=== PATIENT | female | born 2005 | race Caucasian/White ===

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

== ENCOUNTER 2024-08-19 14:02 | Emergency (ER) | payer OTHER, SELFPAY ==
--- OUTSIDE RECORDS SUMMARY | 2024-08-19 14:13 | XMS REPORT | Continuity of Care Document ---
Author Name Unknown Address [address] [facility] [address]. [address] [id number] [facility] Address [address] [facility]. [address] [place] [address] Care Team Providers Care Propulsion Engineer Name Role Phone IVONNE NAYAK Primary Care Physician Sushma Zuluaga Attending Clinician [phone] SUSHMA SESAY Attending Clinician UnavailIVONNE Mondragon Attending Clinician UnavailASHLEY Polk Attending Clinician Unavailable GREG PATEL Attending Clinician Unavailable GREG PATEL Attending Clinician Unavailable Ivonne Nayak PA-C Attending Clinician [phone] IVY TAVARES Attending Clinician CASIE Schuster Attending Clinician Unavailable CASIE ONEIL Attending Clinician Unavailable Simona Paz Attending Clinician Ivonne Escobar PA-C Attending Clinician [phone] Doctor Unassigned, [place] Attending Clinician U Ivy Oglesby MD Attending Clinician + [phone] Kadi Romero MD Attending Clinician [phone] KADI ROMERO Attending Clinician UnavailJanny Lincoln LMSW Attending Clinician [phone] Sushma Thornton Attending Clinician +[phone] ALEJO LLOYD Attending Clinici an Unavailable Alejo Lloyd MD Attending Clin ician RICARDO SEVERINO Attending Clinician Unavailable Mere PACRicardo Attending Clinician [phone] Asael Lugo MD, Hanna Attending Clinician + [phone] Christiano Hartman MD Attending Clinician [phone] CHRISTIANO HARTMAN Attending Clinician Unavailable YENI REINA Attending Clinician Unavail able Yeni Reina MD Attending Clinician [phone] Zain Rosas MD Attending Clinician [phone] ZAIN ROSAS Attending Clinician Unavailable JENNIFER ROCHE Attending Clinician Unavailab Jennifer Persaud DO Attending Clinician [phone] Jessica ORTEGA Attending Clinician Unavailable Jessica Jarvis Attending Clinician [phone] Therapy, [facility] Attending Clinician Unavailable Harman Escalona DO Attending Clinician [phone] HARMAN ESCALONA Attending Clinician Unavailable YORDAN SELF Attending Clinician Lesvia altman [facility] Attending Clinician U Yordan Crandall MD Attending Clinician + SEBASTIEN SOLANO Attending Clinician Unavailable Elizabeth MANUEL, Claudia [place] Attending Clinician Nurse, Jazz Bucio Attending Clinician Unavailable CHEN SHIELDS Attending Clinician Unavailable Chen Shields MD Attending Clinician [phone] Jeison Farrell Attending Clinician [phone] CHRISTIANO DISLA Attending Clinician Unavailable Christiano Franklni Attending Clinician [phone] KADI ROMERO Admitting Clinician UnavailCHEN Mclaughlin Admitting Clinician Unavailable CHRISTIANO DISLA Admitting Clinician Unavailable Payers Payer Name Policy Type Policy Number Effective Date Expirati on Date Source [employer] MEDICAID [id number] 2015 00:00:00 Problems Condition Name Condition Details Condition Category Status Onset Date Resolution Date Last Treatment Date Treating Clinician Comments Source Dysmenorrh ea Dysmenorrh ea Disease Active 3-12 00:00: 00 [facility] Counseling for initiation of control method Counseling for initiation of control method Disease Active 3-12 00:00: 00 [facility] Weight loss Weight loss Disease Active 1-11 00:00: 00 [facility] Recurrent infections Recurrent infections Disease Active 1-11 00:00: 00 [facility] Recurrent infections Recurrent infections Disease Active 1-11 00:00: 00 [facility] 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 02-14 00:00: 00 [facility] 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 02-14 00:00: 00 [facility] Allergies, Adverse Reactions, Alerts Allergy Name Allergy Type Status Severity Reaction(s) Onset Date Inactive Date Treating Clinician Comments Source NO KNOWN ALLERGIE S Drug Class Active [facility] Social History Social Habit Start Date Stop Date Quantity Comments Source Gender identity [facility] Sexual orientation U [facility] Alcoholic beverage intake 2024-05-10 00:00:00 2024-05-10 00:00:00 Lifetime non-drinker (finding) [facility] History of Social function 2024-02-15 00:00:00 2024-02-15 00:00:00 [facility] Alcohol intake 2023-10-21 00:00:00 2023-10-21 00:00:00 Lifetime non-drinker (finding) [facility] Tobacco use and exposure 2023-06-08 00:00:00 2023-06-08 00:00:00 User of smokeless tobacco [facility] Tobacco Comment 2023-06-08 00:00:00 2023-06-08 00:00:00 Vapes [facility] Exposure to SARS-CoV-2 (event) 2023-01-18 00:00:00 2023-01-28 14:47:00 Not sure [facility] Sex assigned at 2004 00:00:00 2005 00:00:00 [facility] Smoking Status Start Date Stop Date Source Never smoked tobacco [facility] Medications Ordered Medication Name Filled Medication Name Start Date Stop Date Current Medication? Ordering Clinician Indication Dosage Frequency Signature (SIG) Comments Components Source cetirizine (ZYRTEC) 10 mg tablet 2023-08 00:00: 00 09-11 05:59 :00 Yes [id number] 10mg Take 1 tablet by mouth in the morning for 30 days. [facility] fluticasone propionate 50 mcg/actuati on nasal spray 2023-08 00:00: 00 09-11 05:59 :00 Yes [id number] 1{spray } Use 1 [place] in each nostril in the morning for 30 days. [facility] FLUoxetine 10 mg capsule 05-10 00:00: 00 Yes [id number] Take one capsule once at day for two weeks then increase to two tabs po once a day [facility] norgestimat e-ethinyl estradioL 0.25-35 mg-mcg per tablet 02-25 00:00: 00 Yes [id number] 1{tbl} Take 1 tablet by mouth in the morning. [facility] traZODone 50 mg tablet 02-14 00:00: 00 Yes [id number] 50mg Take 1 tablet by mouth at bedtime. [facility] amoxicillin -pot clavulanate 600-42.9 mg/5 mL suspension 10-21 00:00: 00 02-14 00:00 :00 No [id number] Give 7.5 ml po bid for 10 days [facility] famotidine 20 mg tablet 2022-08 00:00: 00 Yes 20mg Take 1 tablet by mouth in the morning and 1 tablet in the evening. [facility] ondansetron 8 mg disintegrat ing tablet 2022-08 00:00: 00 Yes [id number] 8mg Take 1 tablet by mouth every 8 (eight) hours as needed for Nausea and Vomiting (N/V). [facility] traZODone 50 mg tablet 2022-08- 00:00: 00 02-14 00:00 :00 No [id number] 50mg Take 1 tablet by mouth at bedtime. [facility] azithromyci n (ZITHROMAX) 200 mg/5 mL suspension 2022-08 0-09 00:00: 00 07-22 00:00 :00 No [id number] 12.5 ml po day 1 then 6.25 ml po days 2-5 [facility] hydrOXYzine 10 mg tablet 03-30 00:00: 00 06-08 00:00 :00 No [id number] Take 1 to 2 po qhs for sleep and anxiety [facility] amoxicillin -pot clavulanate 600-42.9 mg/5 mL suspension - 00:00: 00 06-08 00:00 :00 No [id number] Take 10 ml po bid for 10 days [facility] FLUOXETINE 20 mg capsule - 00:00: 00 03-30 00:00 :00 No [id number] TAKE ONE (1) CAPSULE(S) BY MOUTH EVERY MORNING. [facility] pedi multivit no.140-iron fum (KIDS MULTIVITAMI N COMPLETE) 18 mg iron Chew -20 00:00: 00 Yes [id number] 1{tbl} Take 1 tablet by mouth in the morning. [facility] fluticasone propionate 50 mcg/actuati on nasal spray -20 00:00: 00 Yes [id number] 1{spray } Use 1 [place] in each nostril in the morning. [facility] pedi multivit no.140-iron fum (KIDS MULTIVITAMI N COMPLETE) 18 mg iron Chew -20 00:00: 00 Yes [id number] 1{tbl} Take 1 tablet by mouth in the morning. [facility] cetirizine 10 mg tablet -20 00:00: 03-30 00:00 :00 No [id number] 10mg Take 1 tablet by mouth in the morning. [facility] azithromyci n 250 mg tablet 12-18 00:00: 00 03-30 00:00 :00 No [id number] 250mg Take 1 tablet by mouth in the morning. [facility] FLUoxetine 20 mg capsule 12-18 00:00: 00 01-16 00:00 :00 No 20mg Take 1 capsule by mouth in the morning. [facility] ibuprofen (IBU) tablet 400 mg 12-02 20:00: 00 12-02 19:16 :00 No [id number] 400mg [facility] dextrometho rphan-guaif enesin 10-100 mg/5 mL solution 2021-08 0 00:00: 00 Yes [id number] 10mL Take 10 mL by mouth every 6 (six) hours as needed for Cough. [facility] cetirizine 10 mg tablet 2021-08 0 00:00: 00 12-18 00:00 :00 No [id number] 10mg Take 1 tablet by mouth in the morning. [facility] fluticasone propionate 50 mcg/actuati on nasal spray 2021-08 0 00:00: 00 12-18 00:00 :00 No [id number] 1{spray } Use 1 [place] in each nostril in the morning. [facility] azithromyci n (ZITHROMAX Z-MILENA) 250 mg tablet 2021-08 0 00:00: 00 12-18 00:00 :00 No [id number] 250mg Z-Milena = 500 mg day 1, then 250 mg days 2 to 5. [facility] Immune Globulin, Human,, IGG, (HIZENTRA) 4 gram/20 mL (20 %) subcutaneou s infusion RTU 9- 00:00: 00 Yes [id number] 8g inject 40 mL under the skin every 2 (two) weeks. [facility] pedi multivit no.140-iron fum (KIDS MULTIVITAMI N COMPLETE) 18 mg iron Chew 05-23 00:00: 00 12-18 00:00 :00 No [id number] 1{tbl} Take 1 tablet by mouth daily. [facility] cefdinir 125 mg/5 mL suspension 05-23 00:00: 00 06-07 04:59 :00 No [id number] 250mg Take 10 mL by mouth in the morning and 10 mL in the evening. Do all this for 14 days. [facility] ibuprofen (IBU) tablet 600 mg 03-21 05:30: 00 03-21 05:18 :00 No 600mg 600 mg, Oral, ONCE, 1 dose, On Thu03/21/22 at 0030, AAKASH [facility] Immune Globulin, Human,, IGG, (HIZENTRA) 4 gram/20 mL (20 %) subcutaneou s infusion RTU 02-24 00:00: 00 05-29 00:00 :00 No [id number] 8g inject 40 mL under the skin every 2 (two) weeks. [facility] amoxicillin 400 mg/5 mL oral suspension 01-01 00:00: 00 02-24 00:00 :00 No [id number] Give 12.5 ml PO BID for 10 days [facility] benzonatate (TESSALON PERLES) 100 mg capsule 01-01 00:00: 02-24 00:00 :00 No [id number] 100mg Take 1 capsule by mouth every 8 (eight) hours as needed for Cough. [facility] albuterol (PROAIR HFA) 90 mcg/actuati on inhaler 11-29 00:00: 00 Yes [id number] 2{puff} Inhale 2 Puffs every 6 (six) hours as needed for Wheezing or Shortness of Breath. [facility] fluticasone propionate 44 mcg/actuati on inhaler 11-29 00:00: 00 Yes [id number] 2{puff} Inhale 2 Puffs 2 (two) times daily. [facility] cetirizine 10 mg tablet 11-29 00:00: 00 06-16 00:00 :00 No [id number] 10mg Take 1 tablet by mouth daily. [facility] Immunizations Ordered Immunization Name Filled Immunization Name Date Status Comments Source Influenza Virus Vaccine Quad .5 mL IM 6+ MO (FLUZONE/FLULAVAL/FL UARIX) 2021-07-01 00:00:00 Completed Influenza Virus Vaccine Quad .5 mL IM 6+ MO 2021-07-01 00:00:00 Completed [facility] Influenza Virus Vaccine Quad .5 mL IM 6+ MO 2021-07-01 00:00:00 Completed [facility] Influenza Virus Vaccine Quad .5 mL IM 6+ MO 2021-07-01 00:00:00 Completed [facility] Influenza Virus Vaccine Quad .5 mL IM 6+ MO 2021-07-01 00:00:00 Completed [facility] Influenza Virus Vaccine Quad .5 mL IM 6+ MO 2021-07-01 00:00:00 Completed [facility] Influenza Virus Vaccine Quad .5 mL IM 6+ MO 2021-07-01 00:00:00 Completed [facility] Influenza Virus Vaccine Quad .5 mL IM 6+ MO 2021-07-01 00:00:00 Completed [facility] Influenza Virus Vaccine Quad .5 mL IM 6+ MO 2021-07-01 00:00:00 Completed [facility] Influenza Virus Vaccine Quad .5 mL IM 6+ MO 2021-07-01 00:00:00 Completed [facility] Influenza Virus Vaccine Quad .5 mL IM 6+ MO 2021-07-01 00:00:00 Completed [facility] Influenza Virus Vaccine Quad .5 mL IM 6+ MO 2021-07-01 00:00:00 Completed [facility] Influenza Virus Vaccine Quad .5 mL IM 6+ MO 2021-07-01 00:00:00 Completed [facility] Influenza Virus Vaccine Quad .5 mL IM 6+ MO 2021-07-01 00:00:00 Completed [facility] Influenza Virus Vaccine Quad .5 mL IM 6+ MO 2021-07-01 00:00:00 Completed [facility] Influenza Virus Vaccine Quad .5 mL IM 6+ MO 2021-07-01 00:00:00 Completed [facility] Influenza Virus Vaccine Quad .5 mL IM 6+ MO 2021-07-01 00:00:00 Completed [facility] Influenza Virus Vaccine Quad .5 mL IM 6+ MO 2021-07-01 00:00:00 Completed [facility] Influenza Virus Vaccine Quad .5 mL IM 6+ MO 2021-07-01 00:00:00 Completed [facility] Influenza Virus Vaccine Quad .5 mL IM 6+ MO 2021-07-01 00:00:00 Completed [facility] Influenza Virus Vaccine Quad .5 mL IM 6+ MO 2021-07-01 00:00:00 Completed [facility] Influenza Virus Vaccine Quad .5 mL IM 6+ MO 2021-07-01 00:00:00 Completed [facility] Influenza Virus Vaccine Quad .5 mL IM 6+ MO 2021-07-01 00:00:00 Completed [facility] Influenza Virus Vaccine Quad .5 mL IM 6+ MO 2021-07-01 00:00:00 Completed [facility] Influenza Virus Vaccine Quad .5 mL IM 6+ MO 2021-07-01 00:00:00 Completed [facility] Influenza Virus Vaccine Quad .5 mL IM 6+ MO 2021-07-01 00:00:00 Completed [facility] Influenza Virus Vaccine Quad .5 mL IM 6+ MO 2021-07-01 00:00:00 Completed [facility] Influenza Virus Vaccine Quad .5 mL IM 6+ MO 2021-07-01 00:00:00 Completed [facility] Influenza Virus Vaccine Quad .5 mL IM 6+ MO 2021-07-01 00:00:00 Completed [facility] Influenza Virus Vaccine Quad .5 mL IM 6+ MO 2021-07-01 00:00:00 Completed [facility] Influenza Virus Vaccine Quad .5 mL IM 6+ MO 2021-07-01 00:00:00 Completed [facility] Influenza Virus Vaccine Quad .5 mL IM 6+ MO 2021-07-01 00:00:00 Completed [facility] Influenza Virus Vaccine Quad .5 mL IM 6+ MO 2021-07-01 00:00:00 Completed [facility] Influenza Virus Vaccine Quad .5 mL IM 6+ MO (FLUZONE/FLULAVAL/FL UARIX) 2021-07-01 00:00:00 Completed [facility] Influenza Virus Vaccine Quad .5 mL IM 6+ MO (FLUZONE/FLULAVAL/FL UARIX) 2020-11-08 00:00:00 Completed [facility] Influenza Virus Vaccine Quad .5 mL IM 6+ MO 2020-11-08 00:00:00 Completed [facility] Influenza Virus Vaccine Quad .5 mL IM 6+ MO 2020-11-08 00:00:00 Completed [facility] Influenza Virus Vaccine Quad .5 mL IM 6+ MO 2020-11-08 00:00:00 Completed [facility] Influenza Virus Vaccine Quad .5 mL IM 6+ MO 2020-11-08 00:00:00 Completed [facility] Influenza Virus Vaccine Quad .5 mL IM 6+ MO 2020-11-08 00:00:00 Completed [facility] Influenza Virus Vaccine Quad .5 mL IM 6+ MO 2020-11-08 00:00:00 Completed [facility] Influenza Virus Vaccine Quad .5 mL IM 6+ MO 2020-11-08 00:00:00 Completed [facility] Influenza Virus Vaccine Quad .5 mL IM 6+ MO 2020-11-08 00:00:00 Completed [facility] Influenza Virus Vaccine Quad .5 mL IM 6+ MO 2020-11-08 00:00:00 Completed [facility] Influenza Virus Vaccine Quad .5 mL IM 6+ MO 2020-11-08 00:00:00 Completed [facility] Influenza Virus Vaccine Quad .5 mL IM 6+ MO 2020-11-08 00:00:00 Completed [facility] Influenza Virus Vaccine Quad .5 mL IM 6+ MO 2020-11-08 00:00:00 Completed [facility] Influenza Virus Vaccine Quad .5 mL IM 6+ MO 2020-11-08 00:00:00 Completed [facility] Influenza Virus Vaccine Quad .5 mL IM 6+ MO 2020-11-08 00:00:00 Completed [facility] Influenza Virus Vaccine Quad .5 mL IM 6+ MO 2020-11-08 00:00:00 Completed [facility] Influenza Virus Vaccine Quad .5 mL IM 6+ MO 2020-11-08 00:00:00 Completed [facility] Influenza Virus Vaccine Quad .5 mL IM 6+ MO 2020-11-08 00:00:00 Completed [facility] Influenza Virus Vaccine Quad .5 mL IM 6+ MO 2020-11-08 00:00:00 Completed [facility] Influenza Virus Vaccine Quad .5 mL IM 6+ MO 2020-11-08 00:00:00 Completed [facility] Influenza Virus Vaccine Quad .5 mL IM 6+ MO 2020-11-08 00:00:00 Completed [facility] Influenza Virus Vaccine Quad .5 mL IM 6+ MO 2020-11-08 00:00:00 Completed [facility] Influenza Virus Vaccine Quad .5 mL IM 6+ MO 2020-11-08 00:00:00 Completed [facility] Influenza Virus Vaccine Quad .5 mL IM 6+ MO 2020-11-08 00:00:00 Completed [facility] Influenza Virus Vaccine Quad .5 mL IM 6+ MO 2020-11-08 00:00:00 Completed [facility] Influenza Virus Vaccine Quad .5 mL IM 6+ MO 2020-11-08 00:00:00 Completed [facility] Influenza Virus Vaccine Quad .5 mL IM 6+ MO 2020-11-08 00:00:00 Completed [facility] Influenza Virus Vaccine Quad .5 mL IM 6+ MO 2020-11-08 00:00:00 Completed [facility] Influenza Virus Vaccine Quad .5 mL IM 6+ MO 2020-11-08 00:00:00 Completed [facility] Influenza Virus Vaccine Quad .5 mL IM 6+ MO 2020-11-08 00:00:00 Completed [facility] Influenza Virus Vaccine Quad .5 mL IM 6+ MO 2020-11-08 00:00:00 Completed [facility] Influenza Virus Vaccine Quad .5 mL IM 6+ MO 2020-11-08 00:00:00 Completed [facility] Influenza Virus Vaccine Quad .5 mL IM 6+ MO 2020-11-08 00:00:00 Completed [facility] Influenza Virus Vaccine Quad .5 mL IM 6+ MO (FLUZONE/FLULAVAL/FL UARIX) 2020-11-08 00:00:00 Completed [facility] Pneumococcal Polysaccharide, PPSV23 (PNEUMOVAX) 2020-09-24 00:00:00 Completed [facility] TDAP 2020-09-24 00:00:00 Completed [facility] Pneumococcal Polysaccharide, PPSV23 (PNEUMOVAX) 2020-09-24 00:00:00 Completed [facility] TDAP 2020-09-24 00:00:00 Completed [facility] Pneumococcal Polysaccharide, PPSV23 (PNEUMOVAX) 2020-09-24 00:00:00 Completed [facility] TDAP 2020-09-24 00:00:00 Completed [facility] Pneumococcal Polysaccharide, PPSV23 (PNEUMOVAX) 2020-09-24 00:00:00 Completed [facility] TDAP 2020-09-24 00:00:00 Completed [facility] Pneumococcal Polysaccharide, PPSV23 (PNEUMOVAX) 2020-09-24 00:00:00 Completed [facility] TDAP 2020-09-24 00:00:00 Completed [facility] Pneumococcal Polysaccharide, PPSV23 (PNEUMOVAX) 2020-09-24 00:00:00 Completed [facility] TDAP 2020-09-24 00:00:00 Completed [facility] Pneumococcal Polysaccharide, PPSV23 (PNEUMOVAX) 2020-09-24 00:00:00 Completed [facility] TDAP 2020-09-24 00:00:00 Completed [facility] Pneumococcal Polysaccharide, PPSV23 (PNEUMOVAX) 2020-09-24 00:00:00 Completed [facility] TDAP 2020-09-24 00:00:00 Completed [facility] Pneumococcal Polysaccharide, PPSV23 (PNEUMOVAX) 2020-09-24 00:00:00 Completed [facility] TDAP 2020-09-24 00:00:00 Completed [facility] Pneumococcal Polysaccharide, PPSV23 (PNEUMOVAX) 2020-09-24 00:00:00 Completed [facility] TDAP 2020-09-24 00:00:00 Completed [facility] Pneumococcal Polysaccharide, PPSV23 (PNEUMOVAX) 2020-09-24 00:00:00 Completed [facility] TDAP 2020-09-24 00:00:00 Completed [facility] Pneumococcal Polysaccharide, PPSV23 (PNEUMOVAX) 2020-09-24 00:00:00 Completed [facility] TDAP 2020-09-24 00:00:00 Completed [facility] Pneumococcal Polysaccharide, PPSV23 (PNEUMOVAX) 2020-09-24 00:00:00 Completed [facility] TDAP 2020-09-24 00:00:00 Completed [facility] Pneumococcal Polysaccharide, PPSV23 (PNEUMOVAX) 2020-09-24 00:00:00 Completed [facility] TDAP 2020-09-24 00:00:00 Completed [facility] Pneumococcal Polysaccharide, PPSV23 (PNEUMOVAX) 2020-09-24 00:00:00 Completed [facility] TDAP 2020-09-24 00:00:00 Completed [facility] Pneumococcal Polysaccharide, PPSV23 (PNEUMOVAX) 2020-09-24 00:00:00 Completed [facility] TDAP 2020-09-24 00:00:00 Completed Pneumococcal Polysaccharide, PPSV23 (PNEUMOVAX) 2020-09-24 00:00:00 Completed [facility] TDAP 2020-09-24 00:00:00 Completed [facility] Pneumococcal Polysaccharide, PPSV23 (PNEUMOVAX) 2020-09-24 00:00:00 Completed [facility] TDAP 2020-09-24 00:00:00 Completed [facility] Pneumococcal Polysaccharide, PPSV23 (PNEUMOVAX) 2020-09-24 00:00:00 Completed [facility] TDAP 2020-09-24 00:00:00 Completed [facility] Pneumococcal Polysaccharide, PPSV23 (PNEUMOVAX) 2020-09-24 00:00:00 Completed [facility] TDAP 2020-09-24 00:00:00 Completed [facility] Pneumococcal Polysaccharide, PPSV23 (PNEUMOVAX) 2020-09-24 00:00:00 Completed [facility] TDAP 2020-09-24 00:00:00 Completed [facility] Pneumococcal Polysaccharide, PPSV23 (PNEUMOVAX) 2020-09-24 00:00:00 Completed [facility] TDAP 2020-09-24 00:00:00 Completed [facility] Pneumococcal Polysaccharide, PPSV23 (PNEUMOVAX) 2020-09-24 00:00:00 Completed [facility] TDAP 2020-09-24 00:00:00 Completed [facility] Pneumococcal Polysaccharide, PPSV23 (PNEUMOVAX) 2020-09-24 00:00:00 Completed [facility] TDAP 2020-09-24 00:00:00 Completed [facility] Pneumococcal Polysaccharide, PPSV23 (PNEUMOVAX) 2020-09-24 00:00:00 Completed [facility] TDAP 2020-09-24 00:00:00 Completed [facility] Pneumococcal Polysaccharide, PPSV23 (PNEUMOVAX) 2020-09-24 00:00:00 Completed [facility] TDAP 2020-09-24 00:00:00 Completed [facility] Pneumococcal Polysaccharide, PPSV23 (PNEUMOVAX) 2020-09-24 00:00:00 Completed [facility] TDAP 2020-09-24 00:00:00 Completed [facility] Pneumococcal Polysaccharide, PPSV23 (PNEUMOVAX) 2020-09-24 00:00:00 Completed [facility] TDAP 2020-09-24 00:00:00 Completed [facility] Pneumococcal Polysaccharide, PPSV23 (PNEUMOVAX) 2020-09-24 00:00:00 Completed [facility] TDAP 2020-09-24 00:00:00 Completed [facility] Pneumococcal Polysaccharide, PPSV23 (PNEUMOVAX) 2020-09-24 00:00:00 Completed [facility] TDAP 2020-09-24 00:00:00 Completed [facility] Pneumococcal Polysaccharide, PPSV23 (PNEUMOVAX) 2020-09-24 00:00:00 Completed [facility] TDAP 2020-09-24 00:00:00 Completed [facility] Pneumococcal Polysaccharide, PPSV23 (PNEUMOVAX) 2020-09-24 00:00:00 Completed [facility] TDAP 2020-09-24 00:00:00 Completed [facility] Pneumococcal Polysaccharide, PPSV23 (PNEUMOVAX) 2020-09-24 00:00:00 Completed [facility] TDAP 2020-09-24 00:00:00 Completed [facility] Pneumococcal Polysaccharide, PPSV23 (PNEUMOVAX) 2020-09-24 00:00:00 Completed [facility] TDAP 2020-09-24 00:00:00 Completed [facility] Meningococcal Polysaccharide (groups A, C, Y and W-135) conjugate vaccine (MCV4P) 2020-09-10 00:00:00 Completed [facility] Meningococcal Polysaccharide (groups A, C, Y and W-135) conjugate vaccine (MCV4P) 2020-09-10 00:00:00 Completed [facility] Meningococcal Polysaccharide (groups A, C, Y and W-135) conjugate vaccine (MCV4P) 2020-09-10 00:00:00 Completed [facility] Meningococcal Polysaccharide (groups A, C, Y and W-135) conjugate vaccine (MCV4P) 2020-09-10 00:00:00 Completed [facility] Meningococcal Polysaccharide (groups A, C, Y and W-135) conjugate vaccine (MCV4P) 2020-09-10 00:00:00 Completed [facility] Meningococcal Polysaccharide (groups A, C, Y and W-135) conjugate vaccine (MCV4P) 2020-09-10 00:00:00 Completed [facility] Meningococcal Polysaccharide (groups A, C, Y and W-135) conjugate vaccine (MCV4P) 2020-09-10 00:00:00 Completed [facility] Meningococcal Polysaccharide (groups A, C, Y and W-135) conjugate vaccine (MCV4P) 2020-09-10 00:00:00 Completed [facility] Meningococcal Polysaccharide (groups A, C, Y and W-135) conjugate vaccine (MCV4P) 2020-09-10 00:00:00 Completed [facility] Meningococcal Polysaccharide (groups A, C, Y and W-135) conjugate vaccine (MCV4P) 2020-09-10 00:00:00 Completed [facility] Meningococcal Polysaccharide (groups A, C, Y and W-135) conjugate vaccine (MCV4P) 2020-09-10 00:00:00 Completed [facility] Meningococcal Polysaccharide (groups A, C, Y and W-135) conjugate vaccine (MCV4P) 2020-09-10 00:00:00 Completed [facility] Meningococcal Polysaccharide (groups A, C, Y and W-135) conjugate vaccine (MCV4P) 2020-09-10 00:00:00 Completed [facility] Meningococcal Polysaccharide (groups A, C, Y and W-135) conjugate vaccine (MCV4P) 2020-09-10 00:00:00 Completed [facility] Meningococcal Polysaccharide (groups A, C, Y and W-135) conjugate vaccine (MCV4P) 2020-09-10 00:00:00 Completed [facility] Meningococcal Polysaccharide (groups A, C, Y and W-135) conjugate vaccine (MCV4P) 2020-09-10 00:00:00 Completed [facility] Meningococcal Polysaccharide (groups A, C, Y and W-135) conjugate vaccine (MCV4P) 2020-09-10 00:00:00 Completed [facility] Meningococcal Polysaccharide (groups A, C, Y and W-135) conjugate vaccine (MCV4P) 2020-09-10 00:00:00 Completed [facility] Meningococcal Polysaccharide (groups A, C, Y and W-135) conjugate vaccine (MCV4P) 2020-09-10 00:00:00 Completed [facility] Meningococcal Polysaccharide (groups A, C, Y and W-135) conjugate vaccine (MCV4P) 2020-09-10 00:00:00 Completed [facility] Meningococcal Polysaccharide (groups A, C, Y and W-135) conjugate vaccine (MCV4P) 2020-09-10 00:00:00 Completed [facility] Meningococcal Polysaccharide (groups A, C, Y and W-135) conjugate vaccine (MCV4P) 2020-09-10 00:00:00 Completed [facility] Meningococcal Polysaccharide (groups A, C, Y and W-135) conjugate vaccine (MCV4P) 2020-09-10 00:00:00 Completed [facility] Meningococcal Polysaccharide (groups A, C, Y and W-135) conjugate vaccine (MCV4P) 2020-09-10 00:00:00 Completed [facility] Meningococcal Polysaccharide (groups A, C, Y and W-135) conjugate vaccine (MCV4P) 2020-09-10 00:00:00 Completed [facility] Meningococcal Polysaccharide (groups A, C, Y and W-135) conjugate vaccine (MCV4P) 2020-09-10 00:00:00 Completed [facility] Meningococcal Polysaccharide (groups A, C, Y and W-135) conjugate vaccine (MCV4P) 2020-09-10 00:00:00 Completed [facility] Meningococcal Polysaccharide (groups A, C, Y and W-135) conjugate vaccine (MCV4P) 2020-09-10 00:00:00 Completed [facility] Meningococcal Polysaccharide (groups A, C, Y and W-135) conjugate vaccine (MCV4P) 2020-09-10 00:00:00 Completed [facility] Meningococcal Polysaccharide (groups A, C, Y and W-135) conjugate vaccine (MCV4P) 2020-09-10 00:00:00 Completed [facility] Meningococcal Polysaccharide (groups A, C, Y and W-135) conjugate vaccine (MCV4P) 2020-09-10 00:00:00 Completed [facility] Meningococcal Polysaccharide (groups A, C, Y and W-135) conjugate vaccine (MCV4P) 2020-09-10 00:00:00 Completed [facility] Meningococcal Polysaccharide (groups A, C, Y and W-135) conjugate vaccine (MCV4P) 2020-09-10 00:00:00 Completed [facility] Meningococcal Polysaccharide (groups A, C, Y and W-135) conjugate vaccine (MCV4P) 2020-09-10 00:00:00 Completed [facility] HPV9 2020-08-21 00:00:00 Completed HPV9 2020-08-21 00:00:00 Completed [facility] HPV9 2020-08-21 00:00:00 Completed [facility] HPV9 2020-08-21 00:00:00 Completed [facility] HPV9 2020-08-21 00:00:00 Completed [facility] HPV9 2020-08-21 00:00:00 Completed [facility] HPV9 2020-08-21 00:00:00 Completed [facility] HPV9 2020-08-21 00:00:00 Completed [facility] HPV9 2020-08-21 00:00:00 Completed [facility] HPV9 2020-08-21 00:00:00 Completed [facility] HPV9 2020-08-21 00:00:00 Completed [facility] HPV9 2020-08-21 00:00:00 Completed [facility] HPV9 2020-08-21 00:00:00 Completed [facility] HPV9 2020-08-21 00:00:00 Completed [facility] HPV9 2020-08-21 00:00:00 Completed [facility] HPV9 2020-08-21 00:00:00 Completed [facility] HPV9 2020-08-21 00:00:00 Completed [facility] HPV9 2020-08-21 00:00:00 Completed [facility] HPV9 2020-08-21 00:00:00 Completed [facility] HPV9 2020-08-21 00:00:00 Completed [facility] HPV9 2020-08-21 00:00:00 Completed [facility] HPV9 2020-08-21 00:00:00 Completed [facility] HPV9 2020-08-21 00:00:00 Completed [facility] HPV9 2020-08-21 00:00:00 Completed [facility] HPV9 2020-08-21 00:00:00 Completed [facility] HPV9 2020-08-21 00:00:00 Completed [facility] HPV9 2020-08-21 00:00:00 Completed [facility] HPV9 2020-08-21 00:00:00 Completed [facility] HPV9 2020-08-21 00:00:00 Completed [facility] HPV9 2020-08-21 00:00:00 Completed [facility] HPV9 2020-08-21 00:00:00 Completed [facility] HPV9 2020-08-21 00:00:00 Completed [facility] HPV9 2020-08-21 00:00:00 Completed [facility] HPV9 2020-08-21 00:00:00 Completed [facility] HPV9 2020-05-21 00:00:00 Completed HPV9 2020-05-21 00:00:00 Completed [facility] HPV9 2020-05-21 00:00:00 Completed [facility] HPV9 2020-05-21 00:00:00 Completed [facility] HPV9 2020-05-21 00:00:00 Completed [facility] HPV9 2020-05-21 00:00:00 Completed [facility] HPV9 2020-05-21 00:00:00 Completed [facility] HPV9 2020-05-21 00:00:00 Completed [facility] HPV9 2020-05-21 00:00:00 Completed [facility] HPV9 2020-05-21 00:00:00 Completed [facility] HPV9 2020-05-21 00:00:00 Completed [facility] HPV9 2020-05-21 00:00:00 Completed [facility] HPV9 2020-05-21 00:00:00 Completed [facility] HPV9 2020-05-21 00:00:00 Completed [facility] HPV9 2020-05-21 00:00:00 Completed [facility] HPV9 2020-05-21 00:00:00 Completed [facility] HPV9 2020-05-21 00:00:00 Completed [facility] HPV9 2020-05-21 00:00:00 Completed [facility] HPV9 2020-05-21 00:00:00 Completed [facility] HPV9 2020-05-21 00:00:00 Completed [facility] HPV9 2020-05-21 00:00:00 Completed [facility] HPV9 2020-05-21 00:00:00 Completed [facility] HPV9 2020-05-21 00:00:00 Completed [facility] HPV9 2020-05-21 00:00:00 Completed [facility] HPV9 2020-05-21 00:00:00 Completed [facility] HPV9 2020-05-21 00:00:00 Completed [facility] HPV9 2020-05-21 00:00:00 Completed [facility] HPV9 2020-05-21 00:00:00 Completed [facility] HPV9 2020-05-21 00:00:00 Completed [facility] HPV9 2020-05-21 00:00:00 Completed [facility] HPV9 2020-05-21 00:00:00 Completed [facility] HPV9 2020-05-21 00:00:00 Completed [facility] HPV9 2020-05-21 00:00:00 Completed [facility] HPV9 2020-05-21 00:00:00 Completed [facility] HPV9 2020-02-20 00:00:00 Completed [facility] HPV9 2020-02-20 00:00:00 Completed [facility] HPV9 2020-02-20 00:00:00 Completed [facility] HPV9 2020-02-20 00:00:00 Completed [facility] HPV9 2020-02-20 00:00:00 Completed [facility] HPV9 2020-02-20 00:00:00 Completed [facility] HPV9 2020-02-20 00:00:00 Completed [facility] HPV9 2020-02-20 00:00:00 Completed [facility] HPV9 2020-02-20 00:00:00 Completed [facility] HPV9 2020-02-20 00:00:00 Completed [facility] HPV9 2020-02-20 00:00:00 Completed [facility] HPV9 2020-02-20 00:00:00 Completed [facility] HPV9 2020-02-20 00:00:00 Completed [facility] HPV9 2020-02-20 00:00:00 Completed [facility] HPV9 2020-02-20 00:00:00 Completed [facility] HPV9 2020-02-20 00:00:00 Completed [facility] HPV9 2020-02-20 00:00:00 Completed [facility] HPV9 2020-02-20 00:00:00 Completed [facility] HPV9 2020-02-20 00:00:00 Completed [facility] HPV9 2020-02-20 00:00:00 Completed [facility] HPV9 2020-02-20 00:00:00 Completed [facility] HPV9 2020-02-20 00:00:00 Completed [facility] HPV9 2020-02-20 00:00:00 Completed [facility] HPV9 2020-02-20 00:00:00 Completed [facility] HPV9 2020-02-20 00:00:00 Completed [facility] HPV9 2020-02-20 00:00:00 Completed [facility] HPV9 2020-02-20 00:00:00 Completed [facility] HPV9 2020-02-20 00:00:00 Completed [facility] HPV9 2020-02-20 00:00:00 Completed [facility] HPV9 2020-02-20 00:00:00 Completed [facility] HPV9 2020-02-20 00:00:00 Completed [facility] HPV9 2020-02-20 00:00:00 Completed [facility] HPV9 2020-02-20 00:00:00 Completed [facility] HPV9 2020-02-20 00:00:00 Completed [facility] Influenza Virus Vaccine Quad .5 mL IM 6+ MO 2019-07-07 00:00:00 Completed [facility] Influenza Virus Vaccine Quad .5 mL IM 6+ MO 2019-07-07 00:00:00 Completed [facility] Influenza Virus Vaccine Quad .5 mL IM 6+ MO 2019-07-07 00:00:00 Completed [facility] Influenza Virus Vaccine Quad .5 mL IM 6+ MO 2019-07-07 00:00:00 Completed [facility] Influenza Virus Vaccine Quad .5 mL IM 6+ MO 2019-07-07 00:00:00 Completed [facility] Influenza Virus Vaccine Quad .5 mL IM 6+ MO 2019-07-07 00:00:00 Completed [facility] Influenza Virus Vaccine Quad .5 mL IM 6+ MO 2019-07-07 00:00:00 Completed [facility] Influenza Virus Vaccine Quad .5 mL IM 6+ MO 2019-07-07 00:00:00 Completed [facility] Influenza Virus Vaccine Quad .5 mL IM 6+ MO 2019-07-07 00:00:00 Completed [facility] Influenza Virus Vaccine Quad .5 mL IM 6+ MO 2019-07-07 00:00:00 Completed [facility] Influenza Virus Vaccine Quad .5 mL IM 6+ MO 2019-07-07 00:00:00 Completed [facility] Influenza Virus Vaccine Quad .5 mL IM 6+ MO 2019-07-07 00:00:00 Completed [facility] Influenza Virus Vaccine Quad .5 mL IM 6+ MO 2019-07-07 00:00:00 Completed [facility] Influenza Virus Vaccine Quad .5 mL IM 6+ MO 2019-07-07 00:00:00 Completed [facility] Influenza Virus Vaccine Quad .5 mL IM 6+ MO 2019-07-07 00:00:00 Completed [facility] Influenza Virus Vaccine Quad .5 mL IM 6+ MO 2019-07-07 00:00:00 Completed [facility] Influenza Virus Vaccine Quad .5 mL IM 6+ MO 2019-07-07 00:00:00 Completed [facility] Influenza Virus Vaccine Quad .5 mL IM 6+ MO 2019-07-07 00:00:00 Completed [facility] Influenza Virus Vaccine Quad .5 mL IM 6+ MO 2019-07-07 00:00:00 Completed [facility] Influenza Virus Vaccine Quad .5 mL IM 6+ MO 2019-07-07 00:00:00 Completed [facility] Influenza Virus Vaccine Quad .5 mL IM 6+ MO 2019-07-07 00:00:00 Completed [facility] Influenza Virus Vaccine Quad .5 mL IM 6+ MO 2019-07-07 00:00:00 Completed [facility] Influenza Virus Vaccine Quad .5 mL IM 6+ MO 2019-07-07 00:00:00 Completed [facility] Influenza Virus Vaccine Quad .5 mL IM 6+ MO 2019-07-07 00:00:00 Completed [facility] Influenza Virus Vaccine Quad .5 mL IM 6+ MO 2019-07-07 00:00:00 Completed [facility] Influenza Virus Vaccine Quad .5 mL IM 6+ MO 2019-07-07 00:00:00 Completed [facility] Influenza Virus Vaccine Quad .5 mL IM 6+ MO 2019-07-07 00:00:00 Completed [facility] Influenza Virus Vaccine Quad .5 mL IM 6+ MO 2019-07-07 00:00:00 Completed [facility] Influenza Virus Vaccine Quad .5 mL IM 6+ MO 2019-07-07 00:00:00 Completed [facility] Influenza Virus Vaccine Quad .5 mL IM 6+ MO 2019-07-07 00:00:00 Completed [facility] Influenza Virus Vaccine Quad .5 mL IM 6+ MO 2019-07-07 00:00:00 Completed [facility] Influenza Virus Vaccine Quad .5 mL IM 6+ MO 2019-07-07 00:00:00 Completed [facility] Influenza Virus Vaccine Quad .5 mL IM 6+ MO (FLUZONE/FLULAVAL/FL UARIX) 2019-07-07 00:00:00 Completed [facility] Influenza Virus Vaccine Quad .5 mL IM 6+ MO (FLUZONE/FLULAVAL/FL UARIX) 2019-07-07 00:00:00 Completed [facility] Meningococcal Polysaccharide (groups A, C, Y and W-135) conjugate vaccine (MCV4P) 2016-10-14 00:00:00 Completed TDAP 2016-10-14 00:00:00 Completed Meningococcal Polysaccharide (groups A, C, Y and W-135) conjugate vaccine (MCV4P) 2016-10-14 00:00:00 Completed [facility] TDAP 2016-10-14 00:00:00 Completed [facility] Meningococcal Polysaccharide (groups A, C, Y and W-135) conjugate vaccine (MCV4P) 2016-10-14 00:00:00 Completed [facility] TDAP 2016-10-14 00:00:00 Completed [facility] Meningococcal Polysaccharide (groups A, C, Y and W-135) conjugate vaccine (MCV4P) 2016-10-14 00:00:00 Completed [facility] TDAP 2016-10-14 00:00:00 Completed [facility] Meningococcal Polysaccharide (groups A, C, Y and W-135) conjugate vaccine (MCV4P) 2016-10-14 00:00:00 Completed [facility] TDAP 2016-10-14 00:00:00 Completed [facility] Meningococcal Polysaccharide (groups A, C, Y and W-135) conjugate vaccine (MCV4P) 2016-10-14 00:00:00 Completed [facility] TDAP 2016-10-14 00:00:00 Completed [facility] Meningococcal Polysaccharide (groups A, C, Y and W-135) conjugate vaccine (MCV4P) 2016-10-14 00:00:00 Completed [facility] TDAP 2016-10-14 00:00:00 Completed [facility] Meningococcal Polysaccharide (groups A, C, Y and W-135) conjugate vaccine (MCV4P) 2016-10-14 00:00:00 Completed [facility] TDAP 2016-10-14 00:00:00 Completed [facility] Meningococcal Polysaccharide (groups A, C, Y and W-135) conjugate vaccine (MCV4P) 2016-10-14 00:00:00 Completed [facility] TDAP 2016-10-14 00:00:00 Completed [facility] Meningococcal Polysaccharide (groups A, C, Y and W-135) conjugate vaccine (MCV4P) 2016-10-14 [facility] Meningococcal Polysaccharide (groups A, C, Y and W-135) conjugate vaccine (MCV4P) 2016-10-14 00:00:00 Completed [facility] TDAP 2016-10-14 00:00:00 Completed [facility] Meningococcal Polysaccharide (groups A, C, Y and W-135) conjugate vaccine (MCV4P) 2016-10-14 00:00:00 Completed [facility] TDAP 2016-10-14 00:00:00 Completed [facility] Meningococcal Polysaccharide (groups A, C, Y and W-135) conjugate vaccine (MCV4P) 2016-10-14 00:00:00 Completed [facility] TDAP 2016-10-14 00:00:00 Completed [facility] Meningococcal Polysaccharide (groups A, C, Y and W-135) conjugate vaccine (MCV4P) 2016-10-14 00:00:00 Completed [facility] TDAP 2016-10-14 00:00:00 Completed [facility] Meningococcal Polysaccharide (groups A, C, Y and W-135) conjugate vaccine (MCV4P) 2016-10-14 [facility] Meningococcal Polysaccharide (groups A, C, Y and W-135) conjugate vaccine (MCV4P) 2016-10-14 00:00:00 Completed [facility] TDAP 2016-10-14 00:00:00 Completed [facility] Meningococcal Polysaccharide (groups A, C, Y and W-135) conjugate vaccine (MCV4P) 2016-10-14 00:00:00 Completed [facility] TDAP 2016-10-14 00:00:00 Completed [facility] Meningococcal Polysaccharide (groups A, C, Y and W-135) conjugate vaccine (MCV4P) 2016-10-14 00:00:00 Completed [facility] TDAP 2016-10-14 00:00:00 Completed [facility] Meningococcal Polysaccharide (groups A, C, Y and W-135) conjugate vaccine (MCV4P) 2016-10-14 [facility] Meningococcal Polysaccharide (groups A, C, Y and W-135) conjugate vaccine (MCV4P) 2016-10-14 00:00:00 Completed [facility] TDAP 2016-10-14 00:00:00 Completed [facility] Meningococcal Polysaccharide (groups A, C, Y and W-135) conjugate vaccine (MCV4P) 2016-10-14 00:00:00 Completed [facility] TDAP 2016-10-14 00:00:00 Completed [facility] Meningococcal Polysaccharide (groups A, C, Y and W-135) conjugate vaccine (MCV4P) 2016-10-14 00:00:00 Completed [facility] TDAP 2016-10-14 00:00:00 Completed [facility] Meningococcal Polysaccharide (groups A, C, Y and W-135) conjugate vaccine (MCV4P) 2016-10-14 00:00:00 Completed [facility] TDAP 2016-10-14 00:00:00 Completed [facility] Meningococcal Polysaccharide (groups A, C, Y and W-135) conjugate vaccine (MCV4P) 2016-10-14 [facility] Meningococcal Polysaccharide (groups A, C, Y and W-135) conjugate vaccine (MCV4P) 2016-10-14 00:00:00 Completed [facility] TDAP 2016-10-14 00:00:00 Completed [facility] Meningococcal Polysaccharide (groups A, C, Y and W-135) conjugate vaccine (MCV4P) 2016-10-14 00:00:00 Completed [facility] TDAP 2016-10-14 00:00:00 Completed [facility] Meningococcal Polysaccharide (groups A, C, Y and W-135) conjugate vaccine (MCV4P) 2016-10-14 00:00:00 Completed [facility] TDAP 2016-10-14 00:00:00 Completed [facility] Meningococcal Polysaccharide (groups A, C, Y and W-135) conjugate vaccine (MCV4P) 2016-10-14 [facility] Meningococcal Polysaccharide (groups A, C, Y and W-135) conjugate vaccine (MCV4P) 2016-10-14 00:00:00 Completed [facility] TDAP 2016-10-14 00:00:00 Completed [facility] Meningococcal Polysaccharide (groups A, C, Y and W-135) conjugate vaccine (MCV4P) 2016-10-14 00:00:00 Completed [facility] TDAP 2016-10-14 00:00:00 Completed [facility] Meningococcal Polysaccharide (groups A, C, Y and W-135) conjugate vaccine (MCV4P) 2016-10-14 00:00:00 Completed [facility] TDAP 2016-10-14 00:00:00 Completed [facility] Meningococcal Polysaccharide (groups A, C, Y and W-135) conjugate vaccine (MCV4P) 2016-10-14 00:00:00 Completed [facility] TDAP 2016-10-14 00:00:00 Completed [facility] Meningococcal Polysaccharide (groups A, C, Y and W-135) conjugate vaccine (MCV4P) 2016-10-14 [facility] Meningococcal Polysaccharide (groups A, C, Y and W-135) conjugate vaccine (MCV4P) 2016-10-14 00:00:00 Completed [facility] TDAP 2016-10-14 00:00:00 Completed [facility] DTAP 2009-07-09 00:00:00 Completed [facility] DTAP 2009-07-09 00:00:00 Completed [facility] DTAP 2009-07-09 00:00:00 Completed [facility] DTAP 2009-07-09 00:00:00 Completed [facility] DTAP 2009-07-09 00:00:00 Completed [facility] DTAP 2009-07-09 00:00:00 Completed [facility] DTAP 2009-07-09 00:00:00 Completed [facility] DTAP 2009-07-09 00:00:00 Completed [facility] DTAP 2009-07-09 00:00:00 Completed [facility] DTAP 2009-07-09 00:00:00 Completed [facility] DTAP 2009-07-09 00:00:00 Completed [facility] DTAP 2009-07-09 00:00:00 Completed [facility] DTAP 2009-07-09 00:00:00 Completed [facility] DTAP 2009-07-09 00:00:00 Completed [facility] DTAP 2009-07-09 00:00:00 Completed [facility] DTAP 2009-07-09 00:00:00 Completed [facility] DTAP 2009-07-09 00:00:00 Completed [facility] DTAP 2009-07-09 00:00:00 Completed [facility] DTAP 2009-07-09 00:00:00 Completed [facility] DTAP 2009-07-09 00:00:00 Completed [facility] DTAP 2009-07-09 00:00:00 Completed [facility] DTAP 2009-07-09 00:00:00 Completed [facility] DTAP 2009-07-09 00:00:00 Completed [facility] DTAP 2009-07-09 00:00:00 Completed [facility] DTAP 2009-07-09 00:00:00 Completed [facility] DTAP 2009-07-09 00:00:00 Completed [facility] DTAP 2009-07-09 00:00:00 Completed [facility] DTAP 2009-07-09 00:00:00 Completed [facility] DTAP 2009-07-09 00:00:00 Completed [facility] DTAP 2009-07-09 00:00:00 Completed [facility] DTAP 2009-07-09 00:00:00 Completed [facility] DTAP 2009-07-09 00:00:00 Completed [facility] DTAP 2009-07-09 00:00:00 Completed [facility] DTAP 2009-07-09 00:00:00 Completed HEPATITIS A 2008-09-08 00:00:00 Completed MMR 2008-09-08 00:00:00 Completed Polio (IPV/OPV) 2008-09-08 00:00:00 Completed Varicella (varivax)(chicken pox) 2008-09-08 00:00:00 Completed HEPATITIS A 2008-09-08 00:00:00 Completed [facility] MMR 2008-09-08 00:00:00 Completed [facility] Polio (IPV/OPV) 2008-09-08 00:00:00 Completed [facility] Varicella (varivax)(chicken pox) 2008-09-08 00:00:00 Completed [facility] HEPATITIS A 2008-09-08 00:00:00 Completed [facility] MMR 2008-09-08 00:00:00 Completed [facility] Polio (IPV/OPV) 2008-09-08 00:00:00 Completed [facility] Varicella (varivax)(chicken pox) 2008-09-08 00:00:00 Completed [facility] HEPATITIS A 2008-09-08 00:00:00 Completed [facility] MMR 2008-09-08 00:00:00 Completed [facility] Polio (IPV/OPV) 2008-09-08 00:00:00 Completed [facility] Varicella (varivax)(chicken pox) 2008-09-08 00:00:00 Completed [facility] HEPATITIS A 2008-09-08 00:00:00 Completed [facility] MMR 2008-09-08 00:00:00 Completed [facility] Polio (IPV/OPV) 2008-09-08 00:00:00 Completed [facility] Varicella (varivax)(chicken pox) 2008-09-08 00:00:00 Completed [facility] HEPATITIS A 2008-09-08 00:00:00 Completed [facility] MMR 2008-09-08 00:00:00 Completed [facility] Polio (IPV/OPV) 2008-09-08 00:00:00 Completed [facility] Varicella (varivax)(chicken pox) 2008-09-08 00:00:00 Completed [facility] HEPATITIS A 2008-09-08 00:00:00 Completed [facility] MMR 2008-09-08 00:00:00 Completed [facility] Polio (IPV/OPV) 2008-09-08 00:00:00 Completed [facility] Varicella (varivax)(chicken pox) 2008-09-08 00:00:00 Completed [facility] HEPATITIS A 2008-09-08 00:00:00 Completed [facility] MMR 2008-09-08 00:00:00 Completed [facility] Polio (IPV/OPV) 2008-09-08 00:00:00 Completed [facility] Varicella (varivax)(chicken pox) 2008-09-08 00:00:00 Completed [facility] HEPATITIS A 2008-09-08 00:00:00 Completed [facility] MMR 2008-09-08 00:00:00 Completed [facility] Polio (IPV/OPV) 2008-09-08 00:00:00 Completed [facility] Varicella (varivax)(chicken pox) 2008-09-08 00:00:00 Completed [facility] HEPATITIS A 2008-09-08 00:00:00 Completed [facility] MMR 2008-09-08 00:00:00 Completed [facility] Polio (IPV/OPV) 2008-09-08 00:00:00 Completed [facility] Varicella (varivax)(chicken pox) 2008-09-08 00:00:00 Completed [facility] HEPATITIS A 2008-09-08 00:00:00 Completed [facility] 2008-09-08 00:00:00 Completed [facility] Polio (IPV/OPV) 2008-09-08 00:00:00 Completed [facility] Varicella (varivax)(chicken pox) 2008-09-08 00:00:00 Completed [facility] HEPATITIS A 2008-09-08 00:00:00 Completed [facility] MMR 2008-09-08 00:00:00 Completed [facility] Polio (IPV/OPV) 2008-09-08 00:00:00 Completed [facility] Varicella (varivax)(chicken pox) 2008-09-08 00:00:00 Completed [facility] HEPATITIS A 2008-09-08 00:00:00 Completed [facility] MMR 2008-09-08 00:00:00 Completed [facility] Polio (IPV/OPV) 2008-09-08 00:00:00 Completed [facility] Varicella (varivax)(chicken pox) 2008-09-08 00:00:00 Completed [facility] HEPATITIS A 2008-09-08 00:00:00 Completed [facility] 2008-09-08 00:00:00 Completed [facility] Polio (IPV/OPV) 2008-09-08 00:00:00 Completed [facility] Varicella (varivax)(chicken pox) 2008-09-08 00:00:00 Completed [facility] HEPATITIS A 2008-09-08 00:00:00 Completed [facility] MMR 2008-09-08 00:00:00 Completed [facility] Polio (IPV/OPV) 2008-09-08 00:00:00 Completed [facility] Varicella (varivax)(chicken pox) 2008-09-08 00:00:00 Completed [facility] HEPATITIS A 2008-09-08 00:00:00 Completed [facility] MMR 2008-09-08 00:00:00 Completed [facility] Polio (IPV/OPV) 2008-09-08 00:00:00 Completed [facility] Varicella (varivax)(chicken pox) 2008-09-08 00:00:00 Completed [facility] HEPATITIS A 2008-09-08 00:00:00 Completed [facility] MMR 2008-09-08 00:00:00 Completed [facility] Polio (IPV/OPV) 2008-09-08 00:00:00 Completed [facility] Varicella (varivax)(chicken pox) 2008-09-08 00:00:00 Completed [facility] HEPATITIS A 2008-09-08 00:00:00 Completed [facility] 2008-09-08 00:00:00 Completed [facility] Polio (IPV/OPV) 2008-09-08 00:00:00 Completed [facility] Varicella (varivax)(chicken pox) 2008-09-08 00:00:00 Completed [facility] HEPATITIS A 2008-09-08 00:00:00 Completed [facility] MMR 2008-09-08 00:00:00 Completed [facility] Polio (IPV/OPV) 2008-09-08 00:00:00 Completed [facility] Varicella (varivax)(chicken pox) 2008-09-08 00:00:00 Completed [facility] HEPATITIS A 2008-09-08 00:00:00 Completed [facility] 2008-09-08 00:00:00 Completed [facility] Polio (IPV/OPV) 2008-09-08 00:00:00 Completed [facility] Varicella (varivax)(chicken pox) 2008-09-08 00:00:00 Completed [facility] HEPATITIS A 2008-09-08 00:00:00 Completed [facility] MMR 2008-09-08 00:00:00 Completed [facility] Polio (IPV/OPV) 2008-09-08 00:00:00 Completed [facility] Varicella (varivax)(chicken pox) 2008-09-08 00:00:00 Completed [facility] HEPATITIS A 2008-09-08 00:00:00 Completed [facility] MMR 2008-09-08 00:00:00 Completed [facility] Polio (IPV/OPV) 2008-09-08 00:00:00 Completed [facility] Varicella (varivax)(chicken pox) 2008-09-08 00:00:00 Completed [facility] HEPATITIS A 2008-09-08 00:00:00 Completed [facility] MMR 2008-09-08 00:00:00 Completed [facility] Polio (IPV/OPV) 2008-09-08 00:00:00 Completed [facility] Varicella (varivax)(chicken pox) 2008-09-08 00:00:00 Completed [facility] HEPATITIS A 2008-09-08 00:00:00 Completed [facility] MMR 2008-09-08 00:00:00 Completed [facility] Polio (IPV/OPV) 2008-09-08 00:00:00 Completed [facility] Varicella (varivax)(chicken pox) 2008-09-08 00:00:00 Completed [facility] HEPATITIS A 2008-09-08 00:00:00 Completed [facility] MMR 2008-09-08 00:00:00 Completed [facility] Polio (IPV/OPV) 2008-09-08 00:00:00 Completed [facility] Varicella (varivax)(chicken pox) 2008-09-08 00:00:00 Completed [facility] HEPATITIS A 2008-09-08 00:00:00 Completed [facility] 2008-09-08 00:00:00 Completed [facility] Polio (IPV/OPV) 2008-09-08 00:00:00 Completed [facility] Varicella (varivax)(chicken pox) 2008-09-08 00:00:00 Completed [facility] HEPATITIS A 2008-09-08 00:00:00 Completed [facility] MMR 2008-09-08 00:00:00 Completed [facility] Polio (IPV/OPV) 2008-09-08 00:00:00 Completed [facility] Varicella (varivax)(chicken pox) 2008-09-08 00:00:00 Completed [facility] HEPATITIS A 2008-09-08 00:00:00 Completed [facility] MMR 2008-09-08 00:00:00 Completed [facility] Polio (IPV/OPV) 2008-09-08 00:00:00 Completed [facility] Varicella (varivax)(chicken pox) 2008-09-08 00:00:00 Completed [facility] HEPATITIS A 2008-09-08 00:00:00 Completed [facility] MMR 2008-09-08 00:00:00 Completed [facility] Polio (IPV/OPV) 2008-09-08 00:00:00 Completed [facility] Varicella (varivax)(chicken pox) 2008-09-08 00:00:00 Completed [facility] HEPATITIS A 2008-09-08 00:00:00 Completed [facility] MMR 2008-09-08 00:00:00 Completed [facility] Polio (IPV/OPV) 2008-09-08 00:00:00 Completed [facility] Varicella (varivax)(chicken pox) 2008-09-08 00:00:00 Completed [facility] HEPATITIS A 2008-09-08 00:00:00 Completed [facility] MMR 2008-09-08 00:00:00 Completed [facility] Polio (IPV/OPV) 2008-09-08 00:00:00 Completed [facility] Varicella (varivax)(chicken pox) 2008-09-08 00:00:00 Completed [facility] HEPATITIS A 2008-09-08 00:00:00 Completed [facility] MMR 2008-09-08 00:00:00 Completed [facility] Polio (IPV/OPV) 2008-09-08 00:00:00 Completed [facility] Varicella (varivax)(chicken pox) 2008-09-08 00:00:00 Completed [facility] HEPATITIS A 2008-09-08 00:00:00 Completed [facility] MMR 2008-09-08 00:00:00 Completed [facility] Polio (IPV/OPV) 2008-09-08 00:00:00 Completed [facility] Varicella (varivax)(chicken pox) 2008-09-08 00:00:00 Completed [facility] HEPATITIS A 2008-09-08 00:00:00 Completed [facility] MMR 2008-09-08 00:00:00 Completed [facility] Polio (IPV/OPV) 2008-09-08 00:00:00 Completed [facility] Varicella (varivax)(chicken pox) 2008-09-08 00:00:00 Completed [facility] HIB 4 Dose Schedule 2006-07-01 00:00:00 Completed HEPATITIS A 2006-07-01 00:00:00 Completed DTAP 2006-07-01 00:00:00 Completed [facility] HIB 4 Dose Schedule 2006-07-01 00:00:00 Completed [facility] HEPATITIS A 2006-07-01 00:00:00 Completed [facility] DTAP 2006-07-01 00:00:00 Completed [facility] HIB 4 Dose Schedule 2006-07-01 00:00:00 Completed [facility] HEPATITIS A 2006-07-01 00:00:00 Completed [facility] DTAP 2006-07-01 00:00:00 Completed [facility] HIB 4 Dose Schedule 2006-07-01 00:00:00 Completed [facility] HEPATITIS A 2006-07-01 00:00:00 Completed [facility] DTAP 2006-07-01 00:00:00 Completed [facility] HIB 4 Dose Schedule 2006-07-01 00:00:00 Completed [facility] HEPATITIS A 2006-07-01 00:00:00 Completed [facility] DTAP 2006-07-01 00:00:00 Completed [facility] HIB 4 Dose Schedule 2006-07-01 00:00:00 Completed [facility] HEPATITIS A 2006-07-01 00:00:00 Completed [facility] DTAP 2006-07-01 00:00:00 Completed [facility] HIB 4 Dose Schedule 2006-07-01 00:00:00 Completed [facility] HEPATITIS A 2006-07-01 00:00:00 Completed [facility] DTAP 2006-07-01 00:00:00 Completed [facility] HIB 4 Dose Schedule 2006-07-01 00:00:00 Completed [facility] HEPATITIS A 2006-07-01 00:00:00 Completed [facility] DTAP 2006-07-01 00:00:00 Completed [facility] HIB 4 Dose Schedule 2006-07-01 00:00:00 Completed [facility] HEPATITIS A 2006-07-01 00:00:00 Completed [facility] DTAP 2006-07-01 00:00:00 Completed [facility] HIB 4 Dose Schedule 2006-07-01 00:00:00 Completed [facility] HEPATITIS A 2006-07-01 00:00:00 Completed [facility] DTAP 2006-07-01 00:00:00 Completed [facility] HIB 4 Dose Schedule 2006-07-01 00:00:00 Completed [facility] HEPATITIS A 2006-07-01 00:00:00 Completed [facility] DTAP 2006-07-01 00:00:00 Completed [facility] HIB 4 Dose Schedule 2006-07-01 00:00:00 Completed [facility] HEPATITIS A 2006-07-01 00:00:00 Completed [facility] DTAP 2006-07-01 00:00:00 Completed [facility] HIB 4 Dose Schedule 2006-07-01 00:00:00 Completed [facility] HEPATITIS A 2006-07-01 00:00:00 Completed [facility] DTAP 2006-07-01 00:00:00 Completed [facility] HIB 4 Dose Schedule 2006-07-01 00:00:00 Completed [facility] HEPATITIS A 2006-07-01 00:00:00 Completed [facility] DTAP 2006-07-01 00:00:00 Completed [facility] HIB 4 Dose Schedule 2006-07-01 00:00:00 Completed [facility] HEPATITIS A 2006-07-01 00:00:00 Completed [facility] DTAP 2006-07-01 00:00:00 Completed [facility] HIB 4 Dose Schedule 2006-07-01 00:00:00 Completed [facility] HEPATITIS A 2006-07-01 00:00:00 Completed [facility] DTAP 2006-07-01 00:00:00 Completed [facility] HIB 4 Dose Schedule 2006-07-01 00:00:00 Completed [facility] HEPATITIS A 2006-07-01 00:00:00 Completed [facility] DTAP 2006-07-01 00:00:00 Completed [facility] HIB 4 Dose Schedule 2006-07-01 00:00:00 Completed [facility] HEPATITIS A 2006-07-01 00:00:00 Completed [facility] DTAP 2006-07-01 00:00:00 Completed [facility] HIB 4 Dose Schedule 2006-07-01 00:00:00 Completed [facility] HEPATITIS A 2006-07-01 00:00:00 Completed [facility] DTAP 2006-07-01 00:00:00 Completed [facility] HIB 4 Dose Schedule 2006-07-01 00:00:00 Completed [facility] HEPATITIS A 2006-07-01 00:00:00 Completed [facility] DTAP 2006-07-01 00:00:00 Completed [facility] HIB 4 Dose Schedule 2006-07-01 00:00:00 Completed [facility] HEPATITIS A 2006-07-01 00:00:00 Completed [facility] DTAP 2006-07-01 00:00:00 Completed [facility] HIB 4 Dose Schedule 2006-07-01 00:00:00 Completed [facility] HEPATITIS A 2006-07-01 00:00:00 Completed [facility] DTAP 2006-07-01 00:00:00 Completed [facility] HIB 4 Dose Schedule 2006-07-01 00:00:00 Completed [facility] HEPATITIS A 2006-07-01 00:00:00 Completed [facility] DTAP 2006-07-01 00:00:00 Completed [facility] HIB 4 Dose Schedule 2006-07-01 00:00:00 Completed [facility] HEPATITIS A 2006-07-01 00:00:00 Completed [facility] DTAP 2006-07-01 00:00:00 Completed [facility] HIB 4 Dose Schedule 2006-07-01 00:00:00 Completed [facility] HEPATITIS A 2006-07-01 00:00:00 Completed [facility] DTAP 2006-07-01 00:00:00 Completed [facility] HIB 4 Dose Schedule 2006-07-01 00:00:00 Completed [facility] HEPATITIS A 2006-07-01 00:00:00 Completed [facility] DTAP 2006-07-01 00:00:00 Completed [facility] HIB 4 Dose Schedule 2006-07-01 00:00:00 Completed [facility] HEPATITIS A 2006-07-01 00:00:00 Completed [facility] DTAP 2006-07-01 00:00:00 Completed [facility] HIB 4 Dose Schedule 2006-07-01 00:00:00 Completed [facility] HEPATITIS A 2006-07-01 00:00:00 Completed [facility] DTAP 2006-07-01 00:00:00 Completed [facility] HIB 4 Dose Schedule 2006-07-01 00:00:00 Completed [facility] HEPATITIS A 2006-07-01 00:00:00 Completed [facility] DTAP 2006-07-01 00:00:00 Completed [facility] HIB 4 Dose Schedule 2006-07-01 00:00:00 Completed [facility] HEPATITIS A 2006-07-01 00:00:00 Completed [facility] DTAP 2006-07-01 00:00:00 Completed [facility] HIB 4 Dose Schedule 2006-07-01 00:00:00 Completed [facility] HEPATITIS A 2006-07-01 00:00:00 Completed [facility] DTAP 2006-07-01 00:00:00 Completed [facility] HIB 4 Dose Schedule 2006-07-01 00:00:00 Completed [facility] HEPATITIS A 2006-07-01 00:00:00 Completed [facility] DTAP 2006-07-01 00:00:00 Completed [facility] HIB 4 Dose Schedule 2006-07-01 00:00:00 Completed [facility] HEPATITIS A 2006-07-01 00:00:00 Completed [facility] DTAP 2006-07-01 00:00:00 Completed [facility] HIB 4 Dose Schedule 2006-07-01 00:00:00 Completed [facility] HEPATITIS A 2006-07-01 00:00:00 Completed [facility] DTAP 2006-07-01 00:00:00 Completed MMR 2005-11-19 00:00:00 Completed Pneumococcal 13 Conjugate, PCV13 (Prevnar 13) 2005-11-19 00:00:00 Completed MMR 2005-11-19 00:00:00 Completed [facility] Pneumococcal 13 Conjugate, PCV13 (Prevnar 13) 2005-11-19 00:00:00 Completed [facility] MMR 2005-11-19 00:00:00 Completed [facility] Pneumococcal 13 Conjugate, PCV13 (Prevnar 13) 2005-11-19 00:00:00 Completed [facility] 2005-11-19 00:00:00 Completed [facility] Pneumococcal 13 Conjugate, PCV13 (Prevnar 13) 2005-11-19 00:00:00 Completed [facility] 2005-11-19 00:00:00 Completed [facility] Pneumococcal 13 Conjugate, PCV13 (Prevnar 13) 2005-11-19 00:00:00 Completed [facility] 2005-11-19 00:00:00 Completed [facility] Pneumococcal 13 Conjugate, PCV13 (Prevnar 13) 2005-11-19 00:00:00 Completed [facility] 2005-11-19 00:00:00 Completed [facility] Pneumococcal 13 Conjugate, PCV13 (Prevnar 13) 2005-11-19 00:00:00 Completed [facility] 2005-11-19 00:00:00 Completed [facility] Pneumococcal 13 Conjugate, PCV13 (Prevnar 13) 2005-11-19 00:00:00 Completed [facility] 2005-11-19 00:00:00 Completed [facility] Pneumococcal 13 Conjugate, PCV13 (Prevnar 13) 2005-11-19 00:00:00 Completed [facility] 2005-11-19 00:00:00 Completed [facility] Pneumococcal 13 Conjugate, PCV13 (Prevnar 13) 2005-11-19 00:00:00 Completed [facility] 2005-11-19 00:00:00 Completed [facility] Pneumococcal 13 Conjugate, PCV13 (Prevnar 13) 2005-11-19 00:00:00 Completed [facility] 2005-11-19 00:00:00 Completed [facility] Pneumococcal 13 Conjugate, PCV13 (Prevnar 13) 2005-11-19 00:00:00 Completed [facility] 2005-11-19 00:00:00 Completed [facility] Pneumococcal 13 Conjugate, PCV13 (Prevnar 13) 2005-11-19 00:00:00 Completed [facility] 2005-11-19 00:00:00 Completed [facility] Pneumococcal 13 Conjugate, PCV13 (Prevnar 13) 2005-11-19 00:00:00 Completed [facility] 2005-11-19 00:00:00 Completed [facility] Pneumococcal 13 Conjugate, PCV13 (Prevnar 13) 2005-11-19 00:00:00 Completed [facility] 2005-11-19 00:00:00 Completed [facility] Pneumococcal 13 Conjugate, PCV13 (Prevnar 13) 2005-11-19 00:00:00 Completed [facility] 2005-11-19 00:00:00 Completed [facility] Pneumococcal 13 Conjugate, PCV13 (Prevnar 13) 2005-11-19 00:00:00 Completed [facility] 2005-11-19 00:00:00 Completed [facility] Pneumococcal 13 Conjugate, PCV13 (Prevnar 13) 2005-11-19 00:00:00 Completed [facility] 2005-11-19 00:00:00 Completed [facility] Pneumococcal 13 Conjugate, PCV13 (Prevnar 13) 2005-11-19 00:00:00 Completed [facility] 2005-11-19 00:00:00 Completed [facility] Pneumococcal 13 Conjugate, PCV13 (Prevnar 13) 2005-11-19 00:00:00 Completed [facility] 2005-11-19 00:00:00 Completed [facility] Pneumococcal 13 Conjugate, PCV13 (Prevnar 13) 2005-11-19 00:00:00 Completed [facility] 2005-11-19 00:00:00 Completed [facility] Pneumococcal 13 Conjugate, PCV13 (Prevnar 13) 2005-11-19 00:00:00 Completed [facility] 2005-11-19 00:00:00 Completed [facility] Pneumococcal 13 Conjugate, PCV13 (Prevnar 13) 2005-11-19 00:00:00 Completed [facility] 2005-11-19 00:00:00 Completed [facility] Pneumococcal 13 Conjugate, PCV13 (Prevnar 13) 2005-11-19 00:00:00 Completed [facility] 2005-11-19 00:00:00 Completed [facility] Pneumococcal 13 Conjugate, PCV13 (Prevnar 13) 2005-11-19 00:00:00 Completed [facility] 2005-11-19 00:00:00 Completed [facility] Pneumococcal 13 Conjugate, PCV13 (Prevnar 13) 2005-11-19 00:00:00 Completed [facility] 2005-11-19 00:00:00 Completed [facility] Pneumococcal 13 Conjugate, PCV13 (Prevnar 13) 2005-11-19 00:00:00 Completed [facility] 2005-11-19 00:00:00 Completed [facility] Pneumococcal 13 Conjugate, PCV13 (Prevnar 13) 2005-11-19 00:00:00 Completed [facility] 2005-11-19 00:00:00 Completed [facility] Pneumococcal 13 Conjugate, PCV13 (Prevnar 13) 2005-11-19 00:00:00 Completed [facility] 2005-11-19 00:00:00 Completed [facility] Pneumococcal 13 Conjugate, PCV13 (Prevnar 13) 2005-11-19 00:00:00 Completed [facility] 2005-11-19 00:00:00 Completed [facility] Pneumococcal 13 Conjugate, PCV13 (Prevnar 13) 2005-11-19 00:00:00 Completed [facility] 2005-11-19 00:00:00 Completed [facility] Pneumococcal 13 Conjugate, PCV13 (Prevnar 13) 2005-11-19 00:00:00 Completed [facility] 2005-11-19 00:00:00 Completed [facility] Pneumococcal 13 Conjugate, PCV13 (Prevnar 13) 2005-11-19 00:00:00 Completed [facility] 2005-11-19 00:00:00 Completed [facility] Pneumococcal 13 Conjugate, PCV13 (Prevnar 13) 2005-11-19 00:00:00 Completed [facility] Varicella (varivax)(chicken pox) 2005-08-20 00:00:00 Completed Varicella (varivax)(chicken pox) 2005-08-20 00:00:00 Completed [facility] Varicella (varivax)(chicken pox) 2005-08-20 00:00:00 Completed [facility] Varicella (varivax)(chicken pox) 2005-08-20 00:00:00 Completed [facility] Varicella (varivax)(chicken pox) 2005-08-20 00:00:00 Completed [facility] Varicella (varivax)(chicken pox) 2005-08-20 00:00:00 Completed [facility] Varicella (varivax)(chicken pox) 2005-08-20 00:00:00 Completed [facility] Varicella (varivax)(chicken pox) 2005-08-20 00:00:00 Completed [facility] Varicella (varivax)(chicken pox) 2005-08-20 00:00:00 Completed [facility] Varicella (varivax)(chicken pox) 2005-08-20 00:00:00 Completed [facility] Varicella (varivax)(chicken pox) 2005-08-20 00:00:00 Completed [facility] Varicella (varivax)(chicken pox) 2005-08-20 00:00:00 Completed [facility] Varicella (varivax)(chicken pox) 2005-08-20 00:00:00 Completed [facility] Varicella (varivax)(chicken pox) 2005-08-20 00:00:00 Completed [facility] Varicella (varivax)(chicken pox) 2005-08-20 00:00:00 Completed [facility] Varicella (varivax)(chicken pox) 2005-08-20 00:00:00 Completed [facility] Varicella (varivax)(chicken pox) 2005-08-20 00:00:00 Completed [facility] Varicella (varivax)(chicken pox) 2005-08-20 00:00:00 Completed [facility] Varicella (varivax)(chicken pox) 2005-08-20 00:00:00 Completed [facility] Varicella (varivax)(chicken pox) 2005-08-20 00:00:00 Completed [facility] Varicella (varivax)(chicken pox) 2005-08-20 00:00:00 Completed [facility] Varicella (varivax)(chicken pox) 2005-08-20 00:00:00 Completed [facility] Varicella (varivax)(chicken pox) 2005-08-20 00:00:00 Completed [facility] Varicella (varivax)(chicken pox) 2005-08-20 00:00:00 Completed [facility] Varicella (varivax)(chicken pox) 2005-08-20 00:00:00 Completed [facility] Varicella (varivax)(chicken pox) 2005-08-20 00:00:00 Completed [facility] Varicella (varivax)(chicken pox) 2005-08-20 00:00:00 Completed [facility] Varicella (varivax)(chicken pox) 2005-08-20 00:00:00 Completed [facility] Varicella (varivax)(chicken pox) 2005-08-20 00:00:00 Completed [facility] Varicella (varivax)(chicken pox) 2005-08-20 00:00:00 Completed [facility] Varicella (varivax)(chicken pox) 2005-08-20 00:00:00 Completed [facility] Varicella (varivax)(chicken pox) 2005-08-20 00:00:00 Completed [facility] Varicella (varivax)(chicken pox) 2005-08-20 00:00:00 Completed [facility] Varicella (varivax)(chicken pox) 2005-08-20 00:00:00 Completed [facility] HIB 4 Dose Schedule 2005-02-27 00:00:00 Completed Hep B, Adol or Pedi Dosage 2005-02-27 00:00:00 Completed Pneumococcal 13 Conjugate, PCV13 (Prevnar 13) 2005-02-27 00:00:00 Completed Polio (IPV/OPV) 2005-02-27 00:00:00 Completed DTAP 2005-02-27 00:00:00 Completed [facility] HIB 4 Dose Schedule 2005-02-27 00:00:00 Completed [facility] Hep B, Adol or Pedi Dosage 2005-02-27 00:00:00 Completed [facility] Pneumococcal 13 Conjugate, PCV13 (Prevnar 13) 2005-02-27 00:00:00 Completed [facility] Polio (IPV/OPV) 2005-02-27 00:00:00 Completed [facility] DTAP 2005-02-27 00:00:00 Completed [facility] HIB 4 Dose Schedule 2005-02-27 00:00:00 Completed [facility] Hep B, Adol or Pedi Dosage 2005-02-27 00:00:00 Completed [facility] Pneumococcal 13 Conjugate, PCV13 (Prevnar 13) 2005-02-27 00:00:00 Completed [facility] Polio (IPV/OPV) 2005-02-27 00:00:00 Completed [facility] DTAP 2005-02-27 00:00:00 Completed [facility] HIB 4 Dose Schedule 2005-02-27 00:00:00 Completed [facility] Hep B, Adol or Pedi Dosage 2005-02-27 00:00:00 Completed [facility] Pneumococcal 13 Conjugate, PCV13 (Prevnar 13) 2005-02-27 00:00:00 Completed [facility] Polio (IPV/OPV) 2005-02-27 00:00:00 Completed [facility] DTAP 2005-02-27 00:00:00 Completed [facility] HIB 4 Dose Schedule 2005-02-27 00:00:00 Completed [facility] Hep B, Adol or Pedi Dosage 2005-02-27 00:00:00 Completed [facility] Pneumococcal 13 Conjugate, PCV13 (Prevnar 13) 2005-02-27 00:00:00 Completed [facility] Polio (IPV/OPV) 2005-02-27 00:00:00 Completed [facility] DTAP 2005-02-27 00:00:00 Completed [facility] HIB 4 Dose Schedule 2005-02-27 00:00:00 Completed [facility] Hep B, Adol or Pedi Dosage 2005-02-27 00:00:00 Completed [facility] Pneumococcal 13 Conjugate, PCV13 (Prevnar 13) 2005-02-27 00:00:00 Completed [facility] Polio (IPV/OPV) 2005-02-27 00:00:00 Completed [facility] DTAP 2005-02-27 00:00:00 Completed [facility] HIB 4 Dose Schedule 2005-02-27 00:00:00 Completed [facility] Hep B, Adol or Pedi Dosage 2005-02-27 00:00:00 Completed [facility] Pneumococcal 13 Conjugate, PCV13 (Prevnar 13) 2005-02-27 00:00:00 Completed [facility] Polio (IPV/OPV) 2005-02-27 00:00:00 Completed [facility] DTAP 2005-02-27 00:00:00 Completed [facility] HIB 4 Dose Schedule 2005-02-27 00:00:00 Completed [facility] Hep B, Adol or Pedi Dosage 2005-02-27 00:00:00 Completed [facility] Pneumococcal 13 Conjugate, PCV13 (Prevnar 13) 2005-02-27 00:00:00 Completed [facility] Polio (IPV/OPV) 2005-02-27 00:00:00 Completed [facility] DTAP 2005-02-27 00:00:00 Completed [facility] HIB 4 Dose Schedule 2005-02-27 00:00:00 Completed [facility] Hep B, Adol or Pedi Dosage 2005-02-27 00:00:00 Completed [facility] Pneumococcal 13 Conjugate, PCV13 (Prevnar 13) 2005-02-27 00:00:00 Completed [facility] Polio (IPV/OPV) 2005-02-27 00:00:00 Completed [facility] DTAP 2005-02-27 00:00:00 Completed [facility] HIB 4 Dose Schedule 2005-02-27 00:00:00 Completed [facility] Hep B, Adol or Pedi Dosage 2005-02-27 00:00:00 Completed [facility] Pneumococcal 13 Conjugate, PCV13 (Prevnar 13) 2005-02-27 00:00:00 Completed [facility] Polio (IPV/OPV) 2005-02-27 00:00:00 Completed [facility] DTAP 2005-02-27 00:00:00 Completed [facility] HIB 4 Dose Schedule 2005-02-27 00:00:00 Completed [facility] Hep B, Adol or Pedi Dosage 2005-02-27 00:00:00 Completed [facility] Pneumococcal 13 Conjugate, PCV13 (Prevnar 13) 2005-02-27 00:00:00 Completed [facility] Polio (IPV/OPV) 2005-02-27 00:00:00 Completed [facility] DTAP 2005-02-27 00:00:00 Completed [facility] HIB 4 Dose Schedule 2005-02-27 00:00:00 Completed [facility] Hep B, Adol or Pedi Dosage 2005-02-27 00:00:00 Completed [facility] Pneumococcal 13 Conjugate, PCV13 (Prevnar 13) 2005-02-27 00:00:00 Completed [facility] Polio (IPV/OPV) 2005-02-27 00:00:00 Completed [facility] DTAP 2005-02-27 00:00:00 Completed [facility] HIB 4 Dose Schedule 2005-02-27 00:00:00 Completed [facility] Hep B, Adol or Pedi Dosage 2005-02-27 00:00:00 Completed [facility] Pneumococcal 13 Conjugate, PCV13 (Prevnar 13) 2005-02-27 00:00:00 Completed [facility] Polio (IPV/OPV) 2005-02-27 00:00:00 Completed [facility] DTAP 2005-02-27 00:00:00 Completed [facility] HIB 4 Dose Schedule 2005-02-27 00:00:00 Completed [facility] Hep B, Adol or Pedi Dosage 2005-02-27 00:00:00 Completed [facility] Pneumococcal 13 Conjugate, PCV13 (Prevnar 13) 2005-02-27 00:00:00 Completed [facility] Polio (IPV/OPV) 2005-02-27 00:00:00 Completed [facility] DTAP 2005-02-27 00:00:00 Completed [facility] HIB 4 Dose Schedule 2005-02-27 00:00:00 Completed [facility] Hep B, Adol or Pedi Dosage 2005-02-27 00:00:00 Completed [facility] Pneumococcal 13 Conjugate, PCV13 (Prevnar 13) 2005-02-27 00:00:00 Completed [facility] Polio (IPV/OPV) 2005-02-27 00:00:00 Completed [facility] DTAP 2005-02-27 00:00:00 Completed [facility] HIB 4 Dose Schedule 2005-02-27 00:00:00 Completed [facility] Hep B, Adol or Pedi Dosage 2005-02-27 00:00:00 Completed [facility] Pneumococcal 13 Conjugate, PCV13 (Prevnar 13) 2005-02-27 00:00:00 Completed [facility] Polio (IPV/OPV) 2005-02-27 00:00:00 Completed [facility] DTAP 2005-02-27 00:00:00 Completed [facility] HIB 4 Dose Schedule 2005-02-27 00:00:00 Completed [facility] Hep B, Adol or Pedi Dosage 2005-02-27 00:00:00 Completed [facility] Pneumococcal 13 Conjugate, PCV13 (Prevnar 13) 2005-02-27 00:00:00 Completed [facility] Polio (IPV/OPV) 2005-02-27 00:00:00 Completed [facility] DTAP 2005-02-27 00:00:00 Completed [facility] HIB 4 Dose Schedule 2005-02-27 00:00:00 Completed [facility] Hep B, Adol or Pedi Dosage 2005-02-27 00:00:00 Completed [facility] Pneumococcal 13 Conjugate, PCV13 (Prevnar 13) 2005-02-27 00:00:00 Completed [facility] Polio (IPV/OPV) 2005-02-27 00:00:00 Completed [facility] DTAP 2005-02-27 00:00:00 Completed [facility] HIB 4 Dose Schedule 2005-02-27 00:00:00 Completed [facility] Hep B, Adol or Pedi Dosage 2005-02-27 00:00:00 Completed [facility] Pneumococcal 13 Conjugate, PCV13 (Prevnar 13) 2005-02-27 00:00:00 Completed [facility] Polio (IPV/OPV) 2005-02-27 00:00:00 Completed [facility] DTAP 2005-02-27 00:00:00 Completed [facility] HIB 4 Dose Schedule 2005-02-27 00:00:00 Completed [facility] Hep B, Adol or Pedi Dosage 2005-02-27 00:00:00 Completed [facility] Pneumococcal 13 Conjugate, PCV13 (Prevnar 13) 2005-02-27 00:00:00 Completed [facility] Polio (IPV/OPV) 2005-02-27 00:00:00 Completed [facility] DTAP 2005-02-27 00:00:00 Completed [facility] HIB 4 Dose Schedule 2005-02-27 00:00:00 Completed [facility] Hep B, Adol or Pedi Dosage 2005-02-27 00:00:00 Completed [facility] Pneumococcal 13 Conjugate, PCV13 (Prevnar 13) 2005-02-27 00:00:00 Completed [facility] Polio (IPV/OPV) 2005-02-27 00:00:00 Completed [facility] DTAP 2005-02-27 00:00:00 Completed [facility] HIB 4 Dose Schedule 2005-02-27 00:00:00 Completed [facility] Hep B, Adol or Pedi Dosage 2005-02-27 00:00:00 Completed [facility] Pneumococcal 13 Conjugate, PCV13 (Prevnar 13) 2005-02-27 00:00:00 Completed [facility] Polio (IPV/OPV) 2005-02-27 00:00:00 Completed [facility] DTAP 2005-02-27 00:00:00 Completed [facility] HIB 4 Dose Schedule 2005-02-27 00:00:00 Completed [facility] Hep B, Adol or Pedi Dosage 2005-02-27 00:00:00 Completed [facility] Pneumococcal 13 Conjugate, PCV13 (Prevnar 13) 2005-02-27 00:00:00 Completed [facility] Polio (IPV/OPV) 2005-02-27 00:00:00 Completed [facility] DTAP 2005-02-27 00:00:00 Completed [facility] HIB 4 Dose Schedule 2005-02-27 00:00:00 Completed [facility] Hep B, Adol or Pedi Dosage 2005-02-27 00:00:00 Completed [facility] Pneumococcal 13 Conjugate, PCV13 (Prevnar 13) 2005-02-27 00:00:00 Completed [facility] Polio (IPV/OPV) 2005-02-27 00:00:00 Completed [facility] DTAP 2005-02-27 00:00:00 Completed [facility] HIB 4 Dose Schedule 2005-02-27 00:00:00 Completed [facility] Hep B, Adol or Pedi Dosage 2005-02-27 00:00:00 Completed [facility] Pneumococcal 13 Conjugate, PCV13 (Prevnar 13) 2005-02-27 00:00:00 Completed [facility] Polio (IPV/OPV) 2005-02-27 00:00:00 Completed [facility] DTAP 2005-02-27 00:00:00 Completed [facility] HIB 4 Dose Schedule 2005-02-27 00:00:00 Completed [facility] Hep B, Adol or Pedi Dosage 2005-02-27 00:00:00 Completed [facility] Pneumococcal 13 Conjugate, PCV13 (Prevnar 13) 2005-02-27 00:00:00 Completed [facility] Polio (IPV/OPV) 2005-02-27 00:00:00 Completed [facility] DTAP 2005-02-27 00:00:00 Completed [facility] HIB 4 Dose Schedule 2005-02-27 00:00:00 Completed [facility] Hep B, Adol or Pedi Dosage 2005-02-27 00:00:00 Completed [facility] Pneumococcal 13 Conjugate, PCV13 (Prevnar 13) 2005-02-27 00:00:00 Completed [facility] Polio (IPV/OPV) 2005-02-27 00:00:00 Completed [facility] DTAP 2005-02-27 00:00:00 Completed [facility] HIB 4 Dose Schedule 2005-02-27 00:00:00 Completed [facility] Hep B, Adol or Pedi Dosage 2005-02-27 00:00:00 Completed [facility] Pneumococcal 13 Conjugate, PCV13 (Prevnar 13) 2005-02-27 00:00:00 Completed [facility] Polio (IPV/OPV) 2005-02-27 00:00:00 Completed [facility] DTAP 2005-02-27 00:00:00 Completed [facility] HIB 4 Dose Schedule 2005-02-27 00:00:00 Completed [facility] Hep B, Adol or Pedi Dosage 2005-02-27 00:00:00 Completed [facility] Pneumococcal 13 Conjugate, PCV13 (Prevnar 13) 2005-02-27 00:00:00 Completed [facility] Polio (IPV/OPV) 2005-02-27 00:00:00 Completed [facility] DTAP 2005-02-27 00:00:00 Completed [facility] HIB 4 Dose Schedule 2005-02-27 00:00:00 Completed [facility] Hep B, Adol or Pedi Dosage 2005-02-27 00:00:00 Completed [facility] Pneumococcal 13 Conjugate, PCV13 (Prevnar 13) 2005-02-27 00:00:00 Completed [facility] Polio (IPV/OPV) 2005-02-27 00:00:00 Completed [facility] DTAP 2005-02-27 00:00:00 Completed [facility] HIB 4 Dose Schedule 2005-02-27 00:00:00 Completed [facility] Hep B, Adol or Pedi Dosage 2005-02-27 00:00:00 Completed [facility] Pneumococcal 13 Conjugate, PCV13 (Prevnar 13) 2005-02-27 00:00:00 Completed [facility] Polio (IPV/OPV) 2005-02-27 00:00:00 Completed [facility] DTAP 2005-02-27 00:00:00 Completed [facility] HIB 4 Dose Schedule 2005-02-27 00:00:00 Completed [facility] Hep B, Adol or Pedi Dosage 2005-02-27 00:00:00 Completed [facility] Pneumococcal 13 Conjugate, PCV13 (Prevnar 13) 2005-02-27 00:00:00 Completed [facility] Polio (IPV/OPV) 2005-02-27 00:00:00 Completed [facility] DTAP 2005-02-27 00:00:00 Completed [facility] HIB 4 Dose Schedule 2005-02-27 00:00:00 Completed [facility] Hep B, Adol or Pedi Dosage 2005-02-27 00:00:00 Completed [facility] Pneumococcal 13 Conjugate, PCV13 (Prevnar 13) 2005-02-27 00:00:00 Completed [facility] Polio (IPV/OPV) 2005-02-27 00:00:00 Completed [facility] DTAP 2005-02-27 00:00:00 Completed [facility] HIB 4 Dose Schedule 2005-02-27 00:00:00 Completed [facility] Hep B, Adol or Pedi Dosage 2005-02-27 00:00:00 Completed [facility] Pneumococcal 13 Conjugate, PCV13 (Prevnar 13) 2005-02-27 00:00:00 Completed [facility] Polio (IPV/OPV) 2005-02-27 00:00:00 Completed [facility] DTAP 2005-02-27 00:00:00 Completed HIB 4 Dose Schedule 2004 00:00:00 Completed Hep B, Adol or Pedi Dosage 2004 00:00:00 Completed Pneumococcal 13 Conjugate, PCV13 (Prevnar 13) 2004 00:00:00 Completed Polio (IPV/OPV) 2004 00:00:00 Completed DTAP 2004 00:00:00 Completed [facility] HIB 4 Dose Schedule 2004 00:00:00 Completed [facility] Hep B, Adol or Pedi Dosage 2004 00:00:00 Completed [facility] Pneumococcal 13 Conjugate, PCV13 (Prevnar 13) 2004 00:00:00 Completed [facility] Polio (IPV/OPV) 2004 00:00:00 Completed [facility] DTAP 2004 00:00:00 Completed [facility] HIB 4 Dose Schedule 2004 00:00:00 Completed [facility] Hep B, Adol or Pedi Dosage 2004 00:00:00 Completed [facility] Pneumococcal 13 Conjugate, PCV13 (Prevnar 13) 2004 00:00:00 Completed [facility] Polio (IPV/OPV) 2004 00:00:00 Completed [facility] DTAP 2004 00:00:00 Completed [facility] HIB 4 Dose Schedule 2004 00:00:00 Completed [facility] Hep B, Adol or Pedi Dosage 2004 00:00:00 Completed [facility] Pneumococcal 13 Conjugate, PCV13 (Prevnar 13) 2004 00:00:00 Completed [facility] Polio (IPV/OPV) 2004 00:00:00 Completed [facility] DTAP 2004 00:00:00 Completed [facility] HIB 4 Dose Schedule 2004 00:00:00 Completed [facility] Hep B, Adol or Pedi Dosage 2004 00:00:00 Completed [facility] Pneumococcal 13 Conjugate, PCV13 (Prevnar 13) 2004 00:00:00 Completed [facility] Polio (IPV/OPV) 2004 00:00:00 Completed [facility] DTAP 2004 00:00:00 Completed [facility] HIB 4 Dose Schedule 2004 00:00:00 Completed [facility] Hep B, Adol or Pedi Dosage 2004 00:00:00 Completed [facility] Pneumococcal 13 Conjugate, PCV13 (Prevnar 13) 2004 00:00:00 Completed [facility] Polio (IPV/OPV) 2004 00:00:00 Completed [facility] DTAP 2004 00:00:00 Completed [facility] HIB 4 Dose Schedule 2004 00:00:00 Completed [facility] Hep B, Adol or Pedi Dosage 2004 00:00:00 Completed [facility] Pneumococcal 13 Conjugate, PCV13 (Prevnar 13) 2004 00:00:00 Completed [facility] Polio (IPV/OPV) 2004 00:00:00 Completed [facility] DTAP 2004 00:00:00 Completed [facility] HIB 4 Dose Schedule 2004 00:00:00 Completed [facility] Hep B, Adol or Pedi Dosage 2004 00:00:00 Completed [facility] Pneumococcal 13 Conjugate, PCV13 (Prevnar 13) 2004 00:00:00 Completed [facility] Polio (IPV/OPV) 2004 00:00:00 Completed [facility] DTAP 2004 00:00:00 Completed [facility] HIB 4 Dose Schedule 2004 00:00:00 Completed [facility] Hep B, Adol or Pedi Dosage 2004 00:00:00 Completed [facility] Pneumococcal 13 Conjugate, PCV13 (Prevnar 13) 2004 00:00:00 Completed [facility] Polio (IPV/OPV) 2004 00:00:00 Completed [facility] DTAP 2004 00:00:00 Completed [facility] HIB 4 Dose Schedule 2004 00:00:00 Completed [facility] Hep B, Adol or Pedi Dosage 2004 00:00:00 Completed [facility] Pneumococcal 13 Conjugate, PCV13 (Prevnar 13) 2004 00:00:00 Completed [facility] Polio (IPV/OPV) 2004 00:00:00 Completed [facility] DTAP 2004 00:00:00 Completed [facility] HIB 4 Dose Schedule 2004 00:00:00 Completed [facility] Hep B, Adol or Pedi Dosage 2004 00:00:00 Completed [facility] Pneumococcal 13 Conjugate, PCV13 (Prevnar 13) 2004 00:00:00 Completed [facility] Polio (IPV/OPV) 2004 00:00:00 Completed [facility] DTAP 2004 00:00:00 Completed [facility] HIB 4 Dose Schedule 2004 00:00:00 Completed [facility] Hep B, Adol or Pedi Dosage 2004 00:00:00 Completed [facility] Pneumococcal 13 Conjugate, PCV13 (Prevnar 13) 2004 00:00:00 Completed [facility] Polio (IPV/OPV) 2004 00:00:00 Completed [facility] DTAP 2004 00:00:00 Completed [facility] HIB 4 Dose Schedule 2004 00:00:00 Completed [facility] Hep B, Adol or Pedi Dosage 2004 00:00:00 Completed [facility] Pneumococcal 13 Conjugate, PCV13 (Prevnar 13) 2004 00:00:00 Completed [facility] Polio (IPV/OPV) 2004 00:00:00 Completed [facility] DTAP 2004 00:00:00 Completed [facility] HIB 4 Dose Schedule 2004 00:00:00 Completed [facility] Hep B, Adol or Pedi Dosage 2004 00:00:00 Completed [facility] Pneumococcal 13 Conjugate, PCV13 (Prevnar 13) 2004 00:00:00 Completed [facility] Polio (IPV/OPV) 2004 00:00:00 Completed [facility] DTAP 2004 00:00:00 Completed [facility] HIB 4 Dose Schedule 2004 00:00:00 Completed [facility] Hep B, Adol or Pedi Dosage 2004 00:00:00 Completed [facility] Pneumococcal 13 Conjugate, PCV13 (Prevnar 13) 2004 00:00:00 Completed [facility] Polio (IPV/OPV) 2004 00:00:00 Completed [facility] DTAP 2004 00:00:00 Completed [facility] HIB 4 Dose Schedule 2004 00:00:00 Completed [facility] Hep B, Adol or Pedi Dosage 2004 00:00:00 Completed [facility] Pneumococcal 13 Conjugate, PCV13 (Prevnar 13) 2004 00:00:00 Completed [facility] Polio (IPV/OPV) 2004 00:00:00 Completed [facility] DTAP 2004 00:00:00 Completed [facility] HIB 4 Dose Schedule 2004 00:00:00 Completed [facility] Hep B, Adol or Pedi Dosage 2004 00:00:00 Completed [facility] Pneumococcal 13 Conjugate, PCV13 (Prevnar 13) 2004 00:00:00 Completed [facility] Polio (IPV/OPV) 2004 00:00:00 Completed [facility] DTAP 2004 00:00:00 Completed [facility] HIB 4 Dose Schedule 2004 00:00:00 Completed [facility] Hep B, Adol or Pedi Dosage 2004 00:00:00 Completed [facility] Pneumococcal 13 Conjugate, PCV13 (Prevnar 13) 2004 00:00:00 Completed [facility] Polio (IPV/OPV) 2004 00:00:00 Completed [facility] DTAP 2004 00:00:00 Completed [facility] HIB 4 Dose Schedule 2004 00:00:00 Completed [facility] Hep B, Adol or Pedi Dosage 2004 00:00:00 Completed [facility] Pneumococcal 13 Conjugate, PCV13 (Prevnar 13) 2004 00:00:00 Completed [facility] Polio (IPV/OPV) 2004 00:00:00 Completed [facility] DTAP 2004 00:00:00 Completed [facility] HIB 4 Dose Schedule 2004 00:00:00 Completed [facility] Hep B, Adol or Pedi Dosage 2004 00:00:00 Completed [facility] Pneumococcal 13 Conjugate, PCV13 (Prevnar 13) 2004 00:00:00 Completed [facility] Polio (IPV/OPV) 2004 00:00:00 Completed [facility] DTAP 2004 00:00:00 Completed [facility] HIB 4 Dose Schedule 2004 00:00:00 Completed [facility] Hep B, Adol or Pedi Dosage 2004 00:00:00 Completed [facility] Pneumococcal 13 Conjugate, PCV13 (Prevnar 13) 2004 00:00:00 Completed [facility] Polio (IPV/OPV) 2004 00:00:00 Completed [facility] DTAP 2004 00:00:00 Completed [facility] HIB 4 Dose Schedule 2004 00:00:00 Completed [facility] Hep B, Adol or Pedi Dosage 2004 00:00:00 Completed [facility] Pneumococcal 13 Conjugate, PCV13 (Prevnar 13) 2004 00:00:00 Completed [facility] Polio (IPV/OPV) 2004 00:00:00 Completed [facility] DTAP 2004 00:00:00 Com[facility] HIB 4 Dose Schedule 2004 00:00:00 Completed [facility] Hep B, Adol or Pedi Dosage 2004 00:00:00 Completed [facility] Pneumococcal 13 Conjugate, PCV13 (Prevnar 13) 2004 00:00:00 Completed [facility] Polio (IPV/OPV) 2004 00:00:00 Completed [facility] DTAP 2004 00:00:00 Completed [facility] HIB 4 Dose Schedule 2004 00:00:00 Completed [facility] Hep B, Adol or Pedi Dosage 2004 00:00:00 Completed [facility] Pneumococcal 13 Conjugate, PCV13 (Prevnar 13) 2004 00:00:00 Completed [facility] Polio (IPV/OPV) 2004 00:00:00 Completed [facility] DTAP 2004 00:00:00 Completed [facility] HIB 4 Dose Schedule 2004 00:00:00 Completed [facility] Hep B, Adol or Pedi Dosage 2004 00:00:00 Completed [facility] Pneumococcal 13 Conjugate, PCV13 (Prevnar 13) 2004 00:00:00 Completed [facility] Polio (IPV/OPV) 2004 00:00:00 Completed [facility] DTAP 2004 00:00:00 Completed [facility] HIB 4 Dose Schedule 2004 00:00:00 Completed [facility] Hep B, Adol or Pedi Dosage 2004 00:00:00 Completed [facility] Pneumococcal 13 Conjugate, PCV13 (Prevnar 13) 2004 00:00:00 Completed [facility] Polio (IPV/OPV) 2004 00:00:00 Completed [facility] DTAP 2004 00:00:00 Completed [facility] HIB 4 Dose Schedule 2004 00:00:00 Completed [facility] Hep B, Adol or Pedi Dosage 2004 00:00:00 Completed [facility] Pneumococcal 13 Conjugate, PCV13 (Prevnar 13) 2004 00:00:00 Completed [facility] Polio (IPV/OPV) 2004 00:00:00 Completed [facility] DTAP 2004 00:00:00 Completed [facility] HIB 4 Dose Schedule 2004 00:00:00 Completed [facility] Hep B, Adol or Pedi Dosage 2004 00:00:00 Completed [facility] Pneumococcal 13 Conjugate, PCV13 (Prevnar 13) 2004 00:00:00 Completed [facility] Polio (IPV/OPV) 2004 00:00:00 Completed [facility] DTAP 2004 00:00:00 Completed [facility] HIB 4 Dose Schedule 2004 00:00:00 Completed [facility] Hep B, Adol or Pedi Dosage 2004 00:00:00 Completed [facility] Pneumococcal 13 Conjugate, PCV13 (Prevnar 13) 2004 00:00:00 Completed [facility] Polio (IPV/OPV) 2004 00:00:00 Completed [facility] DTAP 2004 00:00:00 Completed [facility] HIB 4 Dose Schedule 2004 00:00:00 Completed [facility] Hep B, Adol or Pedi Dosage 2004 00:00:00 Completed [facility] Pneumococcal 13 Conjugate, PCV13 (Prevnar 13) 2004 00:00:00 Completed [facility] Polio (IPV/OPV) 2004 00:00:00 Completed [facility] DTAP 2004 00:00:00 Completed [facility] HIB 4 Dose Schedule 2004 00:00:00 Completed [facility] Hep B, Adol or Pedi Dosage 2004 00:00:00 Completed [facility] Pneumococcal 13 Conjugate, PCV13 (Prevnar 13) 2004 00:00:00 Completed [facility] Polio (IPV/OPV) 2004 00:00:00 Completed [facility] DTAP 2004 00:00:00 Completed [facility] HIB 4 Dose Schedule 2004 00:00:00 Completed [facility] Hep B, Adol or Pedi Dosage 2004 00:00:00 Completed [facility] Pneumococcal 13 Conjugate, PCV13 (Prevnar 13) 2004 00:00:00 Completed [facility] Polio (IPV/OPV) 2004 00:00:00 Completed [facility] DTAP 2004 00:00:00 Completed [facility] HIB 4 Dose Schedule 2004 00:00:00 Completed [facility] Hep B, Adol or Pedi Dosage 2004 00:00:00 Completed [facility] Pneumococcal 13 Conjugate, PCV13 (Prevnar 13) 2004 00:00:00 Completed [facility] Polio (IPV/OPV) 2004 00:00:00 Completed [facility] DTAP 2004 00:00:00 Completed [facility] HIB 4 Dose Schedule 2004 00:00:00 Completed [facility] Hep B, Adol or Pedi Dosage 2004 00:00:00 Completed [facility] Pneumococcal 13 Conjugate, PCV13 (Prevnar 13) 2004 00:00:00 Completed [facility] Polio (IPV/OPV) 2004 00:00:00 Completed [facility] DTAP 2004 00:00:00 Completed HIB 4 Dose Schedule 2004 00:00:00 Completed Hep B, Adol or Pedi Dosage 2004 00:00:00 Completed Pneumococcal 13 Conjugate, PCV13 (Prevnar 13) 2004 00:00:00 Completed Polio (IPV/OPV) 2004 00:00:00 Completed DTAP 2004 00:00:00 Completed [facility] HIB 4 Dose Schedule 2004 00:00:00 Completed [facility] Hep B, Adol or Pedi Dosage 2004 00:00:00 Completed [facility] Pneumococcal 13 Conjugate, PCV13 (Prevnar 13) 2004 00:00:00 Completed [facility] Polio (IPV/OPV) 2004 00:00:00 Completed [facility] DTAP 2004 00:00:00 Completed [facility] HIB 4 Dose Schedule 2004 00:00:00 Completed [facility] Hep B, Adol or Pedi Dosage 2004 00:00:00 Completed [facility] Pneumococcal 13 Conjugate, PCV13 (Prevnar 13) 2004 00:00:00 Completed [facility] Polio (IPV/OPV) 2004 00:00:00 Completed [facility] DTAP 2004 00:00:00 Completed [facility] HIB 4 Dose Schedule 2004 00:00:00 Completed [facility] Hep B, Adol or Pedi Dosage 2004 00:00:00 Completed [facility] Pneumococcal 13 Conjugate, PCV13 (Prevnar 13) 2004 00:00:00 Completed [facility] Polio (IPV/OPV) 2004 00:00:00 Completed [facility] DTAP 2004 00:00:00 Completed [facility] HIB 4 Dose Schedule 2004 00:00:00 Completed [facility] Hep B, Adol or Pedi Dosage 2004 00:00:00 Completed [facility] Pneumococcal 13 Conjugate, PCV13 (Prevnar 13) 2004 00:00:00 Completed [facility] Polio (IPV/OPV) 2004 00:00:00 Completed [facility] DTAP 2004 00:00:00 Completed [facility] HIB 4 Dose Schedule 2004 00:00:00 Completed [facility] Hep B, Adol or Pedi Dosage 2004 00:00:00 Completed [facility] Pneumococcal 13 Conjugate, PCV13 (Prevnar 13) 2004 00:00:00 Completed [facility] Polio (IPV/OPV) 2004 00:00:00 Completed [facility] DTAP 2004 00:00:00 Completed [facility] HIB 4 Dose Schedule 2004 00:00:00 Completed [facility] Hep B, Adol or Pedi Dosage 2004 00:00:00 Completed [facility] Pneumococcal 13 Conjugate, PCV13 (Prevnar 13) 2004 00:00:00 Completed [facility] Polio (IPV/OPV) 2004 00:00:00 Completed [facility] DTAP 2004 00:00:00 Completed [facility] HIB 4 Dose Schedule 2004 00:00:00 Completed [facility] Hep B, Adol or Pedi Dosage 2004 00:00:00 Completed [facility] Pneumococcal 13 Conjugate, PCV13 (Prevnar 13) 2004 00:00:00 Completed [facility] Polio (IPV/OPV) 2004 00:00:00 Completed [facility] DTAP 2004 00:00:00 Completed [facility] HIB 4 Dose Schedule 2004 00:00:00 Completed [facility] Hep B, Adol or Pedi Dosage 2004 00:00:00 Completed [facility] Pneumococcal 13 Conjugate, PCV13 (Prevnar 13) 2004 00:00:00 Completed [facility] Polio (IPV/OPV) 2004 00:00:00 Completed [facility] DTAP 2004 00:00:00 Completed [facility] HIB 4 Dose Schedule 2004 00:00:00 Completed [facility] Hep B, Adol or Pedi Dosage 2004 00:00:00 Completed [facility] Pneumococcal 13 Conjugate, PCV13 (Prevnar 13) 2004 00:00:00 Completed [facility] Polio (IPV/OPV) 2004 00:00:00 Completed [facility] DTAP 2004 00:00:00 Completed [facility] HIB 4 Dose Schedule 2004 00:00:00 Completed [facility] Hep B, Adol or Pedi Dosage 2004 00:00:00 Completed [facility] Pneumococcal 13 Conjugate, PCV13 (Prevnar 13) 2004 00:00:00 Completed [facility] Polio (IPV/OPV) 2004 00:00:00 Completed [facility] DTAP 2004 00:00:00 Completed [facility] HIB 4 Dose Schedule 2004 00:00:00 Completed [facility] Hep B, Adol or Pedi Dosage 2004 00:00:00 Completed [facility] Pneumococcal 13 Conjugate, PCV13 (Prevnar 13) 2004 00:00:00 Completed [facility] Polio (IPV/OPV) 2004 00:00:00 Completed [facility] DTAP 2004 00:00:00 Completed [facility] HIB 4 Dose Schedule 2004 00:00:00 Completed [facility] Hep B, Adol or Pedi Dosage 2004 00:00:00 Completed [facility] Pneumococcal 13 Conjugate, PCV13 (Prevnar 13) 2004 00:00:00 Completed [facility] Polio (IPV/OPV) 2004 00:00:00 Completed [facility] DTAP 2004 00:00:00 Completed [facility] HIB 4 Dose Schedule 2004 00:00:00 Completed [facility] Hep B, Adol or Pedi Dosage 2004 00:00:00 Completed [facility] Pneumococcal 13 Conjugate, PCV13 (Prevnar 13) 2004 00:00:00 Completed [facility] Polio (IPV/OPV) 2004 00:00:00 Completed [facility] DTAP 2004 00:00:00 Completed [facility] HIB 4 Dose Schedule 2004 00:00:00 Completed [facility] Hep B, Adol or Pedi Dosage 2004 00:00:00 Completed [facility] Pneumococcal 13 Conjugate, PCV13 (Prevnar 13) 2004 00:00:00 Completed [facility] Polio (IPV/OPV) 2004 00:00:00 Completed [facility] DTAP 2004 00:00:00 Completed [facility] HIB 4 Dose Schedule 2004 00:00:00 Completed [facility] Hep B, Adol or Pedi Dosage 2004 00:00:00 Completed [facility] Pneumococcal 13 Conjugate, PCV13 (Prevnar 13) 2004 00:00:00 Completed [facility] Polio (IPV/OPV) 2004 00:00:00 Completed [facility] DTAP 2004 00:00:00 Completed [facility] HIB 4 Dose Schedule 2004 00:00:00 Completed [facility] Hep B, Adol or Pedi Dosage 2004 00:00:00 Completed [facility] Pneumococcal 13 Conjugate, PCV13 (Prevnar 13) 2004 00:00:00 Completed [facility] Polio (IPV/OPV) 2004 00:00:00 Completed [facility] DTAP 2004 00:00:00 Completed [facility] HIB 4 Dose Schedule 2004 00:00:00 Completed [facility] Hep B, Adol or Pedi Dosage 2004 00:00:00 Completed [facility] Pneumococcal 13 Conjugate, PCV13 (Prevnar 13) 2004 00:00:00 Completed [facility] Polio (IPV/OPV) 2004 00:00:00 Completed [facility] DTAP 2004 00:00:00 Completed [facility] HIB 4 Dose Schedule 2004 00:00:00 Completed [facility] Hep B, Adol or Pedi Dosage 2004 00:00:00 Completed [facility] Pneumococcal 13 Conjugate, PCV13 (Prevnar 13) 2004 00:00:00 Completed [facility] Polio (IPV/OPV) 2004 00:00:00 Completed [facility] DTAP 2004 00:00:00 Completed [facility] HIB 4 Dose Schedule 2004 00:00:00 Completed [facility] Hep B, Adol or Pedi Dosage 2004 00:00:00 Completed [facility] Pneumococcal 13 Conjugate, PCV13 (Prevnar 13) 2004 00:00:00 Completed [facility] Polio (IPV/OPV) 2004 00:00:00 Completed [facility] DTAP 2004 00:00:00 Completed [facility] HIB 4 Dose Schedule 2004 00:00:00 Completed [facility] Hep B, Adol or Pedi Dosage 2004 00:00:00 Completed [facility] Pneumococcal 13 Conjugate, PCV13 (Prevnar 13) 2004 00:00:00 Completed [facility] Polio (IPV/OPV) 2004 00:00:00 Completed [facility] DTAP 2004 00:00:00 Completed [facility] HIB 4 Dose Schedule 2004 00:00:00 Completed [facility] Hep B, Adol or Pedi Dosage 2004 00:00:00 Completed [facility] Pneumococcal 13 Conjugate, PCV13 (Prevnar 13) 2004 00:00:00 Completed [facility] Polio (IPV/OPV) 2004 00:00:00 Completed [facility] DTAP 2004 00:00:00 Completed [facility] HIB 4 Dose Schedule 2004 00:00:00 Completed [facility] Hep B, Adol or Pedi Dosage 2004 00:00:00 Completed [facility] Pneumococcal 13 Conjugate, PCV13 (Prevnar 13) 2004 00:00:00 Completed [facility] Polio (IPV/OPV) 2004 00:00:00 Completed [facility] DTAP 2004 00:00:00 Completed [facility] HIB 4 Dose Schedule 2004 00:00:00 Completed [facility] Hep B, Adol or Pedi Dosage 2004 00:00:00 Completed [facility] Pneumococcal 13 Conjugate, PCV13 (Prevnar 13) 2004 00:00:00 Completed [facility] Polio (IPV/OPV) 2004 00:00:00 Completed [facility] DTAP 2004 00:00:00 Completed [facility] HIB 4 Dose Schedule 2004 00:00:00 Completed [facility] Hep B, Adol or Pedi Dosage 2004 00:00:00 Completed [facility] Pneumococcal 13 Conjugate, PCV13 (Prevnar 13) 2004 00:00:00 Completed [facility] Polio (IPV/OPV) 2004 00:00:00 Completed [facility] DTAP 2004 00:00:00 Completed [facility] HIB 4 Dose Schedule 2004 00:00:00 Completed [facility] Hep B, Adol or Pedi Dosage 2004 00:00:00 Completed [facility] Pneumococcal 13 Conjugate, PCV13 (Prevnar 13) 2004 00:00:00 Completed [facility] Polio (IPV/OPV) 2004 00:00:00 Completed [facility] DTAP 2004 00:00:00 Completed [facility] HIB 4 Dose Schedule 2004 00:00:00 Completed [facility] Hep B, Adol or Pedi Dosage 2004 00:00:00 Completed [facility] Pneumococcal 13 Conjugate, PCV13 (Prevnar 13) 2004 00:00:00 Completed [facility] Polio (IPV/OPV) 2004 00:00:00 Completed [facility] DTAP 2004 00:00:00 Completed [facility] HIB 4 Dose Schedule 2004 00:00:00 Completed [facility] Hep B, Adol or Pedi Dosage 2004 00:00:00 Completed [facility] Pneumococcal 13 Conjugate, PCV13 (Prevnar 13) 2004 00:00:00 Completed [facility] Polio (IPV/OPV) 2004 00:00:00 Completed [facility] DTAP 2004 00:00:00 Completed [facility] HIB 4 Dose Schedule 2004 00:00:00 Completed [facility] Hep B, Adol or Pedi Dosage 2004 00:00:00 Completed [facility] Pneumococcal 13 Conjugate, PCV13 (Prevnar 13) 2004 00:00:00 Completed [facility] Polio (IPV/OPV) 2004 00:00:00 Completed [facility] DTAP 2004 00:00:00 Completed [facility] HIB 4 Dose Schedule 2004 00:00:00 Completed [facility] Hep B, Adol or Pedi Dosage 2004 00:00:00 Completed [facility] Pneumococcal 13 Conjugate, PCV13 (Prevnar 13) 2004 00:00:00 Completed [facility] Polio (IPV/OPV) 2004 00:00:00 Completed [facility] DTAP 2004 00:00:00 Completed [facility] HIB 4 Dose Schedule 2004 00:00:00 Completed [facility] Hep B, Adol or Pedi Dosage 2004 00:00:00 Completed [facility] Pneumococcal 13 Conjugate, PCV13 (Prevnar 13) 2004 00:00:00 Completed [facility] Polio (IPV/OPV) 2004 00:00:00 Completed [facility] DTAP 2004 00:00:00 Completed [facility] HIB 4 Dose Schedule 2004 00:00:00 Completed [facility] Hep B, Adol or Pedi Dosage 2004 00:00:00 Completed [facility] Pneumococcal 13 Conjugate, PCV13 (Prevnar 13) 2004 00:00:00 Completed [facility] Polio (IPV/OPV) 2004 00:00:00 Completed [facility] DTAP 2004 00:00:00 Completed [facility] HIB 4 Dose Schedule 2004 00:00:00 Completed [facility] Hep B, Adol or Pedi Dosage 2004 00:00:00 Completed [facility] Pneumococcal 13 Conjugate, PCV13 (Prevnar 13) 2004 00:00:00 Completed [facility] Polio (IPV/OPV) 2004 00:00:00 Completed [facility] DTAP 2004 00:00:00 Completed [facility] HIB 4 Dose Schedule 2004 00:00:00 Completed [facility] Hep B, Adol or Pedi Dosage 2004 00:00:00 Completed [facility] Pneumococcal 13 Conjugate, PCV13 (Prevnar 13) 2004 00:00:00 Completed [facility] Polio (IPV/OPV) 2004 00:00:00 Completed [facility] DTAP 2004 00:00:00 Completed [facility] Hep B, Adol or Pedi Dosage 2004 00:00:00 Completed Hep B, Adol or Pedi Dosage 2004 00:00:00 Completed [facility] Hep B, Adol or Pedi Dosage 2004 00:00:00 Completed [facility] Hep B, Adol or Pedi Dosage 2004 00:00:00 Completed [facility] Hep B, Adol or Pedi Dosage 2004 00:00:00 Completed [facility] Hep B, Adol or Pedi Dosage 2004 00:00:00 Completed [facility] Hep B, Adol or Pedi Dosage 2004 00:00:00 Completed [facility] Hep B, Adol or Pedi Dosage 2004 00:00:00 Completed [facility] Hep B, Adol or Pedi Dosage 2004 00:00:00 Completed [facility] Hep B, Adol or Pedi Dosage 2004 00:00:00 Completed [facility] Hep B, Adol or Pedi Dosage 2004 00:00:00 Completed [facility] Hep B, Adol or Pedi Dosage 2004 00:00:00 Completed [facility] Hep B, Adol or Pedi Dosage 2004 00:00:00 Completed [facility] Hep B, Adol or Pedi Dosage 2004 00:00:00 Completed [facility] Hep B, Adol or Pedi Dosage 2004 00:00:00 Completed [facility] Hep B, Adol or Pedi Dosage 2004 00:00:00 Completed [facility] Hep B, Adol or Pedi Dosage 2004 00:00:00 Completed [facility] Hep B, Adol or Pedi Dosage 2004 00:00:00 Completed [facility] Hep B, Adol or Pedi Dosage 2004 00:00:00 Completed [facility] Hep B, Adol or Pedi Dosage 2004 00:00:00 Completed [facility] Hep B, Adol or Pedi Dosage 2004 00:00:00 Completed [facility] Hep B, Adol or Pedi Dosage 2004 00:00:00 Completed [facility] Hep B, Adol or Pedi Dosage 2004 00:00:00 Completed [facility] Hep B, Adol or Pedi Dosage 2004 00:00:00 Completed [facility] Hep B, Adol or Pedi Dosage 2004 00:00:00 Completed [facility] Hep B, Adol or Pedi Dosage 2004 00:00:00 Completed [facility] Hep B, Adol or Pedi Dosage 2004 00:00:00 Completed [facility] Hep B, Adol or Pedi Dosage 2004 00:00:00 Completed [facility] Hep B, Adol or Pedi Dosage 2004 00:00:00 Completed [facility] Hep B, Adol or Pedi Dosage 2004 00:00:00 Completed [facility] Hep B, Adol or Pedi Dosage 2004 00:00:00 Completed [facility] Hep B, Adol or Pedi Dosage 2004 00:00:00 Completed [facility] Hep B, Adol or Pedi Dosage 2004 00:00:00 Completed [facility] Hep B, Adol or Pedi Dosage 2004 00:00:00 Completed [facility] Influenza Virus Vaccine Quad .5 mL IM 6+ MO (FLUZONE/FLULAVAL/FL UARIX) Unknown Completed [facility] DTAP Unknown Completed [facility] HIB 4 Dose Schedule Unknown Completed [facility] HEPATITIS A Unknown Completed [facility] Hep B, Adol or Pedi Dosage Unknown Completed [facility] Meningococcal Polysaccharide (groups A, C, Y and W-135) conjugate vaccine (MCV4P) Unknown Completed [facility] MMR Unknown Completed [facility] Pneumococcal 13 Conjugate, PCV13 (Prevnar 13) Unknown Completed [facility] Polio (IPV/OPV) Unknown Completed [facility] TDAP Unknown Completed [facility] Varicella (varivax)(chicken pox) Unknown Completed [facility] HPV9 Unknown Completed [facility] Pneumococcal Polysaccharide, PPSV23 (PNEUMOVAX) Unknown Completed [facility] Influenza Virus Vaccine Quad .5 mL IM 6+ MO (FLUZONE/FLULAVAL/FL UARIX) Unknown Completed [facility] DTAP Unknown Completed [facility] HIB 4 Dose Schedule Unknown Completed [facility] HEPATITIS A Unknown Completed [facility] Hep B, Adol or Pedi Dosage Unknown Completed [facility] Meningococcal Polysaccharide (groups A, C, Y and W-135) conjugate vaccine (MCV4P) Unknown Completed [facility] MMR Unknown Completed [facility] Pneumococcal 13 Conjugate, PCV13 (Prevnar 13) Unknown Completed [facility] Polio (IPV/OPV) Unknown Completed [facility] TDAP Unknown Completed [facility] Varicella (varivax)(chicken pox) Unknown Completed [facility] HPV9 Unknown Completed [facility] Pneumococcal Polysaccharide, PPSV23 (PNEUMOVAX) Unknown Completed [facility] Influenza Virus Vaccine Quad .5 mL IM 6+ MO (FLUZONE/FLULAVAL/FL UARIX) Unknown Completed [facility] DTAP Unknown Completed [facility] HIB 4 Dose Schedule Unknown Completed [facility] HEPATITIS A Unknown Completed [facility] Hep B, Adol or Pedi Dosage Unknown Completed [facility] Meningococcal Polysaccharide (groups A, C, Y and W-135) conjugate vaccine (MCV4P) Unknown Completed [facility] MMR Unknown Completed [facility] Pneumococcal 13 Conjugate, PCV13 (Prevnar 13) Unknown Completed [facility] Polio (IPV/OPV) Unknown Completed [facility] TDAP Unknown Completed [facility] Varicella (varivax)(chicken pox) Unknown Completed [facility] HPV9 Unknown Completed [facility] Pneumococcal Polysaccharide, PPSV23 (PNEUMOVAX) Unknown Completed [facility] Pneumococcal Polysaccharide, PPSV23 (PNEUMOVAX) Unknown Completed [facility] Influenza Virus Vaccine Quad .5 mL IM 6+ MO (FLUZONE/FLULAVAL/FL UARIX) Unknown Completed [facility] DTAP Unknown Completed [facility] HIB 4 Dose Schedule Unknown Completed [facility] HEPATITIS A Unknown Completed [facility] Hep B, Adol or Pedi Dosage Unknown Completed [facility] Meningococcal Polysaccharide (groups A, C, Y and W-135) conjugate vaccine (MCV4P) Unknown Completed [facility] MMR Unknown Completed [facility] Pneumococcal 13 Conjugate, PCV13 (Prevnar 13) Unknown Completed [facility] Polio (IPV/OPV) Unknown Completed [facility] TDAP Unknown Completed [facility] Varicella (varivax)(chicken pox) Unknown Completed [facility] HPV9 Unknown Completed [facility] Pneumococcal Polysaccharide, PPSV23 (PNEUMOVAX) Unknown Completed [facility] Influenza Virus Vaccine Quad .5 mL IM 6+ MO (FLUZONE/FLULAVAL/FL UARIX) Unknown Completed [facility] DTAP Unknown Completed [facility] HIB 4 Dose Schedule Unknown Completed [facility] HEPATITIS A Unknown Completed [facility] Hep B, Adol or Pedi Dosage Unknown Completed [facility] Meningococcal Polysaccharide (groups A, C, Y and W-135) conjugate vaccine (MCV4P) Unknown Completed [facility] MMR Unknown Completed [facility] Pneumococcal 13 Conjugate, PCV13 (Prevnar 13) Unknown Completed [facility] Polio (IPV/OPV) Unknown Completed [facility] TDAP Unknown Completed [facility] Varicella (varivax)(chicken pox) Unknown Completed [facility] HPV9 Unknown Completed [facility] Pneumococcal Polysaccharide, PPSV23 (PNEUMOVAX) Unknown Completed [facility] Influenza Virus Vaccine Quad .5 mL IM 6+ MO (FLUZONE/FLULAVAL/FL UARIX) Unknown Completed [facility] DTAP Unknown Completed [facility] HIB 4 Dose Schedule Unknown Completed [facility] HEPATITIS A Unknown Completed [facility] Hep B, Adol or Pedi Dosage Unknown Completed [facility] Meningococcal Polysaccharide (groups A, C, Y and W-135) conjugate vaccine (MCV4P) Unknown Completed [facility] MMR Unknown Completed [facility] Pneumococcal 13 Conjugate, PCV13 (Prevnar 13) Unknown Completed [facility] Polio (IPV/OPV) Unknown Completed [facility] TDAP Unknown Completed [facility] Varicella (varivax)(chicken pox) Unknown Completed [facility] HPV9 Unknown Completed [facility] Influenza Virus Vaccine Quad .5 mL IM 6+ MO (FLUZONE/FLULAVAL/FL UARIX) Unknown Completed [facility] DTAP Unknown Completed [facility] HIB 4 Dose Schedule Unknown Completed [facility] HEPATITIS A Unknown [facility], Ad[facility] or Pedi Dosage Unknown Completed [facility] Meningococcal Polysaccharide (groups A, C, Y and W-135) conjugate vaccine (MCV4P) Unknown Completed [facility] MMR Unknown Completed [facility] Pneumococcal 13 Conjugate, PCV13 (Prevnar 13) Unknown Completed [facility] Polio (IPV/OPV) Unknown Completed [facility] TDAP Unknown Completed [facility] Varicella (varivax)(chicken pox) Unknown Completed [facility] HPV9 Unknown Completed [facility] Pneumococcal Polysaccharide, PPSV23 (PNEUMOVAX) Unknown Completed [facility] Influenza Virus Vaccine Quad .5 mL IM 6+ MO (FLUZONE/FLULAVAL/FL UARIX) Unknown Completed [facility] DTAP Unknown Completed [facility] HIB 4 Dose Schedule Unknown Completed [facility] HEPATITIS A Unknown Completed [facility] Hep B, Adol or Pedi Dosage Unknown Completed [facility] Meningococcal Polysaccharide (groups A, C, Y and W-135) conjugate vaccine (MCV4P) Unknown Completed [facility] MMR Unknown Completed [facility] Pneumococcal 13 Conjugate, PCV13 (Prevnar 13) Unknown Completed [facility] Polio (IPV/OPV) Unknown Completed [facility] TDAP Unknown Completed [facility] Varicella (varivax)(chicken pox) Unknown Completed [facility] HPV9 Unknown Completed [facility] Pneumococcal Polysaccharide, PPSV23 (PNEUMOVAX) Unknown Completed [facility] Pneumococcal Polysaccharide, PPSV23 (PNEUMOVAX) Unknown Completed [facility] Influenza Virus Vaccine Quad .5 mL IM 6+ MO (FLUZONE/FLULAVAL/FL UARIX) Unknown Completed [facility] DTAP Unknown Completed [facility] HIB 4 Dose Schedule Unknown Completed [facility] HEPATITIS A Unknown Completed [facility] Hep B, Adol or Pedi Dosage Unknown Completed [facility] Meningococcal Polysaccharide (groups A, C, Y and W-135) conjugate vaccine (MCV4P) Unknown Completed [facility] MMR Unknown Completed [facility] Pneumococcal 13 Conjugate, PCV13 (Prevnar 13) Unknown Completed [facility] Polio (IPV/OPV) Unknown Completed [facility] TDAP Unknown Completed [facility] Varicella (varivax)(chicken pox) Unknown Completed [facility] HPV9 Unknown Completed [facility] Influenza Virus Vaccine Quad .5 mL IM 6+ MO (FLUZONE/FLULAVAL/FL UARIX) Unknown Completed [facility] DTAP Unknown Completed [facility] HIB 4 Dose Schedule Unknown Completed [facility] HEPATITIS A Unknown Completed [facility] Hep B, Adol or Pedi Dosage Unknown Completed [facility] Meningococcal Polysaccharide (groups A, C, Y and W-135) conjugate vaccine (MCV4P) Unknown Completed [facility] MMR Unknown Completed [facility] Pneumococcal 13 Conjugate, PCV13 (Prevnar 13) Unknown Completed [facility] Polio (IPV/OPV) Unknown Completed [facility] TDAP Unknown Completed [facility] Varicella (varivax)(chicken pox) Unknown Completed [facility] HPV9 Unknown Completed [facility] Pneumococcal Polysaccharide, PPSV23 (PNEUMOVAX) Unknown Completed [facility] Influenza Virus Vaccine Quad .5 mL IM 6+ MO (FLUZONE/FLULAVAL/FL UARIX) Unknown Completed [facility] DTAP Unknown Completed [facility] HIB 4 Dose Schedule Unknown Completed [facility] HEPATITIS A Unknown Completed [facility] Hep B, Adol or Pedi Dosage Unknown Completed [facility] Meningococcal Polysaccharide (groups A, C, Y and W-135) conjugate vaccine (MCV4P) Unknown Completed [facility] MMR Unknown Completed [facility] Pneumococcal 13 Conjugate, PCV13 (Prevnar 13) Unknown Completed [facility] Polio (IPV/OPV) Unknown Completed [facility] TDAP Unknown Completed [facility] Varicella (varivax)(chicken pox) Unknown Completed [facility] HPV9 Unknown Completed [facility] Pneumococcal Polysaccharide, PPSV23 (PNEUMOVAX) Unknown Completed [facility] Influenza Virus Vaccine Quad .5 mL IM 6+ MO (FLUZONE/FLULAVAL/FL UARIX) Unknown Completed [facility] DTAP Unknown Completed [facility] HIB 4 Dose Schedule Unknown Completed [facility] HEPATITIS A Unknown Completed [facility] Hep B, Adol or Pedi Dosage Unknown Completed [facility] Meningococcal Polysaccharide (groups A, C, Y and W-135) conjugate vaccine (MCV4P) Unknown Completed [facility] MMR Unknown Completed [facility] Pneumococcal 13 Conjugate, PCV13 (Prevnar 13) Unknown Completed [facility] Polio (IPV/OPV) Unknown Completed [facility] TDAP Unknown Completed [facility] Varicella (varivax)(chicken pox) Unknown Completed [facility] HPV9 Unknown Completed [facility] Pneumococcal Polysaccharide, PPSV23 (PNEUMOVAX) Unknown Completed [facility] Influenza Virus Vaccine Quad .5 mL IM 6+ MO (FLUZONE/FLULAVAL/FL UARIX) Unknown Completed [facility] DTAP Unknown Completed [facility] HIB 4 Dose Schedule Unknown Completed [facility] HEPATITIS A Unknown Completed [facility] Hep B, Adol or Pedi Dosage Unknown Completed [facility] Meningococcal Polysaccharide (groups A, C, Y and W-135) conjugate vaccine (MCV4P) Unknown Completed [facility] MMR Unknown Completed [facility] Pneumococcal 13 Conjugate, PCV13 (Prevnar 13) Unknown Completed [facility] Polio (IPV/OPV) Unknown Completed [facility] TDAP Unknown Completed [facility] Varicella (varivax)(chicken pox) Unknown Completed [facility] HPV9 Unknown Completed [facility] Pneumococcal Polysaccharide, PPSV23 (PNEUMOVAX) Unknown Completed [facility] Influenza Virus Vaccine Quad .5 mL IM 6+ MO (FLUZONE/FLULAVAL/FL UARIX) Unknown Completed [facility] DTAP Unknown Completed [facility] HIB 4 Dose Schedule Unknown Completed [facility] HEPATITIS A Unknown Completed [facility] Hep B, Adol or Pedi Dosage Unknown Completed [facility] Meningococcal Polysaccharide (groups A, C, Y and W-135) conjugate vaccine (MCV4P) Unknown Completed [facility] MMR Unknown Completed [facility] Pneumococcal 13 Conjugate, PCV13 (Prevnar 13) Unknown Completed [facility] Polio (IPV/OPV) Unknown [facility] Completed [facility] Varicella (varivax)(chicken pox) Unknown Completed [facility] HPV9 Unknown Completed [facility] Pneumococcal Polysaccharide, PPSV23 (PNEUMOVAX) Unknown Completed [facility] Vital Signs Vital Name Observation Time Observation Value Comments S ource Systolic blood pressure 2024-08-11 14:29:00 96 mm[Hg] [facility] Diastolic blood pressure 2024-08-11 14:29:00 56 mm[Hg] [facility] Heart rate 2024-08-11 14:29:00 69 /[facility] Body temperature 2024-08-11 14:29:00 37 Mery [facility] Respiratory rate 2024-08-11 14:29:00 17 /min [facility] Body height 2024-08-11 14:29:00 160 cm [facility] Body weight 2024-08-11 14:29:00 44.18 kg [facility] BMI 2024-08-11 14:29:00 17.25 kg/m2 [facility] Oxygen saturation in Arterial blood by Pulse oximetry 2024-08-11 14:29:00 100 /min [facility] Systolic blood pressure 2024-05-10 12:51:00 111 mm[Hg] [facility] Diastolic blood pressure 2024-05-10 12:51:00 72 mm[Hg] [facility] Heart rate 2024-05-10 12:51:00 108 /min [facility] Body temperature 2024-05-10 12:51:00 36.89 Mery [facility] Respiratory rate 2024-05-10 12:51:00 16 /min [facility] Body height 2024-05-10 12:51:00 160 cm [facility] Body weight 2024-05-10 12:51:00 44.169 kg [facility] BMI 2024-05-10 12:51:00 17.25 kg/m2 [facility] Systolic blood pressure 2024-02-26 13:56:00 106 mm[Hg] [facility] Diastolic blood pressure 2024-02-26 13:56:00 70 mm[Hg] [facility] Heart rate 2024-02-26 13:56:00 87 /min [facility] Respiratory rate 2024-02-26 13:56:00 18 /min [facility] Body height 2024-02-26 13:56:00 158.8 cm [facility] Body weight 2024-02-26 13:56:00 42.638 kg [facility] BMI 2024-02-26 13:56:00 16.92 kg/m2 [facility] Systolic blood pressure 2024-02-15 16:03:00 102 mm[Hg] [facility] Diastolic blood pressure 2024-02-15 16:03:00 70 mm[Hg] [facility] Heart rate 2024-02-15 16:03:00 101 /min [facility] Body temperature 2024-02-15 16:03:00 36.5 Mery [facility] Respiratory rate 2024-02-15 16:03:00 16 /min [facility] Body height 2024-02-15 16:03:00 158.8 cm [facility] Body weight 2024-02-15 16:03:00 42.048 kg [facility] BMI 2024-02-15 16:03:00 16.68 kg/m2 [facility] Oxygen saturation in Arterial blood by Pulse oximetry 2024-02-15 16:03:00 98 /min [facility] Systolic blood pressure 2023-10-21 21:11:00 102 mm[Hg] [facility] Diastolic blood pressure 2023-10-21 21:11:00 70 mm[Hg] [facility] Heart rate 2023-10-21 21:11:00 111 /min [facility] Body temperature 2023-10-21 21:11:00 36.67 Mery [facility] Respiratory rate 2023-10-21 21:11:00 14 /min [facility] Body weight 2023-10-21 21:11:00 40.415 kg [facility] Oxygen saturation in Arterial blood by Pulse oximetry 2023-10-21 21:11:00 100 /min [facility] Systolic blood pressure 2023-08-05 14:04:00 125 mm[Hg] [facility] Diastolic blood pressure 2023-08-05 14:04:00 75 mm[Hg] [facility] Heart rate 2023-08-05 14:04:00 106 /min [facility] Respiratory rate 2023-08-05 14:04:00 16 /min [facility] Body weight 2023-08-05 14:04:00 40.484 kg [facility] Systolic blood pressure 2023-07-22 20:25:00 99 mm[Hg] [facility] Diastolic blood pressure 2023-07-22 20:25:00 61 mm[Hg] [facility] Heart rate 2023-07-22 20:25:00 72 /min [facility] Respiratory rate 2023-07-22 20:25:00 16 /min [facility] Body weight 2023-07-22 20:25:00 39.52 kg [facility] Oxygen saturation in Arterial blood by Pulse oximetry 2023-07-22 20:25:00 99 /min [facility] Systolic blood pressure 2023-06-08 14:13:00 102 mm[Hg] [facility] Diastolic blood pressure 2023-06-08 14:13:00 64 mm[Hg] [facility] Heart rate 2023-06-08 14:13:00 99 /min [facility] Body temperature 2023-06-08 14:13:00 36.5 Mery [facility] Respiratory rate 2023-06-08 14:13:00 16 /min [facility] Body height 2023-06-08 14:13:00 158.1 cm [facility] Body weight 2023-06-08 14:13:00 38.964 kg [facility] BMI 2023-06-08 14:13:00 15.59 kg/m2 [facility] Body mass index (BMI) [Percentile] Per age and sex 2023-06-08 14:13:00 0.06 % [facility] Oxygen saturation in Arterial blood by Pulse oximetry 2023-06-08 14:13:00 98 /min [facility] Systolic blood pressure 2023-06-01 18:31:00 102 mm[Hg] [facility] Diastolic blood pressure 2023-06-01 18:31:00 67 mm[Hg] [facility] Heart rate 2023-06-01 18:31:00 91 /min [facility] Body temperature 2023-06-01 18:31:00 36.67 Mery [facility] Respiratory rate 2023-06-01 18:31:00 16 /min [facility] Body weight 2023-06-01 18:31:00 39.094 kg [facility] Systolic blood pressure 2023-03-30 17:46:00 113 mm[Hg] [facility] Diastolic blood pressure 2023-03-30 17:46:00 77 mm[Hg] [facility] Heart rate 2023-03-30 17:46:00 94 /min [facility] Body temperature 2023-03-30 17:46:00 36.61 Mery [facility] Respiratory rate 2023-03-30 17:46:00 15 /min [facility] Body weight 2023-03-30 17:46:00 39.735 kg [facility] Systolic blood pressure 2023-02-27 17:55:00 98 mm[Hg] [facility] Diastolic blood pressure 2023-02-27 17:55:00 56 mm[Hg] [facility] Heart rate 2023-02-27 17:55:00 66 /min [facility] Body temperature 2023-02-27 17:55:00 36.72 Mery [facility] Respiratory rate 2023-02-27 17:55:00 18 /min [facility] Body weight 2023-02-27 17:55:00 39.418 kg [facility] Oxygen saturation in Arterial blood by Pulse oximetry 2023-02-27 17:55:00 98 /min [facility] Systolic blood pressure 2023-01-28 19:56:00 113 mm[Hg] [facility] Diastolic blood pressure 2023-01-28 19:56:00 68 mm[Hg] [facility] Heart rate 2023-01-28 19:56:00 112 /min [facility] Body height 2023-01-28 19:56:00 160.7 cm [facility] Body weight 2023-01-28 19:56:00 39.055 kg [facility] BMI 2023-01-28 19:56:00 15.13 kg/m2 [facility] Body mass index (BMI) [Percentile] Per age and sex 2023-01-28 19:56:00 0.02 % [facility] Oxygen saturation in Arterial blood by Pulse oximetry 2023-01-28 19:56:00 99 /min [facility] Systolic blood pressure 2023-01-21 18:22:00 102 mm[Hg] [facility] Diastolic blood pressure 2023-01-21 18:22:00 69 mm[Hg] [facility] Heart rate 2023-01-21 18:22:00 97 /min [facility] Body temperature 2023-01-21 18:22:00 36.94 Mery [facility] Respiratory rate 2023-01-21 18:22:00 15 /min [facility] Body weight 2023-01-21 18:22:00 39.644 kg [facility] Oxygen saturation in Arterial blood by Pulse oximetry 2023-01-21 18:22:00 98 /min [facility] Systolic blood pressure 2023-01-02 13:48:00 108 mm[Hg] [facility] Diastolic blood pressure 2023-01-02 13:48:00 69 mm[Hg] [facility] Heart rate 2023-01-02 13:48:00 113 /min [facility] Body temperature 2023-01-02 13:48:00 37.22 Mery [facility] Respiratory rate 2023-01-02 13:48:00 15 /min [facility] Body weight 2023-01-02 13:48:00 39.554 kg [facility] Systolic blood pressure 2022-12-18 18:46:00 101 mm[Hg] [facility] Diastolic blood pressure 2022-12-18 18:46:00 70 mm[Hg] [facility] Heart rate 2022-12-18 18:46:00 98 /min [facility] Body temperature 2022-12-18 18:46:00 37 Mery [facility] Respiratory rate 2022-12-18 18:46:00 15 /min [facility] Body weight 2022-12-18 18:46:00 38.374 kg [facility] Oxygen saturation in Arterial blood by Pulse oximetry 2022-12-18 18:46:00 100 /min [facility] Systolic blood pressure 2022-12-02 18:55:00 108 mm[Hg] [facility] Diastolic blood pressure 2022-12-02 18:55:00 73 mm[Hg] [facility] Heart rate 2022-12-02 18:55:00 110 /min [facility] Body temperature 2022-12-02 18:55:00 36.94 Mery [facility] Respiratory rate 2022-12-02 18:55:00 19 /min [facility] Body weight 2022-12-02 18:55:00 38.828 kg [facility] Systolic blood pressure 2022-09-10 20:37:00 105 mm[Hg] [facility] Diastolic blood pressure 2022-09-10 20:37:00 73 mm[Hg] [facility] Heart rate 2022-09-10 20:37:00 119 /min [facility] Body temperature 2022-09-10 20:37:00 37.17 Mery [facility] Respiratory rate 2022-09-10 20:37:00 18 /min [facility] Body weight 2022-09-10 20:37:00 37.875 kg [facility] Oxygen saturation in Arterial blood by Pulse oximetry 2022-09-10 20:37:00 98 /min [facility] Systolic blood pressure 2022-06-16 15:22:00 103 mm[Hg] [facility] Diastolic blood pressure 2022-06-16 15:22:00 69 mm[Hg] [facility] Heart rate 2022-06-16 15:22:00 95 /min [facility] Body temperature 2022-06-16 15:22:00 36.44 Mery [facility] Respiratory rate 2022-06-16 15:22:00 18 /min [facility] Body weight 2022-06-16 15:22:00 39.508 kg [facility]terial blood by Pulse oximetry 2022-06-16 15:22:00 99 /min [facility] Systolic blood pressure 2022-05-23 15:59:00 97 mm[Hg] [facility] Diastolic blood pressure 2022-05-23 15:59:00 68 mm[Hg] [facility] Heart rate 2022-05-23 15:59:00 96 /min [facility] Body temperature 2022-05-23 15:59:00 36.78 Mery [facility] Respiratory rate 2022-05-23 15:59:00 18 /min [facility] Body weight 2022-05-23 15:59:00 40.552 kg [facility] Oxygen saturation in Arterial blood by Pulse oximetry 2022-05-23 15:59:00 99 /min [facility] Systolic blood pressure 2022-05-21 18:28:00 102 mm[Hg] [facility] Diastolic blood pressure 2022-05-21 18:28:00 69 mm[Hg] [facility] Heart rate 2022-05-21 18:28:00 103 /min [facility] Body temperature 2022-05-21 18:28:00 36.72 Mery [facility] Respiratory rate 2022-05-21 18:28:00 16 /min [facility] Body weight 2022-05-21 18:28:00 41.051 kg [facility] Systolic blood pressure 2022-03-21 08:00:00 93 mm[Hg] [facility] Diastolic blood pressure 2022-03-21 08:00:00 61 mm[Hg] [facility] Heart rate 2022-03-21 08:00:00 57 /min [facility] Respiratory rate 2022-03-21 08:00:00 16 /min [facility] Oxygen saturation in Arterial blood by Pulse oximetry 2022-03-21 08:00:00 99 /min [facility] Body temperature 2022-03-21 04:47:00 36.67 Mery [facility] Body height 2022-03-21 04:47:00 160 cm [facility] Body weight 2022-03-21 04:47:00 40.597 kg [facility] BMI 2022-03-21 04:47:00 15.85 kg/m2 [facility] Body mass index (BMI) [Percentile] Per age and sex 2022-03-21 04:47:00 0.31 % [facility] Systolic blood pressure 2022-02-24 15:11:00 99 mm[Hg] [facility] Diastolic blood pressure 2022-02-24 15:11:00 67 mm[Hg] [facility] Heart rate 2022-02-24 15:11:00 92 /min [facility] Body temperature 2022-02-24 15:11:00 36.33 Mery [facility] Respiratory rate 2022-02-24 15:11:00 12 /min [facility] Body height 2022-02-24 15:11:00 158.3 cm [facility] Body weight 2022-02-24 15:11:00 42.366 kg [facility] BMI 2022-02-24 15:11:00 16.91 kg/m2 [facility] Body mass index (BMI) [Percentile] Per age and sex 2022-02-24 15:11:00 2.60 % [facility] Systolic blood pressure 2022-02-24 15:11:00 99 mm[Hg] [facility] Diastolic blood pressure 2022-02-24 15:11:00 67 mm[Hg] [facility] Heart rate 2022-02-24 15:11:00 92 /min [facility] Body temperature 2022-02-24 15:11:00 36.33 Mery [facility] Respiratory rate 2022-02-24 15:11:00 12 /min [facility] Body height 2022-02-24 15:11:00 158.3 cm [facility] Body weight 2022-02-24 15:11:00 42.366 kg [facility] BMI 2022-02-24 15:11:00 16.91 kg/m2 [facility] Body mass index (BMI) [Percentile] Per age and sex 2022-02-24 15:11:00 2.60 % [facility] [facility] Procedures Procedure Date / Time Performed Performing Clinician Source ASSIGNMENT OF BENEFITS 2023-07-22 20:16:42 Docjessica r Unassigned, [place] [facility] MEDICATION CORRESPONDENCE 2023-05-18 05:01:00 Do ctor Unassigned, [place] [facility] POCT URINALYSIS 2023-02-27 00:00:00 Ivonne Nayak [facility] HB ECG ROUTINE & RHYTHM STRIP 2022-12-18 19:20:10 Ivy Tavares [facility] VACCINATION OF A MINOR 2022-12-18 18:41:26 Docjessica r Unassigned, [place] [facility] PATIENT FINANCIAL POLICY 2022-12-02 18:50:43 Doctor Unassigned, [place] [facility] POCT MOLECULAR FLU 2022-09-10 20:39:00 Srini Sesay [facility] CONSENT/REFUSAL FOR DIAGNOSIS AND TREATMENT 2022-06-16 15:13:11 Doctor Unassigned, [place] [facility] ASSIGNMENT OF BENEFITS 2022-06-16 15:12:55 Docjessica r Unassigned, [place] [facility] POCT GRP A STREP (MOLECULAR) 2022-05-23 00:00:00 Ivy Tavares [facility] COMP. METABOLIC PANEL (63596) 2022-03-21 06:40:00 Ricardo Severino [facility] CBC WITH DIFF 2022-03-21 06:40:00 Ricardo Severino [facility] POCT TEST 2022-03-21 04:59:00 Ricardo Severino [facility] URINALYSIS 2022-03-21 04:56:00 Ricardo Severino [facility] NOTICE OF PRIVACY PRACTICES 2022-03-21 04:39:52 Doctor Unassigned, [place] [facility] CONSENT/REFUSAL FOR DIAGNOSIS AND TREATMENT 2022-03-21 04:38:45 Doctor Unassigned, [place] [facility] IMMUNOGLOBULIN E, SERUM 2022-02-24 16:40:00 Kole Lugo Hanna [facility] IMMUNOGLOBULIN G A M PANEL 2022-02-24 16:40:00 Asael Lugo Hanna [facility] Encounters Start Date/Time End Date/Time Encounter Type Admission Type Attending [facility] Care Department Encounter ID Source 2021-07-01 17:55:48 Emergency [facility] [id number] [facility] 2021-06-28 16:10:45 Emergency [facility] [id number] [facility] 2021-06-28 11:07:15 Emergency [facility] [id number] [facility] 2021-06-27 18:46:17 Emergency [facility] [id number] [facility] 2024-08-11 00:00:00 2024-08-11 08:38:47 Letter (Out) Lázaro [facility] 1..114 350.1.13.10 4.2.7.2.686 [id number] 225 [id number] [facility] 2024-08-11 08:20:00 2024-08-11 08:38:20 Office Visit Lázaro Sushma [facility] 1..114 350.1.13.10 4.2.7.2.686 [id number] 225 [id number] [facility] 2024-08-11 08:20:00 2024-08-11 08:38:20 Outpatient R SUSHMA SESAY [facility] [id number] [facility] 2024-08-09 09:50:00 2024-08-09 09:50:00 Outpatient R IVONNE NAYAK [facility] [id number] [facility] 2024-06-06 13:00:00 2024-06-06 13:00:00 Outpatient R ASHLEY ANTHONY [facility] [id number] [facility] 2024-06-03 09:00:00 2024-06-03 09:00:00 Outpatient R GREG PATEL VIEN [facility] [id number] [facility] 2024-05-10 08:10:00 2024-05-10 08:51:35 Outpatient IVONNE TUTTLE [facility] [id number] [facility] 2024-05-10 08:10:00 2024-05-10 08:51:35 Office Visit Ivonne Nayak [facility] 1.2.0.114 350.1.13.10 4.2.7.2.686 [id number] 225 [id number] [facility] 2024-05-09 00:00:00 2024-05-09 16:30:03 Telephone Ivonne Nayak [facility] 1.2.840.114 350.1.13.10 4.2.7.2.686 [id number] 225 [id number] [facility] 2024-05-09 00:00:00 2024-05-09 08:54:04 Telephone Ivonne Nayak [facility] 1.2.840.114 350.1.13.10 4.2.7.2.686 [id number] 225 [id number] [facility] 2024-03-25 16:00:00 2024-03-25 16:00:00 Outpatient R ANDRYIVY CASTANEDA [facility] [id number] [facility] 2024-02-26 09:00:00 2024-02-26 09:35:27 Outpatient R GREG PATEL VIEN [facility] [id number] [facility] 2024-02-26 09:00:00 2024-02-26 09:35:27 Office Visit Greg Patel [facility] 1.2.840.114 350.1.13.10 4.2.7.2.686 [id number] [facility] 2024-02-15 11:00:00 2024-02-15 11:21:28 Outpatient R CASIE ONEIL LESLEY [facility] [id number] [facility] 2024-02-15 11:00:00 2024-02-15 11:21:28 Office Visit Casie Oneil [facility] 1.2.840.114 350.1.13.10 4.2.7.2.686 [id number] 225 [id number] [facility] 2024-02-15 00:00:00 2024-02-15 00:00:00 Patient Outreach Simona Manzo [facility] 1.2.840.114 350.1.13.10 4.2.7.2.686 [id number] 225 [id number] [facility] 2024-01-30 00:00:00 2024-02-01 09:39:57 Telephone Ivonne Nayak [facility] 1.2.840.114 350.1.13.10 4.2.7.2.686 [id number] [facility] 2024-02-01 09:10:00 2024-02-01 09:10:00 Outpatient R IVONNE NAYAK [facility] [id number] [facility] 2024-01-27 09:10:00 2024-01-27 09:10:00 Outpatient R IVONNE NAYAK [facility] [id number] [facility] 2024-01-26 00:00:00 2024-01-26 14:22:43 Telephone Ivonne Naayk [facility] 1.2.840.114 350.1.13.10 4.2.7.2.686 [id number] 225 [id number] [facility] 2023-11-04 07:30:00 2023-11-04 07:30:00 Outpatient R IVONNE NAYAK [facility] [id number] [facility] 2023-10-21 15:10:00 2023-10-21 15:35:17 Outpatient R IVONNE NAYAK [facility] [id number] [facility] 2023-10-21 15:10:00 2023-10-21 15:35:17 Office Visit Ivonne Nayak [facility] 1.2.840.114 350.1.13.10 4.2.7.2.686 [id number] 225 [id number] [facility] 2023-08-05 08:10:00 2023-08-05 08:40:57 Outpatient R IVONNE NAYAK [facility] [id number] [facility] 2023-08-05 08:10:00 2023-08-05 08:40:57 Office Visit Ivonne Nayak [facility] 1.2.840.114 350.1.13.10 4.2.7.2.686 [id number] 225 [id number] [facility] 2023-07-22 14:10:00 2023-07-22 15:06:30 Outpatient R IVONNE NAYAK [facility] [id number] [facility] 2023-07-22 14:10:00 2023-07-22 15:06:30 Office Visit Ivonne Nayak [facility] 1.840.114 350.1.13.10 4.2.7.2.686 [id number] [facility] 2023-07-22 00:00:00 2023-07-22 00:00:00 Orders Only Doctor Unassigned, [place] [facility] 1.840.114 350.1.13.10 4.2.7.2.686 [id number] [facility] 2023-06-08 09:00:00 2023-06-08 09:20:00 Office Visit Casie Oneil [facility] 1..114 350.1.13.10 4.2.7.2.686 [id number] 225 [id number] [facility] 2023-06-08 09:00:00 2023-06-08 09:00:00 Outpatient CASIE PEDRAZA LESLEY [facility] [id number] [facility] 2023-06-01 13:30:00 2023-06-01 14:13:57 Outpatient IVONNE TUTTLE [facility] [id number] [facility] 2023-06-01 13:30:00 2023-06-01 14:13:57 Office Visit Ivonne Nayak [facility] 1.840.114 350.1.13.10 4.2.7.2.686 [id number] [facility] 2023-05-18 00:00:00 2023-05-18 00:00:00 Orders Only Doctor Unassigned, [place] [facility] 1..114 350.1.13.10 4.2.7.2.686 [id number] [facility] 2023-04-16 15:00:00 2023-04-16 15:00:00 Outpatient CASIE PEDRAZA LESLEY [facility] [id number] [facility] 2023-03-30 12:50:00 2023-03-30 13:24:25 Outpatient IVONNE TUTTLE [facility] [id number] [facility] 2023-03-30 12:50:00 2023-03-30 13:24:25 Office Visit Ivonne Nayak [facility] 1.2.840.114 350.1.13.10 4.2.7.2.686 [id number] 225 [id number] [facility] 2023-02-27 12:50:00 2023-02-27 13:19:56 Outpatient IVONNE TUTTLE [facility] [id number] [facility] 2023-02-27 12:50:00 2023-02-27 13:19:56 Office Visit Ivonne Nayak [facility] 1.2.840.114 350.1.13.10 4.2.7.2.686 [id number] 225 [id number] [facility] 2023-01-28 14:50:00 2023-01-28 15:35:03 Outpatient IVONNE TUTTLE [facility] [id number] [facility] 2023-01-28 14:50:00 2023-01-28 15:35:03 Office Visit Ivonne Nayak [facility] 1.2.840.114 350.1.13.10 4.2.7.2.686 [id number] [facility] 2023-01-27 08:10:00 2023-01-27 08:10:00 Outpatient IVONNE TUTTLE [facility] [id number] [facility] 2023-01-21 13:30:00 2023-01-21 14:23:13 Outpatient IVONNE TUTTLE [facility] [id number] [facility] 2023-01-21 13:30:00 2023-01-21 14:23:13 Office Visit Ivonne Nayak [facility] 1.2840.114 350.1.13.10 4.2.7.2.686 [id number] 225 [id number] [facility] 2023-01-21 09:10:00 2023-01-21 09:10:00 Outpatient IVONNE TUTTLE [facility] [id number] [facility] 2023-01-16 00:00:00 2023-01-16 00:00:00 RefIvy Cristobal [facility] 1.2840.114 350.1.13.10 4.2.7.2.686 [id number] 225 [id number] [facility] 2023-01-02 08:50:00 2023-01-02 09:45:53 Outpatient IVONNE TUTTLE [facility] [id number] [facility] 2023-01-02 08:50:00 2023-01-02 09:45:53 Office Visit Ivonne Nayak [facility] 1.2840.114 350.1.13.10 4.2.7.2.686 [id number] 225 [id number] [facility] 2023-01-02 00:00:00 2023-01-02 00:00:00 Letter (Out) Ivonne Nayak [facility] 1.2840.114 350.1.13.10 4.2.7.2.686 [id number] 225 [id number] [facility] 2022-12-22 06:47:00 2022-12-22 23:59:00 Hospital Encounter Kadi Romero JANELLE 1.2840.114 350.1.13.10 4.2.7.2.686 [id number] [facility] 2022-12-22 00:00:00 2022-12-22 23:59:00 Outpatient KADI VIZCARRA [facility] [id number] [facility] 2022-12-19 00:00:00 2022-12-19 00:00:00 Patient Outreach Janny Prater [facility] 1.2.840.114 350.1.13.10 4.2.7.2.686 [id number] 225 [id number] [facility] 2022-12-18 13:40:00 2022-12-18 14:51:11 Outpatient R CARLYN ZAIDI [facility] [id number] [facility] 2022-12-18 13:40:00 2022-12-18 14:51:11 Office Visit Carlyn zaidi Ivy [facility] 1.2.840.114 350.1.13.10 4.2.7.2.686 [id number] 225 [id number] [facility] 2022-12-18 00:00:00 2022-12-18 00:00:00 Orders Only Doctor Unassigned, [place] [facility] 1.2.840.114 350.1.13.10 4.2.7.2.686 [id number] [facility] 2022-12-02 14:00:00 2022-12-02 14:08:05 Office Visit Lázaro Sushma [facility] 1.2.840.114 350.1.13.10 4.2.7.2.686 [id number] [facility] 2022-12-02 14:00:00 2022-12-02 14:08:05 Outpatient R LÁZARO [facility] [id number] [facility] 2022-12-02 00:00:00 2022-12-02 00:00:00 Orders Only Doctor Unassigned, [place] [facility] 1.2840.114 350.1.13.10 4.2.7.2.686 [id number] [facility] 2022-09-10 14:40:00 2022-09-10 15:00:00 Office Visit Sushma Sesay [facility] 1.2.840.114 350.1.13.10 4.2.7.2.686 [id number] 225 [id number] [facility] 2022-09-10 14:40:00 2022-09-10 14:40:00 Outpatient R LÁZARO [facility] [id number] [facility] 2022-09-10 00:00:00 2022-09-10 00:00:00 Letter (Out) Lázaro [facility] 1.2.840.114 350.1.13.10 4.2.7.2.686 [id number] 225 [id number] [facility] 2022-06-16 10:20:00 2022-06-16 11:25:46 [id number] 2022-06-16 10:20:00 2022-06-16 11:25:46 [facility] 1.2.840.114 350.1.13.10 4.2.7.2.686 [id number] 225 [id number] [facility] 2022-06-16 00:00:00 2022-06-16 00:00:00 Orders Only Doctor Unassigned, [place] [facility] 1.2.840.114 350.1.13.10 4.2.7.2.686 [id number] [facility] 2022-06-16 00:00:00 2022-06-16 00:00:00 Telephone Carlyn zaidi [facility] 1.2.840.114 350.1.13.10 4.2.7.2.686 [id number] 225 [id number] [facility] 2022-06-16 00:00:00 2022-06-16 00:00:00 Letter (Out) Carlyn zaidi Ivy [facility] 1.2.840.114 350.1.13.10 4.2.7.2.686 [id number] 225 [id number] [facility] 2022-06-16 00:00:00 2022-06-16 00:00:00 Telephone Alejo Lloyd [facility] 1.2.840.114 350.1.13.10 4.2.7.2.686 [id number] [facility] 2022-06-03 00:00:00 2022-06-03 00:00:00 Telephone Alejo Lloyd Romie [facility] 1.2.840.114 350.1.13.10 4.2.7.2.686 [id number] [facility] 2022-05-30 00:00:00 2022-05-30 00:00:00 Telephone Alejo Lloyd Romie [facility] 1.2.840.114 350.1.13.10 4.2.7.2.686 [id number] [facility] 2022-05-29 00:00:00 2022-05-29 00:00:00 Telephone Alejo Lloyd [facility] 1.2.840.114 350.1.13.10 4.2.7.2.686 [id number] [facility] 2022-05-23 11:00:00 2022-05-23 11:43:52 Outpatient R IVY OCHOA [facility] [id number] [facility] 2022-05-23 11:00:00 2022-05-23 11:43:52 Office Visit Carlyn zaidi Ivy [facility] 1.2.840.114 350.1.13.10 4.2.7.2.686 [id number] 225 [id number] [facility] 2022-05-23 00:00:00 2022-05-23 00:00:00 [facility] (Out[facility] 1.2840.114 350.1.13.10 4.2.7.2.686 [id number] 225 [id number] [facility] 2022-05-23 00:00:00 2022-05-23 00:00:00 Letter (Out) Carlyn zaidi [facility] 1.0.114 350.1.13.10 4.2.7.2.686 [id number] 225 [id number] [facility] 2022-05-21 13:20:00 2022-05-21 13:46:44 Outpatient R LÁZARO [facility] [id number] [facility] 2022-05-21 13:20:00 2022-05-21 13:46:44 Office Visit Lázaro, [facility] 1.0.114 350.1.13.10 4.2.7.2.686 [id number] 225 [id number] [facility] 2022-05-21 00:00:00 2022-05-21 00:00:00 Letter (Out) Lázaro, [facility] 1.2840.114 350.1.13.10 4.2.7.2.686 [id number] 225 [id number] [facility] 2022-05-21 00:00:00 2022-05-21 00:00:00 Telephone Alejo Lloyd [facility] 1.2840.114 350.1.13.10 4.2.7.2.686 [id number] [facility] 2022-03-20 23:51:00 2022-03-21 03:03:00 Emergency X RICARDO SEVERINO [facility] [id number] [facility] 2022-03-20 23:51:00 2022-03-21 03:03:00 Emergency Ricardo Severino [facility] 1.2.840.114 350.1.13.10 4.2.7.2.686 [id number] [facility] 2022-03-20 00:00:00 2022-03-20 00:00:00 Orders Only Doctor Unassigned, [place] [facility] 1.2.840.114 350.1.13.10 4.2.7.2.686 [id number] [facility] 2022-02-28 00:00:00 2022-02-28 00:00:00 Telephone Alejo Lloyd Romie [facility] 1.2.840.114 350.1.13.10 4.2.7.2.686 [id number] 147 [id number] [facility] 2022-02-26 00:00:00 2022-02-26 00:00:00 Telephone YvasHanna Weiss [facility] 1.2.840.114 350.1.13.10 4.2.7.2.686 [id number] 147 [id number] [facility] 2022-02-24 10:30:00 2022-02-24 11:00:00 Office Visit Alejo Lloyd Romie [facility] 1.2.840.114 350.1.13.10 4.2.7.2.686 [id number] [facility] 2022-02-24 10:30:00 2022-02-24 11:00:00 Office Visit Alejo Lloyd Romie [facility] 1.2.840.114 350.1.13.10 4.2.7.2.686 [id number] [facility] 2022-02-24 10:30:00 2022-02-24 10:30:00 Outpatient R ALEJO LLOYD [facility] [id number] [facility] 2022-02-24 10:30:00 2022-02-24 10:30:00 Outpatient ALEJO AMOS [facility] [id number] [facility] 2022-02-24 10:30:00 2022-02-24 10:30:00 Outpatient ALEJO AMOS [facility] [id number] [facility] 2022-01-30 09:00:00 2022-01-30 09:00:00 Outpatient Maria M SESAY SUSHMA [facility] [id number] [facility] 2022-01-14 00:00:00 2022-01-14 00:00:00 Telephone Alejo Lloyd [facility] 1.2.840.114 350.1.13.10 4.2.7.2.686 [id number] [facility] 2022-01-01 00:00:00 2022-01-01 00:00:00 Telephone Lázaro Sushma [facility] 1.2.840.114 350.1.13.10 4.2.7.2.686 [id number] [facility] 2021-12-30 08:20:00 2021-12-30 08:40:00 Office Visit Lázaro Sushma [facility] 1.2.840.114 350.1.13.10 4.2.7.2.686 [id number] 225 [id number] [facility] 2021-12-30 08:20:00 2021-12-30 08:20:00 Outpatient Maria M SESAY [facility] [id number] [facility] 2021-12-30 00:00:00 2021-12-30 00:00:00 Letter (Out) Ivonne Nayak [facility] 1.2.840.114 350.1.13.10 4.2.7.2.686 [id number] 225 [id number] [facility] 2021-12-09 09:00:00 2021-12-09 09:32:26 Outpatient R LÁZARO, [facility] [id number] [facility] 2021-12-09 09:00:00 2021-12-09 09:32:26 Office Visit Lázaro, [facility] 1.2.840.114 350.1.13.10 4.2.7.2.686 [id number] [facility] 2021-12-09 09:00:00 2021-12-09 09:32:26 Outpatient R LÁZARO [facility] [id number] [facility] 2021-12-09 00:00:00 2021-12-09 00:00:00 Letter (Out) Lázaro [facility] 1.2840.114 350.1.13.10 4.2.7.2.686 [id number] 225 [id number] [facility] 2021-11-29 15:30:00 2021-11-29 15:49:23 Outpatient IVONNE TUTTLE [facility] [id number] [facility] 2021-11-29 15:30:00 2021-11-29 15:49:23 Office Visit Ivonne Nayak [facility] 1.2.840.114 350.1.13.10 4.2.7.2.686 [id number] 225 [id number] [facility] 2021-11-29 00:00:00 2021-11-29 00:00:00 Letter (Out) Ivonne Nayak [facility] 1.2840.114 350.1.13.10 4.2.7.2.686 [id number] 225 [id number] [facility] 2021-11-27 00:00:00 2021-11-27 00:00:00 Telephone Ivonne Nayak [facility] 1.840.114 350.1.13.10 4.2.7.2.686 [id number] 225 [id number] [facility] 2021-11-18 09:00:00 2021-11-18 11:00:05 Office Visit Christiano Hartman [facility] 1.840.114 350.1.13.10 4.2.7.2.686 [id number] [facility] 2021-11-18 09:00:00 2021-11-18 11:00:05 Outpatient R CHRISTIANO HARTMAN [facility] [id number] [facility] 2021-11-18 09:00:00 2021-11-18 09:00:00 Outpatient R CHRISTIANO HARTMAN [facility] [id number] [facility] 2021-11-18 09:00:00 2021-11-18 09:00:00 Outpatient R CHRISTIANO HARTMAN [facility] [id number] [facility] 2021-11-18 09:00:00 2021-11-18 09:00:00 Outpatient R CHRISTIANO HARTMAN [facility] [id number] [facility] 2021-11-18 09:00:00 2021-11-18 09:00:00 Outpatient R CHRISTIANO HARTMAN [facility] [id number] [facility] 2021-11-18 09:00:00 2021-11-18 09:00:00 Outpatient R DEVAN CHRISTIANO [facility] [id number] [facility] 2021-11-18 09:00:00 2021-11-18 09:00:00 Outpatient R DEVAN CH[facility]STIANO [facility] [id number] [facility] 2021-11-18 00:00:00 2021-11-18 00:00:00 Letter (Out) Devan Christiano [facility] 1.2.840.114 350.1.13.10 4.2.7.2.686 [id number] [facility] 2021-11-18 00:00:00 2021-11-18 00:00:00 Letter (Out) Christiano Hartman [facility] 1.2.840.114 350.1.13.10 4.2.7.2.686 [id number] [facility] 2021-11-18 00:00:00 2021-11-18 00:00:00 Orders Only Doctor Unassigned, [place] [facility] 1.2.840.114 350.1.13.10 4.2.7.2.686 [id number] [facility] 2021-10-30 08:50:00 2021-10-30 09:19:34 Outpatient IVONNE TUTTLE [facility] [id number] [facility] 2021-10-30 08:50:00 2021-10-30 09:19:34 Office Visit Ivonne Nayak [facility] 1.2840.114 350.1.13.10 4.2.7.2.686 [id number] [facility] 2021-10-30 00:00:00 2021-10-30 00:00:00 Letter (Out) Ivonne Nayak [facility] 1.2.840.114 350.1.13.10 4.2.7.2.686 [id number] [facility] 2021-10-09 09:10:00 2021-10-09 10:00:26 Outpatient IVONNE TUTTLE [facility] [id number] [facility] 2021-10-09 09:10:00 2021-10-09 10:00:26 Office Visit Ivonne Nayak [facility] 1.2840.114 350.1.13.10 4.2.7.2.686 [id number] [facility] 2021-10-09 09:10:00 2021-10-09 10:00:26 Outpatient IVONNE TUTTLE [facility] [id number] [facility] 2021-09-13 10:40:00 2021-09-13 11:02:02 Outpatient YENI MORELAND [facility] [id number] [facility] 2021-09-13 10:40:00 2021-09-13 11:02:02 Office Visit Yeni Reina [facility] 1.2840.114 350.1.13.10 4.2.7.2.686 [id number] [facility] 2021-09-13 10:40:00 2021-09-13 11:02:02 Outpatient YENI MORELAND [facility] [id number] [facility] 2021-09-13 10:40:00 2021-09-13 11:02:02 Outpatient [facility] [facility] [id number] [facility] 2021-09-13 00:00:00 2021-09-13 00:00:00 Orders Only Doctor Unassigned, [place] [facility] 1.84.114 350.1.13.10 4.2.7.2.686 [id number] [id number] [facility] 2021-09-11 13:00:00 2021-09-11 13:23:13 Office Visit Zain Rosas [facility] 1..114 350.1.13.10 4.2.7.2.686 [id number] 225 [id number] [facility] 2021-09-11 13:00:00 2021-09-11 13:23:13 Outpatient R ZAIN ROSAS [facility] [id number] [facility] 2021-09-11 13:00:00 2021-09-11 13:23:13 Outpatient ZAIN SEPULVEDA [facility] [id number] [facility] 2021-09-11 13:00:00 2021-09-11 13:00:00 Outpatient ZAIN SEPULVEDA [facility] [id number] [facility] 2021-09-11 00:00:00 2021-09-11 00:00:00 Letter (Out) Sonia Zain [facility] 1..840.114 350.1.13.10 4.2.7.2.686 [id number] 225 [id number] [facility] 2021-08-12 08:49:00 2021-08-12 10:08:00 Emergency JENNIFER DAMIAN [facility] ERT [id number] [facility] 2021-08-12 08:49:00 2021-08-12 10:08:00 Emergency Jennifer Roche [facility] 1..840.114 350.1.13.10 4.2.7.2.686 [id number] [id number] [facility] 2021-08-12 08:49:00 2021-08-12 10:08:00 Emergency X JENNIFER ROCHE [facility] ERT [id number] [facility] 2021-08-12 08:49:00 2021-08-12 10:08:00 Emergency X JENNIFER ROCHE [facility] ERT [id number] [facility] 2021-08-12 08:49:00 2021-08-12 10:08:00 Emergency X JENNIFER ROCHE [facility] ERT [id number] [facility] 2021-07-05 09:15:00 2021-07-05 12:26:00 Emergency Jessica FONSECA [facility] ERT [id number] [facility] 2021-07-05 09:15:00 2021-07-05 12:26:00 Emergency Jessica Ortega [facility] 1..840.114 350.1.13.10 4.2.7.2.686 [id number] [facility] 2021-07-01 08:30:00 2021-07-01 08:53:10 Outpatient R IVONNE NAYAK [facility] [id number] [facility] 2021-07-01 08:21:58 2021-07-01 08:53:10 Office Visit Ivonne Nayak [facility] 1.2.840.114 350.1.13.10 4.2.7.2.686 [id number] 225 [id number] [facility] 2021-07-01 00:00:00 2021-07-01 00:00:00 Letter (Out) Ivonne Nayak [facility] 1.2840.114 350.1.13.10 4.2.7.2.686 [id number] 225 [id number] [facility] 2021-06-12 08:12:56 2021-06-12 09:00:36 Office Visit Ivonne Nayak [facility] 1.2.840.114 350.1.13.10 4.2.7.2.686 [id number] [facility] 2021-06-12 08:30:00 2021-06-12 08:30:00 Outpatient R IVONNE NAYAK [facility] [id number] [facility] 2021-06-12 00:00:00 2021-06-12 00:00:00 Orders Only Doctor Unassigned, [place] [facility] 1.2.840.114 350.1.13.10 4.2.7.2.686 [id number] [id number] [facility] 2021-06-12 00:00:00 2021-06-12 00:00:00 Letter (Out) Ivonne Nayak [facility] 1.2.840.114 350.1.13.10 4.2.7.2.686 [id number] 225 [id number] [facility] 2021-05-20 10:37:41 2021-05-20 11:18:33 Office Visit Ivonne Nayak [facility] 1.2840.114 350.1.13.10 4.2.7.2.686 [id number] 225 [id number] [facility] 2021-05-20 10:50:00 2021-05-20 10:50:00 Outpatient R IVONNE NAYAK [facility] [id number] [facility] 2021-05-20 00:00:00 2021-05-20 00:00:00 Letter (Out) Ivonne Nayak [facility] 1.2840.114 350.1.13.10 4.2.7.2.686 [id number] 225 [id number] [facility] 2021-05-20 00:00:00 2021-05-20 00:00:00 Letter (Out) Ivonne Nayak [facility] 1.2840.114 350.1.13.10 4.2.7.2.686 [id number] 225 [id number] [facility] 2021-05-17 10:50:00 2021-05-17 10:50:00 Outpatient R IVONNE NAYAK [facility] [id number] [facility] 2021-04-30 15:18:22 2021-04-30 16:18:22 Nurse Visit Therapy, Adc [facility] 1.0.114 350.1.13.10 4.2.7.2.686 [id number] 053 [id number] [facility] 2021-04-30 15:18:22 2021-04-30 16:18:22 Nurse Visit Therapy, Adc Covid Infusion [facility] 1.840.114 350.1.13.10 4.2.7.2.686 [id number] 053 [id number] [facility] 2021-04-30 15:30:00 2021-04-30 15:30:00 Outpatient R HARMAN ESCALONA [facility] [id number] [facility] 2021-04-25 13:20:00 2021-04-25 13:20:00 Outpatient R SUSHMA YU [facility] [id number] [facility] 2021-04-24 09:03:00 2021-04-24 12:06:00 Emergency Singer Harman [facility] 1.2.840.114 350.1.13.10 4.2.7.2.686 [id number] 084 [id number] [facility] 2021-04-24 09:03:00 2021-04-24 12:06:00 Emergency Singer Harman [facility] 1.2.840.114 350.1.13.10 4.2.7.2.686 [id number] 084 [id number] [facility] 2021-04-08 11:12:30 2021-04-08 12:13:30 Office Visit Yeni Reina [facility] 1.2.840.114 350.1.13.10 4.2.7.2.686 [id number] 225 [id number] [facility] 2021-04-08 11:20:00 2021-04-08 11:20:00 Outpatient R YENI REINA [facility] [id number] [facility] 2021-03-25 08:33:34 2021-03-25 09:37:23 Office Visit Yeni Reina [facility] 1.2.840.114 350.1.13.10 4.2.7.2.686 [id number] [facility] 2021-03-25 08:40:00 2021-03-25 08:40:00 Outpatient R YENI REINA [facility] [id number] [facility] 2021-03-25 08:40:00 2021-03-25 08:40:00 Outpatient R YENI REINA [facility] [id number] [facility] 2021-03-15 08:56:12 2021-03-15 10:15:11 Office Visit Yeni Reina [facility] 1.2.840.114 350.1.13.10 4.2.7.2.686 [id number] 225 [id number] [facility] 2021-03-15 09:00:00 2021-03-15 09:00:00 Outpatient Maria M REINA YENI [facility] [id number] [facility] 2021-03-15 00:00:00 2021-03-15 00:00:00 Letter (Out) Yeni Reina [facility] 1.2.840.114 350.1.13.10 4.2.7.2.686 [id number] 225 [id number] [facility] 2021-02-05 00:00:00 2021-02-05 00:00:00 Telephone Alejo Lloyd [facility] 1.2.840.114 350.1.13.10 4.2.7.2.686 [id number] [facility] 2021-02-01 00:00:00 2021-02-01 00:00:00 Telephone Ivonne Nayak [facility] 1.2.840.114 350.1.13.10 4.2.7.2.686 [id number] 225 [id number] [facility] 2020-12-10 12:37:56 2020-12-10 13:10:49 Office Visit Ivonne Nayak [facility] 1.2.840.114 350.1.13.10 4.2.7.2.686 [id number] 225 [id number] [facility] 2020-12-10 12:50:00 2020-12-10 12:50:00 Outpatient IVONNE TUTTLE [facility] [id number] [facility] 2020-11-21 00:00:00 2020-11-21 00:00:00 Telephone Alejo Lloyd [facility] 1..840.114 350.1.13.10 4.2.7.2.686 [id number] 147 [id number] [facility] 2020-11-09 00:00:00 2020-11-09 00:00:00 Telephone Alejo Lloyd [facility] 1..840.114 350.1.13.10 4.2.7.2.686 [id number] 147 [id number] [facility] 2020-11-08 10:00:00 2020-11-08 10:00:00 Outpatient CHRISTIANO LE [facility] [id number] [facility] 2020-11-08 00:00:00 2020-11-08 00:00:00 Letter (Out) Doctor Unassigned, [place] [facility] 1..840.114 350.1.13.10 4.2.7.2.686 [id number] 044 [id number] [facility] 2020-10-22 14:40:00 2020-10-22 14:40:00 Outpatient YORDAN MCKEON [facility] [id number] [facility] 2020-10-22 09:22:20 2020-10-22 09:38:15 Nurse Visit Nurse, Yordan Duarte [facility] 1..840.114 350.1.13.10 4.2.7.2.686 [id number] 152 [id number] [facility] 2020-10-22 00:00:00 2020-10-22 00:00:00 Letter (Out) Yordan Self Charles [facility] 1.2.840.114 350.1.13.10 4.2.7.2.686 [id number] 152 [id number] [facility] 2020-10-19 00:00:00 2020-10-19 00:00:00 Telephone Alejo Lloyd [facility] 1.2.840.114 350.1.13.10 4.2.7.2.686 [id number] [facility] 2020-10-10 00:00:00 2020-10-10 00:00:00 Telephone Alejo Lloyd [facility] 1.2.840.114 350.1.13.10 4.2.7.2.686 [id number] [facility] 2020-10-04 10:00:00 2020-10-04 10:00:00 Outpatient CHRISTIANO LE [facility] [id number] [facility] 2020-10-02 10:30:00 2020-10-02 10:30:00 Outpatient SEBASTIEN LANDEROS [facility] [id number] [facility] 2020-10-02 00:00:00 2020-10-02 00:00:00 Orders Only Doctor Unassigned, [place] [facility] 1.2.840.114 350.1.13.10 4.2.7.2.686 [id number] [id number] [facility] 2020-09-28 00:00:00 2020-09-28 00:00:00 Telephone ElizabethClaudia [facility] 1.2.840.114 350.1.13.10 4.2.7.2.686 [id number] 147 [id number] [facility] 2020-09-26 00:00:00 2020-09-26 00:00:00 Telephone Alejo Lloyd Romie [facility] 1.2.840.114 350.1.13.10 4.2.7.2.686 [id number] 147 [id number] [facility] 2020-09-26 00:00:00 2020-09-26 00:00:00 Telephone Ivonne Nayak [facility] 1.2.840.114 350.1.13.10 4.2.7.2.686 [id number] [facility] 2020-09-25 00:00:00 2020-09-25 00:00:00 Letter (Out) Ivonne Nayak [facility] 1.2.840.114 350.1.13.10 4.2.7.2.686 [id number] 225 [id number] [facility] 2020-09-24 13:40:00 2020-09-24 13:40:00 Outpatient YORDAN MCKEON [facility] [id number] [facility] 2020-09-24 09:33:13 2020-09-24 09:53:13 Nurse Visit Nurse, [facility] Yordan Self [facility] 1.2.840.114 350.1.13.10 4.2.7.2.686 [id number] 152 [id number] [facility] 2020-09-24 00:00:00 2020-09-24 00:00:00 Letter (Out) Yordan Self 1.2.840.114 350.1.13.10 4.2.7.2.686 [id number] [facility] 2020-09-24 00:00:00 2020-09-24 00:00:00 Telephone Ivonne Nayak [facility] 1.2.840.114 350.1.13.10 4.2.7.2.686 [id number] 225 [id number] [facility] 2020-09-18 00:00:00 2020-09-18 00:00:00 Telephone Ivonne Nayak [facility] 1.2.840.114 350.1.13.10 4.2.7.2.686 [id number] 225 [id number] [facility] 2020-09-14 00:00:00 2020-09-14 00:00:00 Telephone Claudia Johnson [facility] 1.2.840.114 350.1.13.10 4.2.7.2.686 [id number] [facility] 2020-09-14 00:00:00 2020-09-14 00:00:00 Telephone Claudia Johnson [facility] 1.2.840.114 350.1.13.10 4.2.7.2.686 [id number] 147 [id number] [facility] 2020-09-11 00:00:00 2020-09-11 00:00:00 Telephone Ivonne Nayak [facility] 1.2.840.114 350.1.13.10 4.2.7.2.686 [id number] [facility] 2020-09-10 10:31:00 2020-09-10 11:01:00 Office Visit Alejo Lloyd Rafael Grubbs 1.2.840.114 350.1.13.10 4.2.7.2.686 [id number] 147 [id number] [facility] 2020-09-10 08:01:22 2020-09-10 08:55:15 Office Visit Ivonne Nayak [facility] 1.2.840.114 350.1.13.10 4.2.7.2.686 [id number] [facility] 2020-09-10 08:10:00 2020-09-10 08:10:00 Outpatient R IVONNE NAYAK [facility] [id number] [facility] 2020-09-10 00:00:00 2020-09-10 00:00:00 Letter (Out) Ivonne Nayak [facility] 1.2.840.114 350.1.13.10 4.2.7.2.686 [id number] 225 [id number] [facility] 2020-09-10 00:00:00 2020-09-10 00:00:00 Letter (Out) Ivonne Nayak [facility] 1.2.840.114 350.1.13.10 4.2.7.2.686 [id number] [facility] 2020-09-10 00:00:00 2020-09-10 00:00:00 Letter (Out) Alejo Lloyd [facility] [place] 1.2.840.114 350.1.13.10 4.2.7.2.686 [id number] [facility] 2020-09-07 10:00:00 2020-09-07 10:00:00 Outpatient R ALEJO LLOYD [facility] [id number] [facility] 2020-09-03 13:34:57 2020-09-03 14:19:15 Office Visit Yeni Reina [facility] 1.2840.114 350.1.13.10 4.2.7.2.686 [id number] [facility] 2020-09-03 13:40:00 2020-09-03 13:40:00 Outpatient R YENI REINA [facility] [id number] [facility] 2020-08-27 08:50:00 2020-08-27 08:50:00 Outpatient R IVONNE NAYAK [facility] [id number] [facility] 2020-08-21 09:25:47 2020-08-21 09:46:57 Nurse Visit Nurse, Jazz Bucio [facility] 1.2.840.114 350.1.13.10 4.2.7.2.686 [id number] 225 [id number] 2020-08-21 09:25:47 2020-08-21 09:46:57 Nurse Visit Nurse, Ivonne Wesely [facility] 1.2840.114 350.1.13.10 4.2.7.2.686 [id number] 225 [id number] [facility] 2020-08-21 09:30:00 2020-08-21 09:30:00 Outpatient IVONNE TUTTLE [facility] [id number] [facility] 2020-06-20 12:49:20 2020-06-20 13:58:11 Office Visit Ivonne Nayak [facility] 1.840.114 350.1.13.10 4.2.7.2.686 [id number] 225 [id number] [facility] 2020-06-20 12:49:20 2020-06-20 13:58:11 Office Visit Ivonne Nayak [facility] 1.0.114 350.1.13.10 4.2.7.2.686 [id number] 2020-06-20 13:10:00 2020-06-20 13:10:00 Outpatient IVONNE TUTTLE [facility] [id number] [facility] 2020-05-21 08:23:28 2020-05-21 08:32:31 Nurse Visit Nurse, Ivonne Wesley [facility] 1.20.114 350.1.13.10 4.2.7.2.686 [id number] [facility] 2020-05-21 08:20:00 2020-05-21 08:20:00 Outpatient IVONNE TUTTLE [facility] [id number] [facility] 2020-05-21 00:00:00 2020-05-21 00:00:00 Orders Only Doctor Unassigned, [place] [facility] 1.2.840.114 350.1.13.10 4.2.7.2.686 [id number] [facility] 2020-05-14 13:30:00 2020-05-14 13:30:00 Outpatient IVONNE TUTTLE [facility] [id number] [facility] 2020-05-06 15:21:00 2020-05-06 19:19:00 Emergency [facility] [id number] [facility] 2020-05-06 15:21:00 2020-05-06 19:19:00 Emergency Chen Shields [facility] 1.2.840.114 350.1.13.10 4.2.7.2.686 [id number] 084 [id number] [facility] 2020-05-06 00:00:00 2020-05-06 00:00:00 Orders Only Doctor Unassigned, [place] [facility] 1.2.840.114 350.1.13.10 4.2.7.2.686 [id number] [id number] [facility] 2020-04-05 21:49:00 2020-04-06 00:26:00 Emergency Jeison Lui Andrea [facility] 1.2.840.114 350.1.13.10 4.2.7.2.686 [id number] [id number] [facility] 2020-02-20 09:02:57 2020-02-20 09:22:57 Nurse Visit Nurse, Ivonne Wesley [facility] 1.2.840.114 350.1.13.10 4.2.7.2.686 [id number] 225 [id number] [facility] 2020-02-20 09:00:00 2020-02-20 09:00:00 Outpatient IVONNE TUTTLE [facility] [id number] [facility] 2020-02-15 07:35:19 2020-02-15 08:48:51 Office Visit JamaalLoveRojo Ivonne [facility] 1.2.840.114 350.1.13.10 4.2.7.2.686 [id number] 225 [id number] [facility] 2020-02-15 07:50:00 2020-02-15 07:50:00 Outpatient R IVONNE NAYAK [facility] [id number] [facility] 2019-12-23 15:30:00 2019-12-23 15:30:00 Outpatient R SALLYJOSIVONNE MASTERSON [facility] [id number] [facility] 2019-12-23 12:47:38 2019-12-23 13:07:38 Telemedici ne Visit SaravananRojo Ivonne Ordaz [facility] 1.2.840.114 350.1.13.10 4.2.7.2.686 [id number] 225 [id number] [facility] 2019-12-22 01:51:19 2019-12-22 02:57:00 Emergency X NIGHAT [facility] E[facility] [id number] [facility] 2019-12-22 01:51:19 2019-12-22 02:57:00 Emergency Christiano Disla Maria M [facility] 1.2.840.114 350.1.13.10 4.2.7.2.686 [id number] [id number] [facility] 2019-12-22 00:00:00 2019-12-22 00:00:00 [place] Ivonne Ordaz [facility] 1.2.840.114 350.1.13.10 4.2.7.2.686 [id number] 225 [id number] [facility] 2019-10-04 21:24:15 2019-10-04 23:11:00 Emergency X RICARDO SEVERINO [facility] [id number] [facility] 2019-10-04 21:24:15 2019-10-04 23:11:00 Emergency Ricardo Severino [facility] 1.2.840.114 350.1.13.10 4.2.7.2.686 [id number] 084 [id number] [facility] 2019-10-04 14:30:42 2019-10-04 15:36:54 Office Visit Zain Rosas [facility] 1.2.840.114 350.1.13.10 4.2.7.2.686 [id number] 225 [id number] [facility] 2019-10-04 00:00:00 2019-10-04 00:00:00 Letter (Out) Ivonne Nayak [facility] 1.2.840.114 350.1.13.10 4.2.7.2.686 [id number] 225 [id number] [facility] 2019-10-04 00:00:00 2019-10-04 00:00:00 Letter (Out) Ivonne Nayak [facility] 1.2.840.114 350.1.13.10 4.2.7.2.686 [id number] 225 [id number] [facility] 2019-10-04 00:00:00 2019-10-04 00:00:00 Orders Only Doctor Unassigned, [place] [facility] 1.2.840.114 350.1.13.10 4.2.7.2.686 [id number] [id number] [facility] 2019-05-20 13:25:10 2019-05-20 14:25:03 Office Visit Ivonne Nayak [facility] 1.2.840.114 350.1.13.10 4.2.7.2.686 [id number] 225 [id number] [facility] 2019-05-20 00:00:00 2019-05-20 00:00:00 Orders Only Doctor Unassigned, [place] [facility] 1.2.840.114 350.1.13.10 4.2.7.2.686 [id number] [id number] [facility] 2019-05-20 00:00:00 2019-05-20 00:00:00 Letter (Out) Ivonne Nayak [facility] 1.2.840.114 350.1.13.10 4.2.7.2.686 [id number] 225 [id number] [facility] 2019-04-15 09:56:15 2019-04-15 10:37:17 Office Visit Ivonne Nayak [facility] 1.2.840.114 350.1.13.10 4.2.7.2.686 [id number] 225 [id number] [facility] 2019-04-13 00:00:00 2019-04-13 00:00:00 Telephone Ivonne Nayak [facility] 1.2.840.114 350.1.13.10 4.2.7.2.686 [id number] 225 [id number] [facility] Results Test Description Test Time Test Comments Results Result Co [facility] [id number] 18:23:00* Test Item Value Reference Range Interpretation [...] cloudy Lab Interpretation (test cod e = 91152-3) [facility] URINALYSIS W SPECIFIC [id number] 18:23:00* Test Item Value Reference Range Interpretation [...] cloudy Lab Interpretation (test cod e = 60279-9) [facility] MOLECULAR [id number] 20:50:59* Test Item Value Reference Range Interpretation Comme nts POCT Molecular FluA (test co de = 35490-9) Negative Negative POCT Molecular FluB (test co de = 44557-9) Negative Negative Lab Interpretation (test cod e = 49540-4) Normal [facility] MOLECULAR [id number] 20:50:59* Test Item Value Reference Range Interpretation Comme nts POCT Molecular FluA (test co de = 35594-5) Negative Negative POCT Molecular FluB (test co de = 26054-0) Negative Negative Lab Interpretation (test cod e = 35521-6) Normal [facility] GRP A STREP (MOLECULAR)2022-05-23 16:43:00* Test Item Value Reference Range Interpretation Comme nts POCT GP A STREP (test code = 63695-9) negative Negative - Negative Lab Interpretation (test cod e = 48145-1) Normal [facility] GRP A STREP (MOLECULAR)2022-05-23 16:43:00* Test Item Value Reference Range Interpretation Comme nts POCT GP A STREP (test code = 62827-1) negative Negative - Negative Lab Interpretation (test cod e = 98289-1) [facility] ([facility])2022-05-23 16:43:00* Test Item Value Reference Range Interpretation Comme nts POCT GP A STREP (test code = 51439-2) negative Negative - Negative Lab Interpretation (test cod e = 22522-1) Normal [facility]. METABOLIC PANEL (32013)2022-03-21 07:04:30* Test Item Value Reference Range Interpretation Comme nts NA (test code = 6891244804) 140 mmol/L 135-145 K (test code = 1477206026) 3.9 mmol/L 3.5-5 CL (test code = 8818530905) 102 mmol/L 98-108 CO2 TOTAL (test code = 9314741345) 26 mmol/L 23-31 AGAP (test code = 4544942085) 2-16 BUN (test code = 7335879716) 10 mg/dL 7-23 GLUCOSE (test code = 7194889444) 100 mg/dL 70-110 CREATININE (test code = 1932908868) 0.56 mg/dL 0.5-1.04 TOTAL BILI (test code = 9344616272) 0.4 mg/dL 0.1-1.1 CALCIUM (test code = 2866999939) 10.1 mg/dL 8.6-10.6 T PROTEIN (test code = 0387678380) 7.5 g/dL 6.3-8.2 ALBUMIN (test code = 2444882666) 5.8 g/dL 3.5-5 H ALK PHOS (test code = 9185930688) 66 U/L 34-122 ALTv (test code = 1742-6) 12 U/L 5-35 AST(SGOT) (test code = 9898655384) 21 U/L 13-40 MITESH (test code = [...] imaging tests). Lab Interpretation (test code = 23113-3) [facility]normal [facility] WITH [id number] 06:52:47* Test Item Value Reference Range Interpretation Comme nts WBC (test code = 6690-2) See_Comment [EventMama] The system which generated this result transmitted reference range: 4.50 - 13.50 10*3/?L. The reference range was not used to interpret this result as normal/abnormal. RBC (test code = 789-8) See_Comment [EventMama] The system which generated this result transmitted [...] 33.6 g/dL 32-36 RDW-SD (test code = 20051-3) 41.7 fL 38.5-49 RDW-CV (test code = 788-0) 12.8 % 11.5-14 PLT (test code = 777-3) See_Comment [Automated messa ge] The system which generated this result transmitted reference range: 135 - 361 10*3/?L. The reference range was not used to interpret this result as normal/abnormal. MPV (test code = 94741-0) 10.3 fL 9.4-13.3 NRBC/100 WBC (test code = 9260256341) See_Comment [Automated me ssage] The system which generated this result transmitted reference range: 0.0 - 10.0 /100 WBCs. The reference range was not used to interpret this result as normal/abnormal. NRBC x10^3 (test code = 5933047073) See_Comment [Automated me ssage] The system which generated this result transmitted reference range: 10*3/?L. The reference range was not used to interpret this result as normal/abnormal. GRAN MAT (NEUT) % (test code = 770-8) 46.3 % IMM GRAN % (test code = 4966096719) 0.20 % LYMPH % (test code = 736-9) 47.6 % MONO % (test code = 5905-5) 5.4 % EOS % (test code = 713-8) 0.2 % BASO % (test code = 706-2) 0.3 % GRAN MAT x10^3(ANC) (test code = 5092512363) 3.02 10*3/uL 1.5-10.3 IMM GRAN x10^3 (test code = 1877309741) 0-0.06 LYMPH x10^3 (test code = 731-0) 3.10 10*3/uL 0.7-7.4 MONO x10^3 (test code = 742-7) 0.35 10*3/uL 0-0.5 EOS x10^3 (test code = 711-2) 0-0.4 BASO x10^3 (test code = 704-7) 0-0.1 [id number] 04:59:00* Test Item Value Reference Range Interpretation Comme nts POCT PREG (test code = 1605) Negative On board controls acceptable with C Line (test code = 3574) Positive POCT PREG LOT # (test code = 3575) [id number] POCT PREG TEST DATE ( test code = 3576) 06/30/2023 Lab Interpretation (test cod e = 85878-6) Normal [facility], [id number] 03:49:03* Test Item Value Reference Range Interpretation Comme nts IGE (test code = 62094-0) <2 See_Comment REFERENCE INTERV AL: Immunoglobulin E, Serum Access complete set of age- and/or gender-specific reference intervals for this test in the [facility] Test Directory ([employer]).Performed By: [employer] [place] [id number] Director: Jessica Mitchell MD [Automated message] The system which generated this result transmitted reference range: <=537. The reference range was not used to interpret this result as normal/abnormal. [facility] [id number] 15:45:31 * Test Item Value Reference Range Interpretation Comme nts IgA (test code = 8006236355) 16 mg/dL 70-312 L IgG (test code = 2318272458) 425 mg/dL 636-1600 L IgM (test code = 5931575587) 22 mg/dL 56-352 L Lab Interpretation (test cod e = 63849-5) Abnormal [facility]"
[2024-08-19] MEDS ORDERED: ACETAMINOPHEN 500 MG TAB ONE (14:52)
[2024-08-19] MEDS ORDERED: IBUPROFEN 400 MG TAB ONE (14:52)
[2024-08-19 15:37] LABS: SARS-CoV-2 Antigen CONTROL BLUE LINE VIS/BG OK; SARS-CoV-2 Antigen Rapid Res Negative (Negative)
[2024-08-19 16:18] LABS: Specific Gravity > 1.030 (1.005-1.030); Urine Bacteria 20-50 /HPF (<20); Urine Bilirubin NEGATIVE (Negative); Urine Blood Negative (Negative); Urine Clarity Extremely Turbid (Clear); Urine Color Yellow (Yellow); Urine Crystals Unidentified Few /HPF (None Seen); Urine Culture Reflex Order NOT NEEDED; Urine Glucose NEGATIVE (Negative); Urine Ketones NEGATIVE (Negative); Urine Micro Reflex YN NO BILL MICROSCOPIC; Urine Mucus 4+ /HPF (None Seen); Urine Nitrite NEGATIVE (Negative); Urine Protein 1+ (Negative); Urine Urobilinogen 1+ (Normal); Urine WBC None Seen /HPF (<5)
[2024-08-19 16:19] LABS: Specific Gravity > 1.030 (1.005-1.030)
--- NOTE | 2024-08-19 16:28 | EDPHYS ---
Physician Documentation [facility] Name: Ana Paula Nielson Age: 18 yrs Sex: Female : 2005 Arrival Date: 08/19/2024 Time: 14:02 Bed 20 Private MD: ED Physician Tapan Vo HPI: 08/19 14:33 This 18 yrs old Female presents to ER via Ambulatory with complaints of Fever.ec2 14:33 Patient arrives today for fever. Patient having 1 day of symptoms. Reports has been ec2 having fevers and feeling generally unwell. Reports no vomiting or diarrhea. Reports increased fatigue, denies shortness of breath. Reports no urinary complaints, denies any sore throat. Reports sick contact with cough symptoms.. 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 - Infectious Disease History:: Denies. - Social history:: Smoking status: unknown. ROS: 14:33 Constitutional: as per hpi ec2 Exam: 14:33 Constitutional: GEN: NAD Head: atraumatic Eyes: EOMI Ears: External ears are ec2 normal. CV: regular rate LUNGS: no respiratory distress, no wheezes or rales or rhonchi ABD: non-distended, soft, nontender, not guarding, not rigid SKIN: no evidence of rashes MSK: no evidence of trauma Vital Signs: 14:18 BP 96 / 66; Pulse 100; Resp 18; Temp 99.2(O); Pulse Ox 96% on R/A; Weight 43.23 kg; cm10 Height 5 ft. 3 in. ; Pain 0/10; 15:00 BP 98 / 72; Pulse 90; Resp 16; Pulse Ox 100% ; me1 16:00 BP 103 / 65; Pulse 100; Resp 14; Pulse Ox 97% ; me1 16:34 BP 98 / 67; Pulse 89; Resp 15; Temp 98.6; Pulse Ox 100% ; me1 14:18 Body Mass Index 16.88 (43.23 kg, 160.02 cm) - Percentile 1.2 % cm10 14:18 Pain Scale: Adult cm10 MDM: 14:24 Medical Screening Exam initiated ec2 14:33 Data reviewed: vital signs, nurses notes. ED course: Patient arrives today for ec2 evaluation of fever. Examination is unrevealing. Will obtain viral swabs, urine studies as well as strep swab. Will treat the patient with Tylenol and ibuprofen. Suspect viral infection.. 08/19 14:33 Order name: Influenza Screen (a \T\ B); Complete Time: 15:38 ec2 08/19 14:33 Order name: SARS RAPID; Complete Time: 15:38 ec2 08/19 14:33 Order name: Strep ec2 08/19 14:33 Order name: UAM; Complete Time: 16:27 ec2 08/19 14:33 Order name: Test, Urine; Complete Time: 16:27 ec2 08/19 15:42 Order name: Throat Culture EDMS 08/19 16:02 Order name: Misc. Order: urine please; Complete Time: 16:08 ec2 Administered Medications: 15:03 Drug: Acetaminophen PO 1000 mg PO once Route: PO; me1 15:46 Follow up: Response: No adverse reaction; Pain is decreased me1 15:03 Drug: Ibuprofen PO 800 mg PO once Route: PO; me1 15:46 Follow up: Response: No adverse reaction; Pain is decreased me1 16:34 Drug: Cephalexin PO 500 mg PO once Route: PO; me1 16:34 Follow up: Response: No adverse reaction me1 Disposition Summary: 08/19/24 16:27 Discharge Ordered Notes: Location: Home ec2 Condition: Stable ec2 Diagnosis - Viral infection, unspecified ec2 - UTI/ Urinary tract infection, site not specified ec2 Followup: ec2 - With: Private Physician - When: - Reason: Recheck today's complaints Discharge Instructions: - Discharge Summary Sheet ec2 - Viral Illness, Adult ec2 Forms: - Work release form ec2 - Medication Reconciliation Form ec2 - Antibiotic Education ec2 - Prescription Opioid Use ec2 - Patient Portal Instructions ec2 - Leadership Thank You Letter ec2 Prescriptions: - Cephalexin 500 mg Oral capsule - take 1 capsule ORAL route every 12 hours for 5 days; 10 capsule; Refills: 0, ec2 Product Selection Permitted Signatures: Dispatcher [employer] EDRaya Machado RN RN cm10 Sarahi Dawkins RN RN me1 Tapan Vo MD MD ec2 Corrections: (The following items were deleted from the chart) 14:34 14:34 Influenza Screen (A \T\ B)+BA.LAB.BRZ ordered. EDMS EDMS 14:34 14:34 SARS-COV-2 Antigen Rapid+I.LAB.BRZ ordered. EDMS EDMS 14:34 14:34 Group A Streptococcus Rapid Sc+BA.LAB.BRZ ordered. EDMS EDMS 14:34 14:34 Urinalysis W/Microscopic+U.LAB.BRZ ordered. EDMS EDMS 14:34 14:34 Test, Urine+UC.LAB.BRZ ordered. EDMS EDMS
--- NOTE | 2024-08-19 16:28 | ER ---
Nurse's Notes [facility] Name: Ana Paula Nielson Age: 18 yrs Sex: Female : 2005 Arrival Date: 08/19/2024 Time: 14:02 Bed 20 Private MD: Diagnosis: Viral infection, unspecified;UTI/ Urinary tract infection, site not specified Presentation: 08/19 14:18 Chief complaint: Patient states: fever and not feeling well onset yesterday. cm10 Coronavirus screen: Client denies travel out of the [place] in the last 14 days. Ebola Screen: Patient denies travel to an Ebola-affected area in the 21 days before illness onset. No symptoms or risks identified at this time. Initial Sepsis Screen: Does the patient meet any 2 criteria? HR > 90 bpm. Does the patient have a suspected source of infection? No. Patient's initial sepsis screen is negative. Risk Assessment: Do you want to hurt yourself or someone else? Patient reports no desire to harm self or others. Onset of symptoms was August 19, 2024. 14:18 Method Of Arrival: Ambulatory 10 14:18 Acuity: GERARD 4 cm10 Triage Assessment: 14:20 General: Appears in no apparent distress. uncomfortable, Behavior is calm, cooperative. cm10 Neuro: No deficits noted. Level of Consciousness is awake, alert, obeys commands, Oriented to person, place, time, situation, Appropriate for age. Respiratory: No deficits noted. Airway is patent Respiratory effort is even, unlabored, Respiratory pattern is regular, symmetrical. 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 - Infectious Disease History:: Denies. - Social history:: Smoking status: unknown. Screenin:25 [facility] ED Fall Risk Assessment (Adult) History of falling in the last 3 months, me1 including since admission No falls in past 3 months (0 pts) Confusion or Disorientation No (0 pts) Intoxicated or Sedated No (0 pts) Impaired Gait No (0 pts) Mobility Assist Device Used No (0 pt) Altered Elimination No (0 pt) Score/Fall Risk Level 0 - 2 = Low Risk Maintained a safe environment, Provided non-skid footwear, Hourly rounding (assess needs \T\ fall precautionary measures) done. Abuse screen: Denies threats or abuse. Nutritional screening: No deficits noted. Tuberculosis screening: No symptoms or risk factors identified. Assessment: 14:25 General: Appears ill, unkempt, well developed, well nourished, Behavior is calm, me1 cooperative, appropriate for age, Reports fever for 12-24 hours, feeling ill for 12-24 hours, fatigue for 12-24 hours. Pain: Complains of pain in generalized Pain does not radiate. Pain currently is 6 out of 10 on a pain scale. Quality of pain is described as aching, Pain began 1 day ago. Is continuous. Neuro: Level of Consciousness is awake, alert, obeys commands, Oriented to person, place, time, situation, Appropriate for age. Cardiovascular: Patient's skin is warm and dry. Respiratory: Airway is patent Respiratory effort is even, unlabored, Respiratory pattern is regular, symmetrical. GI: No signs and/or symptoms were reported involving the gastrointestinal system. : No signs and/or symptoms were reported regarding the genitourinary system. EENT: No signs and/or symptoms were reported regarding the EENT system. Derm: Skin is intact, is healthy with good turgor, Skin is pink, warm \T\ dry. Musculoskeletal: No signs and/or symptoms reported regarding the musculoskeletal system. Vital Signs: 14:18 BP 96 / 66; Pulse 100; Resp 18; Temp 99.2(O); Pulse Ox 96% on R/A; Weight 43.23 kg; cm10 Height 5 ft. 3 in. ; Pain 0/10; 15:00 BP 98 / 72; Pulse 90; Resp 16; Pulse Ox 100% ; me1 16:00 BP 103 / 65; Pulse 100; Resp 14; Pulse Ox 97% ; me1 16:34 BP 98 / 67; Pulse 89; Resp 15; Temp 98.6; Pulse Ox 100% ; me1 14:18 Body Mass Index 16.88 (43.23 kg, 160.02 cm) - Percentile 1.2 % cm10 14:18 Pain Scale: Adult cm10 ED Course: 14:07 Patient arrived in ED. ra3 14:07 Tapan Vo MD is Attending Physician. ec2 14:18 Triage completed. cm10 14:20 Arm band placed on right wrist. Patient placed in an exam room, on a stretcher, on cm10 pulse oximetry. 14:24 Sarahi Dawkins RN is Primary Nurse. me1 14:25 Patient has correct armband on for positive identification. Bed in low position. Call me1 light in reach. Side rails up X2. Provided Education on: POC. Verbalized understanding.. Client placed on continuous cardiac and pulse oximetry monitoring. NIBP monitoring applied. Pulse ox on. NIBP on. 14:25 No provider procedures requiring assistance completed. Patient did not have IV access me1 during this emergency room visit. 14:50 Strep Sent. me1 14:50 SARS RAPID Sent. me1 14:50 Influenza Screen (a \T\ B) Sent. me1 14:50 COVID swab sent to lab. Flu and/or RSV swab sent to lab. Strep swab sent to lab. me1 15:46 Test, Urine Sent. me1 15:46 UAM Sent. me1 15:46 Urine collected: clean catch specimen, cloudy, tea colored. me1 Administered Medications: 15:03 Drug: Acetaminophen PO 1000 mg PO once Route: PO; me1 15:46 Follow up: Response: No adverse reaction; Pain is decreased me1 15:03 Drug: Ibuprofen PO 800 mg PO once Route: PO; me1 15:46 Follow up: Response: No adverse reaction; Pain is decreased me1 16:34 Drug: Cephalexin PO 500 mg PO once Route: PO; me1 16:34 Follow up: Response: No adverse reaction me1 Medication: 14:25 VIS not applicable for this client. me1 Outcome: 16:27 Discharge ordered by . ec2 16:38 Discharged to home ambulatory, me1 16:38 Discharged to home ambulatory, with family, 16:38 Condition: stable 16:38 Discharge instructions given to patient, family, Instructed on discharge instructions, follow up and referral plans. medication usage, Demonstrated understanding of instructions, follow-up care, medications, Prescriptions given X 1, 16:38 Patient left the ED. me1 Signatures: Raya Drummond RN RN 10 Sarahi Dawkins RN RN me1 Tapan Vo MD MD ec2 Lakshmi Simon ra3
[2024-08-19] MEDS ORDERED: CEPHALEXIN 250 MG CAP ONE (16:31)
[2024-08-19 16:49] VITALS: BP 98/67; TEMP 98.6; O2SAT 100
== END 2024-08-19 16:38 | disposition home or self-care (01) ==
LOC: ER 14:02
DX: N39.0 Urinary tract infection, site not specified (principal); B34.9 Viral infection, unspecified; F41.9 Anxiety disorder, unspecified; F32.A Depression, unspecified; Z11.52 Encounter for screening for COVID-19
CPT/HCPCS: 36415; 81001; 81025; 87070; 87081; 87804; 87811; 99284

== ENCOUNTER 2024-08-21 07:11 | Emergency (ER) | payer SELFPAY ==
--- OUTSIDE RECORDS SUMMARY | 2024-08-21 07:22 | XMS REPORT | Continuity of Care Document ---
Author Name Unknown Address [address] 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 Name Role Phone IVONNE NAYAK Primary Care Physician Sushma Zuluaga Attending Clinician [phone] SUSHMA SESAY Attending Clinician UnavailIVONNE Mondragon Attending Clinician UnavailASHLEY Polk Attending Clinician Unavailable GREG PATEL Attending Clinician Unavailable GREG PATEL Attending Clinician Unavailable Ivonne Nayak PA-C Attending Clinician [phone] IVY TAVARES Attending Clinician CASIE Schuster Attending Clinician Unavailable CASIE ONEIL Attending Clinician Unavailable Simona Paz Attending Clinician Ivonne Escobar PA-C Attending Clinician [phone] Doctor Unassigned, Bouse Attending Clinician U Ivy Oglesby MD Attending Clinician + [phone] Kadi Romero MD Attending Clinician [phone] KADI ROMERO Attending Clinician UnavailJanny Lincoln LMSW Attending Clinician [phone] Sushma Thornton Attending Clinician [phone] ALEJO LLOYD Attending Clinici an Unavailable Alejo Lloyd MD Attending Clin ician RICARDO SEVERINO Attending Clinician Unavailable Mere PACRicardo Attending Clinician [phone] Asael Lugo MD, Hanna Attending Clinician + [phone] Christiano Hartman MD Attending Clinician [phone] CHRISTIANO HARTMAN Attending Clinician Unavailable YENI REINA Attending Clinician Unavail able Yeni Reina MD Attending Clinician [phone] Zain Rosas MD Attending Clinician [phone] ZAIN ROSAS Attending Clinician Unavailable JENNIFER ROCHE Attending Clinician Unavailab Jennifer Persaud DO Attending Clinician [phone] Jessica ORTEGA Attending Clinician Unavailable Jessica Jarvis Attending Clinician [phone] Therapy, [facility] Cov[facility] Infusion Attending Clinician Unavailable Harman Escalona DO Attending Clinician [phone] HARMAN ESCALONA Attending Clinician Unavailable YORDAN SELF Attending Clinician Lesvia altman [facility] Attending Clinician U Yordan Crandall MD Attending Clinician + SEBASTIEN SOLANO Attending Clinician Unavailable Elizabeth MANUEL, Claudia Dowell Attending Clinician Nurse, Jazz Bucio Attending Clinician Unavailable CHEN SHIELDS Attending Clinician Unavailable Chen Shields MD Attending Clinician [phone] Jeison Farrell Attending Clinician [phone] CHRISTIANO DISLA Attending Clinician Unavailable Christiano Franklin Attending Clinician [phone] KADI ROMERO Admitting Clinician UnavailCHEN Mclaughlin Admitting Clinician Unavailable CHRISTIANO DISLA Admitting Clinician Unavailable Payers Payer Name Policy Type Policy Number Effective Date Expirati on Date Source [employer] MEDICA[employer] [id number] 2015 00:00:00 Problems Condition Name Condition Details Condition Category Status Onset Date Resolution Date Last Treatment Date Treating Clinician Comments Source Dysmenorrh ea Dysmenorrh ea Disease Active 3-12 00:00: 00 [facility] Counseling for initiation of control method Counseling for initiation of control method Disease Active 3-12 00:00: 00 [facility] Weight loss Weight loss Disease Active 1-11 00:00: 00 [facility] Recurrent infections Recurrent infections Disease Active 1-11 00:00: 00 [facility] Recurrent infections Recurrent infections Disease Active 1-11 00:00: 00 [facility] 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 02-14 00:00: 00 [facility] 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 02-14 00:00: 00 [facility] Allergies, Adverse Reactions, Alerts Allergy Name Allergy Type Status Severity Reaction(s) Onset Date Inactive Date Treating Clinician Comments Source NO KNOWN ALLERGIE S Drug Class Active [facility] Social History Social Habit Start Date Stop Date Quantity Comments Source Gender identity [facility] Sexual orientation U [facility] Alcoholic beverage intake 2024-05-10 00:00:00 2024-05-10 00:00:00 Lifetime non-drinker (finding) [facility] History of Social function 2024-02-15 00:00:00 2024-02-15 00:00:00 [facility] Alcohol intake 2023-10-21 00:00:00 2023-10-21 00:00:00 Lifetime non-drinker (finding) [facility] Tobacco use and exposure 2023-06-08 00:00:00 2023-06-08 00:00:00 User of smokeless tobacco [facility] Tobacco Comment 2023-06-08 00:00:00 2023-06-08 00:00:00 Vapes [facility] Exposure to SARS-CoV-2 (event) 2023-01-18 00:00:00 2023-01-28 14:47:00 Not sure [facility] Sex assigned at 2004 00:00:00 2005 00:00:00 [facility] Smoking Status Start Date Stop Date Source Never smoked tobacco [facility] Medications Ordered Medication Name Filled Medication Name Start Date Stop Date Current Medication? Ordering Clinician Indication Dosage Frequency Signature (SIG) Comments Components Source cetirizine (ZYRTEC) 10 mg tablet 2023-08 00:00: 00 09-11 05:59 :00 Yes [id number] 10mg Take 1 tablet by mouth in the morning for 30 days. [facility] fluticasone propionate 50 mcg/actuati on nasal spray 2023-08 00:00: 00 09-11 05:59 :00 Yes [id number] 1{spray } Use 1 [place] in each nostril in the morning for 30 days. [facility] FLUoxetine 10 mg capsule 05-10 00:00: 00 Yes [id number] Take one capsule once at day for two weeks then increase to two tabs po once a day [facility] norgestimat e-ethinyl estradioL 0.25-35 mg-mcg per tablet 02-25 00:00: 00 Yes [id number] 1{tbl} Take 1 tablet by mouth in the morning. [facility] traZODone 50 mg tablet 02-14 00:00: 00 Yes [id number] 50mg Take 1 tablet by mouth at bedtime. [facility] amoxicillin -pot clavulanate 600-42.9 mg/5 mL suspension 10-21 00:00: 00 02-14 00:00 :00 No [id number] Give 7.5 ml po bid for 10 days [facility] famotidine 20 mg tablet 2022-08 00:00: 00 Yes 20mg Take 1 tablet by mouth in the morning and 1 tablet in the evening. [facility] ondansetron 8 mg disintegrat ing tablet 2022-08 00:00: 00 Yes [id number] 8mg Take 1 tablet by mouth every 8 (eight) hours as needed for Nausea and Vomiting (N/V). [facility] traZODone 50 mg tablet 2022-08- 00:00: 00 02-14 00:00 :00 No [id number] 50mg Take 1 tablet by mouth at bedtime. [facility] azithromyci n (ZITHROMAX) 200 mg/5 mL suspension 2022-08 0- 00:00: 00 07-22 00:00 :00 No [id number] 12.5 ml po day 1 then 6.25 ml po days 2-5 [facility] hydrOXYzine 10 mg tablet 03-30 00:00: 00 06-08 00:00 :00 No [id number] Take 1 to 2 po qhs for sleep and anxiety [facility] amoxicillin -pot clavulanate 600-42.9 mg/5 mL suspension - 00:00: 00 06-08 00:00 :00 No [id number] Take 10 ml po bid for 10 days [facility] FLUOXETINE 20 mg capsule - 00:00: 00 03-30 00:00 :00 No [id number] TAKE ONE (1) CAPSULE(S) BY MOUTH EVERY MORNING. [facility] pedi multivit no.140-iron fum (KIDS MULTIVITAMI N COMPLETE) 18 mg iron Chew -20 00:00: 00 Yes [id number] 1{tbl} Take 1 tablet by mouth in the morning. [facility] fluticasone propionate 50 mcg/actuati on nasal spray -20 00:00: 00 Yes [id number] 1{spray } Use 1 [place] in each nostril in the morning. [facility] pedi multivit no.140-iron fum (KIDS MULTIVITAMI N COMPLETE) 18 mg iron Chew -20 00:00: 00 Yes [id number] 1{tbl} Take 1 tablet by mouth in the morning. [facility] cetirizine 10 mg tablet -20 00:00: 00 03-30 00:00 :00 No [id number] 10mg Take 1 tablet by mouth in the morning. [facility] azithromyci n 250 mg tablet 12-18 00:00: 00 03-30 00:00 :00 No [id number] 250mg Take 1 tablet by mouth in the morning. [facility] FLUoxetine 20 mg capsule 12-18 00:00: 00 01-16 00:00 :00 No 20mg Take 1 capsule by mouth in the morning. [facility] ibuprofen (IBU) tablet 400 mg 12-02 20:00: 00 12-02 19:16 :00 No [id number] 400mg [facility] dextrometho rphan-guaif enesin 10-100 mg/5 mL solution 2021-08 0 00:00: 00 Yes [id number] 10mL Take 10 mL by mouth every 6 (six) hours as needed for Cough. [facility] cetirizine 10 mg tablet 2021-08 00:00: 00 12-18 00:00 :00 No [id number] 10mg Take 1 tablet by mouth in the morning. [facility] fluticasone propionate 50 mcg/actuati on nasal spray 2021-08 00:00: 00 12-18 00:00 :00 No [id number] 1{spray } Use 1 [place] in each nostril in the morning. [facility] azithromyci n (ZITHROMAX Z-MILENA) 250 mg tablet 2021-08 0 00:00: 00 12-18 00:00 :00 No [id number] 250mg Z-Milena = 500 mg day 1, then 250 mg days 2 to 5. [facility] Immune Globulin, Human,, IGG, (HIZENTRA) 4 gram/20 mL (20 %) subcutaneou s infusion RTU 9 00:00: 00 Yes [id number] 8g inject 40 mL under the skin every 2 (two) weeks. [facility] pedi multivit no.140-iron fum (KIDS MULTIVITAMI N COMPLETE) 18 mg iron Chew 05-23 00:00: 00 12-18 00:00 :00 No [id number] 1{tbl} Take 1 tablet by mouth daily. [facility] cefdinir 125 mg/5 mL suspension 05-23 00:00: 00 06-07 04:59 :00 No [id number] 250mg Take 10 mL by mouth in the morning and 10 mL in the evening. Do all this for 14 days. [facility] ibuprofen (IBU) tablet 600 mg 03-21 05:30: 00 03-21 05:18 :00 No 600mg 600 mg, Oral, ONCE, 1 dose, On Thu03/21/22 at 0030, AAKASH [facility] Immune Globulin, Human,, IGG, (HIZENTRA) 4 gram/20 mL (20 %) subcutaneou s infusion RTU 02-24 00:00: 00 05-29 00:00 :00 No [id number] 8g inject 40 mL under the skin every 2 (two) weeks. [facility] amoxicillin 400 mg/5 mL oral suspension 01-01 00:00: 00 02-24 00:00 :00 No [id number] Give 12.5 ml PO BID for 10 days [facility] benzonatate (TESSALON PERLES) 100 mg capsule 01-01 00:00: 02-24 00:00 :00 No [id number] 100mg Take 1 capsule by mouth every 8 (eight) hours as needed for Cough. [facility] albuterol (PROAIR HFA) 90 mcg/actuati on inhaler 11-29 00:00: 00 Yes [id number] 2{puff} Inhale 2 Puffs every 6 (six) hours as needed for Wheezing or Shortness of Breath. [facility] fluticasone propionate 44 mcg/actuati on inhaler 11-29 00:00: 00 Yes [id number] 2{puff} Inhale 2 Puffs 2 (two) times daily. [facility] cetirizine 10 mg tablet 11-29 00:00: 00 06-16 00:00 :00 No [id number] 10mg Take 1 tablet by mouth daily. [facility] Immunizations Ordered Immunization Name Filled Immunization Name Date Status Comments Source Influenza Virus Vaccine Quad .5 mL IM 6+ MO (FLUZONE/FLULAVAL/FL UARIX) 2021-07-01 00:00:00 Completed Influenza Virus Vaccine Quad .5 mL IM 6+ MO 2021-07-01 00:00:00 Completed [facility] Influenza Virus Vaccine Quad .5 mL IM 6+ MO 2021-07-01 00:00:00 Completed [facility] Influenza Virus Vaccine Quad .5 mL IM 6+ MO 2021-07-01 00:00:00 Completed [facility] Influenza Virus Vaccine Quad .5 mL IM 6+ MO 2021-07-01 00:00:00 Completed [facility] Influenza Virus Vaccine Quad .5 mL IM 6+ MO 2021-07-01 00:00:00 Completed [facility] Influenza Virus Vaccine Quad .5 mL IM 6+ MO 2021-07-01 00:00:00 Completed [facility] Influenza Virus Vaccine Quad .5 mL IM 6+ MO 2021-07-01 00:00:00 Completed [facility] Influenza Virus Vaccine Quad .5 mL IM 6+ MO 2021-07-01 00:00:00 Completed [facility] Influenza Virus Vaccine Quad .5 mL IM 6+ MO 2021-07-01 00:00:00 Completed [facility] Influenza Virus Vaccine Quad .5 mL IM 6+ MO 2021-07-01 00:00:00 Completed [facility] Influenza Virus Vaccine Quad .5 mL IM 6+ MO 2021-07-01 00:00:00 Completed [facility] Influenza Virus Vaccine Quad .5 mL IM 6+ MO 2021-07-01 00:00:00 Completed [facility] Influenza Virus Vaccine Quad .5 mL IM 6+ MO 2021-07-01 00:00:00 Completed [facility] Influenza Virus Vaccine Quad .5 mL IM 6+ MO 2021-07-01 00:00:00 Completed [facility] Influenza Virus Vaccine Quad .5 mL IM 6+ MO 2021-07-01 00:00:00 Completed [facility] Influenza Virus Vaccine Quad .5 mL IM 6+ MO 2021-07-01 00:00:00 Completed [facility] Influenza Virus Vaccine Quad .5 mL IM 6+ MO 2021-07-01 00:00:00 Completed [facility] Influenza Virus Vaccine Quad .5 mL IM 6+ MO 2021-07-01 00:00:00 Completed [facility] Influenza Virus Vaccine Quad .5 mL IM 6+ MO 2021-07-01 00:00:00 Completed [facility] Influenza Virus Vaccine Quad .5 mL IM 6+ MO 2021-07-01 00:00:00 Completed [facility] Influenza Virus Vaccine Quad .5 mL IM 6+ MO 2021-07-01 00:00:00 Completed [facility] Influenza Virus Vaccine Quad .5 mL IM 6+ MO 2021-07-01 00:00:00 Completed [facility] Influenza Virus Vaccine Quad .5 mL IM 6+ MO 2021-07-01 00:00:00 Completed [facility] Influenza Virus Vaccine Quad .5 mL IM 6+ MO 2021-07-01 00:00:00 Completed [facility] Influenza Virus Vaccine Quad .5 mL IM 6+ MO 2021-07-01 00:00:00 Completed [facility] Influenza Virus Vaccine Quad .5 mL IM 6+ MO 2021-07-01 00:00:00 Completed [facility] Influenza Virus Vaccine Quad .5 mL IM 6+ MO 2021-07-01 00:00:00 Completed [facility] Influenza Virus Vaccine Quad .5 mL IM 6+ MO 2021-07-01 00:00:00 Completed [facility] Influenza Virus Vaccine Quad .5 mL IM 6+ MO 2021-07-01 00:00:00 Completed [facility] Influenza Virus Vaccine Quad .5 mL IM 6+ MO 2021-07-01 00:00:00 Completed [facility] Influenza Virus Vaccine Quad .5 mL IM 6+ MO 2021-07-01 00:00:00 Completed [facility] Influenza Virus Vaccine Quad .5 mL IM 6+ MO 2021-07-01 00:00:00 Completed [facility] Influenza Virus Vaccine Quad .5 mL IM 6+ MO (FLUZONE/FLULAVAL/FL UARIX) 2021-07-01 00:00:00 Completed [facility] Influenza Virus Vaccine Quad .5 mL IM 6+ MO (FLUZONE/FLULAVAL/FL UARIX) 2020-11-08 00:00:00 Completed [facility] Influenza Virus Vaccine Quad .5 mL IM 6+ MO 2020-11-08 00:00:00 Completed [facility] Influenza Virus Vaccine Quad .5 mL IM 6+ MO 2020-11-08 00:00:00 Completed [facility] Influenza Virus Vaccine Quad .5 mL IM 6+ MO 2020-11-08 00:00:00 Completed [facility] Influenza Virus Vaccine Quad .5 mL IM 6+ MO 2020-11-08 00:00:00 Completed [facility] Influenza Virus Vaccine Quad .5 mL IM 6+ MO 2020-11-08 00:00:00 Completed [facility] Influenza Virus Vaccine Quad .5 mL IM 6+ MO 2020-11-08 00:00:00 Completed [facility] Influenza Virus Vaccine Quad .5 mL IM 6+ MO 2020-11-08 00:00:00 Completed [facility] Influenza Virus Vaccine Quad .5 mL IM 6+ MO 2020-11-08 00:00:00 Completed [facility] Influenza Virus Vaccine Quad .5 mL IM 6+ MO 2020-11-08 00:00:00 Completed [facility] Influenza Virus Vaccine Quad .5 mL IM 6+ MO 2020-11-08 00:00:00 Completed [facility] Influenza Virus Vaccine Quad .5 mL IM 6+ MO 2020-11-08 00:00:00 Completed [facility] Influenza Virus Vaccine Quad .5 mL IM 6+ MO 2020-11-08 00:00:00 Completed [facility] Influenza Virus Vaccine Quad .5 mL IM 6+ MO 2020-11-08 00:00:00 Completed [facility] Influenza Virus Vaccine Quad .5 mL IM 6+ MO 2020-11-08 00:00:00 Completed [facility] Influenza Virus Vaccine Quad .5 mL IM 6+ MO 2020-11-08 00:00:00 Completed [facility] Influenza Virus Vaccine Quad .5 mL IM 6+ MO 2020-11-08 00:00:00 Completed [facility] Influenza Virus Vaccine Quad .5 mL IM 6+ MO 2020-11-08 00:00:00 Completed [facility] Influenza Virus Vaccine Quad .5 mL IM 6+ MO 2020-11-08 00:00:00 Completed [facility] Influenza Virus Vaccine Quad .5 mL IM 6+ MO 2020-11-08 00:00:00 Completed [facility] Influenza Virus Vaccine Quad .5 mL IM 6+ MO 2020-11-08 00:00:00 Completed [facility] Influenza Virus Vaccine Quad .5 mL IM 6+ MO 2020-11-08 00:00:00 Completed [facility] Influenza Virus Vaccine Quad .5 mL IM 6+ MO 2020-11-08 00:00:00 Completed [facility] Influenza Virus Vaccine Quad .5 mL IM 6+ MO 2020-11-08 00:00:00 Completed [facility] Influenza Virus Vaccine Quad .5 mL IM 6+ MO 2020-11-08 00:00:00 Completed [facility] Influenza Virus Vaccine Quad .5 mL IM 6+ MO 2020-11-08 00:00:00 Completed [facility] Influenza Virus Vaccine Quad .5 mL IM 6+ MO 2020-11-08 00:00:00 Completed [facility] Influenza Virus Vaccine Quad .5 mL IM 6+ MO 2020-11-08 00:00:00 Completed [facility] Influenza Virus Vaccine Quad .5 mL IM 6+ MO 2020-11-08 00:00:00 Completed [facility] Influenza Virus Vaccine Quad .5 mL IM 6+ MO 2020-11-08 00:00:00 Completed [facility] Influenza Virus Vaccine Quad .5 mL IM 6+ MO 2020-11-08 00:00:00 Completed [facility] Influenza Virus Vaccine Quad .5 mL IM 6+ MO 2020-11-08 00:00:00 Completed [facility] Influenza Virus Vaccine Quad .5 mL IM 6+ MO 2020-11-08 00:00:00 Completed [facility] Influenza Virus Vaccine Quad .5 mL IM 6+ MO (FLUZONE/FLULAVAL/FL UARIX) 2020-11-08 00:00:00 Completed [facility] Pneumococcal Polysaccharide, PPSV23 (PNEUMOVAX) 2020-09-24 00:00:00 Completed [facility] TDAP 2020-09-24 00:00:00 Completed [facility] Pneumococcal Polysaccharide, PPSV23 (PNEUMOVAX) 2020-09-24 00:00:00 Completed [facility] TDAP 2020-09-24 00:00:00 Completed [facility] Pneumococcal Polysaccharide, PPSV23 (PNEUMOVAX) 2020-09-24 00:00:00 Completed [facility] TDAP 2020-09-24 00:00:00 Completed [facility] Pneumococcal Polysaccharide, PPSV23 (PNEUMOVAX) 2020-09-24 00:00:00 Completed [facility] TDAP 2020-09-24 00:00:00 Completed [facility] Pneumococcal Polysaccharide, PPSV23 (PNEUMOVAX) 2020-09-24 00:00:00 Completed [facility] TDAP 2020-09-24 00:00:00 Completed [facility] Pneumococcal Polysaccharide, PPSV23 (PNEUMOVAX) 2020-09-24 00:00:00 Completed [facility] TDAP 2020-09-24 00:00:00 Completed [facility] Pneumococcal Polysaccharide, PPSV23 (PNEUMOVAX) 2020-09-24 00:00:00 Completed [facility] TDAP 2020-09-24 00:00:00 Completed [facility] Pneumococcal Polysaccharide, PPSV23 (PNEUMOVAX) 2020-09-24 00:00:00 Completed [facility] TDAP 2020-09-24 00:00:00 Completed [facility] Pneumococcal Polysaccharide, PPSV23 (PNEUMOVAX) 2020-09-24 00:00:00 Completed [facility] TDAP 2020-09-24 00:00:00 Completed [facility] Pneumococcal Polysaccharide, PPSV23 (PNEUMOVAX) 2020-09-24 00:00:00 Completed [facility] TDAP 2020-09-24 00:00:00 Completed [facility] Pneumococcal Polysaccharide, PPSV23 (PNEUMOVAX) 2020-09-24 00:00:00 Completed [facility] TDAP 2020-09-24 00:00:00 Completed [facility] Pneumococcal Polysaccharide, PPSV23 (PNEUMOVAX) 2020-09-24 00:00:00 Completed [facility] TDAP 2020-09-24 00:00:00 Completed [facility] Pneumococcal Polysaccharide, PPSV23 (PNEUMOVAX) 2020-09-24 00:00:00 Completed [facility] TDAP 2020-09-24 00:00:00 Completed [facility] Pneumococcal Polysaccharide, PPSV23 (PNEUMOVAX) 2020-09-24 00:00:00 Completed [facility] TDAP 2020-09-24 00:00:00 Completed [facility] Pneumococcal Polysaccharide, PPSV23 (PNEUMOVAX) 2020-09-24 00:00:00 Completed [facility] TDAP 2020-09-24 00:00:00 Completed [facility] Pneumococcal Polysaccharide, PPSV23 (PNEUMOVAX) 2020-09-24 00:00:00 Completed [facility] TDAP 2020-09-24 00:00:00 Completed Pneumococcal Polysaccharide, PPSV23 (PNEUMOVAX) 2020-09-24 00:00:00 Completed [facility] TDAP 2020-09-24 00:00:00 Completed [facility] Pneumococcal Polysaccharide, PPSV23 (PNEUMOVAX) 2020-09-24 00:00:00 Completed [facility] TDAP 2020-09-24 00:00:00 Completed [facility] Pneumococcal Polysaccharide, PPSV23 (PNEUMOVAX) 2020-09-24 00:00:00 Completed [facility] TDAP 2020-09-24 00:00:00 Completed [facility] Pneumococcal Polysaccharide, PPSV23 (PNEUMOVAX) 2020-09-24 00:00:00 Completed [facility] TDAP 2020-09-24 00:00:00 Completed [facility] Pneumococcal Polysaccharide, PPSV23 (PNEUMOVAX) 2020-09-24 00:00:00 Completed [facility] TDAP 2020-09-24 00:00:00 Completed [facility] Pneumococcal Polysaccharide, PPSV23 (PNEUMOVAX) 2020-09-24 00:00:00 Completed [facility] TDAP 2020-09-24 00:00:00 Completed [facility] Pneumococcal Polysaccharide, PPSV23 (PNEUMOVAX) 2020-09-24 00:00:00 Completed [facility] TDAP 2020-09-24 00:00:00 Completed [facility] Pneumococcal Polysaccharide, PPSV23 (PNEUMOVAX) 2020-09-24 00:00:00 Completed [facility] TDAP 2020-09-24 00:00:00 Completed [facility] Pneumococcal Polysaccharide, PPSV23 (PNEUMOVAX) 2020-09-24 00:00:00 Completed [facility] TDAP 2020-09-24 00:00:00 Completed [facility] Pneumococcal Polysaccharide, PPSV23 (PNEUMOVAX) 2020-09-24 00:00:00 Completed [facility] TDAP 2020-09-24 00:00:00 Completed [facility] Pneumococcal Polysaccharide, PPSV23 (PNEUMOVAX) 2020-09-24 00:00:00 Completed [facility] TDAP 2020-09-24 00:00:00 Completed [facility] Pneumococcal Polysaccharide, PPSV23 (PNEUMOVAX) 2020-09-24 00:00:00 Completed [facility] [facility] TDAP 2020-09-24 00:00:00 Completed [facility] Pneumococcal Polysaccharide, PPSV23 (PNEUMOVAX) 2020-09-24 00:00:00 Completed [facility] TDAP 2020-09-24 00:00:00 Completed [facility] Pneumococcal Polysaccharide, PPSV23 (PNEUMOVAX) 2020-09-24 00:00:00 Completed [facility] TDAP 2020-09-24 00:00:00 Completed [facility] Pneumococcal Polysaccharide, PPSV23 (PNEUMOVAX) 2020-09-24 00:00:00 Completed [facility] TDAP 2020-09-24 00:00:00 Completed [facility] Pneumococcal Polysaccharide, PPSV23 (PNEUMOVAX) 2020-09-24 00:00:00 Completed [facility] TDAP 2020-09-24 00:00:00 Completed [facility] Pneumococcal Polysaccharide, PPSV23 (PNEUMOVAX) 2020-09-24 00:00:00 Completed [facility] TDAP 2020-09-24 00:00:00 Completed [facility] Pneumococcal Polysaccharide, PPSV23 (PNEUMOVAX) 2020-09-24 00:00:00 Completed [facility] TDAP 2020-09-24 00:00:00 Completed [facility] Meningococcal Polysaccharide (groups A, C, Y and W-135) conjugate vaccine (MCV4P) 2020-09-10 00:00:00 Completed [facility] Meningococcal Polysaccharide (groups A, C, Y and W-135) conjugate vaccine (MCV4P) 2020-09-10 00:00:00 Completed [facility] Meningococcal Polysaccharide (groups A, C, Y and W-135) conjugate vaccine (MCV4P) 2020-09-10 00:00:00 Completed [facility] Meningococcal Polysaccharide (groups A, C, Y and W-135) conjugate vaccine (MCV4P) 2020-09-10 00:00:00 Completed [facility] Meningococcal Polysaccharide (groups A, C, Y and W-135) conjugate vaccine (MCV4P) 2020-09-10 00:00:00 Completed [facility] Meningococcal Polysaccharide (groups A, C, Y and W-135) conjugate vaccine (MCV4P) 2020-09-10 00:00:00 Completed [facility] Meningococcal Polysaccharide (groups A, C, Y and W-135) conjugate vaccine (MCV4P) 2020-09-10 00:00:00 Completed [facility] Meningococcal Polysaccharide (groups A, C, Y and W-135) conjugate vaccine (MCV4P) 2020-09-10 00:00:00 Completed [facility] Meningococcal Polysaccharide (groups A, C, Y and W-135) conjugate vaccine (MCV4P) 2020-09-10 00:00:00 Completed [facility] Meningococcal Polysaccharide (groups A, C, Y and W-135) conjugate vaccine (MCV4P) 2020-09-10 00:00:00 Completed [facility] Meningococcal Polysaccharide (groups A, C, Y and W-135) conjugate vaccine (MCV4P) 2020-09-10 00:00:00 Completed [facility] Meningococcal Polysaccharide (groups A, C, Y and W-135) conjugate vaccine (MCV4P) 2020-09-10 00:00:00 Completed [facility] Meningococcal Polysaccharide (groups A, C, Y and W-135) conjugate vaccine (MCV4P) 2020-09-10 00:00:00 Completed [facility] Meningococcal Polysaccharide (groups A, C, Y and W-135) conjugate vaccine (MCV4P) 2020-09-10 00:00:00 Completed [facility] Meningococcal Polysaccharide (groups A, C, Y and W-135) conjugate vaccine (MCV4P) 2020-09-10 00:00:00 Completed [facility] Meningococcal Polysaccharide (groups A, C, Y and W-135) conjugate vaccine (MCV4P) 2020-09-10 00:00:00 Completed [facility] Meningococcal Polysaccharide (groups A, C, Y and W-135) conjugate vaccine (MCV4P) 2020-09-10 00:00:00 Completed [facility] Meningococcal Polysaccharide (groups A, C, Y and W-135) conjugate vaccine (MCV4P) 2020-09-10 00:00:00 Completed [facility] Meningococcal Polysaccharide (groups A, C, Y and W-135) conjugate vaccine (MCV4P) 2020-09-10 00:00:00 Completed [facility] Meningococcal Polysaccharide (groups A, C, Y and W-135) conjugate vaccine (MCV4P) 2020-09-10 00:00:00 Completed [facility] Meningococcal Polysaccharide (groups A, C, Y and W-135) conjugate vaccine (MCV4P) 2020-09-10 00:00:00 Completed [facility] Meningococcal Polysaccharide (groups A, C, Y and W-135) conjugate vaccine (MCV4P) 2020-09-10 00:00:00 Completed [facility] Meningococcal Polysaccharide (groups A, C, Y and W-135) conjugate vaccine (MCV4P) 2020-09-10 00:00:00 Completed [facility] Meningococcal Polysaccharide (groups A, C, Y and W-135) conjugate vaccine (MCV4P) 2020-09-10 00:00:00 Completed [facility] Meningococcal Polysaccharide (groups A, C, Y and W-135) conjugate vaccine (MCV4P) 2020-09-10 00:00:00 Completed [facility] Meningococcal Polysaccharide (groups A, C, Y and W-135) conjugate vaccine (MCV4P) 2020-09-10 00:00:00 Completed [facility] Meningococcal Polysaccharide (groups A, C, Y and W-135) conjugate vaccine (MCV4P) 2020-09-10 00:00:00 Completed [facility] Meningococcal Polysaccharide (groups A, C, Y and W-135) conjugate vaccine (MCV4P) 2020-09-10 00:00:00 Completed [facility] Meningococcal Polysaccharide (groups A, C, Y and W-135) conjugate vaccine (MCV4P) 2020-09-10 00:00:00 Completed [facility] Meningococcal Polysaccharide (groups A, C, Y and W-135) conjugate vaccine (MCV4P) 2020-09-10 00:00:00 Completed [facility] Meningococcal Polysaccharide (groups A, C, Y and W-135) conjugate vaccine (MCV4P) 2020-09-10 00:00:00 Completed [facility] Meningococcal Polysaccharide (groups A, C, Y and W-135) conjugate vaccine (MCV4P) 2020-09-10 00:00:00 Completed [facility] Meningococcal Polysaccharide (groups A, C, Y and W-135) conjugate vaccine (MCV4P) 2020-09-10 00:00:00 Completed [facility] Meningococcal Polysaccharide (groups A, C, Y and W-135) conjugate vaccine (MCV4P) 2020-09-10 00:00:00 Completed [facility] HPV9 2020-08-21 00:00:00 Completed HPV9 2020-08-21 00:00:00 Completed [facility] HPV9 2020-08-21 00:00:00 Completed [facility] HPV9 2020-08-21 00:00:00 Completed [facility] HPV9 2020-08-21 00:00:00 Completed [facility] HPV9 2020-08-21 00:00:00 Completed [facility] HPV9 2020-08-21 00:00:00 Completed [facility] HPV9 2020-08-21 00:00:00 Completed [facility] HPV9 2020-08-21 00:00:00 Completed [facility] HPV9 2020-08-21 00:00:00 Completed [facility] HPV9 2020-08-21 00:00:00 Completed [facility] HPV9 2020-08-21 00:00:00 Completed [facility] HPV9 2020-08-21 00:00:00 Completed [facility] HPV9 2020-08-21 00:00:00 Completed [facility] HPV9 2020-08-21 00:00:00 Completed [facility] HPV9 2020-08-21 00:00:00 Completed [facility] HPV9 2020-08-21 00:00:00 Completed [facility] HPV9 2020-08-21 00:00:00 Completed [facility] HPV9 2020-08-21 00:00:00 Completed [facility] HPV9 2020-08-21 00:00:00 Completed [facility] HPV9 2020-08-21 00:00:00 Completed [facility] HPV9 2020-08-21 00:00:00 Completed [facility] HPV9 2020-08-21 00:00:00 Completed [facility] HPV9 2020-08-21 00:00:00 Completed [facility] HPV9 2020-08-21 00:00:00 Completed [facility] HPV9 2020-08-21 00:00:00 Completed [facility] HPV9 2020-08-21 00:00:00 Completed [facility] HPV9 2020-08-21 00:00:00 Completed [facility] HPV9 2020-08-21 00:00:00 Completed [facility] HPV9 2020-08-21 00:00:00 Completed [facility] HPV9 2020-08-21 00:00:00 Completed [facility] HPV9 2020-08-21 00:00:00 Completed [facility] HPV9 2020-08-21 00:00:00 Completed [facility] HPV9 2020-08-21 00:00:00 Completed [facility] HPV9 2020-05-21 00:00:00 Completed HPV9 2020-05-21 00:00:00 Completed [facility] HPV9 2020-05-21 00:00:00 Completed [facility] HPV9 2020-05-21 00:00:00 Completed [facility] HPV9 2020-05-21 00:00:00 Completed [facility] HPV9 2020-05-21 00:00:00 Completed [facility] HPV9 2020-05-21 00:00:00 Completed [facility] HPV9 2020-05-21 00:00:00 Completed [facility] HPV9 2020-05-21 00:00:00 Completed [facility] HPV9 2020-05-21 00:00:00 Completed [facility] HPV9 2020-05-21 00:00:00 Completed [facility] HPV9 2020-05-21 00:00:00 Completed [facility] HPV9 2020-05-21 00:00:00 Completed [facility] HPV9 2020-05-21 00:00:00 Completed [facility] HPV9 2020-05-21 00:00:00 Completed [facility] HPV9 2020-05-21 00:00:00 Completed [facility] HPV9 2020-05-21 00:00:00 Completed [facility] HPV9 2020-05-21 00:00:00 Completed [facility] HPV9 2020-05-21 00:00:00 Completed [facility] HPV9 2020-05-21 00:00:00 Completed [facility] HPV9 2020-05-21 00:00:00 Completed [facility] HPV9 2020-05-21 00:00:00 Completed [facility] HPV9 2020-05-21 00:00:00 Completed [facility] HPV9 2020-05-21 00:00:00 Completed [facility] HPV9 2020-05-21 00:00:00 Completed [facility] HPV9 2020-05-21 00:00:00 Completed [facility] HPV9 2020-05-21 00:00:00 Completed [facility] HPV9 2020-05-21 00:00:00 Completed [facility] HPV9 2020-05-21 00:00:00 Completed [facility] HPV9 2020-05-21 00:00:00 Completed [facility] HPV9 2020-05-21 00:00:00 Completed [facility] HPV9 2020-05-21 00:00:00 Completed [facility] HPV9 2020-05-21 00:00:00 Completed [facility] HPV9 2020-05-21 00:00:00 Completed [facility] HPV9 2020-02-20 00:00:00 Completed [facility] HPV9 2020-02-20 00:00:00 Completed [facility] HPV9 2020-02-20 00:00:00 Completed [facility] HPV9 2020-02-20 00:00:00 Completed [facility] HPV9 2020-02-20 00:00:00 Completed [facility] HPV9 2020-02-20 00:00:00 Completed [facility] HPV9 2020-02-20 00:00:00 Completed [facility] HPV9 2020-02-20 00:00:00 Completed [facility] HPV9 2020-02-20 00:00:00 Completed [facility] HPV9 2020-02-20 00:00:00 Completed [facility] HPV9 2020-02-20 00:00:00 Completed [facility] HPV9 2020-02-20 00:00:00 Completed [facility] HPV9 2020-02-20 00:00:00 Completed [facility] HPV9 2020-02-20 00:00:00 Completed [facility] HPV9 2020-02-20 00:00:00 Completed [facility] HPV9 2020-02-20 00:00:00 Completed [facility] HPV9 2020-02-20 00:00:00 Completed [facility] HPV9 2020-02-20 00:00:00 Completed [facility] HPV9 2020-02-20 00:00:00 Completed [facility] HPV9 2020-02-20 00:00:00 Completed [facility] HPV9 2020-02-20 00:00:00 Completed [facility] HPV9 2020-02-20 00:00:00 Completed [facility] HPV9 2020-02-20 00:00:00 Completed [facility] HPV9 2020-02-20 00:00:00 Completed [facility] HPV9 2020-02-20 00:00:00 Completed [facility] HPV9 2020-02-20 00:00:00 Completed [facility] HPV9 2020-02-20 00:00:00 Completed [facility] HPV9 2020-02-20 00:00:00 Completed [facility] HPV9 2020-02-20 00:00:00 Completed [facility] HPV9 2020-02-20 00:00:00 Completed [facility] HPV9 2020-02-20 00:00:00 Completed [facility] HPV9 2020-02-20 00:00:00 Completed [facility] HPV9 2020-02-20 00:00:00 Completed [facility] HPV9 2020-02-20 00:00:00 Completed [facility] Influenza Virus Vaccine Quad .5 mL IM 6+ MO 2019-07-07 00:00:00 Completed [facility] Influenza Virus Vaccine Quad .5 mL IM 6+ MO 2019-07-07 00:00:00 Completed [facility] Influenza Virus Vaccine Quad .5 mL IM 6+ MO 2019-07-07 00:00:00 Completed [facility] Influenza Virus Vaccine Quad .5 mL IM 6+ MO 2019-07-07 00:00:00 Completed [facility] Influenza Virus Vaccine Quad .5 mL IM 6+ MO 2019-07-07 00:00:00 Completed [facility] Influenza Virus Vaccine Quad .5 mL IM 6+ MO 2019-07-07 00:00:00 Completed [facility] Influenza Virus Vaccine Quad .5 mL IM 6+ MO 2019-07-07 00:00:00 Completed [facility] Influenza Virus Vaccine Quad .5 mL IM 6+ MO 2019-07-07 00:00:00 Completed [facility] Influenza Virus Vaccine Quad .5 mL IM 6+ MO 2019-07-07 00:00:00 Completed [facility] Influenza Virus Vaccine Quad .5 mL IM 6+ MO 2019-07-07 00:00:00 Completed [facility] Influenza Virus Vaccine Quad .5 mL IM 6+ MO 2019-07-07 00:00:00 Completed [facility] Influenza Virus Vaccine Quad .5 mL IM 6+ MO 2019-07-07 00:00:00 Completed [facility] Influenza Virus Vaccine Quad .5 mL IM 6+ MO 2019-07-07 00:00:00 Completed [facility] Influenza Virus Vaccine Quad .5 mL IM 6+ MO 2019-07-07 00:00:00 Completed [facility] Influenza Virus Vaccine Quad .5 mL IM 6+ MO 2019-07-07 00:00:00 Completed [facility] Influenza Virus Vaccine Quad .5 mL IM 6+ MO 2019-07-07 00:00:00 Completed [facility] Influenza Virus Vaccine Quad .5 mL IM 6+ MO 2019-07-07 00:00:00 Completed [facility] Influenza Virus Vaccine Quad .5 mL IM 6+ MO 2019-07-07 00:00:00 Completed [facility] Influenza Virus Vaccine Quad .5 mL IM 6+ MO 2019-07-07 00:00:00 Completed [facility] Influenza Virus Vaccine Quad .5 mL IM 6+ MO 2019-07-07 00:00:00 Completed [facility] Influenza Virus Vaccine Quad .5 mL IM 6+ MO 2019-07-07 00:00:00 Completed [facility] Influenza Virus Vaccine Quad .5 mL IM 6+ MO 2019-07-07 00:00:00 Completed [facility] Influenza Virus Vaccine Quad .5 mL IM 6+ MO 2019-07-07 00:00:00 Completed [facility] Influenza Virus Vaccine Quad .5 mL IM 6+ MO 2019-07-07 00:00:00 Completed [facility] Influenza Virus Vaccine Quad .5 mL IM 6+ MO 2019-07-07 00:00:00 Completed [facility] Influenza Virus Vaccine Quad .5 mL IM 6+ MO 2019-07-07 00:00:00 Completed [facility] Influenza Virus Vaccine Quad .5 mL IM 6+ MO 2019-07-07 00:00:00 Completed [facility] Influenza Virus Vaccine Quad .5 mL IM 6+ MO 2019-07-07 00:00:00 Completed [facility] Influenza Virus Vaccine Quad .5 mL IM 6+ MO 2019-07-07 00:00:00 Completed [facility] Influenza Virus Vaccine Quad .5 mL IM 6+ MO 2019-07-07 00:00:00 Completed [facility] Influenza Virus Vaccine Quad .5 mL IM 6+ MO 2019-07-07 00:00:00 Completed [facility] Influenza Virus Vaccine Quad .5 mL IM 6+ MO 2019-07-07 00:00:00 Completed [facility] Influenza Virus Vaccine Quad .5 mL IM 6+ MO (FLUZONE/FLULAVAL/FL UARIX) 2019-07-07 00:00:00 Completed [facility] Influenza Virus Vaccine Quad .5 mL IM 6+ MO (FLUZONE/FLULAVAL/FL UARIX) 2019-07-07 00:00:00 Completed [facility] Meningococcal Polysaccharide (groups A, C, Y and W-135) conjugate vaccine (MCV4P) 2016-10-14 00:00:00 Completed TDAP 2016-10-14 00:00:00 Completed Meningococcal Polysaccharide (groups A, C, Y and W-135) conjugate vaccine (MCV4P) 2016-10-14 00:00:00 Completed [facility] TDAP 2016-10-14 00:00:00 Completed [facility] Meningococcal Polysaccharide (groups A, C, Y and W-135) conjugate vaccine (MCV4P) 2016-10-14 00:00:00 Completed [facility] TDAP 2016-10-14 00:00:00 Completed [facility] Meningococcal Polysaccharide (groups A, C, Y and W-135) conjugate vaccine (MCV4P) 2016-10-14 00:00:00 Completed [facility] TDAP 2016-10-14 00:00:00 Completed [facility] Meningococcal Polysaccharide (groups A, C, Y and W-135) conjugate vaccine (MCV4P) 2016-10-14 00:00:00 Completed [facility] TDAP 2016-10-14 00:00:00 Completed [facility] Meningococcal Polysaccharide (groups A, C, Y and W-135) conjugate vaccine (MCV4P) 2016-10-14 00:00:00 Completed [facility] TDAP 2016-10-14 00:00:00 Completed [facility] Meningococcal Polysaccharide (groups A, C, Y and W-135) conjugate vaccine (MCV4P) 2016-10-14 00:00:00 Completed [facility] TDAP 2016-10-14 00:00:00 Completed [facility] Meningococcal Polysaccharide (groups A, C, Y and W-135) conjugate vaccine (MCV4P) 2016-10-14 00:00:00 Completed [facility] TDAP 2016-10-14 00:00:00 Completed [facility] Meningococcal Polysaccharide (groups A, C, Y and W-135) conjugate vaccine (MCV4P) 2016-10-14 [facility] Meningococcal Polysaccharide (groups A, C, Y and W-135) conjugate vaccine (MCV4P) 2016-10-14 00:[facility] Meningococcal Polysaccharide (groups A, C, Y and W-135) conjugate vaccine (MCV4P) 2016-10-14 [facility] Meningococcal Polysaccharide (groups A, C, Y and W-135) conjugate vaccine (MCV4P) 2016-10-14 00:00:00 Completed [facility] TDAP 2016-10-14 00:00:00 Completed [facility] Meningococcal Polysaccharide (groups A, C, Y and W-135) conjugate vaccine (MCV4P) 2016-10-14 00:00:00 Completed [facility] TDAP 2016-10-14 00:00:00 Completed [facility] Meningococcal Polysaccharide (groups A, C, Y and W-135) conjugate vaccine (MCV4P) 2016-10-14 00:00:00 Completed [facility] TDAP 2016-10-14 00:00:00 Completed [facility] Meningococcal Polysaccharide (groups A, C, Y and W-135) conjugate vaccine (MCV4P) 2016-10-14 00:00:00 Completed [facility] TDAP 2016-10-14 00:00:00 Completed [facility] Meningococcal Polysaccharide (groups A, C, Y and W-135) conjugate vaccine (MCV4P) 2016-10-14 00:00:00 Completed [facility] TDAP 2016-10-14 00:00:00 Completed [facility] Meningococcal Polysaccharide (groups A, C, Y and W-135) conjugate vaccine (MCV4P) 2016-10-14 00:00:00 Completed [facility] TDAP 2016-10-14 00:00:00 Completed [facility] Meningococcal Polysaccharide (groups A, C, Y and W-135) conjugate vaccine (MCV4P) 2016-10-14 00:00:00 Completed [facility] TDAP 2016-10-14 00:00:00 Completed [facility] Meningococcal Polysaccharide (groups A, C, Y and W-135) conjugate vaccine (MCV4P) 2016-10-14 [facility] Meningococcal Polysaccharide (groups A, C, Y and W-135) conjugate vaccine (MCV4P) 2016-10-14 00:00:00 Completed [facility] TDAP 2016-10-14 00:00:00 Completed [facility] Meningococcal Polysaccharide (groups A, C, Y and W-135) conjugate vaccine (MCV4P) 2016-10-14 00:00:00 Completed [facility] TDAP 2016-10-14 00:00:00 Completed [facility] Meningococcal Polysaccharide (groups A, C, Y and W-135) conjugate vaccine (MCV4P) 2016-10-14 00:00:00 Completed [facility] TDAP 2016-10-14 00:00:00 Completed [facility] Meningococcal Polysaccharide (groups A, C, Y and W-135) conjugate vaccine (MCV4P) 2016-10-14 00:00:00 Completed [facility] TDAP 2016-10-14 00:00:00 Completed [facility] Meningococcal Polysaccharide (groups A, C, Y and W-135) conjugate vaccine (MCV4P) 2016-10-14 [facility] Meningococcal Polysaccharide (groups A, C, Y and W-135) conjugate vaccine (MCV4P) 2016-10-14 00:00:00 Completed [facility] TDAP 2016-10-14 00:00:00 Completed [facility] Meningococcal Polysaccharide (groups A, C, Y and W-135) conjugate vaccine (MCV4P) 2016-10-14 00:00:00 Completed [facility] TDAP 2016-10-14 00:00:00 Completed [facility] Meningococcal Polysaccharide (groups A, C, Y and W-135) conjugate vaccine (MCV4P) 2016-10-14 00:00:00 Completed [facility] TDAP 2016-10-14 00:00:00 Completed [facility] Meningococcal Polysaccharide (groups A, C, Y and W-135) conjugate vaccine (MCV4P) 2016-10-14 [facility] Meningococcal Polysaccharide (groups A, C, Y and W-135) conjugate vaccine (MCV4P) 2016-10-14 00:00:00 Completed [facility] TDAP 2016-10-14 00:00:00 Completed [facility] Meningococcal Polysaccharide (groups A, C, Y and W-135) conjugate vaccine (MCV4P) 2016-10-14 00:00:00 Completed [facility] [facility] TDAP 2016-10-14 00:00:00 Completed [facility] Meningococcal Polysaccharide (groups A, C, Y and W-135) conjugate vaccine (MCV4P) 2016-10-14 00:00:00 Completed [facility] TDAP 2016-10-14 00:00:00 Completed [facility] Meningococcal Polysaccharide (groups A, C, Y and W-135) conjugate vaccine (MCV4P) 2016-10-14 00:00:00 Completed [facility] TDAP 2016-10-14 00:00:00 Completed [facility] Meningococcal Polysaccharide (groups A, C, Y and W-135) conjugate vaccine (MCV4P) 2016-10-14 [facility] Meningococcal Polysaccharide (groups A, C, Y and W-135) conjugate vaccine (MCV4P) 2016-10-14 00:00:00 Completed [facility] TDAP 2016-10-14 00:00:00 Completed [facility] DTAP 2009-07-09 00:00:00 Completed [facility] DTAP 2009-07-09 00:00:00 Completed [facility] DTAP 2009-07-09 00:00:00 Completed [facility] DTAP 2009-07-09 00:00:00 Completed [facility] DTAP 2009-07-09 00:00:00 Completed [facility] DTAP 2009-07-09 00:00:00 Completed [facility] DTAP 2009-07-09 00:00:00 Completed [facility] DTAP 2009-07-09 00:00:00 Completed [facility] DTAP 2009-07-09 00:00:00 Completed [facility] DTAP 2009-07-09 00:00:00 Completed [facility] DTAP 2009-07-09 00:00:00 Completed [facility] DTAP 2009-07-09 00:00:00 Completed [facility] DTAP 2009-07-09 00:00:00 Completed [facility] DTAP 2009-07-09 00:00:00 Completed [facility] DTAP 2009-07-09 00:00:00 Completed [facility] DTAP 2009-07-09 00:00:00 Completed [facility] DTAP 2009-07-09 00:00:00 Completed [facility] DTAP 2009-07-09 00:00:00 Completed [facility] DTAP 2009-07-09 00:00:00 Completed [facility] DTAP 2009-07-09 00:00:00 Completed [facility] DTAP 2009-07-09 00:00:00 Completed [facility] DTAP 2009-07-09 00:00:00 Completed [facility] DTAP 2009-07-09 00:00:00 Completed [facility] DTAP 2009-07-09 00:00:00 Completed [facility] DTAP 2009-07-09 00:00:00 Completed [facility] DTAP 2009-07-09 00:00:00 Completed [facility] DTAP 2009-07-09 00:00:00 Completed [facility] DTAP 2009-07-09 00:00:00 Completed [facility] DTAP 2009-07-09 00:00:00 Completed [facility] DTAP 2009-07-09 00:00:00 Completed [facility] DTAP 2009-07-09 00:00:00 Completed [facility] DTAP 2009-07-09 00:00:00 Completed [facility] DTAP 2009-07-09 00:00:00 Completed [facility] DTAP 2009-07-09 00:00:00 Completed HEPATITIS A 2008-09-08 00:00:00 Completed MMR 2008-09-08 00:00:00 Completed Polio (IPV/OPV) 2008-09-08 00:00:00 Completed Varicella (varivax)(chicken pox) 2008-09-08 00:00:00 Completed HEPATITIS A 2008-09-08 00:00:00 Completed [facility] MMR 2008-09-08 00:00:00 Completed [facility] Polio (IPV/OPV) 2008-09-08 00:00:00 Completed [facility] Varicella (varivax)(chicken pox) 2008-09-08 00:00:00 Completed [facility] HEPATITIS A 2008-09-08 00:00:00 Completed [facility] MMR 2008-09-08 00:00:00 Completed [facility] Polio (IPV/OPV) 2008-09-08 00:00:00 Completed [facility] Varicella (varivax)(chicken pox) 2008-09-08 00:00:00 Completed [facility] HEPATITIS A 2008-09-08 00:00:00 Completed [facility] MMR 2008-09-08 00:00:00 Completed [facility] Polio (IPV/OPV) 2008-09-08 00:00:00 Completed [facility] Varicella (varivax)(chicken pox) 2008-09-08 00:00:00 Completed [facility] HEPATITIS A 2008-09-08 00:00:00 Completed [facility] MMR 2008-09-08 00:00:00 Completed [facility] Polio (IPV/OPV) 2008-09-08 00:00:00 Completed [facility] Varicella (varivax)(chicken pox) 2008-09-08 00:00:00 Completed [facility] HEPATITIS A 2008-09-08 00:00:00 Completed [facility] MMR 2008-09-08 00:00:00 Completed [facility] Polio (IPV/OPV) 2008-09-08 00:00:00 Completed [facility] Varicella (varivax)(chicken pox) 2008-09-08 00:00:00 Completed [facility] HEPATITIS A 2008-09-08 00:00:00 Completed [facility] MMR 2008-09-08 00:00:00 Completed [facility] Polio (IPV/OPV) 2008-09-08 00:00:00 Completed [facility] Varicella (varivax)(chicken pox) 2008-09-08 00:00:00 Completed [facility] HEPATITIS A 2008-09-08 00:00:00 Completed [facility] 2008-09-08 00:00:00 Completed [facility] Polio (IPV/OPV) 2008-09-08 00:00:00 Completed [facility] Varicella (varivax)(chicken pox) 2008-09-08 00:00:00 Completed [facility] HEPATITIS A 2008-09-08 00:00:00 Completed [facility] 2008-09-08 00:00:00 Completed [facility] Polio (IPV/OPV) 2008-09-08 00:00:00 Completed [facility] Varicella (varivax)(chicken pox) 2008-09-08 00:00:00 Completed [facility] HEPATITIS A 2008-09-08 00:00:00 Completed [facility] MMR 2008-09-08 00:00:00 Completed [facility] Polio (IPV/OPV) 2008-09-08 00:00:00 Completed [facility] Varicella (varivax)(chicken pox) 2008-09-08 00:00:00 Completed [facility] HEPATITIS A 2008-09-08 00:00:00 Completed [facility] 2008-09-08 00:00:00 Completed [facility] Polio (IPV/OPV) 2008-09-08 00:00:00 Completed [facility] Varicella (varivax)(chicken pox) 2008-09-08 00:00:00 Completed [facility] HEPATITIS A 2008-09-08 00:00:00 Completed [facility] MMR 2008-09-08 00:00:00 Completed [facility] Polio (IPV/OPV) 2008-09-08 00:00:00 Completed [facility] Varicella (varivax)(chicken pox) 2008-09-08 00:00:00 Completed [facility] HEPATITIS A 2008-09-08 00:00:00 Completed [facility] MMR 2008-09-08 00:00:00 Completed [facility] Polio (IPV/OPV) 2008-09-08 00:00:00 Completed [facility] Varicella (varivax)(chicken pox) 2008-09-08 00:00:00 Completed [facility] HEPATITIS A 2008-09-08 00:00:00 Completed [facility] MMR 2008-09-08 00:00:00 Completed [facility] Polio (IPV/OPV) 2008-09-08 00:00:00 Completed [facility] Varicella (varivax)(chicken pox) 2008-09-08 00:00:00 Completed [facility] HEPATITIS A 2008-09-08 00:00:00 Completed [facility] MMR 2008-09-08 00:00:00 Completed [facility] Polio (IPV/OPV) 2008-09-08 00:00:00 Completed [facility] Varicella (varivax)(chicken pox) 2008-09-08 00:00:00 Completed [facility] HEPATITIS A 2008-09-08 00:00:00 Completed [facility] MMR 2008-09-08 00:00:00 Completed [facility] Polio (IPV/OPV) 2008-09-08 00:00:00 Completed [facility] Varicella (varivax)(chicken pox) 2008-09-08 00:00:00 Completed [facility] HEPATITIS A 2008-09-08 00:00:00 Completed [facility] MMR 2008-09-08 00:00:00 Completed [facility] Polio (IPV/OPV) 2008-09-08 00:00:00 Completed [facility] Varicella (varivax)(chicken pox) 2008-09-08 00:00:00 Completed [facility] HEPATITIS A 2008-09-08 00:00:00 Completed [facility] 2008-09-08 00:00:00 Completed [facility] Polio (IPV/OPV) 2008-09-08 00:00:00 Completed [facility] Varicella (varivax)(chicken pox) 2008-09-08 00:00:00 Completed [facility] HEPATITIS A 2008-09-08 00:00:00 Completed [facility] MMR 2008-09-08 00:00:00 Completed [facility] Polio (IPV/OPV) 2008-09-08 00:00:00 Completed [facility] Varicella (varivax)(chicken pox) 2008-09-08 00:00:00 Completed [facility] HEPATITIS A 2008-09-08 00:00:00 Completed [facility] 2008-09-08 00:00:00 Completed [facility] Polio (IPV/OPV) 2008-09-08 00:00:00 Completed [facility] Varicella (varivax)(chicken pox) 2008-09-08 00:00:00 Completed [facility] HEPATITIS A 2008-09-08 00:00:00 Completed [facility] MMR 2008-09-08 00:00:00 Completed [facility] Polio (IPV/OPV) 2008-09-08 00:00:00 Completed [facility] Varicella (varivax)(chicken pox) 2008-09-08 00:00:00 Completed [facility] HEPATITIS A 2008-09-08 00:00:00 Completed [facility] MMR 2008-09-08 00:00:00 Completed [facility] Polio (IPV/OPV) 2008-09-08 00:00:00 Completed [facility] Varicella (varivax)(chicken pox) 2008-09-08 00:00:00 Completed [facility] HEPATITIS A 2008-09-08 00:00:00 Completed [facility] MMR 2008-09-08 00:00:00 Completed [facility] Polio (IPV/OPV) 2008-09-08 00:00:00 Completed [facility] Varicella (varivax)(chicken pox) 2008-09-08 00:00:00 Completed [facility] HEPATITIS A 2008-09-08 00:00:00 Completed [facility] MMR 2008-09-08 00:00:00 Completed [facility] Polio (IPV/OPV) 2008-09-08 00:00:00 Completed [facility] Varicella (varivax)(chicken pox) 2008-09-08 00:00:00 Completed [facility] HEPATITIS A 2008-09-08 00:00:00 Completed [facility] MMR 2008-09-08 00:00:00 Completed [facility] Polio (IPV/OPV) 2008-09-08 00:00:00 Completed [facility] Varicella (varivax)(chicken pox) 2008-09-08 00:00:00 Completed [facility] HEPATITIS A 2008-09-08 00:00:00 Completed [facility] MMR 2008-09-08 00:00:00 Completed [facility] Polio (IPV/OPV) 2008-09-08 00:00:00 Completed [facility] Varicella (varivax)(chicken pox) 2008-09-08 00:00:00 Completed [facility] HEPATITIS A 2008-09-08 00:00:00 Completed [facility] MMR 2008-09-08 00:00:00 Completed [facility] Polio (IPV/OPV) 2008-09-08 00:00:00 Completed [facility] Varicella (varivax)(chicken pox) 2008-09-08 00:00:00 Completed [facility] HEPATITIS A 2008-09-08 00:00:00 Completed [facility] MMR 2008-09-08 00:00:00 Completed [facility] Polio (IPV/OPV) 2008-09-08 00:00:00 Completed [facility] Varicella (varivax)(chicken pox) 2008-09-08 00:00:00 Completed [facility] HEPATITIS A 2008-09-08 00:00:00 Completed [facility] MMR 2008-09-08 00:00:00 Completed [facility] Polio (IPV/OPV) 2008-09-08 00:00:00 Completed [facility] Varicella (varivax)(chicken pox) 2008-09-08 00:00:00 Completed [facility] HEPATITIS A 2008-09-08 00:00:00 Completed [facility] MMR 2008-09-08 00:00:00 Completed [facility] Polio (IPV/OPV) 2008-09-08 00:00:00 Completed [facility] Varicella (varivax)(chicken pox) 2008-09-08 00:00:00 Completed [facility] HEPATITIS A 2008-09-08 00:00:00 Completed [facility] MMR 2008-09-08 00:00:00 Completed [facility] Polio (IPV/OPV) 2008-09-08 00:00:00 Completed [facility] Varicella (varivax)(chicken pox) 2008-09-08 00:00:00 Completed [facility] HEPATITIS A 2008-09-08 00:00:00 Completed [facility] MMR 2008-09-08 00:00:00 Completed [facility] Polio (IPV/OPV) 2008-09-08 00:00:00 Completed [facility] Varicella (varivax)(chicken pox) 2008-09-08 00:00:00 Completed [facility] HEPATITIS A 2008-09-08 00:00:00 Completed [facility] MMR 2008-09-08 00:00:00 Completed [facility] Polio (IPV/OPV) 2008-09-08 00:00:00 Completed [facility] Varicella (varivax)(chicken pox) 2008-09-08 00:00:00 Completed [facility] HEPATITIS A 2008-09-08 00:00:00 Completed [facility] MMR 2008-09-08 00:00:00 Completed [facility] Polio (IPV/OPV) 2008-09-08 00:00:00 Completed [facility] Varicella (varivax)(chicken pox) 2008-09-08 00:00:00 Completed [facility] HIB 4 Dose Schedule 2006-07-01 00:00:00 Completed HEPATITIS A 2006-07-01 00:00:00 Completed DTAP 2006-07-01 00:00:00 Completed [facility] HIB 4 Dose Schedule 2006-07-01 00:00:00 Completed [facility] HEPATITIS A 2006-07-01 00:00:00 Completed [facility] DTAP 2006-07-01 00:00:00 Completed [facility] HIB 4 Dose Schedule 2006-07-01 00:00:00 Completed [facility] HEPATITIS A 2006-07-01 00:00:00 Completed [facility] DTAP 2006-07-01 00:00:00 Completed [facility] HIB 4 Dose Schedule 2006-07-01 00:00:00 Completed [facility] HEPATITIS A 2006-07-01 00:00:00 Completed [facility] DTAP 2006-07-01 00:00:00 Completed [facility] HIB 4 Dose Schedule 2006-07-01 00:00:00 Completed [facility] HEPATITIS A 2006-07-01 00:00:00 Completed [facility] DTAP 2006-07-01 00:00:00 Completed [facility] HIB 4 Dose Schedule 2006-07-01 00:00:00 Completed [facility] HEPATITIS A 2006-07-01 00:00:00 Completed [facility] DTAP 2006-07-01 00:00:00 Completed [facility] HIB 4 Dose Schedule 2006-07-01 00:00:00 Completed [facility] HEPATITIS A 2006-07-01 00:00:00 Completed [facility] DTAP 2006-07-01 00:00:00 Completed [facility] HIB 4 Dose Schedule 2006-07-01 00:00:00 Completed [facility] HEPATITIS A 2006-07-01 00:00:00 Completed [facility] DTAP 2006-07-01 00:00:00 Completed [facility] HIB 4 Dose Schedule 2006-07-01 00:00:00 Completed [facility] HEPATITIS A 2006-07-01 00:00:00 Completed [facility] DTAP 2006-07-01 00:00:00 Completed [facility] HIB 4 Dose Schedule 2006-07-01 00:00:00 Completed [facility] HEPATITIS A 2006-07-01 00:00:00 Completed [facility] DTAP 2006-07-01 00:00:00 Completed [facility] HIB 4 Dose Schedule 2006-07-01 00:00:00 Completed [facility] HEPATITIS A 2006-07-01 00:00:00 Completed [facility] DTAP 2006-07-01 00:00:00 Completed [facility] HIB 4 Dose Schedule 2006-07-01 00:00:00 Completed [facility] HEPATITIS A 2006-07-01 00:00:00 Completed [facility] DTAP 2006-07-01 00:00:00 Completed [facility] HIB 4 Dose Schedule 2006-07-01 00:00:00 Completed [facility] HEPATITIS A 2006-07-01 00:00:00 Completed [facility] DTAP 2006-07-01 00:00:00 Completed [facility] HIB 4 Dose Schedule 2006-07-01 00:00:00 Completed [facility] HEPATITIS A 2006-07-01 00:00:00 Completed [facility] DTAP 2006-07-01 00:00:00 Completed [facility] HIB 4 Dose Schedule 2006-07-01 00:00:00 Completed [facility] HEPATITIS A 2006-07-01 00:00:00 Completed [facility] DTAP 2006-07-01 00:00:00 Completed [facility] HIB 4 Dose Schedule 2006-07-01 00:00:00 Completed [facility] HEPATITIS A 2006-07-01 00:00:00 Completed [facility] DTAP 2006-07-01 00:00:00 Completed [facility] HIB 4 Dose Schedule 2006-07-01 00:00:00 Completed [facility] HEPATITIS A 2006-07-01 00:00:00 Completed [facility] DTAP 2006-07-01 00:00:00 Completed [facility] HIB 4 Dose Schedule 2006-07-01 00:00:00 Completed [facility] HEPATITIS A 2006-07-01 00:00:00 Completed [facility] DTAP 2006-07-01 00:00:00 Completed [facility] HIB 4 Dose Schedule 2006-07-01 00:00:00 Completed [facility] HEPATITIS A 2006-07-01 00:00:00 Completed [facility] DTAP 2006-07-01 00:00:00 Completed [facility] HIB 4 Dose Schedule 2006-07-01 00:00:00 Completed [facility] HEPATITIS A 2006-07-01 00:00:00 Completed [facility] DTAP 2006-07-01 00:00:00 Completed [facility] HIB 4 Dose Schedule 2006-07-01 00:00:00 Completed [facility] HEPATITIS A 2006-07-01 00:00:00 Completed [facility] DTAP 2006-07-01 00:00:00 Completed [facility] HIB 4 Dose Schedule 2006-07-01 00:00:00 Completed [facility] HEPATITIS A 2006-07-01 00:00:00 Completed [facility] DTAP 2006-07-01 00:00:00 Completed [facility] HIB 4 Dose Schedule 2006-07-01 00:00:00 Completed [facility] HEPATITIS A 2006-07-01 00:00:00 Completed [facility] DTAP 2006-07-01 00:00:00 Completed [facility] HIB 4 Dose Schedule 2006-07-01 00:00:00 Completed [facility] HEPATITIS A 2006-07-01 00:00:00 Completed [facility] DTAP 2006-07-01 00:00:00 Completed [facility] HIB 4 Dose Schedule 2006-07-01 00:00:00 Completed [facility] HEPATITIS A 2006-07-01 00:00:00 Completed [facility] DTAP 2006-07-01 00:00:00 Completed [facility] HIB 4 Dose Schedule 2006-07-01 00:00:00 Completed [facility] HEPATITIS A 2006-07-01 00:00:00 Completed [facility] DTAP 2006-07-01 00:00:00 Completed [facility] HIB 4 Dose Schedule 2006-07-01 00:00:00 Completed [facility] HEPATITIS A 2006-07-01 00:00:00 Completed [facility] DTAP 2006-07-01 00:00:00 Completed [facility] HIB 4 Dose Schedule 2006-07-01 00:00:00 Completed [facility] HEPATITIS A 2006-07-01 00:00:00 Completed [facility] DTAP 2006-07-01 00:00:00 Completed [facility] HIB 4 Dose Schedule 2006-07-01 00:00:00 Completed [facility] HEPATITIS A 2006-07-01 00:00:00 Completed [facility] DTAP 2006-07-01 00:00:00 Completed [facility] HIB 4 Dose Schedule 2006-07-01 00:00:00 Completed [facility] HEPATITIS A 2006-07-01 00:00:00 Completed [facility] DTAP 2006-07-01 00:00:00 Completed [facility] HIB 4 Dose Schedule 2006-07-01 00:00:00 Completed [facility] HEPATITIS A 2006-07-01 00:00:00 Completed [facility] DTAP 2006-07-01 00:00:00 Completed [facility] HIB 4 Dose Schedule 2006-07-01 00:00:00 Completed [facility] HEPATITIS A 2006-07-01 00:00:00 Completed [facility] DTAP 2006-07-01 00:00:00 Completed [facility] HIB 4 Dose Schedule 2006-07-01 00:00:00 Completed [facility] HEPATITIS A 2006-07-01 00:00:00 Completed [facility] DTAP 2006-07-01 00:00:00 Completed [facility] HIB 4 Dose Schedule 2006-07-01 00:00:00 Completed [facility] HEPATITIS A 2006-07-01 00:00:00 Completed [facility] DTAP 2006-07-01 00:00:00 Completed MMR 2005-11-19 00:00:00 Completed Pneumococcal 13 Conjugate, PCV13 (Prevnar 13) 2005-11-19 00:00:00 Completed MMR 2005-11-19 00:00:00 Completed [facility] Pneumococcal 13 Conjugate, PCV13 (Prevnar 13) 2005-11-19 00:00:00 Completed [facility] MMR 2005-11-19 00:00:00 Completed [facility] Pneumococcal 13 Conjugate, PCV13 (Prevnar 13) 2005-11-19 00:00:00 Completed [facility] 2005-11-19 00:00:00 Completed [facility] Pneumococcal 13 Conjugate, PCV13 (Prevnar 13) 2005-11-19 00:00:00 Completed [facility] 2005-11-19 00:00:00 Completed [facility] Pneumococcal 13 Conjugate, PCV13 (Prevnar 13) 2005-11-19 00:00:00 Completed [facility] 2005-11-19 00:00:00 Completed [facility] Pneumococcal 13 Conjugate, PCV13 (Prevnar 13) 2005-11-19 00:00:00 Completed [facility] 2005-11-19 00:00:00 Completed [facility] Pneumococcal 13 Conjugate, PCV13 (Prevnar 13) 2005-11-19 00:00:00 Completed [facility] 2005-11-19 00:00:00 Completed [facility] Pneumococcal 13 Conjugate, PCV13 (Prevnar 13) 2005-11-19 00:00:00 [facility] [facility] 00:00:00 Completed [facility] Pneumococcal 13 Conjugate, PCV13 (Prevnar 13) 2005-11-19 00:00:00 Completed [facility] 2005-11-19 00:00:00 Completed [facility] Pneumococcal 13 Conjugate, PCV13 (Prevnar 13) 2005-11-19 00:00:00 Completed [facility] 2005-11-19 00:00:00 Completed [facility] Pneumococcal 13 Conjugate, PCV13 (Prevnar 13) 2005-11-19 00:00:00 Completed [facility] 2005-11-19 00:00:00 Completed [facility] Pneumococcal 13 Conjugate, PCV13 (Prevnar 13) 2005-11-19 00:00:00 Completed [facility] 2005-11-19 00:00:00 Completed [facility] Pneumococcal 13 Conjugate, PCV13 (Prevnar 13) 2005-11-19 00:00:00 Completed [facility] 2005-11-19 00:00:00 Completed [facility] Pneumococcal 13 Conjugate, PCV13 (Prevnar 13) 2005-11-19 00:00:00 Completed [facility] 2005-11-19 00:00:00 Completed [facility] Pneumococcal 13 Conjugate, PCV13 (Prevnar 13) 2005-11-19 00:00:00 Completed [facility] 2005-11-19 00:00:00 Completed [facility] Pneumococcal 13 Conjugate, PCV13 (Prevnar 13) 2005-11-19 00:00:00 Completed [facility] 2005-11-19 00:00:00 Completed [facility] Pneumococcal 13 Conjugate, PCV13 (Prevnar 13) 2005-11-19 00:00:00 Completed [facility] 2005-11-19 00:00:00 Completed [facility] Pneumococcal 13 Conjugate, PCV13 (Prevnar 13) 2005-11-19 00:00:00 Completed [facility] 2005-11-19 00:00:00 Completed [facility] Pneumococcal 13 Conjugate, PCV13 (Prevnar 13) 2005-11-19 00:00:00 Completed [facility] 2005-11-19 00:00:00 Completed [facility] Pneumococcal 13 Conjugate, PCV13 (Prevnar 13) 2005-11-19 00:00:00 Completed [facility] 2005-11-19 00:00:00 Completed [facility] Pneumococcal 13 Conjugate, PCV13 (Prevnar 13) 2005-11-19 00:00:00 Completed [facility] 2005-11-19 00:00:00 Completed [facility] Pneumococcal 13 Conjugate, PCV13 (Prevnar 13) 2005-11-19 00:00:00 Completed [facility] 2005-11-19 00:00:00 Completed [facility] Pneumococcal 13 Conjugate, PCV13 (Prevnar 13) 2005-11-19 00:00:00 Completed [facility] 2005-11-19 00:00:00 Completed [facility] Pneumococcal 13 Conjugate, PCV13 (Prevnar 13) 2005-11-19 00:00:00 Completed [facility] 2005-11-19 00:00:00 Completed [facility] Pneumococcal 13 Conjugate, PCV13 (Prevnar 13) 2005-11-19 00:00:00 Completed [facility] 2005-11-19 00:00:00 Completed [facility] Pneumococcal 13 Conjugate, PCV13 (Prevnar 13) 2005-11-19 00:00:00 Completed [facility] 2005-11-19 00:00:00 Completed [facility] Pneumococcal 13 Conjugate, PCV13 (Prevnar 13) 2005-11-19 00:00:00 Completed [facility] 2005-11-19 00:00:00 Completed [facility] Pneumococcal 13 Conjugate, PCV13 (Prevnar 13) 2005-11-19 00:00:00 Completed [facility] 2005-11-19 00:00:00 Completed [facility] Pneumococcal 13 Conjugate, PCV13 (Prevnar 13) 2005-11-19 00:00:00 Completed [facility] 2005-11-19 00:00:00 Completed [facility] Pneumococcal 13 Conjugate, PCV13 (Prevnar 13) 2005-11-19 00:00:00 Completed [facility] 2005-11-19 00:00:00 Completed [facility] Pneumococcal 13 Conjugate, PCV13 (Prevnar 13) 2005-11-19 00:00:00 Completed [facility] 2005-11-19 00:00:00 Completed [facility] Pneumococcal 13 Conjugate, PCV13 (Prevnar 13) 2005-11-19 00:00:00 Completed [facility] 2005-11-19 00:00:00 Completed [facility] Pneumococcal 13 Conjugate, PCV13 (Prevnar 13) 2005-11-19 00:00:00 Completed [facility] 2005-11-19 00:00:00 Completed [facility] Pneumococcal 13 Conjugate, PCV13 (Prevnar 13) 2005-11-19 00:00:00 Completed [facility] Varicella (varivax)(chicken pox) 2005-08-20 00:00:00 Completed Varicella (varivax)(chicken pox) 2005-08-20 00:00:00 Completed [facility] Varicella (varivax)(chicken pox) 2005-08-20 00:00:00 Completed [facility] Varicella (varivax)(chicken pox) 2005-08-20 00:00:00 Completed [facility] Varicella (varivax)(chicken pox) 2005-08-20 00:00:00 Completed [facility] Varicella (varivax)(chicken pox) 2005-08-20 00:00:00 Completed [facility] Varicella (varivax)(chicken pox) 2005-08-20 00:00:00 Completed [facility] Varicella (varivax)(chicken pox) 2005-08-20 00:00:00 Completed [facility] Varicella (varivax)(chicken pox) 2005-08-20 00:00:00 Completed [facility] Varicella (varivax)(chicken pox) 2005-08-20 00:00:00 Completed [facility] Varicella (varivax)(chicken pox) 2005-08-20 00:00:00 Completed [facility] Varicella (varivax)(chicken pox) 2005-08-20 00:00:00 Completed [facility] Varicella (varivax)(chicken pox) 2005-08-20 00:00:00 Completed [facility] Varicella (varivax)(chicken pox) 2005-08-20 00:00:00 Completed [facility] Varicella (varivax)(chicken pox) 2005-08-20 00:00:00 Completed [facility] Varicella (varivax)(chicken pox) 2005-08-20 00:00:00 Completed [facility] Varicella (varivax)(chicken pox) 2005-08-20 00:00:00 Completed [facility] Varicella (varivax)(chicken pox) 2005-08-20 00:00:00 Completed [facility] Varicella (varivax)(chicken pox) 2005-08-20 00:00:00 Completed [facility] Varicella (varivax)(chicken pox) 2005-08-20 00:00:00 Completed [facility] Varicella (varivax)(chicken pox) 2005-08-20 00:00:00 Completed [facility] Varicella (varivax)(chicken pox) 2005-08-20 00:00:00 Completed [facility] Varicella (varivax)(chicken pox) 2005-08-20 00:00:00 Completed [facility] Varicella (varivax)(chicken pox) 2005-08-20 00:00:00 Completed [facility] Varicella (varivax)(chicken pox) 2005-08-20 00:00:00 Completed [facility] Varicella (varivax)(chicken pox) 2005-08-20 00:00:00 Completed [facility] Varicella (varivax)(chicken pox) 2005-08-20 00:00:00 Completed [facility] Varicella (varivax)(chicken pox) 2005-08-20 00:00:00 Completed [facility] Varicella (varivax)(chicken pox) 2005-08-20 00:00:00 Completed [facility] Varicella (varivax)(chicken pox) 2005-08-20 00:00:00 Completed [facility] Varicella (varivax)(chicken pox) 2005-08-20 00:00:00 Completed [facility] Varicella (varivax)(chicken pox) 2005-08-20 00:00:00 Completed [facility] Varicella (varivax)(chicken pox) 2005-08-20 00:00:00 Completed [facility] Varicella (varivax)(chicken pox) 2005-08-20 00:00:00 Completed [facility] HIB 4 Dose Schedule 2005-02-27 00:00:00 Completed Hep B, Adol or Pedi Dosage 2005-02-27 00:00:00 Completed Pneumococcal 13 Conjugate, PCV13 (Prevnar 13) 2005-02-27 00:00:00 Completed Polio (IPV/OPV) 2005-02-27 00:00:00 Completed DTAP 2005-02-27 00:00:00 Completed [facility] HIB 4 Dose Schedule 2005-02-27 00:00:00 Completed [facility] Hep B, Adol or Pedi Dosage 2005-02-27 00:00:00 Completed [facility] Pneumococcal 13 Conjugate, PCV13 (Prevnar 13) 2005-02-27 00:00:00 Completed [facility] Polio (IPV/OPV) 2005-02-27 00:00:00 Completed [facility] DTAP 2005-02-27 00:00:00 Completed [facility] HIB 4 Dose Schedule 2005-02-27 00:00:00 Completed [facility] Hep B, Adol or Pedi Dosage 2005-02-27 00:00:00 Completed [facility] Pneumococcal 13 Conjugate, PCV13 (Prevnar 13) 2005-02-27 00:00:00 Completed [facility] Polio (IPV/OPV) 2005-02-27 00:00:00 Completed [facility] DTAP 2005-02-27 00:00:00 Completed [facility] HIB 4 Dose Schedule 2005-02-27 00:00:00 Completed [facility] Hep B, Adol or Pedi Dosage 2005-02-27 00:00:00 Completed [facility] Pneumococcal 13 Conjugate, PCV13 (Prevnar 13) 2005-02-27 00:00:00 Completed [facility] Polio (IPV/OPV) 2005-02-27 00:00:00 Completed [facility] DTAP 2005-02-27 00:00:00 Completed [facility] HIB 4 Dose Schedule 2005-02-27 00:00:00 Completed [facility] Hep B, Adol or Pedi Dosage 2005-02-27 00:00:00 Completed [facility] Pneumococcal 13 Conjugate, PCV13 (Prevnar 13) 2005-02-27 00:00:00 Completed [facility] Polio (IPV/OPV) 2005-02-27 00:00:00 Completed [facility] DTAP 2005-02-27 00:00:00 Completed [facility] HIB 4 Dose Schedule 2005-02-27 00:00:00 Completed [facility] Hep B, Adol or Pedi Dosage 2005-02-27 00:00:00 Completed [facility] Pneumococcal 13 Conjugate, PCV13 (Prevnar 13) 2005-02-27 00:00:00 Completed [facility] Polio (IPV/OPV) 2005-02-27 00:00:00 Completed [facility] DTAP 2005-02-27 00:00:00 Completed [facility] HIB 4 Dose Schedule 2005-02-27 00:00:00 Completed [facility] Hep B, Adol or Pedi Dosage 2005-02-27 00:00:00 Completed [facility] Pneumococcal 13 Conjugate, PCV13 (Prevnar 13) 2005-02-27 00:00:00 Completed [facility] Polio (IPV/OPV) 2005-02-27 00:00:00 Completed [facility] DTAP 2005-02-27 00:00:00 Completed [facility] HIB 4 Dose Schedule 2005-02-27 00:00:00 Completed [facility] Hep B, Adol or Pedi Dosage 2005-02-27 00:00:00 Completed [facility] Pneumococcal 13 Conjugate, PCV13 (Prevnar 13) 2005-02-27 00:00:00 Completed [facility] Polio (IPV/OPV) 2005-02-27 00:00:00 Completed [facility] DTAP 2005-02-27 00:00:00 Completed [facility] HIB 4 Dose Schedule 2005-02-27 00:00:00 Completed [facility] Hep B, Adol or Pedi Dosage 2005-02-27 00:00:00 Completed [facility] Pneumococcal 13 Conjugate, PCV13 (Prevnar 13) 2005-02-27 00:00:00 Completed [facility] Polio (IPV/OPV) 2005-02-27 00:00:00 Completed [facility] DTAP 2005-02-27 00:00:00 Completed [facility] HIB 4 Dose Schedule 2005-02-27 00:00:00 Completed [facility] Hep B, Adol or Pedi Dosage 2005-02-27 00:00:00 Completed [facility] Pneumococcal 13 Conjugate, PCV13 (Prevnar 13) 2005-02-27 00:00:00 Completed [facility] Polio (IPV/OPV) 2005-02-27 00:00:00 Completed [facility] DTAP 2005-02-27 00:00:00 Completed [facility] HIB 4 Dose Schedule 2005-02-27 00:00:00 Completed [facility] Hep B, Adol or Pedi Dosage 2005-02-27 00:00:00 Completed [facility] Pneumococcal 13 Conjugate, PCV13 (Prevnar 13) 2005-02-27 00:00:00 Completed [facility] Polio (IPV/OPV) 2005-02-27 00:00:00 Completed [facility] DTAP 2005-02-27 00:00:00 Completed [facility] HIB 4 Dose Schedule 2005-02-27 00:00:00 Completed [facility] Hep B, Adol or Pedi Dosage 2005-02-27 00:00:00 Completed [facility] Pneumococcal 13 Conjugate, PCV13 (Prevnar 13) 2005-02-27 00:00:00 Completed [facility] Polio (IPV/OPV) 2005-02-27 00:00:00 Completed [facility] DTAP 2005-02-27 00:00:00 Completed [facility] HIB 4 Dose Schedule 2005-02-27 00:00:00 Completed [facility] Hep B, Adol or Pedi Dosage 2005-02-27 00:00:00 Completed [facility] Pneumococcal 13 Conjugate, PCV13 (Prevnar 13) 2005-02-27 00:00:00 Completed [facility] Polio (IPV/OPV) 2005-02-27 00:00:00 Completed [facility] DTAP 2005-02-27 00:00:00 Completed [facility] HIB 4 Dose Schedule 2005-02-27 00:00:00 Completed [facility] Hep B, Adol or Pedi Dosage 2005-02-27 00:00:00 Completed [facility] Pneumococcal 13 Conjugate, PCV13 (Prevnar 13) 2005-02-27 00:00:00 Completed [facility] Polio (IPV/OPV) 2005-02-27 00:00:00 Completed [facility] DTAP 2005-02-27 00:00:00 Completed [facility] HIB 4 Dose Schedule 2005-02-27 00:00:00 Completed [facility] Hep B, Adol or Pedi Dosage 2005-02-27 00:00:00 Completed [facility] Pneumococcal 13 Conjugate, PCV13 (Prevnar 13) 2005-02-27 00:00:00 Completed [facility] Polio (IPV/OPV) 2005-02-27 00:00:00 Completed [facility] DTAP 2005-02-27 00:00:00 Completed [facility] HIB 4 Dose Schedule 2005-02-27 00:00:00 Completed [facility] Hep B, Adol or Pedi Dosage 2005-02-27 00:00:00 Completed [facility] Pneumococcal 13 Conjugate, PCV13 (Prevnar 13) 2005-02-27 00:00:00 Completed [facility] Polio (IPV/OPV) 2005-02-27 00:00:00 Completed [facility] DTAP 2005-02-27 00:00:00 Completed [facility] HIB 4 Dose Schedule 2005-02-27 00:00:00 Completed [facility] Hep B, Adol or Pedi Dosage 2005-02-27 00:00:00 Completed [facility] Pneumococcal 13 Conjugate, PCV13 (Prevnar 13) 2005-02-27 00:00:00 Completed [facility] Polio (IPV/OPV) 2005-02-27 00:00:00 Completed [facility] DTAP 2005-02-27 00:00:00 Completed [facility] HIB 4 Dose Schedule 2005-02-27 00:00:00 Completed [facility] Hep B, Adol or Pedi Dosage 2005-02-27 00:00:00 Completed [facility] Pneumococcal 13 Conjugate, PCV13 (Prevnar 13) 2005-02-27 00:00:00 Completed [facility] Polio (IPV/OPV) 2005-02-27 00:00:00 Completed [facility] DTAP 2005-02-27 00:00:00 Completed [facility] HIB 4 Dose Schedule 2005-02-27 00:00:00 Completed [facility] Hep B, Adol or Pedi Dosage 2005-02-27 00:00:00 Completed [facility] Pneumococcal 13 Conjugate, PCV13 (Prevnar 13) 2005-02-27 00:00:00 Completed [facility] Polio (IPV/OPV) 2005-02-27 00:00:00 Completed [facility] DTAP 2005-02-27 00:00:00 Completed [facility] HIB 4 Dose Schedule 2005-02-27 00:00:00 Completed [facility] Hep B, Adol or Pedi Dosage 2005-02-27 00:00:00 Completed [facility] Pneumococcal 13 Conjugate, PCV13 (Prevnar 13) 2005-02-27 00:00:00 Completed [facility] Polio (IPV/OPV) 2005-02-27 00:00:00 Completed [facility] DTAP 2005-02-27 00:00:00 Completed [facility] HIB 4 Dose Schedule 2005-02-27 00:00:00 Completed [facility] Hep B, Adol or Pedi Dosage 2005-02-27 00:00:00 Completed [facility] Pneumococcal 13 Conjugate, PCV13 (Prevnar 13) 2005-02-27 00:00:00 Completed [facility] Polio (IPV/OPV) 2005-02-27 00:00:00 Completed [facility] DTAP 2005-02-27 00:00:00 Completed [facility] HIB 4 Dose Schedule 2005-02-27 00:00:00 Completed [facility] Hep B, Adol or Pedi Dosage 2005-02-27 00:00:00 Completed [facility] Pneumococcal 13 Conjugate, PCV13 (Prevnar 13) 2005-02-27 00:00:00 Completed [facility] Polio (IPV/OPV) 2005-02-27 00:00:00 Completed [facility] DTAP 2005-02-27 00:00:00 Completed [facility] HIB 4 Dose Schedule 2005-02-27 00:00:00 Completed [facility] Hep B, Adol or Pedi Dosage 2005-02-27 00:00:00 Completed [facility] Pneumococcal 13 Conjugate, PCV13 (Prevnar 13) 2005-02-27 00:00:00 Completed [facility] Polio (IPV/OPV) 2005-02-27 00:00:00 Completed [facility] DTAP 2005-02-27 00:00:00 Completed [facility] HIB 4 Dose Schedule 2005-02-27 00:00:00 Completed [facility] Hep B, Adol or Pedi Dosage 2005-02-27 00:00:00 Completed [facility] Pneumococcal 13 Conjugate, PCV13 (Prevnar 13) 2005-02-27 00:00:00 Completed [facility] Polio (IPV/OPV) 2005-02-27 00:00:00 Completed [facility] DTAP 2005-02-27 00:00:00 Completed [facility] HIB 4 Dose Schedule 2005-02-27 00:00:00 Completed [facility] Hep B, Adol or Pedi Dosage 2005-02-27 00:00:00 Completed [facility] Pneumococcal 13 Conjugate, PCV13 (Prevnar 13) 2005-02-27 00:00:00 Completed [facility] Polio (IPV/OPV) 2005-02-27 00:00:00 Completed [facility] DTAP 2005-02-27 00:00:00 Completed [facility] HIB 4 Dose Schedule 2005-02-27 00:00:00 Completed [facility] Hep B, Adol or Pedi Dosage 2005-02-27 00:00:00 Completed [facility] Pneumococcal 13 Conjugate, PCV13 (Prevnar 13) 2005-02-27 00:00:00 Completed [facility] Polio (IPV/OPV) 2005-02-27 00:00:00 Completed [facility] DTAP 2005-02-27 00:00:00 Completed [facility] HIB 4 Dose Schedule 2005-02-27 00:00:00 Completed [facility] Hep B, Adol or Pedi Dosage 2005-02-27 00:00:00 Completed [facility] Pneumococcal 13 Conjugate, PCV13 (Prevnar 13) 2005-02-27 00:00:00 Completed [facility] Polio (IPV/OPV) 2005-02-27 00:00:00 Completed [facility] DTAP 2005-02-27 00:00:00 Completed [facility] HIB 4 Dose Schedule 2005-02-27 00:00:00 Completed [facility] Hep B, Adol or Pedi Dosage 2005-02-27 00:00:00 Completed [facility] Pneumococcal 13 Conjugate, PCV13 (Prevnar 13) 2005-02-27 00:00:00 Completed [facility] Polio (IPV/OPV) 2005-02-27 00:00:00 Completed [facility] DTAP 2005-02-27 00:00:00 Completed [facility] HIB 4 Dose Schedule 2005-02-27 00:00:00 Completed [facility] Hep B, Adol or Pedi Dosage 2005-02-27 00:00:00 Completed [facility] Pneumococcal 13 Conjugate, PCV13 (Prevnar 13) 2005-02-27 00:00:00 Completed [facility] Polio (IPV/OPV) 2005-02-27 00:00:00 Completed [facility] DTAP 2005-02-27 00:00:00 Completed [facility] HIB 4 Dose Schedule 2005-02-27 00:00:00 Completed [facility] Hep B, Adol or Pedi Dosage 2005-02-27 00:00:00 Completed [facility] Pneumococcal 13 Conjugate, PCV13 (Prevnar 13) 2005-02-27 00:00:00 Completed [facility] Polio (IPV/OPV) 2005-02-27 00:00:00 Completed [facility] DTAP 2005-02-27 00:00:00 Completed [facility] HIB 4 Dose Schedule 2005-02-27 00:00:00 Completed [facility] Hep B, Adol or Pedi Dosage 2005-02-27 00:00:00 Completed [facility] Pneumococcal 13 Conjugate, PCV13 (Prevnar 13) 2005-02-27 00:00:00 Completed [facility] Polio (IPV/OPV) 2005-02-27 00:00:00 Completed [facility] DTAP 2005-02-27 00:00:00 Completed [facility] HIB 4 Dose Schedule 2005-02-27 00:00:00 Completed [facility] Hep B, Adol or Pedi Dosage 2005-02-27 00:00:00 Completed [facility] Pneumococcal 13 Conjugate, PCV13 (Prevnar 13) 2005-02-27 00:00:00 Completed [facility] Polio (IPV/OPV) 2005-02-27 00:00:00 Completed [facility] DTAP 2005-02-27 00:00:00 Completed [facility] HIB 4 Dose Schedule 2005-02-27 00:00:00 Completed [facility] Hep B, Adol or Pedi Dosage 2005-02-27 00:00:00 Completed [facility] Pneumococcal 13 Conjugate, PCV13 (Prevnar 13) 2005-02-27 00:00:00 Completed [facility] Polio (IPV/OPV) 2005-02-27 00:00:00 Completed [facility] DTAP 2005-02-27 00:00:00 Completed [facility] HIB 4 Dose Schedule 2005-02-27 00:00:00 Completed [facility] Hep B, Adol or Pedi Dosage 2005-02-27 00:00:00 Completed [facility] Pneumococcal 13 Conjugate, PCV13 (Prevnar 13) 2005-02-27 00:00:00 Completed [facility] Polio (IPV/OPV) 2005-02-27 00:00:00 Completed [facility] DTAP 2005-02-27 00:00:00 Completed HIB 4 Dose Schedule 2004 00:00:00 Completed Hep B, Adol or Pedi Dosage 2004 00:00:00 Completed Pneumococcal 13 Conjugate, PCV13 (Prevnar 13) 2004 00:00:00 Completed Polio (IPV/OPV) 2004 00:00:00 Completed DTAP 2004 00:00:00 Completed [facility] HIB 4 Dose Schedule 2004 00:00:00 Completed [facility] Hep B, Adol or Pedi Dosage 2004 00:00:00 Completed [facility] Pneumococcal 13 Conjugate, PCV13 (Prevnar 13) 2004 00:00:00 Completed [facility] Polio (IPV/OPV) 2004 00:00:00 Completed [facility] DTAP 2004 00:00:00 Completed [facility] HIB 4 Dose Schedule 2004 00:00:00 Completed [facility] Hep B, Adol or Pedi Dosage 2004 00:00:00 Completed [facility] Pneumococcal 13 Conjugate, PCV13 (Prevnar 13) 2004 00:00:00 Completed [facility] Polio (IPV/OPV) 2004 00:00:00 Completed [facility] DTAP 2004 00:00:00 Completed [facility] HIB 4 Dose Schedule 2004 00:00:00 Completed [facility] Hep B, Adol or Pedi Dosage 2004 00:00:00 Completed [facility] Pneumococcal 13 Conjugate, PCV13 (Prevnar 13) 2004 00:00:00 Completed [facility] Polio (IPV/OPV) 2004 00:00:00 Completed [facility] DTAP 2004 00:00:00 Completed [facility] HIB 4 Dose Schedule 2004 00:00:00 Completed [facility] Hep B, Adol or Pedi Dosage 2004 00:00:00 Completed [facility] Pneumococcal 13 Conjugate, PCV13 (Prevnar 13) 2004 00:00:00 Completed [facility] Polio (IPV/OPV) 2004 00:00:00 Completed [facility] DTAP 2004 00:00:00 Completed [facility] HIB 4 Dose Schedule 2004 00:00:00 Completed [facility] Hep B, Adol or Pedi Dosage 2004 00:00:00 Completed [facility] Pneumococcal 13 Conjugate, PCV13 (Prevnar 13) 2004 00:00:00 Completed [facility] Polio (IPV/OPV) 2004 00:00:00 Completed [facility] DTAP 2004 00:00:00 Completed [facility] HIB 4 Dose Schedule 2004 00:00:00 Completed [facility] Hep B, Adol or Pedi Dosage 2004 00:00:00 Completed [facility] Pneumococcal 13 Conjugate, PCV13 (Prevnar 13) 2004 00:00:00 Completed [facility] Polio (IPV/OPV) 2004 00:00:00 Completed [facility] DTAP 2004 00:00:00 Completed [facility] HIB 4 Dose Schedule 2004 00:00:00 Completed [facility] Hep B, Adol or Pedi Dosage 2004 00:00:00 Completed [facility] Pneumococcal 13 Conjugate, PCV13 (Prevnar 13) 2004 00:00:00 Completed [facility] Polio (IPV/OPV) 2004 00:00:00 Completed [facility] DTAP 2004 00:00:00 Completed [facility] HIB 4 Dose Schedule 2004 00:00:00 Completed [facility] Hep B, Adol or Pedi Dosage 2004 00:00:00 Completed [facility] Pneumococcal 13 Conjugate, PCV13 (Prevnar 13) 2004 00:00:00 Completed [facility] Polio (IPV/OPV) 2004 00:00:00 Completed [facility] DTAP 2004 00:00:00 Completed [facility] HIB 4 Dose Schedule 2004 00:00:00 Completed [facility] Hep B, Adol or Pedi Dosage 2004 00:00:00 Completed [facility] Pneumococcal 13 Conjugate, PCV13 (Prevnar 13) 2004 00:00:00 Completed [facility] Polio (IPV/OPV) 2004 00:00:00 Completed [facility] DTAP 2004 00:00:00 Completed [facility] HIB 4 Dose Schedule 2004 00:00:00 Completed [facility] Hep B, Adol or Pedi Dosage 2004 00:00:00 Completed [facility] Pneumococcal 13 Conjugate, PCV13 (Prevnar 13) 2004 00:00:00 Completed [facility] Polio (IPV/OPV) 2004 00:00:00 Completed [facility] DTAP 2004 00:00:00 Completed [facility] HIB 4 Dose Schedule 2004 00:00:00 Completed [facility] Hep B, Adol or Pedi Dosage 2004 00:00:00 Completed [facility] Pneumococcal 13 Conjugate, PCV13 (Prevnar 13) 2004 00:00:00 Completed [facility] Polio (IPV/OPV) 2004 00:00:00 Completed [facility] DTAP 2004 00:00:00 Completed [facility] HIB 4 Dose Schedule 2004 00:00:00 Completed [facility] Hep B, Adol or Pedi Dosage 2004 00:00:00 Completed [facility] Pneumococcal 13 Conjugate, PCV13 (Prevnar 13) 2004 00:00:00 Completed [facility] Polio (IPV/OPV) 2004 00:00:00 Completed [facility] DTAP 2004 00:00:00 Completed [facility] HIB 4 Dose Schedule 2004 00:00:00 Completed [facility] Hep B, Adol or Pedi Dosage 2004 00:00:00 Completed [facility] Pneumococcal 13 Conjugate, PCV13 (Prevnar 13) 2004 00:00:00 Completed [facility] Polio (IPV/OPV) 2004 00:00:00 Completed [facility] DTAP 2004 00:00:00 Completed [facility] HIB 4 Dose Schedule 2004 00:00:00 Completed [facility] Hep B, Adol or Pedi Dosage 2004 00:00:00 Completed [facility] Pneumococcal 13 Conjugate, PCV13 (Prevnar 13) 2004 00:00:00 Completed [facility] Polio (IPV/OPV) 2004 00:00:00 Completed [facility] DTAP 2004 00:00:00 Completed [facility] HIB 4 Dose Schedule 2004 00:00:00 Completed [facility] Hep B, Adol or Pedi Dosage 2004 00:00:00 Completed [facility] Pneumococcal 13 Conjugate, PCV13 (Prevnar 13) 2004 00:00:00 Completed [facility] Polio (IPV/OPV) 2004 00:00:00 Completed [facility] DTAP 2004 00:00:00 Completed [facility] HIB 4 Dose Schedule 2004 00:00:00 Completed [facility] Hep B, Adol or Pedi Dosage 2004 00:00:00 Completed [facility] Pneumococcal 13 Conjugate, PCV13 (Prevnar 13) 2004 00:00:00 Completed [facility] Polio (IPV/OPV) 2004 00:00:00 Completed [facility] DTAP 2004 00:00:00 Completed [facility] HIB 4 Dose Schedule 2004 00:00:00 Completed [facility] Hep B, Adol or Pedi Dosage 2004 00:00:00 Completed [facility] Pneumococcal 13 Conjugate, PCV13 (Prevnar 13) 2004 00:00:00 Completed [facility] Polio (IPV/OPV) 2004 00:00:00 Completed [facility] DTAP 2004 00:00:00 Completed [facility] HIB 4 Dose Schedule 2004 00:00:00 Completed [facility] Hep B, Adol or Pedi Dosage 2004 00:00:00 Completed [facility] Pneumococcal 13 Conjugate, PCV13 (Prevnar 13) 2004 00:00:00 Completed [facility] Polio (IPV/OPV) 2004 00:00:00 Completed [facility] DTAP 2004 00:00:00 Completed [facility] HIB 4 Dose Schedule 2004 00:00:00 Completed [facility] Hep B, Adol or Pedi Dosage 2004 00:00:00 Completed [facility] Pneumococcal 13 Conjugate, PCV13 (Prevnar 13) 2004 00:00:00 Completed [facility] Polio (IPV/OPV) 2004 00:00:00 Completed [facility] DTAP 2004 00:00:00 Completed [facility] HIB 4 Dose Schedule 2004 00:00:00 Completed [facility] Hep B, Adol or Pedi Dosage 2004 00:00:00 Completed [facility] Pneumococcal 13 Conjugate, PCV13 (Prevnar 13) 2004 00:00:00 Completed [facility] Polio (IPV/OPV) 2004 00:00:00 Completed [facility] DTAP 2004 00:00:00 Completed [facility] HIB 4 Dose Schedule 2004 00:00:00 Completed [facility] Hep B, Adol or Pedi Dosage 2004 00:00:00 Completed [facility] Pneumococcal 13 Conjugate, PCV13 (Prevnar 13) 2004 00:00:00 Completed [facility] Polio (IPV/OPV) 2004 00:00:00 Completed [facility] DTAP 2004 00:00:00 Completed [facility] HIB 4 Dose Schedule 2004 00:00:00 Completed [facility] Hep B, Adol or Pedi Dosage 2004 00:00:00 Completed [facility] Pneumococcal 13 Conjugate, PCV13 (Prevnar 13) 2004 00:00:00 Completed [facility] Polio (IPV/OPV) 2004 00:00:00 Completed [facility] DTAP 2004 00:00:00 Completed [facility] HIB 4 Dose Schedule 2004 00:00:00 Completed [facility] Hep B, Adol or Pedi Dosage 2004 00:00:00 Completed [facility] Pneumococcal 13 Conjugate, PCV13 (Prevnar 13) 2004 00:00:00 Completed [facility] Polio (IPV/OPV) 2004 00:00:00 Completed [facility] DTAP 2004 00:00:00 Completed [facility] HIB 4 Dose Schedule 2004 00:00:00 Completed [facility] Hep B, Adol or Pedi Dosage 2004 00:00:00 Completed [facility] Pneumococcal 13 Conjugate, PCV13 (Prevnar 13) 2004 00:00:00 Completed [facility] Polio (IPV/OPV) 2004 00:00:00 Completed [facility] DTAP 2004 00:00:00 Completed [facility] HIB 4 Dose Schedule 2004 00:00:00 Completed [facility] Hep B, Adol or Pedi Dosage 2004 00:00:00 Completed [facility] Pneumococcal 13 Conjugate, PCV13 (Prevnar 13) 2004 00:00:00 Completed [facility] Polio (IPV/OPV) 2004 00:00:00 Completed [facility] DTAP 2004 00:00:00 Completed [facility] HIB 4 Dose Schedule 2004 00:00:00 Completed [facility] Hep B, Adol or Pedi Dosage 2004 00:00:00 Completed [facility] Pneumococcal 13 Conjugate, PCV13 (Prevnar 13) 2004 00:00:00 Completed [facility] Polio (IPV/OPV) 2004 00:00:00 Completed [facility] DTAP 2004 00:00:00 Completed [facility] HIB 4 Dose Schedule 2004 00:00:00 Completed [facility] Hep B, Adol or Pedi Dosage 2004 00:00:00 Completed [facility] Pneumococcal 13 Conjugate, PCV13 (Prevnar 13) 2004 00:00:00 Completed [facility] Polio (IPV/OPV) 2004 00:00:00 Completed [facility] DTAP 2004 00:00:00 Completed [facility] HIB 4 Dose Schedule 2004 00:00:00 Completed [facility] Hep B, Adol or Pedi Dosage 2004 00:00:00 Completed [facility] Pneumococcal 13 Conjugate, PCV13 (Prevnar 13) 2004 00:00:00 Completed [facility] Polio (IPV/OPV) 2004 00:00:00 Completed [facility] DTAP 2004 00:00:00 Completed [facility] HIB 4 Dose Schedule 2004 00:00:00 Completed [facility] Hep B, Adol or Pedi Dosage 2004 00:00:00 Completed [facility] Pneumococcal 13 Conjugate, PCV13 (Prevnar 13) 2004 00:00:00 Completed [facility] Polio (IPV/OPV) 2004 00:00:00 Completed [facility] DTAP 2004 00:00:00 Completed [facility] HIB 4 Dose Schedule 2004 00:00:00 Completed [facility] Hep B, Adol or Pedi Dosage 2004 00:00:00 Completed [facility] Pneumococcal 13 Conjugate, PCV13 (Prevnar 13) 2004 00:00:00 Completed [facility] Polio (IPV/OPV) 2004 00:00:00 Completed [facility] DTAP 2004 00:00:00 Completed [facility] HIB 4 Dose Schedule 2004 00:00:00 Completed [facility] Hep B, Adol or Pedi Dosage 2004 00:00:00 Completed [facility] Pneumococcal 13 Conjugate, PCV13 (Prevnar 13) 2004 00:00:00 Completed [facility] Polio (IPV/OPV) 2004 00:00:00 Completed [facility] DTAP 2004 00:00:00 Completed [facility] HIB 4 Dose Schedule 2004 00:00:00 Completed [facility] Hep B, Adol or Pedi Dosage 2004 00:00:00 Completed [facility] Pneumococcal 13 Conjugate, PCV13 (Prevnar 13) 2004 00:00:00 Completed [facility] Polio (IPV/OPV) 2004 00:00:00 Completed [facility] DTAP 2004 00:00:00 Completed [facility] HIB 4 Dose Schedule 2004 00:00:00 Completed [facility] Hep B, Adol or Pedi Dosage 2004 00:00:00 Completed [facility] Pneumococcal 13 Conjugate, PCV13 (Prevnar 13) 2004 00:00:00 Completed [facility] Polio (IPV/OPV) 2004 00:00:00 Completed [facility] DTAP 2004 00:00:00 Completed HIB 4 Dose Schedule 2004 00:00:00 Completed Hep B, Adol or Pedi Dosage 2004 00:00:00 Completed Pneumococcal 13 Conjugate, PCV13 (Prevnar 13) 2004 00:00:00 Completed Polio (IPV/OPV) 2004 00:00:00 Completed DTAP 2004 00:00:00 Completed [facility] HIB 4 Dose Schedule 2004 00:00:00 Completed [facility] Hep B, Adol or Pedi Dosage 2004 00:00:00 Completed [facility] Pneumococcal 13 Conjugate, PCV13 (Prevnar 13) 2004 00:00:00 Completed [facility] Polio (IPV/OPV) 2004 00:00:00 Completed [facility] DTAP 2004 00:00:00 Completed [facility] HIB 4 Dose Schedule 2004 00:00:00 Completed [facility] Hep B, Adol or Pedi Dosage 2004 00:00:00 Completed [facility] Pneumococcal 13 Conjugate, PCV13 (Prevnar 13) 2004 00:00:00 Completed [facility] Polio (IPV/OPV) 2004 00:00:00 Completed [facility] DTAP 2004 00:00:00 Completed [facility] HIB 4 Dose Schedule 2004 00:00:00 Completed [facility] Hep B, Adol or Pedi Dosage 2004 00:00:00 Completed [facility] Pneumococcal 13 Conjugate, PCV13 (Prevnar 13) 2004 00:00:00 Completed [facility] Polio (IPV/OPV) 2004 00:00:00 Completed [facility] DTAP 2004 00:00:00 Completed [facility] HIB 4 Dose Schedule 2004 00:00:00 Completed [facility] Hep B, Adol or Pedi Dosage 2004 00:00:00 Completed [facility] Pneumococcal 13 Conjugate, PCV13 (Prevnar 13) 2004 00:00:00 Completed [facility] Polio (IPV/OPV) 2004 00:00:00 Completed [facility] DTAP 2004 00:00:00 Completed [facility] HIB 4 Dose Schedule 2004 00:00:00 Completed [facility] Hep B, Adol or Pedi Dosage 2004 00:00:00 Completed [facility] Pneumococcal 13 Conjugate, PCV13 (Prevnar 13) 2004 00:00:00 Completed [facility] Polio (IPV/OPV) 2004 00:00:00 Completed [facility] DTAP 2004 00:00:00 Completed [facility] HIB 4 Dose Schedule 2004 00:00:00 Completed [facility] Hep B, Adol or Pedi Dosage 2004 00:00:00 Completed [facility] Pneumococcal 13 Conjugate, PCV13 (Prevnar 13) 2004 00:00:00 Completed [facility] Polio (IPV/OPV) 2004 00:00:00 Completed [facility] DTAP 2004 00:00:00 Completed [facility] HIB 4 Dose Schedule 2004 00:00:00 Completed [facility] Hep B, Adol or Pedi Dosage 2004 00:00:00 Completed [facility] Pneumococcal 13 Conjugate, PCV13 (Prevnar 13) 2004 00:00:00 Completed [facility] Polio (IPV/OPV) 2004 00:00:00 Completed [facility] DTAP 2004 00:00:00 Completed [facility] HIB 4 Dose Schedule 2004 00:00:00 Completed [facility] Hep B, Adol or Pedi Dosage 2004 00:00:00 Completed [facility] Pneumococcal 13 Conjugate, PCV13 (Prevnar 13) 2004 00:00:00 Completed [facility] Polio (IPV/OPV) 2004 00:00:00 Completed [facility] DTAP 2004 00:00:00 Completed [facility] HIB 4 Dose Schedule 2004 00:00:00 Completed [facility] Hep B, Adol or Pedi Dosage 2004 00:00:00 Completed [facility] Pneumococcal 13 Conjugate, PCV13 (Prevnar 13) 2004 00:00:00 Completed [facility] Polio (IPV/OPV) 2004 00:00:00 Completed [facility] DTAP 2004 00:00:00 Completed [facility] HIB 4 Dose Schedule 2004 00:00:00 Completed [facility] Hep B, Adol or Pedi Dosage 2004 00:00:00 Completed [facility] Pneumococcal 13 Conjugate, PCV13 (Prevnar 13) 2004 00:00:00 Completed [facility] Polio (IPV/OPV) 2004 00:00:00 Completed [facility] DTAP 2004 00:00:00 Completed [facility] HIB 4 Dose Schedule 2004 00:00:00 Completed [facility] Hep B, Adol or Pedi Dosage 2004 00:00:00 Completed [facility] Pneumococcal 13 Conjugate, PCV13 (Prevnar 13) 2004 00:00:00 Completed [facility] Polio (IPV/OPV) 2004 00:00:00 Completed [facility] DTAP 2004 00:00:00 Completed [facility] HIB 4 Dose Schedule 2004 00:00:00 Completed [facility] Hep B, Adol or Pedi Dosage 2004 00:00:00 Completed [facility] Pneumococcal 13 Conjugate, PCV13 (Prevnar 13) 2004 00:00:00 Completed [facility] Polio (IPV/OPV) 2004 00:00:00 Completed [facility] DTAP 2004 00:00:00 Completed [facility] HIB 4 Dose Schedule 2004 00:00:00 Completed [facility] Hep B, Adol or Pedi Dosage 2004 00:00:00 Completed [facility] Pneumococcal 13 Conjugate, PCV13 (Prevnar 13) 2004 00:00:00 Completed [facility] Polio (IPV/OPV) 2004 00:00:00 Completed [facility] DTAP 2004 00:00:00 Completed [facility] HIB 4 Dose Schedule 2004 00:00:00 Completed [facility] Hep B, Adol or Pedi Dosage 2004 00:00:00 Completed [facility] Pneumococcal 13 Conjugate, PCV13 (Prevnar 13) 2004 00:00:00 Completed [facility] Polio (IPV/OPV) 2004 00:00:00 Completed [facility] DTAP 2004 00:00:00 Completed [facility] HIB 4 Dose Schedule 2004 00:00:00 Completed [facility] Hep B, Adol or Pedi Dosage 2004 00:00:00 Completed [facility] Pneumococcal 13 Conjugate, PCV13 (Prevnar 13) 2004 00:00:00 Completed [facility] Polio (IPV/OPV) 2004 00:00:00 Completed [facility] DTAP 2004 00:00:00 Completed [facility] HIB 4 Dose Schedule 2004 00:00:00 Completed [facility] Hep B, Adol or Pedi Dosage 2004 00:00:00 Completed [facility] Pneumococcal 13 Conjugate, PCV13 (Prevnar 13) 2004 00:00:00 Completed [facility] Polio (IPV/OPV) 2004 00:00:00 Completed [facility] DTAP 2004 00:00:00 Completed [facility] HIB 4 Dose Schedule 2004 00:00:00 Completed [facility] Hep B, Adol or Pedi Dosage 2004 00:00:00 Completed [facility] Pneumococcal 13 Conjugate, PCV13 (Prevnar 13) 2004 00:00:00 Completed [facility] Polio (IPV/OPV) 2004 00:00:00 Completed [facility] DTAP 2004 00:00:00 Completed [facility] HIB 4 Dose Schedule 2004 00:00:00 Completed [facility] Hep B, Adol or Pedi Dosage 2004 00:00:00 Completed [facility] Pneumococcal 13 Conjugate, PCV13 (Prevnar 13) 2004 00:00:00 Completed [facility] Polio (IPV/OPV) 2004 00:00:00 Completed [facility] DTAP 2004 00:00:00 Completed [facility] HIB 4 Dose Schedule 2004 00:00:00 Completed [facility] Hep B, Adol or Pedi Dosage 2004 00:00:00 Completed [facility] Pneumococcal 13 Conjugate, PCV13 (Prevnar 13) 2004 00:00:00 Completed [facility] Polio (IPV/OPV) 2004 00:00:00 Completed [facility] DTAP 2004 00:00:00 Completed [facility] HIB 4 Dose Schedule 2004 00:00:00 Completed [facility] Hep B, Adol or Pedi Dosage 2004 00:00:00 Completed [facility] Pneumococcal 13 Conjugate, PCV13 (Prevnar 13) 2004 00:00:00 Completed [facility] Polio (IPV/OPV) 2004 00:00:00 Completed [facility] DTAP 2004 00:00:00 Completed [facility] HIB 4 Dose Schedule 2004 00:00:00 Completed [facility] Hep B, Adol or Pedi Dosage 2004 00:00:00 Completed [facility] Pneumococcal 13 Conjugate, PCV13 (Prevnar 13) 2004 00:00:00 Completed [facility] Polio (IPV/OPV) 2004 00:00:00 Completed [facility] DTAP 2004 00:00:00 Completed [facility] HIB 4 Dose Schedule 2004 00:00:00 Completed [facility] Hep B, Adol or Pedi Dosage 2004 00:00:00 Completed [facility] Pneumococcal 13 Conjugate, PCV13 (Prevnar 13) 2004 00:00:00 Completed [facility] Polio (IPV/OPV) 2004 00:00:00 Completed [facility] DTAP 2004 00:00:00 Completed [facility] HIB 4 Dose Schedule 2004 00:00:00 Completed [facility] Hep B, Adol or Pedi Dosage 2004 00:00:00 Completed [facility] Pneumococcal 13 Conjugate, PCV13 (Prevnar 13) 2004 00:00:00 Completed [facility] Polio (IPV/OPV) 2004 00:00:00 Completed [facility] DTAP 2004 00:00:00 Completed [facility] HIB 4 Dose Schedule 2004 00:00:00 Completed [facility] Hep B, Adol or Pedi Dosage 2004 00:00:00 Completed [facility] Pneumococcal 13 Conjugate, PCV13 (Prevnar 13) 2004 00:00:00 Completed [facility] Polio (IPV/OPV) 2004 00:00:00 Completed [facility] DTAP 2004 00:00:00 Completed [facility] HIB 4 Dose Schedule 2004 00:00:00 Completed [facility] Hep B, Adol or Pedi Dosage 2004 00:00:00 Completed [facility] Pneumococcal 13 Conjugate, PCV13 (Prevnar 13) 2004 00:00:00 Completed [facility] Polio (IPV/OPV) 2004 00:00:00 [facility] [place] DTAP 2004 00:00:00 Completed [facility] HIB 4 Dose Schedule 2004 00:00:00 Completed [facility] [place] Hep B, Adol or Pedi Dosage 2004 00:00:00 Completed [facility] [place] Pneumococcal 13 Conjugate, PCV13 (Prevnar 13) 2004 00:00:00 Completed [facility] [place] Polio (IPV/OPV) 2004 00:00:00 Completed [facility] [place] DTAP 2004 00:00:00 Completed [facility] [place] HIB 4 Dose Schedule 2004 00:00:00 Completed [facility] [place] Hep B, Adol or Pedi Dosage 2004 00:00:00 Completed [facility] [place] Pneumococcal 13 Conjugate, PCV13 (Prevnar 13) 2004 00:00:00 Completed [facility] [place] Polio (IPV/OPV) 2004 00:00:00 Completed [facility] [place] DTAP 2004 00:00:00 Completed [facility] [place] HIB 4 Dose Schedule 2004 00:00:00 Completed [facility] [place] Hep B, Adol or Pedi Dosage 2004 00:00:00 Completed [facility] [place] Pneumococcal 13 Conjugate, PCV13 (Prevnar 13) 2004 00:00:00 Completed [facility] [place] Polio (IPV/OPV) 2004 00:00:00 Completed [facility] [place] DTAP 2004 00:00:00 Completed [facility] [place] HIB 4 Dose Schedule 2004 00:00:00 Completed [facility] [place] Hep B, Adol or Pedi Dosage 2004 00:00:00 Completed [facility] [place] Pneumococcal 13 Conjugate, PCV13 (Prevnar 13) 2004 00:00:00 Completed [facility] [place] Polio (IPV/OPV) 2004 00:00:00 Completed [facility] [place] DTAP 2004 00:00:00 Completed [facility] [place] HIB 4 Dose Schedule 2004 00:00:00 Completed [facility] [place] Hep B, Adol or Pedi Dosage 2004 00:00:00 Completed [facility] [place] Pneumococcal 13 Conjugate, PCV13 (Prevnar 13) 2004 00:00:00 Completed [facility] [place] Polio (IPV/OPV) 2004 00:00:00 Completed [facility] [place] DTAP 2004 00:00:00 Completed [facility] [place] HIB 4 Dose Schedule 2004 00:00:00 Completed [facility] [place] Hep B, Adol or Pedi Dosage 2004 00:00:00 Completed [facility] [place] Pneumococcal 13 Conjugate, PCV13 (Prevnar 13) 2004 00:00:00 Completed [facility] [place] Polio (IPV/OPV) 2004 00:00:00 Completed [facility] [place] DTAP 2004 00:00:00 Completed [facility] [place] HIB 4 Dose Schedule 2004 00:00:00 Completed [facility] [place] Hep B, Adol or Pedi Dosage 2004 00:00:00 Completed [facility] [place] Pneumococcal 13 Conjugate, PCV13 (Prevnar 13) 2004 00:00:00 Completed [facility] [place] Polio (IPV/OPV) 2004 00:00:00 Completed [facility] [place] DTAP 2004 00:00:00 Completed [facility] [place] HIB 4 Dose Schedule 2004 00:00:00 Completed [facility] [place] Hep B, Adol or Pedi Dosage 2004 00:00:00 Completed [facility] [place] Pneumococcal 13 Conjugate, PCV13 (Prevnar 13) 2004 00:00:00 Completed [facility] [place] Polio (IPV/OPV) 2004 00:00:00 Completed [facility] [place] DTAP 2004 00:00:00 Completed [facility] Hep B, Adol or Pedi Dosage 2004 00:00:00 Completed Hep B, Adol or Pedi Dosage 2004 00:00:00 Completed [facility] [place] Hep B, Adol or Pedi Dosage 2004 00:00:00 Completed [facility] [place] Hep B, Adol or Pedi Dosage 2004 00:00:00 Completed [facility] [place] Hep B, Adol or Pedi Dosage 2004 00:00:00 Completed [facility] [place] Hep B, Adol or Pedi Dosage 2004 00:00:00 Completed [facility] [place] Hep B, Adol or Pedi Dosage 2004 00:00:00 Completed [facility] [place] Hep B, Adol or Pedi Dosage 2004 00:00:00 Completed [facility] [place] Hep B, Adol or Pedi Dosage 2004 00:00:00 Completed [facility] [place] Hep B, Adol or Pedi Dosage 2004 00:00:00 Completed [facility] [place] Hep B, Adol or Pedi Dosage 2004 00:00:00 Completed [facility] [place] Hep B, Adol or Pedi Dosage 2004 00:00:00 Completed [facility] [place] Hep B, Adol or Pedi Dosage 2004 00:00:00 Completed [facility] [place] Hep B, Adol or Pedi Dosage 2004 00:00:00 Completed [facility] [place] Hep B, Adol or Pedi Dosage 2004 00:00:00 Completed [facility] [place] Hep B, Adol or Pedi Dosage 2004 00:00:00 Completed [facility] [place] Hep B, Adol or Pedi Dosage 2004 00:00:00 Completed [facility] [place] Hep B, Adol or Pedi Dosage 2004 00:00:00 Completed [facility] [place] Hep B, Adol or Pedi Dosage 2004 00:00:00 Completed [facility] [place] Hep B, Adol or Pedi Dosage 2004 00:00:00 Completed [facility] [place] Hep B, Adol or Pedi Dosage 2004 00:00:00 Completed [facility] [place] Hep B, Adol or Pedi Dosage 2004 00:00:00 Completed [facility] [place] Hep B, Adol or Pedi Dosage 2004 00:00:00 Completed [facility] [place] Hep B, Adol or Pedi Dosage 2004 00:00:00 Completed [facility] [place] Hep B, Adol or Pedi Dosage 2004 00:00:00 Completed [facility] [place] Hep B, Adol or Pedi Dosage 2004 00:00:00 Completed [facility] [place] Hep B, Adol or Pedi Dosage 2004 00:00:00 Completed [facility] [place] Hep B, Adol or Pedi Dosage 2004 00:00:00 Completed [facility] [place] Hep B, Adol or Pedi Dosage 2004 00:00:00 Completed [facility] [place] Hep B, Adol or Pedi Dosage 2004 00:00:00 Completed [facility] [place] Hep B, Adol or Pedi Dosage 2004 00:00:00 Completed [facility] [place] Hep B, Adol or Pedi Dosage 2004 00:00:00 Completed [facility] [place] Hep B, Adol or Pedi Dosage 2004 00:00:00 Completed [facility] [place] Hep B, Adol or Pedi Dosage 2004 00:00:00 Completed [facility] [place] Influenza Virus Vaccine Quad .5 mL IM 6+ MO (FLUZONE/FLULAVAL/FL UARIX) Unknown Completed [facility] [place] DTAP Unknown Completed [facility] [place] HIB 4 Dose Schedule Unknown Completed [facility] [place] HEPATITIS A Unknown Completed [facility] Hep B, Adol or Pedi Dosage Unknown Completed [facility] [place] Meningococcal Polysaccharide (groups A, C, Y and W-135) conjugate vaccine (MCV4P) Unknown Completed [facility] MMR Unknown Completed [facility] [place] Pneumococcal 13 Conjugate, PCV13 (Prevnar 13) Unknown Completed [facility] [place] Polio (IPV/OPV) Unknown Completed [facility] TDAP Unknown Completed [facility] [place] Varicella (varivax)(chicken pox) Unknown Completed [facility] [place] HPV9 Unknown Completed [facility] [place] Pneumococcal Polysaccharide, PPSV23 (PNEUMOVAX) Unknown Completed [facility] Influenza Virus Vaccine Quad .5 mL IM 6+ MO (FLUZONE/FLULAVAL/FL UARIX) Unknown Completed [facility] [place] DTAP Unknown Completed [facility] [place] HIB 4 Dose Schedule Unknown Completed [facility] [place] HEPATITIS A Unknown Completed [facility] Hep B, Adol or Pedi Dosage Unknown Completed [facility] [place] Meningococcal Polysaccharide (groups A, C, Y and W-135) conjugate vaccine (MCV4P) Unknown Completed [facility] MMR Unknown Completed [facility] [place] Pneumococcal 13 Conjugate, PCV13 (Prevnar 13) Unknown Completed [facility] [place] Polio (IPV/OPV) Unknown Completed [facility] [place] TDAP Unknown Completed [facility] [place] Varicella (varivax)(chicken pox) Unknown Completed [facility] [place] HPV9 Unknown Completed [facility] [place] Pneumococcal Polysaccharide, PPSV23 (PNEUMOVAX) Unknown Completed [facility] Influenza Virus Vaccine Quad .5 mL IM 6+ MO (FLUZONE/FLULAVAL/FL UARIX) Unknown Completed [facility] [place] DTAP Unknown Completed [facility] HIB 4 Dose Schedule Unknown Completed [facility] [place] HEPATITIS A Unknown Completed [facility] Hep B, Adol or Pedi Dosage Unknown Completed [facility] [place] Meningococcal Polysaccharide (groups A, C, Y and W-135) conjugate vaccine (MCV4P) Unknown Completed [facility] MMR Unknown Completed [facility] [place] Pneumococcal 13 Conjugate, PCV13 (Prevnar 13) Unknown Completed [facility] [place] Polio (IPV/OPV) Unknown Completed [facility] [place] TDAP Unknown Completed [facility] [place] Varicella (varivax)(chicken pox) Unknown Completed [facility] [place] HPV9 Unknown Completed [facility] [place] Pneumococcal Polysaccharide, PPSV23 (PNEUMOVAX) Unknown Completed [facility] Pneumococcal Polysaccharide, PPSV23 (PNEUMOVAX) Unknown Completed [facility] Influenza Virus Vaccine Quad .5 mL IM 6+ MO (FLUZONE/FLULAVAL/FL UARIX) Unknown Completed [facility] [place] DTAP Unknown Completed [facility] HIB 4 Dose Schedule Unknown Completed [facility] [place] HEPATITIS A Unknown Completed [facility] Hep B, Adol or Pedi Dosage Unknown Completed [facility] [place] Meningococcal Polysaccharide (groups A, C, Y and W-135) conjugate vaccine (MCV4P) Unknown Completed [facility] MMR Unknown Completed [facility] [place] Pneumococcal 13 Conjugate, PCV13 (Prevnar 13) Unknown Completed [facility] [place] Polio (IPV/OPV) Unknown Completed [facility] [place] TDAP Unknown Completed [facility] [place] Varicella (varivax)(chicken pox) Unknown Completed [facility] [place] HPV9 Unknown Completed [facility] [place] Pneumococcal Polysaccharide, PPSV23 (PNEUMOVAX) Unknown Completed [facility] Influenza Virus Vaccine Quad .5 mL IM 6+ MO (FLUZONE/FLULAVAL/FL UARIX) Unknown Completed [facility] [place] DTAP Unknown Completed [facility] [place] HIB 4 Dose Schedule Unknown Completed [facility] [place] HEPATITIS A Unknown Completed [facility] Hep B, Adol or Pedi Dosage Unknown Completed [facility] [place] Meningococcal Polysaccharide (groups A, C, Y and W-135) conjugate vaccine (MCV4P) Unknown Completed [facility] MMR Unknown Completed [facility] [place] Pneumococcal 13 Conjugate, PCV13 (Prevnar 13) Unknown Completed [facility] [place] Polio (IPV/OPV) Unknown Completed [facility] [place] TDAP Unknown Completed [facility] [place] Varicella (varivax)(chicken pox) Unknown Completed [facility] [place] HPV9 Unknown Completed [facility] [place] Pneumococcal Polysaccharide, PPSV23 (PNEUMOVAX) Unknown Completed [facility] Influenza Virus Vaccine Quad .5 mL IM 6+ MO (FLUZONE/FLULAVAL/FL UARIX) Unknown Completed [facility] [place] DTAP Unknown Completed [facility] HIB 4 Dose Schedule Unknown Completed [facility] [place] HEPATITIS A Unknown Completed [facility] Hep B, Adol or Pedi Dosage Unknown Completed [facility] [place] Meningococcal Polysaccharide (groups A, C, Y and W-135) conjugate vaccine (MCV4P) Unknown Completed [facility] MMR Unknown Completed [facility] [place] Pneumococcal 13 Conjugate, PCV13 (Prevnar 13) Unknown Completed [facility] [place] Polio (IPV/OPV) Unknown Completed [facility] [place] TDAP Unknown Completed [facility] [place] Varicella (varivax)(chicken pox) Unknown Completed [facility] [place] HPV9 Unknown Completed [facility] [place] Influenza Virus Vaccine Quad .5 mL IM 6+ MO (FLUZONE/FLULAVAL/FL UARIX) Unknown Completed [facility] [place] DTAP Unknown Completed [facility] [place] HIB 4 Dose Schedule Unknown Completed [facility] [place] [facility]IS A [facility], [facility] Dos[facility] Unknown Completed [facility] [place] Meningococcal Polysaccharide (groups A, C, Y and W-135) conjugate vaccine (MCV4P) Unknown Completed [facility] MMR Unknown Completed [facility] [place] Pneumococcal 13 Conjugate, PCV13 (Prevnar 13) Unknown Completed [facility] [place] Polio (IPV/OPV) Unknown Completed [facility] TDAP Unknown Completed [facility] [place] Varicella (varivax)(chicken pox) Unknown Completed [facility] [place] HPV9 Unknown Completed [facility] [place] Pneumococcal Polysaccharide, PPSV23 (PNEUMOVAX) Unknown Completed [facility] Influenza Virus Vaccine Quad .5 mL IM 6+ MO (FLUZONE/FLULAVAL/FL UARIX) Unknown Completed [facility] [place] DTAP Unknown Completed [facility] [place] HIB 4 Dose Schedule Unknown Completed [facility] [place] HEPATITIS A Unknown Completed [facility] Hep B, Adol or Pedi Dosage Unknown Completed [facility] [place] Meningococcal Polysaccharide (groups A, C, Y and W-135) conjugate vaccine (MCV4P) Unknown Completed [facility] MMR Unknown Completed [facility] [place] Pneumococcal 13 Conjugate, PCV13 (Prevnar 13) Unknown Completed [facility] [place] Polio (IPV/OPV) Unknown Completed [facility] [place] TDAP Unknown Completed [facility] Varicella (varivax)(chicken pox) Unknown Completed [facility] HPV9 Unknown Completed [facility] [place] Pneumococcal Polysaccharide, PPSV23 (PNEUMOVAX) Unknown Completed [facility] Pneumococcal Polysaccharide, PPSV23 (PNEUMOVAX) Unknown Completed [facility] Influenza Virus Vaccine Quad .5 mL IM 6+ MO (FLUZONE/FLULAVAL/FL UARIX) Unknown Completed [facility] [place] DTAP Unknown Completed [facility] HIB 4 Dose Schedule Unknown Completed [facility] HEPATITIS A Unknown Completed [facility] Hep B, Adol or Pedi Dosage Unknown Completed [facility] [place] Meningococcal Polysaccharide (groups A, C, Y and W-135) conjugate vaccine (MCV4P) Unknown Completed [facility] MMR Unknown Completed [facility] [place] Pneumococcal 13 Conjugate, PCV13 (Prevnar 13) Unknown Completed [facility] Polio (IPV/OPV) Unknown Completed [facility] TDAP Unknown Completed [facility] Varicella (varivax)(chicken pox) Unknown Completed [facility] HPV9 Unknown Completed [facility] Influenza Virus Vaccine Quad .5 mL IM 6+ MO (FLUZONE/FLULAVAL/FL UARIX) Unknown Completed [facility] [place] DTAP Unknown Completed [facility] HIB 4 Dose Schedule Unknown Completed [facility] [place] HEPATITIS A Unknown Completed [facility] Hep B, Adol or Pedi Dosage Unknown Completed [facility] Meningococcal Polysaccharide (groups A, C, Y and W-135) conjugate vaccine (MCV4P) Unknown Completed [facility] MMR Unknown Completed [facility] Pneumococcal 13 Conjugate, PCV13 (Prevnar 13) Unknown Completed [facility] Polio (IPV/OPV) Unknown Completed [facility] TDAP Unknown Completed [facility] Varicella (varivax)(chicken pox) Unknown Completed [facility] HPV9 Unknown Completed [facility] Pneumococcal Polysaccharide, PPSV23 (PNEUMOVAX) Unknown Completed [facility] Influenza Virus Vaccine Quad .5 mL IM 6+ MO (FLUZONE/FLULAVAL/FL UARIX) Unknown Completed [facility] DTAP Unknown Completed [facility] HIB 4 Dose Schedule Unknown Completed [facility] HEPATITIS A Unknown Completed [facility] Hep B, Adol or Pedi Dosage Unknown Completed [facility] Meningococcal Polysaccharide (groups A, C, Y and W-135) conjugate vaccine (MCV4P) Unknown Completed [facility] MMR Unknown Completed [facility] Pneumococcal 13 Conjugate, PCV13 (Prevnar 13) Unknown Completed [facility] Polio (IPV/OPV) Unknown Completed [facility] TDAP Unknown Completed [facility] Varicella (varivax)(chicken pox) Unknown Completed [facility] HPV9 Unknown Completed [facility] Pneumococcal Polysaccharide, PPSV23 (PNEUMOVAX) Unknown Completed [facility] Influenza Virus Vaccine Quad .5 mL IM 6+ MO (FLUZONE/FLULAVAL/FL UARIX) Unknown Completed [facility] DTAP Unknown Completed [facility] HIB 4 Dose Schedule Unknown Completed [facility] HEPATITIS A Unknown Completed [facility] Hep B, Adol or Pedi Dosage Unknown Completed [facility] Meningococcal Polysaccharide (groups A, C, Y and W-135) conjugate vaccine (MCV4P) Unknown Completed [facility] MMR Unknown Completed [facility] Pneumococcal 13 Conjugate, PCV13 (Prevnar 13) Unknown Completed [facility] Polio (IPV/OPV) Unknown Completed [facility] TDAP Unknown Completed [facility] Varicella (varivax)(chicken pox) Unknown Completed [facility] HPV9 Unknown Completed [facility] Pneumococcal Polysaccharide, PPSV23 (PNEUMOVAX) Unknown Completed [facility] Influenza Virus Vaccine Quad .5 mL IM 6+ MO (FLUZONE/FLULAVAL/FL UARIX) Unknown Completed [facility] DTAP Unknown Completed [facility] HIB 4 Dose Schedule Unknown Completed [facility] [place] HEPATITIS A Unknown Completed [facility] Hep B, Adol or Pedi Dosage Unknown Completed [facility] [place] Meningococcal Polysaccharide (groups A, C, Y and W-135) conjugate vaccine (MCV4P) Unknown Completed [facility] MMR Unknown Completed [facility] [place] Pneumococcal 13 Conjugate, PCV13 (Prevnar 13) Unknown Completed [facility] Polio (IPV/OPV) Unknown Completed [facility] TDAP Unknown Completed [facility] Varicella (varivax)(chicken pox) Unknown Completed [facility] HPV9 Unknown Completed [facility] Pneumococcal Polysaccharide, PPSV23 (PNEUMOVAX) Unknown Completed [facility] Influenza Virus Vaccine Quad .5 mL IM 6+ MO (FLUZONE/FLULAVAL/FL UARIX) Unknown Completed [facility] [place] DTAP Unknown Completed [facility] HIB 4 Dose Schedule Unknown Completed [facility] [place] HEPATITIS A Unknown Completed [facility] Hep B, Adol or Pedi Dosage Unknown Completed [facility] [place] Meningococcal Polysaccharide (groups A, C, Y and W-135) conjugate vaccine (MCV4P) Unknown Completed [facility] MMR Unknown Completed [facility] [place] Pneumococcal 13 Conjugate, PCV13 (Prevnar 13) Unknown Completed [facility] [place] Polio (IPV/OPV) Unknown [facility] TD[facility] Completed [facility] [place] Varicella (varivax)(chicken pox) Unknown Completed [facility] HPV9 Unknown Completed [facility] [place] Pneumococcal Polysaccharide, PPSV23 (PNEUMOVAX) Unknown Completed [facility] Vital Signs Vital Name Observation Time Observation Value Comments S ource Systolic blood pressure 2024-08-11 14:29:00 96 mm[Hg] [facility] Diastolic blood pressure 2024-08-11 14:29:00 56 mm[Hg] [facility] Heart rate 2024-08-11 14:29:00 69 [facility] Body temperature 2024-08-11 14:29:00 37 Mery [facility] Respiratory rate 2024-08-11 14:29:00 17 /min [facility] Body height 2024-08-11 14:29:00 160 cm [facility] Body weight 2024-08-11 14:29:00 44.18 kg [facility] BMI 2024-08-11 14:29:00 17.25 kg/m2 [facility] Oxygen saturation in Arterial blood by Pulse oximetry 2024-08-11 14:29:00 100 /min [facility] Systolic blood pressure 2024-05-10 12:51:00 111 mm[Hg] [facility] Diastolic blood pressure 2024-05-10 12:51:00 72 mm[Hg] [facility] Heart rate 2024-05-10 12:51:00 108 /min [facility] Body temperature 2024-05-10 12:51:00 36.89 Mery [facility] [place] Respiratory rate 2024-05-10 12:51:00 16 /min [facility] Body height 2024-05-10 12:51:00 160 cm [facility] Body weight 2024-05-10 12:51:00 44.169 kg [facility] BMI 2024-05-10 12:51:00 17.25 kg/m2 [facility] Systolic blood pressure 2024-02-26 13:56:00 106 mm[Hg] [facility] Diastolic blood pressure 2024-02-26 13:56:00 70 mm[Hg] [facility] Heart rate 2024-02-26 13:56:00 87 /min [facility] Respiratory rate 2024-02-26 13:56:00 18 /min [facility] Body height 2024-02-26 13:56:00 158.8 cm [facility] Body weight 2024-02-26 13:56:00 42.638 kg [facility] BMI 2024-02-26 13:56:00 16.92 kg/m2 [facility] Systolic blood pressure 2024-02-15 16:03:00 102 mm[Hg] [facility] Diastolic blood pressure 2024-02-15 16:03:00 70 mm[Hg] [facility] Heart rate 2024-02-15 16:03:00 101 /min [facility] Body temperature 2024-02-15 16:03:00 36.5 Mery [facility] Respiratory rate 2024-02-15 16:03:00 16 /min [facility] Body height 2024-02-15 16:03:00 158.8 cm [facility] Body weight 2024-02-15 16:03:00 42.048 kg [facility] BMI 2024-02-15 16:03:00 16.68 kg/m2 [facility] Oxygen saturation in Arterial blood by Pulse oximetry 2024-02-15 16:03:00 98 /min [facility] Systolic blood pressure 2023-10-21 21:11:00 102 mm[Hg] [facility] Diastolic blood pressure 2023-10-21 21:11:00 70 mm[Hg] [facility] Heart rate 2023-10-21 21:11:00 111 /min [facility] Body temperature 2023-10-21 21:11:00 36.67 Mery [facility] Respiratory rate 2023-10-21 21:11:00 14 /min [facility] Body weight 2023-10-21 21:11:00 40.415 kg [facility] Oxygen saturation in Arterial blood by Pulse oximetry 2023-10-21 21:11:00 100 /min [facility] Systolic blood pressure 2023-08-05 14:04:00 125 mm[Hg] [facility] Diastolic blood pressure 2023-08-05 14:04:00 75 mm[Hg] [facility] Heart rate 2023-08-05 14:04:00 106 /min [facility] Respiratory rate 2023-08-05 14:04:00 16 /min [facility] Body weight 2023-08-05 14:04:00 40.484 kg [facility] Systolic blood pressure 2023-07-22 20:25:00 99 mm[Hg] [facility] Diastolic blood pressure 2023-07-22 20:25:00 61 mm[Hg] [facility] Heart rate 2023-07-22 20:25:00 72 /min [facility] Respiratory rate 2023-07-22 20:25:00 16 /min [facility] Body weight 2023-07-22 20:25:00 39.52 kg [facility] Oxygen saturation in Arterial blood by Pulse oximetry 2023-07-22 20:25:00 99 /min [facility] Systolic blood pressure 2023-06-08 14:13:00 102 mm[Hg] [facility] Diastolic blood pressure 2023-06-08 14:13:00 64 mm[Hg] [facility] Heart rate 2023-06-08 14:13:00 99 /min [facility] Body temperature 2023-06-08 14:13:00 36.5 Mery [facility] Respiratory rate 2023-06-08 14:13:00 16 /min [facility] Body height 2023-06-08 14:13:00 158.1 cm [facility] Body weight 2023-06-08 14:13:00 38.964 kg [facility] BMI 2023-06-08 14:13:00 15.59 kg/m2 [facility] Body mass index (BMI) [Percentile] Per age and sex 2023-06-08 14:13:00 0.06 % [facility] Oxygen saturation in Arterial blood by Pulse oximetry 2023-06-08 14:13:00 98 /min [facility] Systolic blood pressure 2023-06-01 18:31:00 102 mm[Hg] [facility] Diastolic blood pressure 2023-06-01 18:31:00 67 mm[Hg] [facility] Heart rate 2023-06-01 18:31:00 91 /min [facility] Body temperature 2023-06-01 18:31:00 36.67 Mery [facility] Respiratory rate 2023-06-01 18:31:00 16 /min [facility] Body weight 2023-06-01 18:31:00 39.094 kg Univ [facility] Systolic blood pressure 2023-03-30 17:46:00 113 mm[Hg] [facility] Diastolic blood pressure 2023-03-30 17:46:00 77 mm[Hg] [facility] Heart rate 2023-03-30 17:46:00 94 /min [facility] Body temperature 2023-03-30 17:46:00 36.61 Mery [facility] Respiratory rate 2023-03-30 17:46:00 15 /min [facility] Body weight 2023-03-30 17:46:00 39.735 kg Univ [facility] Systolic blood pressure 2023-02-27 17:55:00 98 mm[Hg] [facility] Diastolic blood pressure 2023-02-27 17:55:00 56 mm[Hg] [facility] Heart rate 2023-02-27 17:55:00 66 /min [facility] Body temperature 2023-02-27 17:55:00 36.72 Mery [facility] Respiratory rate 2023-02-27 17:55:00 18 /min [facility] Body weight 2023-02-27 17:55:00 39.418 kg Univ [facility] Oxygen saturation in Arterial blood by Pulse oximetry 2023-02-27 17:55:00 98 /min [facility] Systolic blood pressure 2023-01-28 19:56:00 113 mm[Hg] [facility] Diastolic blood pressure 2023-01-28 19:56:00 68 mm[Hg] [facility] Heart rate 2023-01-28 19:56:00 112 /min [facility] Body height 2023-01-28 19:56:00 160.7 cm [facility] Body weight 2023-01-28 19:56:00 39.055 kg [facility] BMI 2023-01-28 19:56:00 15.13 kg/m2 [facility] Body mass index (BMI) [Percentile] Per age and sex 2023-01-28 19:56:00 0.02 % [facility] Oxygen saturation in Arterial blood by Pulse oximetry 2023-01-28 19:56:00 99 /min [facility] Systolic blood pressure 2023-01-21 18:22:00 102 mm[Hg] [facility] Diastolic blood pressure 2023-01-21 18:22:00 69 mm[Hg] [facility] Heart rate 2023-01-21 18:22:00 97 /min [facility] Body temperature 2023-01-21 18:22:00 36.94 Mery [facility] Respiratory rate 2023-01-21 18:22:00 15 /min [facility] Body weight 2023-01-21 18:22:00 39.644 kg [facility] Oxygen saturation in Arterial blood by Pulse oximetry 2023-01-21 18:22:00 98 /min [facility] Systolic blood pressure 2023-01-02 13:48:00 108 mm[Hg] [facility] Diastolic blood pressure 2023-01-02 13:48:00 69 mm[Hg] [facility] Heart rate 2023-01-02 13:48:00 113 /min [facility] Body temperature 2023-01-02 13:48:00 37.22 Mery [facility] Respiratory rate 2023-01-02 13:48:00 15 /min [facility] Body weight 2023-01-02 13:48:00 39.554 kg [facility] Systolic blood pressure 2022-12-18 18:46:00 101 mm[Hg] [facility] Diastolic blood pressure 2022-12-18 18:46:00 70 mm[Hg] [facility] Heart rate 2022-12-18 18:46:00 98 /min [facility] Body temperature 2022-12-18 18:46:00 37 Mery [facility] Respiratory rate 2022-12-18 18:46:00 15 /min [facility] Body weight 2022-12-18 18:46:00 38.374 kg [facility] Oxygen saturation in Arterial blood by Pulse oximetry 2022-12-18 18:46:00 100 /min [facility] Systolic blood pressure 2022-12-02 18:55:00 108 mm[Hg] [facility] Diastolic blood pressure 2022-12-02 18:55:00 73 mm[Hg] [facility] Heart rate 2022-12-02 18:55:00 110 /min [facility] Body temperature 2022-12-02 18:55:00 36.94 Mery [facility] Respiratory rate 2022-12-02 18:55:00 19 /min [facility] Body weight 2022-12-02 18:55:00 38.828 kg [facility] Systolic blood pressure 2022-09-10 20:37:00 105 mm[Hg] [facility] Diastolic blood pressure 2022-09-10 20:37:00 73 mm[Hg] [facility] Heart rate 2022-09-10 20:37:00 119 /min [facility] Body temperature 2022-09-10 20:37:00 37.17 Mery [facility] Respiratory rate 2022-09-10 20:37:00 18 /min [facility] Body weight 2022-09-10 20:37:00 37.875 kg [facility] Oxygen saturation in Arterial blood by Pulse oximetry 2022-09-10 20:37:00 98 /min [facility] Systolic blood pressure 2022-06-16 15:22:00 103 mm[Hg] [facility] Diastolic blood pressure 2022-06-16 15:22:00 69 mm[Hg] [facility] Heart rate 2022-06-16 15:22:00 95 /min [facility] Body temperature 2022-06-16 15:22:00 36.44 Mery [facility] Respiratory rate 2022-06-16 15:22:00 18 /min [facility] Body weight 2022-06-16 15:22:00 39.508 kg [facility] in Arterial blood by Pulse oximetry 2022-06-16 15:22:00 99 /min [facility] Systolic blood pressure 2022-05-23 15:59:00 97 mm[Hg] [facility] Diastolic blood pressure 2022-05-23 15:59:00 68 mm[Hg] [facility] Heart rate 2022-05-23 15:59:00 96 /min [facility] Body temperature 2022-05-23 15:59:00 36.78 Mery [facility] Respiratory rate 2022-05-23 15:59:00 18 /min [facility] Body weight 2022-05-23 15:59:00 40.552 kg [facility] Oxygen saturation in Arterial blood by Pulse oximetry 2022-05-23 15:59:00 99 /min [facility] Systolic blood pressure 2022-05-21 18:28:00 102 mm[Hg] [facility] Diastolic blood pressure 2022-05-21 18:28:00 69 mm[Hg] [facility] Heart rate 2022-05-21 18:28:00 103 /min [facility] Body temperature 2022-05-21 18:28:00 36.72 Mery [facility] Respiratory rate 2022-05-21 18:28:00 16 /min [facility] Body weight 2022-05-21 18:28:00 41.051 kg [facility] Systolic blood pressure 2022-03-21 08:00:00 93 mm[Hg] [facility] Diastolic blood pressure 2022-03-21 08:00:00 61 mm[Hg] [facility] Heart rate 2022-03-21 08:00:00 57 /min [facility] Respiratory rate 2022-03-21 08:00:00 16 /min [facility] Oxygen saturation in Arterial blood by Pulse oximetry 2022-03-21 08:00:00 99 /min [facility] Body temperature 2022-03-21 04:47:00 36.67 Mery [facility] Body height 2022-03-21 04:47:00 160 cm [facility] Body weight 2022-03-21 04:47:00 40.597 kg [facility] BMI 2022-03-21 04:47:00 15.85 kg/m2 [facility] Body mass index (BMI) [Percentile] Per age and sex 2022-03-21 04:47:00 0.31 % [facility] Systolic blood pressure 2022-02-24 15:11:00 99 mm[Hg] [facility] Diastolic blood pressure 2022-02-24 15:11:00 67 mm[Hg] [facility] Heart rate 2022-02-24 15:11:00 92 /min [facility] Body temperature 2022-02-24 15:11:00 36.33 Mery [facility] Respiratory rate 2022-02-24 15:11:00 12 /min [facility] Body height 2022-02-24 15:11:00 158.3 cm [facility] Body weight 2022-02-24 15:11:00 42.366 kg [facility] BMI 2022-02-24 15:11:00 16.91 kg/m2 [facility] Body mass index (BMI) [Percentile] Per age and sex 2022-02-24 15:11:00 2.60 % [facility] Systolic blood pressure 2022-02-24 15:11:00 99 mm[Hg] [facility] Diastolic blood pressure 2022-02-24 15:11:00 67 mm[Hg] [facility] Heart rate 2022-02-24 15:11:00 92 /min [facility] Body temperature 2022-02-24 15:11:00 36.33 Mery [facility] Respiratory rate 2022-02-24 15:11:00 12 /min [facility] Body height 2022-02-24 15:11:00 158.3 cm [facility] Body weight 2022-02-24 15:11:00 42.366 kg [facility] BMI 2022-02-24 15:11:00 16.91 kg/m2 [facility] Body mass index (BMI) [Percentile] Per age and sex 2022-02-24 15:11:00 2.60 % [facility] Procedures Procedure Date / Time Performed Performing Clinician Source ASSIGNMENT OF BENEFITS 2023-07-22 20:16:42 Kayode r Unassigned, Bouse [facility] MEDICATION CORRESPONDENCE 2023-05-18 05:01:00 Do ctor Unassigned, Bouse [facility] POCT URINALYSIS 2023-02-27 00:00:00 Ivonne Nayak [facility] HB ECG ROUTINE & RHYTHM STRIP 2022-12-18 19:20:10 Ivy Tavares [facility] VACCINATION OF A MINOR 2022-12-18 18:41:26 Kayode r Unassigned, Bouse [facility] PATIENT FINANCIAL POLICY 2022-12-02 18:50:43 Doctor Unassigned, Bouse [facility] POCT MOLECULAR FLU 2022-09-10 20:39:00 Srini Sesay [facility] CONSENT/REFUSAL FOR DIAGNOSIS AND TREATMENT 2022-06-16 15:13:11 Doctor Unassigned, Bouse [facility] ASSIGNMENT OF BENEFITS 2022-06-16 15:12:55 Docjessica r Unassigned, Bouse [facility] POCT GRP A STREP (MOLECULAR) 2022-05-23 00:00:00 Ivy Tavares [facility] COMP. METABOLIC PANEL (78345) 2022-03-21 06:40:00 Ricardo Severino [facility] CBC WITH DIFF 2022-03-21 06:40:00 Ricardo Severino [facility] POCT TEST 2022-03-21 04:59:00 Ricardo Severino [facility] URINALYSIS 2022-03-21 04:56:00 Ricardo Severino [facility] NOTICE OF PRIVACY PRACTICES 2022-03-21 04:39:52 Doctor Unassigned, Bouse [facility] CONSENT/REFUSAL FOR DIAGNOSIS AND TREATMENT 2022-03-21 04:38:45 Doctor Unassigned, Bouse [facility] IMMUNOGLOBULIN E, SERUM 2022-02-24 16:40:00 Kole Lugo Hanna [facility] IMMUNOGLOBULIN G A M PANEL 2022-02-24 16:40:00 Asael Lugo Hanna [facility] Encounters Start Date/Time End Date/Time Encounter Type Admission Type Attending [facility] Facility Care Department Encounter ID Source 2021-07-01 17:55:48 Emergency [facility] [id number] [facility] 2021-06-28 16:10:45 Emergency [facility] [id number] [facility] 2021-06-28 11:07:15 Emergency [facility] [id number] [facility] 2021-06-27 18:46:17 Emergency [facility] [id number] [facility] 2024-08-11 00:00:00 2024-08-11 08:38:47 Letter (Out) L[facility] 1..114 350.1.13.10 4.2.7.2.686 [id number] 225 [id number] [facility] 2024-08-11 08:20:00 2024-08-11 08:38:20 Office Visit Lázaro Sushma [facility] 1.0.114 350.1.13.10 4.2.7.2.686 [id number] 225 [id number] [facility] 2024-08-11 08:20:00 2024-08-11 08:38:20 Outpatient R SUSHMA SESAY [facility] [id number] [facility] 2024-08-09 09:50:00 2024-08-09 09:50:00 Outpatient R IVONNE NAYAK [facility] [id number] [facility] 2024-06-06 13:00:00 2024-06-06 13:00:00 Outpatient R ASHLEY ANTHONY [facility] [id number] [facility] 2024-06-03 09:00:00 2024-06-03 09:00:00 Outpatient R GREG PATEL VIEN [facility] [id number] [facility] 2024-05-10 08:10:00 2024-05-10 08:51:35 Outpatient IVONNE TUTTLE [facility] [id number] [facility] 2024-05-10 08:10:00 2024-05-10 08:51:35 Office Visit Ivonne Nayak [facility] 1.2.0.114 350.1.13.10 4.2.7.2.686 [id number] 225 [id number] [facility] 2024-05-09 00:00:00 2024-05-09 16:30:03 Telephone Ivonne Nayak [facility] 1.2.840.114 350.1.13.10 4.2.7.2.686 [id number] [facility] 2024-05-09 00:00:00 2024-05-09 08:54:04 Telephone Ivonne Naayk [facility] 1.2.840.114 350.1.13.10 4.2.7.2.686 [id number] 225 [id number] [facility] 2024-03-25 16:00:00 2024-03-25 16:00:00 Outpatient R CARLYN ZAIDIIVY [facility] [id number] [facility] 2024-02-26 09:00:00 2024-02-26 09:35:27 Outpatient R GREG PATEL VIEN [facility] [id number] [facility] 2024-02-26 09:00:00 2024-02-26 09:35:27 Office Visit Greg Patel [facility] 1.2.840.114 350.1.13.10 4.2.7.2.686 [id number] [facility] 2024-02-15 11:00:00 2024-02-15 11:21:28 Outpatient R CASIE ONEIL LESLEY [facility] [id number] [facility] 2024-02-15 11:00:00 2024-02-15 11:21:28 Office Visit Casie Oneil [facility] 1.2.840.114 350.1.13.10 4.2.7.2.686 [id number] 225 [id number] [facility] 2024-02-15 00:00:00 2024-02-15 00:00:00 Patient Outreach Simona Manzo [facility] 1.2.840.114 350.1.13.10 4.2.7.2.686 [id number] 225 [id number] [facility] 2024-01-30 00:00:00 2024-02-01 09:39:57 Telephone Ivonne Nayak [facility] 1.2.840.114 350.1.13.10 4.2.7.2.686 [id number] 225 [id number] [facility] 2024-02-01 09:10:00 2024-02-01 09:10:00 Outpatient R IVONNE NAYAK [facility] [id number] [facility] 2024-01-27 09:10:00 2024-01-27 09:10:00 Outpatient R IVONNE NAYAK [facility] [id number] [facility] 2024-01-26 00:00:00 2024-01-26 14:22:43 Telephone Ivonne Nayak [facility] 1.2.840.114 350.1.13.10 4.2.7.2.686 [id number] 225 [id number] [facility] 2023-11-04 07:30:00 2023-11-04 07:30:00 Outpatient R IVONNE NAYAK [facility] [id number] [facility] 2023-10-21 15:10:00 2023-10-21 15:35:17 Outpatient R IVONNE NAYAK [facility] [id number] [facility] 2023-10-21 15:10:00 2023-10-21 15:35:17 Office Visit Ivonne Nayak [facility] 1.2.840.114 350.1.13.10 4.2.7.2.686 [id number] 225 [id number] [facility] 2023-08-05 08:10:00 2023-08-05 08:40:57 Outpatient R IVONNE NAYAK [facility] [id number] [facility] 2023-08-05 08:10:00 2023-08-05 08:40:57 Office Visit Ivonne Nayak [facility] 1.2.840.114 350.1.13.10 4.2.7.2.686 [id number] 225 [id number] [facility] 2023-07-22 14:10:00 2023-07-22 15:06:30 Outpatient R IVONNE NAYAK [facility] [id number] [facility] 2023-07-22 14:10:00 2023-07-22 15:06:30 Office Visit Ivonne Nayak [facility] 1.2840.114 350.1.13.10 4.2.7.2.686 [id number] 225 [id number] [facility] 2023-07-22 00:00:00 2023-07-22 00:00:00 Orders Only Doctor Unassigned, Bouse [facility] 1.840.114 350.1.13.10 4.2.7.2.686 [id number] [id number] [facility] 2023-06-08 09:00:00 2023-06-08 09:20:00 Office Visit Casie Oneil [facility] 1.20.114 350.1.13.10 4.2.7.2.686 [id number] 225 [id number] [facility] 2023-06-08 09:00:00 2023-06-08 09:00:00 Outpatient CASIE PEDRAZA LESLEY [facility] [id number] [facility] 2023-06-01 13:30:00 2023-06-01 14:13:57 Outpatient IVONNE TUTTLE [facility] [id number] [facility] 2023-06-01 13:30:00 2023-06-01 14:13:57 Office Visit Ivonne Nayak [facility] 1.840.114 350.1.13.10 4.2.7.2.686 [id number] 225 [id number] [facility] 2023-05-18 00:00:00 2023-05-18 00:00:00 Orders Only Doctor Unassigned, Bouse [facility] 1.20.114 350.1.13.10 4.2.7.2.686 [id number] [id number] [facility] 2023-04-16 15:00:00 2023-04-16 15:00:00 Outpatient CASIE PEDRAZA LESLEY [facility] [id number] [facility] 2023-03-30 12:50:00 2023-03-30 13:24:25 Outpatient IVONNE TUTTLE [facility] [id number] [facility] 2023-03-30 12:50:00 2023-03-30 13:24:25 Office Visit Ivonne Nayak [facility] 1.2.840.114 350.1.13.10 4.2.7.2.686 [id number] 225 [id number] [facility] 2023-02-27 12:50:00 2023-02-27 13:19:56 Outpatient IVONNE TUTTLE [facility] [id number] [facility] 2023-02-27 12:50:00 2023-02-27 13:19:56 Office Visit Ivonne Nayak [facility] 1.2.840.114 350.1.13.10 4.2.7.2.686 [id number] 225 [id number] [facility] 2023-01-28 14:50:00 2023-01-28 15:35:03 Outpatient IVONNE TUTTLE [facility] [id number] [facility] 2023-01-28 14:50:00 2023-01-28 15:35:03 Office Visit Ivonne Nayak [facility] 1.2.840.114 350.1.13.10 4.2.7.2.686 [id number] 225 [id number] [facility] 2023-01-27 08:10:00 2023-01-27 08:10:00 Outpatient IVONNE TUTTLE [facility] [id number] [facility] 2023-01-21 13:30:00 2023-01-21 14:23:13 Outpatient IVONNE TUTTLE [facility] [id number] [facility] 2023-01-21 13:30:00 2023-01-21 14:23:13 Office Visit Ivonne Nayak [facility] 1.2840.114 350.1.13.10 4.2.7.2.686 [id number] 225 [id number] [facility] 2023-01-21 09:10:00 2023-01-21 09:10:00 Outpatient IVONNE TUTTLE [facility] [id number] [facility] 2023-01-16 00:00:00 2023-01-16 00:00:00 Ivy Raines [facility] 1.2840.114 350.1.13.10 4.2.7.2.686 [id number] 225 [id number] [facility] 2023-01-02 08:50:00 2023-01-02 09:45:53 Outpatient IVONNE TUTTLE [facility] [id number] [facility] 2023-01-02 08:50:00 2023-01-02 09:45:53 Office Visit Ivonne Nayak [facility] 1.20.114 350.1.13.10 4.2.7.2.686 [id number] 225 [id number] [facility] 2023-01-02 00:00:00 2023-01-02 00:00:00 Letter (Out) Ivonne Nayak [facility] 1.2840.114 350.1.13.10 4.2.7.2.686 [id number] 225 [id number] [facility] 2022-12-22 06:47:00 2022-12-22 23:59:00 Hospital Encounter Kadi Romero 1.2840.114 350.1.13.10 4.2.7.2.686 [id number] [facility] 2022-12-22 00:00:00 2022-12-22 23:59:00 Outpatient R KADI ROMERO [facility] [id number] [facility] 2022-12-19 00:00:00 2022-12-19 00:00:00 Patient Outreach Janny Prater [facility] 1.2.840.114 350.1.13.10 4.2.7.2.686 [id number] [facility] 2022-12-18 13:40:00 2022-12-18 14:51:11 Outpatient R PAPATOR ZAIDI [facility] [id number] [facility] 2022-12-18 13:40:00 2022-12-18 14:51:11 Office Visit Carlyn zaidi [facility] 1.2840.114 350.1.13.10 4.2.7.2.686 [id number] 225 [id number] [facility] 2022-12-18 00:00:00 2022-12-18 00:00:00 Orders Only Doctor Unassigned, Bouse [facility] 1.2840.114 350.1.13.10 4.2.7.2.686 [id number] [facility] 2022-12-02 14:00:00 2022-12-02 14:08:05 Office Visit Lázaro Sushma [facility] 1.2840.114 350.1.13.10 4.2.7.2.686 [id number] 225 [id number] [facility] 2022-12-02 14:00:00 2022-12-02 14:08:05 Outpatient R LÁZARO [facility] [id number] [facility] 2022-12-02 00:00:00 2022-12-02 00:00:00 Orders Only Doctor Unassigned, Bouse [facility] 1.2840.114 350.1.13.10 4.2.7.2.686 [id number] 009 [id number] [facility] 2022-09-10 14:40:00 2022-09-10 15:00:00 Office Visit Sushma Sesay [facility] 1.2.840.114 350.1.13.10 4.2.7.2.686 [id number] [facility] 2022-09-10 14:40:00 2022-09-10 14:40:00 Outpatient R LÁZARO [facility] [id number] [facility] 2022-09-10 00:00:00 2022-09-10 00:00:00 Letter (Out) [facility] 1.2.840.114 350.1.13.10 [phone] 225 [id number] [facility] 2022-06-16 10:20:00 2022-06-16 11:25:46 [facility] [id number] [facility] 2022-06-16 10:20:00 2022-06-16 11:25:46 [facility] 1.2.840.114 350.1.13.10 4.2.7.2.686 [id number] 225 [id number] [facility] 2022-06-16 00:00:00 2022-06-16 00:00:00 Orders Only Doctor Unassigned, B[facility] 1.2.840.114 350.1.13.10 4.2.7.2.686 [id number] [facility] 2022-06-16 00:00:00 2022-06-16 00:00:00 Telephone Carlyn zaidi [facility] 1.2.840.114 350.1.13.10 4.2.7.2.686 [id number] 225 [id number] [facility] 2022-06-16 00:00:00 2022-06-16 00:00:00 Letter (Out) [facility] 1.2.840.114 350.1.13.10 4.2.7.2.686 [id number] 225 [id number] [facility] 2022-06-16 00:00:00 2022-06-16 00:00:00 Telephone Alejo Lloyd [facility] 1.2.840.114 350.1.13.10 4.2.7.2.686 [id number] [facility] 2022-06-03 00:00:00 2022-06-03 00:00:00 Telephone Alejo Lloyd Romie [facility] 1.2.840.114 350.1.13.10 4.2.7.2.686 [id number] [facility] 2022-05-30 00:00:00 2022-05-30 00:00:00 Telephone Alejo Lloyd Romie [facility] 1.2.840.114 350.1.13.10 4.2.7.2.686 [id number] [facility] 2022-05-29 00:00:00 2022-05-29 00:00:00 Telephone Alejo Lloyd [facility] 1.2.840.114 350.1.13.10 4.2.7.2.686 [id number] [facility] 2022-05-23 11:00:00 2022-05-23 11:43:52 [facility] [id number] [facility] 2022-05-23 11:00:00 2022-05-23 11:43:52 [facility] 1.2.840.114 350.1.13.10 4.2.7.2.686 [id number] 225 [id number] [facility] 2022-05-23 00:00:00 2022-05-23 00:00:00 Letter (Out) Ivy Ochoa [facility] 1.2840.114 350.1.13.10 4.2.7.2.686 [id number] 225 [id number] [facility] 2022-05-23 00:00:00 2022-05-23 00:00:00 Letter (Out) Carlyn zaidi [facility] 1.0.114 350.1.13.10 4.2.7.2.686 [id number] 225 [id number] [facility] 2022-05-21 13:20:00 2022-05-21 13:46:44 Outpatient R LÁZARO [facility] [id number] [facility] 2022-05-21 13:20:00 2022-05-21 13:46:44 Office Visit Lázaro, [facility] 1.0.114 350.1.13.10 4.2.7.2.686 [id number] 225 [id number] [facility] 2022-05-21 00:00:00 2022-05-21 00:00:00 Letter (Out) Lázaro, [facility] 1.2840.114 350.1.13.10 4.2.7.2.686 [id number] 225 [id number] [facility] 2022-05-21 00:00:00 2022-05-21 00:00:00 Telephone Alejo Lloyd [facility] 1.2840.114 350.1.13.10 4.2.7.2.686 [id number] [facility] 2022-03-20 23:51:00 2022-03-21 03:03:00 Emergency X RICARDO SEVERINO [facility] ERT [id number] [facility] 2022-03-20 23:51:00 2022-03-21 03:03:00 Emergency Ricardo Severino [facility] 1.2.840.114 350.1.13.10 4.2.7.2.686 [id number] [facility] 2022-03-20 00:00:00 2022-03-20 00:00:00 Orders Only Doctor Unassigned, Bouse [facility] 1.2.840.114 350.1.13.10 4.2.7.2.686 [id number] [facility] 2022-02-28 00:00:00 2022-02-28 00:00:00 Telephone Alejo Lloyd Romie [facility] 1.2.840.114 350.1.13.10 4.2.7.2.686 [id number] [facility] 2022-02-26 00:00:00 2022-02-26 00:00:00 Telephone Hanna Jc [facility] 1.2.840.114 350.1.13.10 4.2.7.2.686 [id number] [facility] 2022-02-24 10:30:00 2022-02-24 11:00:00 Office Visit Alejo Lloyd Romie [facility] 1.2.840.114 350.1.13.10 4.2.7.2.686 [id number] [facility] 2022-02-24 10:30:00 2022-02-24 11:00:00 Office Visit Alejo Lloyd Romie [facility] 1.2.840.114 350.1.13.10 4.2.7.2.686 [id number] [facility] 2022-02-24 10:30:00 2022-02-24 10:30:00 Outpatient R ALEJO LLOYD [facility] [id number] [facility] 2022-02-24 10:30:00 2022-02-24 10:30:00 Outpatient ALEJO AMOS [facility] [id number] [facility] 2022-02-24 10:30:00 2022-02-24 10:30:00 Outpatient ALEJO AMOS [facility] [id number] [facility] 2022-01-30 09:00:00 2022-01-30 09:00:00 Outpatient SUSHMA CAROLINA [facility] [id number] [facility] 2022-01-14 00:00:00 2022-01-14 00:00:00 Telephone Alejo Lloyd [facility] 1.2.840.114 350.1.13.10 4.2.7.2.686 [id number] [facility] 2022-01-01 00:00:00 2022-01-01 00:00:00 Telephone Lázaro Sushma [facility] 1.2.840.114 350.1.13.10 4.2.7.2.686 [id number] 225 [id number] [facility] 2021-12-30 08:20:00 2021-12-30 08:40:00 Office Visit Sushma Sesay [facility] 1.2.840.114 350.1.13.10 4.2.7.2.686 [id number] 225 [id number] [facility] 2021-12-30 08:20:00 2021-12-30 08:20:00 Outpatient Maria M SESAY SUSHMA [facility] [id number] [facility] 2021-12-30 00:00:00 2021-12-30 00:00:00 Letter (Out) Ivonne Nayak [facility] 1.2.840.114 350.1.13.10 4.2.7.2.686 [id number] [facility] 2021-12-09 09:00:00 2021-12-09 09:32:26 Outpatient R LÁZAROSUSMHA FABIAN [facility] [id number] [facility] 2021-12-09 09:00:00 2021-12-09 09:32:26 Office Visit Lázaro, Sushma [facility] 1.2840.114 350.1.13.10 4.2.7.2.686 [id number] 225 [id number] [facility] 2021-12-09 09:00:00 2021-12-09 09:32:26 Outpatient Maria M SESAY [facility] [id number] [facility] 2021-12-09 00:00:00 2021-12-09 00:00:00 Letter (Out) Lázaro [facility] 1.2840.114 350.1.13.10 4.2.7.2.686 [id number] 225 [id number] [facility] 2021-11-29 15:30:00 2021-11-29 15:49:23 Outpatient IVONNE TUTTLE [facility] [id number] [facility] 2021-11-29 15:30:00 2021-11-29 15:49:23 Office Visit Ivonne Nayak [facility] 1.2840.114 350.1.13.10 4.2.7.2.686 [id number] 225 [id number] [facility] 2021-11-29 00:00:00 2021-11-29 00:00:00 Letter (Out) Ivonne Nayak [facility] 1.2840.114 350.1.13.10 4.2.7.2.686 [id number] 225 [id number] [facility] 2021-11-27 00:00:00 2021-11-27 00:00:00 Telephone Ivonne Nayak [facility] 1.840.114 350.1.13.10 4.2.7.2.686 [id number] 225 [id number] [facility] 2021-11-18 09:00:00 2021-11-18 11:00:05 Office Visit Christiano Hartman [facility] 1.840.114 350.1.13.10 4.2.7.2.686 [id number] [facility] 2021-11-18 09:00:00 2021-11-18 11:00:05 Outpatient R CHRISTIANO HARTMAN [facility] [id number] [facility] 2021-11-18 09:00:00 2021-11-18 09:00:00 Outpatient R CHRISTIANO [facility] [id number] [facility] 2021-11-18 09:00:00 2021-11-18 09:00:00 Outpatient R CHRISTIANO [facility] [id number] [facility] 2021-11-18 09:00:00 2021-11-18 09:00:00 Outpatient R CHRISTIANO [facility] [id number] [facility] 2021-11-18 09:00:00 2021-11-18 09:00:00 Outpatient R CHRISTIANO [facility] [id number] [facility] 2021-11-18 09:00:00 2021-11-18 09:00:00 Outpatient R DEVAN [facility] [id number] [facility] 2021-11-18 09:00:00 2021-11-18 09:00:00 Outpatient R CHRISTIANO [facility] [id number] [facility] 2021-11-18 00:00:00 2021-11-18 00:00:00 Letter (Out) Devan Christiano [facility] 1..840.114 350.1.13.10 4.2.7.2.686 [id number] [facility] 2021-11-18 00:00:00 2021-11-18 00:00:00 Letter (Out) Christiano Hartman [facility] 1.2.840.114 350.1.13.10 4.2.7.2.686 [id number] [facility] 2021-11-18 00:00:00 2021-11-18 00:00:00 Orders Only Doctor Unassigned, Bouse [facility] 1.2.840.114 350.1.13.10 4.2.7.2.686 [id number] [id number] [facility] 2021-10-30 08:50:00 2021-10-30 09:19:34 Outpatient IVONNE TUTTLE [facility] [id number] [facility] 2021-10-30 08:50:00 2021-10-30 09:19:34 Office Visit Ivonne Nayak [facility] 1.2840.114 350.1.13.10 4.2.7.2.686 [id number] 225 [id number] [facility] 2021-10-30 00:00:00 2021-10-30 00:00:00 Letter (Out) Ivonne Nayak [facility] 1.2840.114 350.1.13.10 4.2.7.2.686 [id number] 225 [id number] [facility] 2021-10-09 09:10:00 2021-10-09 10:00:26 Outpatient IVONNE TUTTLE [facility] [id number] [facility] 2021-10-09 09:10:00 2021-10-09 10:00:26 Office Visit Ivonne Nayak [facility] 1.2840.114 350.1.13.10 4.2.7.2.686 [id number] 225 [id number] [facility] 2021-10-09 09:10:00 2021-10-09 10:00:26 Outpatient IVONNE TUTTLE [facility] [id number] [facility] 2021-09-13 10:40:00 2021-09-13 11:02:02 Outpatient YENI [facility] [id number] [facility] 2021-09-13 10:40:00 2021-09-13 11:02:02 Office Visit Yeni Reina [facility] 1.840.114 350.1.13.10 4.2.7.2.686 [id number] 225 [id number] [facility] 2021-09-13 10:40:00 2021-09-13 11:02:02 Outpatient YENI [facility] [id number] [facility] 2021-09-13 10:40:00 2021-09-13 11:02:02 Outpatient YENI [facility] [id number] [facility] 2021-09-13 00:00:00 2021-09-13 00:00:00 Orders Only Doctor Unassigned, Bouse [facility] 1.840.114 350.1.13.10 4.2.7.2.686 [id number] [facility] 2021-09-11 13:00:00 2021-09-11 13:23:13 Office Visit Zain Rosas [facility] 1.84.114 350.1.13.10 4.2.7.2.686 [id number] 225 [id number] [facility] 2021-09-11 13:00:00 2021-09-11 13:23:13 Outpatient R ZAIN ROSAS [facility] [id number] [facility] 2021-09-11 13:00:00 2021-09-11 13:23:13 Outpatient ZAIN SEPULVEDA [facility] [id number] [facility] 2021-09-11 13:00:00 2021-09-11 13:00:00 Outpatient ZAIN [facility]ULVEDA [facility] [id number] [facility] 2021-09-11 00:00:00 2021-09-11 00:00:00 Letter (Out) Sonia, Zain [facility] 1..840.114 350.1.13.10 4.2.7.2.686 [id number] 225 [id number] [facility] 2021-08-12 08:49:00 2021-08-12 10:08:00 Emergency X JENNIFER ROCHE [facility] [id number] [facility] 2021-08-12 08:49:00 2021-08-12 10:08:00 Emergency Jennifer Roche [facility] 1..840.114 350.1.13.10 4.2.7.2.686 [id number] [facility] 2021-08-12 08:49:00 2021-08-12 10:08:00 Emergency X JENNIFER ROCHE [facility] [id number] [facility] 2021-08-12 08:49:00 2021-08-12 10:08:00 Emergency X JENNIFER ROCHE [facility] ERT [id number] [facility] 2021-08-12 08:49:00 2021-08-12 10:08:00 Emergency X JENNIFER ROCHE [facility] [id number] [facility] 2021-07-05 09:15:00 2021-07-05 12:26:00 Emergency X Jessica ORTEGA [facility] ERT [id number] [facility] 2021-07-05 09:15:00 2021-07-05 12:26:00 Emergency Jessica Ortega [facility] 1..840.114 350.1.13.10 4.2.7.2.686 [id number] [facility] 2021-07-01 08:30:00 2021-07-01 08:53:10 Outpatient R IVONNE NAYAK [facility] [id number] [facility] 2021-07-01 08:21:58 2021-07-01 08:53:10 Office Visit Ivonne Nayak [facility] 1.2.840.114 350.1.13.10 4.2.7.2.686 [id number] 225 [id number] [facility] 2021-07-01 00:00:00 2021-07-01 00:00:00 Letter (Out) Ivonne Nayak [facility] 1.2840.114 350.1.13.10 4.2.7.2.686 [id number] 225 [id number] [facility] 2021-06-12 08:12:56 2021-06-12 09:00:36 Office Visit Ivonne Nayak [facility] 1.2.840.114 350.1.13.10 4.2.7.2.686 [id number] 225 [id number] [facility] 2021-06-12 08:30:00 2021-06-12 08:30:00 Outpatient R IVONNE NAYAK [facility] [id number] [facility] 2021-06-12 00:00:00 2021-06-12 00:00:00 Orders Only Doctor Unassigned, Bouse [facility] 1.2.840.114 350.1.13.10 4.2.7.2.686 [id number] [id number] [facility] 2021-06-12 00:00:00 2021-06-12 00:00:00 Letter (Out) Ivonne Nayak [facility] 1.2.840.114 350.1.13.10 4.2.7.2.686 [id number] 225 [id number] [facility] 2021-05-20 10:37:41 2021-05-20 11:18:33 Office Visit Ivonne Nayak [facility] 1.2840.114 350.1.13.10 4.2.7.2.686 [id number] 225 [id number] [facility] 2021-05-20 10:50:00 2021-05-20 10:50:00 Outpatient R IVONNE NAYAK [facility] [id number] [facility] 2021-05-20 00:00:00 2021-05-20 00:00:00 Letter (Out) Ivonne Nayak [facility] 1.2840.114 350.1.13.10 4.2.7.2.686 [id number] 225 [id number] [facility] 2021-05-20 00:00:00 2021-05-20 00:00:00 Letter (Out) Ivonne Nayak [facility] 1.0.114 350.1.13.10 4.2.7.2.686 [id number] 225 [id number] [facility] 2021-05-17 10:50:00 2021-05-17 10:50:00 Outpatient R IVONNE NAYAK [facility] [id number] [facility] 2021-04-30 15:18:22 2021-04-30 16:18:22 Nurse Visit Therapy, Adc Covid Infusion Harman Escalona [facility] 1.0.114 350.1.13.10 4.2.7.2.686 [id number] [facility] 2021-04-30 15:18:22 2021-04-30 16:18:22 Nurse Visit Therapy, Adc Covid Infusion Singer [facility] 1.2840.114 350.1.13.10 4.2.7.2.686 [id number] [facility] 2021-04-30 15:30:00 2021-04-30 15:30:00 Outpatient R HARMAN ESCALONA [facility] [id number] [facility] 2021-04-25 13:20:00 2021-04-25 13:20:00 Outpatient R SUSHMA YU [facility] [id number] [facility] 2021-04-24 09:03:00 2021-04-24 12:06:00 Emergency Singer Harman [facility] 1.2.840.114 350.1.13.10 4.2.7.2.686 [id number] 084 [id number] [facility] 2021-04-24 09:03:00 2021-04-24 12:06:00 Emergency Singer Harman [facility] 1.2.840.114 350.1.13.10 4.2.7.2.686 [id number] [id number] [facility] 2021-04-08 11:12:30 2021-04-08 12:13:30 Office Visit Yeni Reina [facility] 1.2.840.114 350.1.13.10 4.2.7.2.686 [id number] 225 [id number] [facility] 2021-04-08 11:20:00 2021-04-08 11:20:00 Outpatient R YENI REINA [facility] [id number] [facility] 2021-03-25 08:33:34 2021-03-25 09:37:23 Office Visit Yeni Reina [facility] 1.2.840.114 350.1.13.10 4.2.7.2.686 [id number] [facility] 2021-03-25 08:40:00 2021-03-25 08:40:00 Outpatient R YENI REINA [facility] [id number] [facility] 2021-03-25 08:40:00 2021-03-25 08:40:00 Outpatient R YENI REINA [facility] [id number] [facility] 2021-03-15 08:56:12 2021-03-15 10:15:11 Office Visit Yeni Reina [facility] 1.2.840.114 350.1.13.10 4.2.7.2.686 [id number] 225 [id number] [facility] 2021-03-15 09:00:00 2021-03-15 09:00:00 Outpatient R PASHA YENI [facility] [id number] [facility] 2021-03-15 00:00:00 2021-03-15 00:00:00 Letter (Out) Yeni Reina [facility] 1.2.840.114 350.1.13.10 4.2.7.2.686 [id number] [facility] 2021-02-05 00:00:00 2021-02-05 00:00:00 Telephone Alejo Lloyd [facility] 1.2.840.114 350.1.13.10 4.2.7.2.686 [id number] [facility] 2021-02-01 00:00:00 2021-02-01 00:00:00 Telephone Ivonne Nayak [facility] 1.2.840.114 350.1.13.10 4.2.7.2.686 [id number] 225 [id number] [facility] 2020-12-10 12:37:56 2020-12-10 13:10:49 Office Visit Ivonne Nayak [facility] 1.2.840.114 350.1.13.10 4.2.7.2.686 [id number] [facility] 2020-12-10 12:50:00 2020-12-10 12:50:00 Outpatient IVONNE TUTTLE [facility] [id number] [facility] 2020-11-21 00:00:00 2020-11-21 00:00:00 Telephone Alejo Lloyd [facility] 1..840.114 350.1.13.10 4.2.7.2.686 [id number] 147 [id number] [facility] 2020-11-09 00:00:00 2020-11-09 00:00:00 Telephone Alejo Lloyd [facility] 1..840.114 350.1.13.10 4.2.7.2.686 [id number] [facility] 2020-11-08 10:00:00 2020-11-08 10:00:00 Outpatient CHRISTIANO [facility] [id number] [facility] 2020-11-08 00:00:00 2020-11-08 00:00:00 Letter (Out) Doctor Unassigned, Bouse [facility] ..840.114 350.1.13.10 4.2.7.2.686 [id number] [facility] 2020-10-22 14:40:00 2020-10-22 14:40:00 Outpatient YORDAN MCKEON [facility] [id number] [facility] 2020-10-22 09:22:20 2020-10-22 09:38:15 Nurse Visit Nurse, Yordan Duarte Charles [facility] 1..840.114 350.1.13.10 4.2.7.2.686 [id number] [facility] 2020-10-22 00:00:00 2020-10-22 00:00:00 Letter (Out) Yordan Self Charles [facility] 1.2.840.114 350.1.13.10 4.2.7.2.686 [id number] [facility] 2020-10-19 00:00:00 2020-10-19 00:00:00 Telephone Alejo Lloyd [facility] 1.2.840.114 350.1.13.10 4.2.7.2.686 [id number] [facility] 2020-10-10 00:00:00 2020-10-10 00:00:00 Telephone Alejo Lloyd [facility] 1.2.840.114 350.1.13.10 4.2.7.2.686 [id number] [facility] 2020-10-04 10:00:00 2020-10-04 10:00:00 Outpatient [facility] [id number] [facility] 2020-10-02 10:30:00 2020-10-02 10:30:00 Outpatient SEBASTIEN LANDEROS [facility] [id number] [facility] 2020-10-02 00:00:00 2020-10-02 00:00:00 Orders Only Doctor Unassigned, Bouse [facility] 1.2.840.114 350.1.13.10 4.2.7.2.686 [id number] [facility] 2020-09-28 00:00:00 2020-09-28 00:00:00 Telephone ElizabethClaudia [facility] 1.2.840.114 350.1.13.10 4.2.7.2.686 [id number] [facility] 2020-09-26 00:00:00 2020-09-26 00:00:00 Telephone Alejo Lloyd [facility] 1.2.840.114 350.1.13.10 4.2.7.2.686 [id number] [facility] 2020-09-26 00:00:00 2020-09-26 00:00:00 Telephone Ivonne Nayak [facility] 1.2.840.114 350.1.13.10 4.2.7.2.686 [id number] [facility] 2020-09-25 00:00:00 2020-09-25 00:00:00 Letter (Out) [facility]ne [facility] 1.2.840.114 350.1.13.10 4.2.7.2.686 [id number] 225 [id number] [facility] 2020-09-24 13:40:00 2020-09-24 13:40:00 Outpatient YORDAN MCKEON [facility] [id number] [facility] 2020-09-24 09:33:13 2020-09-24 09:53:13 Nurse Visit Nurse, [facility] Yordan Self [facility] 1.2.840.114 350.1.13.10 4.2.7.2.686 [id number] [facility] 2020-09-24 00:00:00 2020-09-24 00:00:00 Letter (Out) Yordan Self [facility] 1.2.840.114 350.1.13.10 4.2.7.2.686 [id number] 160 [id number] [facility] 2020-09-24 00:00:00 2020-09-24 00:00:00 Telephone [facility]vonne [facility] 1.2.840.114 350.1.13.10 4.2.7.2.686 [id number] 225 [id number] [facility] 2020-09-18 00:00:00 2020-09-18 00:00:00 Telephone Ivonne Nayak [facility] 1.2.840.114 350.1.13.10 4.2.7.2.686 [id number] 225 [id number] [facility] 2020-09-14 00:00:00 2020-09-14 00:00:00 Telephone Claudia Johnson [facility] 1.2.840.114 350.1.13.10 4.2.7.2.686 [id number] [facility] 2020-09-14 00:00:00 2020-09-14 00:00:00 Telephone Elizabeth Claudia Dowell [facility] 1.2.840.114 350.1.13.10 4.2.7.2.686 [id number] [facility] 2020-09-11 00:00:00 2020-09-11 00:00:00 Telephone Ivonne Nayak [facility] 1.2.840.114 350.1.13.10 4.2.7.2.686 [id number] 225 [id number] [facility] 2020-09-10 10:31:00 2020-09-10 11:01:00 Office Visit Alejo Lloydclemencia Grubbs [facility] 1.2.840.114 350.1.13.10 4.2.7.2.686 [id number] [facility] 2020-09-10 08:01:22 2020-09-10 08:55:15 Office Visit Ivonne Nayak [facility] 1.2.840.114 350.1.13.10 4.2.7.2.686 [id number] 225 [id number] [facility] 2020-09-10 08:10:00 2020-09-10 08:10:00 Outpatient R IVONNE NAYAK [facility] [id number] [facility] 2020-09-10 00:00:00 2020-09-10 00:00:00 Letter (Out) Ivonne Nayak [facility] 1.2.840.114 350.1.13.10 4.2.7.2.686 [id number] 225 [id number] [facility] 2020-09-10 00:00:00 2020-09-10 00:00:00 Letter (Out) Ivonne Nayak [facility] 1.2.840.114 350.1.13.10 4.2.7.2.686 [id number] 225 [id number] [facility] 2020-09-10 00:00:00 2020-09-10 00:00:00 Letter (Out) Alejo Lloyd Timclemencia [facility] [place] 1.2840.114 350.1.13.10 4.2.7.2.686 [id number] 147 [id number] [facility] 2020-09-07 10:00:00 2020-09-07 10:00:00 Outpatient R ALEJO LLOYD [facility] [id number] [facility] 2020-09-03 13:34:57 2020-09-03 14:19:15 Office Visit Yeni Reina [facility] 1.2.114 350.1.13.10 4.2.7.2.686 [id number] 225 [id number] [facility] 2020-09-03 13:40:00 2020-09-03 13:40:00 Outpatient R YENI REINA [facility] [id number] [facility] 2020-08-27 08:50:00 2020-08-27 08:50:00 Outpatient R IVONNE NAYAK [facility] [id number] [facility] 2020-08-21 09:25:47 2020-08-21 09:46:57 Nurse Visit Nurse, Jazz [facility]io [facility] 1.2.114 350.1.13.10 4.2.7.2.686 [id number] 225 [id number] 2020-08-21 09:25:47 2020-08-21 09:46:57 Nurse Visit Nurse, Ivonne Wesley [facility] 1.2.840.114 350.1.13.10 4.2.7.2.686 [id number] 225 [id number] [facility] 2020-08-21 09:30:00 2020-08-21 09:30:00 Outpatient IVONNE TUTTLE [facility] [id number] [facility] 2020-06-20 12:49:20 2020-06-20 13:58:11 Office Visit Ivonne [facility] 1.2840.114 350.1.13.10 4.2.7.2.686 [id number] [facility] 2020-06-20 12:49:20 2020-06-20 13:58:11 Office Visit Ivonne Nay[facility] 1.2840.114 350.1.13.10 4.2.7.2.686 [id number] 2020-06-20 13:10:00 2020-06-20 13:10:00 Outpatient IVONNE TUTTLE [facility] [id number] [facility] 2020-05-21 08:23:28 2020-05-21 08:32:31 Nurse Visit Nurse, Ivonne Wesley [facility] 1.20.114 350.1.13.10 4.2.7.2.686 [id number] [facility] 2020-05-21 08:20:00 2020-05-21 08:20:00 Outpatient IVONNE TUTTLE [facility] [id number] [facility] 2020-05-21 00:00:00 2020-05-21 00:00:00 Orders Only Doctor Unassigned, [facility] 1.2.840.114 350.1.13.10 4.2.7.2.686 [id number] [id number] [facility] 2020-05-14 13:30:00 2020-05-14 13:30:00 Outpatient IVONNE TUTTLE [facility] [id number] [facility] 2020-05-06 15:21:00 2020-05-06 19:19:00 [facility] [id number] [facility] 2020-05-06 15:21:00 2020-05-06 19:19:00 Emergency Chen Shields [facility] 1.2.840.114 350.1.13.10 4.2.7.2.686 [id number] [facility] 2020-05-06 00:00:00 2020-05-06 00:00:00 Orders Only Doctor Unassigned, [facility] 1.2.840.114 350.1.13.10 4.2.7.2.686 [id number] [id number] [facility] 2020-04-05 21:49:00 2020-04-06 00:26:00 Emergency Jeison Lui [facility] 1.2.840.114 350.1.13.10 4.2.7.2.686 [id number] [facility] 2020-02-20 09:02:57 2020-02-20 09:22:57 Nurse Visit Nurse, Ivonne Wesley [facility] 1.2.840.114 350.1.13.10 4.2.7.2.686 [id number] [facility] 2020-02-20 09:00:00 2020-02-20 09:00:00 Outpatient IVONNE TUTTLE [facility] [id number] [facility] 2020-02-15 07:35:19 2020-02-15 08:48:51 Office [facility] 1.2.840.114 350.1.13.10 4.2.7.2.686 [id number] [facility] 2020-02-15 07:50:00 2020-02-15 07:50:00 Outpatient R IVONNE NAYAK [facility] [id number] [facility] 2019-12-23 15:30:00 2019-12-23 15:30:00 Outpatient R IVONNE NAYAK [facility] [id number] [facility] 2019-12-23 12:47:38 2019-12-23 13:07:38 Telemedici ne Visit [facility] 1.2.840.114 350.1.13.10 4.2.7.2.686 [id number] [facility] 2019-12-22 01:51:19 2019-12-22 02:57:00 Emergency X NIGHAT CHRISTIANO [facility] ERT [id number] [facility] 2019-12-22 01:51:19 2019-12-22 02:57:00 Emergency Christiano Disla Maria M [facility] 1.2.840.114 350.1.13.10 4.2.7.2.686 [id number] [facility] 2019-12-22 00:00:00 2019-12-22 00:00:00 Telephone [facility] 1.2840.114 350.1.13.10 4.2.7.2.686 [id number] [facility] 2019-10-04 21:24:15 2019-10-04 23:11:00 Emergency X RICARDO SEVERINO [facility] ERT [id number] [facility] 2019-10-04 21:24:15 2019-10-04 23:11:00 Emergency Ricardo Severino [facility] 1.2.840.114 350.1.13.10 4.2.7.2.686 [id number] [facility] 2019-10-04 14:30:42 2019-10-04 15:36:54 Office Visit Zain [facility] 1.2.840.114 350.1.13.10 4.2.7.2.686 [id number] [facility] 2019-10-04 00:00:00 2019-10-04 00:00:00 Letter (Out) Ivonne [facility] 1.2.840.114 350.1.13.10 4.2.7.2.686 [id number] [facility] 2019-10-04 00:00:00 2019-10-04 00:00:00 Letter (Out) Ivonne N[facility] 1.2.840.114 350.1.13.10 4.2.7.2.686 [id number] [facility] 2019-10-04 00:00:00 2019-10-04 00:00:00 Orders Only Doctor Unassigned, [facility] 1.2.840.114 350.1.13.10 4.2.7.2.686 [id number] [id number] [facility] 2019-05-20 13:25:10 2019-05-20 14:25:03 Office Visit Ivonne [facility] 1.2.840.114 350.1.13.10 4.2.7.2.686 [id number] [facility] 2019-05-20 00:00:00 2019-05-20 00:00:00 Orders Only Doctor Unassigned, [facility] 1.2.840.114 350.1.13.10 4.2.7.2.686 [id number] [facility] 2019-05-20 00:00:00 2019-05-20 00:00:00 Letter (Out) Ivonne N[facility] 1.2.840.114 350.1.13.10 4.2.7.2.686 [id number] [facility] 2019-04-15 09:56:15 2019-04-15 10:37:17 Office Visit Ivonne [facility] 1.2.840.114 350.1.13.10 4.2.7.2.686 [id number] [facility] 2019-04-13 00:00:00 2019-04-13 00:00:00 Telephone Ivonne [facility] 1.2.840.114 350.1.13.10 4.2.7.2.686 [id number] [facility] Results Test Description Test Time Test Comments Results Result Co mments Source [facility] SPECIFIC [id number] 18:23:00* Test Item Value Reference Range Interpretation [...] cloudy Lab Interpretation (test cod e = 42056-1) Abnormal [facility] URINALYSIS W SPECIFIC [id number] 18:23:00* Test Item Value Reference Range Interpretation [...] cloudy Lab Interpretation (test cod e = 25208-5) Abnormal [facility] MOLECULAR [id number] 20:50:59* Test Item Value Reference Range Interpretation Comme nts POCT Molecular FluA (test co de = 78772-5) Negative Negative POCT Molecular FluB (test co de = 19968-9) Negative Negative Lab Interpretation (test cod e = 69569-9) Normal [facility] MOLECULAR [id number] 20:50:59* Test Item Value Reference Range Interpretation Comme nts POCT Molecular FluA (test co de = 05636-1) Negative Negative POCT Molecular FluB (test co de = 72640-6) Negative Negative Lab Interpretation (test cod e = 07216-1) Normal [facility] GRP A STREP (MOLECULAR)2022-05-23 16:43:00* Test Item Value Reference Range Interpretation Comme nts POCT GP A STREP (test code = 95398-2) negative Negative - Negative Lab Interpretation (test cod e = 99169-1) Normal [facility] GRP A STREP (MOLECULAR)2022-05-23 16:43:00* Test Item Value Reference Range Interpretation Comme nts POCT GP A STREP (test code = 92528-2) negative Negative - Negative Lab Interpretation (test cod e = 00604-7) Normal [facility]REP (MOLECULAR)2022-05-23 16:43:00* Test Item Value Reference Range Interpretation Comme nts POCT GP A STREP (test code = 84426-1) negative Negative - Negative Lab Interpretation (test cod e = 78890-1) Normal [facility]. METABOLIC PANEL (39505)2022-03-21 07:04:30* Test Item Value Reference Range Interpretation Comme nts NA (test code = 7795052392) 140 mmol/L 135-145 K (test code = 2874140525) 3.9 mmol/L 3.5-5 CL (test code = 1265071503) 102 mmol/L 98-108 CO2 TOTAL (test code = 8596498380) 26 mmol/L 23-31 AGAP (test code = 5112900107) 2-16 BUN (test code = 6857754382) 10 mg/dL 7-23 GLUCOSE (test code = 8852717297) 100 mg/dL 70-110 CREATININE (test code = 5486660289) 0.56 mg/dL 0.5-1.04 TOTAL BILI (test code = 1457007081) 0.4 mg/dL 0.1-1.1 CALCIUM (test code = 7529868894) 10.1 mg/dL 8.6-10.6 T PROTEIN (test code = 4513918578) 7.5 g/dL 6.3-8.2 ALBUMIN (test code = 2479159581) 5.8 g/dL 3.5-5 H ALK PHOS (test code = 8575892412) 66 U/L 34-122 ALTv (test code = 1742-6) 12 U/L 5-35 AST(SGOT) (test code = 0656816766) 21 U/L 13-40 MITESH (test code = [...] imaging tests). Lab Interpretation (test code = 11100-6) Abnormal [facility] WITH [id number] 06:52:47* Test Item Value Reference Range Interpretation Comme nts WBC (test code = 6690-2) See_Comment [[employer]] The system which generated this result transmitted reference range: 4.50 - 13.50 10*3/?L. The reference range was not used to interpret this result as normal/abnormal. RBC (test code = 789-8) See_Comment [[employer]] The system which generated this result transmitted [...] 33.6 g/dL 32-36 RDW-SD (test code = 48083-6) 41.7 fL 38.5-49 RDW-CV (test code = 788-0) 12.8 % 11.5-14 PLT (test code = 777-3) See_Comment [Automated messa ge] The system which generated this result transmitted reference range: 135 - 361 10*3/?L. The reference range was not used to interpret this result as normal/abnormal. MPV (test code = 26122-3) 10.3 fL 9.4-13.3 NRBC/100 WBC (test code = 3299841388) See_Comment [Automated me ssage] The system which generated this result transmitted reference range: 0.0 - 10.0 /100 WBCs. The reference range was not used to interpret this result as normal/abnormal. NRBC x10^3 (test code = 3303432263) See_Comment [Automated me ssage] The system which generated this result transmitted reference range: 10*3/?L. The reference range was not used to interpret this result as normal/abnormal. GRAN MAT (NEUT) % (test code = 770-8) 46.3 % IMM GRAN % (test code = 0767402171) 0.20 % LYMPH % (test code = 736-9) 47.6 % MONO % (test code = 5905-5) 5.4 % EOS % (test code = 713-8) 0.2 % BASO % (test code = 706-2) 0.3 % GRAN MAT x10^3(ANC) (test code = 9232073680) 3.02 10*3/uL 1.5-10.3 IMM GRAN x10^3 (test code = 0410084629) 0-0.06 LYMPH x10^3 (test code = 731-0) 3.10 10*3/uL 0.7-7.4 MONO x10^3 (test code = 742-7) 0.35 10*3/uL 0-0.5 EOS x10^3 (test code = 711-2) 0-0.4 BASO x10^3 (test code = 704-7) 0-0.1 [id number] 04:59:00* Test Item Value Reference Range Interpretation Comme nts POCT PREG (test code = 1605) Negative On board controls acceptable with C Line (test code = 3574) Positive POCT PREG LOT # (test code = 3575) [id number] POCT PREG TEST DATE ( test code = 3576) 06/30/2023 Lab Interpretation (test cod e = 83370-0) Normal [facility], [id number] 03:49:03* Test Item Value Reference Range Interpretation Comme nts IGE (test code = 68662-3) <2 See_Comment REFERENCE INTERV AL: Immunoglobulin E, Serum Access complete set of age- and/or gender-specific reference intervals for this test in the [employer] [facility] Test Directory ([employer]).Performed By: [employer] [place] [address] [id number] Director: Jessica Mitchell MD [Automated message] The system which generated this result transmitted reference range: <=537. The reference range was not used to interpret this result as normal/abnormal. [facility]IMMUNOGLOBUL[facility] G A M [id number] 15:45:31 * Test Item Value Reference Range Interpretation Comme nts IgA (test code = 8140025026) 16 mg/dL 70-312 L IgG (test code = 7298440430) 425 mg/dL 636-1600 L IgM (test code = 3125529634) 22 mg/dL 56-352 L Lab Interpretation (test cod e = 82154-5) Abnormal [facility]"
[2024-08-21] MEDS ORDERED: FAMOTIDINE 20 MG/2 ML VIAL IV ONE (07:40)
[2024-08-21] MEDS ORDERED: NA CHLORIDE 0.9% 1,000 ML ONE (07:40)
[2024-08-21 07:47] LABS: Absolute Lymphocytes (CBC) 0.5 K/uL (0.7-4.9); Absolute Monocytes 0.3 K/uL (0.1-1.3); Absolute Neutrophil 2.9 K/uL (1.8-8.0); Basophils % 0.3 % (0-1.3); Hematocrit 38.6 % (36.0-45.0); Lymphocytes % 13.7 % (15.3-44.8); MCH 30.5 pg (27.0-35.0); MCHC 33.6 g/dL (32.0-36.0); MCV 90.6 fL (80-100); MPV 8.6 fL (7.6-11.3); Monocytes % 7.4 % (3.3-12.3); Neutrophils % 78.6 % (41.7-73.7); Platelets 166 thou/uL (152-406); RBC Red Blood Cell Count 4.25 M/uL (3.86-4.86); Red Cell Distribution Width 12.4 % (12.1-15.2)
[2024-08-21] MEDS ORDERED: CEFTRIAXONE 1000 MG/VIAL ONE (07:49)
[2024-08-21] MEDS ORDERED: NA CHLORIDE 0.9% 500 ML ONE (07:50)
[2024-08-21] MEDS ORDERED: NA CHLORIDE 0.9% 50 ML ONE (07:50)
[2024-08-21] MEDS ORDERED: ACETAMINOPHEN 325 MG TABLET ONE (07:50)
[2024-08-21 08:04] LABS: Albumin 3.8 g/dL (3.4-5.0); Albumin/Globulin Ratio 1.5 (1.1-1.8); Anion Gap 10.8 mEq/L (5.0-15.0); Bilirubin Total 0.4 mg/dL (0.2-1.0); Globulin 2.5 g/dL (2.3-3.5); Potassium 3.8 mEq/L (3.5-5.1); Protein, Total 6.3 g/dL (6.4-8.2)
--- NOTE | 2024-08-21 08:19 | RAD REPORT ---
EXAMINATION: TWO VIEW CHEST XR CLINICAL INDICATION: COUGH TECHNIQUE: 2 views of the chest was performed. COMPARISON: 09/28/2023 FINDINGS: The lungs are well inflated and clear. The heart is normal in size. No displaced fractures evident. IMPRESSION: No acute or significant abnormalities.
[2024-08-21 08:48] LABS: SARS-CoV-2 Antigen CONTROL BLUE LINE VIS/BG OK; SARS-CoV-2 Antigen Rapid Res Negative (Negative)
--- NOTE | 2024-08-21 09:45 | RAD REPORT ---
EXAMINATION: CT ABDOMEN AND PELVIS WITH CONTRAST CLINICAL INDICATION: ABD PAIN TECHNIQUE: CT abdomen and pelvis was performed, after the administration of IV contrast, as per [facility] protocol. Axial, sagittal and coronal reconstructions were obtained. One or more of the following dose reduction techniques were used: Automated exposure control, adjustment of the mA and k V according to patient size, and iterative reconstruction. Unless otherwise specified, incidental findings do not require dedicated imaging follow-up. COMPARISON: 06/06/2023 FINDINGS: LOWER CHEST: The visualized lung bases are clear. LIVER: Normal in size and contour. No focal lesion. Grossly unremarkable gallbladder. SPLEEN: Normal size. No focal lesion. PANCREAS: No mass, ductal dilation, or jamison-pancreatic fluid. ADRENALS: Normal; no mass. KIDNEYS: Normal size and contour. No hydronephrosis. GASTROINTESTINAL TRACT: No evidence of free air, significant intra-abdominal free fluid, bowel obstru ction or abscess. APPENDIX: Appendix not visualized, but no inflammatory changes in region of appendix. LYMPH NODES: No lymphadenopathy. MUSCULOSKELETAL: No acute or suspicious osseous abnormality. ADDITIONAL FINDINGS: Trace pelvic free fluid. IMPRESSION: No acute or concerning abnormalities seen in the abdomen or pelvis.
--- NOTE | 2024-08-21 09:48 | ER ---
Nurse's Notes [facility] Name: Ana Paula Nielson Age: 18 yrs Sex: Female : 2005 Arrival Date: 08/21/2024 Time: 07:11 Bed 13 Private MD: Diagnosis: Vomiting;Fever, unspecified;Abdominal pain, unspecified;Other malaise and fatigue Presentation: 08/21 07:19 Chief complaint: EMS states: they were called to the patients home for complaints of ap3 fever, nausea, foul smelling urine, and general malaise. It is reported patient started an unknown antibiotic yesterday or a UTI diagnosis. Coronavirus screen: At this time, the client does not indicate any symptoms associated with coronavirus-19. Ebola Screen: No symptoms or risks identified at this time. Initial Sepsis Screen: Does the patient meet any 2 criteria? HR > 90 bpm. Does the patient have a suspected source of infection? No. Patient's initial sepsis screen is negative. Risk Assessment: Do you want to hurt yourself or someone else? Patient reports no desire to harm self or others. Onset of symptoms is unknown. Care prior to arrival: Medication(s) given: Normal saline infusion, 300 ml zofran 4 mg, IV initiated. 20 GA, in the left antecubital area. 07:19 Method Of Arrival: EMS: [facility] ap3 07:19 Acuity: GERARD 3 ap3 Triage Assessment: 07:23 General: Appears in no apparent distress. Behavior is calm, cooperative, appropriate ap3 for age, Reports fever for fatigue for. Pain:. Neuro: Level of Consciousness is awake, alert, obeys commands, Oriented to person, place, time, situation, Appropriate for age. Cardiovascular: Patient's skin is warm and dry. Respiratory: Airway is patent Respiratory effort is even, unlabored, Respiratory pattern is regular, symmetrical. : Reports pain with urination, urinary frequency. 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 - Infectious Disease History:: Denies. - Social history:: Smoking status: Reported history of juuling and/or vaping. Screenin:24 [facility] ED Fall Risk Assessment (Adult) History of falling in the last 3 months, ap3 including since admission No falls in past 3 months (0 pts) Confusion or Disorientation No (0 pts) Intoxicated or Sedated No (0 pts) Impaired Gait No (0 pts) Mobility Assist Device Used No (0 pt) Altered Elimination No (0 pt) Score/Fall Risk Level 0 - 2 = Low Risk Oriented to surroundings, Maintained a safe environment, Educated pt \T\ family on fall prevention, incl call for assistance when getting out of bed, Assessed \T\ reinforced patient's understanding of fall precautions, Hourly rounding (assess needs \T\ fall precautionary measures) done, Used ambulatory aids as needed (educated on \T\ assisted with), Used gait belt as appropriate. Abuse screen: Denies threats or abuse. Nutritional screening: No deficits noted. Tuberculosis screening: No symptoms or risk factors identified. Assessment: 08:22 Reassessment: Patient and/or family updated on plan of care and expected duration. Pain ap3 level reassessed. General: Appears ill, Behavior is cooperative, appropriate for age, Reports chills for fever for feeling ill for fatigue for. Pain: Complains of pain in back and abdomen. Neuro: Level of Consciousness is awake, alert, obeys commands, Oriented to person, place, time, situation. 09:56 General: awaiting UA results prior to discharge. ap3 Vital Signs: 07:19 BP 97 / 61; Pulse 92; Resp 18; Temp 100.1(O); Pulse Ox 98% on R/A; Weight 44.45 kg; ap3 Height 5 ft. 3 in. ; 09:56 BP 96 / 66; Pulse 85; Resp 19; Pulse Ox 100% on R/A; ap3 07:19 Body Mass Index 17.36 (44.45 kg, 160.02 cm) - Percentile 2.7 % ap3 ED Course: 07:19 Patient arrived in ED. ap3 07:19 Rupa Stevens, FLAVIA is Primary Nurse. ap3 07:19 Huber Ruffin MD is Attending Physician. leon 07:23 Triage completed. ap3 07:24 Arm band placed on right wrist. ap3 07:36 CBC with Diff Sent. ap3 07:36 CMP Sent. ap3 07:36 Lipase Sent. ap3 08:15 Chest Pa And Lat (2 Views) XRAY In Process Unspecified. EDMS 08:21 Strep Sent. ap3 08:21 SARS RAPID Sent. ap3 08:21 Flu Sent. ap3 09:38 CT Abd/Pelvis - IV Contrast Only In Process Unspecified. EDMS 10:04 Warm blanket given. Verbal reassurance given. am7 10:41 No provider procedures requiring assistance completed. IV discontinued, intact, ap3 bleeding controlled, No redness/swelling at site. Pressure dressing applied. 10:42 Provided Education on: medications prior to administration . ap3 10:42 Patient has correct armband on for positive identification. Bed in low position. Call ap3 light in reach. Side rails up X2. Administered Medications: 07:36 Not Given (given with EMS): ondansetron 4 mg IVP once; over 2 minutes ap3 07:43 Not Given (Duplicate Order): ns 0.9% 1000 ml IV at 1 bolus Per protocol; to be given as leon a bolus over 60 minutes 07:44 Drug: Famotidine IVP 20 mg IVP once; dilute with 10 mL 0.9% NaCl; give over 2 minutes ap3 Route: IVP; Site: left antecubital; 09:59 Follow up: Response: No adverse reaction ap3 07:45 Drug: NS 0.9% IV (30 ml/kg) 30 ml/kg IV at bolus once; Sepsis Protocol; to be given as ap3 a bolus over 90 minutes Route: IV; Rate: bolus; Site: left antecubital; 09:15 Follow up: IV Status: Completed infusion; IV Intake: 1333ml ap3 08:21 Drug: Acetaminophen PO 650 mg PO once Route: PO; ap3 09:59 Follow up: Response: No adverse reaction ap3 08:57 Drug: Rocephin IV 1 grams IV at per protocol once; Given slow IV push per pharmacy ap3 instructions Route: IV; Rate: per protocol; Site: left antecubital; 09:59 Follow up: IV Status: Completed infusion ap3 Medication: 10:42 VIS not applicable for this client. ap3 Intake: 09:15 IV: 1333ml; Total: 1333ml. ap3 Outcome: 09:48 Discharge ordered by . leon 10:42 Discharged to home ambulatory, ap3 10:42 Condition: good 10:42 Discharge instructions given to patient, Instructed on discharge instructions, follow up and referral plans. medication usage, Demonstrated understanding of instructions, follow-up care, medications, Prescriptions given X 2, 10:43 Patient left the ED. ap3 Signatures: Dispatcher [employer] EDHuber Jaramillo MD MD cha Prokisch, Amanda, RN RN ap3 Alejandra Garza am7
--- NOTE | 2024-08-21 09:49 | EDPHYS ---
Physician Documentation [facility] Name: Ana Paula Nielson Age: 18 yrs Sex: Female : 2005 Arrival Date: 08/21/2024 Time: 07:11 Bed 13 Private MD: ED Physician Huber Ruffin HPI: 08/21 07:44 This 18 yrs old Female presents to ER via EMS with complaints of nausea/ leon vomiting, fever, abd pain. 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 - Infectious Disease History:: Denies. - Social history:: Smoking status: Reported history of juuling and/or vaping. ROS: 07:45 Eyes: Negative for injury, pain, redness, and discharge, ENT: Negative for injury, leon pain, and discharge, Neck: Negative for injury, pain, and swelling, Cardiovascular: Negative for chest pain, palpitations, and edema, Respiratory: Negative for shortness of breath, cough, wheezing, and pleuritic chest pain, Back: Negative for injury and pain, : Negative for injury, bleeding, discharge, and swelling, MS/Extremity: Negative for injury and deformity, Skin: Negative for injury, rash, and discoloration, Neuro: Negative for headache, weakness, numbness, tingling, and seizure, Psych: Negative for depression, anxiety, suicide ideation, homicidal ideation, and hallucinations, Allergy/Immunology: Negative for hives, rash, and allergies, Endocrine: Negative for neck swelling, polydipsia, polyuria, polyphagia, and marked weight changes, Hematologic/Lymphatic: Negative for swollen nodes, abnormal bleeding, and unusual bruising, 07:45 Constitutional: Positive for body aches, chills, fatigue, fever, malaise, poor PO intake, 07:45 Abdomen/GI: Positive for abdominal pain, nausea and vomiting, diarrhea, Exam: 07:45 Head/Face: Normocephalic, atraumatic. Eyes: Pupils equal round and reactive to light, leon extra-ocular motions intact. Lids and lashes normal. Conjunctiva and sclera are non-icteric and not injected. Cornea within normal limits. Periorbital areas with no swelling, redness, or edema. ENT: Nares patent. No nasal discharge, no septal abnormalities noted. Tympanic membranes are normal and external auditory canals are clear. Oropharynx with no redness, swelling, or masses, exudates, or evidence of obstruction, uvula midline. Mucous membranes moist. Neck: Trachea midline, no thyromegaly or masses palpated, and no cervical lymphadenopathy. Supple, full range of motion without nuchal rigidity, or vertebral point tenderness. No Meningismus. Chest/axilla: Normal chest wall appearance and motion. Nontender with no deformity. No lesions are appreciated. Cardiovascular: Regular rate and rhythm with a normal S1 and S2. No gallops, murmurs, or rubs. Normal PMI, no JVD. No pulse deficits. Respiratory: Lungs have equal breath sounds bilaterally, clear to auscultation and percussion. No rales, rhonchi or wheezes noted. No increased work of breathing, no retractions or nasal flaring. Back: No spinal tenderness. No costovertebral tenderness. Full range of motion. Skin: Warm, dry with normal turgor. Normal color with no rashes, no lesions, and no evidence of cellulitis. MS/ Extremity: Pulses equal, no cyanosis. Neurovascular intact. Full, normal range of motion., bilateral aka Neuro: Awake and alert, GCS 15, oriented to person, place, time, and situation. Cranial nerves II-XII grossly intact. Motor strength 5/5 in all extremities. Sensory grossly intact. Cerebellar exam normal. Normal gait. Psych: Awake, alert, with orientation to person, place and time. Behavior, mood, and affect are within normal limits. 07:45 Abdomen/GI: Inspection: abdomen appears normal, Bowel sounds: normal, Palpation: mild abdominal tenderness, in all quadrants, Liver: no appreciated palpable abnormalities, Hernia: not appreciated, Vital Signs: 07:19 BP 97 / 61; Pulse 92; Resp 18; Temp 100.1(O); Pulse Ox 98% on R/A; Weight 44.45 kg; ap3 Height 5 ft. 3 in. ; 09:56 BP 96 / 66; Pulse 85; Resp 19; Pulse Ox 100% on R/A; ap3 07:19 Body Mass Index 17.36 (44.45 kg, 160.02 cm) - Percentile 2.7 % ap3 MDM: 07:19 Medical Screening Exam initiated leon 07:46 Differential diagnosis: Nonspecific abd pain, gastritis, pancreatitis, appendicitis, leon diverticulitis, viral gastroenteritis, gastroenteritis, Cholelithiasis, diverticulitis, non-specific abd pain, pancreatitis, Ureterolithiasis, urinary tract infection. Data reviewed: vital signs, nurses notes, lab test result(s), radiologic studies, CT scan, plain films. Consideration of Admission/Observation Escalation of care including admission/observation considered. I considered the following discharge prescriptions or medication management in the emergency department Medications were administered in the Emergency Department. See MAR. Independent interpretation of the following test(s) in the Emergency Department X-Ray: My interpretation is cxr neg. Test considered but Not performed: Ultrasound no abd usg. Care significantly affected by the following chronic conditions: immumiodeficiency, anxiety, depression. 08/21 07:42 Order name: Strep [facility] 08/21 07:20 Order name: CBC with Diff; Complete Time: 09:00 [facility] 08/21 07:20 Order name: CMP; Complete Time: 09:00 [facility] 08/21 07:20 Order name: Lipase; Complete Time: 09:00 [facility] 08/21 07:20 Order name: Test, Urine [facility] 08/21 07:20 Order name: Urinalysis w/ reflexes [facility] 08/21 07:42 Order name: Blood Culture Adult (2) [facility] 08/21 07:42 Order name: Lactate w/ 2H reflex if indic.; Complete Time: 09:38 [facility] 08/21 07:42 Order name: Flu; Complete Time: 09:00 [facility] 08/21 07:42 Order name: SARS RAPID; Complete Time: 09:00 [facility] 08/21 08:51 Order name: Throat Culture [facility] 08/21 07:42 Order name: Chest Pa And Lat (2 Views) XRAY; Complete Time: 09:00 [facility] 08/21 07:43 Order name: CT Abd/Pelvis - IV Contrast Only; Complete Time: 09:47 [facility] 08/21 07:20 Order name: IV Saline Lock; Complete Time: 07:24 [facility] 08/21 07:20 Order name: Labs collected and sent; Complete Time: 07:36 [facility] 08/21 09:00 Order name: PO challenge; Complete Time: 09:17 [facility] 08/21 09:38 Order name: Nica. Order: get ua; Complete Time: 09:57 leon Administered Medications: 07:36 Not Given (given with EMS): ondansetron 4 mg IVP once; over 2 minutes ap3 07:43 Not Given (Duplicate Order): ns 0.9% 1000 ml IV at 1 bolus Per protocol; to be given as leon a bolus over 60 minutes 07:44 Drug: Famotidine IVP 20 mg IVP once; dilute with 10 mL 0.9% NaCl; give over 2 minutes ap3 Route: IVP; Site: left antecubital; 09:59 Follow up: Response: No adverse reaction ap3 07:45 Drug: NS 0.9% IV (30 ml/kg) 30 ml/kg IV at bolus once; Sepsis Protocol; to be given as ap3 a bolus over 90 minutes Route: IV; Rate: bolus; Site: left antecubital; 09:15 Follow up: IV Status: Completed infusion; IV Intake: 1333ml ap3 08:21 Drug: Acetaminophen PO 650 mg PO once Route: PO; ap3 09:59 Follow up: Response: No adverse reaction ap3 08:57 Drug: Rocephin IV 1 grams IV at per protocol once; Given slow IV push per pharmacy ap3 instructions Route: IV; Rate: per protocol; Site: left antecubital; 09:59 Follow up: IV Status: Completed infusion ap3 Disposition Summary: 08/21/24 09:48 Discharge Ordered Notes: Location: Home leon Problem: new leon Symptoms: have improved leon Condition: Stable leon Diagnosis - Vomiting leon - Fever, unspecified leon - Abdominal pain, unspecified leon - Other malaise and fatigue leon Followup: leon - With: Private Physician - When: 2 - 3 days - Reason: Recheck today's complaints, Continuance of care, Re-evaluation by your physician Discharge Instructions: - Discharge Summary Sheet leon - Abdominal Pain, Adult leon - Fever, Adult leon - Nausea and Vomiting, Adult leon - Nausea and Vomiting, Adult, [id number] leon - Abdominal Pain, Adult, [id number] leon Forms: - Medication Reconciliation Form leon - Antibiotic Education leon - Prescription Opioid Use leon - Patient Portal Instructions leon - Leadership Thank You Letter [facility] Prescriptions: - cefdinir 300 mg Oral capsule - take 1 capsule ORAL route 2 times per day for 7 days; 14 capsule; Refills: 0, leon Product Selection Permitted - ondansetron 4 mg Oral Tablet,disintegrating - take 1 tablet ORAL route every 8 hours for 5 days prn nausea/ vomiting; 20 leon tablet; Refills: 0, Product Selection Permitted Signatures: Dispatcher [employer] EDMS Huber Ruffin MD MD cha Prokisch, Amanda RN RN ap3 Corrections: (The following items were deleted from the chart) 07:43 07:43 BLOOD CULTURE*+BA.LAB.BRZ ordered. EDMS EDMS 07:43 07:43 LACTATE+C.LAB.BRZ ordered. EDMS EDMS 07:43 07:43 Influenza Screen (A \T\ B)+BA.LAB.BRZ ordered. EDMS EDMS 07:43 07:43 SARS-COV-2 Antigen Rapid+I.LAB.BRZ ordered. EDMS EDMS 07:43 07:43 Group A Streptococcus Rapid Sc+BA.LAB.BRZ ordered. EDMS EDMS
[2024-08-21 10:14] LABS: Specific Gravity > 1.030 (1.005-1.030)
[2024-08-21 10:20] LABS: Urine Bacteria 20-50 /HPF (<20); Urine Bilirubin NEGATIVE (Negative); Urine Blood Negative (Negative); Urine Clarity Clear (Clear); Urine Color Light-Yellow (Yellow); Urine Culture Reflex Order NOT NEEDED; Urine Glucose NEGATIVE (Negative); Urine Ketones 2+ (Negative); Urine Microscopic Reflex YN ORDER UMIC; Urine Mucus Slight /HPF (None Seen); Urine Nitrite NEGATIVE (Negative); Urine Protein TRACE (Negative); Urine RBC <5 /HPF (None Seen); Urine Urobilinogen 1+ (Normal); Urine WBC <5 /HPF (<5); Urine pH 6.5 (5.0-7.0)
[2024-08-21 10:21] LABS: Specific Gravity > 1.030 (1.005-1.030)
[2024-08-21 11:04] VITALS: BP 96/66; TEMP 100.1; O2SAT 100
== END 2024-08-21 10:43 | disposition home or self-care (01) ==
LOC: ER 07:11
DX: R11.10 Vomiting, unspecified (principal); R50.9 Fever, unspecified; R10.9 Unspecified abdominal pain; R53.81 Other malaise; R53.83 Other fatigue
CPT/HCPCS: 36415; 71046; 74177; 80053; 81001; 81025; 83605; 83690; 85025; 87040; 87070; 87081; 87804; 87811; 96365; 96375; 99284; J0696; J7030; J7040; Q9967

== ENCOUNTER 2024-08-24 01:44 | Emergency (ER) | payer SELFPAY ==
--- OUTSIDE RECORDS SUMMARY | 2024-08-24 01:54 | XMS REPORT | Continuity of Care Document ---
Author Name Unknown Address [address] [facility] [address] [place] [address] [facility] Address [address] [facility] [place] [address] Care Team Providers Care Cardiac Technologist Name Role Phone Ivonne Nayak PA-C Primary Care Physician + Melonie Scott RN Attending Clinician Unavailable JENNIFER ROCHE Attending Clinician Unavailab JENNIFER Mueller Attending Clinician Unavailab Jennifer Mueller DO Attending Clinician [phone] Josselyn Duran RN Attending Clinician UnavailSushma Costello Attending Clinician [phone] SUSHMA SESAY Attending Clinician UnavailIVONNE Mondragon Attending Clinician Unavailab ASHLEY Michel Attending Clinician Unavailable GREG PATEL Attending Clinician Unavailable GREG PATEL Attending Clinician Unavailable Ivonne Nayak PA-C Attending Clinician [phone] IVY TAVARES Attending Clinician CASIE Schuster Attending Clinician Unavailable CASIE ONEIL Attending Clinician Unavailable Simona Paz Attending Clinician Ivonne Escobar PA-C Attending Clinician [phone] Doctor Unassigned, [place] Attending Clinician Ivy Leong MD Attending Clinician + [phone] Kadi Romero MD Attending Clinician +[phone] KADI ROMERO Attending Clinician Unavailgricelda Prater [facility], Janny Martinez Attending Clinician [phone] Sushma Thornton Attending Clinician +[phone] ALEJO LLOYD Attending Clinici an Unavailable Alejo Lloyd MD Attending Clin ician RICARDO SEVERINO Attending Clinician Unavailable Mere PAC, Ricardo S Attending Clinician [phone] Asael Lugo MD, Hanna Attending Clinician + [phone] Christiano Hartman MD Attending Clinician [phone] CHRISTIANO HARTMAN Attending Clinician Unavailable YENI REINA Attending Clinician Unavail able Yeni Reina MD Attending Clinician [phone] Zain Rosas MD Attending Clinician [phone] ZAIN ROSAS Attending Clinician Unavailable Jessica ORTEGA Attending Clinician Unavailable Jessica Jarvis Attending Clinician [phone] Therapy, [facility] Attending Clinician Unavailable Harman Escalona DO Attending Clinician [phone] HARMAN ESCALONA Attending Clinician Unavailable YORDAN SELF Attending Clinician Unaaida altman [facility] Attending Clinician U Yordan Crandall MD Attending Clinician + SEBASTIEN SOLANO Attending Clinician Unavailable Claudia Johnson MD Attending Clinician Nurse, Jazz Bucio Attending Clinician Unavailable CHEN SHIELDS Attending Clinician Unavailable Chen Shields MD Attending Clinician [phone] Jeison Farrell Attending Clinician +[phone] CHRISTIANO DISLA Attending Clinician Unavailable Christiano Franklin Attending Clinician [phone] KADI ROMERO Admitting Clinician UnavailCHEN Mclaughlin Admitting Clinician Unavailable CHRISTIANO DISLA Admitting Clinician Unavailable Payers Payer Name Policy Type Policy Number Effective Date Expirati on Date Source [employer] MEDICA[employer] [id number] 2015 00:00:00 Problems Condition Name Condition Details Condition Category Status Onset Date Resolution Date Last Treatment Date Treating Clinician Comments Source Dysmenorrh ea Dysmenorrh ea Disease Active 11-09 00:00: 00 [facility] Counseling for initiation of control method Counseling for initiation of control method Disease Active 11-09 00:00: 00 [facility] Weight loss Weight loss Disease Active - 00:00: 00 [facility] Recurrent infections Recurrent infections Disease Active 09-10 00:00: 00 [facility] Recurrent infections Recurrent infections Disease Active 09-10 00:00: 00 [facility] 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 02-14 00:00: 00 [facility] 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 02-14 00:00: 00 [facility] Allergies, Adverse Reactions, Alerts Allergy Name Allergy Type Status Severity Reaction(s) Onset Date Inactive Date Treating Clinician Comments Source NO KNOWN ALLERGIE S Drug Class Active [facility] Social History Social Habit Start Date Stop Date Quantity Comments Source Gender identity [facility]coholic beverage intake 2024 00:00:00 2024 00:00:00 Lifetime non-drinker (finding) [facility] History of Social function 2024-02-15 00:00:00 2024-02-15 00:00:00 [facility] Alcohol intake 2023-10-21 00:00:00 2023-10-21 00:00:00 Lifetime non-drinker (finding) [facility] Tobacco use and exposure 2023-06-08 00:00:00 2023-06-08 00:00:00 User of smokeless tobacco [facility] Tobacco Comment 2023-06-08 00:00:00 2023-06-08 00:00:00 Vapes [facility] Exposure to SARS-CoV-2 (event) 2023-01-18 00:00:00 2023-01-28 14:47:00 Not sure [facility] Sex assigned at 2004 00:00:00 2005 00:00:00 [facility] Smoking Status Start Date Stop Date Source Never smoked tobacco [facility] Medications Ordered Medication Name Filled Medication Name Start Date Stop Date Current Medication? Ordering Clinician Indication Dosage Frequency Signature (SIG) Comments Components Source ondansetron (ZOFRAN-ODT ) disintegrat ing tablet 4 mg 2023-08 20:00: 00 08-22 19:19 :00 No 4mg 4 mg, Oral, ONCE, 1 dose, On Thu08/22/24 at 1400, Routine [facility] acetaminoph en (TYLENOL) tablet 650 mg 2023-08 19:15: 00 08-22 19:20 :00 No 650mg 650 mg, Oral, ONCE, 1 dose, On Thu08/22/24 at 1315, AAKASH [facility] ondansetron 4 mg disintegrat ing tablet 2023-08 00:00: 00 Yes [id number] 4mg Take 1 tablet by mouth every 8 (eight) hours as needed for Nausea and Vomiting (N/V). [facility] cetirizine (ZYRTEC) 10 mg tablet 2023-08 00:00: 00 09-11 05:59 :00 Yes [id number] 10mg Take 1 tablet by mouth in the morning for 30 days. [facility] fluticasone propionate 50 mcg/actuati on nasal spray 2023-08 00:00: 00 09-11 05:59 :00 Yes [id number] 1{spray } Use 1 Hickman in each nostril in the morning for 30 days. [facility] FLUoxetine 10 mg capsule -10 00:00: 00 Yes [id number] Take one capsule once at day for two weeks then increase to two tabs po once a day [facility] norgestimat e-ethinyl estradioL 0.25-35 mg-mcg per tablet 02-25 00:00: 00 Yes [id number] 1{tbl} Take 1 tablet by mouth in the morning. [facility] traZODone 50 mg tablet 02-14 00:00: 00 Yes [id number] 50mg Take 1 tablet by mouth at bedtime. [facility] amoxicillin -pot clavulanate 600-42.9 mg/5 mL suspension 10-21 00:00: 00 02-14 00:00 :00 No [id number] Give 7.5 ml po bid for 10 days [facility] famotidine 20 mg tablet 2022-08 00:00: 00 08-22 00:00 :00 No 20mg Take 1 tablet by mouth in the morning and 1 tablet in the evening. [facility] ondansetron 8 mg disintegrat ing tablet 2022-08 00:00: 00 08-22 00:00 :00 No [id number] 8mg Take 1 tablet by mouth every 8 (eight) hours as needed for Nausea and Vomiting (N/V). [facility] traZODone 50 mg tablet 2022-08 00:00: 00 02-14 00:00 :00 No [id number] 50mg Take 1 tablet by mouth at bedtime. [facility] azithromyci n (ZITHROMAX) 200 mg/5 mL suspension 2022-08 0- 00:00: 00 07-22 00:00 :00 No [id number] 12.5 ml po day 1 then 6.25 ml po days 2-5 [facility] hydrOXYzine 10 mg tablet - 00:00: 00 06-08 00:00 :00 No [id number] Take 1 to 2 po qhs for sleep and anxiety [facility] amoxicillin -pot clavulanate 600-42.9 mg/5 mL suspension 5-24 00:00: 00 06-08 00:00 :00 No [id number] Take 10 ml po bid for 10 days [facility] FLUOXETINE 20 mg capsule 5-19 00:00: 00 03-30 00:00 :00 No [id number] TAKE ONE (1) CAPSULE(S) BY MOUTH EVERY MORNING. [facility] pedi multivit no.140-iron fum (KIDS MULTIVITAMI N COMPLETE) 18 mg iron Chew -20 00:00: 00 Yes [id number] 1{tbl} Take 1 tablet by mouth in the morning. [facility] pedi multivit no.140-iron fum (KIDS MULTIVITAMI N COMPLETE) 18 mg iron Chew -20 00:00: 00 Yes [id number] 1{tbl} Take 1 tablet by mouth in the morning. [facility] fluticasone propionate 50 mcg/actuati on nasal spray 12-18 00:00: 00 08-22 00:00 :00 No [id number] 1{spray } Use 1 Hickman in each nostril in the morning. [facility] cetirizine 10 mg tablet 12-18 00:00: 00 03-30 00:00 :00 No [id number] 10mg Take 1 tablet by mouth in the morning. [facility] azithromyci n 250 mg tablet 12-18 00:00: 00 03-30 00:00 :00 No [id number] 250mg Take 1 tablet by mouth in the morning. [facility] FLUoxetine 20 mg capsule - 00:00: 00 01-16 00:00 :00 No 20mg Take 1 capsule by mouth in the morning. [facility] ibuprofen (IBU) tablet 400 mg 04 20:00: 00 12-02 19:16 :00 No [id number] 400mg [facility] dextrometho rphan-guaif enesin 10-100 mg/5 mL solution 2021-08 0-17 00:00: 00 08-22 00:00 :00 No [id number] 10mL Take 10 mL by mouth every 6 (six) hours as needed for Cough. [facility] cetirizine 10 mg tablet 2021-08 00:00: 00 12-18 00:00 :00 No [id number] 10mg Take 1 tablet by mouth in the morning. [facility] fluticasone propionate 50 mcg/actuati on nasal spray 2021-08 00:00: 00 12-18 00:00 :00 No [id number] 1{spray } Use 1 Hickman in each nostril in the morning. [facility] azithromyci n (ZITHROMAX Z-MILENA) 250 mg tablet 2021-08 00:00: 00 12-18 00:00 :00 No [id number] 250mg Z-Milena = 500 mg day 1, then 250 mg days 2 to 5. [facility] Immune Globulin, Human,, IGG, (HIZENTRA) 4 gram/20 mL (20 %) subcutaneou s infusion RTU 05-29 00:00: 00 Yes [id number] 8g inject 40 mL under the skin every 2 (two) weeks. [facility] pedi multivit no.140-iron fum (KIDS MULTIVITAMI N COMPLETE) 18 mg iron Chew 05-23 00:00: 00 12-18 00:00 :00 No [id number] 1{tbl} Take 1 tablet by mouth daily. [facility] cefdinir 125 mg/5 mL suspension 05-23 00:00: 00 06-07 04:59 :00 No [id number] 250mg Take 10 mL by mouth in the morning and 10 mL in the evening. Do all this for 14 days. [facility] ibuprofen (IBU) tablet 600 mg 03-21 05:30: 00 03-21 05:18 :00 No 600mg 600 mg, Oral, ONCE, 1 dose, On Thu03/21/22 at 0030, AAKASH [facility] Immune Globulin, Human,, IGG, (HIZENTRA) 4 gram/20 mL (20 %) subcutaneou s infusion RTU 02-24 00:00: 00 05-29 00:00 :00 No [id number] 8g inject 40 mL under the skin every 2 (two) weeks. [facility] amoxicillin 400 mg/5 mL oral suspension 01-01 00:00: 00 02-24 00:00 :00 No [id number] Give 12.5 ml PO BID for 10 days [facility] benzonatate (TESSALON PERLES) 100 mg capsule 01-01 00:00: 02-24 00:00 :00 No [id number] 100mg Take 1 capsule by mouth every 8 (eight) hours as needed for Cough. [facility] albuterol (PROAIR HFA) 90 mcg/actuati on inhaler 11-29 00:00: 00 Yes [id number] 2{puff} Inhale 2 Puffs every 6 (six) hours as needed for Wheezing or Shortness of Breath. [facility] fluticasone propionate 44 mcg/actuati on inhaler 11-29 00:00: 00 08-22 00:00 :00 No [id number] 2{puff} Inhale 2 Puffs 2 (two) times daily. [facility] cetirizine 10 mg tablet 11-29 00:00: 00 06-16 00:00 :00 No [id number] 10mg Take 1 tablet by mouth daily. [facility] Immunizations Ordered Immunization Name Filled Immunization Name Date Status Comments Source Influenza Virus Vaccine Quad .5 mL IM 6+ MO (FLUZONE/FLULAVAL/FL UARIX) 2021-07-01 00:00:00 Completed Influenza Virus Vaccine Quad .5 mL IM 6+ MO 2021-07-01 00:00:00 Completed [facility] Influenza Virus Vaccine Quad .5 mL IM 6+ MO 2021-07-01 00:00:00 Completed [facility] Influenza Virus Vaccine Quad .5 mL IM 6+ MO 2021-07-01 00:00:00 Completed [facility] Influenza Virus Vaccine Quad .5 mL IM 6+ MO 2021-07-01 00:00:00 Completed [facility] Influenza Virus Vaccine Quad .5 mL IM 6+ MO 2021-07-01 00:00:00 Completed [facility] Influenza Virus Vaccine Quad .5 mL IM 6+ MO 2021-07-01 00:00:00 Completed [facility] Influenza Virus Vaccine Quad .5 mL IM 6+ MO 2021-07-01 00:00:00 Completed [facility] Influenza Virus Vaccine Quad .5 mL IM 6+ MO 2021-07-01 00:00:00 Completed [facility] Influenza Virus Vaccine Quad .5 mL IM 6+ MO 2021-07-01 00:00:00 Completed [facility] Influenza Virus Vaccine Quad .5 mL IM 6+ MO 2021-07-01 00:00:00 Completed [facility] Influenza Virus Vaccine Quad .5 mL IM 6+ MO 2021-07-01 00:00:00 Completed [facility] Influenza Virus Vaccine Quad .5 mL IM 6+ MO 2021-07-01 00:00:00 Completed [facility] Influenza Virus Vaccine Quad .5 mL IM 6+ MO 2021-07-01 00:00:00 Completed [facility] Influenza Virus Vaccine Quad .5 mL IM 6+ MO 2021-07-01 00:00:00 Completed [facility] Influenza Virus Vaccine Quad .5 mL IM 6+ MO 2021-07-01 00:00:00 Completed [facility] Influenza Virus Vaccine Quad .5 mL IM 6+ MO 2021-07-01 00:00:00 Completed [facility] Influenza Virus Vaccine Quad .5 mL IM 6+ MO 2021-07-01 00:00:00 Completed [facility] Influenza Virus Vaccine Quad .5 mL IM 6+ MO 2021-07-01 00:00:00 Completed [facility] Influenza Virus Vaccine Quad .5 mL IM 6+ MO 2021-07-01 00:00:00 Completed [facility] Influenza Virus Vaccine Quad .5 mL IM 6+ MO 2021-07-01 00:00:00 Completed [facility] Influenza Virus Vaccine Quad .5 mL IM 6+ MO 2021-07-01 00:00:00 Completed [facility] Influenza Virus Vaccine Quad .5 mL IM 6+ MO 2021-07-01 00:00:00 Completed [facility] Influenza Virus Vaccine Quad .5 mL IM 6+ MO 2021-07-01 00:00:00 Completed [facility] Influenza Virus Vaccine Quad .5 mL IM 6+ MO 2021-07-01 00:00:00 Completed [facility] Influenza Virus Vaccine Quad .5 mL IM 6+ MO 2021-07-01 00:00:00 Completed [facility] Influenza Virus Vaccine Quad .5 mL IM 6+ MO 2021-07-01 00:00:00 Completed [facility] Influenza Virus Vaccine Quad .5 mL IM 6+ MO 2021-07-01 00:00:00 Completed [facility] Influenza Virus Vaccine Quad .5 mL IM 6+ MO 2021-07-01 00:00:00 Completed [facility] Influenza Virus Vaccine Quad .5 mL IM 6+ MO 2021-07-01 00:00:00 Completed [facility] Influenza Virus Vaccine Quad .5 mL IM 6+ MO 2021-07-01 00:00:00 Completed [facility] Influenza Virus Vaccine Quad .5 mL IM 6+ MO 2021-07-01 00:00:00 Completed [facility] Influenza Virus Vaccine Quad .5 mL IM 6+ MO 2021-07-01 00:00:00 Completed [facility] Influenza Virus Vaccine Quad .5 mL IM 6+ MO (FLUZONE/FLULAVAL/FL UARIX) 2021-07-01 00:00:00 Completed [facility] Influenza Virus Vaccine Quad .5 mL IM 6+ MO 2020-11-08 00:00:00 Completed [facility] Influenza Virus Vaccine Quad .5 mL IM 6+ MO 2020-11-08 00:00:00 Completed [facility] Influenza Virus Vaccine Quad .5 mL IM 6+ MO 2020-11-08 00:00:00 Completed [facility] Influenza Virus Vaccine Quad .5 mL IM 6+ MO 2020-11-08 00:00:00 Completed [facility] Influenza Virus Vaccine Quad .5 mL IM 6+ MO 2020-11-08 00:00:00 Completed [facility] Influenza Virus Vaccine Quad .5 mL IM 6+ MO (FLUZONE/FLULAVAL/FL UARIX) 2020-11-08 00:00:00 Completed [facility] Influenza Virus Vaccine Quad .5 mL IM 6+ MO (FLUZONE/FLULAVAL/FL UARIX) 2020-11-08 00:00:00 Completed [facility] Influenza Virus Vaccine Quad .5 mL IM 6+ MO 2020-11-08 00:00:00 Completed [facility] Influenza Virus Vaccine Quad .5 mL IM 6+ MO 2020-11-08 00:00:00 Completed [facility] Influenza Virus Vaccine Quad .5 mL IM 6+ MO 2020-11-08 00:00:00 Completed [facility] Influenza Virus Vaccine Quad .5 mL IM 6+ MO 2020-11-08 00:00:00 Completed [facility] Influenza Virus Vaccine Quad .5 mL IM 6+ MO 2020-11-08 00:00:00 Completed [facility] Influenza Virus Vaccine Quad .5 mL IM 6+ MO 2020-11-08 00:00:00 Completed [facility] Influenza Virus Vaccine Quad .5 mL IM 6+ MO 2020-11-08 00:00:00 Completed [facility] Influenza Virus Vaccine Quad .5 mL IM 6+ MO 2020-11-08 00:00:00 Completed [facility] Influenza Virus Vaccine Quad .5 mL IM 6+ MO 2020-11-08 00:00:00 Completed [facility] Influenza Virus Vaccine Quad .5 mL IM 6+ MO 2020-11-08 00:00:00 Completed [facility] Influenza Virus Vaccine Quad .5 mL IM 6+ MO 2020-11-08 00:00:00 Completed [facility] Influenza Virus Vaccine Quad .5 mL IM 6+ MO 2020-11-08 00:00:00 Completed [facility] Influenza Virus Vaccine Quad .5 mL IM 6+ MO 2020-11-08 00:00:00 Completed [facility] Influenza Virus Vaccine Quad .5 mL IM 6+ MO 2020-11-08 00:00:00 Completed [facility] Influenza Virus Vaccine Quad .5 mL IM 6+ MO 2020-11-08 00:00:00 Completed [facility] Influenza Virus Vaccine Quad .5 mL IM 6+ MO 2020-11-08 00:00:00 Completed [facility] Influenza Virus Vaccine Quad .5 mL IM 6+ MO 2020-11-08 00:00:00 Completed [facility] Influenza Virus Vaccine Quad .5 mL IM 6+ MO 2020-11-08 00:00:00 Completed [facility] Influenza Virus Vaccine Quad .5 mL IM 6+ MO 2020-11-08 00:00:00 Completed [facility] Influenza Virus Vaccine Quad .5 mL IM 6+ MO 2020-11-08 00:00:00 Completed [facility] Influenza Virus Vaccine Quad .5 mL IM 6+ MO 2020-11-08 00:00:00 Completed [facility] Influenza Virus Vaccine Quad .5 mL IM 6+ MO 2020-11-08 00:00:00 Completed [facility] Influenza Virus Vaccine Quad .5 mL IM 6+ MO 2020-11-08 00:00:00 Completed [facility] Influenza Virus Vaccine Quad .5 mL IM 6+ MO 2020-11-08 00:00:00 Completed [facility] Influenza Virus Vaccine Quad .5 mL IM 6+ MO 2020-11-08 00:00:00 Completed [facility] Influenza Virus Vaccine Quad .5 mL IM 6+ MO 2020-11-08 00:00:00 Completed [facility] Influenza Virus Vaccine Quad .5 mL IM 6+ MO 2020-11-08 00:00:00 Completed [facility] Pneumococcal Polysaccharide, PPSV23 (PNEUMOVAX) 2020-09-24 00:00:00 Completed [facility] TDAP 2020-09-24 00:00:00 Completed Pneumococcal Polysaccharide, PPSV23 (PNEUMOVAX) 2020-09-24 00:00:00 Completed [facility] TDAP 2020-09-24 00:00:00 Completed [facility] Pneumococcal Polysaccharide, PPSV23 (PNEUMOVAX) 2020-09-24 00:00:00 Completed [facility] TDAP 2020-09-24 00:00:00 Completed [facility] Pneumococcal Polysaccharide, PPSV23 (PNEUMOVAX) 2020-09-24 00:00:00 Completed [facility] TDAP 2020-09-24 00:00:00 Completed [facility] Pneumococcal Polysaccharide, PPSV23 (PNEUMOVAX) 2020-09-24 00:00:00 Completed [facility] TDAP 2020-09-24 00:00:00 Completed [facility] Pneumococcal Polysaccharide, PPSV23 (PNEUMOVAX) 2020-09-24 00:00:00 Completed [facility] TDAP 2020-09-24 00:00:00 Completed [facility] Pneumococcal Polysaccharide, PPSV23 (PNEUMOVAX) 2020-09-24 00:00:00 Completed [facility] TDAP 2020-09-24 00:00:00 Completed [facility] Pneumococcal Polysaccharide, PPSV23 (PNEUMOVAX) 2020-09-24 00:00:00 Completed [facility] TDAP 2020-09-24 00:00:00 Completed [facility] Pneumococcal Polysaccharide, PPSV23 (PNEUMOVAX) 2020-09-24 00:00:00 Completed [facility] TDAP 2020-09-24 00:00:00 Completed [facility] Pneumococcal Polysaccharide, PPSV23 (PNEUMOVAX) 2020-09-24 00:00:00 Completed [facility] TDAP 2020-09-24 00:00:00 Completed [facility] Pneumococcal Polysaccharide, PPSV23 (PNEUMOVAX) 2020-09-24 00:00:00 Completed [facility] TDAP 2020-09-24 00:00:00 Completed [facility] Pneumococcal Polysaccharide, PPSV23 (PNEUMOVAX) 2020-09-24 00:00:00 Completed [facility] TDAP 2020-09-24 00:00:00 Completed [facility] Pneumococcal Polysaccharide, PPSV23 (PNEUMOVAX) 2020-09-24 00:00:00 Completed [facility] TDAP 2020-09-24 00:00:00 Completed [facility] Pneumococcal Polysaccharide, PPSV23 (PNEUMOVAX) 2020-09-24 00:00:00 Completed [facility] TDAP 2020-09-24 00:00:00 Completed [facility] Pneumococcal Polysaccharide, PPSV23 (PNEUMOVAX) 2020-09-24 00:00:00 Completed [facility] TDAP 2020-09-24 00:00:00 Completed [facility] Pneumococcal Polysaccharide, PPSV23 (PNEUMOVAX) 2020-09-24 00:00:00 Completed [facility] TDAP 2020-09-24 00:00:00 Completed [facility] Pneumococcal Polysaccharide, PPSV23 (PNEUMOVAX) 2020-09-24 00:00:00 Completed [facility] TDAP 2020-09-24 00:00:00 Completed [facility] Pneumococcal Polysaccharide, PPSV23 (PNEUMOVAX) 2020-09-24 00:00:00 Completed [facility] TDAP 2020-09-24 00:00:00 Completed [facility] Pneumococcal Polysaccharide, PPSV23 (PNEUMOVAX) 2020-09-24 00:00:00 Completed [facility] TDAP 2020-09-24 00:00:00 Completed [facility] Pneumococcal Polysaccharide, PPSV23 (PNEUMOVAX) 2020-09-24 00:00:00 Completed [facility] TDAP 2020-09-24 00:00:00 Completed [facility] Pneumococcal Polysaccharide, PPSV23 (PNEUMOVAX) 2020-09-24 00:00:00 Completed [facility] TDAP 2020-09-24 00:00:00 Completed [facility] Pneumococcal Polysaccharide, PPSV23 (PNEUMOVAX) 2020-09-24 00:00:00 Completed [facility] TDAP 2020-09-24 00:00:00 Completed [facility] Pneumococcal Polysaccharide, PPSV23 (PNEUMOVAX) 2020-09-24 00:00:00 Completed [facility] TDAP 2020-09-24 00:00:00 Completed [facility] Pneumococcal Polysaccharide, PPSV23 (PNEUMOVAX) 2020-09-24 00:00:00 Completed [facility] TDAP 2020-09-24 00:00:00 Completed [facility] Pneumococcal Polysaccharide, PPSV23 (PNEUMOVAX) 2020-09-24 00:00:00 Completed [facility] TDAP 2020-09-24 00:00:00 Completed [facility] Pneumococcal Polysaccharide, PPSV23 (PNEUMOVAX) 2020-09-24 00:00:00 Completed [facility] TDAP 2020-09-24 00:00:00 Completed [facility] Pneumococcal Polysaccharide, PPSV23 (PNEUMOVAX) 2020-09-24 00:00:00 Completed [facility] TDAP 2020-09-24 00:00:00 Completed [facility] Pneumococcal Polysaccharide, PPSV23 (PNEUMOVAX) 2020-09-24 00:00:00 Completed [facility] [facility]:00:00 Completed [facility] Pneumococcal Polysaccharide, PPSV23 (PNEUMOVAX) 2020-09-24 00:00:00 Completed [facility] TDAP 2020-09-24 00:00:00 Completed [facility] Pneumococcal Polysaccharide, PPSV23 (PNEUMOVAX) 2020-09-24 00:00:00 Completed [facility] TDAP 2020-09-24 00:00:00 Completed [facility] Pneumococcal Polysaccharide, PPSV23 (PNEUMOVAX) 2020-09-24 00:00:00 Completed [facility] TDAP 2020-09-24 00:00:00 Completed [facility] Pneumococcal Polysaccharide, PPSV23 (PNEUMOVAX) 2020-09-24 00:00:00 Completed [facility] TDAP 2020-09-24 00:00:00 Completed [facility] Pneumococcal Polysaccharide, PPSV23 (PNEUMOVAX) 2020-09-24 00:00:00 Completed [facility] TDAP 2020-09-24 00:00:00 Completed [facility] Pneumococcal Polysaccharide, PPSV23 (PNEUMOVAX) 2020-09-24 00:00:00 Completed [facility] TDAP 2020-09-24 00:00:00 Completed [facility] Meningococcal Polysaccharide (groups A, C, Y and W-135) conjugate vaccine (MCV4P) 2020-09-10 00:00:00 Completed [facility] Meningococcal Polysaccharide (groups A, C, Y and W-135) conjugate vaccine (MCV4P) 2020-09-10 00:00:00 Completed [facility] Meningococcal Polysaccharide (groups A, C, Y and W-135) conjugate vaccine (MCV4P) 2020-09-10 00:00:00 Completed [facility] Meningococcal Polysaccharide (groups A, C, Y and W-135) conjugate vaccine (MCV4P) 2020-09-10 00:00:00 Completed [facility] Meningococcal Polysaccharide (groups A, C, Y and W-135) conjugate vaccine (MCV4P) 2020-09-10 00:00:00 Completed [facility] Meningococcal Polysaccharide (groups A, C, Y and W-135) conjugate vaccine (MCV4P) 2020-09-10 00:00:00 Completed [facility] Meningococcal Polysaccharide (groups A, C, Y and W-135) conjugate vaccine (MCV4P) 2020-09-10 00:00:00 Completed [facility] Meningococcal Polysaccharide (groups A, C, Y and W-135) conjugate vaccine (MCV4P) 2020-09-10 00:00:00 Completed [facility] Meningococcal Polysaccharide (groups A, C, Y and W-135) conjugate vaccine (MCV4P) 2020-09-10 00:00:00 Completed [facility] Meningococcal Polysaccharide (groups A, C, Y and W-135) conjugate vaccine (MCV4P) 2020-09-10 00:00:00 Completed [facility] Meningococcal Polysaccharide (groups A, C, Y and W-135) conjugate vaccine (MCV4P) 2020-09-10 00:00:00 Completed [facility] Meningococcal Polysaccharide (groups A, C, Y and W-135) conjugate vaccine (MCV4P) 2020-09-10 00:00:00 Completed [facility] Meningococcal Polysaccharide (groups A, C, Y and W-135) conjugate vaccine (MCV4P) 2020-09-10 00:00:00 Completed [facility] Meningococcal Polysaccharide (groups A, C, Y and W-135) conjugate vaccine (MCV4P) 2020-09-10 00:00:00 Completed [facility] Meningococcal Polysaccharide (groups A, C, Y and W-135) conjugate vaccine (MCV4P) 2020-09-10 00:00:00 Completed [facility] Meningococcal Polysaccharide (groups A, C, Y and W-135) conjugate vaccine (MCV4P) 2020-09-10 00:00:00 Completed [facility] Meningococcal Polysaccharide (groups A, C, Y and W-135) conjugate vaccine (MCV4P) 2020-09-10 00:00:00 Completed [facility] Meningococcal Polysaccharide (groups A, C, Y and W-135) conjugate vaccine (MCV4P) 2020-09-10 00:00:00 Completed [facility] Meningococcal Polysaccharide (groups A, C, Y and W-135) conjugate vaccine (MCV4P) 2020-09-10 00:00:00 Completed [facility] Meningococcal Polysaccharide (groups A, C, Y and W-135) conjugate vaccine (MCV4P) 2020-09-10 00:00:00 Completed [facility] Meningococcal Polysaccharide (groups A, C, Y and W-135) conjugate vaccine (MCV4P) 2020-09-10 00:00:00 Completed [facility] Meningococcal Polysaccharide (groups A, C, Y and W-135) conjugate vaccine (MCV4P) 2020-09-10 00:00:00 Completed [facility] Meningococcal Polysaccharide (groups A, C, Y and W-135) conjugate vaccine (MCV4P) 2020-09-10 00:00:00 Completed [facility] Meningococcal Polysaccharide (groups A, C, Y and W-135) conjugate vaccine (MCV4P) 2020-09-10 00:00:00 Completed [facility] Meningococcal Polysaccharide (groups A, C, Y and W-135) conjugate vaccine (MCV4P) 2020-09-10 00:00:00 Completed [facility] Meningococcal Polysaccharide (groups A, C, Y and W-135) conjugate vaccine (MCV4P) 2020-09-10 00:00:00 Completed [facility] Meningococcal Polysaccharide (groups A, C, Y and W-135) conjugate vaccine (MCV4P) 2020-09-10 00:00:00 Completed [facility] Meningococcal Polysaccharide (groups A, C, Y and W-135) conjugate vaccine (MCV4P) 2020-09-10 00:00:00 Completed [facility] Meningococcal Polysaccharide (groups A, C, Y and W-135) conjugate vaccine (MCV4P) 2020-09-10 00:00:00 Completed [facility] Meningococcal Polysaccharide (groups A, C, Y and W-135) conjugate vaccine (MCV4P) 2020-09-10 00:00:00 Completed [facility] Meningococcal Polysaccharide (groups A, C, Y and W-135) conjugate vaccine (MCV4P) 2020-09-10 00:00:00 Completed [facility] Meningococcal Polysaccharide (groups A, C, Y and W-135) conjugate vaccine (MCV4P) 2020-09-10 00:00:00 Completed [facility] Meningococcal Polysaccharide (groups A, C, Y and W-135) conjugate vaccine (MCV4P) 2020-09-10 00:00:00 Completed [facility] Meningococcal Polysaccharide (groups A, C, Y and W-135) conjugate vaccine (MCV4P) 2020-09-10 00:00:00 Completed [facility] HPV9 2020-08-21 00:00:00 Completed HPV9 2020-08-21 00:00:00 Completed [facility] HPV9 2020-08-21 00:00:00 Completed [facility] HPV9 2020-08-21 00:00:00 Completed [facility] HPV9 2020-08-21 00:00:00 Completed [facility] HPV9 2020-08-21 00:00:00 Completed [facility] HPV9 2020-08-21 00:00:00 Completed [facility] HPV9 2020-08-21 00:00:00 Completed [facility] HPV9 2020-08-21 00:00:00 Completed [facility] HPV9 2020-08-21 00:00:00 Completed [facility] HPV9 2020-08-21 00:00:00 Completed [facility] HPV9 2020-08-21 00:00:00 Completed [facility] HPV9 2020-08-21 00:00:00 Completed [facility] HPV9 2020-08-21 00:00:00 Completed [facility] HPV9 2020-08-21 00:00:00 Completed [facility] HPV9 2020-08-21 00:00:00 Completed [facility] HPV9 2020-08-21 00:00:00 Completed [facility] HPV9 2020-08-21 00:00:00 Completed [facility] HPV9 2020-08-21 00:00:00 Completed [facility] HPV9 2020-08-21 00:00:00 Completed [facility] HPV9 2020-08-21 00:00:00 Completed [facility] HPV9 2020-08-21 00:00:00 Completed [facility] HPV9 2020-08-21 00:00:00 Completed [facility] HPV9 2020-08-21 00:00:00 Completed [facility] HPV9 2020-08-21 00:00:00 Completed [facility] HPV9 2020-08-21 00:00:00 Completed [facility] HPV9 2020-08-21 00:00:00 Completed [facility] HPV9 2020-08-21 00:00:00 Completed [facility] HPV9 2020-08-21 00:00:00 Completed [facility] HPV9 2020-08-21 00:00:00 Completed [facility] HPV9 2020-08-21 00:00:00 Completed [facility] HPV9 2020-08-21 00:00:00 Completed [facility] HPV9 2020-08-21 00:00:00 Completed [facility] HPV9 2020-08-21 00:00:00 Completed [facility] HPV9 2020-05-21 00:00:00 Completed HPV9 2020-05-21 00:00:00 Completed [facility] HPV9 2020-05-21 00:00:00 Completed [facility] HPV9 2020-05-21 00:00:00 Completed [facility] HPV9 2020-05-21 00:00:00 Completed [facility] HPV9 2020-05-21 00:00:00 Completed [facility] HPV9 2020-05-21 00:00:00 Completed [facility] HPV9 2020-05-21 00:00:00 Completed [facility] HPV9 2020-05-21 00:00:00 Completed [facility] HPV9 2020-05-21 00:00:00 Completed [facility] HPV9 2020-05-21 00:00:00 Completed [facility] HPV9 2020-05-21 00:00:00 Completed [facility] HPV9 2020-05-21 00:00:00 Completed [facility] HPV9 2020-05-21 00:00:00 Completed [facility] HPV9 2020-05-21 00:00:00 Completed [facility] HPV9 2020-05-21 00:00:00 Completed [facility] HPV9 2020-05-21 00:00:00 Completed [facility] HPV9 2020-05-21 00:00:00 Completed [facility] HPV9 2020-05-21 00:00:00 Completed [facility] HPV9 2020-05-21 00:00:00 Completed [facility] HPV9 2020-05-21 00:00:00 Completed [facility] HPV9 2020-05-21 00:00:00 Completed [facility] HPV9 2020-05-21 00:00:00 Completed [facility] HPV9 2020-05-21 00:00:00 Completed [facility] HPV9 2020-05-21 00:00:00 Completed [facility] HPV9 2020-05-21 00:00:00 Completed [facility] HPV9 2020-05-21 00:00:00 Completed [facility] HPV9 2020-05-21 00:00:00 Completed [facility] HPV9 2020-05-21 00:00:00 Completed [facility] HPV9 2020-05-21 00:00:00 Completed [facility] HPV9 2020-05-21 00:00:00 Completed [facility] HPV9 2020-05-21 00:00:00 Completed [facility] HPV9 2020-05-21 00:00:00 Completed [facility] HPV9 2020-05-21 00:00:00 Completed [facility] HPV9 2020-02-20 00:00:00 Completed [facility] HPV9 2020-02-20 00:00:00 Completed [facility] HPV9 2020-02-20 00:00:00 Completed [facility] HPV9 2020-02-20 00:00:00 Completed [facility] HPV9 2020-02-20 00:00:00 Completed [facility] HPV9 2020-02-20 00:00:00 Completed [facility] HPV9 2020-02-20 00:00:00 Completed [facility] HPV9 2020-02-20 00:00:00 Completed [facility] HPV9 2020-02-20 00:00:00 Completed [facility] HPV9 2020-02-20 00:00:00 Completed [facility] HPV9 2020-02-20 00:00:00 Completed [facility] HPV9 2020-02-20 00:00:00 Completed [facility] HPV9 2020-02-20 00:00:00 Completed [facility] HPV9 2020-02-20 00:00:00 Completed [facility] HPV9 2020-02-20 00:00:00 Completed [facility] HPV9 2020-02-20 00:00:00 Completed [facility] HPV9 2020-02-20 00:00:00 Completed [facility] HPV9 2020-02-20 00:00:00 Completed [facility] HPV9 2020-02-20 00:00:00 Completed [facility] HPV9 2020-02-20 00:00:00 Completed [facility] HPV9 2020-02-20 00:00:00 Completed [facility] HPV9 2020-02-20 00:00:00 Completed [facility] HPV9 2020-02-20 00:00:00 Completed [facility] HPV9 2020-02-20 00:00:00 Completed [facility] HPV9 2020-02-20 00:00:00 Completed [facility] HPV9 2020-02-20 00:00:00 Completed [facility] HPV9 2020-02-20 00:00:00 Completed [facility] HPV9 2020-02-20 00:00:00 Completed [facility] HPV9 2020-02-20 00:00:00 Completed [facility] HPV9 2020-02-20 00:00:00 Completed [facility] HPV9 2020-02-20 00:00:00 Completed [facility] HPV9 2020-02-20 00:00:00 Completed [facility] HPV9 2020-02-20 00:00:00 Completed [facility] HPV9 2020-02-20 00:00:00 Completed [facility] Influenza Virus Vaccine Quad .5 mL IM 6+ MO 2019-07-07 00:00:00 Completed [facility] Influenza Virus Vaccine Quad .5 mL IM 6+ MO 2019-07-07 00:00:00 Completed [facility] Influenza Virus Vaccine Quad .5 mL IM 6+ MO 2019-07-07 00:00:00 Completed [facility] Influenza Virus Vaccine Quad .5 mL IM 6+ MO 2019-07-07 00:00:00 Completed [facility] Influenza Virus Vaccine Quad .5 mL IM 6+ MO 2019-07-07 00:00:00 Completed [facility] Influenza Virus Vaccine Quad .5 mL IM 6+ MO 2019-07-07 00:00:00 Completed [facility] Influenza Virus Vaccine Quad .5 mL IM 6+ MO 2019-07-07 00:00:00 Completed [facility] Influenza Virus Vaccine Quad .5 mL IM 6+ MO 2019-07-07 00:00:00 Completed [facility] Influenza Virus Vaccine Quad .5 mL IM 6+ MO 2019-07-07 00:00:00 Completed [facility] Influenza Virus Vaccine Quad .5 mL IM 6+ MO 2019-07-07 00:00:00 Completed [facility] Influenza Virus Vaccine Quad .5 mL IM 6+ MO 2019-07-07 00:00:00 Completed [facility] Influenza Virus Vaccine Quad .5 mL IM 6+ MO 2019-07-07 00:00:00 Completed [facility] Influenza Virus Vaccine Quad .5 mL IM 6+ MO 2019-07-07 00:00:00 Completed [facility] Influenza Virus Vaccine Quad .5 mL IM 6+ MO 2019-07-07 00:00:00 Completed [facility] Influenza Virus Vaccine Quad .5 mL IM 6+ MO 2019-07-07 00:00:00 Completed [facility] Influenza Virus Vaccine Quad .5 mL IM 6+ MO 2019-07-07 00:00:00 Completed [facility] Influenza Virus Vaccine Quad .5 mL IM 6+ MO 2019-07-07 00:00:00 Completed [facility] Influenza Virus Vaccine Quad .5 mL IM 6+ MO 2019-07-07 00:00:00 Completed [facility] Influenza Virus Vaccine Quad .5 mL IM 6+ MO 2019-07-07 00:00:00 Completed [facility] Influenza Virus Vaccine Quad .5 mL IM 6+ MO 2019-07-07 00:00:00 Completed [facility] Influenza Virus Vaccine Quad .5 mL IM 6+ MO 2019-07-07 00:00:00 Completed [facility] Influenza Virus Vaccine Quad .5 mL IM 6+ MO 2019-07-07 00:00:00 Completed [facility] Influenza Virus Vaccine Quad .5 mL IM 6+ MO 2019-07-07 00:00:00 Completed [facility] Influenza Virus Vaccine Quad .5 mL IM 6+ MO 2019-07-07 00:00:00 Completed [facility] Influenza Virus Vaccine Quad .5 mL IM 6+ MO 2019-07-07 00:00:00 Completed [facility] Influenza Virus Vaccine Quad .5 mL IM 6+ MO 2019-07-07 00:00:00 Completed [facility] Influenza Virus Vaccine Quad .5 mL IM 6+ MO 2019-07-07 00:00:00 Completed [facility] Influenza Virus Vaccine Quad .5 mL IM 6+ MO 2019-07-07 00:00:00 Completed [facility] Influenza Virus Vaccine Quad .5 mL IM 6+ MO 2019-07-07 00:00:00 Completed [facility] Influenza Virus Vaccine Quad .5 mL IM 6+ MO 2019-07-07 00:00:00 Completed [facility] Influenza Virus Vaccine Quad .5 mL IM 6+ MO 2019-07-07 00:00:00 Completed [facility] Influenza Virus Vaccine Quad .5 mL IM 6+ MO 2019-07-07 00:00:00 Completed [facility] Influenza Virus Vaccine Quad .5 mL IM 6+ MO (FLUZONE/FLULAVAL/FL UARIX) 2019-07-07 00:00:00 Completed [facility] Influenza Virus Vaccine Quad .5 mL IM 6+ MO (FLUZONE/FLULAVAL/FL UARIX) 2019-07-07 00:00:00 Completed [facility] Meningococcal Polysaccharide (groups A, C, Y and W-135) conjugate vaccine (MCV4P) 2016-10-14 00:00:00 Completed TDAP 2016-10-14 00:00:00 Completed Meningococcal Polysaccharide (groups A, C, Y and W-135) conjugate vaccine (MCV4P) 2016-10-14 00:00:00 Completed [facility] TDAP 2016-10-14 00:00:00 Completed [facility] Meningococcal Polysaccharide (groups A, C, Y and W-135) conjugate vaccine (MCV4P) 2016-10-14 00:00:00 Completed [facility] TDAP 2016-10-14 00:00:00 Completed [facility] Meningococcal Polysaccharide (groups A, C, Y and W-135) conjugate vaccine (MCV4P) 2016-10-14 00:00:00 Completed [facility] TDAP 2016-10-14 00:00:00 Completed [facility] Meningococcal Polysaccharide (groups A, C, Y and W-135) conjugate vaccine (MCV4P) 2016-10-14 00:00:00 Completed [facility] TDAP 2016-10-14 00:00:00 Completed [facility] Meningococcal Polysaccharide (groups A, C, Y and W-135) conjugate vaccine (MCV4P) 2016-10-14 00:00:00 Completed [facility] TDAP 2016-10-14 00:00:00 Completed [facility] Meningococcal Polysaccharide (groups A, C, Y and W-135) conjugate vaccine (MCV4P) 2016-10-14 00:00:00 Completed [facility] TDAP 2016-10-14 00:00:00 Completed [facility] Meningococcal Polysaccharide (groups A, C, Y and W-135) conjugate vaccine (MCV4P) 2016-10-14 00:00:00 Completed [facility] TDAP 2016-10-14 00:00:00 Completed [facility] Meningococcal Polysaccharide (groups A, C, Y and W-135) conjugate vaccine (MCV4P) 2016-10-14 00:00:00 Completed [facility] TDAP 2016-10-14 00:00:00 Completed [facility] Meningococcal Polysaccharide (groups A, C, Y and W-135) conjugate vaccine (MCV4P) 2016-10-14 [facility] Meningococcal Polysaccharide (groups A, C, Y and W-135) conjugate vaccine (MCV4P) 2016-10-14 00:00:00 Completed [facility] TDAP 2016-10-14 00:00:00 Completed [facility] Meningococcal Polysaccharide (groups A, C, Y and W-135) conjugate vaccine (MCV4P) 2016-10-14 00:00:00 Completed [facility] TDAP 2016-10-14 00:00:00 Completed [facility] Meningococcal Polysaccharide (groups A, C, Y and W-135) conjugate vaccine (MCV4P) 2016-10-14 00:00:00 Completed [facility] TDAP 2016-10-14 00:00:00 Completed [facility] Meningococcal Polysaccharide (groups A, C, Y and W-135) conjugate vaccine (MCV4P) 2016-10-14 00:00:00 Completed [facility] TDAP 2016-10-14 00:00:00 Completed [facility] Meningococcal Polysaccharide (groups A, C, Y and W-135) conjugate vaccine (MCV4P) 2016-10-14 00:00:00 Completed [facility] TDAP 2016-10-14 00:00:00 Completed [facility] Meningococcal Polysaccharide (groups A, C, Y and W-135) conjugate vaccine (MCV4P) 2016-10-14 00:00:00 Completed [facility] TDAP 2016-10-14 00:00:00 Completed [facility] Meningococcal Polysaccharide (groups A, C, Y and W-135) conjugate vaccine (MCV4P) 2016-10-14 00:00:00 Completed [facility] TDAP 2016-10-14 00:00:00 Completed [facility] Meningococcal Polysaccharide (groups A, C, Y and W-135) conjugate vaccine (MCV4P) 2016-10-14 00:00:00 Completed [facility] TDAP 2016-10-14 00:00:00 Completed [facility] Meningococcal Polysaccharide (groups A, C, Y and W-135) conjugate vaccine (MCV4P) 2016-10-14 00:00:00 Completed [facility] TDAP 2016-10-14 00:00:00 Completed [facility] Meningococcal Polysaccharide (groups A, C, Y and W-135) conjugate vaccine (MCV4P) 2016-10-14 00:00:00 Completed [facility] TDAP 2016-10-14 00:00:00 Completed [facility] Meningococcal Polysaccharide (groups A, C, Y and W-135) conjugate vaccine (MCV4P) 2016-10-14 00:00:00 Completed [facility] TDAP 2016-10-14 00:00:00 Completed [facility] Meningococcal Polysaccharide (groups A, C, Y and W-135) conjugate vaccine (MCV4P) 2016-10-14 00:00:00 Completed [facility] TDAP 2016-10-14 00:00:00 Completed [facility] Meningococcal Polysaccharide (groups A, C, Y and W-135) conjugate vaccine (MCV4P) 2016-10-14 [facility] Meningococcal Polysaccharide (groups A, C, Y and W-135) conjugate vaccine (MCV4P) 2016-10-14 00:00:00 Completed [facility] TDAP 2016-10-14 00:00:00 Completed [facility] Meningococcal Polysaccharide (groups A, C, Y and W-135) conjugate vaccine (MCV4P) 2016-10-14 00:00:00 Completed [facility] TDAP 2016-10-14 00:00:00 Completed [facility] Meningococcal Polysaccharide (groups A, C, Y and W-135) conjugate vaccine (MCV4P) 2016-10-14 00:00:00 Completed [facility] TDAP 2016-10-14 00:00:00 Completed [facility] Meningococcal Polysaccharide (groups A, C, Y and W-135) conjugate vaccine (MCV4P) 2016-10-14 00:00:00 Completed [facility] TDAP 2016-10-14 00:00:00 Completed [facility] Meningococcal Polysaccharide (groups A, C, Y and W-135) conjugate vaccine (MCV4P) 2016-10-14 00:00:00 Completed [facility] TDAP 2016-10-14 00:00:00 Completed [facility] Meningococcal Polysaccharide (groups A, C, Y and W-135) conjugate vaccine (MCV4P) 2016-10-14 00:00:00 Completed [facility] TDAP 2016-10-14 00:00:00 Completed [facility] Meningococcal Polysaccharide (groups A, C, Y and W-135) conjugate vaccine (MCV4P) 2016-10-14 00:00:00 Completed [facility] TDAP 2016-10-14 00:00:00 Completed [facility] Meningococcal Polysaccharide (groups A, C, Y and W-135) conjugate vaccine (MCV4P) 2016-10-14 00:00:00 Completed [facility] TDAP 2016-10-14 00:00:00 Completed [facility] Meningococcal Polysaccharide (groups A, C, Y and W-135) conjugate vaccine (MCV4P) 2016-10-14 00:00:00 Completed [facility] TDAP 2016-10-14 00:00:00 Completed [facility] Meningococcal Polysaccharide (groups A, C, Y and W-135) conjugate vaccine (MCV4P) 2016-10-14 00:00:00 Completed [facility] TDAP 2016-10-14 00:00:00 Completed [facility] Meningococcal Polysaccharide (groups A, C, Y and W-135) conjugate vaccine (MCV4P) 2016-10-14 00:00:00 Completed [facility] TDAP 2016-10-14 00:00:00 Completed [facility] DTAP 2009-07-09 00:00:00 Completed [facility] DTAP 2009-07-09 00:00:00 Completed [facility] DTAP 2009-07-09 00:00:00 Completed [facility] DTAP 2009-07-09 00:00:00 Completed [facility] DTAP 2009-07-09 00:00:00 Completed [facility] DTAP 2009-07-09 00:00:00 Completed [facility] DTAP 2009-07-09 00:00:00 Completed [facility] DTAP 2009-07-09 00:00:00 Completed [facility] DTAP 2009-07-09 00:00:00 Completed [facility] DTAP 2009-07-09 00:00:00 Completed [facility] DTAP 2009-07-09 00:00:00 Completed [facility] DTAP 2009-07-09 00:00:00 Completed [facility] DTAP 2009-07-09 00:00:00 Completed [facility] DTAP 2009-07-09 00:00:00 Completed [facility] DTAP 2009-07-09 00:00:00 Completed [facility] DTAP 2009-07-09 00:00:00 Completed [facility] DTAP 2009-07-09 00:00:00 Completed [facility] DTAP 2009-07-09 00:00:00 Completed [facility] DTAP 2009-07-09 00:00:00 Completed [facility] DTAP 2009-07-09 00:00:00 Completed [facility] DTAP 2009-07-09 00:00:00 Completed [facility] DTAP 2009-07-09 00:00:00 Completed [facility] DTAP 2009-07-09 00:00:00 Completed [facility] DTAP 2009-07-09 00:00:00 Completed [facility] DTAP 2009-07-09 00:00:00 Completed [facility] DTAP 2009-07-09 00:00:00 Completed [facility] DTAP 2009-07-09 00:00:00 Completed [facility] DTAP 2009-07-09 00:00:00 Completed [facility] DTAP 2009-07-09 00:00:00 Completed [facility] DTAP 2009-07-09 00:00:00 Completed [facility] DTAP 2009-07-09 00:00:00 Completed [facility] DTAP 2009-07-09 00:00:00 Completed [facility] DTAP 2009-07-09 00:00:00 Completed [facility] DTAP 2009-07-09 00:00:00 Completed HEPATITIS A 2008-09-08 00:00:00 Completed MMR 2008-09-08 00:00:00 Completed Polio (IPV/OPV) 2008-09-08 00:00:00 Completed Varicella (varivax)(chicken pox) 2008-09-08 00:00:00 Completed HEPATITIS A 2008-09-08 00:00:00 Completed [facility] MMR 2008-09-08 00:00:00 Completed [facility] Polio (IPV/OPV) 2008-09-08 00:00:00 Completed [facility] Varicella (varivax)(chicken pox) 2008-09-08 00:00:00 Completed [facility] HEPATITIS A 2008-09-08 00:00:00 Completed [facility] MMR 2008-09-08 00:00:00 Completed [facility] Polio (IPV/OPV) 2008-09-08 00:00:00 Completed [facility] Varicella (varivax)(chicken pox) 2008-09-08 00:00:00 Completed [facility] HEPATITIS A 2008-09-08 00:00:00 Completed [facility] MMR 2008-09-08 00:00:00 Completed [facility] Polio (IPV/OPV) 2008-09-08 00:00:00 Completed [facility] Varicella (varivax)(chicken pox) 2008-09-08 00:00:00 Completed [facility] HEPATITIS A 2008-09-08 00:00:00 Completed [facility] MMR 2008-09-08 00:00:00 Completed [facility] Polio (IPV/OPV) 2008-09-08 00:00:00 Completed [facility] Varicella (varivax)(chicken pox) 2008-09-08 00:00:00 Completed [facility] HEPATITIS A 2008-09-08 00:00:00 Completed [facility] MMR 2008-09-08 00:00:00 Completed [facility] Polio (IPV/OPV) 2008-09-08 00:00:00 Completed [facility] Varicella (varivax)(chicken pox) 2008-09-08 00:00:00 Completed [facility] HEPATITIS A 2008-09-08 00:00:00 Completed [facility] MMR 2008-09-08 00:00:00 Completed [facility] Polio (IPV/OPV) 2008-09-08 00:00:00 Completed [facility] Varicella (varivax)(chicken pox) 2008-09-08 00:00:00 Completed [facility] HEPATITIS A 2008-09-08 00:00:00 Completed [facility] MMR 2008-09-08 00:00:00 Completed [facility] Polio (IPV/OPV) 2008-09-08 00:00:00 Completed [facility] Varicella (varivax)(chicken pox) 2008-09-08 00:00:00 Completed [facility] HEPATITIS A 2008-09-08 00:00:00 Completed [facility] MMR 2008-09-08 00:00:00 Completed [facility] Polio (IPV/OPV) 2008-09-08 00:00:00 Completed [facility] Varicella (varivax)(chicken pox) 2008-09-08 00:00:00 Completed [facility] HEPATITIS A 2008-09-08 00:00:00 Completed [facility] MMR 2008-09-08 00:00:00 Completed [facility] Polio (IPV/OPV) 2008-09-08 00:00:00 Completed [facility] Varicella (varivax)(chicken pox) 2008-09-08 00:00:00 Completed [facility] HEPATITIS A 2008-09-08 00:00:00 Completed [facility] MMR 2008-09-08 00:00:00 Completed [facility] Polio (IPV/OPV) 2008-09-08 00:00:00 Completed [facility] Varicella (varivax)(chicken pox) 2008-09-08 00:00:00 Completed [facility] HEPATITIS A 2008-09-08 00:00:00 Completed [facility] MMR 2008-09-08 00:00:00 Completed [facility] Polio (IPV/OPV) 2008-09-08 00:00:00 Completed [facility] Varicella (varivax)(chicken pox) 2008-09-08 00:00:00 Completed [facility] HEPATITIS A 2008-09-08 00:00:00 Completed [facility] MMR 2008-09-08 00:00:00 Completed [facility] Polio (IPV/OPV) 2008-09-08 00:00:00 Completed [facility] Varicella (varivax)(chicken pox) 2008-09-08 00:00:00 Completed [facility] HEPATITIS A 2008-09-08 00:00:00 Completed [facility] MMR 2008-09-08 00:00:00 Completed [facility] Polio (IPV/OPV) 2008-09-08 00:00:00 Completed [facility] Varicella (varivax)(chicken pox) 2008-09-08 00:00:00 Completed [facility] HEPATITIS A 2008-09-08 00:00:00 Completed [facility] MMR 2008-09-08 00:00:00 Completed [facility] Polio (IPV/OPV) 2008-09-08 00:00:00 Completed [facility] Varicella (varivax)(chicken pox) 2008-09-08 00:00:00 Completed [facility] HEPATITIS A 2008-09-08 00:00:00 Completed [facility] MMR 2008-09-08 00:00:00 Completed [facility] Polio (IPV/OPV) 2008-09-08 00:00:00 Completed [facility] Varicella (varivax)(chicken pox) 2008-09-08 00:00:00 Completed [facility] HEPATITIS A 2008-09-08 00:00:00 Completed [facility] MMR 2008-09-08 00:00:00 Completed [facility] Polio (IPV/OPV) 2008-09-08 00:00:00 Completed [facility] Varicella (varivax)(chicken pox) 2008-09-08 00:00:00 Completed [facility] HEPATITIS A 2008-09-08 00:00:00 Completed [facility] MMR 2008-09-08 00:00:00 Completed [facility] Polio (IPV/OPV) 2008-09-08 00:00:00 Completed [facility] Varicella (varivax)(chicken pox) 2008-09-08 00:00:00 Completed [facility] HEPATITIS A 2008-09-08 00:00:00 Completed [facility] MMR 2008-09-08 00:00:00 Completed [facility] Polio (IPV/OPV) 2008-09-08 00:00:00 Completed [facility] Varicella (varivax)(chicken pox) 2008-09-08 00:00:00 Completed [facility] HEPATITIS A 2008-09-08 00:00:00 Completed [facility] MMR 2008-09-08 00:00:00 Completed [facility] Polio (IPV/OPV) 2008-09-08 00:00:00 Completed [facility] Varicella (varivax)(chicken pox) 2008-09-08 00:00:00 Completed [facility] HEPATITIS A 2008-09-08 00:00:00 Completed [facility] MMR 2008-09-08 00:00:00 Completed [facility] Polio (IPV/OPV) 2008-09-08 00:00:00 Completed [facility] Varicella (varivax)(chicken pox) 2008-09-08 00:00:00 Completed [facility] HEPATITIS A 2008-09-08 00:00:00 Completed [facility] MMR 2008-09-08 00:00:00 Completed [facility] Polio (IPV/OPV) 2008-09-08 00:00:00 Completed [facility] Varicella (varivax)(chicken pox) 2008-09-08 00:00:00 Completed [facility] HEPATITIS A 2008-09-08 00:00:00 Completed [facility] MMR 2008-09-08 00:00:00 Completed [facility] Polio (IPV/OPV) 2008-09-08 00:00:00 Completed [facility] Varicella (varivax)(chicken pox) 2008-09-08 00:00:00 Completed [facility] HEPATITIS A 2008-09-08 00:00:00 Completed [facility] MMR 2008-09-08 00:00:00 Completed [facility] Polio (IPV/OPV) 2008-09-08 00:00:00 Completed [facility] Varicella (varivax)(chicken pox) 2008-09-08 00:00:00 Completed [facility] HEPATITIS A 2008-09-08 00:00:00 Completed [facility] MMR 2008-09-08 00:00:00 Completed [facility] Polio (IPV/OPV) 2008-09-08 00:00:00 Completed [facility] Varicella (varivax)(chicken pox) 2008-09-08 00:00:00 Completed [facility] HEPATITIS A 2008-09-08 00:00:00 Completed [facility] MMR 2008-09-08 00:00:00 Completed [facility] Polio (IPV/OPV) 2008-09-08 00:00:00 Completed [facility] Varicella (varivax)(chicken pox) 2008-09-08 00:00:00 Completed [facility] HEPATITIS A 2008-09-08 00:00:00 Completed [facility] MMR 2008-09-08 00:00:00 Completed [facility] Polio (IPV/OPV) 2008-09-08 00:00:00 Completed [facility] Varicella (varivax)(chicken pox) 2008-09-08 00:00:00 Completed [facility] HEPATITIS A 2008-09-08 00:00:00 Completed [facility] MMR 2008-09-08 00:00:00 Completed [facility] Polio (IPV/OPV) 2008-09-08 00:00:00 Completed [facility] Varicella (varivax)(chicken pox) 2008-09-08 00:00:00 Completed [facility] HEPATITIS A 2008-09-08 00:00:00 Completed [facility] MMR 2008-09-08 00:00:00 Completed [facility] Polio (IPV/OPV) 2008-09-08 00:00:00 Completed [facility] Varicella (varivax)(chicken pox) 2008-09-08 00:00:00 Completed [facility] HEPATITIS A 2008-09-08 00:00:00 Completed [facility] MMR 2008-09-08 00:00:00 Completed [facility] Polio (IPV/OPV) 2008-09-08 00:00:00 Completed [facility] Varicella (varivax)(chicken pox) 2008-09-08 00:00:00 Completed [facility] HEPATITIS A 2008-09-08 00:00:00 Completed [facility] MMR 2008-09-08 00:00:00 Completed [facility] Polio (IPV/OPV) 2008-09-08 00:00:00 Completed [facility] Varicella (varivax)(chicken pox) 2008-09-08 00:00:00 Completed [facility] HEPATITIS A 2008-09-08 00:00:00 Completed [facility] MMR 2008-09-08 00:00:00 Completed [facility] Polio (IPV/OPV) 2008-09-08 00:00:00 Completed [facility] Varicella (varivax)(chicken pox) 2008-09-08 00:00:00 Completed [facility] HEPATITIS A 2008-09-08 00:00:00 Completed [facility] MMR 2008-09-08 00:00:00 Completed [facility] Polio (IPV/OPV) 2008-09-08 00:00:00 Completed [facility] Varicella (varivax)(chicken pox) 2008-09-08 00:00:00 Completed [facility] HEPATITIS A 2008-09-08 00:00:00 Completed [facility] MMR 2008-09-08 00:00:00 Completed [facility] Polio (IPV/OPV) 2008-09-08 00:00:00 Completed [facility] Varicella (varivax)(chicken pox) 2008-09-08 00:00:00 Completed [facility] HIB 4 Dose Schedule 2006-07-01 00:00:00 Completed HEPATITIS A 2006-07-01 00:00:00 Completed DTAP 2006-07-01 00:00:00 Completed [facility] HIB 4 Dose Schedule 2006-07-01 00:00:00 Completed [facility] HEPATITIS A 2006-07-01 00:00:00 Completed [facility] DTAP 2006-07-01 00:00:00 Completed [facility] HIB 4 Dose Schedule 2006-07-01 00:00:00 Completed [facility] HEPATITIS A 2006-07-01 00:00:00 Completed [facility] DTAP 2006-07-01 00:00:00 Completed [facility] HIB 4 Dose Schedule 2006-07-01 00:00:00 Completed [facility] HEPATITIS A 2006-07-01 00:00:00 Completed [facility] DTAP 2006-07-01 00:00:00 Completed [facility] HIB 4 Dose Schedule 2006-07-01 00:00:00 Completed [facility] HEPATITIS A 2006-07-01 00:00:00 Completed [facility] DTAP 2006-07-01 00:00:00 Completed [facility] HIB 4 Dose Schedule 2006-07-01 00:00:00 Completed [facility] HEPATITIS A 2006-07-01 00:00:00 Completed [facility] DTAP 2006-07-01 00:00:00 Completed [facility] HIB 4 Dose Schedule 2006-07-01 00:00:00 Completed [facility] HEPATITIS A 2006-07-01 00:00:00 Completed [facility] DTAP 2006-07-01 00:00:00 Completed [facility] HIB 4 Dose Schedule 2006-07-01 00:00:00 Completed [facility] HEPATITIS A 2006-07-01 00:00:00 Completed [facility] DTAP 2006-07-01 00:00:00 Completed [facility] HIB 4 Dose Schedule 2006-07-01 00:00:00 Completed [facility] HEPATITIS A 2006-07-01 00:00:00 Completed [facility] DTAP 2006-07-01 00:00:00 Completed [facility] HIB 4 Dose Schedule 2006-07-01 00:00:00 Completed [facility] HEPATITIS A 2006-07-01 00:00:00 Completed [facility] DTAP 2006-07-01 00:00:00 Completed [facility] HIB 4 Dose Schedule 2006-07-01 00:00:00 Completed [facility] HEPATITIS A 2006-07-01 00:00:00 Completed [facility] DTAP 2006-07-01 00:00:00 Completed [facility] HIB 4 Dose Schedule 2006-07-01 00:00:00 Completed [facility] HEPATITIS A 2006-07-01 00:00:00 Completed [facility] DTAP 2006-07-01 00:00:00 Completed [facility] HIB 4 Dose Schedule 2006-07-01 00:00:00 Completed [facility] HEPATITIS A 2006-07-01 00:00:00 Completed [facility] DTAP 2006-07-01 00:00:00 Completed [facility] HIB 4 Dose Schedule 2006-07-01 00:00:00 Completed [facility] HEPATITIS A 2006-07-01 00:00:00 Completed [facility] DTAP 2006-07-01 00:00:00 Completed [facility] HIB 4 Dose Schedule 2006-07-01 00:00:00 Completed [facility] HEPATITIS A 2006-07-01 00:00:00 Completed [facility] DTAP 2006-07-01 00:00:00 Completed [facility] HIB 4 Dose Schedule 2006-07-01 00:00:00 Completed [facility] HEPATITIS A 2006-07-01 00:00:00 Completed [facility] DTAP 2006-07-01 00:00:00 Completed [facility] HIB 4 Dose Schedule 2006-07-01 00:00:00 Completed [facility] HEPATITIS A 2006-07-01 00:00:00 Completed [facility] DTAP 2006-07-01 00:00:00 Completed [facility] HIB 4 Dose Schedule 2006-07-01 00:00:00 Completed [facility] HEPATITIS A 2006-07-01 00:00:00 Completed [facility] DTAP 2006-07-01 00:00:00 Completed [facility] HIB 4 Dose Schedule 2006-07-01 00:00:00 Completed [facility] HEPATITIS A 2006-07-01 00:00:00 Completed [facility] DTAP 2006-07-01 00:00:00 Completed [facility] HIB 4 Dose Schedule 2006-07-01 00:00:00 Completed [facility] HEPATITIS A 2006-07-01 00:00:00 Completed [facility] DTAP 2006-07-01 00:00:00 Completed [facility] HIB 4 Dose Schedule 2006-07-01 00:00:00 Completed [facility] HEPATITIS A 2006-07-01 00:00:00 Completed [facility] DTAP 2006-07-01 00:00:00 Completed [facility] HIB 4 Dose Schedule 2006-07-01 00:00:00 Completed [facility] HEPATITIS A 2006-07-01 00:00:00 Completed [facility] DTAP 2006-07-01 00:00:00 Completed [facility] HIB 4 Dose Schedule 2006-07-01 00:00:00 Completed [facility] HEPATITIS A 2006-07-01 00:00:00 Completed [facility] DTAP 2006-07-01 00:00:00 Completed [facility] HIB 4 Dose Schedule 2006-07-01 00:00:00 Completed [facility] HEPATITIS A 2006-07-01 00:00:00 Completed [facility] DTAP 2006-07-01 00:00:00 Completed [facility] HIB 4 Dose Schedule 2006-07-01 00:00:00 Completed [facility] HEPATITIS A 2006-07-01 00:00:00 Completed [facility] DTAP 2006-07-01 00:00:00 Completed [facility] HIB 4 Dose Schedule 2006-07-01 00:00:00 Completed [facility] HEPATITIS A 2006-07-01 00:00:00 Completed [facility] DTAP 2006-07-01 00:00:00 Completed [facility] HIB 4 Dose Schedule 2006-07-01 00:00:00 Completed [facility] HEPATITIS A 2006-07-01 00:00:00 Completed [facility] DTAP 2006-07-01 00:00:00 Completed [facility] HIB 4 Dose Schedule 2006-07-01 00:00:00 Completed [facility] HEPATITIS A 2006-07-01 00:00:00 Completed [facility] DTAP 2006-07-01 00:00:00 Completed [facility] HIB 4 Dose Schedule 2006-07-01 00:00:00 Completed [facility] HEPATITIS A 2006-07-01 00:00:00 Completed [facility] DTAP 2006-07-01 00:00:00 Completed [facility] HIB 4 Dose Schedule 2006-07-01 00:00:00 Completed [facility] HEPATITIS A 2006-07-01 00:00:00 Completed [facility] DTAP 2006-07-01 00:00:00 Completed [facility] HIB 4 Dose Schedule 2006-07-01 00:00:00 Completed [facility] HEPATITIS A 2006-07-01 00:00:00 Completed [facility] DTAP 2006-07-01 00:00:00 Completed [facility] HIB 4 Dose Schedule 2006-07-01 00:00:00 Completed [facility] HEPATITIS A 2006-07-01 00:00:00 Completed [facility] DTAP 2006-07-01 00:00:00 Completed [facility] HIB 4 Dose Schedule 2006-07-01 00:00:00 Completed [facility] HEPATITIS A 2006-07-01 00:00:00 Completed [facility] DTAP 2006-07-01 00:00:00 Completed [facility] HIB 4 Dose Schedule 2006-07-01 00:00:00 Completed [facility] HEPATITIS A 2006-07-01 00:00:00 Completed [facility] DTAP 2006-07-01 00:00:00 Completed MMR 2005-11-19 00:00:00 Completed Pneumococcal 13 Conjugate, PCV13 (Prevnar 13) 2005-11-19 00:00:00 Completed MMR 2005-11-19 00:00:00 Completed [facility] Pneumococcal 13 Conjugate, PCV13 (Prevnar 13) 2005-11-19 00:00:00 Completed [facility] MMR 2005-11-19 00:00:00 Completed [facility] Pneumococcal 13 Conjugate, PCV13 (Prevnar 13) 2005-11-19 00:00:00 Completed [facility] MMR 2005-11-19 00:00:00 Completed [facility] Pneumococcal 13 Conjugate, PCV13 (Prevnar 13) 2005-11-19 00:00:00 Completed [facility] MMR 2005-11-19 00:00:00 Completed [facility] Pneumococcal 13 Conjugate, PCV13 (Prevnar 13) 2005-11-19 00:00:00 Completed [facility] MMR 2005-11-19 00:00:00 Completed [facility] Pneumococcal 13 Conjugate, PCV13 (Prevnar 13) 2005-11-19 00:00:00 Completed [facility] MMR 2005-11-19 00:00:00 Completed [facility] Pneumococcal 13 Conjugate, PCV13 (Prevnar 13) 2005-11-19 00:00:00 Completed [facility] 2005-11-19 00:00:00 Completed [facility] Pneumococcal 13 Conjugate, PCV13 (Prevnar 13) 2005-11-19 00:00:00 Completed [facility] 2005-11-19 00:00:00 Completed [facility] Pneumococcal 13 Conjugate, PCV13 (Prevnar 13) 2005-11-19 00:00:00 Completed [facility] 2005-11-19 00:00:00 Completed [facility] Pneumococcal 13 Conjugate, PCV13 (Prevnar 13) 2005-11-19 00:00:00 Completed [facility] 2005-11-19 00:00:00 Completed [facility] Pneumococcal 13 Conjugate, PCV13 (Prevnar 13) 2005-11-19 00:00:00 Completed [facility] 2005-11-19 00:00:00 Completed [facility] Pneumococcal 13 Conjugate, PCV13 (Prevnar 13) 2005-11-19 00:00:00 Completed [facility] 2005-11-19 00:00:00 Completed [facility] Pneumococcal 13 Conjugate, PCV13 (Prevnar 13) 2005-11-19 00:00:00 Completed [facility] 2005-11-19 00:00:00 Completed [facility] Pneumococcal 13 Conjugate, PCV13 (Prevnar 13) 2005-11-19 00:00:00 Completed [facility] 2005-11-19 00:00:00 Completed [facility] Pneumococcal 13 Conjugate, PCV13 (Prevnar 13) 2005-11-19 00:00:00 Completed [facility] 2005-11-19 00:00:00 Completed [facility] Pneumococcal 13 Conjugate, PCV13 (Prevnar 13) 2005-11-19 00:00:00 Completed [facility] 2005-11-19 00:00:00 Completed [facility] Pneumococcal 13 Conjugate, PCV13 (Prevnar 13) 2005-11-19 00:00:00 Completed [facility] 2005-11-19 00:00:00 Completed [facility] Pneumococcal 13 Conjugate, PCV13 (Prevnar 13) 2005-11-19 00:00:00 Completed [facility] 2005-11-19 00:00:00 Completed [facility] Pneumococcal 13 Conjugate, PCV13 (Prevnar 13) 2005-11-19 00:00:00 Completed [facility] 2005-11-19 00:00:00 Completed [facility] Pneumococcal 13 Conjugate, PCV13 (Prevnar 13) 2005-11-19 00:00:00 Completed [facility] 2005-11-19 00:00:00 Completed [facility] Pneumococcal 13 Conjugate, PCV13 (Prevnar 13) 2005-11-19 00:00:00 Completed [facility] 2005-11-19 00:00:00 Completed [facility] Pneumococcal 13 Conjugate, PCV13 (Prevnar 13) 2005-11-19 00:00:00 Completed [facility] 2005-11-19 00:00:00 Completed [facility] Pneumococcal 13 Conjugate, PCV13 (Prevnar 13) 2005-11-19 00:00:00 Completed [facility] 2005-11-19 00:00:00 Completed [facility] Pneumococcal 13 Conjugate, PCV13 (Prevnar 13) 2005-11-19 00:00:00 Completed [facility] 2005-11-19 00:00:00 Completed [facility] Pneumococcal 13 Conjugate, PCV13 (Prevnar 13) 2005-11-19 00:00:00 Completed [facility] 2005-11-19 00:00:00 Completed [facility] Pneumococcal 13 Conjugate, PCV13 (Prevnar 13) 2005-11-19 00:00:00 Completed [facility] 2005-11-19 00:00:00 Completed [facility] Pneumococcal 13 Conjugate, PCV13 (Prevnar 13) 2005-11-19 00:00:00 Completed [facility] 2005-11-19 00:00:00 Completed [facility] Pneumococcal 13 Conjugate, PCV13 (Prevnar 13) 2005-11-19 00:00:00 Completed [facility] 2005-11-19 00:00:00 Completed [facility] Pneumococcal 13 Conjugate, PCV13 (Prevnar 13) 2005-11-19 00:00:00 Completed [facility] 2005-11-19 00:00:00 Completed [facility] Pneumococcal 13 Conjugate, PCV13 (Prevnar 13) 2005-11-19 00:00:00 Completed [facility] MMR 2005-11-19 00:00:00 Completed [facility] Pneumococcal 13 Conjugate, PCV13 (Prevnar 13) 2005-11-19 00:00:00 Completed [facility] MMR 2005-11-19 00:00:00 Completed [facility] Pneumococcal 13 Conjugate, PCV13 (Prevnar 13) 2005-11-19 00:00:00 Completed [facility] MMR 2005-11-19 00:00:00 Completed [facility] Pneumococcal 13 Conjugate, PCV13 (Prevnar 13) 2005-11-19 00:00:00 Completed [facility] MMR 2005-11-19 00:00:00 Completed [facility] Pneumococcal 13 Conjugate, PCV13 (Prevnar 13) 2005-11-19 00:00:00 Completed [facility] Varicella (varivax)(chicken pox) 2005-08-20 00:00:00 Completed Varicella (varivax)(chicken pox) 2005-08-20 00:00:00 Completed [facility] Varicella (varivax)(chicken pox) 2005-08-20 00:00:00 Completed [facility] Varicella (varivax)(chicken pox) 2005-08-20 00:00:00 Completed [facility] Varicella (varivax)(chicken pox) 2005-08-20 00:00:00 Completed [facility] Varicella (varivax)(chicken pox) 2005-08-20 00:00:00 Completed [facility] Varicella (varivax)(chicken pox) 2005-08-20 00:00:00 Completed [facility] Varicella (varivax)(chicken pox) 2005-08-20 00:00:00 Completed [facility] Varicella (varivax)(chicken pox) 2005-08-20 00:00:00 Completed [facility] Varicella (varivax)(chicken pox) 2005-08-20 00:00:00 Completed [facility] Varicella (varivax)(chicken pox) 2005-08-20 00:00:00 Completed [facility] Varicella (varivax)(chicken pox) 2005-08-20 00:00:00 Completed [facility] Varicella (varivax)(chicken pox) 2005-08-20 00:00:00 Completed [facility] Varicella (varivax)(chicken pox) 2005-08-20 00:00:00 Completed [facility] Varicella (varivax)(chicken pox) 2005-08-20 00:00:00 Completed [facility] Varicella (varivax)(chicken pox) 2005-08-20 00:00:00 Completed [facility] Varicella (varivax)(chicken pox) 2005-08-20 00:00:00 Completed [facility] Varicella (varivax)(chicken pox) 2005-08-20 00:00:00 Completed [facility] Varicella (varivax)(chicken pox) 2005-08-20 00:00:00 Completed [facility] Varicella (varivax)(chicken pox) 2005-08-20 00:00:00 Completed [facility] Varicella (varivax)(chicken pox) 2005-08-20 00:00:00 Completed [facility] Varicella (varivax)(chicken pox) 2005-08-20 00:00:00 Completed [facility] Varicella (varivax)(chicken pox) 2005-08-20 00:00:00 Completed [facility] Varicella (varivax)(chicken pox) 2005-08-20 00:00:00 Completed [facility] Varicella (varivax)(chicken pox) 2005-08-20 00:00:00 Completed [facility] Varicella (varivax)(chicken pox) 2005-08-20 00:00:00 Completed [facility] Varicella (varivax)(chicken pox) 2005-08-20 00:00:00 Completed [facility] Varicella (varivax)(chicken pox) 2005-08-20 00:00:00 Completed [facility] Varicella (varivax)(chicken pox) 2005-08-20 00:00:00 Completed [facility] Varicella (varivax)(chicken pox) 2005-08-20 00:00:00 Completed [facility] Varicella (varivax)(chicken pox) 2005-08-20 00:00:00 Completed [facility] Varicella (varivax)(chicken pox) 2005-08-20 00:00:00 Completed [facility] Varicella (varivax)(chicken pox) 2005-08-20 00:00:00 Completed [facility] Varicella (varivax)(chicken pox) 2005-08-20 00:00:00 Completed [facility] HIB 4 Dose Schedule 2005-02-27 00:00:00 Completed Hep B, Adol or Pedi Dosage 2005-02-27 00:00:00 Completed Pneumococcal 13 Conjugate, PCV13 (Prevnar 13) 2005-02-27 00:00:00 Completed Polio (IPV/OPV) 2005-02-27 00:00:00 Completed DTAP 2005-02-27 00:00:00 Completed [facility] HIB 4 Dose Schedule 2005-02-27 00:00:00 Completed [facility] Hep B, Adol or Pedi Dosage 2005-02-27 00:00:00 Completed [facility] Pneumococcal 13 Conjugate, PCV13 (Prevnar 13) 2005-02-27 00:00:00 Completed [facility] Polio (IPV/OPV) 2005-02-27 00:00:00 Completed [facility] DTAP 2005-02-27 00:00:00 Completed [facility] HIB 4 Dose Schedule 2005-02-27 00:00:00 Completed [facility] Hep B, Adol or Pedi Dosage 2005-02-27 00:00:00 Completed [facility] Pneumococcal 13 Conjugate, PCV13 (Prevnar 13) 2005-02-27 00:00:00 Completed [facility] Polio (IPV/OPV) 2005-02-27 00:00:00 Completed [facility] DTAP 2005-02-27 00:00:00 Completed [facility] HIB 4 Dose Schedule 2005-02-27 00:00:00 Completed [facility] Hep B, Adol or Pedi Dosage 2005-02-27 00:00:00 Completed [facility] Pneumococcal 13 Conjugate, PCV13 (Prevnar 13) 2005-02-27 00:00:00 Completed [facility] Polio (IPV/OPV) 2005-02-27 00:00:00 Completed [facility] DTAP 2005-02-27 00:00:00 Completed [facility] HIB 4 Dose Schedule 2005-02-27 00:00:00 Completed [facility] Hep B, Adol or Pedi Dosage 2005-02-27 00:00:00 Completed [facility] Pneumococcal 13 Conjugate, PCV13 (Prevnar 13) 2005-02-27 00:00:00 Completed [facility] Polio (IPV/OPV) 2005-02-27 00:00:00 Completed [facility] DTAP 2005-02-27 00:00:00 Completed [facility] HIB 4 Dose Schedule 2005-02-27 00:00:00 Completed [facility] Hep B, Adol or Pedi Dosage 2005-02-27 00:00:00 Completed [facility] Pneumococcal 13 Conjugate, PCV13 (Prevnar 13) 2005-02-27 00:00:00 Completed [facility] Polio (IPV/OPV) 2005-02-27 00:00:00 Completed [facility] DTAP 2005-02-27 00:00:00 Completed [facility] HIB 4 Dose Schedule 2005-02-27 00:00:00 Completed [facility] Hep B, Adol or Pedi Dosage 2005-02-27 00:00:00 Completed [facility] Pneumococcal 13 Conjugate, PCV13 (Prevnar 13) 2005-02-27 00:00:00 Completed [facility] Polio (IPV/OPV) 2005-02-27 00:00:00 Completed [facility] DTAP 2005-02-27 00:00:00 Completed [facility] HIB 4 Dose Schedule 2005-02-27 00:00:00 Completed [facility] Hep B, Adol or Pedi Dosage 2005-02-27 00:00:00 Completed [facility] Pneumococcal 13 Conjugate, PCV13 (Prevnar 13) 2005-02-27 00:00:00 Completed [facility] Polio (IPV/OPV) 2005-02-27 00:00:00 Completed [facility] DTAP 2005-02-27 00:00:00 Completed [facility] HIB 4 Dose Schedule 2005-02-27 00:00:00 Completed [facility] Hep B, Adol or Pedi Dosage 2005-02-27 00:00:00 Completed [facility] Pneumococcal 13 Conjugate, PCV13 (Prevnar 13) 2005-02-27 00:00:00 Completed [facility] Polio (IPV/OPV) 2005-02-27 00:00:00 Completed [facility] DTAP 2005-02-27 00:00:00 Completed [facility] HIB 4 Dose Schedule 2005-02-27 00:00:00 Completed [facility] Hep B, Adol or Pedi Dosage 2005-02-27 00:00:00 Completed [facility] Pneumococcal 13 Conjugate, PCV13 (Prevnar 13) 2005-02-27 00:00:00 Completed [facility] Polio (IPV/OPV) 2005-02-27 00:00:00 Completed [facility] DTAP 2005-02-27 00:00:00 Completed [facility] HIB 4 Dose Schedule 2005-02-27 00:00:00 Completed [facility] Hep B, Adol or Pedi Dosage 2005-02-27 00:00:00 Completed [facility] Pneumococcal 13 Conjugate, PCV13 (Prevnar 13) 2005-02-27 00:00:00 Completed [facility] Polio (IPV/OPV) 2005-02-27 00:00:00 Completed [facility] DTAP 2005-02-27 00:00:00 Completed [facility] HIB 4 Dose Schedule 2005-02-27 00:00:00 Completed [facility] Hep B, Adol or Pedi Dosage 2005-02-27 00:00:00 Completed [facility] Pneumococcal 13 Conjugate, PCV13 (Prevnar 13) 2005-02-27 00:00:00 Completed [facility] Polio (IPV/OPV) 2005-02-27 00:00:00 Completed [facility] DTAP 2005-02-27 00:00:00 Completed [facility] HIB 4 Dose Schedule 2005-02-27 00:00:00 Completed [facility] Hep B, Adol or Pedi Dosage 2005-02-27 00:00:00 Completed [facility] Pneumococcal 13 Conjugate, PCV13 (Prevnar 13) 2005-02-27 00:00:00 Completed [facility] Polio (IPV/OPV) 2005-02-27 00:00:00 Completed [facility] DTAP 2005-02-27 00:00:00 Completed [facility] HIB 4 Dose Schedule 2005-02-27 00:00:00 Completed [facility] Hep B, Adol or Pedi Dosage 2005-02-27 00:00:00 Completed [facility] Pneumococcal 13 Conjugate, PCV13 (Prevnar 13) 2005-02-27 00:00:00 Completed [facility] Polio (IPV/OPV) 2005-02-27 00:00:00 Completed [facility] DTAP 2005-02-27 00:00:00 Completed [facility] HIB 4 Dose Schedule 2005-02-27 00:00:00 Completed [facility] Hep B, Adol or Pedi Dosage 2005-02-27 00:00:00 Completed [facility] Pneumococcal 13 Conjugate, PCV13 (Prevnar 13) 2005-02-27 00:00:00 Completed [facility] Polio (IPV/OPV) 2005-02-27 00:00:00 Completed [facility] DTAP 2005-02-27 00:00:00 Completed [facility] HIB 4 Dose Schedule 2005-02-27 00:00:00 Completed [facility] Hep B, Adol or Pedi Dosage 2005-02-27 00:00:00 Completed [facility] Pneumococcal 13 Conjugate, PCV13 (Prevnar 13) 2005-02-27 00:00:00 Completed [facility] Polio (IPV/OPV) 2005-02-27 00:00:00 Completed [facility] DTAP 2005-02-27 00:00:00 Completed [facility] HIB 4 Dose Schedule 2005-02-27 00:00:00 Completed [facility] Hep B, Adol or Pedi Dosage 2005-02-27 00:00:00 Completed [facility] Pneumococcal 13 Conjugate, PCV13 (Prevnar 13) 2005-02-27 00:00:00 Completed [facility] Polio (IPV/OPV) 2005-02-27 00:00:00 Completed [facility] DTAP 2005-02-27 00:00:00 Completed [facility] HIB 4 Dose Schedule 2005-02-27 00:00:00 Completed [facility] Hep B, Adol or Pedi Dosage 2005-02-27 00:00:00 Completed [facility] Pneumococcal 13 Conjugate, PCV13 (Prevnar 13) 2005-02-27 00:00:00 Completed [facility] Polio (IPV/OPV) 2005-02-27 00:00:00 Completed [facility] DTAP 2005-02-27 00:00:00 Completed [facility] HIB 4 Dose Schedule 2005-02-27 00:00:00 Completed [facility] Hep B, Adol or Pedi Dosage 2005-02-27 00:00:00 Completed [facility] Pneumococcal 13 Conjugate, PCV13 (Prevnar 13) 2005-02-27 00:00:00 Completed [facility] Polio (IPV/OPV) 2005-02-27 00:00:00 Completed [facility] DTAP 2005-02-27 00:00:00 Completed [facility] HIB 4 Dose Schedule 2005-02-27 00:00:00 Completed [facility] Hep B, Adol or Pedi Dosage 2005-02-27 00:00:00 Completed [facility] Pneumococcal 13 Conjugate, PCV13 (Prevnar 13) 2005-02-27 00:00:00 Completed [facility] Polio (IPV/OPV) 2005-02-27 00:00:00 Completed [facility] DTAP 2005-02-27 00:00:00 Completed [facility] HIB 4 Dose Schedule 2005-02-27 00:00:00 Completed [facility] Hep B, Adol or Pedi Dosage 2005-02-27 00:00:00 Completed [facility] Pneumococcal 13 Conjugate, PCV13 (Prevnar 13) 2005-02-27 00:00:00 Completed [facility] Polio (IPV/OPV) 2005-02-27 00:00:00 Completed [facility] DTAP 2005-02-27 00:00:00 Completed [facility] HIB 4 Dose Schedule 2005-02-27 00:00:00 Completed [facility] Hep B, Adol or Pedi Dosage 2005-02-27 00:00:00 Completed [facility] Pneumococcal 13 Conjugate, PCV13 (Prevnar 13) 2005-02-27 00:00:00 Completed [facility] Polio (IPV/OPV) 2005-02-27 00:00:00 Completed [facility] DTAP 2005-02-27 00:00:00 Completed [facility] HIB 4 Dose Schedule 2005-02-27 00:00:00 Completed [facility] Hep B, Adol or Pedi Dosage 2005-02-27 00:00:00 Completed [facility] Pneumococcal 13 Conjugate, PCV13 (Prevnar 13) 2005-02-27 00:00:00 Completed [facility] Polio (IPV/OPV) 2005-02-27 00:00:00 Completed [facility] DTAP 2005-02-27 00:00:00 Completed [facility] HIB 4 Dose Schedule 2005-02-27 00:00:00 Completed [facility] Hep B, Adol or Pedi Dosage 2005-02-27 00:00:00 Completed [facility] Pneumococcal 13 Conjugate, PCV13 (Prevnar 13) 2005-02-27 00:00:00 Completed [facility] Polio (IPV/OPV) 2005-02-27 00:00:00 Completed [facility] DTAP 2005-02-27 00:00:00 Completed [facility] HIB 4 Dose Schedule 2005-02-27 00:00:00 Completed [facility] Hep B, Adol or Pedi Dosage 2005-02-27 00:00:00 Completed [facility] Pneumococcal 13 Conjugate, PCV13 (Prevnar 13) 2005-02-27 00:00:00 Completed [facility] Polio (IPV/OPV) 2005-02-27 00:00:00 Completed [facility] DTAP 2005-02-27 00:00:00 Completed [facility] HIB 4 Dose Schedule 2005-02-27 00:00:00 Completed [facility] Hep B, Adol or Pedi Dosage 2005-02-27 00:00:00 Completed [facility] Pneumococcal 13 Conjugate, PCV13 (Prevnar 13) 2005-02-27 00:00:00 Completed [facility] Polio (IPV/OPV) 2005-02-27 00:00:00 Completed [facility] DTAP 2005-02-27 00:00:00 Completed [facility] HIB 4 Dose Schedule 2005-02-27 00:00:00 Completed [facility] Hep B, Adol or Pedi Dosage 2005-02-27 00:00:00 Completed [facility] Pneumococcal 13 Conjugate, PCV13 (Prevnar 13) 2005-02-27 00:00:00 Completed [facility] Polio (IPV/OPV) 2005-02-27 00:00:00 Completed [facility] DTAP 2005-02-27 00:00:00 Completed [facility] HIB 4 Dose Schedule 2005-02-27 00:00:00 Completed [facility] Hep B, Adol or Pedi Dosage 2005-02-27 00:00:00 Completed [facility] Pneumococcal 13 Conjugate, PCV13 (Prevnar 13) 2005-02-27 00:00:00 Completed [facility] Polio (IPV/OPV) 2005-02-27 00:00:00 Completed [facility] DTAP 2005-02-27 00:00:00 Completed [facility] HIB 4 Dose Schedule 2005-02-27 00:00:00 Completed [facility] Hep B, Adol or Pedi Dosage 2005-02-27 00:00:00 Completed [facility] Pneumococcal 13 Conjugate, PCV13 (Prevnar 13) 2005-02-27 00:00:00 Completed [facility] Polio (IPV/OPV) 2005-02-27 00:00:00 Completed [facility] DTAP 2005-02-27 00:00:00 Completed [facility] HIB 4 Dose Schedule 2005-02-27 00:00:00 Completed [facility] Hep B, Adol or Pedi Dosage 2005-02-27 00:00:00 Completed [facility] Pneumococcal 13 Conjugate, PCV13 (Prevnar 13) 2005-02-27 00:00:00 Completed [facility] Polio (IPV/OPV) 2005-02-27 00:00:00 Completed [facility] DTAP 2005-02-27 00:00:00 Completed [facility] HIB 4 Dose Schedule 2005-02-27 00:00:00 Completed [facility] Hep B, Adol or Pedi Dosage 2005-02-27 00:00:00 Completed [facility] Pneumococcal 13 Conjugate, PCV13 (Prevnar 13) 2005-02-27 00:00:00 Completed [facility] Polio (IPV/OPV) 2005-02-27 00:00:00 Completed [facility] DTAP 2005-02-27 00:00:00 Completed [facility] HIB 4 Dose Schedule 2005-02-27 00:00:00 Completed [facility] Hep B, Adol or Pedi Dosage 2005-02-27 00:00:00 Completed [facility] Pneumococcal 13 Conjugate, PCV13 (Prevnar 13) 2005-02-27 00:00:00 Completed [facility] Polio (IPV/OPV) 2005-02-27 00:00:00 Completed [facility] DTAP 2005-02-27 00:00:00 Completed [facility] HIB 4 Dose Schedule 2005-02-27 00:00:00 Completed [facility] Hep B, Adol or Pedi Dosage 2005-02-27 00:00:00 Completed [facility] Pneumococcal 13 Conjugate, PCV13 (Prevnar 13) 2005-02-27 00:00:00 Completed [facility] Polio (IPV/OPV) 2005-02-27 00:00:00 Completed [facility] DTAP 2005-02-27 00:00:00 Completed [facility] HIB 4 Dose Schedule 2005-02-27 00:00:00 Completed [facility] Hep B, Adol or Pedi Dosage 2005-02-27 00:00:00 Completed [facility] Pneumococcal 13 Conjugate, PCV13 (Prevnar 13) 2005-02-27 00:00:00 Completed [facility] Polio (IPV/OPV) 2005-02-27 00:00:00 Completed [facility] DTAP 2005-02-27 00:00:00 Completed HIB 4 Dose Schedule 2004 00:00:00 Completed Hep B, Adol or Pedi Dosage 2004 00:00:00 Completed Pneumococcal 13 Conjugate, PCV13 (Prevnar 13) 2004 00:00:00 Completed Polio (IPV/OPV) 2004 00:00:00 Completed DTAP 2004 00:00:00 Completed [facility] HIB 4 Dose Schedule 2004 00:00:00 Completed [facility] Hep B, Adol or Pedi Dosage 2004 00:00:00 Completed [facility] Pneumococcal 13 Conjugate, PCV13 (Prevnar 13) 2004 00:00:00 Completed [facility] Polio (IPV/OPV) 2004 00:00:00 Completed [facility] DTAP 2004 00:00:00 Completed [facility] HIB 4 Dose Schedule 2004 00:00:00 Completed [facility] Hep B, Adol or Pedi Dosage 2004 00:00:00 Completed [facility] Pneumococcal 13 Conjugate, PCV13 (Prevnar 13) 2004 00:00:00 Completed [facility] Polio (IPV/OPV) 2004 00:00:00 Completed [facility] DTAP 2004 00:00:00 Completed [facility] HIB 4 Dose Schedule 2004 00:00:00 Completed [facility] Hep B, Adol or Pedi Dosage 2004 00:00:00 Completed [facility] Pneumococcal 13 Conjugate, PCV13 (Prevnar 13) 2004 00:00:00 Completed [facility] Polio (IPV/OPV) 2004 00:00:00 Completed [facility] DTAP 2004 00:00:00 Completed [facility] HIB 4 Dose Schedule 2004 00:00:00 Completed [facility] Hep B, Adol or Pedi Dosage 2004 00:00:00 Completed [facility] Pneumococcal 13 Conjugate, PCV13 (Prevnar 13) 2004 00:00:00 Completed [facility] Polio (IPV/OPV) 2004 00:00:00 Completed [facility] DTAP 2004 00:00:00 Completed [facility] HIB 4 Dose Schedule 2004 00:00:00 Completed [facility] Hep B, Adol or Pedi Dosage 2004 00:00:00 Completed [facility] Pneumococcal 13 Conjugate, PCV13 (Prevnar 13) 2004 00:00:00 Completed [facility] Polio (IPV/OPV) 2004 00:00:00 Completed [facility] DTAP 2004 00:00:00 Completed [facility] HIB 4 Dose Schedule 2004 00:00:00 Completed [facility] Hep B, Adol or Pedi Dosage 2004 00:00:00 Completed [facility] Pneumococcal 13 Conjugate, PCV13 (Prevnar 13) 2004 00:00:00 Completed [facility] Polio (IPV/OPV) 2004 00:00:00 Completed [facility] DTAP 2004 00:00:00 Completed [facility] HIB 4 Dose Schedule 2004 00:00:00 Completed [facility] Hep B, Adol or Pedi Dosage 2004 00:00:00 Completed [facility] Pneumococcal 13 Conjugate, PCV13 (Prevnar 13) 2004 00:00:00 Completed [facility] Polio (IPV/OPV) 2004 00:00:00 Completed [facility] DTAP 2004 00:00:00 Completed [facility] HIB 4 Dose Schedule 2004 00:00:00 Completed [facility] Hep B, Adol or Pedi Dosage 2004 00:00:00 Completed [facility] Pneumococcal 13 Conjugate, PCV13 (Prevnar 13) 2004 00:00:00 Completed [facility] Polio (IPV/OPV) 2004 00:00:00 Completed [facility] DTAP 2004 00:00:00 Completed [facility] HIB 4 Dose Schedule 2004 00:00:00 Completed [facility] Hep B, Adol or Pedi Dosage 2004 00:00:00 Completed [facility] Pneumococcal 13 Conjugate, PCV13 (Prevnar 13) 2004 00:00:00 Completed [facility] Polio (IPV/OPV) 2004 00:00:00 Completed [facility] DTAP 2004 00:00:00 Completed [facility] HIB 4 Dose Schedule 2004 00:00:00 Completed [facility] Hep B, Adol or Pedi Dosage 2004 00:00:00 Completed [facility] Pneumococcal 13 Conjugate, PCV13 (Prevnar 13) 2004 00:00:00 Completed [facility] Polio (IPV/OPV) 2004 00:00:00 Completed [facility] DTAP 2004 00:00:00 Completed [facility] HIB 4 Dose Schedule 2004 00:00:00 Completed [facility] Hep B, Adol or Pedi Dosage 2004 00:00:00 Completed [facility] Pneumococcal 13 Conjugate, PCV13 (Prevnar 13) 2004 00:00:00 Completed [facility] Polio (IPV/OPV) 2004 00:00:00 Completed [facility] DTAP 2004 00:00:00 Completed [facility] HIB 4 Dose Schedule 2004 00:00:00 Completed [facility] Hep B, Adol or Pedi Dosage 2004 00:00:00 Completed [facility] Pneumococcal 13 Conjugate, PCV13 (Prevnar 13) 2004 00:00:00 Completed [facility] Polio (IPV/OPV) 2004 00:00:00 Completed [facility] DTAP 2004 00:00:00 Completed [facility] HIB 4 Dose Schedule 2004 00:00:00 Completed [facility] Hep B, Adol or Pedi Dosage 2004 00:00:00 Completed [facility] Pneumococcal 13 Conjugate, PCV13 (Prevnar 13) 2004 00:00:00 Completed [facility] Polio (IPV/OPV) 2004 00:00:00 Completed [facility] DTAP 2004 00:00:00 Completed [facility] HIB 4 Dose Schedule 2004 00:00:00 Completed [facility] Hep B, Adol or Pedi Dosage 2004 00:00:00 Completed [facility] Pneumococcal 13 Conjugate, PCV13 (Prevnar 13) 2004 00:00:00 Completed [facility] Polio (IPV/OPV) 2004 00:00:00 Completed [facility] DTAP 2004 00:00:00 Completed [facility] HIB 4 Dose Schedule 2004 00:00:00 Completed [facility] Hep B, Adol or Pedi Dosage 2004 00:00:00 Completed [facility] Pneumococcal 13 Conjugate, PCV13 (Prevnar 13) 2004 00:00:00 Completed [facility] Polio (IPV/OPV) 2004 00:00:00 Completed [facility] DTAP 2004 00:00:00 Completed [facility] HIB 4 Dose Schedule 2004 00:00:00 Completed [facility] Hep B, Adol or Pedi Dosage 2004 00:00:00 Completed [facility] Pneumococcal 13 Conjugate, PCV13 (Prevnar 13) 2004 00:00:00 Completed [facility] Polio (IPV/OPV) 2004 00:00:00 Completed [facility] DTAP 2004 00:00:00 Completed [facility] HIB 4 Dose Schedule 2004 00:00:00 Completed [facility] Hep B, Adol or Pedi Dosage 2004 00:00:00 Completed [facility] Pneumococcal 13 Conjugate, PCV13 (Prevnar 13) 2004 00:00:00 Completed [facility] Polio (IPV/OPV) 2004 00:00:00 Completed [facility] DTAP 2004 00:00:00 Completed [facility] HIB 4 Dose Schedule 2004 00:00:00 Completed [facility] Hep B, Adol or Pedi Dosage 2004 00:00:00 Completed [facility] Pneumococcal 13 Conjugate, PCV13 (Prevnar 13) 2004 00:00:00 Completed [facility] Polio (IPV/OPV) 2004 00:00:00 Completed [facility] DTAP 2004 00:00:00 Completed [facility] HIB 4 Dose Schedule 2004 00:00:00 Completed [facility] Hep B, Adol or Pedi Dosage 2004 00:00:00 Completed [facility] Pneumococcal 13 Conjugate, PCV13 (Prevnar 13) 2004 00:00:00 Completed [facility] Polio (IPV/OPV) 2004 00:00:00 Completed [facility] DTAP 2004 00:00:00 Completed [facility] HIB 4 Dose Schedule 2004 00:00:00 Completed [facility] Hep B, Adol or Pedi Dosage 2004 00:00:00 Completed [facility] Pneumococcal 13 Conjugate, PCV13 (Prevnar 13) 2004 00:00:00 Completed [facility] Polio (IPV/OPV) 2004 00:00:00 Completed [facility] DTAP 2004 00:00:00 Completed [facility] HIB 4 Dose Schedule 2004 00:00:00 Completed [facility] Hep B, Adol or Pedi Dosage 2004 00:00:00 Completed [facility] Pneumococcal 13 Conjugate, PCV13 (Prevnar 13) 2004 00:00:00 Completed [facility] Polio (IPV/OPV) 2004 00:00:00 Completed [facility] DTAP 2004 00:00:00 Completed [facility] HIB 4 Dose Schedule 2004 00:00:00 Completed [facility] Hep B, Adol or Pedi Dosage 2004 00:00:00 Completed [facility] Pneumococcal 13 Conjugate, PCV13 (Prevnar 13) 2004 00:00:00 Completed [facility] Polio (IPV/OPV) 2004 00:00:00 Completed [facility] DTAP 2004 00:00:00 Completed [facility] HIB 4 Dose Schedule 2004 00:00:00 Completed [facility] Hep B, Adol or Pedi Dosage 2004 00:00:00 Completed [facility] Pneumococcal 13 Conjugate, PCV13 (Prevnar 13) 2004 00:00:00 Completed [facility] Polio (IPV/OPV) 2004 00:00:00 Completed [facility] DTAP 2004 00:00:00 Completed [facility] HIB 4 Dose Schedule 2004 00:00:00 Completed [facility] Hep B, Adol or Pedi Dosage 2004 00:00:00 Completed [facility] Pneumococcal 13 Conjugate, PCV13 (Prevnar 13) 2004 00:00:00 Completed [facility] Polio (IPV/OPV) 2004 00:00:00 Completed [facility] DTAP 2004 00:00:00 Completed [facility] HIB 4 Dose Schedule 2004 00:00:00 Completed [facility] Hep B, Adol or Pedi Dosage 2004 00:00:00 Completed [facility] Pneumococcal 13 Conjugate, PCV13 (Prevnar 13) 2004 00:00:00 Completed [facility] Polio (IPV/OPV) 2004 00:00:00 Completed [facility] DTAP 2004 00:00:00 Completed [facility] HIB 4 Dose Schedule 2004 00:00:00 Completed [facility] Hep B, Adol or Pedi Dosage 2004 00:00:00 Completed [facility] Pneumococcal 13 Conjugate, PCV13 (Prevnar 13) 2004 00:00:00 Completed [facility] Polio (IPV/OPV) 2004 00:00:00 Completed [facility] DTAP 2004 00:00:00 Completed [facility] HIB 4 Dose Schedule 2004 00:00:00 Completed [facility] Hep B, Adol or Pedi Dosage 2004 00:00:00 Completed [facility] Pneumococcal 13 Conjugate, PCV13 (Prevnar 13) 2004 00:00:00 Completed [facility] Polio (IPV/OPV) 2004 00:00:00 Completed [facility] DTAP 2004 00:00:00 Completed [facility] HIB 4 Dose Schedule 2004 00:00:00 Completed [facility] Hep B, Adol or Pedi Dosage 2004 00:00:00 Completed [facility] Pneumococcal 13 Conjugate, PCV13 (Prevnar 13) 2004 00:00:00 Completed [facility] Polio (IPV/OPV) 2004 00:00:00 Completed [facility] DTAP 2004 00:00:00 Completed [facility] HIB 4 Dose Schedule 2004 00:00:00 Completed [facility] Hep B, Adol or Pedi Dosage 2004 00:00:00 Completed [facility] Pneumococcal 13 Conjugate, PCV13 (Prevnar 13) 2004 00:00:00 Completed [facility] Polio (IPV/OPV) 2004 00:00:00 Completed [facility] DTAP 2004 00:00:00 Completed [facility] HIB 4 Dose Schedule 2004 00:00:00 Completed [facility] Hep B, Adol or Pedi Dosage 2004 00:00:00 Completed [facility] Pneumococcal 13 Conjugate, PCV13 (Prevnar 13) 2004 00:00:00 Completed [facility] Polio (IPV/OPV) 2004 00:00:00 Completed [facility] DTAP 2004 00:00:00 Completed [facility] HIB 4 Dose Schedule 2004 00:00:00 Completed [facility] Hep B, Adol or Pedi Dosage 2004 00:00:00 Completed [facility] Pneumococcal 13 Conjugate, PCV13 (Prevnar 13) 2004 00:00:00 Completed [facility] Polio (IPV/OPV) 2004 00:00:00 Completed [facility] DTAP 2004 00:00:00 Completed [facility] HIB 4 Dose Schedule 2004 00:00:00 Completed [facility] Hep B, Adol or Pedi Dosage 2004 00:00:00 Completed [facility] Pneumococcal 13 Conjugate, PCV13 (Prevnar 13) 2004 00:00:00 Completed [facility] Polio (IPV/OPV) 2004 00:00:00 Completed [facility] DTAP 2004 00:00:00 Completed [facility] HIB 4 Dose Schedule 2004 00:00:00 Completed [facility] Hep B, Adol or Pedi Dosage 2004 00:00:00 Completed [facility] Pneumococcal 13 Conjugate, PCV13 (Prevnar 13) 2004 00:00:00 Completed [facility] Polio (IPV/OPV) 2004 00:00:00 Completed [facility] DTAP 2004 00:00:00 Completed HIB 4 Dose Schedule 2004 00:00:00 Completed Hep B, Adol or Pedi Dosage 2004 00:00:00 Completed Pneumococcal 13 Conjugate, PCV13 (Prevnar 13) 2004 00:00:00 Completed Polio (IPV/OPV) 2004 00:00:00 Completed DTAP 2004 00:00:00 Completed [facility] HIB 4 Dose Schedule 2004 00:00:00 Completed [facility] Hep B, Adol or Pedi Dosage 2004 00:00:00 Completed [facility] Pneumococcal 13 Conjugate, PCV13 (Prevnar 13) 2004 00:00:00 Completed [facility] Polio (IPV/OPV) 2004 00:00:00 Completed [facility] DTAP 2004 00:00:00 Completed [facility] HIB 4 Dose Schedule 2004 00:00:00 Completed [facility] Hep B, Adol or Pedi Dosage 2004 00:00:00 Completed [facility] Pneumococcal 13 Conjugate, PCV13 (Prevnar 13) 2004 00:00:00 Completed [facility] Polio (IPV/OPV) 2004 00:00:00 Completed [facility] DTAP 2004 00:00:00 Completed [facility] HIB 4 Dose Schedule 2004 00:00:00 Completed [facility] Hep B, Adol or Pedi Dosage 2004 00:00:00 Completed [facility] Pneumococcal 13 Conjugate, PCV13 (Prevnar 13) 2004 00:00:00 Completed [facility] Polio (IPV/OPV) 2004 00:00:00 Completed [facility] DTAP 2004 00:00:00 Completed [facility] HIB 4 Dose Schedule 2004 00:00:00 Completed [facility] Hep B, Adol or Pedi Dosage 2004 00:00:00 Completed [facility] Pneumococcal 13 Conjugate, PCV13 (Prevnar 13) 2004 00:00:00 Completed [facility] Polio (IPV/OPV) 2004 00:00:00 Completed [facility] DTAP 2004 00:00:00 Completed [facility] HIB 4 Dose Schedule 2004 00:00:00 Completed [facility] Hep B, Adol or Pedi Dosage 2004 00:00:00 Completed [facility] Pneumococcal 13 Conjugate, PCV13 (Prevnar 13) 2004 00:00:00 Completed [facility] Polio (IPV/OPV) 2004 00:00:00 Completed [facility] DTAP 2004 00:00:00 Completed [facility] HIB 4 Dose Schedule 2004 00:00:00 Completed [facility] Hep B, Adol or Pedi Dosage 2004 00:00:00 Completed [facility] Pneumococcal 13 Conjugate, PCV13 (Prevnar 13) 2004 00:00:00 Completed [facility] Polio (IPV/OPV) 2004 00:00:00 Completed [facility] DTAP 2004 00:00:00 Completed [facility] HIB 4 Dose Schedule 2004 00:00:00 Completed [facility] Hep B, Adol or Pedi Dosage 2004 00:00:00 Completed [facility] Pneumococcal 13 Conjugate, PCV13 (Prevnar 13) 2004 00:00:00 Completed [facility] Polio (IPV/OPV) 2004 00:00:00 Completed [facility] DTAP 2004 00:00:00 Completed [facility] HIB 4 Dose Schedule 2004 00:00:00 Completed [facility] Hep B, Adol or Pedi Dosage 2004 00:00:00 Completed [facility] Pneumococcal 13 Conjugate, PCV13 (Prevnar 13) 2004 00:00:00 Completed [facility] Polio (IPV/OPV) 2004 00:00:00 Completed [facility] DTAP 2004 00:00:00 Completed [facility] HIB 4 Dose Schedule 2004 00:00:00 Completed [facility] Hep B, Adol or Pedi Dosage 2004 00:00:00 Completed [facility] Pneumococcal 13 Conjugate, PCV13 (Prevnar 13) 2004 00:00:00 Completed [facility] Polio (IPV/OPV) 2004 00:00:00 Completed [facility] DTAP 2004 00:00:00 Completed [facility] HIB 4 Dose Schedule 2004 00:00:00 Completed [facility] Hep B, Adol or Pedi Dosage 2004 00:00:00 Completed [facility] Pneumococcal 13 Conjugate, PCV13 (Prevnar 13) 2004 00:00:00 Completed [facility] Polio (IPV/OPV) 2004 00:00:00 Completed [facility] DTAP 2004 00:00:00 Completed [facility] HIB 4 Dose Schedule 2004 00:00:00 Completed [facility] Hep B, Adol or Pedi Dosage 2004 00:00:00 Completed [facility] Pneumococcal 13 Conjugate, PCV13 (Prevnar 13) 2004 00:00:00 Completed [facility] Polio (IPV/OPV) 2004 00:00:00 Completed [facility] DTAP 2004 00:00:00 Completed [facility] HIB 4 Dose Schedule 2004 00:00:00 Completed [facility] Hep B, Adol or Pedi Dosage 2004 00:00:00 Completed [facility] Pneumococcal 13 Conjugate, PCV13 (Prevnar 13) 2004 00:00:00 Completed [facility] Polio (IPV/OPV) 2004 00:00:00 Completed [facility] DTAP 2004 00:00:00 Completed [facility] HIB 4 Dose Schedule 2004 00:00:00 Completed [facility] Hep B, Adol or Pedi Dosage 2004 00:00:00 Completed [facility] Pneumococcal 13 Conjugate, PCV13 (Prevnar 13) 2004 00:00:00 Completed [facility] Polio (IPV/OPV) 2004 00:00:00 Completed [facility] DTAP 2004 00:00:00 Completed [facility] HIB 4 Dose Schedule 2004 00:00:00 Completed [facility] Hep B, Adol or Pedi Dosage 2004 00:00:00 Completed [facility] Pneumococcal 13 Conjugate, PCV13 (Prevnar 13) 2004 00:00:00 Completed [facility] Polio (IPV/OPV) 2004 00:00:00 Completed [facility] DTAP 2004 00:00:00 Completed [facility] HIB 4 Dose Schedule 2004 00:00:00 Completed [facility] Hep B, Adol or Pedi Dosage 2004 00:00:00 Completed [facility] Pneumococcal 13 Conjugate, PCV13 (Prevnar 13) 2004 00:00:00 Completed [facility] Polio (IPV/OPV) 2004 00:00:00 Completed [facility] DTAP 2004 00:00:00 Completed [facility] HIB 4 Dose Schedule 2004 00:00:00 Completed [facility] Hep B, Adol or Pedi Dosage 2004 00:00:00 Completed [facility] Pneumococcal 13 Conjugate, PCV13 (Prevnar 13) 2004 00:00:00 Completed [facility] Polio (IPV/OPV) 2004 00:00:00 Completed [facility] DTAP 2004 00:00:00 Completed [facility] HIB 4 Dose Schedule 2004 00:00:00 Completed [facility] Hep B, Adol or Pedi Dosage 2004 00:00:00 Completed [facility] Pneumococcal 13 Conjugate, PCV13 (Prevnar 13) 2004 00:00:00 Completed [facility] Polio (IPV/OPV) 2004 00:00:00 Completed [facility] DTAP 2004 00:00:00 Completed [facility] HIB 4 Dose Schedule 2004 00:00:00 Completed [facility] Hep B, Adol or Pedi Dosage 2004 00:00:00 Completed [facility] Pneumococcal 13 Conjugate, PCV13 (Prevnar 13) 2004 00:00:00 Completed [facility] Polio (IPV/OPV) 2004 00:00:00 Completed [facility] DTAP 2004 00:00:00 Completed [facility] HIB 4 Dose Schedule 2004 00:00:00 Completed [facility] Hep B, Adol or Pedi Dosage 2004 00:00:00 Completed [facility] Pneumococcal 13 Conjugate, PCV13 (Prevnar 13) 2004 00:00:00 Completed [facility] Polio (IPV/OPV) 2004 00:00:00 Completed [facility] DTAP 2004 00:00:00 Completed [facility] HIB 4 Dose Schedule 2004 00:00:00 Completed [facility] Hep B, Adol or Pedi Dosage 2004 00:00:00 Completed [facility] Pneumococcal 13 Conjugate, PCV13 (Prevnar 13) 2004 00:00:00 Completed [facility] Polio (IPV/OPV) 2004 00:00:00 Completed [facility] DTAP 2004 00:00:00 Completed [facility] HIB 4 Dose Schedule 2004 00:00:00 Completed [facility] Hep B, Adol or Pedi Dosage 2004 00:00:00 Completed [facility] Pneumococcal 13 Conjugate, PCV13 (Prevnar 13) 2004 00:00:00 Completed [facility] Polio (IPV/OPV) 2004 00:00:00 Completed [facility] DTAP 2004 00:00:00 Completed [facility] HIB 4 Dose Schedule 2004 00:00:00 Completed [facility] Hep B, Adol or Pedi Dosage 2004 00:00:00 Completed [facility] Pneumococcal 13 Conjugate, PCV13 (Prevnar 13) 2004 00:00:00 Completed [facility] Polio (IPV/OPV) 2004 00:00:00 Completed [facility] DTAP 2004 00:00:00 Completed [facility] HIB 4 Dose Schedule 2004 00:00:00 Completed [facility] Hep B, Adol or Pedi Dosage 2004 00:00:00 Completed [facility] Pneumococcal 13 Conjugate, PCV13 (Prevnar 13) 2004 00:00:00 Completed [facility] Polio (IPV/OPV) 2004 00:00:00 Completed [facility] DTAP 2004 00:00:00 Completed [facility] HIB 4 Dose Schedule 2004 00:00:00 Completed [facility] Hep B, Adol or Pedi Dosage 2004 00:00:00 Completed [facility] Pneumococcal 13 Conjugate, PCV13 (Prevnar 13) 2004 00:00:00 Completed [facility] Polio (IPV/OPV) 2004 00:00:00 Completed [facility] DTAP 2004 00:00:00 Completed [facility] HIB 4 Dose Schedule 2004 00:00:00 Completed [facility] Hep B, Adol or Pedi Dosage 2004 00:00:00 Completed [facility] Pneumococcal 13 Conjugate, PCV13 (Prevnar 13) 2004 00:00:00 Completed [facility] Polio (IPV/OPV) 2004 00:00:00 Completed [facility] DTAP 2004 00:00:00 Completed [facility] HIB 4 Dose Schedule 2004 00:00:00 Completed [facility] Hep B, Adol or Pedi Dosage 2004 00:00:00 Completed [facility] Pneumococcal 13 Conjugate, PCV13 (Prevnar 13) 2004 00:00:00 Completed [facility] Polio (IPV/OPV) 2004 00:00:00 Completed [facility] DTAP 2004 00:00:00 Completed [facility] HIB 4 Dose Schedule 2004 00:00:00 Completed [facility] Hep B, Adol or Pedi Dosage 2004 00:00:00 Completed [facility] Pneumococcal 13 Conjugate, PCV13 (Prevnar 13) 2004 00:00:00 Completed [facility] Polio (IPV/OPV) 2004 00:00:00 Completed [facility] DTAP 2004 00:00:00 Completed [facility] HIB 4 Dose Schedule 2004 00:00:00 Completed [facility] Hep B, Adol or Pedi Dosage 2004 00:00:00 Completed [facility] Pneumococcal 13 Conjugate, PCV13 (Prevnar 13) 2004 00:00:00 Completed [facility] Polio (IPV/OPV) 2004 00:00:00 Completed [facility] DTAP 2004 00:00:00 Completed [facility] HIB 4 Dose Schedule 2004 00:00:00 Completed [facility] Hep B, Adol or Pedi Dosage 2004 00:00:00 Completed [facility] Pneumococcal 13 Conjugate, PCV13 (Prevnar 13) 2004 00:00:00 Completed [facility] Polio (IPV/OPV) 2004 00:00:00 Completed [facility] DTAP 2004 00:00:00 Completed [facility] HIB 4 Dose Schedule 2004 00:00:00 Completed [facility] Hep B, Adol or Pedi Dosage 2004 00:00:00 Completed [facility] Pneumococcal 13 Conjugate, PCV13 (Prevnar 13) 2004 00:00:00 Completed [facility] Polio (IPV/OPV) 2004 00:00:00 Completed [facility] DTAP 2004 00:00:00 Completed [facility] HIB 4 Dose Schedule 2004 00:00:00 Completed [facility] Hep B, Adol or Pedi Dosage 2004 00:00:00 Completed [facility] Pneumococcal 13 Conjugate, PCV13 (Prevnar 13) 2004 00:00:00 Completed [facility] Polio (IPV/OPV) 2004 00:00:00 Completed [facility] DTAP 2004 00:00:00 Completed [facility] HIB 4 Dose Schedule 2004 00:00:00 Completed [facility] Hep B, Adol or Pedi Dosage 2004 00:00:00 Completed [facility] Pneumococcal 13 Conjugate, PCV13 (Prevnar 13) 2004 00:00:00 Completed [facility] Polio (IPV/OPV) 2004 00:00:00 Completed [facility] DTAP 2004 00:00:00 Completed [facility] HIB 4 Dose Schedule 2004 00:00:00 Completed [facility] Hep B, Adol or Pedi Dosage 2004 00:00:00 Completed [facility] Pneumococcal 13 Conjugate, PCV13 (Prevnar 13) 2004 00:00:00 Completed [facility] Polio (IPV/OPV) 2004 00:00:00 Completed [facility] DTAP 2004 00:00:00 Completed [facility] Hep B, Adol or Pedi Dosage 2004 00:00:00 Completed Hep B, Adol or Pedi Dosage 2004 00:00:00 Completed [facility] Hep B, Adol or Pedi Dosage 2004 00:00:00 Completed [facility] Hep B, Adol or Pedi Dosage 2004 00:00:00 Completed [facility] Hep B, Adol or Pedi Dosage 2004 00:00:00 Completed [facility] Hep B, Adol or Pedi Dosage 2004 00:00:00 Completed [facility] Hep B, Adol or Pedi Dosage 2004 00:00:00 Completed [facility] Hep B, Adol or Pedi Dosage 2004 00:00:00 Completed [facility] Hep B, Adol or Pedi Dosage 2004 00:00:00 Completed [facility] Hep B, Adol or Pedi Dosage 2004 00:00:00 Completed [facility] Hep B, Adol or Pedi Dosage 2004 00:00:00 Completed [facility] Hep B, Adol or Pedi Dosage 2004 00:00:00 Completed [facility] Hep B, Adol or Pedi Dosage 2004 00:00:00 Completed [facility] Hep B, Adol or Pedi Dosage 2004 00:00:00 Completed [facility] Hep B, Adol or Pedi Dosage 2004 00:00:00 Completed [facility] Hep B, Adol or Pedi Dosage 2004 00:00:00 Completed [facility] Hep B, Adol or Pedi Dosage 2004 00:00:00 Completed [facility] Hep B, Adol or Pedi Dosage 2004 00:00:00 Completed [facility] Hep B, Adol or Pedi Dosage 2004 00:00:00 Completed [facility] Hep B, Adol or Pedi Dosage 2004 00:00:00 Completed [facility] Hep B, Adol or Pedi Dosage 2004 00:00:00 Completed [facility] Hep B, Adol or Pedi Dosage 2004 00:00:00 Completed [facility] Hep B, Adol or Pedi Dosage 2004 00:00:00 Completed [facility] Hep B, Adol or Pedi Dosage 2004 00:00:00 Completed [facility] Hep B, Adol or Pedi Dosage 2004 00:00:00 Completed [facility] Hep B, Adol or Pedi Dosage 2004 00:00:00 Completed [facility] Hep B, Adol or Pedi Dosage 2004 00:00:00 Completed [facility] Hep B, Adol or Pedi Dosage 2004 00:00:00 Completed [facility] Hep B, Adol or Pedi Dosage 2004 00:00:00 Completed [facility] Hep B, Adol or Pedi Dosage 2004 00:00:00 Completed [facility] Hep B, Adol or Pedi Dosage 2004 00:00:00 Completed [facility] Hep B, Adol or Pedi Dosage 2004 00:00:00 Completed [facility] Hep B, Adol or Pedi Dosage 2004 00:00:00 Completed [facility] Hep B, Adol or Pedi Dosage 2004 00:00:00 Completed [facility] [facility] Influ[facility] Virus Vaccine Quad .5 mL IM 6+ MO (FLUZONE/FLULAVAL/FL UARIX) Unknown Completed [facility] DTAP Unknown Completed [facility] HIB 4 Dose Schedule Unknown Completed [facility] HEPATITIS A Unknown Completed [facility] Hep B, Adol or Pedi Dosage Unknown Completed [facility] Meningococcal Polysaccharide (groups A, C, Y and W-135) conjugate vaccine (MCV4P) Unknown Completed [facility] MMR Unknown Completed [facility] Pneumococcal 13 Conjugate, PCV13 (Prevnar 13) Unknown Completed [facility] Polio (IPV/OPV) Unknown Completed [facility] TDAP Unknown Completed [facility] Varicella (varivax)(chicken pox) Unknown Completed [facility] HPV9 Unknown Completed [facility] Pneumococcal Polysaccharide, PPSV23 (PNEUMOVAX) Unknown Completed [facility] Influenza Virus Vaccine Quad .5 mL IM 6+ MO (FLUZONE/FLULAVAL/FL UARIX) Unknown Completed [facility] DTAP Unknown Completed [facility] HIB 4 Dose Schedule Unknown Completed [facility] HEPATITIS A Unknown Completed [facility] Hep B, Adol or Pedi Dosage Unknown Completed [facility] Meningococcal Polysaccharide (groups A, C, Y and W-135) conjugate vaccine (MCV4P) Unknown Completed [facility] MMR Unknown Completed [facility] Pneumococcal 13 Conjugate, PCV13 (Prevnar 13) Unknown Completed [facility] Polio (IPV/OPV) Unknown Completed [facility] TDAP Unknown Completed [facility] Varicella (varivax)(chicken pox) Unknown Completed [facility] HPV9 Unknown Completed [facility] Pneumococcal Polysaccharide, PPSV23 (PNEUMOVAX) Unknown Completed [facility] Influenza Virus Vaccine Quad .5 mL IM 6+ MO (FLUZONE/FLULAVAL/FL UARIX) Unknown Completed [facility] DTAP Unknown Completed [facility] HIB 4 Dose Schedule Unknown Completed [facility] HEPATITIS A Unknown Completed [facility] Hep B, Adol or Pedi Dosage Unknown Completed [facility] Meningococcal Polysaccharide (groups A, C, Y and W-135) conjugate vaccine (MCV4P) Unknown Completed [facility] MMR Unknown Completed [facility] Pneumococcal 13 Conjugate, PCV13 (Prevnar 13) Unknown Completed [facility] Polio (IPV/OPV) Unknown Completed [facility] TDAP Unknown Completed [facility] Varicella (varivax)(chicken pox) Unknown Completed [facility] HPV9 Unknown Completed [facility] Pneumococcal Polysaccharide, PPSV23 (PNEUMOVAX) Unknown Completed [facility] Pneumococcal Polysaccharide, PPSV23 (PNEUMOVAX) Unknown Completed [facility] Influenza Virus Vaccine Quad .5 mL IM 6+ MO (FLUZONE/FLULAVAL/FL UARIX) Unknown Completed [facility] DTAP Unknown Completed [facility] HIB 4 Dose Schedule Unknown Completed [facility] HEPATITIS A Unknown Completed [facility] Hep B, Adol or Pedi Dosage Unknown Completed [facility] Meningococcal Polysaccharide (groups A, C, Y and W-135) conjugate vaccine (MCV4P) Unknown Completed [facility] MMR Unknown Completed [facility] Pneumococcal 13 Conjugate, PCV13 (Prevnar 13) Unknown Completed [facility] Polio (IPV/OPV) Unknown Completed [facility] TDAP Unknown Completed [facility] Varicella (varivax)(chicken pox) Unknown Completed [facility] HPV9 Unknown Completed [facility] Pneumococcal Polysaccharide, PPSV23 (PNEUMOVAX) Unknown Completed [facility] Influenza Virus Vaccine Quad .5 mL IM 6+ MO (FLUZONE/FLULAVAL/FL UARIX) Unknown Completed [facility] DTAP Unknown Completed [facility] HIB 4 Dose Schedule Unknown Completed [facility] HEPATITIS A Unknown Completed [facility] Hep B, Adol or Pedi Dosage Unknown Completed [facility] Meningococcal Polysaccharide (groups A, C, Y and W-135) conjugate vaccine (MCV4P) Unknown Completed [facility] MMR Unknown Completed [facility] Pneumococcal 13 Conjugate, PCV13 (Prevnar 13) Unknown Completed [facility] Polio (IPV/OPV) Unknown Completed [facility] TDAP Unknown Completed [facility] Varicella (varivax)(chicken pox) Unknown Completed [facility] HPV9 Unknown Completed [facility] Pneumococcal Polysaccharide, PPSV23 (PNEUMOVAX) Unknown Completed [facility] Influenza Virus Vaccine Quad .5 mL IM 6+ MO (FLUZONE/FLULAVAL/FL UARIX) Unknown Completed [facility] DTAP Unknown Completed [facility] HIB 4 Dose Schedule Unknown Completed [facility] HEPATITIS A Unknown Completed [facility] Hep B, Adol or Pedi Dosage Unknown Completed [facility] Meningococcal Polysaccharide (groups A, C, Y and W-135) conjugate vaccine (MCV4P) Unknown Completed [facility] MMR Unknown Completed [facility] Pneumococcal 13 Conjugate, PCV13 (Prevnar 13) Unknown Completed [facility] Polio (IPV/OPV) Unknown Completed [facility] TDAP Unknown Completed [facility] Varicella (varivax)(chicken pox) Unknown Completed [facility] HPV9 Unknown Completed [facility] Influenza Virus Vaccine Quad .5 mL IM 6+ MO (FLUZONE/FLULAVAL/FL UARIX) Unknown Completed [facility] DTAP Unknown Completed [facility] HIB 4 Dose Schedule Unknown Completed [facility] HEPATITIS A Unknown Completed [facility] Hep B, Adol or Pedi Dosage Unknown Completed [facility] Meningococcal Polysaccharide (groups A, C, Y and W-135) conjugate vaccine (MCV4P) Unknown Completed [facility] MMR Unknown Completed [facility] Pneumococcal 13 Conjugate, PCV13 (Prevnar 13) Unknown Completed [facility] Polio (IPV/OPV) Unknown Completed [facility] TDAP Unknown Completed [facility] Varicella (varivax)(chicken pox) Unknown Completed [facility] HPV9 Unknown Completed [facility] Pneumococcal Polysaccharide, PPSV23 (PNEUMOVAX) Unknown Completed [facility] Influenza Virus Vaccine Quad .5 mL IM 6+ MO (FLUZONE/FLULAVAL/FL UARIX) Unknown Completed [facility] DTAP Unknown Completed [facility] HIB 4 Dose Schedule Unknown Completed [facility] HEPATITIS A Unknown Completed [facility] Hep B, Adol or Pedi Dosage Unknown Completed [facility] Meningococcal Polysaccharide (groups A, C, Y and W-135) conjugate vaccine (MCV4P) Unknown Completed [facility] MMR Unknown Completed [facility] Pneumococcal 13 Conjugate, PCV13 (Prevnar 13) Unknown Completed [facility] Polio (IPV/OPV) Unknown Completed [facility] TDAP Unknown Completed [facility] Varicella (varivax)(chicken pox) Unknown Completed [facility] HPV9 Unknown Completed [facility] Pneumococcal Polysaccharide, PPSV23 (PNEUMOVAX) Unknown Completed [facility] Pneumococcal Polysaccharide, PPSV23 (PNEUMOVAX) Unknown Completed [facility] Influenza Virus Vaccine Quad .5 mL IM 6+ MO (FLUZONE/FLULAVAL/FL UARIX) Unknown Completed [facility] DTAP Unknown Completed [facility] HIB 4 Dose Schedule Unknown Completed [facility] HEPATITIS A Unknown Completed [facility] Hep B, Adol or Pedi Dosage Unknown Completed [facility] Meningococcal Polysaccharide (groups A, C, Y and W-135) conjugate vaccine (MCV4P) Unknown Completed [facility] MMR Unknown Completed [facility] Pneumococcal 13 Conjugate, PCV13 (Prevnar 13) Unknown Completed [facility] Polio (IPV/OPV) Unknown Completed [facility] TDAP Unknown Completed [facility] Varicella (varivax)(chicken pox) Unknown Completed [facility] HPV9 Unknown Completed [facility] Influenza Virus Vaccine Quad .5 mL IM 6+ MO (FLUZONE/FLULAVAL/FL UARIX) Unknown Completed [facility] DTAP Unknown Completed [facility] HIB 4 Dose Schedule Unknown Completed [facility] HEPATITIS A Unknown Completed [facility] Hep B, Adol or Pedi Dosage Unknown Completed [facility] Meningococcal Polysaccharide (groups A, C, Y and W-135) conjugate vaccine (MCV4P) Unknown Completed [facility] MMR Unknown Completed [facility] Pneumococcal 13 Conjugate, PCV13 (Prevnar 13) Unknown Completed [facility] Polio (IPV/OPV) Unknown Completed [facility] TDAP Unknown Completed [facility] Varicella (varivax)(chicken pox) Unknown Completed [facility] HPV9 Unknown Completed [facility] Pneumococcal Polysaccharide, PPSV23 (PNEUMOVAX) Unknown Completed [facility] Influenza Virus Vaccine Quad .5 mL IM 6+ MO (FLUZONE/FLULAVAL/FL UARIX) Unknown Completed [facility] DTAP Unknown Completed [facility] HIB 4 Dose Schedule Unknown Completed [facility] HEPATITIS A Unknown Completed [facility] Hep B, Adol or Pedi Dosage Unknown Completed [facility] Meningococcal Polysaccharide (groups A, C, Y and W-135) conjugate vaccine (MCV4P) Unknown Completed [facility] MMR Unknown Completed [facility] Pneumococcal 13 Conjugate, PCV13 (Prevnar 13) Unknown Completed [facility] Polio (IPV/OPV) Unknown Completed [facility] TDAP Unknown Completed [facility] Varicella (varivax)(chicken pox) Unknown Completed [facility] HPV9 Unknown Completed [facility] Pneumococcal Polysaccharide, PPSV23 (PNEUMOVAX) Unknown Completed [facility] Influenza Virus Vaccine Quad .5 mL IM 6+ MO (FLUZONE/FLULAVAL/FL UARIX) Unknown Completed [facility] DTAP Unknown Completed [facility] HIB 4 Dose Schedule Unknown Completed [facility] HEPATITIS A Unknown Completed [facility] Hep B, Adol or Pedi Dosage Unknown Completed [facility] Meningococcal Polysaccharide (groups A, C, Y and W-135) conjugate vaccine (MCV4P) Unknown Completed [facility] MMR Unknown Completed [facility] Pneumococcal 13 Conjugate, PCV13 (Prevnar 13) Unknown Completed [facility] Polio (IPV/OPV) Unknown Completed [facility] TDAP Unknown Completed [facility] Varicella (varivax)(chicken pox) Unknown Completed [facility] HPV9 Unknown Completed [facility] Pneumococcal Polysaccharide, PPSV23 (PNEUMOVAX) Unknown Completed [facility] Influenza Virus Vaccine Quad .5 mL IM 6+ MO (FLUZONE/FLULAVAL/FL UARIX) Unknown Completed [facility] DTAP Unknown Completed [facility] HIB 4 Dose Schedule Unknown Completed [facility] HEPATITIS A Unknown Completed [facility] Hep B, Adol or Pedi Dosage Unknown Completed [facility] Meningococcal Polysaccharide (groups A, C, Y and W-135) conjugate vaccine (MCV4P) Unknown Completed [facility] MMR Unknown Completed [facility] Pneumococcal 13 Conjugate, PCV13 (Prevnar 13) Unknown Completed [facility] Polio (IPV/OPV) Unknown Completed [facility] TDAP Unknown Completed [facility] Varicella (varivax)(chicken pox) Unknown Completed [facility] HPV9 Unknown Completed [facility] Pneumococcal Polysaccharide, PPSV23 (PNEUMOVAX) Unknown Completed [facility] Influenza Virus Vaccine Quad .5 mL IM 6+ MO (FLUZONE/FLULAVAL/FL UARIX) Unknown Completed [facility] DTAP Unknown Completed [facility] HIB 4 Dose Schedule Unknown Completed [facility] HEPATITIS A Unknown Completed [facility] Hep B, Adol or Pedi Dosage Unknown Completed [facility] Meningococcal Polysaccharide (groups A, C, Y and W-135) conjugate vaccine (MCV4P) Unknown Completed [facility] MMR Unknown Completed [facility] Pneumococcal 13 Conjugate, PCV13 (Prevnar 13) Unknown Completed [facility] Polio (IPV/OPV) Unknown Completed [facility] TDAP Unknown Completed [facility] Varicella (varivax)(chicken pox) Unknown Completed [facility] HPV9 Unknown Completed [facility] Pneumococcal Polysaccharide, PPSV23 (PNEUMOVAX) Unknown Completed [facility] Vital Signs Vital Name Observation Time Observation Value Comments S saroj Systolic blood pressure 2024 21:34:43 92 mm[Hg] [facility] Diastolic blood pressure 2024 21:34:43 61 mm[Hg] [facility] Heart rate 2024 21:34:43 91 /min [facility] Body temperature 2024 21:34:43 37.11 Mery [facility] Respiratory rate 2024 21:34:43 16 /min [facility] Oxygen saturation in Arterial blood by Pulse oximetry 2024 21:34:43 97 /min [facility] Body height 2024 18:42:00 160 cm [facility] Body weight 2024 18:42:00 41.731 kg [facility] BMI 2024 18:42:00 16.30 kg/m2 [facility] Systolic blood pressure 2024-08-11 14:29:00 96 mm[Hg] [facility] Diastolic blood pressure 2024-08-11 14:29:00 56 mm[Hg] [facility] Heart rate 2024-08-11 14:29:00 69 /min [facility] Body temperature 2024-08-11 14:29:00 37 Mery [facility] Respiratory rate 2024-08-11 14:29:00 17 /min [facility] Body height 2024-08-11 14:29:00 160 cm [facility] Body weight 2024-08-11 14:29:00 44.18 kg [facility] BMI 2024-08-11 14:29:00 17.25 kg/m2 [facility] Oxygen saturation in Arterial blood by Pulse oximetry 2024-08-11 14:29:00 100 /min [facility] Systolic blood pressure 2024-05-10 12:51:00 111 mm[Hg] [facility] Diastolic blood pressure 2024-05-10 12:51:00 72 mm[Hg] [facility] Heart rate 2024-05-10 12:51:00 108 /min [facility] Body temperature 2024-05-10 12:51:00 36.89 Mery [facility] Respiratory rate 2024-05-10 12:51:00 16 /min [facility] Body height 2024-05-10 12:51:00 160 cm [facility] Body weight 2024-05-10 12:51:00 44.169 kg [facility] BMI 2024-05-10 12:51:00 17.25 kg/m2 [facility] Systolic blood pressure 2024-02-26 13:56:00 106 mm[Hg] [facility] Diastolic blood pressure 2024-02-26 13:56:00 70 mm[Hg] [facility] Heart rate 2024-02-26 13:56:00 87 /min [facility] Respiratory rate 2024-02-26 13:56:00 18 /min [facility] Body height 2024-02-26 13:56:00 158.8 cm [facility] Body weight 2024-02-26 13:56:00 42.638 kg [facility] BMI 2024-02-26 13:56:00 16.92 kg/m2 [facility] Systolic blood pressure 2024-02-15 16:03:00 102 mm[Hg] [facility] Diastolic blood pressure 2024-02-15 16:03:00 70 mm[Hg] [facility] Heart rate 2024-02-15 16:03:00 101 /min [facility] Body temperature 2024-02-15 16:03:00 36.5 Mery [facility] Respiratory rate 2024-02-15 16:03:00 16 /min [facility] Body height 2024-02-15 16:03:00 158.8 cm [facility] Body weight 2024-02-15 16:03:00 42.048 kg [facility] BMI 2024-02-15 16:03:00 16.68 kg/m2 [facility] Oxygen saturation in Arterial blood by Pulse oximetry 2024-02-15 16:03:00 98 /min [facility] Systolic blood pressure 2023-10-21 21:11:00 102 mm[Hg] [facility] Diastolic blood pressure 2023-10-21 21:11:00 70 mm[Hg] [facility] Heart rate 2023-10-21 21:11:00 111 /min [facility] Body temperature 2023-10-21 21:11:00 36.67 Mery [facility] Respiratory rate 2023-10-21 21:11:00 14 /min [facility] Body weight 2023-10-21 21:11:00 40.415 kg [facility] Oxygen saturation in Arterial blood by Pulse oximetry 2023-10-21 21:11:00 100 /min [facility] Systolic blood pressure 2023-08-05 14:04:00 125 mm[Hg] [facility] Diastolic blood pressure 2023-08-05 14:04:00 75 mm[Hg] [facility] Heart rate 2023-08-05 14:04:00 106 /min [facility] Respiratory rate 2023-08-05 14:04:00 16 /min [facility] Body weight 2023-08-05 14:04:00 40.484 kg [facility] Systolic blood pressure 2023-07-22 20:25:00 99 mm[Hg] [facility] Diastolic blood pressure 2023-07-22 20:25:00 61 mm[Hg] [facility] Heart rate 2023-07-22 20:25:00 72 /min [facility] Respiratory rate 2023-07-22 20:25:00 16 /min [facility] Body weight 2023-07-22 20:25:00 39.52 kg [facility] Oxygen saturation in Arterial blood by Pulse oximetry 2023-07-22 20:25:00 99 /min [facility] Systolic blood pressure 2023-06-08 14:13:00 102 mm[Hg] [facility] Diastolic blood pressure 2023-06-08 14:13:00 64 mm[Hg] [facility] Heart rate 2023-06-08 14:13:00 99 /min [facility] Body temperature 2023-06-08 14:13:00 36.5 Mery [facility] Respiratory rate 2023-06-08 14:13:00 16 /min [facility] Body height 2023-06-08 14:13:00 158.1 cm [facility] Body weight 2023-06-08 14:13:00 38.964 kg [facility] BMI 2023-06-08 14:13:00 15.59 kg/m2 [facility] Body mass index (BMI) [Percentile] Per age and sex 2023-06-08 14:13:00 0.06 % [facility] Oxygen saturation in Arterial blood by Pulse oximetry 2023-06-08 14:13:00 98 /min [facility] Systolic blood pressure 2023-06-01 18:31:00 102 mm[Hg] [facility] Diastolic blood pressure 2023-06-01 18:31:00 67 mm[Hg] [facility] Heart rate 2023-06-01 18:31:00 91 /min [facility] Body temperature 2023-06-01 18:31:00 36.67 Mery [facility] Respiratory rate 2023-06-01 18:31:00 16 /min [facility] Body weight 2023-06-01 18:31:00 39.094 kg [facility] Systolic blood pressure 2023-03-30 17:46:00 113 mm[Hg] [facility] Diastolic blood pressure 2023-03-30 17:46:00 77 mm[Hg] [facility] Heart rate 2023-03-30 17:46:00 94 /min [facility] Body temperature 2023-03-30 17:46:00 36.61 Mery [facility] Respiratory rate 2023-03-30 17:46:00 15 /min [facility] Body weight 2023-03-30 17:46:00 39.735 kg [facility] Systolic blood pressure 2023-02-27 17:55:00 98 mm[Hg] [facility] Diastolic blood pressure 2023-02-27 17:55:00 56 mm[Hg] [facility] Heart rate 2023-02-27 17:55:00 66 /min [facility] Body temperature 2023-02-27 17:55:00 36.72 Mery [facility] Respiratory rate 2023-02-27 17:55:00 18 /min [facility] Body weight 2023-02-27 17:55:00 39.418 kg [facility] Oxygen saturation in Arterial blood by Pulse oximetry 2023-02-27 17:55:00 98 /min [facility] Systolic blood pressure 2023-01-28 19:56:00 113 mm[Hg] [facility] Diastolic blood pressure 2023-01-28 19:56:00 68 mm[Hg] [facility] Heart rate 2023-01-28 19:56:00 112 /min [facility] Body height 2023-01-28 19:56:00 160.7 cm [facility] Body weight 2023-01-28 19:56:00 39.055 kg [facility] BMI 2023-01-28 19:56:00 15.13 kg/m2 [facility] Body mass index (BMI) [Percentile] Per age and sex 2023-01-28 19:56:00 0.02 % [facility] Oxygen saturation in Arterial blood by Pulse oximetry 2023-01-28 19:56:00 99 /min [facility] Systolic blood pressure 2023-01-21 18:22:00 102 mm[Hg] [facility] Diastolic blood pressure 2023-01-21 18:22:00 69 mm[Hg] [facility] Heart rate 2023-01-21 18:22:00 97 /min [facility] Body temperature 2023-01-21 18:22:00 36.94 Mery [facility] Respiratory rate 2023-01-21 18:22:00 15 /min [facility] Body weight 2023-01-21 18:22:00 39.644 kg [facility] Oxygen saturation in Arterial blood by Pulse oximetry 2023-01-21 18:22:00 98 /min [facility] Systolic blood pressure 2023-01-02 13:48:00 108 mm[Hg] [facility] Diastolic blood pressure 2023-01-02 13:48:00 69 mm[Hg] [facility] Heart rate 2023-01-02 13:48:00 113 /min [facility] Body temperature 2023-01-02 13:48:00 37.22 Mery [facility] Respiratory rate 2023-01-02 13:48:00 15 /min [facility] Body weight 2023-01-02 13:48:00 39.554 kg [facility] Systolic blood pressure 2022-12-18 18:46:00 101 mm[Hg] [facility] Diastolic blood pressure 2022-12-18 18:46:00 70 mm[Hg] [facility] Heart rate 2022-12-18 18:46:00 98 /min [facility] Body temperature 2022-12-18 18:46:00 37 Mery [facility] Respiratory rate 2022-12-18 18:46:00 15 /min [facility] Body weight 2022-12-18 18:46:00 38.374 kg [facility] Oxygen saturation in Arterial blood by Pulse oximetry 2022-12-18 18:46:00 100 /min [facility] Systolic blood pressure 2022-12-02 18:55:00 108 mm[Hg] [facility] Diastolic blood pressure 2022-12-02 18:55:00 73 mm[Hg] [facility] Heart rate 2022-12-02 18:55:00 110 /min [facility] Body temperature 2022-12-02 18:55:00 36.94 Mery [facility] Respiratory rate 2022-12-02 18:55:00 19 /min [facility] Body weight 2022-12-02 18:55:00 38.828 kg [facility] Systolic blood pressure 2022-09-10 20:37:00 105 mm[Hg] [facility] Diastolic blood pressure 2022-09-10 20:37:00 73 mm[Hg] [facility] Heart rate 2022-09-10 20:37:00 119 /min [facility] Body temperature 2022-09-10 20:37:00 37.17 Mery [facility] Respiratory rate 2022-09-10 20:37:00 18 /min [facility] Body weight 2022-09-10 20:37:00 37.875 kg [facility] [facility] saturation in Arterial blood by Pulse oximetry 2022-09-10 20:37:00 98 /min [facility] Systolic blood pressure 2022-06-16 15:22:00 103 mm[Hg] [facility] Diastolic blood pressure 2022-06-16 15:22:00 69 mm[Hg] [facility] Heart rate 2022-06-16 15:22:00 95 /min [facility] Body temperature 2022-06-16 15:22:00 36.44 [facility] Respiratory rate 2022-06-16 15:22:00 18 /min [facility] Body weight 2022-06-16 15:22:00 39.508 [facility] Oxygen saturation in Arterial blood by Pulse oximetry 2022-06-16 15:22:00 99 /min [facility] Systolic blood pressure 2022-05-23 15:59:00 97 mm[Hg] [facility] Diastolic blood pressure 2022-05-23 15:59:00 68 mm[Hg] [facility] Heart rate 2022-05-23 15:59:00 96 /min [facility] Body temperature 2022-05-23 15:59:00 36.78 M[facility] Respiratory rate 2022-05-23 15:59:00 18 /min [facility] Body weight 2022-05-23 15:59:00 40.552 kg [facility] Oxygen saturation in Arterial blood by Pulse oximetry 2022-05-23 15:59:00 99 /min [facility] Systolic blood pressure 2022-05-21 18:28:00 102 mm[Hg] [facility] Diastolic blood pressure 2022-05-21 18:28:00 69 mm[Hg] [facility] Heart rate 2022-05-21 18:28:00 103 /min [facility] Body temperature 2022-05-21 18:28:00 36.72 Mery [facility] Respiratory rate 2022-05-21 18:28:00 16 /min [facility] Body weight 2022-05-21 18:28:00 41.051 kg [facility] Systolic blood pressure 2022-03-21 08:00:00 93 mm[Hg] [facility] Diastolic blood pressure 2022-03-21 08:00:00 61 mm[Hg] [facility] Heart rate 2022-03-21 08:00:00 57 /min [facility] Respiratory rate 2022-03-21 08:00:00 16 /min [facility] Oxygen saturation in Arterial blood by Pulse oximetry 2022-03-21 08:00:00 99 /min [facility] Body temperature 2022-03-21 04:47:00 36.67 Mery [facility] Body height 2022-03-21 04:47:00 160 cm [facility] Body weight 2022-03-21 04:47:00 40.597 kg [facility] BMI 2022-03-21 04:47:00 15.85 kg/m2 [facility] Body mass index (BMI) [Percentile] Per age and sex 2022-03-21 04:47:00 0.31 % [facility] Systolic blood pressure 2022-02-24 15:11:00 99 mm[Hg] [facility] Diastolic blood pressure 2022-02-24 15:11:00 67 mm[Hg] [facility] Heart rate 2022-02-24 15:11:00 92 /min [facility] Body temperature 2022-02-24 15:11:00 36.33 Mery [facility] Respiratory rate 2022-02-24 15:11:00 12 /min [facility] Body height 2022-02-24 15:11:00 158.3 cm [facility] Body weight 2022-02-24 15:11:00 42.366 kg [facility] BMI 2022-02-24 15:11:00 16.91 kg/m2 [facility] Body mass index (BMI) [Percentile] Per age and sex 2022-02-24 15:11:00 2.60 % [facility] Systolic blood pressure 2022-02-24 15:11:00 99 mm[Hg] [facility] Diastolic blood pressure 2022-02-24 15:11:00 67 mm[Hg] [facility] Heart rate 2022-02-24 15:11:00 92 /min [facility] Body temperature 2022-02-24 15:11:00 36.33 Mery [facility] Respiratory rate 2022-02-24 15:11:00 12 /min [facility] Body height 2022-02-24 15:11:00 158.3 cm [facility] Body weight 2022-02-24 15:11:00 42.366 kg [facility] BMI 2022-02-24 15:11:00 16.91 kg/m2 [facility] Body mass index (BMI) [Percentile] Per age and sex 2022-02-24 15:11:00 2.60 % [facility] Procedures Procedure Date / Time Performed Performing Clinician Source UR[facility]YSIS 2024 19:18:00 [facility] 19:18:00 Nati Roche ra [facility] INFLUENZA A/B RSV COVID NAAT 2024 19:18:00 Jennifer Roche [facility] ASSIGNMENT OF BENEFITS 2023-07-22 20:16:42 Docjessica r Unassigned, [place] [facility] MEDICATION CORRESPONDENCE 2023-05-18 05:01:00 Do ctor Unassigned, [place] [facility] POCT URINALYSIS 2023-02-27 00:00:00 Ivonne Nayak [facility] HB ECG ROUTINE & RHYTHM STRIP 2022-12-18 19:20:10 Ivy Tavares [facility] VACCINATION OF A MINOR 2022-12-18 18:41:26 Docto r Unassigned, [place] [facility] PATIENT FINANCIAL POLICY 2022-12-02 18:50:43 Doctor Unassigned, [place] [facility] POCT MOLECULAR FLU 2022-09-10 20:39:00 Srini Sesay [facility] CONSENT/REFUSAL FOR DIAGNOSIS AND TREATMENT 2022-06-16 15:13:11 Doctor Unassigned, [place] [facility] ASSIGNMENT OF BENEFITS 2022-06-16 15:12:55 Docto r Unassigned, [place] [facility] POCT GRP A STREP (MOLECULAR) 2022-05-23 00:00:00 Ivy Tavares [facility] COMP. METABOLIC PANEL (09912) 2022-03-21 06:40:00 Ricardo Severino [facility] CBC WITH DIFF 2022-03-21 06:40:00 Ricardo Severino [facility] POCT TEST 2022-03-21 04:59:00 Ricardo Severino [facility] URINALYSIS 2022-03-21 04:56:00 Ricardo Severino [facility] NOTICE OF PRIVACY PRACTICES 2022-03-21 04:39:52 Doctor Unassigned, [place] [facility] CONSENT/REFUSAL FOR DIAGNOSIS AND TREATMENT 2022-03-21 04:38:45 Doctor Unassigned, [place] [facility] IMMUNOGLOBULIN E, SERUM 2022-02-24 16:40:00 Kole Lugo [facility] IMMUNOGLOBULIN G A M PANEL 2022-02-24 16:40:00 Hanna Jc [facility] Encounters Start Date/Time End Date/Time Encounter Type Admission Type Attending [facility] Care Facility Care Department Encounter ID Source 2021-07-01 17:55:48 Emergency [facility] [id number] [facility] 2021-06-28 16:10:45 Emergency [facility] [id number] [facility] 2021-06-28 11:07:15 Emergency [facility] [id number] [facility] 2021-06-27 18:46:17 Emergency [facility] [id number] [facility] 2024-08-23 00:00:00 2024-08-23 12:28:12 Nurse Triage Melonie Scott [facility] [place] [facility] 1.2.840.114 350.1.13.10 4.2.7.2.686 [id number] [facility] 2024 12:44:00 2024 15:38:00 Emergency X JENNIFER ROCHE SANDRA [facility] ERT [id number] [facility] 2024 12:44:00 2024 15:38:00 Emergency Jennifer Roche [facility] 1.2.840.114 350.1.13.10 4.2.7.2.686 [id number] [facility] 2024 00:00:00 2024 11:00:04 Nurse Triage oJsselyn Duran Wendy [facility] [place] ([facility]) 1.2.840.114 350.1.13.10 4.2.7.2.686 [id number] [facility] 2024-08-11 00:00:00 2024-08-11 08:38:47 Letter (Out) Lázaro Sushma [facility] 1.2.840.114 350.1.13.10 4.2.7.2.686 [id number] 225 [id number] [facility] 2024-08-11 08:20:00 2024-08-11 08:38:20 Office Visit Sushma Sesay [facility] 1.2.840.114 350.1.13.10 4.2.7.2.686 [id number] 225 [id number] [facility] 2024-08-11 08:20:00 2024-08-11 08:38:20 Outpatient Maria M SESAY SUSHMA [facility] [id number] [facility] 2024-08-09 09:50:00 2024-08-09 09:50:00 Outpatient IVONNE TUTTLE [facility] [id number] [facility] 2024-06-06 13:00:00 2024-06-06 13:00:00 Outpatient R ASHLEY ANTHONY [facility] [id number] [facility] 2024-06-03 09:00:00 2024-06-03 09:00:00 Outpatient R GREG PATEL VIEN [facility] [id number] [facility] 2024-05-10 08:10:00 2024-05-10 08:51:35 Outpatient R IVONNE NAYAK [facility] [id number] [facility] 2024-05-10 08:10:00 2024-05-10 08:51:35 Office Visit Ivonne Nayak [facility] 1.2.840.114 350.1.13.10 4.2.7.2.686 [id number] 225 [id number] [facility] 2024-05-09 00:00:00 2024-05-09 16:30:03 Telephone Ivonne Nayak [facility] 1.2.840.114 350.1.13.10 4.2.7.2.686 [id number] 225 [id number] [facility] 2024-05-09 00:00:00 2024-05-09 08:54:04 Telephone Ivonne Nayak [facility] 1.2.840.114 350.1.13.10 4.2.7.2.686 [id number] 225 [id number] [facility] 2024-03-25 16:00:00 2024-03-25 16:00:00 Outpatient R IVY OCHOA [facility] [id number] [facility] 2024-02-26 09:00:00 2024-02-26 09:35:27 Outpatient R GREG PATEL VIEN [facility] [id number] [facility] 2024-02-26 09:00:00 2024-02-26 09:35:27 Office Visit Greg Patel Cam [facility] 1.2.840.114 350.1.13.10 4.2.7.2.686 [id number] [facility] 2024-02-15 11:00:00 2024-02-15 11:21:28 Outpatient CASIE PEDRAZA LESLEY [facility] [id number] [facility] 2024-02-15 11:00:00 2024-02-15 11:21:28 Office Visit Casie Oneil [facility] 1.2.840.114 350.1.13.10 4.2.7.2.686 [id number] 225 [id number] [facility] 2024-02-15 00:00:00 2024-02-15 00:00:00 Patient Outreach Simona Manzo [facility] 1.2.840.114 350.1.13.10 4.2.7.2.686 [id number] 225 [id number] [facility] 2024-01-30 00:00:00 2024-02-01 09:39:57 Telephone Ivonne Nayak [facility] 1.2.840.114 350.1.13.10 4.2.7.2.686 [id number] 225 [id number] [facility] 2024-02-01 09:10:00 2024-02-01 09:10:00 Outpatient IVONNE TUTTLE [facility] [id number] [facility] 2024-01-27 09:10:00 2024-01-27 09:10:00 Outpatient IVONNE TUTTLE [facility] [id number] [facility] 2024-01-26 00:00:00 2024-01-26 14:22:43 Telephone Ivonne Nayak [facility] 1.2.840.114 350.1.13.10 4.2.7.2.686 [id number] 225 [id number] [facility] 2023-11-04 07:30:00 2023-11-04 07:30:00 Outpatient R IVONNE NAYAK [facility] [id number] [facility] 2023-10-21 15:10:00 2023-10-21 15:35:17 Outpatient R IVONNE NAYAK [facility] [id number] [facility] 2023-10-21 15:10:00 2023-10-21 15:35:17 Office Visit Ivonne Nayak [facility] 1..114 350.1.13.10 4.2.7.2.686 [id number] 225 [id number] [facility] 2023-08-05 08:10:00 2023-08-05 08:40:57 Outpatient R IVONNE NAYAK [facility] [id number] [facility] 2023-08-05 08:10:00 2023-08-05 08:40:57 Office Visit Ivonne Nayak [facility] 1..114 350.1.13.10 4.2.7.2.686 [id number] 225 [id number] [facility] 2023-07-22 14:10:00 2023-07-22 15:06:30 Outpatient R IVONNE NAYAK [facility] [id number] [facility] 2023-07-22 14:10:00 2023-07-22 15:06:30 Office Visit Ivonne Nayak [facility] 1..114 350.1.13.10 4.2.7.2.686 [id number] 225 [id number] [facility] 2023-07-22 00:00:00 2023-07-22 00:00:00 Orders Only Doctor Unassigned, [place] [facility] 1.0.114 350.1.13.10 4.2.7.2.686 [id number] [facility] 2023-06-08 09:00:00 2023-06-08 09:20:00 Office Visit Casie Oneil [facility] 1.840.114 350.1.13.10 4.2.7.2.686 [id number] 225 [id number] [facility] 2023-06-08 09:00:00 2023-06-08 09:00:00 Outpatient CASIE PEDRAZA LESLEY [facility] [id number] [facility] 2023-06-01 13:30:00 2023-06-01 14:13:57 Outpatient IVONNE TUTTLE [facility] [id number] [facility] 2023-06-01 13:30:00 2023-06-01 14:13:57 Office Visit Ivonne Nayak [facility] 1.840.114 350.1.13.10 4.2.7.2.686 [id number] 225 [id number] [facility] 2023-05-18 00:00:00 2023-05-18 00:00:00 Orders Only Doctor Unassigned, [place] [facility] 1.84.114 350.1.13.10 4.2.7.2.686 [id number] [facility] 2023-04-16 15:00:00 2023-04-16 15:00:00 Outpatient R CASIE ONEIL LESLEY [facility] [id number] [facility] 2023-03-30 12:50:00 2023-03-30 13:24:25 Outpatient IVONNE TUTTLE [facility] [id number] [facility] 2023-03-30 12:50:00 2023-03-30 13:24:25 Office Visit Ivonne Nayak [facility] 1.840.114 350.1.13.10 4.2.7.2.686 [id number] 225 [id number] [facility] 2023-02-27 12:50:00 2023-02-27 13:19:56 Outpatient IVONNE TUTTLE [facility] [id number] [facility] 2023-02-27 12:50:00 2023-02-27 13:19:56 Office Visit Ivonne Nayak [facility] 1.2840.114 350.1.13.10 4.2.7.2.686 [id number] 225 [id number] [facility] 2023-01-28 14:50:00 2023-01-28 15:35:03 Outpatient IVONNE TUTTLE [facility] [id number] [facility] 2023-01-28 14:50:00 2023-01-28 15:35:03 Office Visit Ivonne Nayak [facility] 1.2840.114 350.1.13.10 4.2.7.2.686 [id number] 225 [id number] [facility] 2023-01-27 08:10:00 2023-01-27 08:10:00 Outpatient IVONNE TUTTLE [facility] [id number] [facility] 2023-01-21 13:30:00 2023-01-21 14:23:13 Outpatient IVONNE TUTTLE [facility] [id number] [facility] 2023-01-21 13:30:00 2023-01-21 14:23:13 Office Visit Ivonne Nayak [facility] 1.2840.114 350.1.13.10 4.2.7.2.686 [id number] 225 [id number] [facility] 2023-01-21 09:10:00 2023-01-21 09:10:00 Outpatient IVONNE TUTTLE [facility] [id number] [facility] 2023-01-16 00:00:00 2023-01-16 00:00:00 Ivy Raines [facility] 1.2.840.114 350.1.13.10 4.2.7.2.686 [id number] 225 [id number] [facility] 2023-01-02 08:50:00 2023-01-02 09:45:53 Outpatient R IVONNE NAYAK [facility] [id number] [facility] 2023-01-02 08:50:00 2023-01-02 09:45:53 Office Visit Ivonne Nayak [facility] 1.2.840.114 350.1.13.10 4.2.7.2.686 [id number] 225 [id number] [facility] 2023-01-02 00:00:00 2023-01-02 00:00:00 Letter (Out) Ivonne Nayak [facility] 1.2.840.114 350.1.13.10 4.2.7.2.686 [id number] 225 [id number] [facility] 2022-12-22 06:47:00 2022-12-22 23:59:00 Hospital Encounter Kadi RomeroMelody [facility] 1.2.840.114 350.1.13.10 4.2.7.2.686 [id number] [facility] 2022-12-22 00:00:00 2022-12-22 23:59:00 Outpatient R KADI ROMERO [facility] ACO [id number] [facility] 2022-12-19 00:00:00 2022-12-19 00:00:00 Patient Outreach Janny Prater [facility] 1.2.840.114 350.1.13.10 4.2.7.2.686 [id number] 225 [id number] [facility] 2022-12-18 13:40:00 2022-12-18 14:51:11 [facility] [id number] 2022-12-18 13:40:00 2022-12-18 14:51:11 [facility] 1.2.840.114 350.1.13.10 4.2.7.2.686 [id number] 225 [id number] [facility] 2022-12-18 00:00:00 2022-12-18 00:00:00 Orders Only Doctor Unassigned, [place] [facility] 1.2.840.114 350.1.13.10 4.2.7.2.686 [id number] [facility] 2022-12-02 14:00:00 2022-12-02 14:08:05 [facility] [id number] 2022-12-02 14:00:00 2022-12-02 14:08:05 Office Visit [facility] 1.2.840.114 350.1.13.10 4.2.7.2.686 [id number] 225 [id number] [facility] 2022-12-02 00:00:00 2022-12-02 00:00:00 Orders Only Doctor Unassigned, [place] [facility] 1.2.840.114 350.1.13.10 4.2.7.2.686 [id number] [facility] 2022-09-10 14:40:00 2022-09-10 15:00:00 Office Visit [facility] 1.2.840.114 350.1.13.10 4.2.7.2.686 [id number] 225 [id number] [facility] 2022-09-10 14:40:00 2022-09-10 14:40:00 [facility] [id number] [facility] 2022-09-10 00:00:00 2022-09-10 00:00:00 Letter (Out) Lázaro Sushma [facility] 1.2.840.114 350.1.13.10 4.2.7.2.686 [id number] 225 [id number] [facility] 2022-06-16 10:20:00 2022-06-16 11:25:46 Outpatient R CARLYN ZAIDI [facility] [id number] [facility] 2022-06-16 10:20:00 2022-06-16 11:25:46 [facility] 1.2.840.114 350.1.13.10 4.2.7.2.686 [id number] 225 [id number] [facility] 2022-06-16 00:00:00 2022-06-16 00:00:00 Orders Only Doctor Unassigned, [place] [facility] 1.2.840.114 350.1.13.10 4.2.7.2.686 [id number] [facility] 2022-06-16 00:00:00 2022-06-16 00:00:00 Telephone Carlyn zaidi [facility] 1.2.840.114 350.1.13.10 4.2.7.2.686 [id number] 225 [id number] [facility] 2022-06-16 00:00:00 2022-06-16 00:00:00 Letter (Out) Carlyn zaidi [facility] 1.2.840.114 350.1.13.10 4.2.7.2.686 [id number] 225 [id number] [facility] 2022-06-16 00:00:00 2022-06-16 00:00:00 Telephone Alejo Lloyd [facility] 1.2.840.114 350.1.13.10 4.2.7.2.686 [id number] [facility] 2022-06-03 00:00:00 2022-06-03 00:00:00 Telephone Alejo Lloyd [facility] 1.2.840.114 350.1.13.10 4.2.7.2.686 [id number] [facility] 2022-05-30 00:00:00 2022-05-30 00:00:00 Telephone Alejo Lloyd [facility] 1.2.840.114 350.1.13.10 4.2.7.2.686 [id number] [facility] 2022-05-29 00:00:00 2022-05-29 00:00:00 Telephone Alejo Lloyd [facility] 1.2.840.114 350.1.13.10 4.2.7.2.686 [id number] [facility] 2022-05-23 11:00:00 2022-05-23 11:43:52 Out[facility] [id number] [facility] 2022-05-23 11:00:00 2022-05-23 11:43:52 Office Visit Carlyn zaidi [facility] 1.2840.114 350.1.13.10 4.2.7.2.686 [id number] 225 [id number] [facility] 2022-05-23 00:00:00 2022-05-23 00:00:00 Letter (Out) Carlyn zaidi [facility] 1.2.840.114 350.1.13.10 4.2.7.2.686 [id number] [facility] 2022-05-23 00:00:00 2022-05-23 00:00:00 Letter (Out) MaryLoveIvy Radford [facility] 1.2.840.114 350.1.13.10 4.2.7.2.686 [id number] 225 [id number] [facility] 2022-05-21 13:20:00 2022-05-21 13:46:44 Outpatient R LÁZARO [facility] [id number] [facility] 2022-05-21 13:20:00 2022-05-21 13:46:44 Office Visit Lázaro, [facility] 1.2.840.114 350.1.13.10 4.2.7.2.686 [id number] 225 [id number] [facility] 2022-05-21 00:00:00 2022-05-21 00:00:00 Letter (Out) Lázaro [facility] 1.2.840.114 350.1.13.10 4.2.7.2.686 [id number] 225 [id number] [facility] 2022-05-21 00:00:00 2022-05-21 00:00:00 Telephone Alejo Lloyd Romie [facility] 1.2.840.114 350.1.13.10 4.2.7.2.686 [id number] [facility] 2022-03-20 23:51:00 2022-03-21 03:03:00 Emergency X RICARDO SEVERINO [facility] ERT [id number] [facility] 2022-03-20 23:51:00 2022-03-21 03:03:00 Emergency Ricardo Severino [facility] 1.2.840.114 350.1.13.10 4.2.7.2.686 [id number] [facility] 2022-03-20 00:00:00 2022-03-20 00:00:00 Orders Only Doctor Unassigned, [place] [facility] 1.2.840.114 350.1.13.10 4.2.7.2.686 [id number] [facility] 2022-02-28 00:00:00 2022-02-28 00:00:00 Telephone Alejo Lloyd [facility] 1.2.840.114 350.1.13.10 4.2.7.2.686 [id number] [facility] 2022-02-26 00:00:00 2022-02-26 00:00:00 Telephone Hanna Jc [facility] 1.2.840.114 350.1.13.10 4.2.7.2.686 [id number] [facility] 2022-02-24 10:30:00 2022-02-24 11:00:00 Office Visit Alejo Lloyd [facility] 1.2.840.114 350.1.13.10 4.2.7.2.686 [id number] [facility] 2022-02-24 10:30:00 2022-02-24 11:00:00 Office Visit Alejo Lloyd [facility] 1.2.840.114 350.1.13.10 4.2.7.2.686 [id number] [facility] 2022-02-24 10:30:00 2022-02-24 10:30:00 [facility] [id number] [facility] 2022-02-24 10:30:00 2022-02-24 10:30:00 Outpatient [facility] [id number] [facility] 2022-02-24 10:30:00 2022-02-24 10:30:00 Outpatient [facility] [id number] [facility] 2022-01-30 09:00:00 2022-01-30 09:00:00 Outpatient R LÁZARO SUSHMA [facility] [id number] [facility] 2022-01-14 00:00:00 2022-01-14 00:00:00 Telephone Alejo Lloyd [facility] 1.840.114 350.1.13.10 4.2.7.2.686 [id number] [facility] 2022-01-01 00:00:00 2022-01-01 00:00:00 Telephone Lázaro Sushma [facility] 1..114 350.1.13.10 4.2.7.2.686 [id number] [facility] 2021-12-30 08:20:00 2021-12-30 08:40:00 Office Visit Sushma Sesay [facility] 1.840.114 350.1.13.10 4.2.7.2.686 [id number] [facility] 2021-12-30 08:20:00 2021-12-30 08:20:00 Outpatient R LÁZARO SUSHMA [facility] [id number] [facility] 2021-12-30 00:00:00 2021-12-30 00:00:00 Letter (Out) Ivonne Nayak [facility] 1.840.114 350.1.13.10 4.2.7.2.686 [id number] [facility] 2021-12-09 09:00:00 2021-12-09 09:32:26 Outpatient R LÁZARO [facility] [id number] [facility] 2021-12-09 09:00:00 2021-12-09 09:32:26 Office Visit Lázaro Sushma [facility] 1.2.840.114 350.1.13.10 4.2.7.2.686 [id number] [facility] 2021-12-09 09:00:00 2021-12-09 09:32:26 Outpatient R LÁZARO SUSHMA [facility] [id number] [facility] 2021-12-09 00:00:00 2021-12-09 00:00:00 Letter (Out) Lázaro Sushma [facility] 1.2.840.114 350.1.13.10 4.2.7.2.686 [id number] 225 [id number] [facility] 2021-11-29 15:30:00 2021-11-29 15:49:23 Outpatient R IVONNE NAYAK [facility] [id number] [facility] 2021-11-29 15:30:00 2021-11-29 15:49:23 Office Visit Ivonne Nayak [facility] 1.2.840.114 350.1.13.10 4.2.7.2.686 [id number] 225 [id number] [facility] 2021-11-29 00:00:00 2021-11-29 00:00:00 Letter (Out) Ivonne Nayak [facility] 1.2.840.114 350.1.13.10 4.2.7.2.686 [id number] 225 [id number] [facility] 2021-11-27 00:00:00 2021-11-27 00:00:00 Telephone Ivonne Nayak [facility] 1.2.840.114 350.1.13.10 4.2.7.2.686 [id number] 225 [id number] [facility] 2021-11-18 09:00:00 2021-11-18 11:00:05 Office Visit Christiano Hartman [facility] 1.2.840.114 350.1.13.10 4.2.7.2.686 [id number] 134 [id number] [facility] 2021-11-18 09:00:00 2021-11-18 11:00:05 Outpatient R CHRISTIANO HARTMAN [facility] [id number] [facility] 2021-11-18 09:00:00 2021-11-18 09:00:00 Outpatient R CHRISTIANO HARTMAN [facility] [id number] [facility] 2021-11-18 09:00:00 2021-11-18 09:00:00 Outpatient R CHRISTIANO HARTMAN [facility] [id number] [facility] 2021-11-18 09:00:00 2021-11-18 09:00:00 Outpatient R CHRISTIANO HARTMAN [facility] [id number] [facility] 2021-11-18 09:00:00 2021-11-18 09:00:00 Outpatient R CHRISTIANO HARTMAN [facility] [id number] [facility] 2021-11-18 09:00:00 2021-11-18 09:00:00 Outpatient R CHRISTIANO HARTMAN [facility] [id number] [facility] 2021-11-18 09:00:00 2021-11-18 09:00:00 Outpatient R CHRISTIANO HARTMAN [facility] [id number] [facility] 2021-11-18 00:00:00 2021-11-18 00:00:00 Letter (Out) Devan Christiano [facility] 1.20.114 350.1.13.10 4.2.7.2.686 [id number] 134 [id number] [facility] 2021-11-18 00:00:00 2021-11-18 00:00:00 Letter (Out) Devan Christiano [facility] 1.2840.114 350.1.13.10 4.2.7.2.686 [id number] 134 [id number] [facility] 2021-11-18 00:00:00 2021-11-18 00:00:00 Orders Only Doctor Unassigned, [place] [facility] 1.2.840.114 350.1.13.10 4.2.7.2.686 [id number] [facility] 2021-10-30 08:50:00 2021-10-30 09:19:34 Outpatient R IVONNE NAYAK [facility] [id number] [facility] 2021-10-30 08:50:00 2021-10-30 09:19:34 Office Visit Ivonne Nayak [facility] 1.2.840.114 350.1.13.10 4.2.7.2.686 [id number] 225 [id number] [facility] 2021-10-30 00:00:00 2021-10-30 00:00:00 Letter (Out) Ivonne Nayak [facility] 1.2.840.114 350.1.13.10 4.2.7.2.686 [id number] 225 [id number] [facility] 2021-10-09 09:10:00 2021-10-09 10:00:26 Outpatient IVONNE TUTTLE [facility] [id number] [facility] 2021-10-09 09:10:00 2021-10-09 10:00:26 Office Visit Ivonne Nayak [facility] 1..840.114 350.1.13.10 4.2.7.2.686 [id number] 225 [id number] [facility] 2021-10-09 09:10:00 2021-10-09 10:00:26 Outpatient IVONNE TUTTLE [facility] [id number] [facility] 2021-09-13 10:40:00 2021-09-13 11:02:02 Outpatient R YENI REINA [facility] [id number] [facility] 2021-09-13 10:40:00 2021-09-13 11:02:02 Office Visit Yeni Reina [facility] 1.2840.114 350.1.13.10 4.2.7.2.686 [id number] 225 [id number] [facility] 2021-09-13 10:40:00 2021-09-13 11:02:02 Outpatient R YENI REINA [facility] [id number] [facility] 2021-09-13 10:40:00 2021-09-13 11:02:02 Outpatient YENI MORELAND [facility] [id number] [facility] 2021-09-13 00:00:00 2021-09-13 00:00:00 Orders Only Doctor Unassigned, [place] [facility] 1.2840.114 350.1.13.10 4.2.7.2.686 [id number] [id number] [facility] 2021-09-11 13:00:00 2021-09-11 13:23:13 Office Visit Zain Rosas [facility] 1.2840.114 350.1.13.10 4.2.7.2.686 [id number] 225 [id number] [facility] 2021-09-11 13:00:00 2021-09-11 13:23:13 Outpatient R ZAIN ROSAS [facility] [id number] [facility] 2021-09-11 13:00:00 2021-09-11 13:23:13 Outpatient ZAIN SEPULVEDA [facility] [id number] [facility] 2021-09-11 13:00:00 2021-09-11 13:00:00 Outpatient ZAIN SEPULVEDA [facility] [id number] [facility] 2021-09-11 00:00:00 2021-09-11 00:00:00 Letter (Out) Zain Rosas [facility] 1.2.840.114 350.1.13.10 4.2.7.2.686 [id number] 225 [id number] [facility] 2021-08-12 08:49:00 2021-08-12 10:08:00 Emergency X JENNIFER ROCHE [facility] ERT [id number] [facility] 2021-08-12 08:49:00 2021-08-12 10:08:00 Emergency Jennifer Roche [facility] 1.840.114 350.1.13.10 4.2.7.2.686 [id number] [facility] 2021-08-12 08:49:00 2021-08-12 10:08:00 Emergency X NATI ROCHERA [facility] ERT [id number] [facility] 2021-08-12 08:49:00 2021-08-12 10:08:00 Emergency X MELCHORJENNIFER [facility] ERT [id number] [facility] 2021-08-12 08:49:00 2021-08-12 10:08:00 Emergency X NATI ROCHERA [facility] ERT [id number] [facility] 2021-07-05 09:15:00 2021-07-05 12:26:00 Emergency X Jessica ORTEGA [facility] ERT [id number] [facility] 2021-07-05 09:15:00 2021-07-05 12:26:00 Emergency Jessica Ortega [facility] 1..840.114 350.1.13.10 4.2.7.2.686 [id number] [facility] 2021-07-01 08:30:00 2021-07-01 08:53:10 Outpatient R IVONNE NAYAK [facility] [id number] [facility] 2021-07-01 08:21:58 2021-07-01 08:53:10 Office Visit Ivonne Nayak [facility] 1.2.840.114 350.1.13.10 4.2.7.2.686 [id number] 225 [id number] [facility] 2021-07-01 00:00:00 2021-07-01 00:00:00 Letter (Out) Ivonne Nayak [facility] 1.2.840.114 350.1.13.10 4.2.7.2.686 [id number] 225 [id number] [facility] 2021-06-12 08:12:56 2021-06-12 09:00:36 Office Visit Ivonne Nayak [facility] 1.2.840.114 350.1.13.10 4.2.7.2.686 [id number] 225 [id number] [facility] 2021-06-12 08:30:00 2021-06-12 08:30:00 Outpatient R IVONNE NAYAK [facility] [id number] [facility] 2021-06-12 00:00:00 2021-06-12 00:00:00 Orders Only Doctor Unassigned, [place] [facility] 1.2.840.114 350.1.13.10 4.2.7.2.686 [id number] [facility] 2021-06-12 00:00:00 2021-06-12 00:00:00 Letter (Out) Ivonne Nayak [facility] 1.2.840.114 350.1.13.10 4.2.7.2.686 [id number] [facility] 2021-05-20 10:37:41 2021-05-20 11:18:33 Office Visit Ivonne Nayak [facility] 1.2.840.114 350.1.13.10 4.2.7.2.686 [id number] 225 [id number] [facility] 2021-05-20 10:50:00 2021-05-20 10:50:00 Outpatient IVONNE TUTTLE [facility] [id number] [facility] 2021-05-20 00:00:00 2021-05-20 00:00:00 Letter (Out) Ivonne Nayak Orlin [facility] 1.2.840.114 350.1.13.10 4.2.7.2.686 [id number] 225 [id number] [facility] 2021-05-20 00:00:00 2021-05-20 00:00:00 Letter (Out) Malini Ivonne Ordaz [facility] 1.2.840.114 350.1.13.10 4.2.7.2.686 [id number] [facility] 2021-05-17 10:50:00 2021-05-17 10:50:00 Outpatient IVONNE TUTTLE [facility] [id number] [facility] 2021-04-30 15:18:22 2021-04-30 16:18:22 Nurse Visit Therapy, [facility] Singer [facility] 1.2840.114 350.1.13.10 4.2.7.2.686 [id number] 053 [id number] [facility] 2021-04-30 15:18:22 2021-04-30 16:18:22 Nurse Visit Therapy, Adc [facility] Infusion Singer [facility] 1.2840.114 350.1.13.10 4.2.7.2.686 [id number] [facility] 2021-04-30 15:30:00 2021-04-30 15:30:00 Outpatient HARMAN ANDRADE [facility] [id number] [facility] 2021-04-25 13:20:00 2021-04-25 13:20:00 Outpatient SUSHMA BROWN [facility] [id number] [facility] 2021-04-24 09:03:00 2021-04-24 12:06:00 Emergency Harman Escalona [facility] 1.2.840.114 350.1.13.10 4.2.7.2.686 [id number] 084 [id number] [facility] 2021-04-24 09:03:00 2021-04-24 12:06:00 Emergency Singer [facility] 1.2.840.114 350.1.13.10 4.2.7.2.686 [id number] [facility] 2021-04-08 11:12:30 2021-04-08 12:13:30 Office Visit Yeni Reina [facility] 1.2.840.114 350.1.13.10 4.2.7.2.686 [id number] 225 [id number] [facility] 2021-04-08 11:20:00 2021-04-08 11:20:00 Outpatient R YENI REINA [facility] [id number] [facility] 2021-03-25 08:33:34 2021-03-25 09:37:23 Office Visit Yeni Reina [facility] 1.2.840.114 350.1.13.10 4.2.7.2.686 [id number] [facility] 2021-03-25 08:40:00 2021-03-25 08:40:00 Outpatient R YENI REINA [facility] [id number] [facility] 2021-03-25 08:40:00 2021-03-25 08:40:00 Outpatient R YENI REINA [facility] [id number] [facility] 2021-03-15 08:56:12 2021-03-15 10:15:11 Office Visit Yeni Reina [facility] 1.2.840.114 350.1.13.10 4.2.7.2.686 [id number] [facility] 2021-03-15 09:00:00 2021-03-15 09:00:00 Outpatient YENI MORELAND [facility] [id number] [facility] 2021-03-15 00:00:00 2021-03-15 00:00:00 Letter (Out) Yeni Reina [facility] 1.2.840.114 350.1.13.10 4.2.7.2.686 [id number] 225 [id number] [facility] 2021-02-05 00:00:00 2021-02-05 00:00:00 Telephone Alejo Lloyd [facility] 1.2840.114 350.1.13.10 4.2.7.2.686 [id number] [facility] 2021-02-01 00:00:00 2021-02-01 00:00:00 Telephone Ivonne Nayak [facility] 1.2840.114 350.1.13.10 4.2.7.2.686 [id number] 225 [id number] [facility] 2020-12-10 12:37:56 2020-12-10 13:10:49 Office Visit Ivonne Nayak [facility] 1.2840.114 350.1.13.10 4.2.7.2.686 [id number] 225 [id number] [facility] 2020-12-10 12:50:00 2020-12-10 12:50:00 Outpatient IVONNE TUTTLE [facility] [id number] [facility] 2020-11-21 00:00:00 2020-11-21 00:00:00 Telephone Alejo Lloyd [facility] 1.2840.114 350.1.13.10 4.2.7.2.686 [id number] [facility] 2020-11-09 00:00:00 2020-11-09 00:00:00 Telephone Alejo Lloyd [facility] 1.2.840.114 350.1.13.10 4.2.7.2.686 [id number] 147 [id number] [facility] 2020-11-08 10:00:00 2020-11-08 10:00:00 Outpatient R CHRISTIANO HARTMAN [facility] [id number] [facility] 2020-11-08 00:00:00 2020-11-08 00:00:00 Letter (Out) Doctor Unassigned, [place] [facility] 1.2840.114 350.1.13.10 4.2.7.2.686 [id number] [facility] 2020-10-22 14:40:00 2020-10-22 14:40:00 Outpatient R ARAMIS YORDAN [facility] [id number] [facility] 2020-10-22 09:22:20 2020-10-22 09:38:15 Nurse Visit Nurse, Charline Carpio Yordan Self [facility] 1.2840.114 350.1.13.10 4.2.7.2.686 [id number] [facility] 2020-10-22 00:00:00 2020-10-22 00:00:00 Letter (Out) Yordan Self [facility] 1.2840.114 350.1.13.10 4.2.7.2.686 [id number] [facility] 2020-10-19 00:00:00 2020-10-19 00:00:00 Telephone Alejo Lloyd Romie [facility] 1.2840.114 350.1.13.10 4.2.7.2.686 [id number] 147 [id number] [facility] 2020-10-10 00:00:00 2020-10-10 00:00:00 Telephone Alejo Lloyd Rafael Romie [facility] 1.2.840.114 350.1.13.10 4.2.7.2.686 [id number] [facility] 2020-10-04 10:00:00 2020-10-04 10:00:00 Outpatient CHRISTIANO LE [facility] [id number] [facility] 2020-10-02 10:30:00 2020-10-02 10:30:00 Outpatient SEBASTIEN LANDEROS [facility] [id number] [facility] 2020-10-02 00:00:00 2020-10-02 00:00:00 Orders Only Doctor Unassigned, [place] [facility] 1.2.840.114 350.1.13.10 4.2.7.2.686 [id number] [facility] 2020-09-28 00:00:00 2020-09-28 00:00:00 Telephone Claudia Johnson [facility] 1.2.840.114 350.1.13.10 4.2.7.2.686 [id number] 147 [id number] [facility] 2020-09-26 00:00:00 2020-09-26 00:00:00 Telephone Alejo Lloyd Rafael Roime [facility] 1.2.840.114 350.1.13.10 4.2.7.2.686 [id number] [facility] 2020-09-26 00:00:00 2020-09-26 00:00:00 Telephone Ivonne Nayak [facility] 1.2.840.114 350.1.13.10 4.2.7.2.686 [id number] 225 [id number] [facility] 2020-09-25 00:00:00 2020-09-25 00:00:00 Letter (Out) Ivonne Nayak [facility] 1.2.840.114 350.1.13.10 4.2.7.2.686 [id number] 225 [id number] [facility] 2020-09-24 13:40:00 2020-09-24 13:40:00 Outpatient R YORDAN SELF [facility] [id number] [facility] 2020-09-24 09:33:13 2020-09-24 09:53:13 Nurse Visit Nurse, Yordan Duarte [facility] 1.2.840.114 350.1.13.10 4.2.7.2.686 [id number] [facility] 2020-09-24 00:00:00 2020-09-24 00:00:00 Letter (Out) Yordan Self [facility] 1.2.840.114 350.1.13.10 4.2.7.2.686 [id number] [facility] 2020-09-24 00:00:00 2020-09-24 00:00:00 Telephone Ivonne Nayak [facility] 1.2.840.114 350.1.13.10 4.2.7.2.686 [id number] 225 [id number] [facility] 2020-09-18 00:00:00 2020-09-18 00:00:00 Telephone Ivonne Nayak [facility] 1.2.840.114 350.1.13.10 4.2.7.2.686 [id number] 225 [id number] [facility] 2020-09-14 00:00:00 2020-09-14 00:00:00 Telephone Claudia Johnson [facility] 1.2.840.114 350.1.13.10 4.2.7.2.686 [id number] 147 [id number] [facility] 2020-09-14 00:00:00 2020-09-14 00:00:00 Telephone Claudia Johnson [facility] 1.2.840.114 350.1.13.10 4.2.7.2.686 [id number] 147 [id number] [facility] 2020-09-11 00:00:00 2020-09-11 00:00:00 Telephone Ivonne Nayak [facility] 1.2.840.114 350.1.13.10 4.2.7.2.686 [id number] 225 [id number] [facility] 2020-09-10 10:31:00 2020-09-10 11:01:00 Office Visit Alejo Lloyd Romie [facility] 1.2.840.114 350.1.13.10 4.2.7.2.686 [id number] [facility] 2020-09-10 08:01:22 2020-09-10 08:55:15 Office Visit Ivonne Nayak [facility] 1.2.840.114 350.1.13.10 4.2.7.2.686 [id number] 225 [id number] [facility] 2020-09-10 08:10:00 2020-09-10 08:10:00 Outpatient R IVONNE NAYAK [facility] [id number] [facility] 2020-09-10 00:00:00 2020-09-10 00:00:00 Letter (Out) Ivonne Nayak [facility] 1.2.840.114 350.1.13.10 4.2.7.2.686 [id number] 225 [id number] [facility] 2020-09-10 00:00:00 2020-09-10 00:00:00 Letter (Out) Ivonne Nayak [facility] 1.2.840.114 350.1.13.10 4.2.7.2.686 [id number] 225 [id number] [facility] 2020-09-10 00:00:00 2020-09-10 00:00:00 Letter (Out) Ross, Russelldiana Grubbs [facility] 1.2840.114 350.1.13.10 4.2.7.2.686 [id number] [facility] 2020-09-07 10:00:00 2020-09-07 10:00:00 Outpatient R ALEJO LLOYD [facility] [id number] [facility] 2020-09-03 13:34:57 2020-09-03 14:19:15 Office Visit Yeni Reina [facility] 1.2840.114 350.1.13.10 4.2.7.2.686 [id number] [facility] 2020-09-03 13:40:00 2020-09-03 13:40:00 Outpatient R YENI REINA [facility] [id number] [facility] 2020-08-27 08:50:00 2020-08-27 08:50:00 Outpatient IVONNE TUTTLE [facility] [id number] [facility] 2020-08-21 09:25:47 2020-08-21 09:46:57 Nurse Visit NurseJazz [facility] 1.20.114 350.1.13.10 4.2.7.2.686 [id number] 225 [id number] 2020-08-21 09:25:47 2020-08-21 09:46:57 Nurse Visit NurseJazz Amy C [facility] 1.2840.114 350.1.13.10 4.2.7.2.686 [id number] 225 [id number] [facility] 2020-08-21 09:30:00 2020-08-21 09:30:00 Outpatient IVONNE TUTTLE [facility] [id number] [facility] 2020-06-20 12:49:20 2020-06-20 13:58:11 [place] [facility] 1.2.840.114 350.1.13.10 4.2.7.2.686 [id number] 225 [id number] [facility] 2020-06-20 12:49:20 2020-06-20 13:58:11 Office Visit [place] Ivonne [facility] 1.2840.114 350.1.13.10 4.2.7.2.686 [id number] 225 [id number] 2020-06-20 13:10:00 2020-06-20 13:10:00 Outpatient IVONNE TUTTLE [facility] [id number] [facility] 2020-05-21 08:23:28 2020-05-21 08:32:31 Nurse Visit Nurse, Lkj Joselitojosé miguel Nayak Ivonne [facility] 1.2840.114 350.1.13.10 4.2.7.2.686 [id number] [facility] 2020-05-21 08:20:00 2020-05-21 08:20:00 Outpatient IVONNE TUTTLE [facility] [id number] [facility] 2020-05-21 00:00:00 2020-05-21 00:00:00 Orders Only Doctor Unassigned, [place] [facility] 1.2840.114 350.1.13.10 4.2.7.2.686 [id number] [facility] 2020-05-14 13:30:00 2020-05-14 13:30:00 Outpatient IVONNE TUTTLE [facility] [id number] [facility] 2020-05-06 15:21:00 2020-05-06 19:19:00 Emergency X CHEN SHIELDS [facility] ERT [id number] [facility] 2020-05-06 15:21:00 2020-05-06 19:19:00 Emergency Chen Shields [facility] 1.2.840.114 350.1.13.10 4.2.7.2.686 [id number] [id number] [facility] 2020-05-06 00:00:00 2020-05-06 00:00:00 Orders Only Doctor Unassigned, [place] [facility] 1.2.840.114 350.1.13.10 4.2.7.2.686 [id number] [facility] 2020-04-05 21:49:00 2020-04-06 00:26:00 Emergency Jeison Lui Andrea [facility] 1.2.840.114 350.1.13.10 4.2.7.2.686 [id number] [facility] 2020-02-20 09:02:57 2020-02-20 09:22:57 Nurse Visit Nurse, Ivonne Wesley [facility] 1.2840.114 350.1.13.10 4.2.7.2.686 [id number] 225 [id number] [facility] 2020-02-20 09:00:00 2020-02-20 09:00:00 Outpatient IVONNE TUTTLE [facility] [id number] [facility] 2020-02-15 07:35:19 2020-02-15 08:48:51 Office Visit Ivonne Nayak [facility] 1.20.114 350.1.13.10 4.2.7.2.686 [id number] 225 [id number] [facility] 2020-02-15 07:50:00 2020-02-15 07:50:00 Outpatient IVONNE TUTTLE [facility] [id number] [facility] 2019-12-23 15:30:00 2019-12-23 15:30:00 Outpatient R IVONNE NAYAK [facility] [id number] [facility] 2019-12-23 12:47:38 2019-12-23 13:07:38 [place] I[place]ne Ordaz [facility] 1.2.840.114 350.1.13.10 4.2.7.2.686 [id number] [facility] 2019-12-22 01:51:19 2019-12-22 02:57:00 Emergency X DISLA, CHRISTIANO [facility] ERT [id number] [facility] 2019-12-22 01:51:19 2019-12-22 02:57:00 Emergency Christiano Disla [facility] 1.2.840.114 350.1.13.10 4.2.7.2.686 [id number] [facility] 2019-12-22 00:00:00 2019-12-22 00:00:00 Telephone JamaalIovnne Hernandez [facility] 1.2.840.114 350.1.13.10 4.2.7.2.686 [id number] 225 [id number] [facility] 2019-10-04 21:24:15 2019-10-04 23:11:00 Emergency X RICARDO SEVERINO [facility] ERT [id number] [facility] 2019-10-04 21:24:15 2019-10-04 23:11:00 Emergency Ricardo Severino S [facility] 1.2.840.114 350.1.13.10 4.2.7.2.686 [id number] [facility] 2019-10-04 14:30:42 2019-10-04 15:36:54 Office Visit Zain Rosas [facility] 1.2.840.114 350.1.13.10 4.2.7.2.686 [id number] [facility] 2019-10-04 00:00:00 2019-10-04 00:00:00 Letter (Out) Ivonne Nayak [facility] 1.2.840.114 350.1.13.10 4.2.7.2.686 [id number] 225 [id number] [facility] 2019-10-04 00:00:00 2019-10-04 00:00:00 Letter (Out) Ivonne Nayak [facility] 1.2.840.114 350.1.13.10 4.2.7.2.686 [id number] 225 [id number] [facility] 2019-10-04 00:00:00 2019-10-04 00:00:00 Orders Only Doctor Unassigned, [place] [facility] 1.2.840.114 350.1.13.10 4.2.7.2.686 [id number] [facility] [facility] 2019-05-20 13:25:10 2019-05-20 14:25:03 Office Visit Ivonne aNyak [facility] [id number] [id number] [id number] [id number] 225 [id number] [facility] 2019-05-20 00:00:00 2019-05-20 00:00:00 Orders Only Doctor Unassigned, [place] [facility] [id number] [id number] [id number] [id number] [facility] 2019-05-20 00:00:00 2019-05-20 00:00:00 Letter (Out) Ivonne Nayak [facility] [id number] [id number] [id number] [id number] [facility] 2019-04-15 09:56:15 2019-04-15 10:37:17 Office Visit Ivonne Nayak [facility] [id number] [id number] [id number] [id number] [facility] 2019-04-13 00:00:00 2019-04-13 00:00:00 Telephone Ivonne Nayak [facility] 1.2.840.114 350.1.13.10 4.2.7.2.686 [id number] [facility] Results Test Description Test Time Test Comments Results Result Co [facility] [id number] 18:23:00* Test Item Value Reference Range Interpretation [...] cloudy Lab Interpretation (test cod e = 46105-5) [facility] [id number] 18:23:00* Test Item Value Reference Range Interpretation [...] cloudy Lab Interpretation (test cod e = 01364-8) Abnormal [facility] URINALYSIS W SPECIFIC [id number] 18:23:00* Test Item Value Reference Range Interpretation [...] cloudy Lab Interpretation (test cod e = 71743-7) Abnormal [facility] MOLECULAR [id number] 20:50:59* Test Item Value Reference Range Interpretation Comme nts POCT Molecular FluA (test co de = 08157-3) Negative Negative POCT Molecular FluB (test co de = 63928-9) Negative Negative Lab Interpretation (test cod e = 92945-2) Normal [facility] MOLECULAR [id number] 20:50:59* Test Item Value Reference Range Interpretation Comme nts POCT Molecular FluA (test co de = 13623-6) Negative Negative POCT Molecular FluB (test co de = 89933-0) Negative Negative Lab Interpretation (test cod e = 41218-9) Normal [facility] GRP A STREP (MOLECULAR)2022-05-23 16:43:00* Test Item Value Reference Range Interpretation Comme nts POCT GP A STREP (test code = 18182-0) negative Negative - Negative Lab Interpretation (test cod e = 51202-4) [facility] GRP A STREP (MOLECULAR)2022-05-23 16:43:00* Test Item Value Reference Range Interpretation Comme nts POCT GP A STREP (test code = 63091-3) negative Negative - Negative Lab Interpretation (test cod e = 81173-3) [facility] GRP A STREP (MOLECULAR)2022-05-23 16:43:00* Test Item Value Reference Range Interpretation Comme nts POCT GP A STREP (test code = 77067-8) negative Negative - Negative Lab Interpretation (test cod e = 96516-9) [facility]. METABOLIC PANEL ([id number])2022-03-21 07:04:30* Test Item Value Reference Range Interpretation Comme nts NA (test code = 3656167625) 140 mmol/L 135-145 K (test code = 4234484727) 3.9 mmol/L 3.5-5 CL (test code = 9406291465) 102 mmol/L 98-108 CO2 TOTAL (test code = 9342327173) 26 mmol/L 23-31 AGAP (test code = 9348675708) 2-16 BUN (test code = 3315316551) 10 mg/dL 7-23 GLUCOSE (test code = 6297538290) 100 mg/dL 70-110 CREATININE (test code = 6738248568) 0.56 mg/dL 0.5-1.04 TOTAL BILI (test code = 1293241263) 0.4 mg/dL 0.1-1.1 CALCIUM (test code = 0170269643) 10.1 mg/dL 8.6-10.6 T PROTEIN (test code = 1446646367) 7.5 g/dL 6.3-8.2 ALBUMIN (test code = 1293025134) 5.8 g/dL 3.5-5 H ALK PHOS (test code = 9154544803) 66 U/L 34-122 ALTv (test code = 1742-6) 12 U/L 5-35 AST(SGOT) (test code = 2353976975) 21 U/L 13-40 MITESH (test code = [...] imaging tests). Lab Interpretation (test code = 20495-4) Abnormal [facility] WITH [id number] 06:52:47* Test Item Value Reference Range Interpretation Comme nts WBC (test code = 6690-2) See_Comment [Automated [employer]] The system which generated this result transmitted reference range: 4.50 - 13.50 10*3/?L. The reference range was not used to interpret this result as normal/abnormal. RBC (test code = 789-8) See_Comment [Automated [employer]] The system which generated this result [...] 33.6 g/dL 32-36 RDW-SD (test code = 10755-8) 41.7 fL 38.5-49 RDW-CV (test code = 788-0) 12.8 % 11.5-14 PLT (test code = 777-3) See_Comment [Automated [employer]] The system which generated this result transmitted reference range: 135 - 361 10*3/?L. The reference range was not used to interpret this result as normal/abnormal. MPV (test code = 19552-1) 10.3 fL 9.4-13.3 NRBC/100 WBC (test code = 0804520677) See_Comment [Automated me ssage] The system which generated this result transmitted reference range: 0.0 - 10.0 /100 WBCs. The reference range was not used to interpret this result as normal/abnormal. NRBC x10^3 (test code = 7579384619) See_Comment [Automated me ssage] The system which generated this result transmitted reference range: 10*3/?L. The reference range was not used to interpret this result as normal/abnormal. GRAN MAT (NEUT) % (test code = 770-8) 46.3 % IMM GRAN % (test code = 8915457599) 0.20 % LYMPH % (test code = 736-9) 47.6 % MONO % (test code = 5905-5) 5.4 % EOS % (test code = 713-8) 0.2 % BASO % (test code = 706-2) 0.3 % GRAN MAT x10^3(ANC) (test code = 4522391991) 3.02 10*3/uL 1.5-10.3 IMM GRAN x10^3 (test code = 0923453922) 0-0.06 LYMPH x10^3 (test code = 731-0) 3.10 10*3/uL 0.7-7.4 MONO x10^3 (test code = 742-7) 0.35 10*3/uL 0-0.5 EOS x10^3 (test code = 711-2) 0-0.4 BASO x10^3 (test code = 704-7) 0-0.1 [facility] [id number] 04:59:00* Test Item Value Reference Range Interpretation Comme nts POCT PREG (test code = 1605) Negative On board controls acceptable with C Line (test code = 3574) Positive POCT PREG LOT # (test code = 3575) [id number] POCT PREG TEST DATE ( test code = 3576) 06/30/2023 Lab Interpretation (test cod e = 21325-6) Normal [facility], [id number] 03:49:03* Test Item Value Reference Range Interpretation Comme nts IGE (test code = 40335-7) <2 See_Comment REFERENCE INTERV AL: Immunoglobulin E, Serum Access complete set of age- and/or gender-specific reference intervals for this test in the [facility] Test Directory (ALICE App).Performed By: [facility] [employer] [place] [id number] Director: Jessica Mitchell MD [Automated message] The system which generated this result transmitted reference range: <=537. The reference range was not used to interpret this result as normal/abnormal. [facility] M [id number] 15:45:31 * Test Item Value Reference Range Interpretation Comme nts IgA (test code = 2899837017) 16 mg/dL 70-312 L IgG (test code = 4943978240) 425 mg/dL 636-1600 L IgM (test code = 3437927883) 22 mg/dL 56-352 L Lab Interpretation (test cod e = 24391-4) Abnormal [facility]"
[2024-08-24] MEDS ORDERED: CEFTRIAXONE 1000 MG/VIAL ONE (02:45)
[2024-08-24] MEDS ORDERED: ONDANSETRON 4 MG/2 ML VIAL ONE ×2 (02:45→07:20)
[2024-08-24] MEDS ORDERED: KETOROLAC 30 MG/ML INJ ONE (02:46)
[2024-08-24] MEDS ORDERED: NA CHLORIDE 0.9% 500 ML ONE ×2 (02:46→08:25)
[2024-08-24] MEDS ORDERED: HYDROCORTISONE SUC 100 MG INJ ONE (02:46)
[2024-08-24] MEDS ORDERED: NA CHLORIDE 0.9% 50 ML ONE (02:47)
[2024-08-24] MEDS ORDERED: ACETAMINOPHEN 160 MG/5 ML UCUP ONE (02:47)
[2024-08-24] MEDS ORDERED: NA CHLORIDE 0.9% 1,000 ML ONE ×2 (02:48→05:46)
[2024-08-24 03:28] LABS: Urine Bacteria 20-50 /HPF (<20); Urine Bilirubin NEGATIVE (Negative); Urine Blood Negative (Negative); Urine Clarity Extremely Turbid (Clear); Urine Color Yellow (Yellow); Urine Culture Reflex Order NOT NEEDED; Urine Glucose NEGATIVE (Negative); Urine Ketones 2+ (Negative); Urine Micro Reflex YN NO BILL MICROSCOPIC; Urine Mucus 3+ /HPF (None Seen); Urine Nitrite NEGATIVE (Negative); Urine Protein 1+ (Negative); Urine RBC <5 /HPF (None Seen); Urine Urobilinogen 3+ (Normal); Urine WBC <5 /HPF (<5)
[2024-08-24 04:17] LABS: Absolute Lymphocytes (CBC) 0.7 K/uL (0.7-4.9); Absolute Monocytes 0.1 K/uL (0.1-1.3); Absolute Neutrophil 1.7 K/uL (1.8-8.0); Basophils % 0.4 % (0-1.3); Eosinophils % 0.2 % (0-4.4); Hematocrit 39.9 % (36.0-45.0); Hemoglobin 13.9 g/dL (12.0-15.0); Lymphocytes % 27.4 % (15.3-44.8); MCH 30.4 pg (27.0-35.0); MCHC 34.8 g/dL (32.0-36.0); MCV 87.6 fL (80-100); MPV 9.4 fL (7.6-11.3); Monocytes % 4.9 % (3.3-12.3); Neutrophils % 67.1 % (41.7-73.7); Nucleated Red Blood Cells % 0.4 % (0-0); Platelets 100 thou/uL (152-406); RBC Red Blood Cell Count 4.56 M/uL (3.86-4.86); Red Cell Distribution Width 12.4 % (12.1-15.2)
[2024-08-24 04:19] LABS: PT Prothrombin Time 12.8 SECONDS (9.4-12.5); PTT, Activated Partial Thromb 28.1 SECONDS (24.3-36.9); Protime INR 1.15
[2024-08-24 04:41] LABS: Albumin/Globulin Ratio 1.6 (1.1-1.8); Anion Gap 8.7 mEq/L (5.0-15.0); Bilirubin Total 0.7 mg/dL (0.2-1.0); Globulin 2.5 g/dL (2.3-3.5); Protein, Total 6.5 g/dL (6.4-8.2)
[2024-08-24 04:42] LABS: SARS-CoV-2 Antigen CONTROL BLUE LINE VIS/BG OK; SARS-CoV-2 Antigen Rapid Res Negative (Negative)
[2024-08-24 04:43] LABS: Potassium 3.7 mEq/L (3.5-5.1)
[2024-08-24 04:59] LABS: Monoscreen NEG (NEG)
[2024-08-24 05:02] LABS: Blood Morphology Comment NOT SEEN (NOT SEEN); Platelet Estimate ADEQ; White Blood Cell Scan OK (OK)
[2024-08-24] MEDS ORDERED: ALBUMIN HUMAN 25% 100 ML IV ONE (05:20)
[2024-08-24 05:37] LABS: HBsAG Nonreactive Report Report; Hepatitis B Core IgM Nonreactive (Nonreactive); Hepatitis B surface AG Interp. Nonreactive (Nonreactive); Hepatitis C Virus Ab Nonreactive (Nonreactive)
[2024-08-24] MEDS ORDERED: VANCOMYCIN 1 GM/VIAL ONE (05:45)
[2024-08-24] MEDS ORDERED: NA CHLORIDE 0.9% 250 ML ONE (05:46)
--- NOTE | 2024-08-24 05:46 | ER ---
Nurse's Notes [facility] Name: Ana Paula Nielson Age: 19 yrs Sex: Female : 2005 Arrival Date: 08/24/2024 Time: 01:44 Bed 16 Private MD: Diagnosis: Acute febrile illness, neutropenia;Severe sepsis without septic shock Presentation: 08/24 02:02 Chief complaint: Parent and/or Guardian states: NAUSEA/VOMITING PAIN ALL OVER SINCE kj2 LAST THURSDAY. Coronavirus screen: Client denies travel out of the [place] in the last 14 days. Ebola Screen: No symptoms or risks identified at this time. Initial Sepsis Screen: Does the patient meet any 2 criteria? No. Patient's initial sepsis screen is negative. Does the patient have a suspected source of infection? No. Patient's initial sepsis screen is negative. Risk Assessment: Do you want to hurt yourself or someone else? Patient reports no desire to harm self or others. Onset of symptoms was August 18, 2024. 02:02 Method Of Arrival: Ambulatory kj2 02:02 Acuity: GERARD 3 kj2 Triage Assessment: 02:05 General: Appears in no apparent distress. uncomfortable, Behavior is cooperative. Pain: kj2 Complains of pain in GENERALIZED Pain currently is 8 out of 10 on a pain scale. 02:08 GI: Reports nausea, vomiting. 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 - Infectious Disease History:: Denies. - Social history:: Smoking status: Patient/guardian denies using tobacco, the patient reports quitting approximately 1 years ago. - Family history:: not pertinent. Screenin:07 [facility] ED Fall Risk Assessment (Adult) History of falling in the last 3 months, kj2 including since admission No falls in past 3 months (0 pts) Confusion or Disorientation No (0 pts) Intoxicated or Sedated No (0 pts) Impaired Gait No (0 pts) Mobility Assist Device Used No (0 pt) Altered Elimination No (0 pt) Score/Fall Risk Level 0 - 2 = Low Risk Maintained a safe environment, Hourly rounding (assess needs \T\ fall precautionary measures) done. Abuse screen: Denies threats or abuse. Denies injuries from another. Nutritional screening: No deficits noted. Tuberculosis screening: No symptoms or risk factors identified. Assessment: 02:05 General: SEE TRIAGE. kj2 03:05 Reassessment: Patient appears in no apparent distress at this time. Patient and/or kj2 family updated on plan of care and expected duration. Pain level reassessed. Patient is alert, oriented x 3, equal unlabored respirations, skin warm/dry/pink. 04:00 Reassessment: Patient appears in no apparent distress at this time. Patient and/or kj2 family updated on plan of care and expected duration. Pain level reassessed. Patient is alert, oriented x 3, equal unlabored respirations, skin warm/dry/pink. 05:00 Reassessment: Patient appears in no apparent distress at this time. Patient and/or kj2 family updated on plan of care and expected duration. Pain level reassessed. Patient is alert, oriented x 3, equal unlabored respirations, skin warm/dry/pink. 06:00 Reassessment: Patient appears in no apparent distress at this time. Patient and/or kj2 family updated on plan of care and expected duration. Pain level reassessed. Patient is alert, oriented x 3, equal unlabored respirations, skin warm/dry/pink. 06:40 Reassessment: VANCOMYCIN STOPPED DUE TO PATIENT COMPLAINTS OF SUDDEN ITCHING. kj2 07:00 Reassessment: Patient appears in no apparent distress at this time. Patient and/or kj2 family updated on plan of care and expected duration. Pain level reassessed. Patient is alert, oriented x 3, equal unlabored respirations, skin warm/dry/pink. 07:00 Reassessment: See MAR, pt c/o itching to head. . aa5 07:20 Reassessment: Patient is alert, oriented x 3, equal unlabored respirations, skin aa5 warm/dry/pink. 07:21 Reassessment: RN ATTEMPT TO CALL NURSE TO NURSE REPORT, NO ANSWER X 2. kj2 08:06 Reassessment: Attempted to call report to nurse at [facility], nurse currently aa5 unavailable, nurse to call back. . 08:34 Reassessment: Report was given to nurse Julissa at [facility]. . aa5 08:46 Reassessment: Awaiting EMS for transfer. . aa5 09:00 Reassessment: Patient is alert, oriented x 3, equal unlabored respirations, skin aa5 warm/dry/pink. Vital Signs: 02:02 Temp 100.8; Weight 44.45 kg; Height 5 ft. 3 in. ; Pain 8/10; kj2 02:06 BP 88 / 54; Pulse 119; Resp 20; Pulse Ox 100% ; kj2 03:05 BP 89 / 74; Pulse 99; Resp 18; Pulse Ox 97% on R/A; kj2 04:00 BP 83 / 46; Pulse 89; Resp 16; Pulse Ox 100% on R/A; kj2 05:00 BP 83 / 42; Pulse 78; Resp 18; Pulse Ox 100% ; kj2 06:02 BP 100 / 62; Pulse 76; Pulse Ox 97% on R/A; kj2 06:45 BP 93 / 62; Pulse 73; Resp 18; Pulse Ox 98% ; kj2 07:32 BP 92 / 65; Pulse 66; Resp 18 S; Temp 98.2(O); Pulse Ox 99% on R/A; aa5 08:25 BP 83 / 49; Pulse 57; Resp 18 S; Pulse Ox 99% on R/A; aa5 08:45 BP 102 / 74; Pulse 53; Resp 18 S; Temp 98(O); Pulse Ox 99% on R/A; aa5 08:55 BP 100 / 71; Pulse 60; Resp 16 S; Pulse Ox 100% on R/A; aa5 02:02 Body Mass Index 17.36 (44.45 kg, 160.02 cm) - Percentile 2.7 % kj2 02:02 Pain Scale: Adult kj2 08:25 MD notified of decreased BP aa5 [place] Coma Score: 05:41 Eye Response: spontaneous(4). Motor Response: obeys commands(6). Verbal Response: sp4 oriented(5). Total: 15. ED Course: 01:48 Patient arrived in ED. jj6 01:51 Chico Castorena MD is Attending Physician. sp4 01:52 Sarah Mancuso, RN is Primary Nurse. kj2 02:04 Triage completed. kj2 02:07 Patient has correct armband on for positive identification. Bed in low position. Call kj2 light in reach. Side rails up X 1. Adult w/ patient. Provided Education on: CALL LIGHT. 02:08 No provider procedures requiring assistance completed. kj2 02:28 Radiology exam delayed due to IV insertion attempt and/or patient not having ls3 appropriate IV at this time. 03:16 Urinalysis W/Microscopic Sent. kj2 03:16 Test, Urine Sent. kj2 03:30 Inserted saline lock: 22 gauge in left forearm, using aseptic technique. Blood al5 collected. Flushed with 10 mL NS. 03:38 Blood Culture Adult (2) Sent. kj2 03:49 CT Chest Abdomen Pelvis W/O Contrast In Process Unspecified. EDMS 07:00 Report given to FLAVIA GERARD. kj2 07:06 MOT received for patient. ty 07:15 paper work for nurse to nurse handed to Nurse. ty 08:34 EMS called for patient transport. ty 09:00 Patient transferred, IV remains in place. aa5 Administered Medications: 07:27 Discontinued: vancomycin1 grams IVPB once over 2 hrs kj2 03:00 Drug: Acetaminophen PO Liquid 500 mg PO once; not to exceed 1000 mg Route: PO; kj2 05:04 Follow up: Response: No adverse reaction kj2 03:20 Drug: Rocephin - Rocephin (cefTRIAXone) IVPB 1 grams IVPB once over 30 mins; (mix in 50 kj2 mL NS) Route: IVPB; Infused Over: 30 mins; Site: left antecubital; 05:05 Follow up: Response: No adverse reaction kj2 03:30 Drug: NS 0.9% IV (30 ml/kg) 30 ml/kg IV at bolus once; Sepsis Protocol; to be given as kj2 a bolus over 90 minutes Route: IV; Rate: bolus; Site: left antecubital; 06:01 Follow up: IV Status: Completed infusion; IV Intake: 1336ml kj2 03:39 Drug: Solu-CORTEF IVP 100 mg IVP once Route: IVP; Site: left antecubital; kj2 05:04 Follow up: Response: No adverse reaction kj2 03:39 Drug: Ondansetron IVP 8 mg IVP once; over 2 minutes Route: IVP; Site: left antecubital; kj2 05:04 Follow up: Response: No adverse reaction kj2 04:22 Not Given (Patient Refused): [id number] mg IVP once kj2 05:29 Drug: Albumin IVPB 25 grams 100 ml IVPB once; (Note: Albumin 25% concentration) Volume: kj2 100 ml; Route: IVPB; Site: left antecubital; 06:03 Follow up: IV Status: Completed infusion; IV Intake: 100ml kj2 06:00 Drug: vancoMYCIN IVPB 1 grams IVPB once over 2 hrs Route: IVPB; Infused Over: 2 hrs; kj2 Site: left antecubital; 07:00 Follow up: Pt c/o itching to head, vancomycin was stopped and MD was notified. aa5 07:00 Follow up: IV Intake: 125ml aa5 06:01 Drug: NS 0.9% IV 1000 ml IV at 125 ml/hr Per protocol; to be given as a bolus over 60 kj2 minutes Route: IV; Rate: 125 ml/hr; Site: left antecubital; 09:00 Follow up: IV Status: Infusion continued upon transfer aa5 07:20 Drug: Ondansetron IVP 4 mg IVP once; over 2 minutes Route: IVP; Site: left forearm; aa5 07:30 Follow up: Response: No adverse reaction aa5 07:20 Drug: diphenhydrAMINE IVP 25 mg IVP once Route: IVP; Site: left forearm; aa5 07:30 Follow up: Response: No adverse reaction aa5 07:30 Drug: Dextromethorphan-Guaifenesin PO Liquid 10 mg-100 mg/5 mL 15 ml PO once Route: PO; aa5 08:34 Follow up: Response: No adverse reaction aa5 08:28 Drug: NS 0.9% IV 500 ml 500 ml IV at 1 bolus once; to be given as a bolus over 30 aa5 minutes Volume: 500 ml; Route: IV; Rate: 1 bolus; Site: left forearm; 09:00 Follow up: IV Status: Completed infusion; IV Intake: 500ml aa5 Medication: 02:07 VIS not applicable for this client. kj2 Intake: 06:01 IV: 1336ml; Total: 1336ml. kj2 06:03 IV: 100ml; Total: 1436ml. kj2 07:00 IV: 125ml; Total: 1561ml. aa5 09:00 IV: 500ml; Total: 2061ml. aa5 Outcome: 05:45 ER care complete, transfer ordered by . sp4 09:00 Transferred by ground EMS to [facility], Transfer form aa5 completed. X-rays sent w/ patient. Note: Report given to [facility] 09:00 Condition: stable 09:00 Instructed on the need for transfer, Demonstrated understanding of instructions, 09:05 Patient left the ED. aa5 Signatures: Dispatcher [employer] EDMS Elysia Reaves, RN RN aa5 Akin Nicholson 3 More Gonzalez6 Chico Castorena MD MD sp4 Darryl Thompson Amanda, RN RN al5 Sarah Mancuso RN RN kj2 Corrections: (The following items were deleted from the chart) 05:41 05:41 PMHx: depressive disorder; sp4 sp4 05:41 05:41 PMHx: Anxiety; sp4 sp4 05:41 05:41 PSHx: ear tubes; sp4 sp4 07:35 07:25 Reassessment: jayy2 aa5
--- NOTE | 2024-08-24 05:46 | EDPHYS ---
Physician Documentation [facility] Name: Ana Paula Nielson Age: 19 yrs Sex: Female : 2005 Arrival Date: 08/24/2024 Time: 01:44 Bed 16 Private MD: ED Physician Chico Castorena HPI: 08/24 02:26 This 19 yrs old Female presents to ER via Ambulatory with complaints of sp4 Nausea/Vomiting, Cough, Fever, Weakness, Mother is concerned that daughter has been poisoned and brought in the cake that she feels is contaminated.. 05:38 19-year-old female with history of, Common Variable immunodeficiency CVID presents with sp4 persistent fever for the past 6 days.. 05:40 Patient at this time reports nausea vomiting, cough, fever, generalized weakness and sp4 malaise. Patient was here 08/19/2024 and had workup that was unremarkable and then again 08/22/2024 and had an extensive workup that did not determine the source of the fever. . DICTATING MACHINE TYPIST: 03:41 Not kj2 Historical: - Allergies: 07:27 No Known Allergies; kj2 - PMHx: 05:41 Common Variable Immunodeficiency; sp4 - Immunization history:: Adult Immunizations unknown. - Infectious Disease History:: Denies. - Social history:: Smoking status: Patient/guardian denies using tobacco, the patient reports quitting approximately 1 years ago. - Family history:: not pertinent. ROS: 05:41 Constitutional: Positive fever positive chills positive weakness positive malaise sp4 positive nausea, positive vomiting, positive cough 05:41 All other systems are negative, Exam: 05:41 Constitutional: This is a well developed, well nourished patient who is awake, alert, sp4 patient is ill-appearing and emotionally upset but nontoxic-appearing Head/Face: Normocephalic, atraumatic. Eyes: Pupils equal round and reactive to light, extra-ocular motions intact. Lids and lashes normal. Conjunctiva and sclera are not injected. Cornea within normal limits. Periorbital areas with no swelling, redness, or edema. ENT: Nares patent. No nasal discharge, no septal abnormalities noted. Tympanic membranes are normal and external auditory canals are clear. Oropharynx with no redness, swelling, or masses, exudates, or evidence of obstruction, uvula midline. Mucous membranes moist. Neck: Trachea midline, no thyromegaly or masses palpated, and no cervical lymphadenopathy. Supple, full range of motion without nuchal rigidity, or vertebral point tenderness. Chest/axilla: Normal chest wall appearance and motion. Nontender with no deformity. No lesions are appreciated. Cardiovascular: Regular rate and rhythm with a normal S1 and S2. No gallops, murmurs, or rubs. Normal PMI, no JVD. No pulse deficits. Respiratory: Lungs have equal breath sounds bilaterally, clear to auscultation and percussion. No rales, rhonchi or wheezes noted. No increased work of breathing, no retractions or nasal flaring. Abdomen/GI: Soft, with normal bowel sounds. No distension or tympany. No guarding or rebound. No evidence of tenderness throughout. Back: No spinal tenderness. No costovertebral tenderness. Skin: Warm, dry with normal turgor. Normal color with no rashes, no lesions, and no evidence of cellulitis. MS/ Extremity: Pulses equal, no cyanosis. Neurovascular intact. Full, normal range of motion. Neuro: Awake and alert, GCS 15, oriented to person, place, time, and situation. Cranial nerves II-XII grossly intact. Motor strength 5/5 in all extremities. Sensory grossly intact. Psych: Awake, alert, with orientation to person, place and time. Behavior, mood, and affect are within normal limits 05:48 ECG was reviewed by the Attending Physician. EKG at 0 441 normal sinus rhythm rate sp4 85. Vital Signs: 02:02 Temp 100.8; Weight 44.45 kg; Height 5 ft. 3 in. ; Pain 8/10; kj2 02:06 BP 88 / 54; Pulse 119; Resp 20; Pulse Ox 100% ; kj2 03:05 BP 89 / 74; Pulse 99; Resp 18; Pulse Ox 97% on R/A; kj2 04:00 BP 83 / 46; Pulse 89; Resp 16; Pulse Ox 100% on R/A; kj2 05:00 BP 83 / 42; Pulse 78; Resp 18; Pulse Ox 100% ; kj2 06:02 BP 100 / 62; Pulse 76; Pulse Ox 97% on R/A; kj2 06:45 BP 93 / 62; Pulse 73; Resp 18; Pulse Ox 98% ; kj2 07:32 BP 92 / 65; Pulse 66; Resp 18 S; Temp 98.2(O); Pulse Ox 99% on R/A; aa5 08:25 BP 83 / 49; Pulse 57; Resp 18 S; Pulse Ox 99% on R/A; aa5 08:45 BP 102 / 74; Pulse 53; Resp 18 S; Temp 98(O); Pulse Ox 99% on R/A; aa5 08:55 BP 100 / 71; Pulse 60; Resp 16 S; Pulse Ox 100% on R/A; aa5 02:02 Body Mass Index 17.36 (44.45 kg, 160.02 cm) - Percentile 2.7 % kj2 02:02 Pain Scale: Adult kj2 08:25 MD notified of decreased BP aa5 Aleksander Coma Score: 05:41 Eye Response: spontaneous(4). Motor Response: obeys commands(6). Verbal Response: sp4 oriented(5). Total: 15. MDM: 01:52 Medical Screening Exam initiated sp4 05:31 ED course: EXAM: CT Chest, Abdomen and Pelvis Without Intravenous Contrast CLINICAL sp4 HISTORY: The patient is 19 years old and is Female; Cough, possible pneumonia. TECHNIQUE: Axial computed tomography images of the chest, abdomen and pelvis without intravenous contrast. Sagittal and coronal reformatted images were created and reviewed. This CT exam was performed using one or more of the following dose reduction techniques: automated exposure control, adjustment of the mA and/or kV according to patient size, and/or use of iterative reconstruction technique. COMPARISON: CTAbdomen pelvis with IV contrast 08/21/2024. FINDINGS: CHEST: Lungs: Unremarkable. No mass. No consolidation or ground glass opacities. Pleural space: Unremarkable. No significant effusion. No pneumothorax. Heart: Unremarkable. No cardiomegaly. No significant pericardial effusion. No significant coronary artery calcifications. ABDOMEN: Liver: Unremarkable. Gallbladder and bile ducts: Unremarkable. No calcified stones. No ductal dilation. Pancreas: Unremarkable. No ductal dilation. Spleen: Unremarkable. No splenomegaly. Adrenals: Unremarkable. No mass. Kidneys and ureters: Unremarkable. No obstructing stones. No hydronephrosis. Stomach and bowel: Mildly dilated central small bowel loops with air-fluid levels, suggesting ileus. No findings to suggest colitis. PELVIS: Appendix: No findings to suggest acute appendicitis. Bladder: Unremarkable. No stones. Reproductive: 2.4 cm left ovarian corpus luteum again visualized. Uterus is unremarkable as visualized. Uterus is present. CHEST, ABDOMEN and PELVIS: Intraperitoneal space: Moderate free fluid in the cul-de-sac, likely physiologic. No free air. Bones/joints: Minimal thoracic scoliosis. No acute fracture visualized. No dislocation. Soft tissues: Unremarkable. Vasculature: Unremarkable. No aortic aneurysm. Lymph nodes: Unremarkable. No enlarged lymph nodes. IMPRESSION: 1. Mildly dilated central small bowel loops with air-fluid levels, suggesting ileus. 2. 2.4 cm left ovarian corpus luteum again visualized. Free fluid in the cul-de-sac is likely physiologic. 3. No acute findings in the chest. Electronically signed by: Fanta De La O MD 08/24/2024 05:27 AM MACERATOR OPERATOR . 05:43 Differential diagnosis: Nonspecific abd pain, gastritis, cholecystitis, pancreatitis, sp4 viral gastroenteritis, gastroenteritis. Data reviewed: vital signs, nurses notes, lab test result(s), EKG, radiologic studies, CT scan. Consideration of Admission/Observation Escalation of care including admission/observation considered. ED course: Patient has leukopenia WBC count 2.6 , CT is unremarkable. This is patient's fourth visit for persistent fever cough and other symptoms. Patient has not been on her IVIG for over a year. Patient at this time warrants transfer to [facility] where she was managed in the past for common variable immunodeficiency CVID. Patient is stable for transfer with EMS.. 08/24 02:24 Order name: Blood Culture Adult (2) [facility] 08/24 01:52 Order name: Influenza Screen (a \T\ B); Complete Time: 03:44 4 08/24 01:52 Order name: Test, Urine; Complete Time: 03:44 4 08/24 01:52 Order name: Urinalysis W/Microscopic; Complete Time: 03:44 [facility] 08/24 02:24 Order name: CBC with Diff; Complete Time: 05:15 sp4 08/24 02:24 Order name: CMP; Complete Time: 05:15 [facility] 08/24 02:24 Order name: Lactate w/ 2H reflex if indic.; Complete Time: 05:15 [facility] 08/24 02:24 Order name: Protime (+inr); Complete Time: 05:15 sp4 08/24 02:24 Order name: Ptt, Activated; Complete Time: 05:15 sp4 08/24 02:25 Order name: [place] Screen Profile; Complete Time: 05:15 sp4 08/24 02:25 Order name: SARS RAPID; Complete Time: 05:15 sp4 08/24 02:25 Order name: CRP; Complete Time: 05:15 sp4 08/24 02:37 Order name: Hepatitis Panel; Complete Time: 05:46 sp4 08/24 02:37 Order name: HIV Ag/Ab Combo; Complete Time: 06:01 sp4 08/24 04:21 Order name: CBC Smear Scan; Complete Time: 05:15 EDMS 08/24 02:27 Order name: CT Chest Abdomen Pelvis W/O Contrast; Complete Time: 06:44 sp4 08/24 02:24 Order name: Cardiac monitoring; Complete Time: 05:03 sp4 08/24 02:24 Order name: EKG - Nurse/Tech; Complete Time: 05:03 sp4 08/24 02:24 Order name: IV Saline Lock - Large Bore; Complete Time: 05:03 sp4 08/24 02:24 Order name: Labs collected and sent; Complete Time: 03:38 sp4 08/24 02:24 Order name: O2 Per Protocol; Complete Time: 05:04 sp4 08/24 02:24 Order name: O2 Sat Monitoring; Complete Time: 05:04 sp4 08/24 02:24 Order name: Vital Signs; Complete Time: 05:04 sp4 EC:41 Rate is 85 beats/min. Rhythm is regular, Normal Sinus Rhythm. QRS [place] is Normal. ND sp4 interval is normal. QRS interval is normal. QT interval is normal. No Q waves. T waves are Normal. No ST changes noted. Clinical impression: Normal ECG. Interpreted by me. Reviewed by me. Administered Medications: 07:27 Discontinued: vancomycin1 grams IVPB once over 2 hrs kj2 03:00 Drug: Acetaminophen PO Liquid 500 mg PO once; not to exceed 1000 mg Route: PO; kj2 05:04 Follow up: Response: No adverse reaction kj2 03:20 Drug: Rocephin - Rocephin (cefTRIAXone) IVPB 1 grams IVPB once over 30 mins; (mix in 50 kj2 mL NS) Route: IVPB; Infused Over: 30 mins; Site: left antecubital; 05:05 Follow up: Response: No adverse reaction kj2 03:30 Drug: NS 0.9% IV (30 ml/kg) 30 ml/kg IV at bolus once; Sepsis Protocol; to be given as kj2 a bolus over 90 minutes Route: IV; Rate: bolus; Site: left antecubital; 06:01 Follow up: IV Status: Completed infusion; IV Intake: 1336ml kj2 03:39 Drug: Solu-CORTEF IVP 100 mg IVP once Route: IVP; Site: left antecubital; kj2 05:04 Follow up: Response: No adverse reaction kj2 03:39 Drug: Ondansetron IVP 8 mg IVP once; over 2 minutes Route: IVP; Site: left antecubital; kj2 05:04 Follow up: Response: No adverse reaction kj2 04:22 Not Given (Patient Refused): [id number] mg IVP once kj2 05:29 Drug: Albumin IVPB 25 grams 100 ml IVPB once; (Note: Albumin 25% concentration) Volume: kj2 100 ml; Route: IVPB; Site: left antecubital; 06:03 Follow up: IV Status: Completed infusion; IV Intake: 100ml kj2 06:00 Drug: vancoMYCIN IVPB 1 grams IVPB once over 2 hrs Route: IVPB; Infused Over: 2 hrs; kj2 Site: left antecubital; 07:00 Follow up: Pt c/o itching to head, vancomycin was stopped and MD was notified. aa5 07:00 Follow up: IV Intake: 125ml aa5 06:01 Drug: NS 0.9% IV 1000 ml IV at 125 ml/hr Per protocol; to be given as a bolus over 60 kj2 minutes Route: IV; Rate: 125 ml/hr; Site: left antecubital; 09:00 Follow up: IV Status: Infusion continued upon transfer aa5 07:20 Drug: Ondansetron IVP 4 mg IVP once; over 2 minutes Route: IVP; Site: left forearm; aa5 07:30 Follow up: Response: No adverse reaction aa5 07:20 Drug: diphenhydrAMINE IVP 25 mg IVP once Route: IVP; Site: left forearm; aa5 07:30 Follow up: Response: No adverse reaction aa5 07:30 Drug: Dextromethorphan-Guaifenesin PO Liquid 10 mg-100 mg/5 mL 15 ml PO once Route: PO; aa5 08:34 Follow up: Response: No adverse reaction aa5 08:28 Drug: NS 0.9% IV 500 ml 500 ml IV at 1 bolus once; to be given as a bolus over 30 aa5 minutes Volume: 500 ml; Route: IV; Rate: 1 bolus; Site: left forearm; 09:00 Follow up: IV Status: Completed infusion; IV Intake: 500ml aa5 Disposition Summary: 08/24/24 05:45 Transfer Ordered Notes: Transfer Location: [facility] sp4 Reason: Higher level of care sp4 Condition: Stable sp4 Problem: new sp4 Symptoms: have improved sp4 Accepting Physician: Accepting MD FLORES (08/24/24 09:05) aa5 Diagnosis - Acute febrile illness, neutropenia sp4 - Severe sepsis without septic shock sp4 Forms: - Medication Reconciliation Form sp4 - SBAR form sp4 Critical care time excluding procedures: 05:49 Critical care time: Bedside Care: 32 minutes, Consultation: 12 minutes, Family sp4 Intervention: 12 minutes. Total time: 56 minutes Signatures: Dispatcher [employer] EDElysia Rivera RN RN aa5 Chico Castorena MD MD sp4 Sarah Mancuso RN RN kj2 Corrections: (The following items were deleted from the chart) 02:25 02:25 C-REACTIVE PROTEIN+C.LAB.BRZ ordered. EDMS EDMS 02:58 02:25 Chest Abdomen Pelvis W Con+CT.RAD.BRZ ordered. EDMS EDMS 05:41 05:41 PMHx: depressive disorder; sp4 sp4 05:41 05:41 PMHx: Anxiety; sp4 sp4 05:41 05:41 PSHx: ear tubes; sp4 sp4 07:31 02:24 Accucheck ordered. sp4 aa5 09:05 05:45 Accepting MD FLORES sp4 aa5
--- NOTE | 2024-08-24 06:04 | RAD REPORT ---
EXAM: CT Chest, Abdomen and Pelvis Without Intravenous Contrast CLINICAL HISTORY: The patient is 19 years old and is Female; Cough, possible pneumonia. TECHNIQUE: Axial computed tomography images of the chest, abdomen and pelvis without intravenous co ntrast. Sagittal and coronal reformatted images were created and reviewed. This CT exam was performed using one or more of the following dose reduction techniques: automated exposure control, adjustment of the mA and/or kV according to patient size, and/or use of iterative reconstruction technique. COMPARISON: CT Abdomen pelvis with IV contrast 08/21/2024. FINDINGS: CHEST: Lungs: Unremarkable. No mass. No consolidation or ground glass opacities. Pleural space: Unremarkable. No significant effusion. No pneumothorax. Heart: Unremarkable. No cardiomegaly. No significant pericardial effusion. No significant c oronary artery calcifications. ABDOMEN: Liver: Unremarkable. Gallbladder and bile ducts: Unremarkable. No calcified stones. No ductal dilation. Pancreas: Unremarkable. No ductal dilation. Spleen: Unremarkable. No splenomegaly. Adrenals: Unremarkable. No mass. Kidneys and ureters: Unremarkable. No obstructing stones. No hydronephrosis. Stomach and bowel: Mildly dilated central small bowel loops with air-fluid levels, suggesting ile us. No findings to suggest colitis. PELVIS: Appendix: No findings to suggest acute appendicitis. Bladder: Unremarkable. No stones. Reproductive: 2.4 cm left ovarian corpus luteum again visualized. Uterus is unremarkable as visualized. Uterus is present. CHEST, ABDOMEN and PELVIS: Intraperitoneal space: Moderate free fluid in the cul-de-sac, likely physiologic. No free air. Bones/joints: Minimal thoracic scoliosis. No acute fracture visualized. No dislocation. Soft tissues: Unremarkable. Vasculature: Unremarkable. No aortic aneurysm. Lymph nodes: Unremarkable. No enlarged lymph nodes. IMPRESSION: 1. Mildly dilated central small bowel loops with air-fluid levels, suggesting ileus. 2. 2.4 cm left ovarian corpus luteum again visualized. Free fluid in the cul-de-sac is likely physi ologic. 3. No acute findings in the chest. Electronically signed by: Fanat De La O MD 08/24/2024 05:27 AM [facility] [place] Due to temporary technical issues with the PACS/Connexient reporting system, reports are being sharri d by the in-house radiologist without review as a courtesy to ensure prompt reporting the interpreting radiologist is fully responsible for the content of the report. Transcribed Date/Time: 08/24/2024 6:04 AM
[2024-08-24] MEDS ORDERED: GUAIFENESIN/DM 5 ML UCUP ONE ×2 (07:20→07:21)
[2024-08-24] MEDS ORDERED: DIPHENHYDRAMINE 50 MG/ML VIAL ONE (07:20)
[2024-08-24 09:35] VITALS: O2SAT 99
[2024-08-24 09:38] VITALS: BP 102/74; TEMP 98
--- NOTE | 2024-08-26 13:42 | EKG ---
Test Date: 2024-08-24 Test Time: 04:41:34 Key Holder: DEIDRA MEASUREMENT RESULTS: Intervals: Rate: 85 HI: 132 QRSD: 84 QT: 360 QTc: 428 [place]: P: 81 HI: 132 QRS: 78 T: 86 INTERPRETIVE STATEMENTS: Normal sinus rhythm Normal ECG Compared to ECG 09/29/2023 02:45:42 No significant changes Electronically Signed On 08-26-24 13:37:17 COLLECTION SYSTEMS ADMINISTRATOR by Rodrigo Patel
== END 2024-08-24 09:05 | disposition short-term general hospital (02) ==
LOC: ER 01:44
DX: D83.9 Common variable immunodeficiency, unspecified (principal); D70.9 Neutropenia, unspecified; R65.20 Severe sepsis without septic shock; R50.9 Fever, unspecified; Z11.52 Encounter for screening for COVID-19
CPT/HCPCS: 36415; 71250; 74176; 80053; 80074; 81001; 81025; 83605; 85025; 85610; 85730; 86140; 86308; 87040; 87389; 87804; 87811; 93005; 99285; J0696; J1200; J1720; J2405; J7030; J7040; J7050; P9047

== ENCOUNTER 2024-10-09 14:35 | Emergency (ER) | payer SELFPAY ==
--- OUTSIDE RECORDS SUMMARY | 2024-10-09 14:47 | XMS REPORT | Continuity of Care Document ---
Author Name Unknown Address [address] [facility] [address] [place] [address] [facility] Address [address] [facility] [place] [address] Care Team Providers Care Compliance Vice President Name Role Phone IVONNE NAYAK Primary Care Physician IVONNE Brooks Attending Clinician Unavailab yi Diseases-Rust, Infectious Attending Clinician [phone] LEI GUTIERREZ Attending Clinician Unavailab Khoa MANUEL, Rebeca Attending Clinician [phone] Neo Del Rio MD Attending Clinician [phone] Lei Gutierrez MD Attending Clinician [phone] Melonie Scott RN Attending Clinician Unavailable JENNIFER ROCHE Attending Clinician Unavailab JENNIFER Mueller Attending Clinician UnavailJennifer Jones DO Attending Clinician [phone] Josselyn Duran RN Attending Clinician UnavailSushma Costello Attending Clinician +[phone] SUSHMA SESAY Attending Clinician UnavailASHLEY Kelsey Attending Clinician Unavailable GREG PATEL Attending Clinician Unavailable GREG PATEL Attending Clinician Unavailable Ivonne Nayak PA-C Attending Clinician [phone] IVY TAVARES Attending Clinician CASIE Schuster Attending Clinician Unavailable CASIE ONEIL Attending Clinician Unavailable Jovany [facility], Simona Attending Clinician Steve Nayak PA-C, Ivonne Ordaz Attending Clinician [phone] Doctor Unassigned, [place] Attending Clinician U ruth Tavares MD, Ivy Attending Clinician + [phone] Kadi Romero MD Attending Clinician +- [phone] KADI ROMERO Attending Clinician Unavailgricelda Prater [facility], Janny Martinez Attending Clinician [phone] Sushma Thornton Attending Clinician +[phone] ALEJO LLOYD Attending Clinici an Unavailable Alejo Lloyd MD Attending Clin ician RICARDO SEVERINO Attending Clinician Unavailable Mere PACRicardo S Attending Clinician [phone] Hanna Jc MD Attending Clinician + [phone] Christiano Hartman MD Attending Clinician +[phone] CHRISTIANO HARTMAN Attending Clinician Unavailable YENI REINA Attending Clinician Unavail able Yeni Reina MD Attending Clinician [phone] Zain Rosas MD Attending Clinician [phone] ZAIN ROSAS Attending Clinician Unavailable Jessica ORTEGA Attending Clinician Unavailable Jessica Jarvis Attending Clinician [phone] Therapy, Adc Covid Infusion Attending Clinician Unavailable Harman Escalona DO Attending Clinician [phone] HARMAN ESCALONA Attending Clinician Unavailable YORDAN SELF Attending Clinician Lesvia altman NurseCharline Care Attending Clinician U Yordan Crandall MD Attending Clinician + SEBASTIEN SOLANO Attending Clinician Unavailable Elizabeth MANUEL, Claudia Dowell Attending Clinician NurseJazz Attending Clinician Unavailable CHEN SHIELDS Attending Clinician Unavailable Chen Shields MD Attending Clinician Hu HEBERTP, Jeison B Attending Clinician [phone] CHRISTIANO DISLA Attending Clinician Unavailable Christiano Franklin Attending Clinician [phone] NEO DEL RIO Admitting Clinician Unavailable Neo Del Rio MD Admitting Clinician +[phone] KADI ROMERO Admitting Clinician UnavailCHEN Mclaughlin Admitting Clinician Unavailable CHRISTIANO DISLA Admitting Clinician Unavailable Payers Payer Name Policy Type Policy Number Effective Date Expirati on Date Source [employer] MEDICA[employer] [id number] 2015 00:00:00 Problems Condition Name Condition Details Condition Category Status Onset Date Resolution Date Last Treatment Date Treating Clinician Comments Source CSD (cat scratch disease) CSD (cat scratch disease) Disease Active 2023-08 00:00: 00 [facility] Hepatocell ular injury Hepatocell ular injury Disease Active 2023-08 00:00: 00 [facility] Other neutropeni a Other neutropeni a Disease Active 2023-08 00:00: 00 [facility] Lethargy Lethargy Disease Active 2023-08 00:00: 00 [facility] Leukopenia Leukopenia Disease Active 2023-08 00:00: 00 [facility] Sepsis Sepsis Disease Active 2023-08 00:00: 00 [facility] Recurrent infections Recurrent infections Disease Active 1- 00:00: 00 [facility] Recurrent infections Recurrent infections Disease Active 1- 00:00: 00 [facility] 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 -17 00:00: 00 [facility] 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 6- 00:00: 00 [facility] Acute hypotensio n Acute hypotensio n Disease Resolve d 2023-08 2- 00:00: 00 2024-08-25 00:00:00 2024-08-25 11:46:44 [facility] Dysmenorrh ea Dysmenorrh ea Disease Resolve d 3-12 00:00: 00 2024-08-25 00:00:00 2024-08-25 11:46:08 [facility] Counseling for initiation of control method Counseling for initiation of control method Disease Resolve d 3-12 00:00: 00 2024-08-25 00:00:00 2024-08-25 11:46:06 [facility] Weight loss Weight loss Disease Resolve d 1-11 00:00: 00 2024-08-24 00:00:00 2024-08-24 12:11:41 [facility] Allergies, Adverse Reactions, Alerts Allergy Name Allergy Type Status Severity Reaction(s) Onset Date Inactive Date Treating Clinician Comments Source VANCOMYC IN DRUG INGREDI Active ITCHING 2023-08 00:00: 00 [facility] Vancomyc in Propensi ty to adverse reaction s Active Itching 2023-08 00:00: 00 [facility] NO KNOWN ALLERGIE S Drug Class Active [facility] Social History Social Habit Start Date Stop Date Quantity Comments Source Gender identity [facility] Sexual orientation U [facility] Alcoholic beverage intake 2024-08-29 00:00:00 2024-08-29 00:00:00 Lifetime non-drinker (finding) [facility] History of Social function 2024-02-15 00:00:00 2024-02-15 00:00:00 [facility] Alcohol intake 2023-10-21 00:00:00 2023-10-21 00:00:00 Lifetime non-drinker (finding) [facility] Tobacco use and exposure 2023-06-08 00:00:00 2023-06-08 00:00:00 User of smokeless tobacco [facility] Tobacco Comment 2023-06-08 00:00:00 2023-06-08 00:00:00 Vapes [facility] Exposure to SARS-CoV-2 (event) 2023-01-18 00:00:00 2023-01-28 14:47:00 Not sure [facility] Sex assigned at 2004 00:00:00 2005 00:00:00 [facility] Smoking Status Start Date Stop Date Source Never smoked tobacco [facility] Medications Ordered Medication Name Filled Medication Name Start Date Stop Date Current Medication? Ordering Clinician Indication Dosage Frequency Signature (SIG) Comments Components Source enoxaparin (LOVENOX) injection 30 mg 2023-08 15:00: 00 08-31 00:19 :14 No 30mg 30 mg, Subcutaneo us, DAILY, First dose (after last modificati on) on Thu08/30/24 at 0900, Until Discontinu ed, Routine [facility] KCL 20 mEq/15 mL solution 40 mEq 2023-08 14:45: 00 08-30 15:18 :00 No 40meq 40 mEq, Oral, ONCE, 1 dose, On Thu08/30/24 at 0845, Routine [facility] doxycycline hyclate (Vibramycin ) capsule 100 mg 2023-08 12:00: 00 09-04 11:59 :00 Yes 100mg 100 mg, Oral, Q12HA2, 10 doses, First dose on Thu08/30/24 at 0600, Last dose on Thu09/03/24 at 1800, AAKASH, Reason for Anti-Infec tive: Documented Infection, Documented Infection Site: Skin / Soft Tissue, Duration of Therapy: Other (see Comments) [facility] azithromyci n 250 mg tablet 2023-08 00:00: 00 Yes [id number] 250mg Take 1 tablet by mouth in the morning. [facility] doxycycline hyclate 100 mg capsule 2023-08 00:00: 00 Yes [id number] 100mg Take 1 capsule by mouth every 12 (twelve) hours. [facility] azithromyci n (ZITHROMAX) tablet 250 mg 2023-08 21:45: 00 09-02 14:59 :00 Yes 250mg 250 mg, Oral, DAILY, 4 doses, First dose on Thu08/29/24 at 1545, Last dose on Thu09/01/24 at 0900, AAKASH, Reason for Anti-Infec tive: Documented Infection, Documented Infection Site: Skin / Soft Tissue, Duration of Therapy: Other (see Comments) [facility] doxycycline (VIBRAMYCIN ) 100 mg in NaCl 0.9% (NS) 100 mL MINI-BAG 2023-08 19:30: 00 08-29 21:33 :15 No 100mg 100 mg, IV Piggyback, Q12H ABX, 20 doses, First dose on Thu08/28/24 at 1330, Last dose on Thu09/07/24 at 0130, Administer over 60 Minutes, 100 mL, Reason for Anti-Infec tive: Empiric Therapy for Suspected Infection, Empiric Therapy Site: Blood, Duration of therapy: As Defined in Treatment / Therapy Plan [facility] azithromyci n (ZITHROMAX) 500 mg in NaCl 0.9% (NS) 250 mL VIAL-MATE IV piggyback 2023-08 19:30: 00 08-29 21:33 :15 No 500mg 500 mg, IV Piggyback, Q24H ABX, 10 doses, First dose on Thu08/28/24 at 1330, Last dose on Thu09/06/24 at 1330, Administer over 60 Minutes, 250 mL, Reason for Anti-Infec tive: Empiric Therapy for Suspected Infection, Empiric Therapy Site: Blood, Duration of therapy: As Defined in Treatment / Therapy Plan, Restricted use approved by: KIKI BOLIVAR, ADULT ID [facility] KCL 20 mEq/15 mL solution 40 mEq 2023-08 14:30: 00 08-28 14:48 :00 No 40meq 40 mEq, Oral, ONCE, 1 dose, On Thu08/28/24 at 0830, Routine [facility] proMETHazin e (PHENERGAN) 25 mg in NS 50 mL IV piggyback (CNR) 2023-08 21:59: 55 08-31 00:19 :14 No 25mg 25 mg, IV Piggyback, at 200 mL/hr Administer over 15 Minutes, Q4HPRN, Starting on Thu08/26/24 at 1559, Until Thu08/30/24 at 1819, Routine, N/V unresponsi ve to Ondansetro n [facility] linezolid in dextrose 5% (ZYVOX) 600 mg/300 mL iv infusion 600 mg 2023-08 19:30: 00 08-28 17:40 :32 No 600mg 600 mg, IV Infusion, Q12H ABX, 14 doses, First dose on Thu08/26/24 at 1330, Last dose on Thu09/02/24 at 0130, 300 mL, Reason for Anti-Infec tive: Empiric Therapy for Suspected Infection, Empiric Therapy 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, Duration of therapy: As Defined in Treatment / Therapy Plan [facility] morpHINE injection 2 mg 2023-08 17:28: 00 08-26 17:32 :00 No 2mg 2 mg, Slow IV Push, ONCE, 1 dose, On Thu08/26/24 at 1130, Routine [facility] morpHINE injection 2 mg 2023-08 17:04: 59 08-28 18:19 :42 No 2mg 2 mg, Slow IV Push, QDAILYPRN, Starting on Thu08/26/24 at 1104, Until Thu08/28/24 at 1219, Routine, Pain (scale 7-10), LP [facility] acetaminoph en (TYLENOL) tablet 650 mg 2023-08 12:04: 18 08-31 00:19 :14 No 650mg 650 mg, Oral, Q6HPRN, Starting on Thu08/26/24 at 0604, Until Thu08/30/24 at 1819, Routine, Temp > 38 C [facility] acetaminoph en (TYLENOL) 160 mg/5 mL oral liquid 650 mg 2023-08 11:30: 00 08-26 11:27 :00 No 650mg 650 mg, Oral, ONCE, 1 dose, On Thu08/26/24 at 0530, Routine [facility] lactated ringers IV infusion 1,000 mL 2023-08 02:30: 00 08-28 13:35 :17 No 1000mL at 42 mL/hr, 1,000 mL, IV Infusion, CONTINUOUS , Starting on Darling 08/25/24 at 2030, Until Thu08/28/24 at 0735, Routine [facility] acetaminoph en (OFIRMEV) IV piggyback 1,000 mg 2023-08 23:30: 00 08-25 23:03 :00 No 1000mg 1,000 mg, IV Piggyback, at 400 mL/hr Administer over 15 Minutes, ONCE, 1 dose, On Darling 08/25/24 at 1730, Routine, Is the patient strict NPO and unable to tolerate oral medication s? 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, Duration of Therapy: 7 days [facility] KCL 20 mEq/15 mL solution 40 mEq 2023-08 18:30: 00 08-25 17:54 :00 No 40meq 40 mEq, Oral, ONCE, 1 dose, On Darling 08/25/24 at 1230, Routine [facility] magnesium sulfate in water 4 gram/50 mL (8 %) IV Piggyback 4 g 2023-08 16:30: 00 08-25 20:00 :00 No 4g 4 g, IV Piggyback, at 25 mL/hr Administer over 120 Minutes, ONCE, 1 dose, On Darling 08/25/24 at 1030, Routine [facility] levoFLOXaci n in D5W (LEVAQUIN) 750 mg/150 mL Piggyback 750 mg 2023-08 15:30: 00 08-26 18:15 :51 No 750mg 750 mg, IV Piggyback, at 100 mL/hr Administer over 90 Minutes, Q24H ABX, 10 doses, First dose (after last modificati on) on Darling 08/25/24 at 0930, Last dose on 09/03/24 at 0930, AAKASH, Reason for Anti-Infec tive: Empiric Therapy for Suspected Infection, Empiric Therapy 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, Duration of therapy: As Defined in Treatment / Therapy Plan [facility] ampicillin (POLYCILLIN -N) 2,000 mg in NaCl 0.9% (NS) 100 mL MINI-BAG 2023-08 15:15: 00 08-28 17:40 :32 No 2000mg 2,000 mg, IV Piggyback, Q4H ABX, 42 doses, First dose on Darling 08/25/24 at 0915, Last dose on Darling 09/01/24 at 0515, Administer over 30 Minutes, 100 mL, Reason for Anti-Infec tive: Documented Infection, 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, Duration of Therapy: 7 days [facility] acyclovir (ZOVIRAX) 450 mg in NaCl 0.9% (NS) 100 mL IV infusion 2023-08 15:15: 00 08-27 13:36 :20 No 10mg/kg 450 mg (rounded from 440 mg = 10 mg/kg ?44 kg), IV Infusion, Q8H ABX, 30 doses, First dose on Darling 08/25/24 at 0915, Last dose on Thu09/04/24 at 0115, 100 mL, Restricted use approved by: KIKI BOLIVAR, ADULT ID [facility] acetaminoph en (OFIRMEV) IV piggyback 1,000 mg 2023-08 15:00: 00 08-25 14:51 :00 No 1000mg 1,000 mg, IV Piggyback, at 400 mL/hr Administer over 15 Minutes, ONCE, 1 dose, On Darling 08/25/24 at 0900, Routine, Is the patient strict NPO and unable to tolerate oral medication s? 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 Yes [facility] enoxaparin (LOVENOX) injection 40 mg 2023-08 23:00: 00 08-29 18:46 :14 No 40mg 40 mg, Subcutaneo us, DAILY, First dose on Thu08/24/24 at 1700, Until Discontinu ed, Routine [facility] ondansetron (ZOFRAN (PF)) injection 4 mg 2023-08 21:19: 58 08-31 00:19 :14 No 4mg 4 mg, Slow IV Push, Q6HPRN, Nausea and Vomiting (N/V), Starting on Thu08/24/24 at 1519, Please give medication over 2-5 minutes. [facility] acetaminoph en (OFIRMEV) IV piggyback 1,000 mg 2023-08 21:19: 00 08-24 22:35 :00 No 1000mg 1,000 mg, IV Piggyback, at 400 mL/hr Administer over 15 Minutes, ONCE, 1 dose, On Thu08/24/24 at 1530, AAKASH, Is the patient strict NPO and unable to tolerate oral medication s? Yes [facility] doxycycline (VIBRAMYCIN ) 100 mg in NaCl 0.9% (NS) 100 mL MINI-BAG 2023-08 18:30: 00 08-25 14:25 :10 No 100mg 100 mg, IV Piggyback, Q12H ABX, 10 doses, First dose on Thu08/24/24 at 1230, Last dose on Thu08/29/24 at 0030, Administer over 60 Minutes, 100 mL, Reason for Anti-Infec tive: Empiric Therapy for Suspected Infection, Empiric Therapy Site: Blood, Duration of therapy: 5 days [facility] cefTRIAXone (ROCEPHIN) 1,000 mg in water for injection, sterile 10 mL IV Push 2023-08 18:30: 00 08-25 14:15 :35 No 1000mg 1,000 mg, Intravenou s, Q24H ABX, 5 doses, First dose on Thu08/24/24 at 1230, Last dose on Thu08/28/24 at 1230, 10 mL, Reason for Anti-Infec tive: Empiric Therapy for Suspected Infection, Empiric Therapy Site: Blood, Duration of therapy: 72 hours [facility] lactated ringers IV infusion 1,000 mL 2023-08 17:04: 00 08-25 05:12 :00 No 1000mL at 999 mL/hr, 1,000 mL, Intravenou s, ONCE, 1 dose, On Thu08/24/24 at 1115, Routine [facility] ondansetron (ZOFRAN-ODT ) disintegrat ing tablet 4 mg 2023-08 20:00: 00 08-22 19:19 :00 No 4mg 4 mg, Oral, ONCE, 1 dose, On Thu08/22/24 at 1400, Routine [facility] acetaminoph en (TYLENOL) tablet 650 mg 2023-08 19:15: 00 08-22 19:20 :00 No 650mg 650 mg, Oral, ONCE, 1 dose, On Thu08/22/24 at 1315, AAKASH [facility] ondansetron 4 mg disintegrat ing tablet 2023-08 00:00: 00 08-24 00:00 :00 No [id number] 4mg Take 1 tablet by mouth every 8 (eight) hours as needed for Nausea and Vomiting (N/V). [facility] cetirizine (ZYRTEC) 10 mg tablet 2023-08 00:00: 00 08-24 00:00 :00 No [id number] 10mg Take 1 tablet by mouth in the morning for 30 days. [facility] fluticasone propionate 50 mcg/actuati on nasal spray 2023-08 00:00: 00 08-24 00:00 :00 No [id number] 1{spray } Use 1 [place] in each nostril in the morning for 30 days. [facility] FLUoxetine 10 mg capsule 05-10 00:00: 00 08-24 00:00 :00 No [id number] Take one capsule once at day for two weeks then increase to two tabs po once a day [facility] norgestimat e-ethinyl estradioL 0.25-35 mg-mcg per tablet 02-25 00:00: 00 08-24 00:00 :00 No [id number] 1{tbl} Take 1 tablet by mouth in the morning. [facility] traZODone 50 mg tablet 02-14 00:00: 00 08-24 00:00 :00 No [id number] 50mg Take 1 tablet by mouth at bedtime. [facility] amoxicillin -pot clavulanate 600-42.9 mg/5 mL suspension 10-21 00:00: 00 02-14 00:00 :00 No [id number] Give 7.5 ml po bid for 10 days [facility] famotidine 20 mg tablet 2022-08 00:00: 00 08-22 00:00 :00 No 20mg Take 1 tablet by mouth in the morning and 1 tablet in the evening. [facility] ondansetron 8 mg disintegrat ing tablet 2022-08 00:00: 00 08-22 00:00 :00 No [id number] 8mg Take 1 tablet by mouth every 8 (eight) hours as needed for Nausea and Vomiting (N/V). [facility] traZODone 50 mg tablet 2022-08- 00:00: 00 02-14 00:00 :00 No [id number] 50mg Take 1 tablet by mouth at bedtime. [facility] azithromyci n (ZITHROMAX) 200 mg/5 mL suspension 2022-08- 00:00: 00 07-22 00:00 :00 No [id number] 12.5 ml po day 1 then 6.25 ml po days 2-5 [facility] hydrOXYzine 10 mg tablet 03-30 00:00: 00 06-08 00:00 :00 No [id number] Take 1 to 2 po qhs for sleep and anxiety [facility] amoxicillin -pot clavulanate 600-42.9 mg/5 mL suspension - 00:00: 00 06-08 00:00 :00 No [id number] Take 10 ml po bid for 10 days [facility] FLUOXETINE 20 mg capsule - 00:00: 00 03-30 00:00 :00 No [id number] TAKE ONE (1) CAPSULE(S) BY MOUTH EVERY MORNING. [facility] pedi multivit no.140-iron fum (KIDS MULTIVITAMI N COMPLETE) 18 mg iron Chew - 00:00: 00 Yes [id number] 1{tbl} Take 1 tablet by mouth in the morning. [facility] pedi multivit no.140-iron fum (KIDS MULTIVITAMI N COMPLETE) 18 mg iron Chew -20 00:00: 00 08-24 00:00 :00 No [id number] 1{tbl} Take 1 tablet by mouth in the morning. [facility] fluticasone propionate 50 mcg/actuati on nasal spray 4-20 00:00: 00 08-22 00:00 :00 No [id number] 1{spray } Use 1 [place] in each nostril in the morning. [facility] cetirizine 10 mg tablet - 00:00: 00 03-30 00:00 :00 No [id number] 10mg Take 1 tablet by mouth in the morning. [facility] azithromyci n 250 mg tablet 12-18 00:00: 00 03-30 00:00 :00 No [id number] 250mg Take 1 tablet by mouth in the morning. [facility] FLUoxetine 20 mg capsule 12-18 00:00: 00 01-16 00:00 :00 No 20mg Take 1 capsule by mouth in the morning. [facility] ibuprofen (IBU) tablet 400 mg 12-02 20:00: 00 12-02 19:16 :00 No [id number] 400mg [facility] dextrometho rphan-guaif enesin 10-100 mg/5 mL solution 2021-08 0 00:00: 00 08-22 00:00 :00 No [id number] 10mL Take 10 mL by mouth every 6 (six) hours as needed for Cough. [facility] cetirizine 10 mg tablet 2021-08 0 00:00: 00 12-18 00:00 :00 No [id number] 10mg Take 1 tablet by mouth in the morning. [facility] fluticasone propionate 50 mcg/actuati on nasal spray 2021-08 0 00:00: 00 12-18 00:00 :00 No [id number] 1{spray } Use 1 [place] in each nostril in the morning. [facility] azithromyci n (ZITHROMAX Z-MILENA) 250 mg tablet 2021-08 0 00:00: 00 12-18 00:00 :00 No [id number] 250mg Z-Milena = 500 mg day 1, then 250 mg days 2 to 5. [facility] Immune Globulin, Human,, IGG, (HIZENTRA) 4 gram/20 mL (20 %) subcutaneou s infusion RTU 05-29 00:00: 08-24 00:00 :00 No [id number] 8g inject 40 mL under the skin every 2 (two) weeks. [facility] pedi multivit no.140-iron fum (KIDS MULTIVITAMI N COMPLETE) 18 mg iron Chew 05-23 00:00: 00 12-18 00:00 :00 No [id number] 1{tbl} Take 1 tablet by mouth daily. [facility] cefdinir 125 mg/5 mL suspension 05-23 00:00: 00 06-07 04:59 :00 No [id number] 250mg Take 10 mL by mouth in the morning and 10 mL in the evening. Do all this for 14 days. [facility] ibuprofen (IBU) tablet 600 mg 03-21 05:30: 00 03-21 05:18 :00 No 600mg 600 mg, Oral, ONCE, 1 dose, On Thu03/21/22 at 0030, AAKASH [facility] Immune Globulin, Human,, IGG, (HIZENTRA) 4 gram/20 mL (20 %) subcutaneou s infusion RTU 02-24 00:00: 00 05-29 00:00 :00 No [id number] 8g inject 40 mL under the skin every 2 (two) weeks. [facility] amoxicillin 400 mg/5 mL oral suspension 01-01 00:00: 02-24 00:00 :00 No [id number] Give 12.5 ml PO BID for 10 days [facility] benzonatate (TESSALON PERLES) 100 mg capsule 5- 00:00: 00 02-24 00:00 :00 No [id number] 100mg Take 1 capsule by mouth every 8 (eight) hours as needed for Cough. [facility] albuterol (PROAIR HFA) 90 mcg/actuati on inhaler 4- 00:00: 00 08-24 00:00 :00 No [id number] 2{puff} Inhale 2 Puffs every 6 (six) hours as needed for Wheezing or Shortness of Breath. [facility] fluticasone propionate 44 mcg/actuati on inhaler 11-29 00:00: 00 08-22 00:00 :00 No [id number] 2{puff} Inhale 2 Puffs 2 (two) times daily. [facility] cetirizine 10 mg tablet 11-29 00:00: 00 06-16 00:00 :00 No [id number] 10mg Take 1 tablet by mouth daily. [facility] Immunizations Ordered Immunization Name Filled Immunization Name Date Status Comments Source Influenza Virus Vaccine Quad .5 mL IM 6+ MO (FLUZONE/FLULAVAL/FL UARIX) 2021-07-01 00:00:00 Completed Influenza Virus Vaccine Quad .5 mL IM 6+ MO 2021-07-01 00:00:00 Completed [facility] Influenza Virus Vaccine Quad .5 mL IM 6+ MO 2021-07-01 00:00:00 Completed [facility] Influenza Virus Vaccine Quad .5 mL IM 6+ MO 2021-07-01 00:00:00 Completed [facility] Influenza Virus Vaccine Quad .5 mL IM 6+ MO 2021-07-01 00:00:00 Completed [facility] Influenza Virus Vaccine Quad .5 mL IM 6+ MO 2021-07-01 00:00:00 Completed [facility] Influenza Virus Vaccine Quad .5 mL IM 6+ MO 2021-07-01 00:00:00 Completed [facility] Influenza Virus Vaccine Quad .5 mL IM 6+ MO 2021-07-01 00:00:00 Completed [facility] Influenza Virus Vaccine Quad .5 mL IM 6+ MO 2021-07-01 00:00:00 Completed [facility] Influenza Virus Vaccine Quad .5 mL IM 6+ MO 2021-07-01 00:00:00 Completed [facility] Influenza Virus Vaccine Quad .5 mL IM 6+ MO 2021-07-01 00:00:00 Completed [facility] Influenza Virus Vaccine Quad .5 mL IM 6+ MO 2021-07-01 00:00:00 Completed [facility] Influenza Virus Vaccine Quad .5 mL IM 6+ MO 2021-07-01 00:00:00 Completed [facility] Influenza Virus Vaccine Quad .5 mL IM 6+ MO 2021-07-01 00:00:00 Completed [facility] Influenza Virus Vaccine Quad .5 mL IM 6+ MO 2021-07-01 00:00:00 Completed [facility] Influenza Virus Vaccine Quad .5 mL IM 6+ MO 2021-07-01 00:00:00 Completed [facility] Influenza Virus Vaccine Quad .5 mL IM 6+ MO 2021-07-01 00:00:00 Completed [facility] Influenza Virus Vaccine Quad .5 mL IM 6+ MO 2021-07-01 00:00:00 Completed [facility] Influenza Virus Vaccine Quad .5 mL IM 6+ MO 2021-07-01 00:00:00 Completed [facility] Influenza Virus Vaccine Quad .5 mL IM 6+ MO 2021-07-01 00:00:00 Completed [facility] Influenza Virus Vaccine Quad .5 mL IM 6+ MO 2021-07-01 00:00:00 Completed [facility] Influenza Virus Vaccine Quad .5 mL IM 6+ MO 2021-07-01 00:00:00 Completed [facility] Influenza Virus Vaccine Quad .5 mL IM 6+ MO 2021-07-01 00:00:00 Completed [facility] Influenza Virus Vaccine Quad .5 mL IM 6+ MO 2021-07-01 00:00:00 Completed [facility] Influenza Virus Vaccine Quad .5 mL IM 6+ MO 2021-07-01 00:00:00 Completed [facility] Influenza Virus Vaccine Quad .5 mL IM 6+ MO 2021-07-01 00:00:00 Completed [facility] Influenza Virus Vaccine Quad .5 mL IM 6+ MO 2021-07-01 00:00:00 Completed [facility] Influenza Virus Vaccine Quad .5 mL IM 6+ MO 2021-07-01 00:00:00 Completed [facility] Influenza Virus Vaccine Quad .5 mL IM 6+ MO 2021-07-01 00:00:00 Completed [facility] Influenza Virus Vaccine Quad .5 mL IM 6+ MO 2021-07-01 00:00:00 Completed [facility] Influenza Virus Vaccine Quad .5 mL IM 6+ MO 2021-07-01 00:00:00 Completed [facility] Influenza Virus Vaccine Quad .5 mL IM 6+ MO 2021-07-01 00:00:00 Completed [facility] Influenza Virus Vaccine Quad .5 mL IM 6+ MO 2021-07-01 00:00:00 Completed [facility] Influenza Virus Vaccine Quad .5 mL IM 6+ MO (FLUZONE/FLULAVAL/FL UARIX) 2021-07-01 00:00:00 Completed [facility] Influenza Virus Vaccine Quad .5 mL IM 6+ MO (FLUZONE/FLULAVAL/FL UARIX) 2020-11-08 00:00:00 Completed [facility] Influenza Virus Vaccine Quad .5 mL IM 6+ MO 2020-11-08 00:00:00 Completed [facility] Influenza Virus Vaccine Quad .5 mL IM 6+ MO 2020-11-08 00:00:00 Completed [facility] Influenza Virus Vaccine Quad .5 mL IM 6+ MO 2020-11-08 00:00:00 Completed [facility] Influenza Virus Vaccine Quad .5 mL IM 6+ MO 2020-11-08 00:00:00 Completed [facility] Influenza Virus Vaccine Quad .5 mL IM 6+ MO 2020-11-08 00:00:00 Completed [facility] Influenza Virus Vaccine Quad .5 mL IM 6+ MO 2020-11-08 00:00:00 Completed [facility] Influenza Virus Vaccine Quad .5 mL IM 6+ MO 2020-11-08 00:00:00 Completed [facility] Influenza Virus Vaccine Quad .5 mL IM 6+ MO 2020-11-08 00:00:00 Completed [facility] Influenza Virus Vaccine Quad .5 mL IM 6+ MO 2020-11-08 00:00:00 Completed [facility] Influenza Virus Vaccine Quad .5 mL IM 6+ MO 2020-11-08 00:00:00 Completed [facility] Influenza Virus Vaccine Quad .5 mL IM 6+ MO 2020-11-08 00:00:00 Completed [facility] Influenza Virus Vaccine Quad .5 mL IM 6+ MO 2020-11-08 00:00:00 Completed [facility] Influenza Virus Vaccine Quad .5 mL IM 6+ MO 2020-11-08 00:00:00 Completed [facility] Influenza Virus Vaccine Quad .5 mL IM 6+ MO 2020-11-08 00:00:00 Completed [facility] Influenza Virus Vaccine Quad .5 mL IM 6+ MO 2020-11-08 00:00:00 Completed [facility] Influenza Virus Vaccine Quad .5 mL IM 6+ MO 2020-11-08 00:00:00 Completed [facility] Influenza Virus Vaccine Quad .5 mL IM 6+ MO 2020-11-08 00:00:00 Completed [facility] Influenza Virus Vaccine Quad .5 mL IM 6+ MO 2020-11-08 00:00:00 Completed [facility] Influenza Virus Vaccine Quad .5 mL IM 6+ MO 2020-11-08 00:00:00 Completed [facility] Influenza Virus Vaccine Quad .5 mL IM 6+ MO 2020-11-08 00:00:00 Completed [facility] Influenza Virus Vaccine Quad .5 mL IM 6+ MO 2020-11-08 00:00:00 Completed [facility] Influenza Virus Vaccine Quad .5 mL IM 6+ MO 2020-11-08 00:00:00 Completed [facility] Influenza Virus Vaccine Quad .5 mL IM 6+ MO 2020-11-08 00:00:00 Completed [facility] Influenza Virus Vaccine Quad .5 mL IM 6+ MO 2020-11-08 00:00:00 Completed [facility] Influenza Virus Vaccine Quad .5 mL IM 6+ MO 2020-11-08 00:00:00 Completed [facility] Influenza Virus Vaccine Quad .5 mL IM 6+ MO 2020-11-08 00:00:00 Completed [facility] Influenza Virus Vaccine Quad .5 mL IM 6+ MO 2020-11-08 00:00:00 Completed [facility] Influenza Virus Vaccine Quad .5 mL IM 6+ MO 2020-11-08 00:00:00 Completed [facility] Influenza Virus Vaccine Quad .5 mL IM 6+ MO 2020-11-08 00:00:00 Completed [facility] Influenza Virus Vaccine Quad .5 mL IM 6+ MO 2020-11-08 00:00:00 Completed [facility] Influenza Virus Vaccine Quad .5 mL IM 6+ MO 2020-11-08 00:00:00 Completed [facility] Influenza Virus Vaccine Quad .5 mL IM 6+ MO 2020-11-08 00:00:00 Completed [facility] Influenza Virus Vaccine Quad .5 mL IM 6+ MO (FLUZONE/FLULAVAL/FL UARIX) 2020-11-08 00:00:00 Completed [facility] Pneumococcal Polysaccharide, PPSV23 (PNEUMOVAX) 2020-09-24 00:00:00 Completed [facility] TDAP 2020-09-24 00:00:00 Completed Pneumococcal Polysaccharide, PPSV23 (PNEUMOVAX) 2020-09-24 00:00:00 Completed [facility] TDAP 2020-09-24 00:00:00 Completed [facility] Pneumococcal Polysaccharide, PPSV23 (PNEUMOVAX) 2020-09-24 00:00:00 Completed [facility] TDAP 2020-09-24 00:00:00 Completed [facility] Pneumococcal Polysaccharide, PPSV23 (PNEUMOVAX) 2020-09-24 00:00:00 Completed [facility] TDAP 2020-09-24 00:00:00 Completed [facility] Pneumococcal Polysaccharide, PPSV23 (PNEUMOVAX) 2020-09-24 00:00:00 Completed [facility] TDAP 2020-09-24 00:00:00 Completed [facility] Pneumococcal Polysaccharide, PPSV23 (PNEUMOVAX) 2020-09-24 00:00:00 Completed [facility] TDAP 2020-09-24 00:00:00 Completed [facility] Pneumococcal Polysaccharide, PPSV23 (PNEUMOVAX) 2020-09-24 00:00:00 Completed [facility] TDAP 2020-09-24 00:00:00 Completed [facility] Pneumococcal Polysaccharide, PPSV23 (PNEUMOVAX) 2020-09-24 00:00:00 Completed [facility] TDAP 2020-09-24 00:00:00 Completed [facility] Pneumococcal Polysaccharide, PPSV23 (PNEUMOVAX) 2020-09-24 00:00:00 Completed [facility] TDAP 2020-09-24 00:00:00 Completed [facility] Pneumococcal Polysaccharide, PPSV23 (PNEUMOVAX) 2020-09-24 00:00:00 Completed [facility] TDAP 2020-09-24 00:00:00 Completed [facility] Pneumococcal Polysaccharide, PPSV23 (PNEUMOVAX) 2020-09-24 00:00:00 Completed [facility] TDAP 2020-09-24 00:00:00 Completed [facility] Pneumococcal Polysaccharide, PPSV23 (PNEUMOVAX) 2020-09-24 00:00:00 Completed [facility] TDAP 2020-09-24 00:00:00 Completed [facility] Pneumococcal Polysaccharide, PPSV23 (PNEUMOVAX) 2020-09-24 00:00:00 Completed [facility] TDAP 2020-09-24 00:00:00 Completed [facility] Pneumococcal Polysaccharide, PPSV23 (PNEUMOVAX) 2020-09-24 00:00:00 Completed [facility] TDAP 2020-09-24 00:00:00 Completed [facility] Pneumococcal Polysaccharide, PPSV23 (PNEUMOVAX) 2020-09-24 00:00:00 Completed [facility] TDAP 2020-09-24 00:00:00 Completed [facility] Pneumococcal Polysaccharide, PPSV23 (PNEUMOVAX) 2020-09-24 00:00:00 Completed [facility] TDAP 2020-09-24 00:00:00 Completed [facility] Pneumococcal Polysaccharide, PPSV23 (PNEUMOVAX) 2020-09-24 00:00:00 Completed [facility] TDAP 2020-09-24 00:00:00 Completed [facility] Pneumococcal Polysaccharide, PPSV23 (PNEUMOVAX) 2020-09-24 00:00:00 Completed [facility] TDAP 2020-09-24 00:00:00 Completed [facility] Pneumococcal Polysaccharide, PPSV23 (PNEUMOVAX) 2020-09-24 00:00:00 Completed [facility] TDAP 2020-09-24 00:00:00 Completed [facility] Pneumococcal Polysaccharide, PPSV23 (PNEUMOVAX) 2020-09-24 00:00:00 Completed [facility] TDAP 2020-09-24 00:00:00 Completed [facility] Pneumococcal Polysaccharide, PPSV23 (PNEUMOVAX) 2020-09-24 00:00:00 Completed [facility] TDAP 2020-09-24 00:00:00 Completed [facility] Pneumococcal Polysaccharide, PPSV23 (PNEUMOVAX) 2020-09-24 00:00:00 Completed [facility] TDAP 2020-09-24 00:00:00 Completed [facility] Pneumococcal Polysaccharide, PPSV23 (PNEUMOVAX) 2020-09-24 00:00:00 Completed [facility] TDAP 2020-09-24 00:00:00 Completed [facility] Pneumococcal Polysaccharide, PPSV23 (PNEUMOVAX) 2020-09-24 00:00:00 Completed [facility] TDAP 2020-09-24 00:00:00 Completed [facility] Pneumococcal Polysaccharide, PPSV23 (PNEUMOVAX) 2020-09-24 00:00:00 Completed [facility] TDAP 2020-09-24 00:00:00 Completed [facility] Pneumococcal Polysaccharide, PPSV23 (PNEUMOVAX) 2020-09-24 00:00:00 Completed [facility] TDAP 2020-09-24 00:00:00 Completed [facility] Pneumococcal Polysaccharide, PPSV23 (PNEUMOVAX) 2020-09-24 00:00:00 Completed [facility] TDAP 2020-09-24 00:00:00 Completed [facility] Pneumococcal Polysaccharide, PPSV23 (PNEUMOVAX) 2020-09-24 00:00:00 Completed [facility] TDAP 2020-09-24 00:00:00 Completed [facility] Pneumococcal Polysaccharide, PPSV23 (PNEUMOVAX) 2020-09-24 00:00:00 Completed [facility] TDAP 2020-09-24 00:00:00 Completed [facility] Pneumococcal Polysaccharide, PPSV23 (PNEUMOVAX) 2020-09-24 00:00:00 Completed [facility] TDAP 2020-09-24 00:00:00 Completed [facility] Pneumococcal Polysaccharide, PPSV23 (PNEUMOVAX) 2020-09-24 00:00:00 Completed [facility] TDAP 2020-09-24 00:00:00 Completed [facility] Pneumococcal Polysaccharide, PPSV23 (PNEUMOVAX) 2020-09-24 00:00:00 Completed [facility] TDAP 2020-09-24 00:00:00 Completed [facility] Pneumococcal Polysaccharide, PPSV23 (PNEUMOVAX) 2020-09-24 00:00:00 Completed [facility] TDAP 2020-09-24 00:00:00 Completed [facility] Pneumococcal Polysaccharide, PPSV23 (PNEUMOVAX) 2020-09-24 00:00:00 Completed [facility] TDAP 2020-09-24 00:00:00 Completed [facility] Meningococcal Polysaccharide (groups A, C, Y and W-135) conjugate vaccine (MCV4P) 2020-09-10 00:00:00 Completed [facility] Meningococcal Polysaccharide (groups A, C, Y and W-135) conjugate vaccine (MCV4P) 2020-09-10 00:00:00 Completed [facility] Meningococcal Polysaccharide (groups A, C, Y and W-135) conjugate vaccine (MCV4P) 2020-09-10 00:00:00 Completed [facility] Meningococcal Polysaccharide (groups A, C, Y and W-135) conjugate vaccine (MCV4P) 2020-09-10 00:00:00 Completed [facility] Meningococcal Polysaccharide (groups A, C, Y and W-135) conjugate vaccine (MCV4P) 2020-09-10 00:00:00 Completed [facility] Meningococcal Polysaccharide (groups A, C, Y and W-135) conjugate vaccine (MCV4P) 2020-09-10 00:00:00 Completed [facility] Meningococcal Polysaccharide (groups A, C, Y and W-135) conjugate vaccine (MCV4P) 2020-09-10 00:00:00 Completed [facility] Meningococcal Polysaccharide (groups A, C, Y and W-135) conjugate vaccine (MCV4P) 2020-09-10 00:00:00 Completed [facility] Meningococcal Polysaccharide (groups A, C, Y and W-135) conjugate vaccine (MCV4P) 2020-09-10 00:00:00 Completed [facility] Meningococcal Polysaccharide (groups A, C, Y and W-135) conjugate vaccine (MCV4P) 2020-09-10 00:00:00 Completed [facility] Meningococcal Polysaccharide (groups A, C, Y and W-135) conjugate vaccine (MCV4P) 2020-09-10 00:00:00 Completed [facility] Meningococcal Polysaccharide (groups A, C, Y and W-135) conjugate vaccine (MCV4P) 2020-09-10 00:00:00 Completed [facility] Meningococcal Polysaccharide (groups A, C, Y and W-135) conjugate vaccine (MCV4P) 2020-09-10 00:00:00 Completed [facility] Meningococcal Polysaccharide (groups A, C, Y and W-135) conjugate vaccine (MCV4P) 2020-09-10 00:00:00 Completed [facility] Meningococcal Polysaccharide (groups A, C, Y and W-135) conjugate vaccine (MCV4P) 2020-09-10 00:00:00 Completed [facility] Meningococcal Polysaccharide (groups A, C, Y and W-135) conjugate vaccine (MCV4P) 2020-09-10 00:00:00 Completed [facility] Meningococcal Polysaccharide (groups A, C, Y and W-135) conjugate vaccine (MCV4P) 2020-09-10 00:00:00 Completed [facility] Meningococcal Polysaccharide (groups A, C, Y and W-135) conjugate vaccine (MCV4P) 2020-09-10 00:00:00 Completed [facility] Meningococcal Polysaccharide (groups A, C, Y and W-135) conjugate vaccine (MCV4P) 2020-09-10 00:00:00 Completed [facility] Meningococcal Polysaccharide (groups A, C, Y and W-135) conjugate vaccine (MCV4P) 2020-09-10 00:00:00 Completed [facility] Meningococcal Polysaccharide (groups A, C, Y and W-135) conjugate vaccine (MCV4P) 2020-09-10 00:00:00 Completed [facility] Meningococcal Polysaccharide (groups A, C, Y and W-135) conjugate vaccine (MCV4P) 2020-09-10 00:00:00 Completed [facility] Meningococcal Polysaccharide (groups A, C, Y and W-135) conjugate vaccine (MCV4P) 2020-09-10 00:00:00 Completed [facility] Meningococcal Polysaccharide (groups A, C, Y and W-135) conjugate vaccine (MCV4P) 2020-09-10 00:00:00 Completed [facility] Meningococcal Polysaccharide (groups A, C, Y and W-135) conjugate vaccine (MCV4P) 2020-09-10 00:00:00 Completed [facility] Meningococcal Polysaccharide (groups A, C, Y and W-135) conjugate vaccine (MCV4P) 2020-09-10 00:00:00 Completed [facility] Meningococcal Polysaccharide (groups A, C, Y and W-135) conjugate vaccine (MCV4P) 2020-09-10 00:00:00 Completed [facility] Meningococcal Polysaccharide (groups A, C, Y and W-135) conjugate vaccine (MCV4P) 2020-09-10 00:00:00 Completed [facility] Meningococcal Polysaccharide (groups A, C, Y and W-135) conjugate vaccine (MCV4P) 2020-09-10 00:00:00 Completed [facility] Meningococcal Polysaccharide (groups A, C, Y and W-135) conjugate vaccine (MCV4P) 2020-09-10 00:00:00 Completed [facility] Meningococcal Polysaccharide (groups A, C, Y and W-135) conjugate vaccine (MCV4P) 2020-09-10 00:00:00 Completed [facility] Meningococcal Polysaccharide (groups A, C, Y and W-135) conjugate vaccine (MCV4P) 2020-09-10 00:00:00 Completed [facility] Meningococcal Polysaccharide (groups A, C, Y and W-135) conjugate vaccine (MCV4P) 2020-09-10 00:00:00 Completed [facility] Meningococcal Polysaccharide (groups A, C, Y and W-135) conjugate vaccine (MCV4P) 2020-09-10 00:00:00 Completed [facility] HPV9 2020-08-21 00:00:00 Completed HPV9 2020-08-21 00:00:00 Completed [facility] HPV9 2020-08-21 00:00:00 Completed [facility] HPV9 2020-08-21 00:00:00 Completed [facility] HPV9 2020-08-21 00:00:00 Completed [facility] HPV9 2020-08-21 00:00:00 Completed [facility] HPV9 2020-08-21 00:00:00 Completed [facility] HPV9 2020-08-21 00:00:00 Completed [facility] HPV9 2020-08-21 00:00:00 Completed [facility] HPV9 2020-08-21 00:00:00 Completed [facility] HPV9 2020-08-21 00:00:00 Completed [facility] HPV9 2020-08-21 00:00:00 Completed [facility] HPV9 2020-08-21 00:00:00 Completed [facility] HPV9 2020-08-21 00:00:00 Completed [facility] HPV9 2020-08-21 00:00:00 Completed [facility] HPV9 2020-08-21 00:00:00 Completed [facility] HPV9 2020-08-21 00:00:00 Completed [facility] HPV9 2020-08-21 00:00:00 Completed [facility] HPV9 2020-08-21 00:00:00 Completed [facility] HPV9 2020-08-21 00:00:00 Completed [facility] HPV9 2020-08-21 00:00:00 Completed [facility] HPV9 2020-08-21 00:00:00 Completed [facility] HPV9 2020-08-21 00:00:00 Completed [facility] HPV9 2020-08-21 00:00:00 Completed [facility] HPV9 2020-08-21 00:00:00 Completed [facility] HPV9 2020-08-21 00:00:00 Completed [facility] HPV9 2020-08-21 00:00:00 Completed [facility] HPV9 2020-08-21 00:00:00 Completed [facility] HPV9 2020-08-21 00:00:00 Completed [facility] HPV9 2020-08-21 00:00:00 Completed [facility] HPV9 2020-08-21 00:00:00 Completed [facility] HPV9 2020-08-21 00:00:00 Completed [facility] HPV9 2020-08-21 00:00:00 Completed [facility] HPV9 2020-08-21 00:00:00 Completed [facility] HPV9 2020-05-21 00:00:00 Completed HPV9 2020-05-21 00:00:00 Completed [facility] HPV9 2020-05-21 00:00:00 Completed [facility] HPV9 2020-05-21 00:00:00 Completed [facility] HPV9 2020-05-21 00:00:00 Completed [facility] HPV9 2020-05-21 00:00:00 Completed [facility] HPV9 2020-05-21 00:00:00 Completed [facility] HPV9 2020-05-21 00:00:00 Completed [facility] HPV9 2020-05-21 00:00:00 Completed [facility] HPV9 2020-05-21 00:00:00 Completed [facility] HPV9 2020-05-21 00:00:00 Completed [facility] HPV9 2020-05-21 00:00:00 Completed [facility] HPV9 2020-05-21 00:00:00 Completed [facility] HPV9 2020-05-21 00:00:00 Completed [facility] HPV9 2020-05-21 00:00:00 Completed [facility] HPV9 2020-05-21 00:00:00 Completed [facility] HPV9 2020-05-21 00:00:00 Completed [facility] HPV9 2020-05-21 00:00:00 Completed [facility] HPV9 2020-05-21 00:00:00 Completed [facility] HPV9 2020-05-21 00:00:00 Completed [facility] HPV9 2020-05-21 00:00:00 Completed [facility] HPV9 2020-05-21 00:00:00 Completed [facility] HPV9 2020-05-21 00:00:00 Completed [facility] HPV9 2020-05-21 00:00:00 Completed [facility] HPV9 2020-05-21 00:00:00 Completed [facility] HPV9 2020-05-21 00:00:00 Completed [facility] HPV9 2020-05-21 00:00:00 Completed [facility] HPV9 2020-05-21 00:00:00 Completed [facility] HPV9 2020-05-21 00:00:00 Completed [facility] HPV9 2020-05-21 00:00:00 Completed [facility] HPV9 2020-05-21 00:00:00 Completed [facility] HPV9 2020-05-21 00:00:00 Completed [facility] HPV9 2020-05-21 00:00:00 Completed [facility] HPV9 2020-05-21 00:00:00 Completed [facility] HPV9 2020-02-20 00:00:00 Completed [facility] HPV9 2020-02-20 00:00:00 Completed [facility] HPV9 2020-02-20 00:00:00 Completed [facility] HPV9 2020-02-20 00:00:00 Completed [facility] HPV9 2020-02-20 00:00:00 Completed [facility] HPV9 2020-02-20 00:00:00 Completed [facility] HPV9 2020-02-20 00:00:00 Completed [facility] HPV9 2020-02-20 00:00:00 Completed [facility] HPV9 2020-02-20 00:00:00 Completed [facility] HPV9 2020-02-20 00:00:00 Completed [facility] HPV9 2020-02-20 00:00:00 Completed [facility] HPV9 2020-02-20 00:00:00 Completed [facility] HPV9 2020-02-20 00:00:00 Completed [facility] HPV9 2020-02-20 00:00:00 Completed [facility] HPV9 2020-02-20 00:00:00 Completed [facility] HPV9 2020-02-20 00:00:00 Completed [facility] HPV9 2020-02-20 00:00:00 Completed [facility] HPV9 2020-02-20 00:00:00 Completed [facility] HPV9 2020-02-20 00:00:00 Completed [facility] HPV9 2020-02-20 00:00:00 Completed [facility] HPV9 2020-02-20 00:00:00 Completed [facility] HPV9 2020-02-20 00:00:00 Completed [facility] HPV9 2020-02-20 00:00:00 Completed [facility] HPV9 2020-02-20 00:00:00 Completed [facility] HPV9 2020-02-20 00:00:00 Completed [facility] HPV9 2020-02-20 00:00:00 Completed [facility] HPV9 2020-02-20 00:00:00 Completed [facility] HPV9 2020-02-20 00:00:00 Completed [facility] HPV9 2020-02-20 00:00:00 Completed [facility] HPV9 2020-02-20 00:00:00 Completed [facility] HPV9 2020-02-20 00:00:00 Completed [facility] HPV9 2020-02-20 00:00:00 Completed [facility] HPV9 2020-02-20 00:00:00 Completed [facility] HPV9 2020-02-20 00:00:00 Completed [facility] Influenza Virus Vaccine Quad .5 mL IM 6+ MO 2019-07-07 00:00:00 Completed [facility] Influenza Virus Vaccine Quad .5 mL IM 6+ MO 2019-07-07 00:00:00 Completed [facility] Influenza Virus Vaccine Quad .5 mL IM 6+ MO 2019-07-07 00:00:00 Completed [facility] Influenza Virus Vaccine Quad .5 mL IM 6+ MO 2019-07-07 00:00:00 Completed [facility] Influenza Virus Vaccine Quad .5 mL IM 6+ MO 2019-07-07 00:00:00 Completed [facility] Influenza Virus Vaccine Quad .5 mL IM 6+ MO 2019-07-07 00:00:00 Completed [facility] Influenza Virus Vaccine Quad .5 mL IM 6+ MO 2019-07-07 00:00:00 Completed [facility] Influenza Virus Vaccine Quad .5 mL IM 6+ MO 2019-07-07 00:00:00 Completed [facility] Influenza Virus Vaccine Quad .5 mL IM 6+ MO 2019-07-07 00:00:00 Completed [facility] Influenza Virus Vaccine Quad .5 mL IM 6+ MO 2019-07-07 00:00:00 Completed [facility] Influenza Virus Vaccine Quad .5 mL IM 6+ MO 2019-07-07 00:00:00 Completed [facility] Influenza Virus Vaccine Quad .5 mL IM 6+ MO 2019-07-07 00:00:00 Completed [facility] Influenza Virus Vaccine Quad .5 mL IM 6+ MO 2019-07-07 00:00:00 Completed [facility] Influenza Virus Vaccine Quad .5 mL IM 6+ MO 2019-07-07 00:00:00 Completed [facility] Influenza Virus Vaccine Quad .5 mL IM 6+ MO 2019-07-07 00:00:00 Completed [facility] Influenza Virus Vaccine Quad .5 mL IM 6+ MO 2019-07-07 00:00:00 Completed [facility] Influenza Virus Vaccine Quad .5 mL IM 6+ MO 2019-07-07 00:00:00 Completed [facility] Influenza Virus Vaccine Quad .5 mL IM 6+ MO 2019-07-07 00:00:00 Completed [facility] Influenza Virus Vaccine Quad .5 mL IM 6+ MO 2019-07-07 00:00:00 Completed [facility] Influenza Virus Vaccine Quad .5 mL IM 6+ MO 2019-07-07 00:00:00 Completed [facility] Influenza Virus Vaccine Quad .5 mL IM 6+ MO 2019-07-07 00:00:00 Completed [facility] Influenza Virus Vaccine Quad .5 mL IM 6+ MO 2019-07-07 00:00:00 Completed [facility] Influenza Virus Vaccine Quad .5 mL IM 6+ MO 2019-07-07 00:00:00 Completed [facility] Influenza Virus Vaccine Quad .5 mL IM 6+ MO 2019-07-07 00:00:00 Completed [facility] Influenza Virus Vaccine Quad .5 mL IM 6+ MO 2019-07-07 00:00:00 Completed [facility] Influenza Virus Vaccine Quad .5 mL IM 6+ MO 2019-07-07 00:00:00 Completed [facility] Influenza Virus Vaccine Quad .5 mL IM 6+ MO 2019-07-07 00:00:00 Completed [facility] Influenza Virus Vaccine Quad .5 mL IM 6+ MO 2019-07-07 00:00:00 Completed [facility] Influenza Virus Vaccine Quad .5 mL IM 6+ MO 2019-07-07 00:00:00 Completed [facility] Influenza Virus Vaccine Quad .5 mL IM 6+ MO 2019-07-07 00:00:00 Completed [facility] Influenza Virus Vaccine Quad .5 mL IM 6+ MO 2019-07-07 00:00:00 Completed [facility] Influenza Virus Vaccine Quad .5 mL IM 6+ MO 2019-07-07 00:00:00 Completed [facility] Influenza Virus Vaccine Quad .5 mL IM 6+ MO (FLUZONE/FLULAVAL/FL UARIX) 2019-07-07 00:00:00 Completed [facility] Influenza Virus Vaccine Quad .5 mL IM 6+ MO (FLUZONE/FLULAVAL/FL UARIX) 2019-07-07 00:00:00 Completed [facility] Meningococcal Polysaccharide (groups A, C, Y and W-135) conjugate vaccine (MCV4P) 2016-10-14 00:00:00 Completed TDAP 2016-10-14 00:00:00 Completed Meningococcal Polysaccharide (groups A, C, Y and W-135) conjugate vaccine (MCV4P) 2016-10-14 00:00:00 Completed [facility] TDAP 2016-10-14 00:00:00 Completed [facility] Meningococcal Polysaccharide (groups A, C, Y and W-135) conjugate vaccine (MCV4P) 2016-10-14 00:00:00 Completed [facility] TDAP 2016-10-14 00:00:00 Completed [facility] Meningococcal Polysaccharide (groups A, C, Y and W-135) conjugate vaccine (MCV4P) 2016-10-14 00:00:00 Completed [facility] TDAP 2016-10-14 00:00:00 Completed [facility] Meningococcal Polysaccharide (groups A, C, Y and W-135) conjugate vaccine (MCV4P) 2016-10-14 00:00:00 Completed [facility] TDAP 2016-10-14 00:00:00 Completed [facility] Meningococcal Polysaccharide (groups A, C, Y and W-135) conjugate vaccine (MCV4P) 2016-10-14 00:00:00 Completed [facility] TDAP 2016-10-14 00:00:00 Completed [facility] Meningococcal Polysaccharide (groups A, C, Y and W-135) conjugate vaccine (MCV4P) 2016-10-14 00:00:00 Completed [facility] TDAP 2016-10-14 00:00:00 Completed [facility] Meningococcal Polysaccharide (groups A, C, Y and W-135) conjugate vaccine (MCV4P) 2016-10-14 00:00:00 Completed [facility] TDAP 2016-10-14 00:00:00 Completed [facility] Meningococcal Polysaccharide (groups A, C, Y and W-135) conjugate vaccine (MCV4P) 2016-10-14 00:00:00 Completed [facility] TDAP 2016-10-14 00:00:00 Completed [facility] Meningococcal Polysaccharide (groups A, C, Y and W-135) conjugate vaccine (MCV4P) 2016-10-14 00:00:00 Completed [facility] TDAP 2016-10-14 00:00:00 Completed [facility] Meningococcal Polysaccharide (groups A, C, Y and W-135) conjugate vaccine (MCV4P) 2016-10-14 00:00:00 Completed [facility] TDAP 2016-10-14 00:00:00 Completed [facility] Meningococcal Polysaccharide (groups A, C, Y and W-135) conjugate vaccine (MCV4P) 2016-10-14 00:00:00 Completed [facility] TDAP 2016-10-14 00:00:00 Completed [facility] Meningococcal Polysaccharide (groups A, C, Y and W-135) conjugate vaccine (MCV4P) 2016-10-14 00:00:00 Completed [facility] TDAP 2016-10-14 00:00:00 Completed [facility] Meningococcal Polysaccharide (groups A, C, Y and W-135) conjugate vaccine (MCV4P) 2016-10-14 00:00:00 Completed [facility] 2016-10-14 00:00:00 Completed [facility] Meningococcal Polysaccharide (groups A, C, Y and W-135) conjugate vaccine (MCV4P) 2016-10-14 00:00:00 Completed [facility] TDAP 2016-10-14 00:00:00 Completed [facility] Meningococcal Polysaccharide (groups A, C, Y and W-135) conjugate vaccine (MCV4P) 2016-10-14 00:00:00 Completed [facility] TDAP 2016-10-14 00:00:00 Completed [facility] Meningococcal Polysaccharide (groups A, C, Y and W-135) conjugate vaccine (MCV4P) 2016-10-14 00:00:00 Completed [facility] TDAP 2016-10-14 00:00:00 Completed [facility] Meningococcal Polysaccharide (groups A, C, Y and W-135) conjugate vaccine (MCV4P) 2016-10-14 00:00:00 Completed [facility] TDAP 2016-10-14 00:00:00 Completed [facility] Meningococcal Polysaccharide (groups A, C, Y and W-135) conjugate vaccine (MCV4P) 2016-10-14 00:00:00 Completed [facility] TDAP 2016-10-14 00:00:00 Completed [facility] Meningococcal Polysaccharide (groups A, C, Y and W-135) conjugate vaccine (MCV4P) 2016-10-14 00:00:00 Completed [facility] TDAP 2016-10-14 00:00:00 Completed [facility] Meningococcal Polysaccharide (groups A, C, Y and W-135) conjugate vaccine (MCV4P) 2016-10-14 00:00:00 Completed [facility] TDAP 2016-10-14 00:00:00 Completed [facility] Meningococcal Polysaccharide (groups A, C, Y and W-135) conjugate vaccine (MCV4P) 2016-10-14 00:00:00 Completed [facility] TDAP 2016-10-14 00:00:00 Completed [facility] Meningococcal Polysaccharide (groups A, C, Y and W-135) conjugate vaccine (MCV4P) 2016-10-14 00:00:00 Completed [facility] TDAP 2016-10-14 00:00:00 Completed [facility] Meningococcal Polysaccharide (groups A, C, Y and W-135) conjugate vaccine (MCV4P) 2016-10-14 00:00:00 Completed [facility] TDAP 2016-10-14 00:00:00 Completed [facility] Meningococcal Polysaccharide (groups A, C, Y and W-135) conjugate vaccine (MCV4P) 2016-10-14 00:00:00 Completed [facility] TDAP 2016-10-14 00:00:00 Completed [facility] Meningococcal Polysaccharide (groups A, C, Y and W-135) conjugate vaccine (MCV4P) 2016-10-14 00:00:00 Completed [facility] TDAP 2016-10-14 00:00:00 Completed [facility] Meningococcal Polysaccharide (groups A, C, Y and W-135) conjugate vaccine (MCV4P) 2016-10-14 [facility] Meningococcal Polysaccharide (groups A, C, Y and W-135) conjugate vaccine (MCV4P) 2016-10-14 00:00:00 Completed [facility] TDAP 2016-10-14 00:00:00 Completed [facility] Meningococcal Polysaccharide (groups A, C, Y and W-135) conjugate vaccine (MCV4P) 2016-10-14 00:00:00 Completed [facility] TDAP 2016-10-14 00:00:00 Completed [facility] Meningococcal Polysaccharide (groups A, C, Y and W-135) conjugate vaccine (MCV4P) 2016-10-14 00:00:00 Completed [facility] TDAP 2016-10-14 00:00:00 Completed [facility] Meningococcal Polysaccharide (groups A, C, Y and W-135) conjugate vaccine (MCV4P) 2016-10-14 00:00:00 Completed [facility] TDAP 2016-10-14 00:00:00 Completed [facility] Meningococcal Polysaccharide (groups A, C, Y and W-135) conjugate vaccine (MCV4P) 2016-10-14 [facility] Meningococcal Polysaccharide (groups A, C, Y and W-135) conjugate vaccine (MCV4P) 2016-10-14 00:00:00 Completed [facility] TDAP 2016-10-14 00:00:00 Completed [facility] Meningococcal Polysaccharide (groups A, C, Y and W-135) conjugate vaccine (MCV4P) 2016-10-14 00:00:00 Completed [facility] TDAP 2016-10-14 00:00:00 Completed [facility] DTAP 2009-07-09 00:00:00 Completed [facility] DTAP 2009-07-09 00:00:00 Completed [facility] DTAP 2009-07-09 00:00:00 Completed [facility] DTAP 2009-07-09 00:00:00 Completed [facility] DTAP 2009-07-09 00:00:00 Completed [facility] DTAP 2009-07-09 00:00:00 Completed [facility] DTAP 2009-07-09 00:00:00 Completed [facility] DTAP 2009-07-09 00:00:00 Completed [facility] DTAP 2009-07-09 00:00:00 Completed [facility] DTAP 2009-07-09 00:00:00 Completed [facility] DTAP 2009-07-09 00:00:00 Completed [facility] DTAP 2009-07-09 00:00:00 Completed [facility] DTAP 2009-07-09 00:00:00 Completed [facility] DTAP 2009-07-09 00:00:00 Completed [facility] DTAP 2009-07-09 00:00:00 Completed [facility] DTAP 2009-07-09 00:00:00 Completed [facility] DTAP 2009-07-09 00:00:00 Completed [facility] DTAP 2009-07-09 00:00:00 Completed [facility] DTAP 2009-07-09 00:00:00 Completed [facility] DTAP 2009-07-09 00:00:00 Completed [facility] DTAP 2009-07-09 00:00:00 Completed [facility] DTAP 2009-07-09 00:00:00 Completed [facility] DTAP 2009-07-09 00:00:00 Completed [facility] DTAP 2009-07-09 00:00:00 Completed [facility] DTAP 2009-07-09 00:00:00 Completed [facility] DTAP 2009-07-09 00:00:00 Completed [facility] DTAP 2009-07-09 00:00:00 Completed [facility] DTAP 2009-07-09 00:00:00 Completed [facility] DTAP 2009-07-09 00:00:00 Completed [facility] DTAP 2009-07-09 00:00:00 Completed [facility] DTAP 2009-07-09 00:00:00 Completed [facility] DTAP 2009-07-09 00:00:00 Completed [facility] DTAP 2009-07-09 00:00:00 Completed [facility] DTAP 2009-07-09 00:00:00 Completed HEPATITIS A 2008-09-08 00:00:00 Completed MMR 2008-09-08 00:00:00 Completed Polio (IPV/OPV) 2008-09-08 00:00:00 Completed Varicella (varivax)(chicken pox) 2008-09-08 00:00:00 Completed HEPATITIS A 2008-09-08 00:00:00 Completed [facility] MMR 2008-09-08 00:00:00 Completed [facility] Polio (IPV/OPV) 2008-09-08 00:00:00 Completed [facility] Varicella (varivax)(chicken pox) 2008-09-08 00:00:00 Completed [facility] HEPATITIS A 2008-09-08 00:00:00 Completed [facility] MMR 2008-09-08 00:00:00 Completed [facility] Polio (IPV/OPV) 2008-09-08 00:00:00 Completed [facility] Varicella (varivax)(chicken pox) 2008-09-08 00:00:00 Completed [facility] HEPATITIS A 2008-09-08 00:00:00 Completed [facility] MMR 2008-09-08 00:00:00 Completed [facility] Polio (IPV/OPV) 2008-09-08 00:00:00 Completed [facility] Varicella (varivax)(chicken pox) 2008-09-08 00:00:00 Completed [facility] HEPATITIS A 2008-09-08 00:00:00 Completed [facility] MMR 2008-09-08 00:00:00 Completed [facility] Polio (IPV/OPV) 2008-09-08 00:00:00 Completed [facility] Varicella (varivax)(chicken pox) 2008-09-08 00:00:00 Completed [facility] HEPATITIS A 2008-09-08 00:00:00 Completed [facility] MMR 2008-09-08 00:00:00 Completed [facility] Polio (IPV/OPV) 2008-09-08 00:00:00 Completed [facility] Varicella (varivax)(chicken pox) 2008-09-08 00:00:00 Completed [facility] HEPATITIS A 2008-09-08 00:00:00 Completed [facility] MMR 2008-09-08 00:00:00 Completed [facility] Polio (IPV/OPV) 2008-09-08 00:00:00 Completed [facility] Varicella (varivax)(chicken pox) 2008-09-08 00:00:00 Completed [facility] HEPATITIS A 2008-09-08 00:00:00 Completed [facility] MMR 2008-09-08 00:00:00 Completed [facility] Polio (IPV/OPV) 2008-09-08 00:00:00 Completed [facility] Varicella (varivax)(chicken pox) 2008-09-08 00:00:00 Completed [facility] HEPATITIS A 2008-09-08 00:00:00 Completed [facility] MMR 2008-09-08 00:00:00 Completed [facility] Polio (IPV/OPV) 2008-09-08 00:00:00 Completed [facility] Varicella (varivax)(chicken pox) 2008-09-08 00:00:00 Completed [facility] HEPATITIS A 2008-09-08 00:00:00 Completed [facility] MMR 2008-09-08 00:00:00 Completed [facility] Polio (IPV/OPV) 2008-09-08 00:00:00 Completed [facility] Varicella (varivax)(chicken pox) 2008-09-08 00:00:00 Completed [facility] HEPATITIS A 2008-09-08 00:00:00 Completed [facility] MMR 2008-09-08 00:00:00 Completed [facility] Polio (IPV/OPV) 2008-09-08 00:00:00 Completed [facility] Varicella (varivax)(chicken pox) 2008-09-08 00:00:00 Completed [facility] HEPATITIS A 2008-09-08 00:00:00 Completed [facility] MMR 2008-09-08 00:00:00 Completed [facility] Polio (IPV/OPV) 2008-09-08 00:00:00 Completed [facility] Varicella (varivax)(chicken pox) 2008-09-08 00:00:00 Completed [facility] HEPATITIS A 2008-09-08 00:00:00 Completed [facility] MMR 2008-09-08 00:00:00 Completed [facility] Polio (IPV/OPV) 2008-09-08 00:00:00 Completed [facility] Varicella (varivax)(chicken pox) 2008-09-08 00:00:00 Completed [facility] HEPATITIS A 2008-09-08 00:00:00 Completed [facility] MMR 2008-09-08 00:00:00 Completed [facility] Polio (IPV/OPV) 2008-09-08 00:00:00 Completed [facility] Varicella (varivax)(chicken pox) 2008-09-08 00:00:00 Completed [facility] HEPATITIS A 2008-09-08 00:00:00 Completed [facility] MMR 2008-09-08 00:00:00 Completed [facility] Polio (IPV/OPV) 2008-09-08 00:00:00 Completed [facility] Varicella (varivax)(chicken pox) 2008-09-08 00:00:00 Completed [facility] HEPATITIS A 2008-09-08 00:00:00 Completed [facility] MMR 2008-09-08 00:00:00 Completed [facility] Polio (IPV/OPV) 2008-09-08 00:00:00 Completed [facility] Varicella (varivax)(chicken pox) 2008-09-08 00:00:00 Completed [facility] HEPATITIS A 2008-09-08 00:00:00 Completed [facility] MMR 2008-09-08 00:00:00 Completed [facility] Polio (IPV/OPV) 2008-09-08 00:00:00 Completed [facility] Varicella (varivax)(chicken pox) 2008-09-08 00:00:00 Completed [facility] HEPATITIS A 2008-09-08 00:00:00 Completed [facility] MMR 2008-09-08 00:00:00 Completed [facility] Polio (IPV/OPV) 2008-09-08 00:00:00 Completed [facility] Varicella (varivax)(chicken pox) 2008-09-08 00:00:00 Completed [facility] HEPATITIS A 2008-09-08 00:00:00 Completed [facility] 2008-09-08 00:00:00 Completed [facility] Polio (IPV/OPV) 2008-09-08 00:00:00 Completed [facility] Varicella (varivax)(chicken pox) 2008-09-08 00:00:00 Completed [facility] HEPATITIS A 2008-09-08 00:00:00 Completed [facility] MMR 2008-09-08 00:00:00 Completed [facility] Polio (IPV/OPV) 2008-09-08 00:00:00 Completed [facility] Varicella (varivax)(chicken pox) 2008-09-08 00:00:00 Completed [facility] HEPATITIS A 2008-09-08 00:00:00 Completed [facility] MMR 2008-09-08 00:00:00 Completed [facility] Polio (IPV/OPV) 2008-09-08 00:00:00 Completed [facility] Varicella (varivax)(chicken pox) 2008-09-08 00:00:00 Completed [facility] HEPATITIS A 2008-09-08 00:00:00 Completed [facility] MMR 2008-09-08 00:00:00 Completed [facility] Polio (IPV/OPV) 2008-09-08 00:00:00 Completed [facility] Varicella (varivax)(chicken pox) 2008-09-08 00:00:00 Completed [facility] HEPATITIS A 2008-09-08 00:00:00 Completed [facility] MMR 2008-09-08 00:00:00 Completed [facility] Polio (IPV/OPV) 2008-09-08 00:00:00 Completed [facility] Varicella (varivax)(chicken pox) 2008-09-08 00:00:00 Completed [facility] HEPATITIS A 2008-09-08 00:00:00 Completed [facility] MMR 2008-09-08 00:00:00 Completed [facility] Polio (IPV/OPV) 2008-09-08 00:00:00 Completed [facility] Varicella (varivax)(chicken pox) 2008-09-08 00:00:00 Completed [facility] HEPATITIS A 2008-09-08 00:00:00 Completed [facility] 2008-09-08 00:00:00 Completed [facility] Polio (IPV/OPV) 2008-09-08 00:00:00 Completed [facility] Varicella (varivax)(chicken pox) 2008-09-08 00:00:00 Completed [facility] HEPATITIS A 2008-09-08 00:00:00 Completed [facility] MMR 2008-09-08 00:00:00 Completed [facility] Polio (IPV/OPV) 2008-09-08 00:00:00 Completed [facility] Varicella (varivax)(chicken pox) 2008-09-08 00:00:00 Completed [facility] HEPATITIS A 2008-09-08 00:00:00 Completed [facility] MMR 2008-09-08 00:00:00 Completed [facility] Polio (IPV/OPV) 2008-09-08 00:00:00 Completed [facility] Varicella (varivax)(chicken pox) 2008-09-08 00:00:00 Completed [facility] HEPATITIS A 2008-09-08 00:00:00 Completed [facility] MMR 2008-09-08 00:00:00 Completed [facility] Polio (IPV/OPV) 2008-09-08 00:00:00 Completed [facility] Varicella (varivax)(chicken pox) 2008-09-08 00:00:00 Completed [facility] HEPATITIS A 2008-09-08 00:00:00 Completed [facility] MMR 2008-09-08 00:00:00 Completed [facility] Polio (IPV/OPV) 2008-09-08 00:00:00 Completed [facility] Varicella (varivax)(chicken pox) 2008-09-08 00:00:00 Completed [facility] HEPATITIS A 2008-09-08 00:00:00 Completed [facility] MMR 2008-09-08 00:00:00 Completed [facility] Polio (IPV/OPV) 2008-09-08 00:00:00 Completed [facility] Varicella (varivax)(chicken pox) 2008-09-08 00:00:00 Completed [facility] HEPATITIS A 2008-09-08 00:00:00 Completed [facility] 2008-09-08 00:00:00 Completed [facility] Polio (IPV/OPV) 2008-09-08 00:00:00 Completed [facility] Varicella (varivax)(chicken pox) 2008-09-08 00:00:00 Completed [facility] HEPATITIS A 2008-09-08 00:00:00 Completed [facility] MMR 2008-09-08 00:00:00 Completed [facility] Polio (IPV/OPV) 2008-09-08 00:00:00 Completed [facility] Varicella (varivax)(chicken pox) 2008-09-08 00:00:00 Completed [facility] HEPATITIS A 2008-09-08 00:00:00 Completed [facility] MMR 2008-09-08 00:00:00 Completed [facility] Polio (IPV/OPV) 2008-09-08 00:00:00 Completed [facility] Varicella (varivax)(chicken pox) 2008-09-08 00:00:00 Completed [facility] HEPATITIS A 2008-09-08 00:00:00 Completed [facility] MMR 2008-09-08 00:00:00 Completed [facility] Polio (IPV/OPV) 2008-09-08 00:00:00 Completed [facility] Varicella (varivax)(chicken pox) 2008-09-08 00:00:00 Completed [facility] HIB 4 Dose Schedule 2006-07-01 00:00:00 Completed HEPATITIS A 2006-07-01 00:00:00 Completed DTAP 2006-07-01 00:00:00 Completed [facility] HIB 4 Dose Schedule 2006-07-01 00:00:00 Completed [facility] HEPATITIS A 2006-07-01 00:00:00 Completed [facility] DTAP 2006-07-01 00:00:00 Completed [facility] HIB 4 Dose Schedule 2006-07-01 00:00:00 Completed [facility] HEPATITIS A 2006-07-01 00:00:00 Completed [facility] DTAP 2006-07-01 00:00:00 Completed [facility] HIB 4 Dose Schedule 2006-07-01 00:00:00 Completed [facility] HEPATITIS A 2006-07-01 00:00:00 Completed [facility] DTAP 2006-07-01 00:00:00 Completed [facility] HIB 4 Dose Schedule 2006-07-01 00:00:00 Completed [facility] HEPATITIS A 2006-07-01 00:00:00 Completed [facility] DTAP 2006-07-01 00:00:00 Completed [facility] HIB 4 Dose Schedule 2006-07-01 00:00:00 Completed [facility] HEPATITIS A 2006-07-01 00:00:00 Completed [facility] DTAP 2006-07-01 00:00:00 Completed [facility] HIB 4 Dose Schedule 2006-07-01 00:00:00 Completed [facility] HEPATITIS A 2006-07-01 00:00:00 Completed [facility] DTAP 2006-07-01 00:00:00 Completed [facility] HIB 4 Dose Schedule 2006-07-01 00:00:00 Completed [facility] HEPATITIS A 2006-07-01 00:00:00 Completed [facility] DTAP 2006-07-01 00:00:00 Completed [facility] HIB 4 Dose Schedule 2006-07-01 00:00:00 Completed [facility] HEPATITIS A 2006-07-01 00:00:00 Completed [facility] DTAP 2006-07-01 00:00:00 Completed [facility] HIB 4 Dose Schedule 2006-07-01 00:00:00 Completed [facility] HEPATITIS A 2006-07-01 00:00:00 Completed [facility] DTAP 2006-07-01 00:00:00 Completed [facility] HIB 4 Dose Schedule 2006-07-01 00:00:00 Completed [facility] HEPATITIS A 2006-07-01 00:00:00 Completed [facility] DTAP 2006-07-01 00:00:00 Completed [facility] HIB 4 Dose Schedule 2006-07-01 00:00:00 Completed [facility] HEPATITIS A 2006-07-01 00:00:00 Completed [facility] DTAP 2006-07-01 00:00:00 Completed [facility] HIB 4 Dose Schedule 2006-07-01 00:00:00 Completed [facility] HEPATITIS A 2006-07-01 00:00:00 Completed [facility] DTAP 2006-07-01 00:00:00 Completed [facility] HIB 4 Dose Schedule 2006-07-01 00:00:00 Completed [facility] HEPATITIS A 2006-07-01 00:00:00 Completed [facility] DTAP 2006-07-01 00:00:00 Completed [facility] HIB 4 Dose Schedule 2006-07-01 00:00:00 Completed [facility] HEPATITIS A 2006-07-01 00:00:00 Completed [facility] DTAP 2006-07-01 00:00:00 Completed [facility] HIB 4 Dose Schedule 2006-07-01 00:00:00 Completed [facility] HEPATITIS A 2006-07-01 00:00:00 Completed [facility] DTAP 2006-07-01 00:00:00 Completed [facility] HIB 4 Dose Schedule 2006-07-01 00:00:00 Completed [facility] HEPATITIS A 2006-07-01 00:00:00 Completed [facility] DTAP 2006-07-01 00:00:00 Completed [facility] HIB 4 Dose Schedule 2006-07-01 00:00:00 Completed [facility] HEPATITIS A 2006-07-01 00:00:00 Completed [facility] DTAP 2006-07-01 00:00:00 Completed [facility] HIB 4 Dose Schedule 2006-07-01 00:00:00 Completed [facility] HEPATITIS A 2006-07-01 00:00:00 Completed [facility] DTAP 2006-07-01 00:00:00 [facility] HIB 4 Dose Schedule 2006-07-01 00:00:00 Completed [facility] HEPATITIS A 2006-07-01 00:00:00 Completed [facility] DTAP 2006-07-01 00:00:00 Completed [facility] HIB 4 Dose Schedule 2006-07-01 00:00:00 Completed [facility] HEPATITIS A 2006-07-01 00:00:00 Completed [facility] DTAP 2006-07-01 00:00:00 Completed [facility] HIB 4 Dose Schedule 2006-07-01 00:00:00 Completed [facility] HEPATITIS A 2006-07-01 00:00:00 Completed [facility] DTAP 2006-07-01 00:00:00 Completed [facility] HIB 4 Dose Schedule 2006-07-01 00:00:00 Completed [facility] HEPATITIS A 2006-07-01 00:00:00 Completed [facility] DTAP 2006-07-01 00:00:00 Completed [facility] HIB 4 Dose Schedule 2006-07-01 00:00:00 Completed [facility] HEPATITIS A 2006-07-01 00:00:00 Completed [facility] DTAP 2006-07-01 00:00:00 Completed [facility] HIB 4 Dose Schedule 2006-07-01 00:00:00 Completed [facility] HEPATITIS A 2006-07-01 00:00:00 Completed [facility] DTAP 2006-07-01 00:00:00 Completed [facility] HIB 4 Dose Schedule 2006-07-01 00:00:00 Completed [facility] HEPATITIS A 2006-07-01 00:00:00 Completed [facility] DTAP 2006-07-01 00:00:00 Completed [facility] HIB 4 Dose Schedule 2006-07-01 00:00:00 Completed [facility] HEPATITIS A 2006-07-01 00:00:00 Completed [facility] DTAP 2006-07-01 00:00:00 Completed [facility] HIB 4 Dose Schedule 2006-07-01 00:00:00 Completed [facility] HEPATITIS A 2006-07-01 00:00:00 Completed [facility] DTAP 2006-07-01 00:00:00 Completed [facility] HIB 4 Dose Schedule 2006-07-01 00:00:00 Completed [facility] HEPATITIS A 2006-07-01 00:00:00 Completed [facility] DTAP 2006-07-01 00:00:00 Completed [facility] HIB 4 Dose Schedule 2006-07-01 00:00:00 Completed [facility] HEPATITIS A 2006-07-01 00:00:00 Completed [facility] DTAP 2006-07-01 00:00:00 Completed [facility] HIB 4 Dose Schedule 2006-07-01 00:00:00 Completed [facility] HEPATITIS A 2006-07-01 00:00:00 Completed [facility] DTAP 2006-07-01 00:00:00 Completed [facility] HIB 4 Dose Schedule 2006-07-01 00:00:00 Completed [facility] HEPATITIS A 2006-07-01 00:00:00 Completed [facility] DTAP 2006-07-01 00:00:00 Completed [facility] HIB 4 Dose Schedule 2006-07-01 00:00:00 Completed [facility] HEPATITIS A 2006-07-01 00:00:00 Completed [facility] DTAP 2006-07-01 00:00:00 Completed [facility] HIB 4 Dose Schedule 2006-07-01 00:00:00 Completed [facility] HEPATITIS A 2006-07-01 00:00:00 Completed [facility] DTAP 2006-07-01 00:00:00 Completed [facility] 2005-11-19 00:00:00 Completed Pneumococcal 13 Conjugate, PCV13 (Prevnar 13) 2005-11-19 00:00:00 Completed [facility] 2005-11-19 00:00:00 Completed [facility] Pneumococcal 13 Conjugate, PCV13 (Prevnar 13) 2005-11-19 00:00:00 Completed [facility] 2005-11-19 00:00:00 Completed [facility] Pneumococcal 13 Conjugate, PCV13 (Prevnar 13) 2005-11-19 00:00:00 Completed [facility] 2005-11-19 00:00:00 Completed [facility] Pneumococcal 13 Conjugate, PCV13 (Prevnar 13) 2005-11-19 00:00:00 Completed [facility] 2005-11-19 00:00:00 Completed [facility] Pneumococcal 13 Conjugate, PCV13 (Prevnar 13) 2005-11-19 00:00:00 Completed [facility] 2005-11-19 00:00:00 Completed [facility] Pneumococcal 13 Conjugate, PCV13 (Prevnar 13) 2005-11-19 00:00:00 Completed [facility] 2005-11-19 00:00:00 Completed [facility] Pneumococcal 13 Conjugate, PCV13 (Prevnar 13) 2005-11-19 00:00:00 Completed [facility] 2005-11-19 00:00:00 Completed [facility] Pneumococcal 13 Conjugate, PCV13 (Prevnar 13) 2005-11-19 00:00:00 Completed [facility] 2005-11-19 00:00:00 Completed [facility] Pneumococcal 13 Conjugate, PCV13 (Prevnar 13) 2005-11-19 00:00:00 Completed [facility] 2005-11-19 00:00:00 Completed [facility] Pneumococcal 13 Conjugate, PCV13 (Prevnar 13) 2005-11-19 00:00:00 Completed [facility] 2005-11-19 00:00:00 Completed [facility] Pneumococcal 13 Conjugate, PCV13 (Prevnar 13) 2005-11-19 00:00:00 Completed [facility] 2005-11-19 00:00:00 Completed [facility] Pneumococcal 13 Conjugate, PCV13 (Prevnar 13) 2005-11-19 00:00:00 Completed [facility] 2005-11-19 00:00:00 Completed [facility] Pneumococcal 13 Conjugate, PCV13 (Prevnar 13) 2005-11-19 00:00:00 Completed [facility] 2005-11-19 00:00:00 Completed [facility] Pneumococcal 13 Conjugate, PCV13 (Prevnar 13) 2005-11-19 00:00:00 Completed [facility] 2005-11-19 00:00:00 Completed [facility] Pneumococcal 13 Conjugate, PCV13 (Prevnar 13) 2005-11-19 00:00:00 Completed [facility] 2005-11-19 00:00:00 Completed [facility] Pneumococcal 13 Conjugate, PCV13 (Prevnar 13) 2005-11-19 00:00:00 Completed [facility] 2005-11-19 00:00:00 Completed [facility] Pneumococcal 13 Conjugate, PCV13 (Prevnar 13) 2005-11-19 00:00:00 Completed [facility] 2005-11-19 00:00:00 Completed [facility] Pneumococcal 13 Conjugate, PCV13 (Prevnar 13) 2005-11-19 00:00:00 Completed [facility] 2005-11-19 00:00:00 Completed [facility] Pneumococcal 13 Conjugate, PCV13 (Prevnar 13) 2005-11-19 00:00:00 Completed [facility] 2005-11-19 00:00:00 Completed [facility] Pneumococcal 13 Conjugate, PCV13 (Prevnar 13) 2005-11-19 00:00:00 Completed [facility] 2005-11-19 00:00:00 Completed [facility] Pneumococcal 13 Conjugate, PCV13 (Prevnar 13) 2005-11-19 00:00:00 Completed [facility] 2005-11-19 00:00:00 Completed [facility] Pneumococcal 13 Conjugate, PCV13 (Prevnar 13) 2005-11-19 00:00:00 Completed [facility] 2005-11-19 00:00:00 Completed [facility] Pneumococcal 13 Conjugate, PCV13 (Prevnar 13) 2005-11-19 00:00:00 Completed [facility] 2005-11-19 00:00:00 Completed [facility] Pneumococcal 13 Conjugate, PCV13 (Prevnar 13) 2005-11-19 00:00:00 Completed [facility] 2005-11-19 00:00:00 Completed [facility] Pneumococcal 13 Conjugate, PCV13 (Prevnar 13) 2005-11-19 00:00:00 Completed [facility] 2005-11-19 00:00:00 Completed [facility] Pneumococcal 13 Conjugate, PCV13 (Prevnar 13) 2005-11-19 00:00:00 Completed [facility] 2005-11-19 00:00:00 Completed [facility] Pneumococcal 13 Conjugate, PCV13 (Prevnar 13) 2005-11-19 00:00:00 Completed [facility] 2005-11-19 00:00:00 Completed [facility] Pneumococcal 13 Conjugate, PCV13 (Prevnar 13) 2005-11-19 00:00:00 Completed [facility] 2005-11-19 00:00:00 Completed [facility] Pneumococcal 13 Conjugate, PCV13 (Prevnar 13) 2005-11-19 00:00:00 Completed [facility] 2005-11-19 00:00:00 Completed [facility] Pneumococcal 13 Conjugate, PCV13 (Prevnar 13) 2005-11-19 00:00:00 Completed [facility] 2005-11-19 00:00:00 Completed [facility] Pneumococcal 13 Conjugate, PCV13 (Prevnar 13) 2005-11-19 00:00:00 Completed [facility] 2005-11-19 00:00:00 Completed [facility] Pneumococcal 13 Conjugate, PCV13 (Prevnar 13) 2005-11-19 00:00:00 Completed [facility] 2005-11-19 00:00:00 Completed [facility] Pneumococcal 13 Conjugate, PCV13 (Prevnar 13) 2005-11-19 00:00:00 Completed [facility] 2005-11-19 00:00:00 Completed [facility] Pneumococcal 13 Conjugate, PCV13 (Prevnar 13) 2005-11-19 00:00:00 Completed [facility] Varicella (varivax)(chicken pox) 2005-08-20 00:00:00 Completed Varicella (varivax)(chicken pox) 2005-08-20 00:00:00 Completed [facility] Varicella (varivax)(chicken pox) 2005-08-20 00:00:00 Completed [facility] Varicella (varivax)(chicken pox) 2005-08-20 00:00:00 Completed [facility] Varicella (varivax)(chicken pox) 2005-08-20 00:00:00 Completed [facility] Varicella (varivax)(chicken pox) 2005-08-20 00:00:00 Completed [facility] Varicella (varivax)(chicken pox) 2005-08-20 00:00:00 Completed [facility] Varicella (varivax)(chicken pox) 2005-08-20 00:00:00 Completed [facility] Varicella (varivax)(chicken pox) 2005-08-20 00:00:00 Completed [facility] Varicella (varivax)(chicken pox) 2005-08-20 00:00:00 Completed [facility] Varicella (varivax)(chicken pox) 2005-08-20 00:00:00 Completed [facility] Varicella (varivax)(chicken pox) 2005-08-20 00:00:00 Completed [facility] Varicella (varivax)(chicken pox) 2005-08-20 00:00:00 Completed [facility] Varicella (varivax)(chicken pox) 2005-08-20 00:00:00 Completed [facility] Varicella (varivax)(chicken pox) 2005-08-20 00:00:00 Completed [facility] Varicella (varivax)(chicken pox) 2005-08-20 00:00:00 Completed [facility] Varicella (varivax)(chicken pox) 2005-08-20 00:00:00 Completed [facility] Varicella (varivax)(chicken pox) 2005-08-20 00:00:00 Completed [facility] Varicella (varivax)(chicken pox) 2005-08-20 00:00:00 Completed [facility] Varicella (varivax)(chicken pox) 2005-08-20 00:00:00 Completed [facility] Varicella (varivax)(chicken pox) 2005-08-20 00:00:00 Completed [facility] Varicella (varivax)(chicken pox) 2005-08-20 00:00:00 Completed [facility] Varicella (varivax)(chicken pox) 2005-08-20 00:00:00 Completed [facility] Varicella (varivax)(chicken pox) 2005-08-20 00:00:00 Completed [facility] Varicella (varivax)(chicken pox) 2005-08-20 00:00:00 Completed [facility] Varicella (varivax)(chicken pox) 2005-08-20 00:00:00 Completed [facility] Varicella (varivax)(chicken pox) 2005-08-20 00:00:00 Completed [facility] Varicella (varivax)(chicken pox) 2005-08-20 00:00:00 Completed [facility] Varicella (varivax)(chicken pox) 2005-08-20 00:00:00 Completed [facility] Varicella (varivax)(chicken pox) 2005-08-20 00:00:00 Completed [facility] Varicella (varivax)(chicken pox) 2005-08-20 00:00:00 Completed [facility] Varicella (varivax)(chicken pox) 2005-08-20 00:00:00 Completed [facility] Varicella (varivax)(chicken pox) 2005-08-20 00:00:00 Completed [facility] Varicella (varivax)(chicken pox) 2005-08-20 00:00:00 Completed [facility] HIB 4 Dose Schedule 2005-02-27 00:00:00 Completed Hep B, Adol or Pedi Dosage 2005-02-27 00:00:00 Completed Pneumococcal 13 Conjugate, PCV13 (Prevnar 13) 2005-02-27 00:00:00 Completed Polio (IPV/OPV) 2005-02-27 00:00:00 Completed DTAP 2005-02-27 00:00:00 Completed [facility] HIB 4 Dose Schedule 2005-02-27 00:00:00 Completed [facility] Hep B, Adol or Pedi Dosage 2005-02-27 00:00:00 Completed [facility] Pneumococcal 13 Conjugate, PCV13 (Prevnar 13) 2005-02-27 00:00:00 Completed [facility] Polio (IPV/OPV) 2005-02-27 00:00:00 Completed [facility] DTAP 2005-02-27 00:00:00 Completed [facility] HIB 4 Dose Schedule 2005-02-27 00:00:00 Completed [facility] Hep B, Adol or Pedi Dosage 2005-02-27 00:00:00 Completed [facility] Pneumococcal 13 Conjugate, PCV13 (Prevnar 13) 2005-02-27 00:00:00 Completed [facility] Polio (IPV/OPV) 2005-02-27 00:00:00 Completed [facility] DTAP 2005-02-27 00:00:00 Completed [facility] HIB 4 Dose Schedule 2005-02-27 00:00:00 Completed [facility] Hep B, Adol or Pedi Dosage 2005-02-27 00:00:00 Completed [facility] Pneumococcal 13 Conjugate, PCV13 (Prevnar 13) 2005-02-27 00:00:00 Completed [facility] Polio (IPV/OPV) 2005-02-27 00:00:00 Completed [facility] DTAP 2005-02-27 00:00:00 Completed [facility] HIB 4 Dose Schedule 2005-02-27 00:00:00 Completed [facility] Hep B, Adol or Pedi Dosage 2005-02-27 00:00:00 Completed [facility] Pneumococcal 13 Conjugate, PCV13 (Prevnar 13) 2005-02-27 00:00:00 Completed [facility] Polio (IPV/OPV) 2005-02-27 00:00:00 Completed [facility] DTAP 2005-02-27 00:00:00 Completed [facility] HIB 4 Dose Schedule 2005-02-27 00:00:00 Completed [facility] Hep B, Adol or Pedi Dosage 2005-02-27 00:00:00 Completed [facility] Pneumococcal 13 Conjugate, PCV13 (Prevnar 13) 2005-02-27 00:00:00 Completed [facility] Polio (IPV/OPV) 2005-02-27 00:00:00 Completed [facility] DTAP 2005-02-27 00:00:00 Completed [facility] HIB 4 Dose Schedule 2005-02-27 00:00:00 Completed [facility] Hep B, Adol or Pedi Dosage 2005-02-27 00:00:00 Completed [facility] Pneumococcal 13 Conjugate, PCV13 (Prevnar 13) 2005-02-27 00:00:00 Completed [facility] Polio (IPV/OPV) 2005-02-27 00:00:00 Completed [facility] DTAP 2005-02-27 00:00:00 Completed [facility] HIB 4 Dose Schedule 2005-02-27 00:00:00 Completed [facility] Hep B, Adol or Pedi Dosage 2005-02-27 00:00:00 Completed [facility] Pneumococcal 13 Conjugate, PCV13 (Prevnar 13) 2005-02-27 00:00:00 Completed [facility] Polio (IPV/OPV) 2005-02-27 00:00:00 Completed [facility] DTAP 2005-02-27 00:00:00 Completed [facility] HIB 4 Dose Schedule 2005-02-27 00:00:00 Completed [facility] Hep B, Adol or Pedi Dosage 2005-02-27 00:00:00 Completed [facility] Pneumococcal 13 Conjugate, PCV13 (Prevnar 13) 2005-02-27 00:00:00 Completed [facility] Polio (IPV/OPV) 2005-02-27 00:00:00 Completed [facility] DTAP 2005-02-27 00:00:00 Completed [facility] HIB 4 Dose Schedule 2005-02-27 00:00:00 Completed [facility] Hep B, Adol or Pedi Dosage 2005-02-27 00:00:00 Completed [facility] Pneumococcal 13 Conjugate, PCV13 (Prevnar 13) 2005-02-27 00:00:00 Completed [facility] Polio (IPV/OPV) 2005-02-27 00:00:00 Completed [facility] DTAP 2005-02-27 00:00:00 Completed [facility] HIB 4 Dose Schedule 2005-02-27 00:00:00 Completed [facility] Hep B, Adol or Pedi Dosage 2005-02-27 00:00:00 Completed [facility] Pneumococcal 13 Conjugate, PCV13 (Prevnar 13) 2005-02-27 00:00:00 Completed [facility] Polio (IPV/OPV) 2005-02-27 00:00:00 Completed [facility] DTAP 2005-02-27 00:00:00 Completed [facility] HIB 4 Dose Schedule 2005-02-27 00:00:00 Completed [facility] Hep B, Adol or Pedi Dosage 2005-02-27 00:00:00 Completed [facility] Pneumococcal 13 Conjugate, PCV13 (Prevnar 13) 2005-02-27 00:00:00 Completed [facility] Polio (IPV/OPV) 2005-02-27 00:00:00 Completed [facility] DTAP 2005-02-27 00:00:00 Completed [facility] HIB 4 Dose Schedule 2005-02-27 00:00:00 Completed [facility] Hep B, Adol or Pedi Dosage 2005-02-27 00:00:00 Completed [facility] Pneumococcal 13 Conjugate, PCV13 (Prevnar 13) 2005-02-27 00:00:00 Completed [facility] Polio (IPV/OPV) 2005-02-27 00:00:00 Completed [facility] DTAP 2005-02-27 00:00:00 Completed [facility] HIB 4 Dose Schedule 2005-02-27 00:00:00 Completed [facility] Hep B, Adol or Pedi Dosage 2005-02-27 00:00:00 Completed [facility] Pneumococcal 13 Conjugate, PCV13 (Prevnar 13) 2005-02-27 00:00:00 Completed [facility] Polio (IPV/OPV) 2005-02-27 00:00:00 Completed [facility] DTAP 2005-02-27 00:00:00 Completed [facility] HIB 4 Dose Schedule 2005-02-27 00:00:00 Completed [facility] Hep B, Adol or Pedi Dosage 2005-02-27 00:00:00 Completed [facility] Pneumococcal 13 Conjugate, PCV13 (Prevnar 13) 2005-02-27 00:00:00 Completed [facility] Polio (IPV/OPV) 2005-02-27 00:00:00 Completed [facility] DTAP 2005-02-27 00:00:00 Completed [facility] HIB 4 Dose Schedule 2005-02-27 00:00:00 Completed [facility] Hep B, Adol or Pedi Dosage 2005-02-27 00:00:00 Completed [facility] Pneumococcal 13 Conjugate, PCV13 (Prevnar 13) 2005-02-27 00:00:00 Completed [facility] Polio (IPV/OPV) 2005-02-27 00:00:00 Completed [facility] DTAP 2005-02-27 00:00:00 Completed [facility] HIB 4 Dose Schedule 2005-02-27 00:00:00 Completed [facility] Hep B, Adol or Pedi Dosage 2005-02-27 00:00:00 Completed [facility] Pneumococcal 13 Conjugate, PCV13 (Prevnar 13) 2005-02-27 00:00:00 Completed [facility] Polio (IPV/OPV) 2005-02-27 00:00:00 Completed [facility] DTAP 2005-02-27 00:00:00 Completed [facility] HIB 4 Dose Schedule 2005-02-27 00:00:00 Completed [facility] Hep B, Adol or Pedi Dosage 2005-02-27 00:00:00 Completed [facility] Pneumococcal 13 Conjugate, PCV13 (Prevnar 13) 2005-02-27 00:00:00 Completed [facility] Polio (IPV/OPV) 2005-02-27 00:00:00 Completed [facility] DTAP 2005-02-27 00:00:00 Completed [facility] HIB 4 Dose Schedule 2005-02-27 00:00:00 Completed [facility] Hep B, Adol or Pedi Dosage 2005-02-27 00:00:00 Completed [facility] Pneumococcal 13 Conjugate, PCV13 (Prevnar 13) 2005-02-27 00:00:00 Completed [facility] Polio (IPV/OPV) 2005-02-27 00:00:00 Completed [facility] DTAP 2005-02-27 00:00:00 Completed [facility] HIB 4 Dose Schedule 2005-02-27 00:00:00 Completed [facility] Hep B, Adol or Pedi Dosage 2005-02-27 00:00:00 Completed [facility] Pneumococcal 13 Conjugate, PCV13 (Prevnar 13) 2005-02-27 00:00:00 Completed [facility] Polio (IPV/OPV) 2005-02-27 00:00:00 Completed [facility] DTAP 2005-02-27 00:00:00 Completed [facility] HIB 4 Dose Schedule 2005-02-27 00:00:00 Completed [facility] Hep B, Adol or Pedi Dosage 2005-02-27 00:00:00 Completed [facility] Pneumococcal 13 Conjugate, PCV13 (Prevnar 13) 2005-02-27 00:00:00 Completed [facility] Polio (IPV/OPV) 2005-02-27 00:00:00 Completed [facility] DTAP 2005-02-27 00:00:00 Completed [facility] HIB 4 Dose Schedule 2005-02-27 00:00:00 Completed [facility] Hep B, Adol or Pedi Dosage 2005-02-27 00:00:00 Completed [facility] Pneumococcal 13 Conjugate, PCV13 (Prevnar 13) 2005-02-27 00:00:00 Completed [facility] Polio (IPV/OPV) 2005-02-27 00:00:00 Completed [facility] DTAP 2005-02-27 00:00:00 Completed [facility] HIB 4 Dose Schedule 2005-02-27 00:00:00 Completed [facility] Hep B, Adol or Pedi Dosage 2005-02-27 00:00:00 Completed [facility] Pneumococcal 13 Conjugate, PCV13 (Prevnar 13) 2005-02-27 00:00:00 Completed [facility] Polio (IPV/OPV) 2005-02-27 00:00:00 Completed [facility] DTAP 2005-02-27 00:00:00 Completed [facility] HIB 4 Dose Schedule 2005-02-27 00:00:00 Completed [facility] Hep B, Adol or Pedi Dosage 2005-02-27 00:00:00 Completed [facility] Pneumococcal 13 Conjugate, PCV13 (Prevnar 13) 2005-02-27 00:00:00 Completed [facility] Polio (IPV/OPV) 2005-02-27 00:00:00 Completed [facility] DTAP 2005-02-27 00:00:00 Completed [facility] HIB 4 Dose Schedule 2005-02-27 00:00:00 Completed [facility] Hep B, Adol or Pedi Dosage 2005-02-27 00:00:00 Completed [facility] Pneumococcal 13 Conjugate, PCV13 (Prevnar 13) 2005-02-27 00:00:00 Completed [facility] Polio (IPV/OPV) 2005-02-27 00:00:00 Completed [facility] DTAP 2005-02-27 00:00:00 Completed [facility] HIB 4 Dose Schedule 2005-02-27 00:00:00 Completed [facility] Hep B, Adol or Pedi Dosage 2005-02-27 00:00:00 Completed [facility] Pneumococcal 13 Conjugate, PCV13 (Prevnar 13) 2005-02-27 00:00:00 Completed [facility] Polio (IPV/OPV) 2005-02-27 00:00:00 Completed [facility] DTAP 2005-02-27 00:00:00 Completed [facility] HIB 4 Dose Schedule 2005-02-27 00:00:00 Completed [facility] Hep B, Adol or Pedi Dosage 2005-02-27 00:00:00 Completed [facility] Pneumococcal 13 Conjugate, PCV13 (Prevnar 13) 2005-02-27 00:00:00 Completed [facility] Polio (IPV/OPV) 2005-02-27 00:00:00 Completed [facility] DTAP 2005-02-27 00:00:00 Completed [facility] HIB 4 Dose Schedule 2005-02-27 00:00:00 Completed [facility] Hep B, Adol or Pedi Dosage 2005-02-27 00:00:00 Completed [facility] Pneumococcal 13 Conjugate, PCV13 (Prevnar 13) 2005-02-27 00:00:00 Completed [facility] Polio (IPV/OPV) 2005-02-27 00:00:00 Completed [facility] DTAP 2005-02-27 00:00:00 Completed [facility] HIB 4 Dose Schedule 2005-02-27 00:00:00 Completed [facility] Hep B, Adol or Pedi Dosage 2005-02-27 00:00:00 Completed [facility] Pneumococcal 13 Conjugate, PCV13 (Prevnar 13) 2005-02-27 00:00:00 Completed [facility] Polio (IPV/OPV) 2005-02-27 00:00:00 Completed [facility] DTAP 2005-02-27 00:00:00 Completed [facility] HIB 4 Dose Schedule 2005-02-27 00:00:00 Completed [facility] Hep B, Adol or Pedi Dosage 2005-02-27 00:00:00 Completed [facility] Pneumococcal 13 Conjugate, PCV13 (Prevnar 13) 2005-02-27 00:00:00 Completed [facility] Polio (IPV/OPV) 2005-02-27 00:00:00 Completed [facility] DTAP 2005-02-27 00:00:00 Completed [facility] HIB 4 Dose Schedule 2005-02-27 00:00:00 Completed [facility] Hep B, Adol or Pedi Dosage 2005-02-27 00:00:00 Completed [facility] Pneumococcal 13 Conjugate, PCV13 (Prevnar 13) 2005-02-27 00:00:00 Completed [facility] Polio (IPV/OPV) 2005-02-27 00:00:00 Completed [facility] DTAP 2005-02-27 00:00:00 Completed [facility] HIB 4 Dose Schedule 2005-02-27 00:00:00 Completed [facility] Hep B, Adol or Pedi Dosage 2005-02-27 00:00:00 [facility] [facility] 13 Conjugate, PCV13 (Prevnar 13) 2005-02-27 00:00:00 Completed [facility] Polio (IPV/OPV) 2005-02-27 00:00:00 Completed [facility] DTAP 2005-02-27 00:00:00 Completed [facility] HIB 4 Dose Schedule 2005-02-27 00:00:00 Completed [facility] Hep B, Adol or Pedi Dosage 2005-02-27 00:00:00 Completed [facility] Pneumococcal 13 Conjugate, PCV13 (Prevnar 13) 2005-02-27 00:00:00 Completed [facility] Polio (IPV/OPV) 2005-02-27 00:00:00 Completed [facility] DTAP 2005-02-27 00:00:00 Completed [facility] HIB 4 Dose Schedule 2005-02-27 00:00:00 Completed [facility] Hep B, Adol or Pedi Dosage 2005-02-27 00:00:00 Completed [facility] Pneumococcal 13 Conjugate, PCV13 (Prevnar 13) 2005-02-27 00:00:00 Completed [facility] Polio (IPV/OPV) 2005-02-27 00:00:00 Completed [facility] DTAP 2005-02-27 00:00:00 Completed HIB 4 Dose Schedule 2004 00:00:00 Completed Hep B, Adol or Pedi Dosage 2004 00:00:00 Completed Pneumococcal 13 Conjugate, PCV13 (Prevnar 13) 2004 00:00:00 Completed Polio (IPV/OPV) 2004 00:00:00 Completed DTAP 2004 00:00:00 Completed [facility] HIB 4 Dose Schedule 2004 00:00:00 Completed [facility] Hep B, Adol or Pedi Dosage 2004 00:00:00 Completed [facility] Pneumococcal 13 Conjugate, PCV13 (Prevnar 13) 2004 00:00:00 Completed [facility] Polio (IPV/OPV) 2004 00:00:00 Completed [facility] DTAP 2004 00:00:00 Completed [facility] HIB 4 Dose Schedule 2004 00:00:00 Completed [facility] Hep B, Adol or Pedi Dosage 2004 00:00:00 Completed [facility] Pneumococcal 13 Conjugate, PCV13 (Prevnar 13) 2004 00:00:00 Completed [facility] Polio (IPV/OPV) 2004 00:00:00 Completed [facility] DTAP 2004 00:00:00 Completed [facility] HIB 4 Dose Schedule 2004 00:00:00 Completed [facility] Hep B, Adol or Pedi Dosage 2004 00:00:00 Completed [facility] Pneumococcal 13 Conjugate, PCV13 (Prevnar 13) 2004 00:00:00 Completed [facility] Polio (IPV/OPV) 2004 00:00:00 Completed [facility] DTAP 2004 00:00:00 Completed [facility] HIB 4 Dose Schedule 2004 00:00:00 Completed [facility] Hep B, Adol or Pedi Dosage 2004 00:00:00 Completed [facility] Pneumococcal 13 Conjugate, PCV13 (Prevnar 13) 2004 00:00:00 Completed [facility] Polio (IPV/OPV) 2004 00:00:00 Completed [facility] DTAP 2004 00:00:00 Completed [facility] HIB 4 Dose Schedule 2004 00:00:00 Completed [facility] Hep B, Adol or Pedi Dosage 2004 00:00:00 Completed [facility] Pneumococcal 13 Conjugate, PCV13 (Prevnar 13) 2004 00:00:00 Completed [facility] Polio (IPV/OPV) 2004 00:00:00 Completed [facility] DTAP 2004 00:00:00 Completed [facility] HIB 4 Dose Schedule 2004 00:00:00 Completed [facility] Hep B, Adol or Pedi Dosage 2004 00:00:00 Completed [facility] Pneumococcal 13 Conjugate, PCV13 (Prevnar 13) 2004 00:00:00 Completed [facility] Polio (IPV/OPV) 2004 00:00:00 Completed [facility] DTAP 2004 00:00:00 Completed [facility] HIB 4 Dose Schedule 2004 00:00:00 Completed [facility] Hep B, Adol or Pedi Dosage 2004 00:00:00 Completed [facility] Pneumococcal 13 Conjugate, PCV13 (Prevnar 13) 2004 00:00:00 Completed [facility] Polio (IPV/OPV) 2004 00:00:00 Completed [facility] DTAP 2004 00:00:00 Completed [facility] HIB 4 Dose Schedule 2004 00:00:00 Completed [facility] Hep B, Adol or Pedi Dosage 2004 00:00:00 Completed [facility] Pneumococcal 13 Conjugate, PCV13 (Prevnar 13) 2004 00:00:00 Completed [facility] Polio (IPV/OPV) 2004 00:00:00 Completed [facility] DTAP 2004 00:00:00 Completed [facility] HIB 4 Dose Schedule 2004 00:00:00 Completed [facility] Hep B, Adol or Pedi Dosage 2004 00:00:00 Completed [facility] Pneumococcal 13 Conjugate, PCV13 (Prevnar 13) 2004 00:00:00 Completed [facility] Polio (IPV/OPV) 2004 00:00:00 Completed [facility] DTAP 2004 00:00:00 Completed [facility] HIB 4 Dose Schedule 2004 00:00:00 Completed [facility] Hep B, Adol or Pedi Dosage 2004 00:00:00 Completed [facility] Pneumococcal 13 Conjugate, PCV13 (Prevnar 13) 2004 00:00:00 Completed [facility] Polio (IPV/OPV) 2004 00:00:00 Completed [facility] DTAP 2004 00:00:00 Completed [facility] HIB 4 Dose Schedule 2004 00:00:00 Completed [facility] Hep B, Adol or Pedi Dosage 2004 00:00:00 Completed [facility] Pneumococcal 13 Conjugate, PCV13 (Prevnar 13) 2004 00:00:00 Completed [facility] Polio (IPV/OPV) 2004 00:00:00 Completed [facility] DTAP 2004 00:00:00 Completed [facility] HIB 4 Dose Schedule 2004 00:00:00 Completed [facility] Hep B, Adol or Pedi Dosage 2004 00:00:00 Completed [facility] Pneumococcal 13 Conjugate, PCV13 (Prevnar 13) 2004 00:00:00 Completed [facility] Polio (IPV/OPV) 2004 00:00:00 Completed [facility] DTAP 2004 00:00:00 Completed [facility] HIB 4 Dose Schedule 2004 00:00:00 Completed [facility] Hep B, Adol or Pedi Dosage 2004 00:00:00 Completed [facility] Pneumococcal 13 Conjugate, PCV13 (Prevnar 13) 2004 00:00:00 Completed [facility] Polio (IPV/OPV) 2004 00:00:00 Completed [facility] DTAP 2004 00:00:00 Completed [facility] HIB 4 Dose Schedule 2004 00:00:00 Completed [facility] Hep B, Adol or Pedi Dosage 2004 00:00:00 Completed [facility] Pneumococcal 13 Conjugate, PCV13 (Prevnar 13) 2004 00:00:00 Completed [facility] Polio (IPV/OPV) 2004 00:00:00 Completed [facility] DTAP 2004 00:00:00 Completed [facility] HIB 4 Dose Schedule 2004 00:00:00 Completed [facility] Hep B, Adol or Pedi Dosage 2004 00:00:00 Completed [facility] Pneumococcal 13 Conjugate, PCV13 (Prevnar 13) 2004 00:00:00 Completed [facility] Polio (IPV/OPV) 2004 00:00:00 Completed [facility] DTAP 2004 00:00:00 Completed [facility] HIB 4 Dose Schedule 2004 00:00:00 Completed [facility] Hep B, Adol or Pedi Dosage 2004 00:00:00 Completed [facility] Pneumococcal 13 Conjugate, PCV13 (Prevnar 13) 2004 00:00:00 Completed [facility] Polio (IPV/OPV) 2004 00:00:00 Completed [facility] DTAP 2004 00:00:00 Completed [facility] HIB 4 Dose Schedule 2004 00:00:00 Completed [facility] Hep B, Adol or Pedi Dosage 2004 00:00:00 Completed [facility] Pneumococcal 13 Conjugate, PCV13 (Prevnar 13) 2004 00:00:00 Completed [facility] Polio (IPV/OPV) 2004 00:00:00 Completed [facility] DTAP 2004 00:00:00 Completed [facility] HIB 4 Dose Schedule 2004 00:00:00 Completed [facility] Hep B, Adol or Pedi Dosage 2004 00:00:00 Completed [facility] Pneumococcal 13 Conjugate, PCV13 (Prevnar 13) 2004 00:00:00 Completed [facility] Polio (IPV/OPV) 2004 00:00:00 Completed [facility] DTAP 2004 00:00:00 Completed [facility] HIB 4 Dose Schedule 2004 00:00:00 Completed [facility] Hep B, Adol or Pedi Dosage 2004 00:00:00 Completed [facility] Pneumococcal 13 Conjugate, PCV13 (Prevnar 13) 2004 00:00:00 Completed [facility] Polio (IPV/OPV) 2004 00:00:00 Completed [facility] DTAP 2004 00:00:00 Completed [facility] HIB 4 Dose Schedule 2004 00:00:00 Completed [facility] Hep B, Adol or Pedi Dosage 2004 00:00:00 Completed [facility] Pneumococcal 13 Conjugate, PCV13 (Prevnar 13) 2004 00:00:00 Completed [facility] Polio (IPV/OPV) 2004 00:00:00 Completed [facility] DTAP 2004 00:00:00 Completed [facility] HIB 4 Dose Schedule 2004 00:00:00 Completed [facility] Hep B, Adol or Pedi Dosage 2004 00:00:00 Completed [facility] Pneumococcal 13 Conjugate, PCV13 (Prevnar 13) 2004 00:00:00 Completed [facility] Polio (IPV/OPV) 2004 00:00:00 Completed [facility] DTAP 2004 00:00:00 Completed [facility] HIB 4 Dose Schedule 2004 00:00:00 Completed [facility] Hep B, Adol or Pedi Dosage 2004 00:00:00 Completed [facility] Pneumococcal 13 Conjugate, PCV13 (Prevnar 13) 2004 00:00:00 Completed [facility] Polio (IPV/OPV) 2004 00:00:00 Completed [facility] DTAP 2004 00:00:00 Completed [facility] HIB 4 Dose Schedule 2004 00:00:00 Completed [facility] Hep B, Adol or Pedi Dosage 2004 00:00:00 Completed [facility] Pneumococcal 13 Conjugate, PCV13 (Prevnar 13) 2004 00:00:00 Completed [facility] Polio (IPV/OPV) 2004 00:00:00 Completed [facility] DTAP 2004 00:00:00 Completed [facility] HIB 4 Dose Schedule 2004 00:00:00 Completed [facility] Hep B, Adol or Pedi Dosage 2004 00:00:00 Completed [facility] Pneumococcal 13 Conjugate, PCV13 (Prevnar 13) 2004 00:00:00 Completed [facility] Polio (IPV/OPV) 2004 00:00:00 Completed [facility] DTAP 2004 00:00:00 Completed [facility] HIB 4 Dose Schedule 2004 00:00:00 Completed [facility] Hep B, Adol or Pedi Dosage 2004 00:00:00 Completed [facility] Pneumococcal 13 Conjugate, PCV13 (Prevnar 13) 2004 00:00:00 Completed [facility] Polio (IPV/OPV) 2004 00:00:00 Completed [facility] DTAP 2004 00:00:00 Completed [facility] HIB 4 Dose Schedule 2004 00:00:00 Completed [facility] Hep B, Adol or Pedi Dosage 2004 00:00:00 Completed [facility] Pneumococcal 13 Conjugate, PCV13 (Prevnar 13) 2004 00:00:00 Completed [facility] Polio (IPV/OPV) 2004 00:00:00 Completed [facility] DTAP 2004 00:00:00 Completed [facility] HIB 4 Dose Schedule 2004 00:00:00 Completed [facility] Hep B, Adol or Pedi Dosage 2004 00:00:00 Completed [facility] Pneumococcal 13 Conjugate, PCV13 (Prevnar 13) 2004 00:00:00 Completed [facility] Polio (IPV/OPV) 2004 00:00:00 Completed [facility] DTAP 2004 00:00:00 Completed [facility] HIB 4 Dose Schedule 2004 00:00:00 Completed [facility] Hep B, Adol or Pedi Dosage 2004 00:00:00 Completed [facility] Pneumococcal 13 Conjugate, PCV13 (Prevnar 13) 2004 00:00:00 Completed [facility] Polio (IPV/OPV) 2004 00:00:00 Completed [facility] DTAP 2004 00:00:00 Completed [facility] HIB 4 Dose Schedule 2004 00:00:00 Completed [facility] Hep B, Adol or Pedi Dosage 2004 00:00:00 Completed [facility] Pneumococcal 13 Conjugate, PCV13 (Prevnar 13) 2004 00:00:00 Completed [facility] Polio (IPV/OPV) 2004 00:00:00 Completed [facility] DTAP 2004 00:00:00 Completed [facility] HIB 4 Dose Schedule 2004 00:00:00 Completed [facility] Hep B, Adol or Pedi Dosage 2004 00:00:00 Completed [facility] Pneumococcal 13 Conjugate, PCV13 (Prevnar 13) 2004 00:00:00 Completed [facility] Polio (IPV/OPV) 2004 00:00:00 Completed [facility] DTAP 2004 00:00:00 Completed [facility] HIB 4 Dose Schedule 2004 00:00:00 Completed [facility] Hep B, Adol or Pedi Dosage 2004 00:00:00 Completed [facility] Pneumococcal 13 Conjugate, PCV13 (Prevnar 13) 2004 00:00:00 Completed [facility] Polio (IPV/OPV) 2004 00:00:00 Completed [facility] DTAP 2004 00:00:00 Completed [facility] HIB 4 Dose Schedule 2004 00:00:00 Completed [facility] Hep B, Adol or Pedi Dosage 2004 00:00:00 Completed [facility] Pneumococcal 13 Conjugate, PCV13 (Prevnar 13) 2004 00:00:00 Completed [facility] Polio (IPV/OPV) 2004 00:00:00 Completed [facility] DTAP 2004 00:00:00 Completed [facility] HIB 4 Dose Schedule 2004 00:00:00 Completed [facility] Hep B, Adol or Pedi Dosage 2004 00:00:00 Completed [facility] Pneumococcal 13 Conjugate, PCV13 (Prevnar 13) 2004 00:00:00 Completed [facility] Polio (IPV/OPV) 2004 00:00:00 Completed [facility] DTAP 2004 00:00:00 Completed HIB 4 Dose Schedule 2004 00:00:00 Completed Hep B, Adol or Pedi Dosage 2004 00:00:00 Completed Pneumococcal 13 Conjugate, PCV13 (Prevnar 13) 2004 00:00:00 Completed Polio (IPV/OPV) 2004 00:00:00 Completed DTAP 2004 00:00:00 Completed [facility] HIB 4 Dose Schedule 2004 00:00:00 Completed [facility] Hep B, Adol or Pedi Dosage 2004 00:00:00 Completed [facility] Pneumococcal 13 Conjugate, PCV13 (Prevnar 13) 2004 00:00:00 Completed [facility] Polio (IPV/OPV) 2004 00:00:00 Completed [facility] DTAP 2004 00:00:00 Completed [facility] HIB 4 Dose Schedule 2004 00:00:00 Completed [facility] Hep B, Adol or Pedi Dosage 2004 00:00:00 Completed [facility] Pneumococcal 13 Conjugate, PCV13 (Prevnar 13) 2004 00:00:00 Completed [facility] Polio (IPV/OPV) 2004 00:00:00 Completed [facility] DTAP 2004 00:00:00 Completed [facility] HIB 4 Dose Schedule 2004 00:00:00 Completed [facility] Hep B, Adol or Pedi Dosage 2004 00:00:00 Completed [facility] Pneumococcal 13 Conjugate, PCV13 (Prevnar 13) 2004 00:00:00 Completed [facility] Polio (IPV/OPV) 2004 00:00:00 Completed [facility] DTAP 2004 00:00:00 Completed [facility] HIB 4 Dose Schedule 2004 00:00:00 Completed [facility] Hep B, Adol or Pedi Dosage 2004 00:00:00 Completed [facility] Pneumococcal 13 Conjugate, PCV13 (Prevnar 13) 2004 00:00:00 Completed [facility] Polio (IPV/OPV) 2004 00:00:00 Completed [facility] DTAP 2004 00:00:00 Completed [facility] HIB 4 Dose Schedule 2004 00:00:00 Completed [facility] Hep B, Adol or Pedi Dosage 2004 00:00:00 Completed [facility] Pneumococcal 13 Conjugate, PCV13 (Prevnar 13) 2004 00:00:00 Completed [facility] Polio (IPV/OPV) 2004 00:00:00 Completed [facility] DTAP 2004 00:00:00 Completed [facility] HIB 4 Dose Schedule 2004 00:00:00 Completed [facility] Hep B, Adol or Pedi Dosage 2004 00:00:00 Completed [facility] Pneumococcal 13 Conjugate, PCV13 (Prevnar 13) 2004 00:00:00 Completed [facility] Polio (IPV/OPV) 2004 00:00:00 Completed [facility] DTAP 2004 00:00:00 Completed [facility] HIB 4 Dose Schedule 2004 00:00:00 Completed [facility] Hep B, Adol or Pedi Dosage 2004 00:00:00 Completed [facility] Pneumococcal 13 Conjugate, PCV13 (Prevnar 13) 2004 00:00:00 Completed [facility] Polio (IPV/OPV) 2004 00:00:00 Completed [facility] DTAP 2004 00:00:00 Completed [facility] HIB 4 Dose Schedule 2004 00:00:00 Completed [facility] Hep B, Adol or Pedi Dosage 2004 00:00:00 Completed [facility] Pneumococcal 13 Conjugate, PCV13 (Prevnar 13) 2004 00:00:00 Completed [facility] Polio (IPV/OPV) 2004 00:00:00 Completed [facility] DTAP 2004 00:00:00 Completed [facility] HIB 4 Dose Schedule 2004 00:00:00 Completed [facility] Hep B, Adol or Pedi Dosage 2004 00:00:00 Completed [facility] Pneumococcal 13 Conjugate, PCV13 (Prevnar 13) 2004 00:00:00 Completed [facility] Polio (IPV/OPV) 2004 00:00:00 Completed [facility] DTAP 2004 00:00:00 Completed [facility] HIB 4 Dose Schedule 2004 00:00:00 Completed [facility] Hep B, Adol or Pedi Dosage 2004 00:00:00 Completed [facility] Pneumococcal 13 Conjugate, PCV13 (Prevnar 13) 2004 00:00:00 Completed [facility] Polio (IPV/OPV) 2004 00:00:00 Completed [facility] DTAP 2004 00:00:00 Completed [facility] HIB 4 Dose Schedule 2004 00:00:00 Completed [facility] Hep B, Adol or Pedi Dosage 2004 00:00:00 Completed [facility] Pneumococcal 13 Conjugate, PCV13 (Prevnar 13) 2004 00:00:00 Completed [facility] Polio (IPV/OPV) 2004 00:00:00 Completed [facility] DTAP 2004 00:00:00 Completed [facility] HIB 4 Dose Schedule 2004 00:00:00 Completed [facility] Hep B, Adol or Pedi Dosage 2004 00:00:00 Completed [facility] Pneumococcal 13 Conjugate, PCV13 (Prevnar 13) 2004 00:00:00 Completed [facility] Polio (IPV/OPV) 2004 00:00:00 Completed [facility] DTAP 2004 00:00:00 Completed [facility] HIB 4 Dose Schedule 2004 00:00:00 Completed [facility] Hep B, Adol or Pedi Dosage 2004 00:00:00 Completed [facility] Pneumococcal 13 Conjugate, PCV13 (Prevnar 13) 2004 00:00:00 Completed [facility] Polio (IPV/OPV) 2004 00:00:00 Completed [facility] DTAP 2004 00:00:00 Completed [facility] HIB 4 Dose Schedule 2004 00:00:00 Completed [facility] Hep B, Adol or Pedi Dosage 2004 00:00:00 Completed [facility] Pneumococcal 13 Conjugate, PCV13 (Prevnar 13) 2004 00:00:00 Completed [facility] Polio (IPV/OPV) 2004 00:00:00 Completed [facility] DTAP 2004 00:00:00 Completed [facility] HIB 4 Dose Schedule 2004 00:00:00 Completed [facility] Hep B, Adol or Pedi Dosage 2004 00:00:00 Completed [facility] Pneumococcal 13 Conjugate, PCV13 (Prevnar 13) 2004 00:00:00 Completed [facility] Polio (IPV/OPV) 2004 00:00:00 Completed [facility] DTAP 2004 00:00:00 Completed [facility] HIB 4 Dose Schedule 2004 00:00:00 Completed [facility] Hep B, Adol or Pedi Dosage 2004 00:00:00 Completed [facility] Pneumococcal 13 Conjugate, PCV13 (Prevnar 13) 2004 00:00:00 Completed [facility] Polio (IPV/OPV) 2004 00:00:00 Completed [facility] DTAP 2004 00:00:00 Completed [facility] HIB 4 Dose Schedule 2004 00:00:00 Completed [facility] Hep B, Adol or Pedi Dosage 2004 00:00:00 Completed [facility] Pneumococcal 13 Conjugate, PCV13 (Prevnar 13) 2004 00:00:00 Completed [facility] Polio (IPV/OPV) 2004 00:00:00 Completed [facility] DTAP 2004 00:00:00 Completed [facility] HIB 4 Dose Schedule 2004 00:00:00 Completed [facility] Hep B, Adol or Pedi Dosage 2004 00:00:00 Completed [facility] Pneumococcal 13 Conjugate, PCV13 (Prevnar 13) 2004 00:00:00 Completed [facility] Polio (IPV/OPV) 2004 00:00:00 Completed [facility] DTAP 2004 00:00:00 Completed [facility] HIB 4 Dose Schedule 2004 00:00:00 Completed [facility] Hep B, Adol or Pedi Dosage 2004 00:00:00 Completed [facility] Pneumococcal 13 Conjugate, PCV13 (Prevnar 13) 2004 00:00:00 Completed [facility] Polio (IPV/OPV) 2004 00:00:00 Completed [facility] DTAP 2004 00:00:00 Completed [facility] HIB 4 Dose Schedule 2004 00:00:00 Completed [facility] Hep B, Adol or Pedi Dosage 2004 00:00:00 Completed [facility] Pneumococcal 13 Conjugate, PCV13 (Prevnar 13) 2004 00:00:00 Completed [facility] Polio (IPV/OPV) 2004 00:00:00 Completed [facility] DTAP 2004 00:00:00 Completed [facility] HIB 4 Dose Schedule 2004 00:00:00 Completed [facility] Hep B, Adol or Pedi Dosage 2004 00:00:00 Completed [facility] Pneumococcal 13 Conjugate, PCV13 (Prevnar 13) 2004 00:00:00 Completed [facility] Polio (IPV/OPV) 2004 00:00:00 Completed [facility] DTAP 2004 00:00:00 Completed [facility] HIB 4 Dose Schedule 2004 00:00:00 Completed [facility] Hep B, Adol or Pedi Dosage 2004 00:00:00 Completed [facility] Pneumococcal 13 Conjugate, PCV13 (Prevnar 13) 2004 00:00:00 Completed [facility] Polio (IPV/OPV) 2004 00:00:00 Completed [facility] DTAP 2004 00:00:00 Completed [facility] HIB 4 Dose Schedule 2004 00:00:00 Completed [facility] Hep B, Adol or Pedi Dosage 2004 00:00:00 Completed [facility] Pneumococcal 13 Conjugate, PCV13 (Prevnar 13) 2004 00:00:00 Completed [facility] Polio (IPV/OPV) 2004 00:00:00 Completed [facility] DTAP 2004 00:00:00 Completed [facility] HIB 4 Dose Schedule 2004 00:00:00 Completed [facility] Hep B, Adol or Pedi Dosage 2004 00:00:00 Completed [facility] Pneumococcal 13 Conjugate, PCV13 (Prevnar 13) 2004 00:00:00 Completed [facility] Polio (IPV/OPV) 2004 00:00:00 Completed [facility] DTAP 2004 00:00:00 Completed [facility] HIB 4 Dose Schedule 2004 00:00:00 Completed [facility] Hep B, Adol or Pedi Dosage 2004 00:00:00 Completed [facility] Pneumococcal 13 Conjugate, PCV13 (Prevnar 13) 2004 00:00:00 Completed [facility] Polio (IPV/OPV) 2004 00:00:00 Completed [facility] DTAP 2004 00:00:00 Completed [facility] HIB 4 Dose Schedule 2004 00:00:00 Completed [facility] Hep B, Adol or Pedi Dosage 2004 00:00:00 Completed [facility] Pneumococcal 13 Conjugate, PCV13 (Prevnar 13) 2004 00:00:00 Completed [facility] Polio (IPV/OPV) 2004 00:00:00 Completed [facility] DTAP 2004 00:00:00 Completed [facility] HIB 4 Dose Schedule 2004 00:00:00 Completed [facility] Hep B, Adol or Pedi Dosage 2004 00:00:00 Completed [facility] Pneumococcal 13 Conjugate, PCV13 (Prevnar 13) 2004 00:00:00 Completed [facility] Polio (IPV/OPV) 2004 00:00:00 Completed [facility] DTAP 2004 00:00:00 Completed [facility] HIB 4 Dose Schedule 2004 00:00:00 Completed [facility] Hep B, Adol or Pedi Dosage 2004 00:00:00 Completed [facility] Pneumococcal 13 Conjugate, PCV13 (Prevnar 13) 2004 00:00:00 Completed [facility] Polio (IPV/OPV) 2004 00:00:00 Completed [facility] DTAP 2004 00:00:00 Completed [facility] HIB 4 Dose Schedule 2004 00:00:00 Completed [facility] Hep B, Adol or Pedi Dosage 2004 00:00:00 Completed [facility] Pneumococcal 13 Conjugate, PCV13 (Prevnar 13) 2004 00:00:00 Completed [facility] Polio (IPV/OPV) 2004 00:00:00 Completed [facility] DTAP 2004 00:00:00 Completed [facility] HIB 4 Dose Schedule 2004 00:00:00 Completed [facility] Hep B, Adol or Pedi Dosage 2004 00:00:00 Completed [facility] Pneumococcal 13 Conjugate, PCV13 (Prevnar 13) 2004 00:00:00 Completed [facility] Polio (IPV/OPV) 2004 00:00:00 Completed [facility] DTAP 2004 00:00:00 Completed [facility] HIB 4 Dose Schedule 2004 00:00:00 Completed [facility] Hep B, Adol or Pedi Dosage 2004 00:00:00 Completed [facility] Pneumococcal 13 Conjugate, PCV13 (Prevnar 13) 2004 00:00:00 Completed [facility] Polio (IPV/OPV) 2004 00:00:00 Completed [facility] DTAP 2004 00:00:00 Completed [facility] HIB 4 Dose Schedule 2004 00:00:00 Completed [facility] Hep B, Adol or Pedi Dosage 2004 00:00:00 Completed [facility] Pneumococcal 13 Conjugate, PCV13 (Prevnar 13) 2004 00:00:00 Completed [facility] Polio (IPV/OPV) 2004 00:00:00 Completed [facility] DTAP 2004 00:00:00 Completed [facility] HIB 4 Dose Schedule 2004 00:00:00 Completed [facility] Hep B, Adol or Pedi Dosage 2004 00:00:00 Completed [facility] Pneumococcal 13 Conjugate, PCV13 (Prevnar 13) 2004 00:00:00 Completed [facility] Polio (IPV/OPV) 2004 00:00:00 Completed [facility] DTAP 2004 00:00:00 Completed [facility] Hep B, Adol or Pedi Dosage 2004 00:00:00 Completed Hep B, Adol or Pedi Dosage 2004 00:00:00 Completed [facility] Hep B, Adol or Pedi Dosage 2004 00:00:00 Completed [facility] Hep B, Adol or Pedi Dosage 2004 00:00:00 Completed [facility] Hep B, Adol or Pedi Dosage 2004 00:00:00 Completed [facility] Hep B, Adol or Pedi Dosage 2004 00:00:00 Completed [facility] Hep B, Adol or Pedi Dosage 2004 00:00:00 Completed [facility] Hep B, Adol or Pedi Dosage 2004 00:00:00 Completed [facility] Hep B, Adol or Pedi Dosage 2004 00:00:00 Completed [facility] Hep B, Adol or Pedi Dosage 2004 00:00:00 Completed [facility] Hep B, Adol or Pedi Dosage 2004 00:00:00 Completed [facility] Hep B, Adol or Pedi Dosage 2004 00:00:00 Completed [facility] Hep B, Adol or Pedi Dosage 2004 00:00:00 Completed [facility] Hep B, Adol or Pedi Dosage 2004 00:00:00 Completed [facility] Hep B, Adol or Pedi Dosage 2004 00:00:00 Completed [facility] Hep B, Adol or Pedi Dosage 2004 00:00:00 Completed [facility] Hep B, Adol or Pedi Dosage 2004 00:00:00 Completed [facility] Hep B, Adol or Pedi Dosage 2004 00:00:00 Completed [facility] Hep B, Adol or Pedi Dosage 2004 00:00:00 Completed [facility] Hep B, Adol or Pedi Dosage 2004 00:00:00 Completed [facility] Hep B, Adol or Pedi Dosage 2004 00:00:00 Completed [facility] Hep B, Adol or Pedi Dosage 2004 00:00:00 Completed [facility] Hep B, Adol or Pedi Dosage 2004 00:00:00 Completed [facility] Hep B, Adol or Pedi Dosage 2004 00:00:00 Completed [facility] Hep B, Adol or Pedi Dosage 2004 00:00:00 Completed [facility] Hep B, Adol or Pedi Dosage 2004 00:00:00 Completed [facility] Hep B, Adol or Pedi Dosage 2004 00:00:00 Completed [facility] Hep B, Adol or Pedi Dosage 2004 00:00:00 Completed [facility] Hep B, Adol or Pedi Dosage 2004 00:00:00 Completed [facility] Hep B, Adol or Pedi Dosage 2004 00:00:00 Completed [facility] Hep B, Adol or Pedi Dosage 2004 00:00:00 Completed [facility] Hep B, Adol or Pedi Dosage 2004 00:00:00 Completed [facility] Hep B, Adol or Pedi Dosage 2004 00:00:00 Completed [facility] Hep B, Adol or Pedi Dosage 2004 00:00:00 Completed [facility] Influenza Virus Vaccine Quad .5 mL IM 6+ MO (FLUZONE/FLULAVAL/FL UARIX) Unknown Completed [facility] DTAP Unknown Completed [facility] HIB 4 Dose Schedule Unknown Completed [facility] HEPATITIS A Unknown Completed [facility] Hep B, Adol or Pedi Dosage Unknown Completed [facility] Meningococcal Polysaccharide (groups A, C, Y and W-135) conjugate vaccine (MCV4P) Unknown Completed [facility] MMR Unknown Completed [facility] Pneumococcal 13 Conjugate, PCV13 (Prevnar 13) Unknown Completed [facility] Polio (IPV/OPV) Unknown Completed [facility] TDAP Unknown Completed [facility] Varicella (varivax)(chicken pox) Unknown Completed [facility] HPV9 Unknown Completed [facility] Pneumococcal Polysaccharide, PPSV23 (PNEUMOVAX) Unknown Completed [facility] Influenza Virus Vaccine Quad .5 mL IM 6+ MO (FLUZONE/FLULAVAL/FL UARIX) Unknown Completed [facility] DTAP Unknown Completed [facility] HIB 4 Dose Schedule Unknown Completed [facility] HEPATITIS A Unknown Completed [facility] Hep B, Adol or Pedi Dosage Unknown Completed [facility] Meningococcal Polysaccharide (groups A, C, Y and W-135) conjugate vaccine (MCV4P) Unknown Completed [facility] MMR Unknown Completed [facility] Pneumococcal 13 Conjugate, PCV13 (Prevnar 13) Unknown Completed [facility] Polio (IPV/OPV) Unknown Completed [facility] TDAP Unknown Completed [facility] Varicella (varivax)(chicken pox) Unknown Completed [facility] HPV9 Unknown Completed [facility] Pneumococcal Polysaccharide, PPSV23 (PNEUMOVAX) Unknown Completed [facility] Influenza Virus Vaccine Quad .5 mL IM 6+ MO (FLUZONE/FLULAVAL/FL UARIX) Unknown Completed [facility] DTAP Unknown Completed [facility] HIB 4 Dose Schedule Unknown Completed [facility] HEPATITIS A Unknown Completed [facility] Hep B, Adol or Pedi Dosage Unknown Completed [facility] Meningococcal Polysaccharide (groups A, C, Y and W-135) conjugate vaccine (MCV4P) Unknown Completed [facility] MMR Unknown Completed [facility] Pneumococcal 13 Conjugate, PCV13 (Prevnar 13) Unknown Completed [facility] Polio (IPV/OPV) Unknown Completed [facility] TDAP Unknown Completed [facility] Varicella (varivax)(chicken pox) Unknown Completed [facility] HPV9 Unknown Completed [facility] Pneumococcal Polysaccharide, PPSV23 (PNEUMOVAX) Unknown Completed [facility] Pneumococcal Polysaccharide, PPSV23 (PNEUMOVAX) Unknown Completed [facility] Influenza Virus Vaccine Quad .5 mL IM 6+ MO (FLUZONE/FLULAVAL/FL UARIX) Unknown Completed [facility] DTAP Unknown Completed [facility] HIB 4 Dose Schedule Unknown Completed [facility] HEPATITIS A Unknown Completed [facility] Hep B, Adol or Pedi Dosage Unknown Completed [facility] Meningococcal Polysaccharide (groups A, C, Y and W-135) conjugate vaccine (MCV4P) Unknown Completed [facility] MMR Unknown Completed [facility] Pneumococcal 13 Conjugate, PCV13 (Prevnar 13) Unknown Completed [facility] Polio (IPV/OPV) Unknown Completed [facility] TDAP Unknown Completed [facility] Varicella (varivax)(chicken pox) Unknown Completed [facility] HPV9 Unknown Completed [facility] Pneumococcal Polysaccharide, PPSV23 (PNEUMOVAX) Unknown Completed [facility] Influenza Virus Vaccine Quad .5 mL IM 6+ MO (FLUZONE/FLULAVAL/FL UARIX) Unknown Completed [facility] DTAP Unknown Completed [facility] HIB 4 Dose Schedule Unknown Completed [facility] HEPATITIS A Unknown Completed [facility] Hep B, Adol or Pedi Dosage Unknown Completed [facility] Meningococcal Polysaccharide (groups A, C, Y and W-135) conjugate vaccine (MCV4P) Unknown Completed [facility] MMR Unknown Completed [facility] Pneumococcal 13 Conjugate, PCV13 (Prevnar 13) Unknown Completed [facility] Polio (IPV/OPV) Unknown Completed [facility] TDAP Unknown Completed [facility] Varicella (varivax)(chicken pox) Unknown Completed [facility] HPV9 Unknown Completed [facility] Pneumococcal Polysaccharide, PPSV23 (PNEUMOVAX) Unknown Completed [facility] Influenza Virus Vaccine Quad .5 mL IM 6+ MO (FLUZONE/FLULAVAL/FL UARIX) Unknown Completed [facility] DTAP Unknown Completed [facility] HIB 4 Dose Schedule Unknown Completed [facility] HEPATITIS A Unknown Completed [facility] Hep B, Adol or Pedi Dosage Unknown Completed [facility] Meningococcal Polysaccharide (groups A, C, Y and W-135) conjugate vaccine (MCV4P) Unknown Completed [facility] MMR Unknown Completed [facility] Pneumococcal 13 Conjugate, PCV13 (Prevnar 13) Unknown Completed [facility] Polio (IPV/OPV) Unknown Completed [facility] TDAP Unknown Completed [facility] Varicella (varivax)(chicken pox) Unknown Completed [facility] HPV9 Unknown Completed [facility] Influenza Virus Vaccine Quad .5 mL IM 6+ MO (FLUZONE/FLULAVAL/FL UARIX) Unknown Completed [facility] DTAP Unknown Completed [facility] HIB 4 Dose Schedule Unknown Completed [facility] HEPATITIS A Unknown Completed [facility] Hep B, Adol or Pedi Dosage Unknown Completed [facility] Meningococcal Polysaccharide (groups A, C, Y and W-135) conjugate vaccine (MCV4P) Unknown Completed [facility] MMR Unknown Completed [facility] Pneumococcal 13 Conjugate, PCV13 (Prevnar 13) Unknown Completed [facility] Polio (IPV/OPV) Unknown Completed [facility] TDAP Unknown Completed [facility] Varicella (varivax)(chicken pox) Unknown Completed [facility] HPV9 Unknown Completed [facility] Pneumococcal Polysaccharide, PPSV23 (PNEUMOVAX) Unknown Completed [facility] Influenza Virus Vaccine Quad .5 mL IM 6+ MO (FLUZONE/FLULAVAL/FL UARIX) Unknown Completed [facility] DTAP Unknown Completed [facility] HIB 4 Dose Schedule Unknown Completed [facility] HEPATITIS A Unknown Completed [facility] Hep B, Adol or Pedi Dosage Unknown Completed [facility] Meningococcal Polysaccharide (groups A, C, Y and W-135) conjugate vaccine (MCV4P) Unknown Completed [facility] MMR Unknown Completed [facility] Pneumococcal 13 Conjugate, PCV13 (Prevnar 13) Unknown Completed [facility] Polio (IPV/OPV) Unknown Completed [facility] TDAP Unknown Completed [facility] Varicella (varivax)(chicken pox) Unknown Completed [facility] HPV9 Unknown Completed [facility] Pneumococcal Polysaccharide, PPSV23 (PNEUMOVAX) Unknown Completed [facility] Pneumococcal Polysaccharide, PPSV23 (PNEUMOVAX) Unknown Completed [facility] Influenza Virus Vaccine Quad .5 mL IM 6+ MO (FLUZONE/FLULAVAL/FL UARIX) Unknown Completed [facility] DTAP Unknown Completed [facility] HIB 4 Dose Schedule Unknown Completed [facility] HEPATITIS A Unknown Completed [facility] Hep B, Adol or Pedi Dosage Unknown Completed [facility] Meningococcal Polysaccharide (groups A, C, Y and W-135) conjugate vaccine (MCV4P) Unknown Completed [facility] MMR Unknown Completed [facility] Pneumococcal 13 Conjugate, PCV13 (Prevnar 13) Unknown Completed [facility] Polio (IPV/OPV) Unknown Completed [facility] TDAP Unknown Completed [facility] Varicella (varivax)(chicken pox) Unknown Completed [facility] HPV9 Unknown Completed [facility] Influenza Virus Vaccine Quad .5 mL IM 6+ MO (FLUZONE/FLULAVAL/FL UARIX) Unknown Completed [facility] DTAP Unknown Completed [facility] HIB 4 Dose Schedule Unknown Completed [facility] HEPATITIS A Unknown Completed [facility] Hep B, Adol or Pedi Dosage Unknown Completed [facility] Meningococcal Polysaccharide (groups A, C, Y and W-135) conjugate vaccine (MCV4P) Unknown Completed [facility] MMR Unknown Completed [facility] Pneumococcal 13 Conjugate, PCV13 (Prevnar 13) Unknown Completed [facility] Polio (IPV/OPV) Unknown Completed [facility] TDAP Unknown Completed [facility] Varicella (varivax)(chicken pox) Unknown Completed [facility] HPV9 Unknown Completed [facility] Pneumococcal Polysaccharide, PPSV23 (PNEUMOVAX) Unknown Completed [facility] Influenza Virus Vaccine Quad .5 mL IM 6+ MO (FLUZONE/FLULAVAL/FL UARIX) Unknown Completed [facility] DTAP Unknown Completed [facility] HIB 4 Dose Schedule Unknown Completed [facility] HEPATITIS A Unknown Completed [facility] Hep B, Adol or Pedi Dosage Unknown Completed [facility] Meningococcal Polysaccharide (groups A, C, Y and W-135) conjugate vaccine (MCV4P) Unknown Completed [facility] MMR Unknown Completed [facility] Pneumococcal 13 Conjugate, PCV13 (Prevnar 13) Unknown Completed [facility] Polio (IPV/OPV) Unknown Completed [facility] TDAP Unknown Completed [facility] Varicella (varivax)(chicken pox) Unknown Completed [facility] HPV9 Unknown Completed [facility] Pneumococcal Polysaccharide, PPSV23 (PNEUMOVAX) Unknown Completed [facility] Influenza Virus Vaccine Quad .5 mL IM 6+ MO (FLUZONE/FLULAVAL/FL UARIX) Unknown Completed [facility] DTAP Unknown Completed [facility] HIB 4 Dose Schedule Unknown Completed [facility] HEPATITIS A Unknown Completed [facility] Hep B, Adol or Pedi Dosage Unknown Completed [facility] Meningococcal Polysaccharide (groups A, C, Y and W-135) conjugate vaccine (MCV4P) Unknown Completed [facility] MMR Unknown Completed [facility] Pneumococcal 13 Conjugate, PCV13 (Prevnar 13) Unknown Completed [facility] Polio (IPV/OPV) Unknown Completed [facility] TDAP Unknown Completed [facility] Varicella (varivax)(chicken pox) Unknown Completed [facility] HPV9 Unknown Completed [facility] Pneumococcal Polysaccharide, PPSV23 (PNEUMOVAX) Unknown Completed [facility] Influenza Virus Vaccine Quad .5 mL IM 6+ MO (FLUZONE/FLULAVAL/FL UARIX) Unknown Completed [facility] DTAP Unknown Completed [facility] HIB 4 Dose Schedule Unknown Completed [facility] HEPATITIS A Unknown Completed [facility] Hep B, Adol or Pedi Dosage Unknown Completed [facility] Meningococcal Polysaccharide (groups A, C, Y and W-135) conjugate vaccine (MCV4P) Unknown Completed [facility] MMR Unknown Completed [facility] Pneumococcal 13 Conjugate, PCV13 (Prevnar 13) Unknown Completed [facility] Polio (IPV/OPV) Unknown Completed [facility] TDAP Unknown Completed [facility] Varicella (varivax)(chicken pox) Unknown Completed [facility] HPV9 Unknown Completed [facility] Pneumococcal Polysaccharide, PPSV23 (PNEUMOVAX) Unknown Completed [facility] Influenza Virus Vaccine Quad .5 mL IM 6+ MO (FLUZONE/FLULAVAL/FL UARIX) Unknown Completed [facility] DTAP Unknown Completed [facility] HIB 4 Dose Schedule Unknown Completed [facility] HEPATITIS A Unknown Completed [facility] Hep B, Adol or Pedi Dosage Unknown Completed [facility] Meningococcal Polysaccharide (groups A, C, Y and W-135) conjugate vaccine (MCV4P) Unknown Completed [facility] MMR Unknown Completed [facility] Pneumococcal 13 Conjugate, PCV13 (Prevnar 13) Unknown Completed [facility] Polio (IPV/OPV) Unknown Completed [facility] TDAP Unknown Completed [facility] Varicella (varivax)(chicken pox) Unknown Completed [facility] HPV9 Unknown Completed [facility] Pneumococcal Polysaccharide, PPSV23 (PNEUMOVAX) Unknown Completed [facility] Vital Signs Vital Name Observation Time Observation Value Comments S our Systolic blood pressure 2024-08-30 21:15:00 97 mm[Hg] [facility] Diastolic blood pressure 2024-08-30 21:15:00 57 mm[Hg] [facility] Heart rate 2024-08-30 21:15:00 69 /min [facility] Body temperature 2024-08-30 21:15:00 36.06 [facility] Respiratory rate 2024-08-30 21:15:00 18 /min [facility] Oxygen saturation in Arterial blood by Pulse oximetry 2024-08-30 21:15:00 98 /min [facility] Body weight 2024-08-27 10:00:00 43.999 kg [facility] BMI 2024-08-27 10:00:00 17.18 kg/m2 [facility] Body height 2024-08-24 16:58:00 160 cm [facility] Systolic blood pressure 2024 21:34:43 92 mm[Hg] [facility] Diastolic blood pressure 2024 21:34:43 61 mm[Hg] [facility] Heart rate 2024 21:34:43 91 /min [facility] Body temperature 2024 21:34:43 37.11 Mery [facility] Respiratory rate 2024 21:34:43 16 /min [facility] Oxygen saturation in Arterial blood by Pulse oximetry 2024 21:34:43 97 /min [facility] Body height 2024 18:42:00 [facility] 2024 18:42:00 41.731 kg [facility] BMI 2024 18:42:00 16.30 kg/m2 [facility] Systolic blood pressure 2024-08-11 14:29:00 96 mm[Hg] [facility] Diastolic blood pressure 2024-08-11 14:29:00 56 mm[Hg] [facility] Heart rate 2024-08-11 14:29:00 69 /min [facility] Body temperature 2024-08-11 14:29:00 37 Mery [facility] Respiratory rate 2024-08-11 14:29:00 17 /min [facility] Body height 2024-08-11 14:29:00 160 cm [facility] Body weight 2024-08-11 14:29:00 44.18 kg [facility] BMI 2024-08-11 14:29:00 17.25 kg/m2 [facility] Oxygen saturation in Arterial blood by Pulse oximetry 2024-08-11 14:29:00 100 /min [facility] Systolic blood pressure 2024-05-10 12:51:00 111 mm[Hg] [facility] Diastolic blood pressure 2024-05-10 12:51:00 72 mm[Hg] [facility] Heart rate 2024-05-10 12:51:00 108 /min [facility] Body temperature 2024-05-10 12:51:00 36.89 Mery [facility] Respiratory rate 2024-05-10 12:51:00 16 /min [facility] Body height 2024-05-10 12:51:00 160 cm [facility] Body weight 2024-05-10 12:51:00 44.169 kg [facility] BMI 2024-05-10 12:51:00 17.25 kg/m2 [facility] Systolic blood pressure 2024-02-26 13:56:00 106 mm[Hg] [facility] Diastolic blood pressure 2024-02-26 13:56:00 70 mm[Hg] [facility] Heart rate 2024-02-26 13:56:00 87 /min [facility] Respiratory rate 2024-02-26 13:56:00 18 /min [facility] Body height 2024-02-26 13:56:00 158.8 cm [facility] Body weight 2024-02-26 13:56:00 42.638 kg [facility] BMI 2024-02-26 13:56:00 16.92 kg/m2 [facility] Systolic blood pressure 2024-02-15 16:03:00 102 mm[Hg] [facility] Diastolic blood pressure 2024-02-15 16:03:00 70 mm[Hg] [facility] Heart rate 2024-02-15 16:03:00 101 /min [facility] Body temperature 2024-02-15 16:03:00 36.5 Mery [facility] Respiratory rate 2024-02-15 16:03:00 16 /min [facility] Body height 2024-02-15 16:03:00 158.8 cm [facility] Body weight 2024-02-15 16:03:00 42.048 kg [facility] BMI 2024-02-15 16:03:00 16.68 kg/m2 [facility] Oxygen saturation in Arterial blood by Pulse oximetry 2024-02-15 16:03:00 98 /min [facility] Systolic blood pressure 2023-10-21 21:11:00 102 mm[Hg] [facility] Diastolic blood pressure 2023-10-21 21:11:00 70 mm[Hg] [facility] Heart rate 2023-10-21 21:11:00 111 /min [facility] Body temperature 2023-10-21 21:11:00 36.67 Mery [facility] Respiratory rate 2023-10-21 21:11:00 14 /min [facility] Body weight 2023-10-21 21:11:00 40.415 kg [facility] Oxygen saturation in Arterial blood by Pulse oximetry 2023-10-21 21:11:00 100 /min [facility] Systolic blood pressure 2023-08-05 14:04:00 125 mm[Hg] [facility] Diastolic blood pressure 2023-08-05 14:04:00 75 mm[Hg] [facility] Heart rate 2023-08-05 14:04:00 106 /min [facility] Respiratory rate 2023-08-05 14:04:00 16 /min [facility] Body weight 2023-08-05 14:04:00 40.484 kg [facility] Systolic blood pressure 2023-07-22 20:25:00 99 mm[Hg] [facility] Diastolic blood pressure 2023-07-22 20:25:00 61 mm[Hg] [facility] Heart rate 2023-07-22 20:25:00 72 /min [facility] Respiratory rate 2023-07-22 20:25:00 16 /min [facility] Body weight 2023-07-22 20:25:00 39.52 kg [facility] Oxygen saturation in Arterial blood by Pulse oximetry 2023-07-22 20:25:00 99 /min [facility] Systolic blood pressure 2023-06-08 14:13:00 102 mm[Hg] [facility] Diastolic blood pressure 2023-06-08 14:13:00 64 mm[Hg] [facility] Heart rate 2023-06-08 14:13:00 99 /min [facility] Body temperature 2023-06-08 14:13:00 36.5 Mery [facility] Respiratory rate 2023-06-08 14:13:00 16 /min [facility] Body height 2023-06-08 14:13:00 158.1 cm [facility] Body weight 2023-06-08 14:13:00 38.964 kg [facility] BMI 2023-06-08 14:13:00 15.59 kg/m2 [facility] Body mass index (BMI) [Percentile] Per age and sex 2023-06-08 14:13:00 0.06 % General acute hospital Oxygen saturation in Arterial blood by Pulse oximetry 2023-06-08 14:13:00 98 /min General acute hospital Systolic blood pressure 2023-06-01 18:31:00 102 mm[Hg] General acute hospital Diastolic blood pressure 2023-06-01 18:31:00 67 mm[Hg] General acute hospital Heart rate 2023-06-01 18:31:00 91 /min [facility] Body temperature 2023-06-01 18:31:00 36.67 Mery [facility] Respiratory rate 2023-06-01 18:31:00 16 /min [facility] Body weight 2023-06-01 18:31:00 39.094 kg [facility] Systolic blood pressure 2023-03-30 17:46:00 113 mm[Hg] General acute hospital Diastolic blood pressure 2023-03-30 17:46:00 77 mm[Hg] General acute hospital Heart rate 2023-03-30 17:46:00 94 /min [facility] Body temperature 2023-03-30 17:46:00 36.61 Mery [facility] Respiratory rate 2023-03-30 17:46:00 15 /min [facility] Body weight 2023-03-30 17:46:00 39.735 kg [facility] Systolic blood pressure 2023-02-27 17:55:00 98 mm[Hg] General acute hospital Diastolic blood pressure 2023-02-27 17:55:00 56 mm[Hg] General acute hospital Heart rate 2023-02-27 17:55:00 66 /min [facility] Body temperature 2023-02-27 17:55:00 36.72 Mery [facility] Respiratory rate 2023-02-27 17:55:00 18 /min [facility] Body weight 2023-02-27 17:55:00 39.418 kg [facility] Oxygen saturation in Arterial blood by Pulse oximetry 2023-02-27 17:55:00 98 /min General acute hospital Systolic blood pressure 2023-01-28 19:56:00 113 mm[Hg] General acute hospital Diastolic blood pressure 2023-01-28 19:56:00 68 mm[Hg] General acute hospital Heart rate 2023-01-28 19:56:00 112 /min [facility] Body height 2023-01-28 19:56:00 160.7 cm [facility] Body weight 2023-01-28 19:56:00 39.055 kg [facility] BMI 2023-01-28 19:56:00 15.13 kg/m2 [facility] Body mass index (BMI) [Percentile] Per age and sex 2023-01-28 19:56:00 0.02 % General acute hospital Oxygen saturation in Arterial blood by Pulse oximetry 2023-01-28 19:56:00 99 /min General acute hospital Systolic blood pressure 2023-01-21 18:22:00 102 mm[Hg] General acute hospital Diastolic blood pressure 2023-01-21 18:22:00 69 mm[Hg] General acute hospital Heart rate 2023-01-21 18:22:00 97 /min [facility] Body temperature 2023-01-21 18:22:00 36.94 Mery [facility] Respiratory rate 2023-01-21 18:22:00 15 /min [facility] Body weight 2023-01-21 18:22:00 39.644 kg [facility] Oxygen saturation in Arterial blood by Pulse oximetry 2023-01-21 18:22:00 98 /min General acute hospital Systolic blood pressure 2023-01-02 13:48:00 108 mm[Hg] General acute hospital Diastolic blood pressure 2023-01-02 13:48:00 69 mm[Hg] General acute hospital Heart rate 2023-01-02 13:48:00 113 /min [facility] Body temperature 2023-01-02 13:48:00 37.22 Mery [facility] Respiratory rate 2023-01-02 13:48:00 15 /min [facility] Body weight 2023-01-02 13:48:00 39.554 kg [facility] Systolic blood pressure 2022-12-18 18:46:00 101 mm[Hg] General acute hospital Diastolic blood pressure 2022-12-18 18:46:00 70 mm[Hg] General acute hospital Heart rate 2022-12-18 18:46:00 98 /min [facility] Body temperature 2022-12-18 18:46:00 37 Mery [facility] Respiratory rate 2022-12-18 18:46:00 15 /min [facility] Body weight 2022-12-18 18:46:00 38.374 kg [facility] Oxygen saturation in Arterial blood by Pulse oximetry 2022-12-18 18:46:00 100 /min General acute hospital Systolic blood pressure 2022-12-02 18:55:00 108 mm[Hg] General acute hospital Diastolic blood pressure 2022-12-02 18:55:00 73 mm[Hg] General acute hospital Heart rate 2022-12-02 18:55:00 110 /min [facility] Body temperature 2022-12-02 18:55:00 36.94 Mery [facility] Respiratory rate 2022-12-02 18:55:00 19 /min [facility] Body weight 2022-12-02 18:55:00 38.828 kg [facility] Systolic blood pressure 2022-09-10 20:37:00 105 mm[Hg] General acute hospital Diastolic blood pressure 2022-09-10 20:37:00 73 mm[Hg] General acute hospital Heart rate 2022-09-10 20:37:00 119 /min [facility] Body temperature 2022-09-10 20:37:00 37.17 Mery [facility] Respiratory rate 2022-09-10 20:37:00 18 /min [facility] Body weight 2022-09-10 20:37:00 37.875 kg [facility] Oxygen saturation in Arterial blood by Pulse oximetry 2022-09-10 20:37:00 98 /min General acute hospital Systolic blood pressure 2022-06-16 15:22:00 103 mm[Hg] General acute hospital Diastolic blood pressure 2022-06-16 15:22:00 69 mm[Hg] General acute hospital Heart rate 2022-06-16 15:22:00 95 /min [facility] Body temperature 2022-06-16 15:22:00 36.44 Mery [facility] Respiratory rate 2022-06-16 15:22:00 18 /min [facility] Body weight 2022-06-16 15:22:00 39.508 kg [facility] Oxygen saturation in Arterial blood by Pulse oximetry 2022-06-16 15:22:00 99 /min General acute hospital Systolic blood pressure 2022-05-23 15:59:00 97 mm[Hg] General acute hospital Diastolic blood pressure 2022-05-23 15:59:00 68 mm[Hg] General acute hospital Heart rate 2022-05-23 15:59:00 96 /min [facility] Body temperature 2022-05-23 15:59:00 36.78 Mery [facility] Respiratory rate 2022-05-23 15:59:00 18 /min [facility] Body weight 2022-05-23 15:59:00 40.552 kg [facility] Oxygen saturation in Arterial blood by Pulse oximetry 2022-05-23 15:59:00 99 /min General acute hospital Systolic blood pressure 2022-05-21 18:28:00 102 mm[Hg] General acute hospital Diastolic blood pressure 2022-05-21 18:28:00 69 mm[Hg] General acute hospital Heart rate 2022-05-21 18:28:00 103 /min [facility] Body temperature 2022-05-21 18:28:00 36.72 Mery [facility] Respiratory rate 2022-05-21 18:28:00 16 /min [facility] Body weight 2022-05-21 18:28:00 41.051 kg [facility] Systolic blood pressure 2022-03-21 08:00:00 93 mm[Hg] General acute hospital Diastolic blood pressure 2022-03-21 08:00:00 61 mm[Hg] General acute hospital Heart rate 2022-03-21 08:00:00 57 /min [facility] Respiratory rate 2022-03-21 08:00:00 16 /min [facility] Oxygen saturation in Arterial blood by Pulse oximetry 2022-03-21 08:00:00 99 /min General acute hospital Body temperature 2022-03-21 04:47:00 36.67 Mery [facility] Body height 2022-03-21 04:47:00 160 cm [facility] Body weight 2022-03-21 04:47:00 40.597 kg [facility] BMI 2022-03-21 04:47:00 15.85 kg/m2 [facility] Body mass index (BMI) [Percentile] Per age and sex 2022-03-21 04:47:00 0.31 % General acute hospital Systolic blood pressure 2022-02-24 15:11:00 99 mm[Hg] General acute hospital Diastolic blood pressure 2022-02-24 15:11:00 67 mm[Hg] General acute hospital Heart rate 2022-02-24 15:11:00 92 /min [facility] Body temperature 2022-02-24 15:11:00 36.33 Mery [facility] Respiratory rate 2022-02-24 15:11:00 12 /min [facility] Body height 2022-02-24 15:11:00 158.3 cm [facility] Body weight 2022-02-24 15:11:00 42.366 kg [facility] BMI 2022-02-24 15:11:00 16.91 kg/m2 [facility] Body mass index (BMI) [Percentile] Per age and sex 2022-02-24 15:11:00 2.60 % General acute hospital Systolic blood pressure 2022-02-24 15:11:00 99 mm[Hg] General acute hospital Diastolic blood pressure 2022-02-24 15:11:00 67 mm[Hg] General acute hospital Heart rate 2022-02-24 15:11:00 92 /min [facility] Body temperature 2022-02-24 15:11:00 36.33 Mery [facility] Respiratory rate 2022-02-24 15:11:00 12 /min [facility] Body height 2022-02-24 15:11:00 158.3 cm [facility] Body weight 2022-02-24 15:11:00 42.366 kg [facility] BMI 2022-02-24 15:11:00 16.91 kg/m2 [facility] Body mass index (BMI) [Percentile] Per age and sex 2022-02-24 15:11:00 2.60 % General acute hospital Procedures Procedure Date / Time Performed Performing Clinician Source MAGNESIUM 2024-08-30 11:08:00 Jose Shah [facility] COMP. METABOLIC PANEL (12861) 2024-08-30 11:08:00 Mainde [facility] CBC WITH DIFF 2024-08-30 11:08:00 [facility] HEPATITIS C VIRUS (HCV) BY QUANTITATIVE NAAT 2024-08-29 12:25:00 [facility] BY [facility]ANTITATIVE NAAT 2024-08-29 12:25:00 Vadim [facility] EBV VIRUS BY QUANTITATIVE NAAT, PLASMA 2024-08-29 12:25:00 Vadim [facility] CBC WITH DIFF 2024-08-29 12:24:00 Quinton Fierro [facility] MAGNESIUM 2024-08-29 12:23:00 Quinton Fierro [facility] COMP. METABOLIC PANEL ([id number]) 2024-08-29 12:23:00 [facility] 2024-08-28 18:30:00 [place] 2024-08-28 08:46[facility] COMP. METABOLIC PANEL ([id number]) 2024-08-28 08:46:00 Vadim [facility] CBC WITH DIFF 2024-08-28 08:46:00 Vadim [facility] HEPATITIS B SURFACE ANTIBODY 2024-08-27 20:53:00 Vadim [facility] HCV ANTIBODY 2024-08-27 20:53:00 [facility] HBC ANTIBODY (IGM & IGG) 2024-08-27 20:52:00 Vadim [facility] MAGNESIUM 2024-08-27 12:17:00 [facility] COMP. METABOLIC PANEL ([id number]) 2024-08-27 12:17:00 Vadim [facility] CBC WITH DIFF 2024-08-27 12:17:00 Vadim [facility] HEPATITIS B SURFACE ANTIGEN 2024-08-27 12:17:00 Vadim [facility] HIV 1/2 AG-AB WITH REFLEX 2024-08-27 12:17:00 Vadim [facility] XR CHEST 2 VW 2024-08-26 22:30:29 Vadim [facility] CEREBROSPINAL FLUID PROTEIN 2024-08-26 17:50:00 Vadim [facility] CEREBROSPINAL FLUID GLUCOSE 2024-08-26 17:50:00 Vadim [facility] BODY FLUID DIRECT COUNT 2024-08-26 17:50:00 Vadim [facility] CSF/BREAKER OPERATOR SHUNT CULTURE 2024-08-26 17:50:00 Vadim [facility] [place] VIRUS AB PANEL 2024-08-26 17:50:00 Vadim [facility] EXTRA TUBE CSF 2024-08-26 17:50:00 Xiomy, Neo [facility] CSF CULTURE 2024-08-26 17:50:00 Fer [facility] MENINGITIS/ENCEPHALITIS PANEL BY PCR 2024-08-26 17:50:00 Vadim [facility] MAGNESIUM 2024-08-26 09:29:00 Vadim [facility] BASIC METABOLIC PANEL (NA, K, CL, CO2, GLUCOSE, BUN, CREATININE, CA) 2024-08-26 09:29:00 Vadim [facility] CBC WITH DIFF 2024-08-26 09:29:00 Quinton Fierro [facility] CT HEAD WO CONTRAST 2024-08-25 18:47:30 Natasha Fierro [facility] MAGNESIUM 2024-08-25 14:23:00 Vadim [facility] BASIC METABOLIC PANEL (NA, K, CL, CO2, GLUCOSE, BUN, CREATININE, CA) 2024-08-25 14:23:00 Vadim [facility] CORTISOL AM 2024-08-25 14:21:00 Vadim [facility] CBC WITH DIFF 2024-08-25 14:21:00 Quinton Fierro [facility] CT ABDOMEN PELVIS W CONTRAST 2024-08-24 19:58:55 Vadim [facility] BLOOD CULTURE SCREEN 2024-08-24 18:22:00 Pablo [facility] CREATININE 2024-08-24 18:06:00 Neo Del [place] [facility] TRIGLYCERIDES 2024-08-24 18:06:00 Quinton Fierro [facility] MAGNESIUM 2024-08-24 18:06:00 Jose Shah [facility] FERRITIN SERUM 2024-08-24 18:06:00 [facility] VIT[facility] B12, LEVEL 2024-08-24 18:06:00 Evan Fierro [facility] FOLATE 2024-08-24 18:06:00 [facility] IMMUNOGLOBULIN M 2024-08-24 18:06:00 Fer [facility] FREE T4 2024-08-24 18:06:00 [facility] THYROID STIMULATING HORMONE 2024-08-24 18:06:00 [facility] COMP. METABOLIC PANEL ([id number]) 2024-08-24 18:06:00 Pablo [facility] IRON PANEL 2024-08-24 [facility] 2024-08-24 18:06[facility]00 [facility] 2024-08-24 [facility] ANTI-NUCLEAR ANTIBODY SCREEN 2024-08-24 18:06:00 Fer [facility] TYPHUS FEVER AB, IGM 2024-08-24 18:06:00 Fer [facility] ANTI-NUCLEAR ANTIBODY-PATHOLOGIST INTERPRETATION 2024-08-24 18:06:00 [facility]IN[facility] 2024-08-24 18:04:00 [facility] BLOOD CULTURE SCREEN 2024-08-24 [facility] 19:18:00 [facility] 2024 19:18:00 Nati Roche ra [facility] INFLUENZA A/B RSV COVID NAAT 2024 19:18:00 Jennifer Roche [facility] ASSIGNMENT OF BENEFITS 2023-07-22 20:16:42 Docto r Unassigned, [place] [facility] MEDICATION CORRESPONDENCE 2023-05-18 05:01:00 Do ctor Unassigned, [place] [facility] POCT URINALYSIS 2023-02-27 00:00:00 Ivonne Nayak [facility] HB ECG ROUTINE & RHYTHM STRIP 2022-12-18 19:20:10 Ivy Tavares [facility] VACCINATION OF A MINOR 2022-12-18 18:41:26 Docjessica r Unassigned, [place] [facility] PATIENT FINANCIAL POLICY 2022-12-02 18:50:43 Doctor Unassigned, [place] [facility] POCT MOLECULAR FLU 2022-09-10 20:39:00 Srini Sesay [facility] CONSENT/REFUSAL FOR DIAGNOSIS AND TREATMENT 2022-06-16 15:13:11 Doctor Unassigned, [place] [facility] ASSIGNMENT OF BENEFITS 2022-06-16 15:12:55 Kayode r Unassigned, [place] [facility] POCT GRP A STREP (MOLECULAR) 2022-05-23 00:00:00 Ivy Tavares [facility] COMP. METABOLIC PANEL ([id number]) 2022-03-21 06:40:00 Ricardo Severino [facility] CBC WITH DIFF 2022-03-21 06:40:00 Ricardo Severino [facility] POCT TEST 2022-03-21 04:59:00 Ricardo Severino [facility] URINALYSIS 2022-03-21 04:56:00 Ricardo Severino [facility] NOTICE OF PRIVACY PRACTICES 2022-03-21 04:39:52 Doctor Unassigned, [place] [facility] CONSENT/REFUSAL FOR DIAGNOSIS AND TREATMENT 2022-03-21 04:38:45 Doctor Unassigned, [place] [facility] IMMUNOGLOBULIN E, SERUM 2022-02-24 16:40:00 Kole Lugo Hanna [facility] IMMUNOGLOBULIN G A M PANEL 2022-02-24 16:40:00 Asael Lugo Hanna [facility] Encounters Start Date/Time End Date/Time Encounter Type Admission Type Attending [facility] Care Facility Care Department Encounter ID Source 2021-07-01 17:55:48 Emergency [facility] [id number] [facility] 2021-06-28 16:10:45 Emergency [facility] [id number] [facility] 2021-06-28 11:07:15 Emergency [facility] [id number] [facility] 2021-06-27 18:46:17 Emergency [facility] [id number] [facility] 2024-09-21 14:10:00 2024-09-21 14:10:00 Outpatient R IVONNE NAYAK [facility] [id number] [facility] 2024-09-02 00:00:00 2024-09-02 15:38:07 Letter (Out) Diseases-Sc mb, Infectious Diseases-Sc mb, Infectious [facility] 1.2.840.114 350.1.13.10 4.2.7.2.686 [id number] [facility] 2024-08-24 10:20:00 2024-08-30 18:06:00 Inpatient U LEI GUTIERREZ [facility] [id number] [facility] 2024-08-24 10:20:00 2024-08-30 18:06:00 Hospital Encounter Rebeca Swan, Lei Ann [facility] ([place] 1.2.840.114 350.1.13.10 4.2.7.2.686 [id number] [facility] 2024-08-23 00:00:00 2024-08-23 12:28:12 Nurse Triage Melonie Scott Cindy [facility] 1.2.840.114 350.1.13.10 4.2.7.2.686 [id number] [facility] 2024 12:44:00 2024 15:38:00 Emergency X JENNIFER ROCHE [facility] ERT [id number] [facility] 2024 12:44:00 2024 15:38:00 Emergency Jennifer Roche [facility] 1.2.840.114 350.1.13.10 4.2.7.2.686 [id number] [facility] 2024 00:00:00 2024 11:00:04 Nurse Triage Josselyn Duran Wendy [facility] 1.2.840.114 350.1.13.10 4.2.7.2.686 [id number] [facility] 2024-08-11 00:00:00 2024-08-11 08:38:47 Letter (Out) Lázaro, [facility] 1.2.840.114 350.1.13.10 4.2.7.2.686 [id number] [facility] 2024-08-11 08:20:00 2024-08-11 08:38:20 Office Visit Lázaro Sushma [facility] 1.2.840.114 350.1.13.10 4.2.7.2.686 [id number] [facility] 2024-08-11 08:20:00 2024-08-11 08:38:20 Outpatient SUSHMA CAROLINA [facility] [id number] [facility] 2024-08-09 09:50:00 2024-08-09 09:50:00 Outpatient IVONNE TUTTLE [facility] [id number] [facility] 2024-06-06 13:00:00 2024-06-06 13:00:00 Outpatient ASHLEY GAGNON [facility] [id number] [facility] 2024-06-03 09:00:00 2024-06-03 09:00:00 Outpatient GREG BUNCH VIEN [facility] [id number] [facility] 2024-05-10 08:10:00 2024-05-10 08:51:35 Outpatient R IVONNE NAYAK [facility] [id number] [facility] 2024-05-10 08:10:00 2024-05-10 08:51:35 Office Visit Ivonne Nayak [facility] 1.2.840.114 350.1.13.10 4.2.7.2.686 [id number] [facility] 2024-05-09 00:00:00 2024-05-09 16:30:03 Telephone Ivonne Nayak [facility] 1.2.840.114 350.1.13.10 4.2.7.2.686 [id number] 225 [id number] [facility] 2024-05-09 00:00:00 2024-05-09 08:54:04 Telephone Ivonne Nayak [facility] 1.2.840.114 350.1.13.10 4.2.7.2.686 [id number] [facility] 2024-03-25 16:00:00 2024-03-25 16:00:00 Outpatient IVY TOMLINSON [facility] [id number] [facility] 2024-02-26 09:00:00 2024-02-26 09:35:27 Outpatient R GREG PATEL VIEN [facility] [id number] [facility] 2024-02-26 09:00:00 2024-02-26 09:35:27 Office Visit Greg Patel [facility] 1.2.840.114 350.1.13.10 4.2.7.2.686 [id number] [facility] 2024-02-15 11:00:00 2024-02-15 11:21:28 Outpatient CASIE PEDRAZA LESLEY [facility] [id number] [facility] 2024-02-15 11:00:00 2024-02-15 11:21:28 Office Visit Casie Oneil [facility] 1.2.840.114 350.1.13.10 4.2.7.2.686 [id number] [facility] 2024-02-15 00:00:00 2024-02-15 00:00:00 Patient Outreach Manzo Simona [facility] 1.2.840.114 350.1.13.10 4.2.7.2.686 [id number] 225 [id number] [facility] 2024-01-30 00:00:00 2024-02-01 09:39:57 Telephone Ivonne Nayak [facility] 1.2.840.114 350.1.13.10 4.2.7.2.686 [id number] [facility] 2024-02-01 09:10:00 2024-02-01 09:10:00 Outpatient IVONNE TUTTLE [facility] [id number] [facility] 2024-01-27 09:10:00 2024-01-27 09:10:00 Outpatient IVONNE TUTTLE [facility] [id number] [facility] 2024-01-26 00:00:00 2024-01-26 14:22:43 Telephone Ivonne Nayak [facility] 1.2.840.114 350.1.13.10 4.2.7.2.686 [id number] [facility] 2023-11-04 07:30:00 2023-11-04 07:30:00 Outpatient IVONNE TUTTLE [facility] [id number] [facility] 2023-10-21 15:10:00 2023-10-21 15:35:17 Outpatient IVONNE TUTTLE [facility] [id number] [facility] 2023-10-21 15:10:00 2023-10-21 15:35:17 Office Visit Ivonne Nayak [facility] 1.2.840.114 350.1.13.10 4.2.7.2.686 [id number] [facility] 2023-08-05 08:10:00 2023-08-05 08:40:57 Outpatient R IVONNE NAYAK [facility] [id number] [facility] 2023-08-05 08:10:00 2023-08-05 08:40:57 Office Visit Ivonne Nayak [facility] 1.2.840.114 350.1.13.10 4.2.7.2.686 [id number] [facility] 2023-07-22 14:10:00 2023-07-22 15:06:30 Outpatient R IVONNE NAYAK [facility] [id number] [facility] 2023-07-22 14:10:00 2023-07-22 15:06:30 Office Visit Ivonne Nayak [facility] 1.2.840.114 350.1.13.10 4.2.7.2.686 [id number] [facility] 2023-07-22 00:00:00 2023-07-22 00:00:00 Orders Only Doctor Unassigned, [place] [facility] 1.2.840.114 350.1.13.10 4.2.7.2.686 [id number] [facility] 2023-06-08 09:00:00 2023-06-08 09:20:00 Office Visit Casie Oneil [facility] 1.2.840.114 350.1.13.10 4.2.7.2.686 [id number] [facility] 2023-06-08 09:00:00 2023-06-08 09:00:00 Outpatient CASIE PEDRAZA LESLEY [facility] [id number] [facility] 2023-06-01 13:30:00 2023-06-01 14:13:57 Outpatient IVONNE TUTTLE [facility] [id number] [facility] 2023-06-01 13:30:00 2023-06-01 14:13:57 Office Visit Ivonne Nayak [facility] 1.840.114 350.1.13.10 4.2.7.2.686 [id number] [facility] 2023-05-18 00:00:00 2023-05-18 00:00:00 Orders Only Doctor Unassigned, [place] [facility] 1..840.114 350.1.13.10 4.2.7.2.686 [id number] [facility] 2023-04-16 15:00:00 2023-04-16 15:00:00 Outpatient CASIE PEDRAZA LESLEY [facility] [id number] [facility] 2023-03-30 12:50:00 2023-03-30 13:24:25 Outpatient R IVONNE NAYAK [facility] [id number] [facility] 2023-03-30 12:50:00 2023-03-30 13:24:25 Office Visit Ivonne Nayak [facility] [id number] 350.1.13.10 4.2.7.2.686 [id number] [facility] 2023-02-27 12:50:00 2023-02-27 13:19:56 Outpatient IVONNE TUTTLE [facility] [id number] [facility] 2023-02-27 12:50:00 2023-02-27 13:19:56 Office Visit Ivonne Nayak [facility] [id number] 350.1.13.10 4.2.7.2.686 [id number] [facility] 2023-01-28 14:50:00 2023-01-28 15:35:03 Outpatient IVONNE TUTTLE [facility] [id number] [facility] 2023-01-28 14:50:00 2023-01-28 15:35:03 Office Visit Ivonne Nayak [facility] [id number] 350.1.13.10 4.2.7.2.686 [id number] 225 [id number] [facility] 2023-01-27 08:10:00 2023-01-27 08:10:00 Outpatient IVONNE TUTTLE [facility] [id number] [facility] 2023-01-21 13:30:00 2023-01-21 14:23:13 Outpatient IVONNE TUTTLE [facility] [id number] [facility] 2023-01-21 13:30:00 2023-01-21 14:23:13 Office Visit Ivonne Nayak [facility] 1.2840.114 350.1.13.10 4.2.7.2.686 [id number] 225 [id number] [facility] 2023-01-21 09:10:00 2023-01-21 09:10:00 Outpatient IVONNE TUTTLE [facility] [id number] [facility] 2023-01-16 00:00:00 2023-01-16 00:00:00 Ivy Raines [facility] 1.2840.114 350.1.13.10 4.2.7.2.686 [id number] 225 [id number] [facility] 2023-01-02 08:50:00 2023-01-02 09:45:53 Outpatient R IVONNE NAYAK [facility] [id number] [facility] 2023-01-02 08:50:00 2023-01-02 09:45:53 Office Visit Ivonne Nayak [facility] 1.840.114 350.1.13.10 4.2.7.2.686 [id number] 225 [id number] [facility] 2023-01-02 00:00:00 2023-01-02 00:00:00 Letter (Out) Ivonne Nayak [facility] 1.20.114 350.1.13.10 4.2.7.2.686 [id number] 225 [id number] [facility] 2022-12-22 06:47:00 2022-12-22 23:59:00 [facility] 1..114 350.1.13.10 4.2.7.2.686 [id number] [facility] 2022-12-22 00:00:00 2022-12-22 23:59:00 Outpatient KADI VIZCARRA [facility] [id number] [facility] 2022-12-19 00:00:00 2022-12-19 00:00:00 Patient Outreach Janny Prater [facility] 1..114 350.1.13.10 4.2.7.2.686 [id number] 225 [id number] [facility] 2022-12-18 13:40:00 2022-12-18 14:51:11 [id number] 2022-12-18 13:40:00 2022-12-18 14:51:11 Office Visit Bo zaidi [facility] 1..114 350.1.13.10 4.2.7.2.686 [id number] 225 [id number] [facility] 2022-12-18 00:00:00 2022-12-18 00:00:00 Orders Only Doctor Unassigned, [place] [facility] 1.2.840.114 350.1.13.10 4.2.7.2.686 [id number] [id number] [facility] 2022-12-02 14:00:00 2022-12-02 14:08:05 [facility]patient [facility] [id number] [facility] 2022-12-02 14:00:00 2022-12-02 14:08:[address] [facility] 1.2.840.114 350.1.13.10 4.2.7.2.686 [id number] 225 [id number] [facility] 2022-12-02 00:00:00 2022-12-02 00:00:00 Orders Only Doctor Unassigned, [place] [facility] 1.2.840.114 350.1.13.10 4.2.7.2.686 [id number] [id number] [facility] 2022-09-10 14:40:00 2022-09-10 15:00:[address] [facility] 1.2.840.114 350.1.13.10 4.2.7.2.686 [id number] 225 [id number] [facility] 2022-09-10 14:40:00 2022-09-10 14:40:00 Outpatient [facility] [id number] [facility] 2022-09-10 00:00:00 2022-09-10 00:00:00 Letter (Out) [facility] 1.2.840.114 350.1.13.10 4.2.7.2.686 [id number] 225 [id number] [facility] 2022-06-16 10:20:00 2022-06-16 11:25:46 Outpatient R IVY OCHOA [facility] [id number] [facility] 2022-06-16 10:20:00 2022-06-16 11:25:46 [facility] 1.2.840.114 350.1.13.10 4.2.7.2.686 [id number] 225 [id number] [facility] 2022-06-16 00:00:00 2022-06-16 00:00:00 Orders Only Doctor Unassigned, [place] [facility] 1.2.840.114 350.1.13.10 4.2.7.2.686 [id number] [id number] [facility] 2022-06-16 00:00:00 2022-06-16 00:00:00 [facility] 1.2.840.114 350.1.13.10 4.2.7.2.686 [id number] 225 [id number] [facility] 2022-06-16 00:00:00 2022-06-16 00:00:00 Letter (Out) [facility] 1.2.840.114 350.1.13.10 4.2.7.2.686 [id number] 225 [id number] [facility] 2022-06-16 00:00:00 2022-06-16 00:00:00 Telephone Alejo Lloyd [facility] 1.2.840.114 350.1.13.10 4.2.7.2.686 [id number] 147 [id number] [facility] 2022-06-03 00:00:00 2022-06-03 00:00:00 Telephone Alejo Lloyd Romie [facility] 1.2.840.114 350.1.13.10 4.2.7.2.686 [id number] 147 [id number] [facility] 2022-05-30 00:00:00 2022-05-30 00:00:00 Telephone Alejo Lloyd Romie [facility] 1.2.840.114 350.1.13.10 4.2.7.2.686 [id number] 147 [id number] [facility] 2022-05-29 00:00:00 2022-05-29 00:00:00 Telephone Alejo Lloyd Romie [facility] 1.2.840.114 350.1.13.10 4.2.7.2.686 [id number] 147 [id number] [facility] 2022-05-23 11:00:00 2022-05-23 11:43:52 Outpatient R ANDRYDelia ZAIDI [facility] [id number] [facility] 2022-05-23 11:00:00 2022-05-23 11:43:52 Office Visit Bo zaidi [facility] 1.2840.114 350.1.13.10 4.2.7.2.686 [id number] 225 [id number] [facility] 2022-05-23 00:00:00 2022-05-23 00:00:00 Letter (Out) Bo zaidi [facility] 1.2840.114 350.1.13.10 4.2.7.2.686 [id number] 225 [id number] [facility] 2022-05-23 00:00:00 2022-05-23 00:00:00 Letter (Out) Bo zaidi [facility] 1.2840.114 350.1.13.10 4.2.7.2.686 [id number] 225 [id number] [facility] 2022-05-21 13:20:00 2022-05-21 13:46:44 Outpatient R SUSHMA SESAY [facility] [id number] [facility] 2022-05-21 13:20:00 2022-05-21 13:46:44 Office Visit Lázaro Sushma [facility] 1.2.840.114 350.1.13.10 4.2.7.2.686 [id number] 225 [id number] [facility] 2022-05-21 00:00:00 2022-05-21 00:00:00 Letter (Out) Lázaro Sushma [facility] 1.2.840.114 350.1.13.10 4.2.7.2.686 [id number] 225 [id number] [facility] 2022-05-21 00:00:00 2022-05-21 00:00:00 Telephone Alejo Lloyd [facility] 1.2840.114 350.1.13.10 4.2.7.2.686 [id number] 147 [id number] [facility] 2022-03-20 23:51:00 2022-03-21 03:03:00 Emergency X RICARDO SEVERINO [facility] ERT [id number] [facility] 2022-03-20 23:51:00 2022-03-21 03:03:00 Emergency Ricardo Severino S [facility] 1.2840.114 350.1.13.10 4.2.7.2.686 [id number] [facility] 2022-03-20 00:00:00 2022-03-20 00:00:00 Orders Only Doctor Unassigned, [place] [facility] 1.2840.114 350.1.13.10 4.2.7.2.686 [id number] [id number] [facility] 2022-02-28 00:00:00 2022-02-28 00:00:00 Telephone Alejo Lloyd [facility] 1.2840.114 350.1.13.10 4.2.7.2.686 [id number] 147 [id number] [facility] 2022-02-26 00:00:00 2022-02-26 00:00:00 Telephone Hanna Jc [facility] 1.2.840.114 350.1.13.10 4.2.7.2.686 [id number] 147 [id number] [facility] 2022-02-24 10:30:00 2022-02-24 11:00:00 Office Visit Alejo Lloyd Romie [facility] 1.2.840.114 350.1.13.10 4.2.7.2.686 [id number] 147 [id number] [facility] 2022-02-24 10:30:00 2022-02-24 11:00:00 Office Visit Alejo Lloyd Romie [facility] 1.2.840.114 350.1.13.10 4.2.7.2.686 [id number] 147 [id number] [facility] 2022-02-24 10:30:00 2022-02-24 10:30:00 Outpatient R PREMAALEJO [facility] [id number] [facility] 2022-02-24 10:30:00 2022-02-24 10:30:00 Outpatient R PREMAALEJO [facility] [id number] [facility] 2022-02-24 10:30:00 2022-02-24 10:30:00 Outpatient R PREMAALEJO [facility] [id number] [facility] 2022-01-30 09:00:00 2022-01-30 09:00:00 Outpatient SUSHMA CAROLINA [facility] [id number] [facility] 2022-01-14 00:00:00 2022-01-14 00:00:00 Telephone Alejo Lloyd Romie [facility] 1.2.840.114 350.1.13.10 4.2.7.2.686 [id number] [facility] 2022-01-01 00:00:00 2022-01-01 00:00:00 Telephone Lázaro Sushma [facility] 1.2.840.114 350.1.13.10 4.2.7.2.686 [id number] 225 [id number] [facility] 2021-12-30 08:20:00 2021-12-30 08:40:00 Office Visit Lázaro, [facility] 1.2.840.114 350.1.13.10 4.2.7.2.686 [id number] 225 [id number] [facility] 2021-12-30 08:20:00 2021-12-30 08:20:00 Outpatient R LÁZARO, [facility] [id number] [facility] 2021-12-30 00:00:00 2021-12-30 00:00:00 Letter (Out) Ivonne Nayak [facility] 1.2.840.114 350.1.13.10 4.2.7.2.686 [id number] 225 [id number] [facility] 2021-12-09 09:00:00 2021-12-09 09:32:26 Outpatient R LÁZARO [facility] [id number] [facility] 2021-12-09 09:00:00 2021-12-09 09:32:26 Office Visit Lázaro, [facility] 1.2.840.114 350.1.13.10 4.2.7.2.686 [id number] 225 [id number] [facility] 2021-12-09 09:00:00 2021-12-09 09:32:26 Outpatient R LÁZARO [facility] [id number] [facility] 2021-12-09 00:00:00 2021-12-09 00:00:00 Letter (Out) Sushma Sesay [facility] 1.2.840.114 350.1.13.10 4.2.7.2.686 [id number] 225 [id number] [facility] 2021-11-29 15:30:00 2021-11-29 15:49:23 Outpatient R IVONNE NAYAK [facility] [id number] [facility] 2021-11-29 15:30:00 2021-11-29 15:49:23 Office Visit Ivonne Nayak [facility] 1.2.840.114 350.1.13.10 4.2.7.2.686 [id number] 225 [id number] [facility] 2021-11-29 00:00:00 2021-11-29 00:00:00 Letter (Out) Ivnone Nayak [facility] 1.2.840.114 350.1.13.10 4.2.7.2.686 [id number] 225 [id number] [facility] 2021-11-27 00:00:00 2021-11-27 00:00:00 Telephone Ivonne Nayak [facility] 1.2.840.114 350.1.13.10 4.2.7.2.686 [id number] 225 [id number] [facility] 2021-11-18 09:00:00 2021-11-18 11:00:05 Office Visit Christiano Hartman [facility] 1.2.840.114 350.1.13.10 4.2.7.2.686 [id number] [facility] 2021-11-18 09:00:00 2021-11-18 11:00:05 Outpatient R CHRISTIANO HARTMAN [facility] [id number] [facility] 2021-11-18 09:00:00 2021-11-18 09:00:00 Outpatient R CHRISTIANO HARTMAN [facility] [id number] [facility] 2021-11-18 09:00:00 2021-11-18 09:00:00 Outpatient R CHRISTIANO HARTMAN [facility] [id number] [facility] 2021-11-18 09:00:00 2021-11-18 09:00:00 Outpatient R CHRISTIANO HARTMAN [facility] [id number] [facility] 2021-11-18 09:00:00 2021-11-18 09:00:00 Outpatient R CHRISTIANO HARTMAN [facility] [id number] [facility] 2021-11-18 09:00:00 2021-11-18 09:00:00 Outpatient R CHRISTIANO HARTMAN [facility] [id number] [facility] 2021-11-18 09:00:00 2021-11-18 09:00:00 Outpatient R CHRISTIANO HARTMAN [facility] [id number] [facility] 2021-11-18 00:00:00 2021-11-18 00:00:00 Letter (Out) Devan [facility] 1..114 350.1.13.10 4.2.7.2.686 [id number] [facility] 2021-11-18 00:00:00 2021-11-18 00:00:00 Letter (Out) Christiano Hartman [facility] 1.840.114 350.1.13.10 4.2.7.2.686 [id number] [facility] 2021-11-18 00:00:00 2021-11-18 00:00:00 Orders Only Doctor Unassigned, [place] [facility] 1.840.114 350.1.13.10 4.2.7.2.686 [id number] [id number] [facility] 2021-10-30 08:50:00 2021-10-30 09:19:34 Outpatient R IVONNE NAYAK [facility] [id number] [facility] 2021-10-30 08:50:00 2021-10-30 09:19:34 Office Visit Ivonne Nayak Orlin [facility] 1.2.840.114 350.1.13.10 4.2.7.2.686 [id number] 225 [id number] [facility] 2021-10-30 00:00:00 2021-10-30 00:00:00 Letter (Out) Malini Ivonne Orlin [facility] 1.284.114 350.1.13.10 4.2.7.2.686 [id number] 225 [id number] [facility] 2021-10-09 09:10:00 2021-10-09 10:00:26 Outpatient R IVONNE NAYAK [facility] [id number] [facility] 2021-10-09 09:10:00 2021-10-09 10:00:26 Office Visit Ivonne Nayak Orlin [facility] 1.84.114 350.1.13.10 4.2.7.2.686 [id number] 225 [id number] [facility] 2021-10-09 09:10:00 2021-10-09 10:00:26 Outpatient R IVONNE NAYAK [facility] [id number] [facility] 2021-09-13 10:40:00 2021-09-13 11:02:02 Outpatient R YENI REINA [facility] [id number] [facility] 2021-09-13 10:40:00 2021-09-13 11:02:02 Office Visit Yeni Reina [facility] 1.284.114 350.1.13.10 4.2.7.2.686 [id number] 225 [id number] [facility] 2021-09-13 10:40:00 2021-09-13 11:02:02 Outpatient YENI MORELAND [facility] [id number] [facility] 2021-09-13 10:40:00 2021-09-13 11:02:02 Outpatient YENI MORELAND [facility] [id number] [facility] 2021-09-13 00:00:00 2021-09-13 00:00:00 Orders Only Doctor Unassigned, [place] [facility] 1..840.114 350.1.13.10 4.2.7.2.686 [id number] [facility] 2021-09-11 13:00:00 2021-09-11 13:23:13 Office Visit Zain Rosas [facility] 1..840.114 350.1.13.10 4.2.7.2.686 [id number] [facility] 2021-09-11 13:00:00 2021-09-11 13:23:13 Outpatient R ALISONZAIN [facility] [id number] [facility] 2021-09-11 13:00:00 2021-09-11 13:23:13 Outpatient ZAIN SEPULVEDA [facility] [id number] [facility] 2021-09-11 13:00:00 2021-09-11 13:00:00 Outpatient ZAIN SEPULVEDA [facility] [id number] [facility] 2021-09-11 00:00:00 2021-09-11 00:00:00 Letter (Out) Zain Rosas [facility] 1.2.840.114 350.1.13.10 4.2.7.2.686 [id number] 225 [id number] [facility] 2021-08-12 08:49:00 2021-08-12 10:08:00 Emergency JENNIFER DAMIAN [facility] [id number] [facility] 2021-08-12 08:49:00 2021-08-12 10:08:00 Emergency Jennifer Roche [facility] 1.2.840.114 350.1.13.10 4.2.7.2.686 [id number] [facility] 2021-08-12 08:49:00 2021-08-12 10:08:00 Emergency JENNIFER DAMIAN [facility] ERT [id number] [facility] 2021-08-12 08:49:00 2021-08-12 10:08:00 Emergency X JENNIFER ROCHE [facility] ERT [id number] [facility] 2021-08-12 08:49:00 2021-08-12 10:08:00 Emergency X JENNIFER ROCHE [facility] ERT [id number] [facility] 2021-07-05 09:15:00 2021-07-05 12:26:00 Emergency X Jessica ORTEGA [facility] ERT [id number] [facility] 2021-07-05 09:15:00 2021-07-05 12:26:00 Emergency Jessica Ortega [facility] 1.2840.114 350.1.13.10 4.2.7.2.686 [id number] [facility] 2021-07-01 08:30:00 2021-07-01 08:53:10 Outpatient R IVONNE NAYAK [facility] [id number] [facility] 2021-07-01 08:21:58 2021-07-01 08:53:10 Office Visit Ivonne Nayak [facility] 1.2.840.114 350.1.13.10 4.2.7.2.686 [id number] 225 [id number] [facility] 2021-07-01 00:00:00 2021-07-01 00:00:00 Letter (Out) Ivonne Nayak [facility] 1.2.840.114 350.1.13.10 4.2.7.2.686 [id number] 225 [id number] [facility] 2021-06-12 08:12:56 2021-06-12 09:00:36 Office Visit Ivonne Nayak [facility] 1.2.840.114 350.1.13.10 4.2.7.2.686 [id number] 225 [id number] [facility] 2021-06-12 08:30:00 2021-06-12 08:30:00 Outpatient R IVONNE NAYAK [facility] [id number] [facility] 2021-06-12 00:00:00 2021-06-12 00:00:00 Orders Only Doctor Unassigned, [place] [facility] 1.2.840.114 350.1.13.10 4.2.7.2.686 [id number] [facility] 2021-06-12 00:00:00 2021-06-12 00:00:00 Letter (Out) Ivonne Nayak [facility] 1.2.840.114 350.1.13.10 4.2.7.2.686 [id number] 225 [id number] [facility] 2021-05-20 10:37:41 2021-05-20 11:18:33 Office Visit Ivonne Nayak [facility] 1.2.840.114 350.1.13.10 4.2.7.2.686 [id number] 225 [id number] [facility] 2021-05-20 10:50:00 2021-05-20 10:50:00 Outpatient R IVONNE NAYAK [facility] [id number] [facility] 2021-05-20 00:00:00 2021-05-20 00:00:00 Letter (Out) Ivonne Nayak [facility] 1.2.840.114 350.1.13.10 4.2.7.2.686 [id number] 225 [id number] [facility] 2021-05-20 00:00:00 2021-05-20 00:00:00 Letter (Out) Ivonne Nayak [facility] 1.2.114 350.1.13.10 4.2.7.2.686 [id number] [facility] 2021-05-17 10:50:00 2021-05-17 10:50:00 Outpatient IVONNE TUTTLE [facility] [id number] [facility] 2021-04-30 15:18:22 2021-04-30 16:18:22 Nurse Visit Therapy, [facility] Kathi Infusion Harman Escalona [facility] 1.84.114 350.1.13.10 4.2.7.2.686 [id number] [facility] 2021-04-30 15:18:22 2021-04-30 16:18:22 Nurse Visit Therapy, [facility] Kathi Infusion Singer [facility] 1.84.114 350.1.13.10 4.2.7.2.686 [id number] [facility] 2021-04-30 15:30:00 2021-04-30 15:30:00 Outpatient R HARMAN ESCALONA [facility] [id number] [facility] 2021-04-25 13:20:00 2021-04-25 13:20:00 Outpatient SUSHMA BROWN [facility] [id number] [facility] 2021-04-24 09:03:00 2021-04-24 12:06:00 Emergency Harman Escalona [facility] 1.284.114 350.1.13.10 4.2.7.2.686 [id number] [facility] 2021-04-24 09:03:00 2021-04-24 12:06:00 Harman Villa [facility] 1.2.840.114 350.1.13.10 4.2.7.2.686 [id number] [facility] 2021-04-08 11:12:30 2021-04-08 12:13:30 Office Visit Yeni Reina [facility] 1.2.840.114 350.1.13.10 4.2.7.2.686 [id number] [facility] 2021-04-08 11:20:00 2021-04-08 11:20:00 Outpatient YENI MORELAND [facility] [id number] [facility] 2021-03-25 08:33:34 2021-03-25 09:37:23 Office Visit Yeni Reina [facility] 1.2.840.114 350.1.13.10 4.2.7.2.686 [id number] [facility] 2021-03-25 08:40:00 2021-03-25 08:40:00 Outpatient R YENI REINA [facility] [id number] [facility] 2021-03-25 08:40:00 2021-03-25 08:40:00 Outpatient R YENI REINA [facility] [id number] [facility] 2021-03-15 08:56:12 2021-03-15 10:15:11 Office Visit Yeni Reina [facility] 1.2.840.114 350.1.13.10 4.2.7.2.686 [id number] [facility] 2021-03-15 09:00:00 2021-03-15 09:00:00 Outpatient R YENI REINA [facility] [id number] [facility] 2021-03-15 00:00:00 2021-03-15 00:00:00 Letter (Out) Yeni Reina [facility] 1.2.840.114 350.1.13.10 4.2.7.2.686 [id number] 225 [id number] [facility] 2021-02-05 00:00:00 2021-02-05 00:00:00 Telephone Alejo Lloyd Rafael Romie [facility] 1.2.840.114 350.1.13.10 4.2.7.2.686 [id number] [facility] 2021-02-01 00:00:00 2021-02-01 00:00:00 Telephone Ivonne Nayak [facility] 1.2.840.114 350.1.13.10 4.2.7.2.686 [id number] 225 [id number] [facility] 2020-12-10 12:37:56 2020-12-10 13:10:49 Office Visit Ivonne Nayak [facility] 1.2.840.114 350.1.13.10 4.2.7.2.686 [id number] 225 [id number] [facility] 2020-12-10 12:50:00 2020-12-10 12:50:00 Outpatient R IVONNE NAYAK [facility] [id number] [facility] 2020-11-21 00:00:00 2020-11-21 00:00:00 Telephone Alejo Lloyd Timclemencia Romie [facility] 1.2.840.114 350.1.13.10 4.2.7.2.686 [id number] [facility] 2020-11-09 00:00:00 2020-11-09 00:00:00 Telephone Alejo Lloyd Rafael Romie [facility] 1.2.840.114 350.1.13.10 4.2.7.2.686 [id number] [facility] 2020-11-08 10:00:00 2020-11-08 10:00:00 Outpatient R CHRISTIANO HARTMAN [facility] [id number] Neelam mijares [facility] 2020-11-08 00:00:00 2020-11-08 00:00:00 Letter (Out) Doctor Unassigned, [place] [facility] 1.2.840.114 350.1.13.10 4.2.7.2.686 [id number] [facility] [id number] [facility] 2020-10-22 14:40:00 2020-10-22 14:40:00 Outpatient R YORDAN SELF [facility] [id number] [facility] 2020-10-22 09:22:20 2020-10-22 09:38:15 Nurse Visit Nurse, Charline Carpio Yordan Self [facility] 1.2.840.114 350.1.13.10 4.2.7.2.686 [id number] [facility] 2020-10-22 00:00:00 2020-10-22 00:00:00 Letter (Out) Yordan Self [facility] 1.2.840.114 350.1.13.10 4.2.7.2.686 [id number] [facility] 2020-10-19 00:00:00 2020-10-19 00:00:00 Telephone Alejo Lloyd Rafael [facility] 1.2.840.114 350.1.13.10 4.2.7.2.686 [id number] 147 [id number] [facility] 2020-10-10 00:00:00 2020-10-10 00:00:00 Telephone Alejo Lloyd Timclemencia [facility] 1.2.840.114 350.1.13.10 4.2.7.2.686 [id number] 147 [id number] [facility] 2020-10-04 10:00:00 2020-10-04 10:00:00 Outpatient CHRISTIANO LE [facility] [id number] [place] [facility] 2020-10-02 10:30:00 2020-10-02 10:30:00 Outpatient SEBASTIEN LANDEROS [facility] [id number] [facility] 2020-10-02 00:00:00 2020-10-02 00:00:00 Orders Only Doctor Unassigned, [place] [facility] 1.2.840.114 350.1.13.10 4.2.7.2.686 [id number] [facility] 2020-09-28 00:00:00 2020-09-28 00:00:00 Telephone Claudia Johnson [facility] 1.2.840.114 350.1.13.10 4.2.7.2.686 [id number] 147 [id number] [facility] 2020-09-26 00:00:00 2020-09-26 00:00:00 Telephone Alejo Lloyd Romie [facility] 1.2.840.114 350.1.13.10 4.2.7.2.686 [id number] [facility] 2020-09-26 00:00:00 2020-09-26 00:00:00 Telephone Ivonne Nayak [facility] 1.2.840.114 350.1.13.10 4.2.7.2.686 [id number] 225 [id number] [facility] 2020-09-25 00:00:00 2020-09-25 00:00:00 Letter (Out) Ivonne Nayak [facility] 1.2.840.114 350.1.13.10 4.2.7.2.686 [id number] 225 [id number] [facility] 2020-09-24 13:40:00 2020-09-24 13:40:00 Outpatient YORDAN MCKEON [facility] [id number] [facility] 2020-09-24 09:33:13 2020-09-24 09:53:13 Nurse Visit Nurse, Charline Carpio Yordan Self [facility] 1.2.840.114 350.1.13.10 4.2.7.2.686 [id number] [facility] 2020-09-24 00:00:00 2020-09-24 00:00:00 Letter (Out) Yordan Self [facility] 1.2.840.114 350.1.13.10 4.2.7.2.686 [id number] [facility] 2020-09-24 00:00:00 2020-09-24 00:00:00 Telephone Ivonne Nayak [facility] 1.2.840.114 350.1.13.10 4.2.7.2.686 [id number] [facility] 2020-09-18 00:00:00 2020-09-18 00:00:00 Telephone Ivonne Nayak [facility] 1.2.840.114 350.1.13.10 4.2.7.2.686 [id number] [facility] 2020-09-14 00:00:00 2020-09-14 00:00:00 Telephone Claudia Johnson [facility] 1.2.840.114 350.1.13.10 4.2.7.2.686 [id number] [facility] 2020-09-14 00:00:00 2020-09-14 00:00:00 Telephone Claudia Johnson [facility] 1.2.840.114 350.1.13.10 4.2.7.2.686 [id number] [facility] 2020-09-11 00:00:00 2020-09-11 00:00:00 Telephone Ivonne Nayak [facility] 1.2.840.114 350.1.13.10 4.2.7.2.686 [id number] 225 [id number] [facility] 2020-09-10 10:31:00 2020-09-10 11:01:00 Office Visit Prema Russelldiana Hall [facility] 1.2.840.114 350.1.13.10 4.2.7.2.686 [id number] [facility] 2020-09-10 08:01:22 2020-09-10 08:55:15 Office Visit Ivonne Nayak [facility] 1.2.840.114 350.1.13.10 4.2.7.2.686 [id number] [facility] 2020-09-10 08:10:00 2020-09-10 08:10:00 Outpatient R IVONNE NAYAK [facility] [id number] [facility] 2020-09-10 00:00:00 2020-09-10 00:00:00 Letter (Out) Ivonne Nayak [facility] 1.2.840.114 350.1.13.10 4.2.7.2.686 [id number] [facility] 2020-09-10 00:00:00 2020-09-10 00:00:00 Letter (Out) Ivonne Nayak [facility] 1.2.840.114 350.1.13.10 4.2.7.2.686 [id number] [facility] 2020-09-10 00:00:00 2020-09-10 00:00:00 Letter (Out) Prema Alejo Rafael [facility] 1.2.840.114 350.1.13.10 4.2.7.2.686 [id number] [facility] 2020-09-07 10:00:00 2020-09-07 10:00:00 Outpatient R ALEJO LLOYD [facility] [id number] [facility] 2020-09-03 13:34:57 2020-09-03 14:19:15 Office Visit Yeni Reina [facility] 1..114 350.1.13.10 4.2.7.2.686 [id number] [facility] 2020-09-03 13:40:00 2020-09-03 13:40:00 Outpatient YENI MORELAND [facility] [id number] [facility] 2020-08-27 08:50:00 2020-08-27 08:50:00 Outpatient IVONNE TUTTLE [facility] [id number] [facility] 2020-08-21 09:25:47 2020-08-21 09:46:57 Nurse Visit NurseJazz [facility] 1..114 350.1.13.10 4.2.7.2.686 [id number] 225 [id number] 2020-08-21 09:25:47 2020-08-21 09:46:57 Nurse Visit NurseJazz Amy C [facility] 1.114 350.1.13.10 4.2.7.2.686 [id number] [facility] 2020-08-21 09:30:00 2020-08-21 09:30:00 Outpatient IVONNE TUTTLE [facility] [id number] [facility] 2020-06-20 12:49:20 2020-06-20 13:58:11 Office Visit Ivonne Nayak [facility] 1..114 350.1.13.10 4.2.7.2.686 [id number] [facility] 2020-06-20 12:49:20 2020-06-20 13:58:11 Office Visit Ivonne Nayak [facility] 1.114 350.1.13.10 4.2.7.2.686 [id number] 2020-06-20 13:10:00 2020-06-20 13:10:00 Outpatient IVONNE TUTTLE [facility] [id number] [facility] 2020-05-21 08:23:28 2020-05-21 08:32:31 Nurse Visit Nurse, Ivonne Wesley [facility] 1.114 350.1.13.10 4.2.7.2.686 [id number] [facility] 2020-05-21 08:20:00 2020-05-21 08:20:00 Outpatient IVONNE TUTTLE [facility] [id number] [facility] 2020-05-21 00:00:00 2020-05-21 00:00:00 Orders Only Doctor Unassigned, [place] [facility] 1.114 350.1.13.10 4.2.7.2.686 [id number] [facility] 2020-05-14 13:30:00 2020-05-14 13:30:00 Outpatient IVONNE TUTTLE [facility] [id number] [facility] 2020-05-06 15:21:00 2020-05-06 19:19:00 Emergency X CHEN SHIELDS [facility] ERT [id number] [facility] 2020-05-06 15:21:00 2020-05-06 19:19:00 Emergency Chen Shields [facility] 1..114 350.1.13.10 4.2.7.2.686 [id number] [facility] 2020-05-06 00:00:00 2020-05-06 00:00:00 Orders Only Doctor Unassigned, [place] [facility] 1.114 350.1.13.10 4.2.7.2.686 [id number] [facility] 2020-04-05 21:49:00 2020-04-06 00:26:00 Emergency Hu Jeison Andrea [facility] 1..114 350.1.13.10 4.2.7.2.686 [id number] [facility] 2020-02-20 09:02:57 2020-02-20 09:22:57 Nurse Visit Nurse, Ivonne Wesley [facility] 1.114 350.1.13.10 4.2.7.2.686 [id number] [facility] 2020-02-20 09:00:00 2020-02-20 09:00:00 Outpatient R IVONNE NAYAK [facility] [id number] [facility] 2020-02-15 07:35:19 2020-02-15 08:48:51 Office Visit Ivonne Nayak [facility] 1.114 350.1.13.10 4.2.7.2.686 [id number] [facility] 2020-02-15 07:50:00 2020-02-15 07:50:00 Outpatient IVONNE TUTTLE [facility] [id number] [facility] 2019-12-23 15:30:00 2019-12-23 15:30:00 Outpatient IVONNE TUTTLE [facility] [id number] [facility] 2019-12-23 12:47:38 2019-12-23 13:07:38 Telemedici ne Visit Ivonne Nayak [facility] 1.114 350.1.13.10 4.2.7.2.686 [id number] [facility] 2019-12-22 01:51:19 2019-12-22 02:57:00 Emergency X CHRISTIANO DISLA [facility] ERT [id number] 2019-12-22 01:51:19 2019-12-22 02:57:00 Emergency Christiano Disla [facility] 1.2.840.114 350.1.13.10 4.2.7.2.686 [id number] [facility] 2019-12-22 00:00:00 2019-12-22 00:00:00 Telephone Ivonne Nayak [facility] 1.2840.114 350.1.13.10 4.2.7.2.686 [id number] [facility] 2019-10-04 21:24:15 2019-10-04 23:11:00 Emergency X RICARDO SEVERINO [facility] ERT [id number] [facility] 2019-10-04 21:24:15 2019-10-04 23:11:00 Emergency Ricardo Severino S [facility] 1.2.840.114 350.1.13.10 4.2.7.2.686 [id number] [facility] 2019-10-04 14:30:42 2019-10-04 15:36:54 Office Visit Zain Rosas [facility] 1.2.840.114 350.1.13.10 4.2.7.2.686 [id number] [facility] 2019-10-04 00:00:00 2019-10-04 00:00:00 Letter (Out) Ivonne Nayak [facility] 1.2.840.114 350.1.13.10 4.2.7.2.686 [id number] [facility] 2019-10-04 00:00:00 2019-10-04 00:00:00 Letter (Out) Ivonne Nayak [facility] 1.2.840.114 350.1.13.10 4.2.7.2.686 [id number] [facility] 2019-10-04 00:00:00 2019-10-04 00:00:00 Orders Only Doctor Unassigned, [place] [facility] 1.2.840.114 350.1.13.10 4.2.7.2.686 [id number] [facility] 2019-05-20 13:25:10 2019-05-20 14:25:03 Office Visit Ivonne Nayak [facility] 1.2.840.114 350.1.13.10 4.2.7.2.686 [id number] 225 [id number] [facility] 2019-05-20 00:00:00 2019-05-20 00:00:00 Orders Only Doctor Unassigned, [place] [facility] 1.2.840.114 350.1.13.10 4.2.7.2.686 [id number] [facility] 2019-05-20 00:00:00 2019-05-20 00:00:00 Letter (Out) Ivonne Nayak [facility] 1.2.840.114 350.1.13.10 4.2.7.2.686 [id number] [facility] 2019-04-15 09:56:15 2019-04-15 10:37:17 Office Visit Ivonne Nayak [facility] 1.2.840.114 350.1.13.10 4.2.7.2.686 [id number] 225 [id number] [facility] 2019-04-13 00:00:00 2019-04-13 00:00:00 Telephone Ivonne Nayak [facility] 1.2.840.114 350.1.13.10 4.2.7.2.686 [id number] [facility] Results Test Description Test Time Test Comments Results Result Co mments Source [facility] [id number] 21:34:31EXAM: US GALL BLADDER HISTORY: 19 years-old Female; Provided indication: r/o cholecystitis . TECHNIQUE: Limited abdominal ultrasound focused on the gallbladder wasperformed. The main portal vein was evaluated with color Doppler.[employer] images were obtained for the record. COMPARISON: Outside institution CT abdomen pelvis obtained on 08/24/2024 FINDINGS: The gallbladder is physiologically distended. No stone, wall thickening, orpericholecystic fluid is seen. The patient denied pain to sonographicpalpation. No biliary ductal dilatation is seen. The common duct is 0.2 cm indiameter.[facility] Nile Virus Ab [id number] 21:22:56* Test Item Value Reference Range Interpretation Comme nts West Nile Virus Antibody IgG CSF (test code = 19386-8) 0.01 See_Comment INTERPRETI VE INFORMATION: West Nile Virus Ab IgG by LEVON, CSF ?1.29 IV or less ....... Negative: No significant ?level of West Nile virus ?IgG antibody detected. ?1.30 - 1.49 IV ........ Equivocal: Questionable ?presence of West Nile ?virus IgG antibody detected. ?Repeat testing in 10-14 days ?may be helpful. ?1.50 IV or greater .... Positive: Presence of IgG ?antibody to West Nile virus ?detected, suggestive of ?current or past infection. This test is intended to be used as a semi-quantitative means of detecting West Nile virus-specific IgG in CSF samples in which there is a clinical suspicion of West Nile Virus infection. This test should not be used solely for quantitative purposes, nor should the results be used without correlation to clinical history or other data. Because other members of the Flaviviridae family, such as Titus encephalitis virus, show extensive cross-reactivity with West Nile virus, serologic testing specific for these species should be considered. The detection of antibodies to West Nile virus in cerebrospinal fluid may indicate central nervous system infection. However, consideration must be given to possible contamination by blood or transfer of serum antibodies across the blood-brain barrier. This test was developed and its performance characteristics determined by [facility]. It has not been cleared or approved by the [place] Food and Drug Administration. This test was performed in a CLIA certified laboratory and is intended for clinical purposes. [Automated message] The system which generated this result transmitted reference range: <=1.29 IV. The reference range was not used to interpret this result as normal/abnormal. West Nile Virus Antibody IgM CSF (test code = 10177-9) 0.00 See_Comment INTERPRETI VE INFORMATION: West Nile Virus Ab IgM by LEVON, CSF 0.89 IV or less ...... Negative - No significant level ? of West Nile virus IgM antibody ? detected.0.90-1.10 IV ......... Equivocal - Questionable presence ? of West Nile virus IgM antibody ? detected. Repeat testing in ? 10-14 days may be helpful.1.11 IV or greater ... Positive - Presence of IgM ? antibody to West Nile virus ? detected, suggestive of current ? or recent infection. This test is intended to be used as a semi-quantitative means of detecting West Nile virus-specific IgM in CSF samples in which there is a clinical suspicion of West Nile virus infection. This test should not be used solely for quantitative purposes, nor should the results be used without correlation to clinical history or other data. Because other members of the Flaviviridae family, such as Titus encephalitis virus, show extensive cross-reactivity with West Nile virus, serologic testing specific for these species should be considered. The detection of antibodies to West Nile virus in cerebrospinal fluid may indicate central nervous system infection. However, consideration must be given to possible contamination by blood or transfer of serum antibodies across the blood-brain barrier. This test was developed and its performance characteristics determined by [facility]. It has not been cleared or approved by the [place] Food and Drug Administration. This test was performed in a CLIA certified laboratory and is intended for clinical purposes.Performed By: [facility] [place] [id number] Director: Johnie Welch MD, PhDCLIA Number: [id number] [Automated message] The system which generated this result transmitted reference range: <=0.89 IV. The reference range was not used to interpret this result as normal/abnormal. [facility] 2 [id number] 23:56:39EXAM: XR CHEST 2 08/26/2024 4:24 PM HISTORY: 19 years-old Female with r/o pna TECHNIQUE: Frontaland lateral views of the chest. COMPARISON: Chest x-ray 04/24/2021 FINDINGS: Lungs: The lungs are clear. No focal opacities. No pleural abnormalitiesare detected. Heart/Mediastinum: The cardiomediastinal silhouette is normal in size. Musculoskeletal: No acute osseous abnormality.[facility] Hospital[facility]eningitis/Encephalitis Panel by [id number] 20:14:26* Test Item Value Reference Range Interpretation Comme nts Escherichia coli K1 (test code = 16621-4) Negative Negative, Indeterminate, See Comment Haemophilus influenzae (test code = 09985-0) Negative Negative, Indeterminate, See Comment Listeria monocytogenes (test code = 73704-8) Negative Negative, Indeterminate, See Comment Neisseria meningitidis (encapsulated) (test code = 37241-7) Negative Negative, Indeterminate, See Comment Streptococcus agalactiae (test code = 88841-9) Negative Negative, Indeterminate, See Comment Streptococcus pneumoniae (test code = 18492-8) Negative Negative, Indeterminate, See Comment Cytomegalovirus (test code = 78173-8) Negative Negative, Indeterminate, See Comment Enterovirus (test code = 24712-4) Negative Negative, Indeterminate, See Comment Herpes simplex virus 1 (test code = 81665-3) Negative Negative, Indeterminate, See Comment Herpes simplex virus 2 (test code = 11559-6) Negative Negative, Indeterminate, See Comment Human herpesvirus 6 (test code = 40826-4) Negative Negative, Indeterminate, See Comment Human parechovirus (test code = 45745-0) Negative Negative, Indeterminate, See Comment Varicella zoster virus (test code = 28555-2) Negative Negative, Indeterminate, See Comment Cryptococcus neoformans/gattii (test code = 64981-7) Negative Negative, Indeterminate, See Comment MITESH (test code = MITESH) Negative:A negativ e result does not rule-out infection. ?This assay does not test for all potential infectious agents. Positive:A positive test result does not necessarily indicate the presence of viable organism. ? Lab Interpretation (test code = 20894-4) Normal [facility] Hospital[facility] Fl[facility] Direct [id number] 19:22:43* Test Item Value Reference Range Interpretation Comme nts BF COLOR (test code = 0724874928) Clear BF WBC Count (test code = 3818669958) 1 0-5 BF RBC Count (test code = 1076605179) 1 See_Comment [Automated me ssage] The system which generated this result transmitted reference range: /?L. The reference range was not used to interpret this result as normal/abnormal. [facility] Hospital[facility] Fluid Manual [id number] 19:22:43* Test Item Value Reference Range Interpretation Comme nts BF SEGS% (test code = 57047-6) 18 % 0-7 H BF LYMPHS% (test code = 84123-6) 73 % 28-96 BF MACROPHAGE% (test code = 15854-4) 9 % 16-56 L BF #CELLS CNTD (test code = 3257162483) 11 cells/uL Lab Interpretation (test cod e = 78620-3) Abnormal [facility] HospitalCerebrospinal Fluid [id number] 18:58:31 * Test Item Value Reference Range Interpretation Comme nts GLU CSF (test code = 4200791184) 58 mg/dL 50-80 UNSPUN BODY FLUID COLOR (guanakito t code = 8209057587) Colorless UNSPUN BODY FLUID CLARITY (t est code = 8803139502) Clear SPUN BODY FLUID COLOR (test code = 7046566980) Colorless SPUN BODY FLUID CLARITY (guanakito t code = 5674801443) Clear Sediment (test code = 4846102887) No sediment [facility] Hospital[facility]erebrospinal Fluid [id number] 18:58:26 * Test Item Value Reference Range Interpretation Comme nts T. PRO CSF (test code = 0794248834) 24.0 mg/dL 15.0-45.0 UNSPUN BODY FLUID COLOR (guanakito t code = 6277685206) Colorless UNSPUN BODY FLUID CLARITY (t est code = 0953239979) Clear SPUN BODY FLUID COLOR (test code = 5369582665) Colorless SPUN BODY FLUID CLARITY (guanakito t code = 3182907789) Clear Sediment (test code = 5558102965) No sediment [facility] Head wo [id number] 19:01:04CT HEAD WO CONTRAST HISTORY: Mental status change, unknown cause COMPARISON: None TECHNIQUE: Non-contrast CT head with multi-planar reformats. FINDINGS: The ventricles and cerebral sulci are normal in caliber and configuration.No hydrocephalus, midline shift or pathological extra-axial fluidcollection is present. The basal cisterns are unremarkable. There is no acute intracranial hemorrhage or significant mass effect. Noparenchymal attenuation abnormality. The kidd-white matter differentiationis preserved. The mastoid air cells and paranasal air sinuses are clear. The calvariumand central skull base are unremarkable.[facility] Abdomen pelvis w contrast 2024-08-25 15:50:27Interpretation of outside imaging, ?CT [facility]EL[facility]24[facility]24.Today's date 08/25/2024 9:35 AM HISTORY: Abdominal abscess/infection suspected. Neutropenia and sepsis. COMPARISON: CT abdomen pelvis 05/06/2020 PROCEDURE: Axial images of chest, abdomen and pelvis are obtained withoutintravenous administration of contrast. Sagittal and coronal reformats areprovided.[facility] HospitalPOCT [id number] 19:18:00* Test Item Value Reference Range Interpretation Comme nts POCT PREG (test code = 1605) Negative On board controls acceptable with C Line (test code = 3574) Yes POCT PREG LOT # (test code = 3575) [id number] POCT PREG TEST DATE ( test code = 3576) 08-15-2025 Lab Interpretation (test cod e = 01284-3) Normal [facility] URINALYSIS W SPECIFIC [id number] 18:23:00* Test Item Value Reference Range Interpretation [...] cloudy Lab Interpretation (test cod e = 21122-0) Abnormal [facility] URINALYSIS W SPECIFIC [id number] 18:23:00* Test Item Value Reference Range Interpretation [...] cloudy Lab Interpretation (test cod e = 59171-7) Abnormal [facility] URINALYSIS W SPECIFIC [id number] 18:23:00* Test Item Value Reference Range Interpretation [...] cloudy Lab Interpretation (test cod e = 59162-3) Abnormal [facility] MOLECULAR [id number] 20:50:59* Test Item Value Reference Range Interpretation Comme nts POCT Molecular FluA (test co de = 67836-0) Negative Negative POCT Molecular FluB (test co de = 26911-3) Negative Negative Lab Interpretation (test cod e = 48094-7) Normal [facility] MOLECULAR [id number] 20:50:59* Test Item Value Reference Range Interpretation Comme nts POCT Molecular FluA (test co de = 42690-0) Negative Negative POCT Molecular FluB (test co de = 76005-8) Negative Negative Lab Interpretation (test cod e = 65976-5) Normal [facility] GRP A STREP (MOLECULAR)2022-05-23 16:43:00* Test Item Value Reference Range Interpretation Comme nts POCT GP A STREP (test code = 60365-8) negative Negative - Negative Lab Interpretation (test cod e = 18329-7) Normal [facility] GRP A STREP (MOLECULAR)2022-05-23 16:43:00* Test Item Value Reference Range Interpretation Comme nts POCT GP A STREP (test code = 89860-7) negative Negative - Negative Lab Interpretation (test cod e = 12703-9) Normal [facility] GRP A STREP (MOLECULAR)2022-05-23 16:43:00* Test Item Value Reference Range Interpretation Comme nts POCT GP A STREP (test code = 70764-4) negative Negative - Negative Lab Interpretation (test cod e = 00390-2) Normal [facility]. METABOLIC PANEL (10573)2022-03-21 07:04:30* Test Item Value Reference Range Interpretation Comme nts NA (test code = 1986123978) 140 mmol/L 135-145 K (test code = 8875038382) 3.9 mmol/L 3.5-5 CL (test code = 3641221415) 102 mmol/L 98-108 CO2 TOTAL (test code = 1497862409) 26 mmol/L 23-31 AGAP (test code = 1964525590) 2-16 BUN (test code = 9815718615) 10 mg/dL 7-23 GLUCOSE (test code = 8782871519) 100 mg/dL 70-110 CREATININE (test code = 2759437601) 0.56 mg/dL 0.5-1.04 TOTAL BILI (test code = 3395467269) 0.4 mg/dL 0.1-1.1 CALCIUM (test code = 2658540069) 10.1 mg/dL 8.6-10.6 T PROTEIN (test code = 3464376509) 7.5 g/dL 6.3-8.2 ALBUMIN (test code = 4549653288) 5.8 g/dL 3.5-5 H ALK PHOS (test code = 1715657151) 66 U/L 34-122 ALTv (test code = 1742-6) 12 U/L 5-35 AST(SGOT) (test code = 2670993052) 21 U/L 13-40 MITESH (test code = [...] imaging tests). Lab Interpretation (test code = 61470-7) Abnormal [facility] WITH [id number] 06:52:47* Test Item Value Reference Range Interpretation Comme nts WBC (test code = 6690-2) See_Comment [Panizon] The system which generated this result transmitted reference range: 4.50 - 13.50 10*3/?L. The reference range was not used to interpret this result as normal/abnormal. RBC (test code = 789-8) See_Comment [Panizon] The system which generated this result transmitted [...] 33.6 g/dL 32-36 RDW-SD (test code = 96337-9) 41.7 fL 38.5-49 RDW-CV (test code = 788-0) 12.8 % 11.5-14 PLT (test code = 777-3) See_Comment [Automated messa ge] The system which generated this result transmitted reference range: 135 - 361 10*3/?L. The reference range was not used to interpret this result as normal/abnormal. MPV (test code = 16236-9) 10.3 fL 9.4-13.3 NRBC/100 WBC (test code = 6936645162) See_Comment [Automated me ssage] The system which generated this result transmitted reference range: 0.0 - 10.0 /100 WBCs. The reference range was not used to interpret this result as normal/abnormal. NRBC x10^3 (test code = 1576118588) See_Comment [Automated me ssage] The system which generated this result transmitted reference range: 10*3/?L. The reference range was not used to interpret this result as normal/abnormal. GRAN MAT (NEUT) % (test code = 770-8) 46.3 % IMM GRAN % (test code = 5573441745) 0.20 % LYMPH % (test code = 736-9) 47.6 % MONO % (test code = 5905-5) 5.4 % EOS % (test code = 713-8) 0.2 % BASO % (test code = 706-2) 0.3 % GRAN MAT x10^3(ANC) (test code = 8763379323) 3.02 10*3/uL 1.5-10.3 IMM GRAN x10^3 (test code = 7645094512) 0-0.06 LYMPH x10^3 (test code = 731-0) 3.10 10*3/uL 0.7-7.4 MONO x10^3 (test code = 742-7) 0.35 10*3/uL 0-0.5 EOS x10^3 (test code = 711-2) 0-0.4 BASO x10^3 (test code = 704-7) 0-0.1 [facility] [id number] 04:59:00* Test Item Value Reference Range Interpretation Comme nts POCT PREG (test code = 1605) Negative On board controls acceptable with C Line (test code = 3574) Positive POCT PREG LOT # (test code = 3575) [id number] POCT PREG TEST DATE ( test code = 3576) 06/30/2023 Lab Interpretation (test cod e = 22335-3) Normal [facility] HospitalIMMUNOGLOBULIN E, [id number] 03:49:03* Test Item Value Reference Range Interpretation Comme nts IGE (test code = 91777-6) <2 See_Comment REFERENCE INTERV AL: Immunoglobulin E, Serum Access complete set of age- and/or gender-specific reference intervals for this test in the [facility] Test Directory ([employer]).Performed By: [facility] [place] [address] [id number] Director: Jessica Mitchell MD [Automated message] The system which generated this result transmitted reference range: <=537. The reference range was not used to interpret this result as normal/abnormal. [facility] [id number] 15:45:31 * Test Item Value Reference Range Interpretation Comme nts IgA (test code = 2064575766) 16 mg/dL 70-312 L IgG (test code = 5940106588) 425 mg/dL 636-1600 L IgM (test code = 7755232799) 22 mg/dL 56-352 L Lab Interpretation (test cod e = 98655-4) Abnormal [facility] Consult Notes Date/Time Note Provider Source 2024-08-28 10:30:00 Associated Order(s): CONSULT INFECTIOUS DISEASE INFECTIOUS DISEASES CONSULT NOTE Date of Service: 08/29/2024 00:39 Patient Name: Marlene Taylor Consultation requested by: Neo Del Rio MD Reason for Consult: has CVID, high LFTs, fever, neck px, LP neg, Bcx neg, ua neg, cxr neg. Subjective History of Present Illness: Marlene Taylor is a 19 year old female with PMH of CVID who presents with fever. Patient reports fever, followed by headache, neck pain and back pain. She also endorses nausea and vomiting. She has kittens and a dog at home. She endorses flea bites. She has also noticed possums near her house. She has been febrile with associated bradycardia. Labs here with leukopenia with bands, elevated LFTs and thrombocytopenia. LP not concerning for meningitis. On evaluation, patient is actively throwing up. Past Histories: Patient has a past medical history of ADHD, Counseling for initiation of control method (11/09/2020), CVID (common variable immunodeficiency), and Dysmenorrhea (11/09/2020). She has no past medical history of Abnormal uterine bleeding, Anemia, Anesthesia complication, Anxiety, Asthma, Autoimmune disorder, Blood dyscrasia, Breast disorder, Cancer, Clotting disorder, Coronary artery disease, Depression, Diabetes mellitus, Endocrine disorder, Endometriosis, Female infertility, Genital herpes, Genital warts, Heart murmur, Hormone disorder, Human immunodeficiency virus (HIV) disease, Hypertension, Kidney disease, Leiomyoma of uterus, Liver disease, Osteoporosis, Pap smear abnormality of cervix, PID (pelvic inflammatory disease), Rh incompatibility, Seizures, Sickle cell anemia, Substance abuse, Superficial thrombophlebitis, Thyroid disease, Transfusion history, Trauma, Tuberculosis, or Urinary incontinence. Patient has a past surgical history that includes myringotomy. Patient reports that she has never smoked. She uses smokeless tobacco. She reports that she does not drink alcohol and does not use drugs. Patient family history includes Heart in her maternal grandmother; No Significant Medical Problems in her father; Other - see comments in her mother and other family members; Stroke in her maternal grandmother. ? Current Facility-Administered Medications: azithromycin (ZITHROMAX) 500 mg in NaCl 0.9% (NS) 250 mL VIAL-MATE IV piggyback, 500 mg, IV Piggyback, Q24H Vadim GHOSH Wissam, MD, Stopped at 08/28/24 1610 doxycycline (VIBRAMYCIN) 100 mg in NaCl 0.9% (NS) 100 mL MINI-BAG, 100 mg, IV Piggyback, Q12H Vadim GHOSH Wissam, MD, Stopped at 08/28/24 1537 acetaminophen (TYLENOL) tablet 650 mg, 650 mg, Oral, Q6HPRN, Du Castellanos, proMETHazine (PHENERGAN) 25 mg in NS 50 mL IV piggyback (CNR), 25 mg, IV Piggyback, Q4HPRN, Quinton Fierro MD enoxaparin (LOVENOX) injection 40 mg, 40 mg, Subcutaneous, DAILY, Jose Shah MD, 40 mg at 08/27/24 0835 ondansetron (ZOFRAN (PF)) injection 4 mg, 4 mg, Slow IV Push, Q6HPRN, Quinton Fierro MD, 4 mg at 08/28/24 1148 ? Allergies: is allergic to vancomycin. Objective Physical Examination: Vitals: 08/28/24 1121 08/28/24 1507 08/28/24202008/28/24 2358 BP: 100/63 100/65 100/68 92/51 BP Location: Right arm Right arm Left arm Left arm Patient Position: Supine Supine Sitting Supine Pulse: 90 92 84 89 Resp: 17 17 Temp: 36.2 ?C (97.1 ?F) 36.9 ?C (98.5 ?F) 36.7 ?C (98 ?F) 36.8 ?C (98.3 ?F) TempSrc: Tympanic Tympanic SpO2: 97% 97% 98% 98% Weight: Height: General: aox4, actively throwing up on evaluation HEENT: eomi Cardio: bradycardic Resp: normal effort GI: abd soft, nd, nttp MSK: ngd Ext: no edema Skin: scattered flea bites Neuro: no obvious focal deficits Psych: alert & cooperative Antimicrobial Hx: Current: ampicillin, cefepime, levofloxacin and linezolid Previous: ceftriaxone Laboratory: (most recent, double check dates): Chemistry 08/28/2024 CBC 08/28/2024 LFTs 08/28/2024 Coags, Infl Mrks 137 101 5 (L) 96 5.90 11.2 (L) 233 AST 235 (H) ALT 138 (H) INR - PTT - 3.3 (L) 30 0.36 (L) 31.6 (L) AlkP 171 (H) T Candido 0.8 LA - ESR - Ca 8.8 Mg 2.2 ANC 3.40 EOS <0.03 (L) Prot 6.0 (L) Alb 3.9 PrCal - CRP - Microbiology: No results found for the last 90 days. Relevant Radiology: Reviewed Assessment & Plan Cat scratch disease vs murine typhus Patient presented with fevers and associated headache, neck pain and back pain. Reports that she has kittens, dogs at home and have seen possums by her house. She has been bitten by fleas recently. Has been febrile with temperature pulse dissociation. LP not concerning for meningitis. Labs significant for thrombocytopenia, leukopenia with bands, and elevated LFTs. Complicating Conditions: CVID Recommendation summary: Start doxycycline 100 mg BID and azithromycin 500 mg x1, then 250 mg x4 days Stop ampicillin, cefepime, levofloxacin and linezolid Obtain typhus IgG/IgM, bartonella IgG/IgM, and leptospira IgG/IgM now and again 2 weeks later Pt discussed with ID faculty. Melita Craft Infectious Disease Fellow FACTURING SPECIALIST Associated attestation - Kiki Bolivar MD PhD - 08/29/2024 4:11 PM MANUFACTURING SPECIALIST I personally examined the patient on 08/28/2024 and agree with note as written by Dr. Craft. I actively participated in the decision-making process. Please see the fellow's note for additional details. INFECTIOUS DISEASE [facility] 2024-08-25 15:08:49 Associated Order(s): CONSULT FOOD AND NUTRITION MEDICAL NUTRITION THERAPY ASSESSMENT NOTE REASON FOR CONSULT: MD Consult for low BMI/ONS and Nursing Screen: NRS Score: 4 Has the patient had a reduced dietary intake in the last week?: No Has the patient lost weight in the last 3 months?: No Severity of disease: Mild NUTRITION ASSESSMENT: PMH/PSH: Past Medical History: Diagnosis Date ADHD Counseling for initiation of control method 11/09/2020 CVID (common variable immunodeficiency) Dysmenorrhea 11/09/2020 Past Surgical History: Procedure Laterality Date MYRINGOTOMY Current Medical Condition: Patient admitted with sepsis, suspect meningitis; CVID Subjective: No answer on phone when RD called. Per chart review, patient with nausea, no documented PO. Pt in with fever. No known D/C. Will attempt full history and NFPE upon follow up. Patient is low weight; however, appears relatively stable over the last several months with overall ~8# gain over the last year. Nursing GI Assessment: Abdomen inspection: Non-distended, Flat Reported/observed symptoms: (!) Nausea; Edema/Ascites: none Wounds per LDA/Avatar: None Nutrition Focused Physical Exam Nutrition Focused Physical Exam not assessed due to Reason: RD not on campus Hvac Engineer Strength Assessed: No Pertinent Medications: acyclovir, ampicillin, cefepime, enoxaparin, levofloxacin, ondansetron Lab and Medical Test Results: CBC: Recent Labs 08/24/24 1206 08/25/24 0821 WBC 2.04* 3.75* RBC 4.03 3.47* HGB 12.2 10.7* HCT 35.4* 29.9* MCV 87.8 86.2 MCHC 34.5 35.8* BMP: Recent Labs 08/24/24 1206 08/25/24 0823 NA 139 133* K 3.9 3.2* CL 104 100 TCO2 29 31 AGAP 6 2 MG 1.8 1.5* GLU 152* 101 BUN 6* 6* CREAT 0.47* | 0.46* 0.52 EGFR 140.0 | 140.7 136.6 CA 8.6 8.6 ALB 4.3 -- TRIG 123 -- Anthropometrics: 19 year old female Ht Readings from Last 1 Encounters: 08/24/24 1.6 m (5' 3") Weight History: Wt Readings from Last 9 Encounters: 08/24/24 44 kg (97 lb) 08/22/24 41.7 kg (92 lb) (<1%, Z= -2.60)* 08/11/24 44.2 kg (97 lb 6.4 oz) (2%, Z= -2.06)* 05/10/24 44.2 kg (97 lb 6 oz) (2%, Z= -2.05)* 02/26/24 42.6 kg (94 lb) (<1%, Z= -2.38)* 02/15/24 42 kg (92 lb 11.2 oz) (<1%, Z= -2.52)* 10/21/23 40.4 kg (89 lb 1.6 oz) (<1%, Z= -2.93)* 08/05/23 40.5 kg (89 lb 4 oz) (<1%, Z= -2.91)* 07/22/23 39.5 kg (87 lb 2 oz) (<1%, Z= -3.18)* * Growth percentiles are based on CDC (Girls, 2-20 Years) data. Usual Body Weight: 40.5 kg (89 lb 4.6 oz) Percent of weight change: Percent of Weight change: 8.64% Timeframe of weight change: Timeframe of weight change: 1 year BMI: Body mass index is 17.18 kg/m?. (Underweight ) IBW: 52.3 kg %IBW: 84% Estimated Energy Needs Calories: 3006-6973 kcal/day; Gilliam-St. Jeor x AF1.3-1.5 Current Weight Protein: 44-53 g/day, 1.0-1.2 g/kg Current Weight Fluid: 9328-3353 ml/day (1 ml/kcal) or per MD/Medical Team Current Dietary Order(s): Regular Diet; Diet Texture: Regular. Food Allergies/Cultural or Yazidi Preferences: Allergies Allergen Reactions Vancomycin Itching NUTRITION DIAGNOSIS: Nutrition Dx 1: Inadequate oral intake Related to: sepsis As Evidenced by: patient with nausea, limited PO in house. (New nutrition diagnosis) NUTRITION INTERVENTION: 1. Continue Regular diet, provide antinausea prior to meals to promote PO 2. Recommend Ensure Plus High Protein BID to supplement intake NUTRITION MONITORING AND EVALUATION: A registered dietitian will f/u as indicated and review patients progress towards nutrition goals, report nutrition related information and to revise the nutrition recommendations and interventions. Goals: 1. Patient will meet >85% of EER within 5 days (New Goal Identified) 2. Patient will consume at least one Ensure supplement per day (New Goal Identified) Discharge Needs: Regular diet Lizette Levi, MS, RD, CSG, LD Clinical Dietitian Office [place] [facility] 2024-08-25 08:18:01 Associated Order(s): CONSULT ALLERGY Images from the original note were not included. ALLERGY & IMMUNOLOGY CONSULT NOTE DATE OF SERVICE: 08.25.24 REASON FOR CONSULT: immunodeficiency/ CVID HPI: Patient is a 19 year old female admitted for leukopenia with fever. Pt has CVID and primary team has concerns for sepsis. From chart review, Patient stated that 5 days ago, she developed nausea after eating a birthday cake; however, did not have any vomiting or diarrhea. She does not have any abdominal pain. No cough or shortness of breath A couple days after onset of her nausea, she developed a UTI and was prescribed a 5-day course of a unspecified abx. Of note, she presented on 2024 to the ED with complaints of flank pain and fever as well as myalgias. She had a fever of 101.4 and was tachycardiac at the time, but a UA was not an appropriate sample for diagnosis of UTI. She was discharged with antiemetics. 08/24, she presented to [facility] with similar symptoms. Vitals were T 100.8F, BP 88/54 mmHg (patient's SBP normally in 90s from outpatient visits), P 119 bpm, SpO2 100% on RA. COVID negative. POCT UA was negative for nitrites and LE, had some bacteria. WBC 3.7, PLT 166, hgb 13. BMP unremarkable. CXR unremarkable for pulmonary processes. CTAP revealed concerning findings for ileus. However has had bowel movement. This patient was previously managed by our service as an outpatient but has been lost to follow up since 01/2022. At that time, she was receiving Hizentra 8g q 2 weeks with pretreatment of antihistamines and acetaminophen. Since her last appointment, she has had 5 courses of antibiotics - 3 of azithromycin (at least one listed as for acute bronchitis) and 2 of Augmentin (being sinusitis and purulent rhinorrhea), recorded in our database. Mom is unaware of any other infections outside of some colds. No severe infections requiring IV antibiotics and no hospitalizations. Pt has some SOB currently, no respiratory issues outside of current infection. Igg 205, Iga 11, Igm 18; ANC 1.41 08/24 pt was admitted for nausea and fever with hx of CVID and concerns for sepsis vs meningitis per primary team. Immunoglobulins showed IgG 205, IgA 11, IgM 18 with an ANC of 1.41. Currently, she is being treated with cefepime, ampicilllin, acyclovir and Levaquin. [phone] - Jaime with pharmacy MEDICATIONS: Current Facility-Administered Medications Medication Dose Route Frequency Last Rate Last Admin acyclovir (ZOVIRAX) 450 mg in NaCl 0.9% (NS) 100 mL IV infusion 10 mg/kg IV Infusion Q8H ABX ampicillin (POLYCILLIN-N) 2,000 mg in NaCl 0.9% (NS) 100 mL MINI-BAG 2,000 mg IV Piggyback Q4H ABX ceFEPIme (MAXIPIME) 2,000 mg in NaCl 0.9% (NS) 100 mL MINI-BAG 2,000 mg IV Piggyback ONCE ceFEPIme (MAXIPIME) 2,000 mg in NaCl 0.9% (NS) 100 mL MINI-BAG 2,000 mg IV Piggyback Q8H ABX levoFLOXacin in D5W (LEVAQUIN) 750 mg/150 mL Piggyback 750 mg 750 mg IV Piggyback Q24H ABX enoxaparin (LOVENOX) injection 40 mg 40 mg Subcutaneous DAILY ondansetron (ZOFRAN (PF)) injection 4 mg 4 mg Slow IV Push Q6HPRN 4 mg at 08/24/24 1614 ALLERGIES: Allergies Allergen Reactions Vancomycin Itching PMFSHx: Past Medical History: Diagnosis Date ADHD CVID (common variable immunodeficiency) Dysmenorrhea 11/09/2020 Past Surgical History: Procedure Laterality Date MYRINGOTOMY Social History Tobacco Use Smoking status: Never Smokeless tobacco: Current Tobacco comments: Vapes Vaping Use Vaping status: Never Used Substance Use Topics Alcohol use: Never Drug use: Never Family History Problem Relation Age of Onset Other - see comments Mother CVID No Significant Medical Problems Father Stroke Maternal Grandmother Heart Maternal Grandmother Other - see comments Other CVID Other - see comments Other CVID Other - see comments Other IgA deficiency REVIEW OF SYSTEMS: Per HPI PHYSICAL EXAM: BP 91/55 (BP Location: Left arm, Patient Position: Supine) | Pulse 101 | Temp 39.4 ?C (102.9 ?F) | Resp 18 | Ht 5' 3" (1.6 m) | Wt 97 lb (44 kg) | SpO2 94% | BMI 17.18 kg/m? LABS / IMAGING, reviewed: CBC leukopenia ANC low, but not neutropenia + bands IgG 205, low IgA 11, low IgM, [address] A&P w contrast - Faculty Dr. Jeni Fuentes interpreted and were immediately available throughout the procedure. ASSESSMENT / PLAN / RECOMMENDATIONS: Marlene Taylor is a 19 year old female w/: CVID and acute infection, sepsis with unknown source currently. The patient does have known CVID for which she was previously receiving Hizentra. She was lost to follow up ~ 2 yrs ago, and had at that time had issues with coverage for Hizentra. Since that time she has had 2 sinus infections treated with Augmentin, and azithromycin 3 times, at least once of which was for acute bronchitis. IVIG is a prophylactic treatment option for patients with CVID to help prevent infections. It can take days to weeks to notice an improvement in symptoms after IVIG dosing. The Surviving Sepsis Campaign recommends against the routine use of IVIG in sepsis due to low quality evidence. Knowing this, we would recommend continued antibiotic treatment for the infection. We would also recommend a child protective services social worker consult to help with insurance as she is currently unfunded and would benefit from restarting IVIG in an outpatient setting. Pt does not meet criteria for inpatient IVIG per pharmacy. No IVIG today. Have discussed the possibility of giving IVIG prior to discharge vs in the clinic as an outpatient. Ideally, the patient should be recovered from her current illness. As she currently does not meet inpatient IVIG indication criteria we will plan on her giving this medication as an outpatient as well as discussing other alternative treatment strategies. She will need to be seen in our adult immunology clinic, communication sent to schedulers. Recommendations: - SS for insurance coverage - Pt does not meet criteria for inpatient IVIG. - F/U in adult clinic for restarting IVIG as an outpatient Patient seen with Dr. Jeni Fuentes. Thank you for this consult. We will continue to follow the patient peripherally. Please do not hesitate to reach out to the on-call fellow with additional questions or concerns. Romina Fisher MD Allergy and Immunology Fellow, PGY-4 FACTURING SPECIALIST Associated attestation - Jeni Fuentes MD - 08/26/2024 7:58 PM MANUFACTURING SPECIALIST I agree with Dr. Fisher's fellow note with the following addition(s)/correction(s): During childhood, patient had experienced gaps in insurance coverage and therefore, was not always receiving immunoglobulin replacement therapy regularly even prior to January 2022 (last follow up visit with primary machine welder, Dr. Lloyd). Given that patient is not currently experiencing protein-losing enteropathy, patient currently does not meet criteria for inpatient administration of immunoglobulin replacement therapy (case already discussed with inpatient pharmacist). Plan: - Continue optimizing management of current infection; appreciate thorough workup and treatment per primary team - Emphasized during conversation with patient and mom importance of outpatient follow up for long-term management of CVID (mom will try to attend appointment as well, if schedule permits) - If clinical status changes and patient meets criteria for inpatient administration of immunoglobulin replacement therapy, please notify Allergy/Immunology service I actively participated in the decision-making process. Please see the fellow note for additional details. ALLERGY & IMMUNOLOGY [facility] - Health History and Physical Notes Date/Time Note Provider Source 2024-08-24 11:28:03 [facility] Team Admit H&P Date of Service: 08/24/2024 11:43 Name: Marlene Taylor : 2005 Chief Complaint: Nausea History of Present Illness: Marlene Taylor is a 19 year old female with a PMHx CVID who presented as a transfer from [facility] with CC of nausea and fever in the setting of leukopenia and c/f sepsis. Patient stated that 5 days ago, she developed nausea after eating a birthday cake; however, did not have any vomiting or diarrhea. She does not have any abdominal pain. No cough or shortness of breath A couple days after onset of her nausea, she developed a UTI and was prescribed a 5-day course of a unspecified abx. Of note, she presented on 2024 to the ED with complaints of flank pain and fever as well as myalgias. She had a fever of 101.4 and was tachycardiac at the time, but a UA was not an appropriate sample for diagnosis of UTI. She was discharged with antiemetics. Today, she presented to [facility] with similar symptoms. Vitals were T 100.8F, BP 88/54 mmHg (patient's SBP normally in 90s from outpatient visits), P 119 bpm, SpO2 100% on RA. COVID negative. POCT UA was negative for nitrites and LE, had some bacteria. WBC 3.7, PLT 166, hgb 13. BMP unremarkable. CXR unremarkable for pulmonary processes. CTAP revealed concerning findings for ileus. However has had bowel movement. On repeat CBC noted to have leukopenia 2.6 and platelet of 100, lactic acid normal. Was started on IV vancomycin and Rocephin; however, after starting the vancomycin started having pruritus and vancomycin was held. Patient was transferred to [facility] for c/f sepsis. Denies any diarrhea or PENA or vision changes. Past Medical History: Past Medical History: Diagnosis Date ADHD CVID (common variable immunodeficiency) Dysmenorrhea 11/09/2020 Past Surgical History: Past Surgical History: Procedure Laterality Date MYRINGOTOMY Family History: Family History Problem Relation Age of Onset No Significant Medical Problems Mother Other - see comments Other CVID Other - see comments Other CVID Other - see comments Other IgA deficiency No Significant Medical Problems Father Stroke Maternal Grandmother Heart Maternal Grandmother Social History: Social History Socioeconomic History Marital status: Single Tobacco Use Smoking status: Never Smokeless tobacco: Current Tobacco comments: Vapes Vaping Use Vaping status: Never Used Substance and Sexual Activity Alcohol use: Never Drug use: Never Sexual activity: Never Social History Narrative Denies hx of physical or sexual abuse. Allergies: Allergies Allergen Reactions Vancomycin Itching Review of Systems: (-)=Negative, (+)=Positive Negative except per HPI Physical Examination: Temp: [36.4 ?C (97.5 ?F)] Pulse: [51] Resp: [18] BP: (91)/(57) MAP (mmHg): [68] General: Appears sleepy HEENT: No lymphadenopathy Cardio: RRR, no m/r/g Resp: Clear bilaterally Abd: flat, NABS, no TTP Extremities: warm, no edema, no rashes, no CVA tenderness Neuro: No focal deficits Psych: Nml affect and speech Labs (reviewed): Reviewed EKG (reviewed): Reviewed Imaging (reviewed): Reviewed Micro (reviewed): Reviewed Old Studies: Reviewed Assessment and Plan: Marlene Taylor is a 19 year old female with a past medical history as listed above admitted with the following problems: Fever Nausea Leukopenia Thrombocytopenia Common Variable Immunodeficiency Recent H/o UTI 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 Ileus found on CTAP, but patient recently had bowel movement and no acute abdominal findings from exam No respiratory symptoms to suggest PNA. CVID commonly involves GI or LRTI/URI infections. CXR from OSH did not reveal pathology. No diarrhea to suggest GI infection. Will obtain blood cultures and start broad-spectrum antibiotics. Doxycycline rather than vancomycin started given potential allergy to vancomycin. -Admit Al[place] -Admission labs -Blood cultures -Rocephin and doxycycline -IVF -May consider immunology consult tomorrow if initial lab workup unrevealing Pain: N/A Prophylaxis: DVT - lovenox Stress Ulcer: N/S Code Status: full Quinton Fierro MD Internal Medicine Scheduled meds: cefTRIAXone (ROCEPHIN) IV Piggyback, 1,000 mg, Q24H ABX doxycycline (VIBRAMYCIN) IV Piggyback, 100 mg, Q12H ABX enoxaparin (LOVENOX) adult SC Syringe, 40 mg, DAILY lactated ringers, 1,000 mL, ONCE IV meds: PRN meds: acetaminophen, 650 mg, Q6HPRN ondansetron, 4 mg, Q8HPRN FACTURING SPECIALIST Associated attestation - Neo Del Rio MD - 08/24/2024 12:13 PM MANUFACTURING SPECIALIST Images from the original note were not included. [facility] General Medicine Inpatient Service Faculty Attestation After discussion with the resident and the rounding team, I examined Marlene Sabine Nisreen on the date of service indicated. I agree with resident's note as written. I actively participated in the decision-making process regarding the patient's care. Please see the resident's note for additional details. All Medical Issues (pulled from Informative, may not be relevant to this hospitalization): Patient Active Problem List Diagnosis Date Noted Leukopenia 08/24/2024 Acute hypotension 08/24/2024 Sepsis 08/24/2024 Dysmenorrhea 11/09/2020 Counseling for initiation of control method 11/09/2020 Recurrent infections 09/10/2020 CVID (common variable immunodeficiency) 02/15/2020 Active Hospital Issues: See Resident Note for full details Principal Problem: Sepsis (POA: Yes) Date Noted: 08/24/2024 Active Problems: CVID (common variable immunodeficiency) (POA: Yes) Date Noted: 02/15/2020 Leukopenia (POA: Yes) Date Noted: 08/24/2024 Acute hypotension (POA: Yes) Date Noted: 08/24/2024 Resolved Problems: * No resolved hospital problems. * Additional Faculty Assessment (if any): N/A Neo Del Rio MD, FAAP, FACP, SFHM Portions of this note were created using a voice-recognition transcribing system. Typographical errors and incorrect words or phrases may have been missed during proofreading. Please interpret accordingly. Initial: Time spent: Initial INPT OBS Time Based Codes: 60+ minutes The time spent for patient care includes: PreCharting (eg, review of tests, notes, etc.), Obtaining and/or reviewing separately obtained history (Care Everywhere or paper records), Performing a medically appropriate examination and/or evaluation, Counseling and educating the patient/family/caregiver, Ordering medications, tests, or procedures, Ordering referrals and/or communicating with other health reproductive healthcare assistant (when not separately reported), Documenting clinical information in the electronic or other health record, Independently interpreting results (not separately reported) and/or communicating results to the patient/family/caregiver, and Care coordination (not separately reported) [facility]
[2024-10-09] MEDS ORDERED: IBUPROFEN 200 MG TAB PO ONE (15:39)
[2024-10-09] MEDS ORDERED: ACETAMINOPHEN 325 MG TABLET ONE (15:40)
[2024-10-09] MEDS ORDERED: IBUPROFEN 400 MG TAB ONE (15:40)
--- NOTE | 2024-10-09 16:24 | RAD REPORT ---
EXAMINATION: TWO VIEW CHEST XR CLINICAL INDICATION: CHEST PAIN TECHNIQUE: 2 views of the chest was performed. COMPARISON: 08/21/2024 FINDINGS: The lungs are well inflated and clear. The heart is normal in size. No displaced fractures evident. IMPRESSION: No acute or significant abnormalities.
--- NOTE | 2024-10-09 17:09 | ER ---
Nurse's Notes [facility] Name: Ana Paula Nielson Age: 19 yrs Sex: Female : 2005 Arrival Date: 10/09/2024 Time: 14:35 Bed Treatment Private MD: Diagnosis: Chest pain, unspecified Presentation: 10/09 15:13 Chief complaint: Patient states: Pain to L side of chest that is worse when taking a ss deep breath or repositioning. Coronavirus screen: Client denies travel out of the [place] in the last 14 days. Ebola Screen: Patient denies exposure to infectious person. Patient denies travel to an Ebola-affected area in the 21 days before illness onset. Initial Sepsis Screen: Does the patient meet any 2 criteria? No. Patient's initial sepsis screen is negative. Does the patient have a suspected source of infection? No. Patient's initial sepsis screen is negative. Risk Assessment: Do you want to hurt yourself or someone else? Patient reports no desire to harm self or others. Onset of symptoms was October 09, 2024. 15:13 Method Of Arrival: Ambulatory ss 15:13 Acuity: GERARD 3 ss Triage Assessment: 16:32 General: Appears in no apparent distress. Respiratory: the patient has mild shortness ph of breath. Respiratory:. [employer]: 15:14 LMP 09/20/2024, unknown ss Historical: - Allergies: 15:14 No Known Allergies; ss - Home Meds: 15:14 None [Active]; ss - PMHx: 15:14 Common Variable Immunodeficiency; ss - PSHx: 15:14 None; ss - Immunization history:: Client reports having NOT received the Covid vaccine. - Infectious Disease History:: Denies. - Social history:: Smoking status: Reported history of juuling and/or vaping. Screenin:31 [facility] ED Fall Risk Assessment (Adult) History of falling in the last 3 months, ph including since admission No falls in past 3 months (0 pts) Confusion or Disorientation No (0 pts) Intoxicated or Sedated No (0 pts) Impaired Gait No (0 pts) Mobility Assist Device Used No (0 pt) Altered Elimination No (0 pt) Score/Fall Risk Level 0 - 2 = Low Risk Oriented to surroundings, Maintained a safe environment, Hourly rounding (assess needs \T\ fall precautionary measures) done. Abuse screen: Denies threats or abuse. Denies injuries from another. Nutritional screening: No deficits noted. Tuberculosis screening: No symptoms or risk factors identified. Assessment: 16:30 General: Appears in no apparent distress. Behavior is cooperative, appropriate for age, ph anxious. Pain: Complains of pain in left lateral anterior chest. Neuro: Level of Consciousness is awake, alert, obeys commands, Oriented to person, place, time, situation. Cardiovascular: Capillary refill < 3 seconds in bilateral fingers Patient's skin is warm and dry. Respiratory: Airway is patent Respiratory effort is even, unlabored, Respiratory pattern is regular, symmetrical, Breath sounds are clear bilaterally. Derm: Skin is pink, warm \T\ dry. Vital Signs: 15:13 BP 105 / 59; Pulse 102; Resp 14; Temp 98.2(O); Pulse Ox 100% on R/A; Height 5 ft. 3 in. ss ; Pain 5/10; 17:35 BP 108 / 78; Pulse 89; Resp 18; Temp 97.9; Pulse Ox 100% on R/A; ph 15:13 Pain Scale: Adult ss ED Course: 14:38 Patient arrived in ED. ra3 14:38 Kourtney Granados PA-C is PHCP. sb4 14:38 Damion Avitia MD is Attending Physician. sb4 14:41 Kourtney Granados PA-C is PHCP. sb4 14:41 Damion Avitia MD is Attending Physician. sb4 15:14 Triage completed. ss 15:14 Arm band placed on right wrist. ss 15:43 Anne Robles, RN is Primary Nurse. ss 16:19 Chest Pa And Lat (2 Views) XRAY In Process Unspecified. EDMS 16:31 Patient has correct armband on for positive identification. Bed in low position. Call ph light in reach. Side rails up X 1. Pulse ox on. NIBP on. Door closed. Noise minimized. Warm blanket given. 17:35 No provider procedures requiring assistance completed. Patient did not have IV access ph during this emergency room visit. Administered Medications: 15:50 Drug: Ibuprofen PO 600 mg PO once Route: PO; ss 17:36 Follow up: Response: No adverse reaction ph 15:50 Drug: Acetaminophen PO 650 mg PO once Route: PO; ss 17:36 Follow up: Response: No adverse reaction ph Medication: 16:31 VIS not applicable for this client. ph Outcome: 17:08 Discharge ordered by MD. ocampo 17:35 Discharged to home ambulatory, ph 17:35 Condition: good 17:35 Discharge instructions given to patient, Instructed on discharge instructions, follow up and referral plans. medication usage, Demonstrated understanding of instructions, follow-up care, medications, Prescriptions given X 2, 17:36 Patient left the ED. ph Signatures: Dispatcher [employer] EDMS Anne Robles, FLAVIA RN Berenice Min RN RN Kourtney Granados, PA-C PA-C Lakshmi Cash ra3
--- NOTE | 2024-10-09 17:09 | EDPHYS ---
Physician Documentation [facility] Name: Ana Paula Nielson Age: 19 yrs Sex: Female : 2005 Arrival Date: 10/09/2024 Time: 14:35 Bed Treatment Private MD: ED Physician Damion Avitia HPI: 10/09 17:38 This 19 yrs old Female presents to ER via Ambulatory with complaints of Chest Pain. sb4 17:38 Patient reports left-sided anterior wall chest pain that began this morning. Denies any sb4 recent illness or coughing. States that she does vape daily but is planning to stop. Denies any difficulty breathing or shortness of breath. Denies any radiation of the pain. Denies any nausea, vomiting, diaphoresis, dizziness. ROAD TESTER: 15:14 LMP 09/20/2024, unknown ss Historical: - Allergies: 15:14 No Known Allergies; ss - Home Meds: 15:14 None [Active]; ss - PMHx: 15:14 Common Variable Immunodeficiency; ss - PSHx: 15:14 None; ss - Immunization history:: Client reports having NOT received the Covid vaccine. - Infectious Disease History:: Denies. - Social history:: Smoking status: Reported history of juuling and/or vaping. ROS: 17:38 Constitutional: Negative for fever, chills, and weight loss, sb4 17:38 Cardiovascular: Positive for chest pain, with cough, with movement, of the anterior aspect of left upper chest, 17:38 All other systems are negative, Exam: 17:38 Constitutional: This is a well developed, well nourished patient who is awake, alert, sb4 and in no acute distress. Head/Face: Normocephalic, atraumatic. Eyes: Extra-ocular motions intact. Periorbital areas with no swelling, redness, or edema. ENT: Mucous membranes moist. Chest/axilla: Normal chest wall appearance and motion. Nontender with no deformity. No lesions are appreciated. Cardiovascular: Regular rate and rhythm with a normal S1 and S2. Respiratory: No increased work of breathing, no retractions or nasal flaring. Skin: Warm, dry with normal turgor. Normal color with no rashes, no lesions, and no evidence of cellulitis. 17:38 Respiratory: Breath sounds: are clear throughout, Vital Signs: 15:13 BP 105 / 59; Pulse 102; Resp 14; Temp 98.2(O); Pulse Ox 100% on R/A; Height 5 ft. 3 in. ss ; Pain 5/10; 17:35 BP 108 / 78; Pulse 89; Resp 18; Temp 97.9; Pulse Ox 100% on R/A; ph 15:13 Pain Scale: Adult ss MDM: 14:54 Medical Screening Exam initiated sb4 17:40 Data reviewed: vital signs, nurses notes, radiologic studies, and as a result, I will sb4 discharge patient. Test considered but Not performed: Other Details Labs, EKG not indicated. Symptoms most consistent with costochondritis or musculoskeletal issue. Highly doubtful of cardiac nature. Patient in no acute distress, playing on her phone. Counseling: I had a detailed discussion with the patient and/or guardian regarding the historical points, exam findings, and any diagnostic results supporting the discharge/admit diagnosis, radiology results, the need for outpatient follow up, for definitive care, to return to the emergency department if symptoms worsen or persist or if there are any questions or concerns that arise at home. 10/09 15:20 Order name: Chest Pa And Lat (2 Views) XRAY; Complete Time: 16:25 sb4 Administered Medications: 15:50 Drug: Ibuprofen PO 600 mg PO once Route: PO; ss 17:36 Follow up: Response: No adverse reaction ph 15:50 Drug: Acetaminophen PO 650 mg PO once Route: PO; ss 17:36 Follow up: Response: No adverse reaction ph Disposition: 10/10 09:06 Co-signature as Attending Physician, Damion Aivtia MD I reviewed the patient's care rn provided by the Advanced Practice Provider and agree with the diagnosis and treatment plan. Disposition Summary: 10/09/24 17:08 Discharge Ordered Notes: Location: Home sb4 Problem: new sb4 Symptoms: have improved sb4 Condition: Stable sb4 Diagnosis - Chest pain, unspecified sb4 Followup: sb4 - With: Private Physician - When: As needed - Reason: Recheck today's complaints, Re-evaluation by your physician Discharge Instructions: - Discharge Summary Sheet sb4 - Costochondritis, [id number] sb4 - Nonspecific Chest Pain, Adult, [id number] sb4 - E-cigarette or Vaping Use-Associated Lung Injury sb4 Forms: - Work release form ph - Patient Portal Instructions sb4 - Leadership Thank You Letter sb4 Prescriptions: - Anaprox DS 550 mg Oral Tablet - take 1 tablet ORAL route every 12 hours As needed; 20 tablet; Refills: 0, sb4 Product Selection Permitted - Cyclobenzaprine 5 mg Oral Tablet - take 1 tablet ORAL route 3 times per day As needed; 15 tablet; Refills: 0, sb4 Product Selection Permitted Signatures: Dispatcher [employer] Damion De Dios MD MD rn Blanchard, Shelby, RN RN ss Brown, Sophia, PA-C PA-C sb4 Berenice Min RN ph Corrections: (The following items were deleted from the chart) 10/09 15:21 15:21 Chest Pa And Lat (2 Views)+[email or web address] ordered. [facility]
[2024-10-09 17:43] VITALS: O2SAT 100
[2024-10-09 17:44] VITALS: BP 108/78; TEMP 97.9
== END 2024-10-09 17:36 | disposition home or self-care (01) ==
LOC: ER 14:35
DX: R07.89 Other chest pain (principal)
CPT/HCPCS: 71046; 99284

== ENCOUNTER 2025-06-15 06:13 | Emergency (ER) | payer OTHER, SELFPAY ==
--- OUTSIDE RECORDS SUMMARY | 2025-06-15 06:35 | XMS REPORT | Continuity of Care Document ---
Author Name Unknown Address [address] [facility] [address] [place] [address] [facility] Address [address] [place] [address] Care Team Providers Care Force Dispatcher Name Role Phone Ivonne Nayak PA-C Primary Care Physician + Ivonne Nayak PA-C Attending Clinician [phone] Jose E Ordonez NP Attending Clinician [phone] JOSE E ORDONEZ Attending Clinician Unavailable ISREAL BUCKLEY Attending Clinician Unavail able ISREAL BUCKLEY Attending Clinician Unavail able Simona Paz Attending Clinician GANGA Obregon Attending Clinician Unavailab kassidy Islas NP, Ganga Attending Clinician [phone] IVONNE NAYAK Attending Clinician Unavailab Jeni Lawson MD Attending Clinician [phone] [facility], Infectious Attending Clinician +[phone] LEI GUTIERREZ Attending Clinician Unavailab Rebeca Couch MD Attending Clinician [phone] Neo Stauffer MD Attending Clinician +[phone] Lei Gutierrez MD Attending Clinician + [phone] Sonia ALEJANDRO, Melonie Attending Clinician Unavailable JENNIFER ROCHE Attending Clinician Unavailab JENNIFER Mueller Attending Clinician Unavailab Jennifer Mueller DO Attending Clinician + [phone] Roger ALEJANDRO, Josselyn Attending Clinician UnavailAnila SEWELL, Sushma Attending Clinician [phone] SUSHMA SESAY Attending Clinician Unavaila ASHLEY Chen Attending Clinician Unavailable GREG PATEL Attending Clinician Unavailable GREG PATEL Attending Clinician Unavailable IVY TAVARES Attending Clinician CASIE Schuster Attending Clinician Unavailable CASIE ONEIL Attending Clinician Unavailable Jovany ALEXANDER, Simona Attending Clinician Unaangela Nayak PA-C, Ivonne Ordaz Attending Clinician [phone] Doctor Unassigned, [place] Attending Clinician U kelseyaillennox Tavares MD, Ivy Attending Clinician + [phone] Kadi Romero MD Attending Clinician +- [phone] KADI ROMERO Attending Clinician Unavailgricelda Prater BROACHING MACHINE OPERATOR, Janny Martinez Attending Clinician +[phone] Lázaro SEWELL, Sushma Attending Clinician [phone] ALEJO LLOYD Attending Clinici an Unavailable Alejo Lloyd MD Attending Clin ician RICARDO SEVERINO Attending Clinician Unavailable Ricardo Solares S Attending Clinician [phone] Hanna Jc MD Attending Clinician + [phone] Christiano Hartman MD Attending Clinician [phone] CHRISTIANO HARTMAN Attending Clinician Unavailable YENI REINA Attending Clinician Unavail able Yeni Reina MD Attending Clinician [phone] Zain Rosas MD Attending Clinician [phone] ZAIN ROSAS Attending Clinician Unavailable Jessica ORTEGA Attending Clinician Unavailable Jessica Jarvis Attending Clinician [phone] Therapy, [facility] Cov[facility] Infusion Attending Clinician Unavailable Harman Escalona DO Attending Clinician [phone] HARMAN ESCALONA Attending Clinician Unavailable YORDAN SELF Attending Clinician Lesvia altman Nurse, [facility] Attending Clinician U ruth Self MD, Yordan Soto Attending Clinician + SEBASTIEN SOLANO Attending Clinician Unavailable Elizabeth MANUEL, Claudia Dowell Attending Clinician Nurse, Jazz Bucio Attending Clinician Unavailable CHEN SHIELDS Attending Clinician Unavailable Chen Shields MD Attending Clinician [phone] Jeison Farrell Attending Clinician +- [phone] CHRISTIANO DISLA Attending Clinician Unavailable Christiano Franklin Attending Clinician +- [phone] GANGA ISLAS Admitting Clinician Unavailab NEO Damico Admitting Clinician Unavailable Neo Stauffer MD Admitting Clinician [phone] KADI ROMERO Admitting Clinician UnavailCHEN Mclaughlin Admitting Clinician Unavailable CHRISTIANO DISLA Admitting Clinician Unavailable Payers Payer Name Policy Type Policy Number Effective Date Expirati on Date Source [employer]ICA[employer] [id number] 2015 00:00:00 Problems Condition Name Condition Details Condition Category Status Onset Date Resolution Date Last Treatment Date Treating Clinician Comments Source Chest pain, unspecifie d type Chest pain, unspecifie d type Disease Active 10-26 00:00: 00 [facility] Nausea Nausea Disease Active 10-26 00:00: 00 [facility] CSD (cat scratch disease) CSD (cat scratch disease) Disease Active 2023-08 00:00: 00 [facility] Hepatocell ular injury Hepatocell ular injury Disease Active 2023-08 00:00: 00 [facility] Other neutropeni a Other neutropeni a Disease Active 2023-08 00:00: 00 [facility] Lethargy Lethargy Disease Active 2023-08 00:00: 00 [facility] Fatigue, unspecifie d type Fatigue, unspecifie d type Disease Active 2023-08 2- 00:00: 00 [facility] Leukopenia Leukopenia Disease Active 2023-08 2 00:00: 00 [facility] Sepsis Sepsis Disease Active 2023-08 2 00:00: 00 [facility] Recurrent infections Recurrent infections Disease Active 1- 00:00: 00 [facility] Recurrent infections Recurrent infections Disease Active 1- 00:00: 00 [facility] 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 02-14 00:00: 00 [facility] 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 02-14 00:00: 00 [facility] Acute hypotensio n Acute hypotensio n Disease Resolve d 2023-08 00:00: 00 2024-08-25 00:00:00 2024-08-25 11:46:44 [facility] Dysmenorrh ea Dysmenorrh ea Disease Resolve d 3-12 00:00: 00 2024-08-25 00:00:00 2024-08-25 11:46:08 [facility] Counseling for initiation of control method Counseling for initiation of control method Disease Resolve d 3-12 00:00: 00 2024-08-25 00:00:00 2024-08-25 11:46:06 [facility] Weight loss Weight loss Disease Resolve d 1-11 00:00: 00 2024-08-24 00:00:00 2024-08-24 12:11:41 [facility] Weight loss Weight loss Disease Resolve d 1-11 00:00: 00 2024-08-24 00:00:00 2024-08-24 12:11:41 [facility] Allergies, Adverse Reactions, Alerts Allergy Name Allergy Type Status Severity Reaction(s) Onset Date Inactive Date Treating Clinician Comments Source VANCOMYC IN DRUG INGREDI Active ITCHING 2023-08 00:00: 00 [facility] Vancomyc in Propensi ty to adverse reaction s Active Itching 2023-08 00:00: 00 [facility] NO KNOWN ALLERGIE S Drug Class Active [facility] Family History Family Member Diagnosis Comments Start Date Stop Date Sourc e Maternal grandmother Heart [facility] Maternal grandmother Stroke [facility] Natural mother Other - see comments [facility] Other Other - see comments [facility] Social History Social Habit Start Date Stop Date Quantity Comments Source ASSERTION Not [facility] Alcoholic beverage intake 2024-10-26 00:00:00 2024-10-26 00:00:00 Lifetime non-drinker (finding) [facility] History of Social function 2024-02-15 00:00:00 2024-02-15 00:00:00 [facility] Alcohol intake 2023-10-21 00:00:00 2023-10-21 00:00:00 Lifetime non-drinker (finding) [facility] Tobacco use and exposure 2023-06-08 00:00:00 2023-06-08 00:00:[address] [facility] Tobacco Comment 2023-06-08 00:00:00 2023-06-08 00:00:[address] [facility] Exposure to SARS-CoV-2 (event) 2023-01-18 00:00:00 2023-01-28 14:47:[address] [facility] Sex assigned at 2004 00:00:00 2004 00:00:00 [facility] Smoking Status Start Date Stop Date Source Never smoked tobacco [facility] Medications Ordered Medication Name Filled Medication Name Start Date Stop Date Current Medication? Ordering Clinician Indication Dosage Frequency Signature (SIG) Comments Components Source ondansetron 4 mg disintegrat ing tablet 307 00:00: 00 Yes [id number] 4mg Take 1 tablet by mouth every 8 (eight) hours as needed for Nausea and Vomiting (N/V). [facility] aspirin tablet 325 mg 10-26 18:45: 00 10-26 18:37 :00 No 325mg 325 mg, Oral, ONCE, 1 dose, On Thu10/26/24 at 1245, STAT [facility] ondansetron 4 mg disintegrat ing tablet 10-26 00:00: 00 Yes [id number] 4mg Take 1 tablet by mouth every 8 (eight) hours as needed for Nausea and Vomiting (N/V). [facility] enoxaparin (LOVENOX) injection 30 mg 2023-08 15:00: 00 08-31 00:19 :14 No 30mg 30 mg, Subcutaneo us, DAILY, First dose (after last modificati on) on Thu08/30/24 at 0900, Until Discontinu ed, Routine [facility] KCL 20 mEq/15 mL solution 40 mEq 2023-08 14:45: 00 08-30 15:18 :00 No 40meq 40 mEq, Oral, ONCE, 1 dose, On Thu08/30/24 at 0845, Routine [facility] doxycycline hyclate (Vibramycin ) capsule 100 mg 2023-08 12:00: 00 09-04 11:59 :00 No 100mg 100 mg, Oral, Q12HA2, 10 doses, First dose on Thu08/30/24 at 0600, Last dose on Thu09/03/24 at 1800, AAKASH, Reason for Anti-Infec tive: Documented Infection, Documented Infection Site: Skin / Soft Tissue, Duration of Therapy: Other (see Comments) [facility] azithromyci n 250 mg tablet azithromyci n 250 mg tablet 2023-08 00:00: 00 Yes [id number] 250mg Take 1 tablet by mouth in the morning. [facility] doxycycline hyclate 100 mg capsule doxycycline hyclate 100 mg capsule 2023-08 00:00: 00 Yes [id number] 100mg Take 1 capsule by mouth every 12 (twelve) hours. [facility] azithromyci n (ZITHROMAX) tablet 250 mg 2023-08 21:45: 00 09-02 14:59 :00 No 250mg 250 mg, Oral, DAILY, 4 doses, First dose on Thu08/29/24 at 1545, Last dose on Thu09/01/24 at 0900, AAKASH, Reason for Anti-Infec tive: Documented Infection, Documented Infection Site: Skin / Soft Tissue, Duration of Therapy: Other (see Comments) [facility] doxycycline (VIBRAMYCIN ) 100 mg in NaCl [...] As Defined in Treatment / Therapy Plan [facility] azithromyci n (ZITHROMAX) 500 mg in NaCl [...] use approved by: KIKI BOLIVAR, ADULT ID [facility] KCL 20 mEq/15 mL solution 40 mEq 2023-08 14:30: 00 08-28 14:48 :00 No 40meq 40 mEq, Oral, ONCE, 1 dose, On Thu08/28/24 at 0830, Routine [facility] proMETHazin e (PHENERGAN) 25 mg in NS 50 mL IV piggyback (CNR) 2023-08 21:59: 55 08-31 00:19 :14 No 25mg 25 mg, IV Piggyback, at 200 mL/hr Administer over 15 Minutes, Q4HPRN, Starting on Thu08/26/24 at 1559, Until Thu08/30/24 at 1819, Routine, N/V unresponsi ve to Ondansetro n [facility] linezolid in dextrose 5% (ZYVOX) 600 mg/300 mL iv infusion 600 mg 2023-08 19:30: 00 08-28 17:40 :32 No 600mg 600 mg, IV Infusion, Q12H ABX, 14 doses, First dose on Thu08/26/24 at 1330, Last dose on Thu09/02/24 at 0130, 300 mL, Reason for Anti-Infec tive: Empiric Therapy for Suspected Infection, 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, Duration of therapy: As Defined in Treatment / Therapy Plan [facility] morpHINE injection 2 mg 2023-08 17:28: 00 08-26 17:32 :00 No 2mg 2 mg, Slow IV Push, ONCE, 1 dose, On Thu08/26/24 at 1130, Routine [facility] morpHINE injection 2 mg 2023-08 17:04: 59 08-28 18:19 :42 No 2mg 2 mg, Slow IV Push, QDAILYPRN, Starting on Thu08/26/24 at 1104, Until Thu08/28/24 at 1219, Routine, Pain (scale 7-10), LP [facility] acetaminoph en (TYLENOL) tablet 650 mg 2023-08 12:04: 18 08-31 00:19 :14 No 650mg 650 mg, Oral, Q6HPRN, Starting on Thu08/26/24 at 0604, Until Thu08/30/24 at 1819, Routine, Temp > 38 C [facility] acetaminoph en (TYLENOL) 160 mg/5 mL oral liquid 650 mg 2023-08 11:30: 00 08-26 11:27 :00 No 650mg 650 mg, Oral, ONCE, 1 dose, On Thu08/26/24 at 0530, Routine [facility] lactated ringers IV infusion 1,000 mL 2023-08 02:30: 00 08-28 13:35 :17 No 1000mL at 42 mL/hr, 1,000 mL, IV Infusion, CONTINUOUS , Starting on Thu08/25/24 at 2030, Until Thu08/28/24 at 0735, Routine [facility] acetaminoph en (OFIRMEV) IV piggyback 1,000 mg 2023-08 23:30: 00 08-25 23:03 :00 No 1000mg 1,000 mg, IV Piggyback, at 400 mL/hr Administer over 15 Minutes, ONCE, 1 dose, On Thu08/25/24 at 1730, Routine, Is the patient strict NPO and unable to tolerate oral medication s? 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, Duration of Therapy: 7 days [facility] KCL 20 mEq/15 mL solution 40 mEq 2023-08 18:30: 00 08-25 17:54 :00 No 40meq 40 mEq, Oral, ONCE, 1 dose, On Thu08/25/24 at 1230, Routine [facility] magnesium sulfate in water 4 gram/50 mL (8 %) IV Piggyback 4 g 2023-08 16:30: 00 08-25 20:00 :00 No 4g 4 g, IV Piggyback, at 25 mL/hr Administer over 120 Minutes, ONCE, 1 dose, On Darling 08/25/24 at 1030, Routine [facility] levoFLOXaci n in D5W (LEVAQUIN) 750 mg/150 [...] Therapy for Suspected Infection, Empiric 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, Duration of therapy: As Defined in Treatment / Therapy Plan [facility] ampicillin (POLYCILLIN -N) 2,000 mg in NaCl 0.9% (NS) 100 mL MINI-BAG 2023-08 15:15: 00 08-28 17:40 :32 No 2000mg 2,000 mg, IV Piggyback, Q4H ABX, 42 doses, First dose on Darling 08/25/24 at 0915, Last dose on Darling 09/01/24 at 0515, Administer over 30 Minutes, 100 mL, Reason for Anti-Infec tive: Documented Infection, Documented Infection 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, Duration of Therapy: 7 days [facility] acyclovir (ZOVIRAX) 450 mg in NaCl 0.9% (NS) 100 mL IV infusion 2023-08 15:15: 00 08-27 13:36 :20 No 10mg/kg 450 mg (rounded from 440 mg = 10 mg/kg ?44 kg), IV Infusion, Q8H ABX, 30 doses, First dose on Darling 08/25/24 at 0915, Last dose on Thu09/04/24 at 0115, 100 mL, Restricted use approved by: KIKI BOLIVAR, ADULT ID [facility] acetaminoph en (OFIRMEV) IV piggyback 1,000 mg 2023-08 15:00: 00 08-25 14:51 :00 No 1000mg 1,000 mg, IV Piggyback, at 400 mL/hr Administer over 15 Minutes, ONCE, 1 dose, On Darling 08/25/24 at 0900, Routine, Is the patient strict NPO and unable to tolerate oral medication s? 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 Yes [facility] enoxaparin (LOVENOX) injection 40 mg 2023-08 23:00: 00 08-29 18:46 :14 No 40mg 40 mg, Subcutaneo us, DAILY, First dose on Thu08/24/24 at 1700, Until Discontinu ed, Routine [facility] ondansetron (ZOFRAN (PF)) injection 4 mg 2023-08 21:19: 58 08-31 00:19 :14 No 4mg 4 mg, Slow IV Push, Q6HPRN, Nausea and Vomiting (N/V), Starting on Thu08/24/24 at 1519, Please give medication over 2-5 minutes. [facility] acetaminoph en (OFIRMEV) IV piggyback 1,000 mg 2023-08 21:19: 00 08-24 22:35 :00 No 1000mg 1,000 mg, IV Piggyback, at 400 mL/hr Administer over 15 Minutes, ONCE, 1 dose, On Thu08/24/24 at 1530, AAKASH, Is the patient strict NPO and unable to tolerate oral medication s? Yes [facility] doxycycline (VIBRAMYCIN ) 100 mg in NaCl [...] Site: Blood, Duration of therapy: 5 days [facility] cefTRIAXone (ROCEPHIN) 1,000 mg in water for injection, sterile 10 mL IV Push 2023-08 18:30: 00 08-25 14:15 :35 No 1000mg 1,000 mg, Intravenou s, Q24H ABX, 5 doses, First dose on Thu08/24/24 at 1230, Last dose on Thu08/28/24 at 1230, 10 mL, Reason for Anti-Infec tive: Empiric Therapy for Suspected Infection, Empiric Therapy Site: Blood, Duration of therapy: 72 hours [facility] lactated ringers IV infusion 1,000 mL 2023-08 17:04: 00 08-25 05:12 :00 No 1000mL at 999 mL/hr, 1,000 mL, Intravenou s, ONCE, 1 dose, On Thu08/24/24 at 1115, Routine [facility] ondansetron (ZOFRAN-ODT ) disintegrat ing tablet 4 mg 2023-08 20:00: 00 08-22 19:19 :00 No 4mg 4 mg, Oral, ONCE, 1 dose, On Thu08/22/24 at 1400, Routine [facility] acetaminoph en (TYLENOL) tablet 650 mg 2023-08 19:15: 00 08-22 19:20 :00 No 650mg 650 mg, Oral, ONCE, 1 dose, On Thu08/22/24 at 1315, AAKASH [facility] ondansetron 4 mg disintegrat ing tablet 2023-08 00:00: 00 08-24 00:00 :00 No [id number] 4mg Take 1 tablet by mouth every 8 (eight) hours as needed for Nausea and Vomiting (N/V). [facility] cetirizine (ZYRTEC) 10 mg tablet 2023-08 00:00: 00 08-24 00:00 :00 No [id number] 10mg Take 1 tablet by mouth in the morning for 30 days. [facility] fluticasone propionate 50 mcg/actuati on nasal spray 2023-08 00:00: 00 08-24 00:00 :00 No [id number] 1{spray } Use 1 [place] in each nostril in the morning for 30 days. [facility] FLUoxetine 10 mg capsule 9-10 00:00: 00 08-24 00:00 :00 No [id number] Take one capsule once at day for two weeks then increase to two tabs po once a day [facility] norgestimat e-ethinyl estradioL 0.25-35 mg-mcg per tablet 02-25 00:00: 00 08-24 00:00 :00 No [id number] 1{tbl} Take 1 tablet by mouth in the morning. [facility] traZODone 50 mg tablet 02-14 00:00: 00 08-24 00:00 :00 No [id number] 50mg Take 1 tablet by mouth at bedtime. [facility] amoxicillin -pot clavulanate 600-42.9 mg/5 mL suspension 2- 00:00: 00 02-14 00:00 :00 No [id number] Give 7.5 ml po bid for 10 days [facility] famotidine 20 mg tablet 2022-08- 00:00: 00 08-22 00:00 :00 No 20mg Take 1 tablet by mouth in the morning and 1 tablet in the evening. [facility] ondansetron 8 mg disintegrat ing tablet 2022-08 00:00: 00 08-22 00:00 :00 No [id number] 8mg Take 1 tablet by mouth every 8 (eight) hours as needed for Nausea and Vomiting (N/V). [facility] traZODone 50 mg tablet 2022-08 00:00: 00 02-14 00:00 :00 No [id number] 50mg Take 1 tablet by mouth at bedtime. [facility] azithromyci n (ZITHROMAX) 200 mg/5 mL suspension 2022-08 00:00: 00 07-22 00:00 :00 No [id number] 12.5 ml po day 1 then 6.25 ml po days 2-5 [facility] hydrOXYzine 10 mg tablet 03-30 00:00: 00 06-08 00:00 :00 No [id number] Take 1 to 2 po qhs for sleep and anxiety [facility] amoxicillin -pot clavulanate 600-42.9 mg/5 mL suspension 01-21 00:00: 00 06-08 00:00 :00 No [id number] Take 10 ml po bid for 10 days [facility] FLUOXETINE 20 mg capsule -19 00:00: 00 03-30 00:00 :00 No [id number] TAKE ONE (1) CAPSULE(S) BY MOUTH EVERY MORNING. [facility] pedi multivit no.140-iron fum (KIDS MULTIVITAMI N COMPLETE) 18 mg iron Chew -20 00:00: 00 Yes [id number] 1{tbl} Take 1 tablet by mouth in the morning. [facility] pedi multivit no.140-iron fum (KIDS MULTIVITAMI N COMPLETE) 18 mg iron Chew -20 00:00: 00 08-24 00:00 :00 No [id number] 1{tbl} Take 1 tablet by mouth in the morning. [facility] fluticasone propionate 50 mcg/actuati on nasal spray 4 00:00: 00 08-22 00:00 :00 No [id number] 1{spray } Use 1 [place] in each nostril in the morning. [facility] cetirizine 10 mg tablet 12-18 00:00: 00 03-30 00:00 :00 No [id number] 10mg Take 1 tablet by mouth in the morning. [facility] azithromyci n 250 mg tablet 12-18 00:00: 00 03-30 00:00 :00 No [id number] 250mg Take 1 tablet by mouth in the morning. [facility] FLUoxetine 20 mg capsule 12-18 00:00: 00 01-16 00:00 :00 No 20mg Take 1 capsule by mouth in the morning. [facility] ibuprofen (IBU) tablet 400 mg 12-02 20:00: 00 12-02 19:16 :00 No [id number] 400mg [facility] dextrometho rphan-guaif enesin 10-100 mg/5 mL solution 2021-08 0 00:00: 00 08-22 00:00 :00 No [id number] 10mL Take 10 mL by mouth every 6 (six) hours as needed for Cough. [facility] cetirizine 10 mg tablet 2021-08 0 00:00: 00 12-18 00:00 :00 No [id number] 10mg Take 1 tablet by mouth in the morning. [facility] fluticasone propionate 50 mcg/actuati on nasal spray 2021-08 0-17 00:00: 00 12-18 00:00 :00 No [id number] 1{spray } Use 1 [place] in each nostril in the morning. [facility] azithromyci n (ZITHROMAX Z-MILENA) 250 mg tablet 2021-08 0-17 00:00: 00 12-18 00:00 :00 No [id number] 250mg Z-Milena = 500 mg day 1, then 250 mg days 2 to 5. [facility] Immune Globulin, Human,, IGG, (HIZENTRA) 4 gram/20 mL (20 %) subcutaneou s infusion RTU 05-29 00:00: 00 08-24 00:00 :00 No [id number] 8g inject 40 mL under the skin every 2 (two) weeks. [facility] pedi multivit no.140-iron fum (KIDS MULTIVITAMI N COMPLETE) 18 mg iron Chew 05-23 00:00: 00 12-18 00:00 :00 No [id number] 1{tbl} Take 1 tablet by mouth daily. [facility] cefdinir 125 mg/5 mL suspension 05-23 00:00: 00 06-07 04:59 :00 No [id number] 250mg Take 10 mL by mouth in the morning and 10 mL in the evening. Do all this for 14 days. [facility] ibuprofen (IBU) tablet 600 mg 03-21 05:30: 00 03-21 05:18 :00 No 600mg 600 mg, Oral, ONCE, 1 dose, On Thu03/21/22 at 0030, AAKASH [facility] Immune Globulin, Human,, IGG, (HIZENTRA) 4 gram/20 mL (20 %) subcutaneou s infusion RTU 02-24 00:00: 00 05-29 00:00 :00 No [id number] 8g inject 40 mL under the skin every 2 (two) weeks. [facility] amoxicillin 400 mg/5 mL oral suspension 01-01 00:00: 00 02-24 00:00 :00 No [id number] Give 12.5 ml PO BID for 10 days [facility] benzonatate (TESSALON PERLES) 100 mg capsule 01-01 00:00: 00 02-24 00:00 :00 No [id number] 100mg Take 1 capsule by mouth every 8 (eight) hours as needed for Cough. [facility] albuterol (PROAIR HFA) 90 mcg/actuati on inhaler 11-29 00:00: 00 08-24 00:00 :00 No [id number] 2{puff} Inhale 2 Puffs every 6 (six) hours as needed for Wheezing or Shortness of Breath. [facility] fluticasone propionate 44 mcg/actuati on inhaler 11-29 00:00: 00 08-22 00:00 :00 No [id number] 2{puff} Inhale 2 Puffs 2 (two) times daily. [facility] cetirizine 10 mg tablet 11-29 00:00: 00 06-16 00:00 :00 No [id number] 10mg Take 1 tablet by mouth daily. [facility] Immunizations Ordered Immunization Name Filled Immunization Name Date Status Comments Source Influenza Virus Vaccine Quad .5 mL IM 6+ MO (FLUZONE/FLULAVAL/FL UARIX) 2021-07-01 00:00:00 Completed Influenza Virus Vaccine Quad .5 mL IM 6+ MO 2021-07-01 00:00:[address] [facility] Influenza Virus Vaccine Quad .5 mL IM 6+ MO 2021-07-01 00:00:[address] [facility] Influenza Virus Vaccine Quad .5 mL IM 6+ MO 2021-07-01 00:00:[address] [facility] Influenza Virus Vaccine Quad .5 mL IM 6+ MO 2021-07-01 00:00:[address] [facility] Influenza Virus Vaccine Quad .5 mL IM 6+ MO 2021-07-01 00:00:[address] [facility] Influenza Virus Vaccine Quad .5 mL IM 6+ MO 2021-07-01 00:00:[address] [facility] Influenza Virus Vaccine Quad .5 mL IM 6+ MO 2021-07-01 00:00:[address] [facility] Influenza Virus Vaccine Quad .5 mL IM 6+ MO 2021-07-01 00:00:[address] [facility] Influenza Virus Vaccine Quad .5 mL IM 6+ MO 2021-07-01 00:00:[address] [facility] Influenza Virus Vaccine Quad .5 mL IM 6+ MO 2021-07-01 00:00:[address] [facility] Influenza Virus Vaccine Quad .5 mL IM 6+ MO 2021-07-01 00:00:[address] [facility] Influenza Virus Vaccine Quad .5 mL IM 6+ MO 2021-07-01 00:00:[address] [facility] Influenza Virus Vaccine Quad .5 mL IM 6+ MO 2021-07-01 00:00:[address] [facility] Influenza Virus Vaccine Quad .5 mL IM 6+ MO 2021-07-01 00:00:[address] [facility] Influenza Virus Vaccine Quad .5 mL IM 6+ MO 2021-07-01 00:00:[address] [facility] Influenza Virus Vaccine Quad .5 mL IM 6+ MO 2021-07-01 00:00:[address] [facility] Influenza Virus Vaccine Quad .5 mL IM 6+ MO 2021-07-01 00:00:[address] [facility] Influenza Virus Vaccine Quad .5 mL IM 6+ MO 2021-07-01 00:00:[address] [facility] Influenza Virus Vaccine Quad .5 mL IM 6+ MO 2021-07-01 00:00:[address] [facility] Influenza Virus Vaccine Quad .5 mL IM 6+ MO 2021-07-01 00:00:[address] [facility] Influenza Virus Vaccine Quad .5 mL IM 6+ MO 2021-07-01 00:00:[address] [facility] Influenza Virus Vaccine Quad .5 mL IM 6+ MO 2021-07-01 00:00:[address] [facility] Influenza Virus Vaccine Quad .5 mL IM 6+ MO 2021-07-01 00:00:[address] [facility] Influenza Virus Vaccine Quad .5 mL IM 6+ MO 2021-07-01 00:00:[address] [facility] Influenza Virus Vaccine Quad .5 mL IM 6+ MO 2021-07-01 00:00:[address] [facility] Influenza Virus Vaccine Quad .5 mL IM 6+ MO 2021-07-01 00:00:[address] [facility] Influenza Virus Vaccine Quad .5 mL IM 6+ MO 2021-07-01 00:00:[address] [facility] Influenza Virus Vaccine Quad .5 mL IM 6+ MO 2021-07-01 00:00:[address] [facility] Influenza Virus Vaccine Quad .5 mL IM 6+ MO 2021-07-01 00:00:[address] [facility] Influenza Virus Vaccine Quad .5 mL IM 6+ MO 2021-07-01 00:00:[address] [facility] Influenza Virus Vaccine Quad .5 mL IM 6+ MO 2021-07-01 00:00:[address] [facility] Influenza Virus Vaccine Quad .5 mL IM 6+ MO 2021-07-01 00:00:[address] [facility] Influenza Virus Vaccine Quad .5 mL IM 6+ MO (FLUZONE/FLULAVAL/FL UARIX) 2021-07-01 00:00:[address] [facility] Influenza Virus Vaccine Quad .5 mL IM 6+ MO (FLUZONE/FLULAVAL/FL UARIX) 2020-11-08 00:00:[address] [facility] Influenza Virus Vaccine Quad .5 mL IM 6+ MO 2020-11-08 00:00:[address] [facility] Influenza Virus Vaccine Quad .5 mL IM 6+ MO 2020-11-08 00:00:[address] [facility] Influenza Virus Vaccine Quad .5 mL IM 6+ MO 2020-11-08 00:00:[address] [facility] Influenza Virus Vaccine Quad .5 mL IM 6+ MO 2020-11-08 00:00:[address] [facility] Influenza Virus Vaccine Quad .5 mL IM 6+ MO 2020-11-08 00:00:[address] [facility] Influenza Virus Vaccine Quad .5 mL IM 6+ MO 2020-11-08 00:00:[address] [facility] Influenza Virus Vaccine Quad .5 mL IM 6+ MO 2020-11-08 00:00:[address] [facility] Influenza Virus Vaccine Quad .5 mL IM 6+ MO 2020-11-08 00:00:[address] [facility] Influenza Virus Vaccine Quad .5 mL IM 6+ MO 2020-11-08 00:00:[address] [facility] Influenza Virus Vaccine Quad .5 mL IM 6+ MO 2020-11-08 00:00:[address] [facility] Influenza Virus Vaccine Quad .5 mL IM 6+ MO 2020-11-08 00:00:[address] [facility] Influenza Virus Vaccine Quad .5 mL IM 6+ MO 2020-11-08 00:00:[address] [facility] Influenza Virus Vaccine Quad .5 mL IM 6+ MO 2020-11-08 00:00:[address] [facility] Influenza Virus Vaccine Quad .5 mL IM 6+ MO 2020-11-08 00:00:[address] [facility] Influenza Virus Vaccine Quad .5 mL IM 6+ MO 2020-11-08 00:00:[address] [facility] Influenza Virus Vaccine Quad .5 mL IM 6+ MO 2020-11-08 00:00:[address] [facility] Influenza Virus Vaccine Quad .5 mL IM 6+ MO 2020-11-08 00:00:[address] [facility] Influenza Virus Vaccine Quad .5 mL IM 6+ MO 2020-11-08 00:00:[address] [facility] Influenza Virus Vaccine Quad .5 mL IM 6+ MO 2020-11-08 00:00:[address] [facility] Influenza Virus Vaccine Quad .5 mL IM 6+ MO 2020-11-08 00:00:[address] [facility] Influenza Virus Vaccine Quad .5 mL IM 6+ MO 2020-11-08 00:00:[address] [facility] Influenza Virus Vaccine Quad .5 mL IM 6+ MO 2020-11-08 00:00:[address] [facility] Influenza Virus Vaccine Quad .5 mL IM 6+ MO 2020-11-08 00:00:[address] [facility] Influenza Virus Vaccine Quad .5 mL IM 6+ MO 2020-11-08 00:00:[address] [facility] Influenza Virus Vaccine Quad .5 mL IM 6+ MO 2020-11-08 00:00:[address] [facility] Influenza Virus Vaccine Quad .5 mL IM 6+ MO 2020-11-08 00:00:[address] [facility] Influenza Virus Vaccine Quad .5 mL IM 6+ MO 2020-11-08 00:00:[address] [facility] Influenza Virus Vaccine Quad .5 mL IM 6+ MO 2020-11-08 00:00:[address] [facility] Influenza Virus Vaccine Quad .5 mL IM 6+ MO 2020-11-08 00:00:[address] [facility] Influenza Virus Vaccine Quad .5 mL IM 6+ MO 2020-11-08 00:00:[address] [facility] Influenza Virus Vaccine Quad .5 mL IM 6+ MO 2020-11-08 00:00:[address] [facility] Influenza Virus Vaccine Quad .5 mL IM 6+ MO 2020-11-08 00:00:[address] [facility] Influenza Virus Vaccine Quad .5 mL IM 6+ MO (FLUZONE/FLULAVAL/FL UARIX) 2020-11-08 00:00:[address] [facility] Pneumococcal Polysaccharide, PPSV23 (PNEUMOVAX) 2020-09-24 00:00:[address] [facility] TDAP 2020-09-24 00:00:00 Completed Pneumococcal Polysaccharide, PPSV23 (PNEUMOVAX) 2020-09-24 00:00:[address] [facility] TDAP 2020-09-24 00:00:[address] [facility] Pneumococcal Polysaccharide, PPSV23 (PNEUMOVAX) 2020-09-24 00:00:[address] [facility] TDAP 2020-09-24 00:00:[address] [facility] Pneumococcal Polysaccharide, PPSV23 (PNEUMOVAX) 2020-09-24 00:00:[address] [facility] TDAP 2020-09-24 00:00:[address] [facility] Pneumococcal Polysaccharide, PPSV23 (PNEUMOVAX) 2020-09-24 00:00:[address] [facility] TDAP 2020-09-24 00:00:[address] [facility] Pneumococcal Polysaccharide, PPSV23 (PNEUMOVAX) 2020-09-24 00:00:[address] [facility] TDAP 2020-09-24 00:00:[address] [facility] Pneumococcal Polysaccharide, PPSV23 (PNEUMOVAX) 2020-09-24 00:00:[address] [facility] TDAP 2020-09-24 00:00:[address] [facility] Pneumococcal Polysaccharide, PPSV23 (PNEUMOVAX) 2020-09-24 00:00:[address] [facility] TDAP 2020-09-24 00:00:[address] [facility] Pneumococcal Polysaccharide, PPSV23 (PNEUMOVAX) 2020-09-24 00:00:[address] [facility] TDAP 2020-09-24 00:00:[address] [facility] Pneumococcal Polysaccharide, PPSV23 (PNEUMOVAX) 2020-09-24 00:00:[address] [facility] TDAP 2020-09-24 00:00:[address] [facility] Pneumococcal Polysaccharide, PPSV23 (PNEUMOVAX) 2020-09-24 00:00:[address] [facility] TDAP 2020-09-24 00:00:[address] [facility] Pneumococcal Polysaccharide, PPSV23 (PNEUMOVAX) 2020-09-24 00:00:[address] [facility] TDAP 2020-09-24 00:00:[address] [facility] Pneumococcal Polysaccharide, PPSV23 (PNEUMOVAX) 2020-09-24 00:00:[address] [facility] TDAP 2020-09-24 00:00:[address] [facility] Pneumococcal Polysaccharide, PPSV23 (PNEUMOVAX) 2020-09-24 00:00:[address] [facility] TDAP 2020-09-24 00:00:[address] [facility] Pneumococcal Polysaccharide, PPSV23 (PNEUMOVAX) 2020-09-24 00:00:[address] [facility] TDAP 2020-09-24 00:00:[address] [facility] Pneumococcal Polysaccharide, PPSV23 (PNEUMOVAX) 2020-09-24 00:00:[address] [facility] TDAP 2020-09-24 00:00:[address] [facility] Pneumococcal Polysaccharide, PPSV23 (PNEUMOVAX) 2020-09-24 00:00:[address] [facility] TDAP 2020-09-24 00:00:[address] [facility] Pneumococcal Polysaccharide, PPSV23 (PNEUMOVAX) 2020-09-24 00:00:[address] [facility] TDAP 2020-09-24 00:00:[address] [facility] Pneumococcal Polysaccharide, PPSV23 (PNEUMOVAX) 2020-09-24 00:00:[address] [facility] TDAP 2020-09-24 00:00:[address] [facility] Pneumococcal Polysaccharide, PPSV23 (PNEUMOVAX) 2020-09-24 00:00:[address] [facility] TDAP 2020-09-24 00:00:[address] [facility] Pneumococcal Polysaccharide, PPSV23 (PNEUMOVAX) 2020-09-24 00:00:[address] [facility] TDAP 2020-09-24 00:00:[address] [facility] Pneumococcal Polysaccharide, PPSV23 (PNEUMOVAX) 2020-09-24 00:00:[address] [facility] TDAP 2020-09-24 00:00:[address] [facility] Pneumococcal Polysaccharide, PPSV23 (PNEUMOVAX) 2020-09-24 00:00:[address] [facility] TDAP 2020-09-24 00:00:[address] [facility] Pneumococcal Polysaccharide, PPSV23 (PNEUMOVAX) 2020-09-24 00:00:[address] [facility] TDAP 2020-09-24 00:00:[address] [facility] Pneumococcal Polysaccharide, PPSV23 (PNEUMOVAX) 2020-09-24 00:00:[address] [facility] TDAP 2020-09-24 00:00:[address] [facility] Pneumococcal Polysaccharide, PPSV23 (PNEUMOVAX) 2020-09-24 00:00:[address] [facility] TDAP 2020-09-24 00:00:[address] [facility] Pneumococcal Polysaccharide, PPSV23 (PNEUMOVAX) 2020-09-24 00:00:[address] [facility] TDAP 2020-09-24 00:00:[address] [facility] Pneumococcal Polysaccharide, PPSV23 (PNEUMOVAX) 2020-09-24 00:00:[address] [facility] TDAP 2020-09-24 00:00:[address] [facility] Pneumococcal Polysaccharide, PPSV23 (PNEUMOVAX) 2020-09-24 00:00:[address] [facility] TDAP 2020-09-24 00:00:[address] [facility] Pneumococcal Polysaccharide, PPSV23 (PNEUMOVAX) 2020-09-24 00:00:[address] [facility] TDAP 2020-09-24 00:00:[address] [facility] Pneumococcal Polysaccharide, PPSV23 (PNEUMOVAX) 2020-09-24 00:00:[address] [facility] TDAP 2020-09-24 00:00:[address] [facility] Pneumococcal Polysaccharide, PPSV23 (PNEUMOVAX) 2020-09-24 00:00:[address] [facility] TDAP 2020-09-24 00:00:[address] [facility] Pneumococcal Polysaccharide, PPSV23 (PNEUMOVAX) 2020-09-24 00:00:[address] [facility] TDAP 2020-09-24 00:00:[address] [facility] Pneumococcal Polysaccharide, PPSV23 (PNEUMOVAX) 2020-09-24 00:00:[address] [facility] TDAP 2020-09-24 00:00:[address] [facility] Meningococcal Polysaccharide (groups A, C, Y and W-135) conjugate vaccine (MCV4P) 2020-09-10 00:00:[address] [facility] Meningococcal Polysaccharide (groups A, C, Y and W-135) conjugate vaccine (MCV4P) 2020-09-10 00:00:[address] [facility] Meningococcal Polysaccharide (groups A, C, Y and W-135) conjugate vaccine (MCV4P) 2020-09-10 00:00:[address] [facility] Meningococcal Polysaccharide (groups A, C, Y and W-135) conjugate vaccine (MCV4P) 2020-09-10 00:00:[address] [facility] Meningococcal Polysaccharide (groups A, C, Y and W-135) conjugate vaccine (MCV4P) 2020-09-10 00:00:[address] [facility] Meningococcal Polysaccharide (groups A, C, Y and W-135) conjugate vaccine (MCV4P) 2020-09-10 00:00:[address] [facility] Meningococcal Polysaccharide (groups A, C, Y and W-135) conjugate vaccine (MCV4P) 2020-09-10 00:00:[address] [facility] Meningococcal Polysaccharide (groups A, C, Y and W-135) conjugate vaccine (MCV4P) 2020-09-10 00:00:[address] [facility] Meningococcal Polysaccharide (groups A, C, Y and W-135) conjugate vaccine (MCV4P) 2020-09-10 00:00:[address] [facility] Meningococcal Polysaccharide (groups A, C, Y and W-135) conjugate vaccine (MCV4P) 2020-09-10 00:00:[address] [facility] Meningococcal Polysaccharide (groups A, C, Y and W-135) conjugate vaccine (MCV4P) 2020-09-10 00:00:[address] [facility] Meningococcal Polysaccharide (groups A, C, Y and W-135) conjugate vaccine (MCV4P) 2020-09-10 00:00:[address] [facility] Meningococcal Polysaccharide (groups A, C, Y and W-135) conjugate vaccine (MCV4P) 2020-09-10 00:00:[address] [facility] Meningococcal Polysaccharide (groups A, C, Y and W-135) conjugate vaccine (MCV4P) 2020-09-10 00:00:[address] [facility] Meningococcal Polysaccharide (groups A, C, Y and W-135) conjugate vaccine (MCV4P) 2020-09-10 00:00:[address] [facility] Meningococcal Polysaccharide (groups A, C, Y and W-135) conjugate vaccine (MCV4P) 2020-09-10 00:00:[address] [facility] Meningococcal Polysaccharide (groups A, C, Y and W-135) conjugate vaccine (MCV4P) 2020-09-10 00:00:[address] [facility] Meningococcal Polysaccharide (groups A, C, Y and W-135) conjugate vaccine (MCV4P) 2020-09-10 00:00:[address] [facility] Meningococcal Polysaccharide (groups A, C, Y and W-135) conjugate vaccine (MCV4P) 2020-09-10 00:00:[address] [facility] Meningococcal Polysaccharide (groups A, C, Y and W-135) conjugate vaccine (MCV4P) 2020-09-10 00:00:[address] [facility] Meningococcal Polysaccharide (groups A, C, Y and W-135) conjugate vaccine (MCV4P) 2020-09-10 00:00:[address] [facility] Meningococcal Polysaccharide (groups A, C, Y and W-135) conjugate vaccine (MCV4P) 2020-09-10 00:00:[address] [facility] Meningococcal Polysaccharide (groups A, C, Y and W-135) conjugate vaccine (MCV4P) 2020-09-10 00:00:[address] [facility] Meningococcal Polysaccharide (groups A, C, Y and W-135) conjugate vaccine (MCV4P) 2020-09-10 00:00:[address] [facility] Meningococcal Polysaccharide (groups A, C, Y and W-135) conjugate vaccine (MCV4P) 2020-09-10 00:00:[address] [facility] Meningococcal Polysaccharide (groups A, C, Y and W-135) conjugate vaccine (MCV4P) 2020-09-10 00:00:[address] [facility] Meningococcal Polysaccharide (groups A, C, Y and W-135) conjugate vaccine (MCV4P) 2020-09-10 00:00:[address] [facility] Meningococcal Polysaccharide (groups A, C, Y and W-135) conjugate vaccine (MCV4P) 2020-09-10 00:00:[address] [facility] Meningococcal Polysaccharide (groups A, C, Y and W-135) conjugate vaccine (MCV4P) 2020-09-10 00:00:[address] [facility] Meningococcal Polysaccharide (groups A, C, Y and W-135) conjugate vaccine (MCV4P) 2020-09-10 00:00:[address] [facility] Meningococcal Polysaccharide (groups A, C, Y and W-135) conjugate vaccine (MCV4P) 2020-09-10 00:00:[address] [facility] Meningococcal Polysaccharide (groups A, C, Y and W-135) conjugate vaccine (MCV4P) 2020-09-10 00:00:[address] [facility] Meningococcal Polysaccharide (groups A, C, Y and W-135) conjugate vaccine (MCV4P) 2020-09-10 00:00:[address] [facility] Meningococcal Polysaccharide (groups A, C, Y and W-135) conjugate vaccine (MCV4P) 2020-09-10 00:00:[address] [facility] HPV9 2020-08-21 00:00:00 Completed HPV9 2020-08-21 00:00:[address] [facility] HPV9 2020-08-21 00:00:[address] [facility] HPV9 2020-08-21 00:00:[address] [facility] HPV9 2020-08-21 00:00:[address] [facility] HPV9 2020-08-21 00:00:[address] [facility] HPV9 2020-08-21 00:00:[address] [facility] HPV9 2020-08-21 00:00:[address] [facility] HPV9 2020-08-21 00:00:[address] [facility] HPV9 2020-08-21 00:00:[address] [facility] HPV9 2020-08-21 00:00:[address] [facility] HPV9 2020-08-21 00:00:[address] [facility] HPV9 2020-08-21 00:00:[address] [facility] HPV9 2020-08-21 00:00:[address] [facility] HPV9 2020-08-21 00:00:[address] [facility] HPV9 2020-08-21 00:00:[address] [facility] HPV9 2020-08-21 00:00:[address] [facility] HPV9 2020-08-21 00:00:[address] [facility] HPV9 2020-08-21 00:00:[address] [facility] HPV9 2020-08-21 00:00:[address] [facility] HPV9 2020-08-21 00:00:[address] [facility] HPV9 2020-08-21 00:00:[address] [facility] HPV9 2020-08-21 00:00:[address] [facility] HPV9 2020-08-21 00:00:[address] [facility] HPV9 2020-08-21 00:00:[address] [facility] HPV9 2020-08-21 00:00:[address] [facility] HPV9 2020-08-21 00:00:[address] [facility] HPV9 2020-08-21 00:00:[address] [facility] HPV9 2020-08-21 00:00:[address] [facility] HPV9 2020-08-21 00:00:[address] [facility] HPV9 2020-08-21 00:00:[address] [facility] HPV9 2020-08-21 00:00:[address] [facility] HPV9 2020-08-21 00:00:[address] [facility] HPV9 2020-08-21 00:00:[address] [facility] HPV9 2020-05-21 00:00:00 Completed HPV9 2020-05-21 00:00:[address] [facility] HPV9 2020-05-21 00:00:[address] [facility] HPV9 2020-05-21 00:00:[address] [facility] HPV9 2020-05-21 00:00:[address] [facility] HPV9 2020-05-21 00:00:[address] [facility] HPV9 2020-05-21 00:00:[address] [facility] HPV9 2020-05-21 00:00:[address] [facility] HPV9 2020-05-21 00:00:[address] [facility] HPV9 2020-05-21 00:00:[address] [facility] HPV9 2020-05-21 00:00:[address] [facility] HPV9 2020-05-21 00:00:[address] [facility] HPV9 2020-05-21 00:00:[address] [facility] HPV9 2020-05-21 00:00:[address] [facility] HPV9 2020-05-21 00:00:[address] [facility] HPV9 2020-05-21 00:00:[address] [facility] HPV9 2020-05-21 00:00:[address] [facility] HPV9 2020-05-21 00:00:[address] [facility] HPV9 2020-05-21 00:00:[address] [facility] HPV9 2020-05-21 00:00:[address] [facility] HPV9 2020-05-21 00:00:[address] [facility] HPV9 2020-05-21 00:00:[address] [facility] HPV9 2020-05-21 00:00:[address] [facility] HPV9 2020-05-21 00:00:[address] [facility] HPV9 2020-05-21 00:00:[address] [facility] HPV9 2020-05-21 00:00:[address] [facility] HPV9 2020-05-21 00:00:[address] [facility] HPV9 2020-05-21 00:00:[address] [facility] HPV9 2020-05-21 00:00:[address] [facility] HPV9 2020-05-21 00:00:[address] [facility] HPV9 2020-05-21 00:00:[address] [facility] HPV9 2020-05-21 00:00:[address] [facility] HPV9 2020-05-21 00:00:[address] [facility] HPV9 2020-05-21 00:00:[address] [facility] HPV9 2020-02-20 00:00:[address] [facility] HPV9 2020-02-20 00:00:[address] [facility] HPV9 2020-02-20 00:00:[address] [facility] HPV9 2020-02-20 00:00:[address] [facility] HPV9 2020-02-20 00:00:[address] [facility] HPV9 2020-02-20 00:00:[address] [facility] HPV9 2020-02-20 00:00:[address] [facility] HPV9 2020-02-20 00:00:[address] [facility] HPV9 2020-02-20 00:00:[address] [facility] HPV9 2020-02-20 00:00:[address] [facility] HPV9 2020-02-20 00:00:[address] [facility] HPV9 2020-02-20 00:00:[address] [facility] HPV9 2020-02-20 00:00:[address] [facility] HPV9 2020-02-20 00:00:[address] [facility] HPV9 2020-02-20 00:00:[address] [facility] HPV9 2020-02-20 00:00:[address] [facility] HPV9 2020-02-20 00:00:[address] [facility] HPV9 2020-02-20 00:00:[address] [facility] HPV9 2020-02-20 00:00:[address] [facility] HPV9 2020-02-20 00:00:[address] [facility] HPV9 2020-02-20 00:00:[address] [facility] HPV9 2020-02-20 00:00:[address] [facility] HPV9 2020-02-20 00:00:[address] [facility] HPV9 2020-02-20 00:00:[address] [facility] HPV9 2020-02-20 00:00:[address] [facility] HPV9 2020-02-20 00:00:[address] [facility] HPV9 2020-02-20 00:00:[address] [facility] HPV9 2020-02-20 00:00:[address] [facility] HPV9 2020-02-20 00:00:[address] [facility] HPV9 2020-02-20 00:00:[address] [facility] HPV9 2020-02-20 00:00:[address] [facility] HPV9 2020-02-20 00:00:[address] [facility] HPV9 2020-02-20 00:00:[address] [facility] HPV9 2020-02-20 00:00:[address] [facility] Influenza Virus Vaccine Quad .5 mL IM 6+ MO 2019-07-07 00:00:[address] [facility] Influenza Virus Vaccine Quad .5 mL IM 6+ MO 2019-07-07 00:00:[address] [facility] Influenza Virus Vaccine Quad .5 mL IM 6+ MO 2019-07-07 00:00:[address] [facility] Influenza Virus Vaccine Quad .5 mL IM 6+ MO 2019-07-07 00:00:[address] [facility] Influenza Virus Vaccine Quad .5 mL IM 6+ MO 2019-07-07 00:00:[address] [facility] Influenza Virus Vaccine Quad .5 mL IM 6+ MO 2019-07-07 00:00:[address] [facility] Influenza Virus Vaccine Quad .5 mL IM 6+ MO 2019-07-07 00:00:[address] [facility] Influenza Virus Vaccine Quad .5 mL IM 6+ MO 2019-07-07 00:00:[address] [facility] Influenza Virus Vaccine Quad .5 mL IM 6+ MO 2019-07-07 00:00:[address] [facility] Influenza Virus Vaccine Quad .5 mL IM 6+ MO 2019-07-07 00:00:[address] [facility] Influenza Virus Vaccine Quad .5 mL IM 6+ MO 2019-07-07 00:00:[address] [facility] Influenza Virus Vaccine Quad .5 mL IM 6+ MO 2019-07-07 00:00:[address] [facility] Influenza Virus Vaccine Quad .5 mL IM 6+ MO 2019-07-07 00:00:[address] [facility] Influenza Virus Vaccine Quad .5 mL IM 6+ MO 2019-07-07 00:00:[address] [facility] Influenza Virus Vaccine Quad .5 mL IM 6+ MO 2019-07-07 00:00:[address] [facility] Influenza Virus Vaccine Quad .5 mL IM 6+ MO 2019-07-07 00:00:[address] [facility] Influenza Virus Vaccine Quad .5 mL IM MO 2019-07-07 00:00:[address] [facility] Influenza Virus Vaccine Quad .5 mL IM 6+ MO 2019-07-07 00:00:[address] [facility] Influenza Virus Vaccine Quad .5 mL IM 6+ MO 2019-07-07 00:00:[address] [facility] Influenza Virus Vaccine Quad .5 mL IM 6+ MO 2019-07-07 00:00:[address] [facility] Influenza Virus Vaccine Quad .5 mL IM 6+ MO 2019-07-07 00:00:[address] [facility] Influenza Virus Vaccine Quad .5 mL IM 6+ MO 2019-07-07 00:00:[address] [facility] Influenza Virus Vaccine Quad .5 mL IM 6+ MO 2019-07-07 00:00:[address] [facility] Influenza Virus Vaccine Quad .5 mL IM 6+ MO 2019-07-07 00:00:[address] [facility] Influenza Virus Vaccine Quad .5 mL IM 6+ MO 2019-07-07 00:00:[address] [facility] Influenza Virus Vaccine Quad .5 mL IM 6+ MO 2019-07-07 00:00:[address] [facility] Influenza Virus Vaccine Quad .5 mL IM 6+ MO 2019-07-07 00:00:[address] [facility] Influenza Virus Vaccine Quad .5 mL IM 6+ MO 2019-07-07 00:00:[address] [facility] Influenza Virus Vaccine Quad .5 mL IM 6+ MO 2019-07-07 00:00:[address] [facility] Influenza Virus Vaccine Quad .5 mL IM 6+ MO 2019-07-07 00:00:[address] [facility] Influenza Virus Vaccine Quad .5 mL IM 6+ MO 2019-07-07 00:00:[address] [facility] Influenza Virus Vaccine Quad .5 mL IM 6+ MO 2019-07-07 00:00:[address] [facility] Influenza Virus Vaccine Quad .5 mL IM 6+ MO (FLUZONE/FLULAVAL/FL UARIX) 2019-07-07 00:00:[address] [facility] Influenza Virus Vaccine Quad .5 mL IM 6+ MO (FLUZONE/FLULAVAL/FL UARIX) 2019-07-07 00:00:[address] [facility] Meningococcal Polysaccharide (groups A, C, Y and W-135) conjugate vaccine (MCV4P) 2016-10-14 00:00:00 Completed TDAP 2016-10-14 00:00:00 Completed Meningococcal Polysaccharide (groups A, C, Y and W-135) conjugate vaccine (MCV4P) 2016-10-14 00:00:[address] [facility] TDAP 2016-10-14 00:00:[address] [facility] Meningococcal Polysaccharide (groups A, C, Y and W-135) conjugate vaccine (MCV4P) 2016-10-14 00:00:[address] [facility] TDAP 2016-10-14 00:00:[address] [facility] Meningococcal Polysaccharide (groups A, C, Y and W-135) conjugate vaccine (MCV4P) 2016-10-14 00:00:[address] [facility] TDAP 2016-10-14 00:00:[address] [facility] Meningococcal Polysaccharide (groups A, C, Y and W-135) conjugate vaccine (MCV4P) 2016-10-14 00:00:[address] [facility] TDAP 2016-10-14 00:00:[address] [facility] Meningococcal Polysaccharide (groups A, C, Y and W-135) conjugate vaccine (MCV4P) 2016-10-14 00:00:[address] [facility] TDAP 2016-10-14 00:00:[address] [facility] Meningococcal Polysaccharide (groups A, C, Y and W-135) conjugate vaccine (MCV4P) 2016-10-14 00:00:[address] [facility] TDAP 2016-10-14 00:00:[address] [facility] Meningococcal Polysaccharide (groups A, C, Y and W-135) conjugate vaccine (MCV4P) 2016-10-14 00:00:[address] [facility] TDAP 2016-10-14 00:00:[address] [facility] Meningococcal Polysaccharide (groups A, C, Y and W-135) conjugate vaccine (MCV4P) 2016-10-14 00:00:[address] [facility] TDAP 2016-10-14 00:00:[address] [facility] Meningococcal Polysaccharide (groups A, C, Y and W-135) conjugate vaccine (MCV4P) 2016-10-14 00:00:[address] [facility] TDAP 2016-10-14 00:00:[address] [facility] Meningococcal Polysaccharide (groups A, C, Y and W-135) conjugate vaccine (MCV4P) 2016-10-14 00:00:[address] [facility] TDAP 2016-10-14 00:00:[address] [facility] Meningococcal Polysaccharide (groups A, C, Y and W-135) conjugate vaccine (MCV4P) 2016-10-14 00:00:[address] [facility] TDAP 2016-10-14 00:00:[address] [facility] Meningococcal Polysaccharide (groups A, C, Y and W-135) conjugate vaccine (MCV4P) 2016-10-14 00:00:[address] [facility] TDAP 2016-10-14 00:00:[address] [facility] Meningococcal Polysaccharide (groups A, C, Y and W-135) conjugate vaccine (MCV4P) 2016-10-14 00:00:[address] [facility] TDAP 2016-10-14 00:00:[address] [facility] Meningococcal Polysaccharide (groups A, C, Y and W-135) conjugate vaccine (MCV4P) 2016-10-14 00:00:[address] [facility] TDAP 2016-10-14 00:00:[address] [facility] Meningococcal Polysaccharide (groups A, C, Y and W-135) conjugate vaccine (MCV4P) 2016-10-14 00:00:[address] [facility] TDAP 2016-10-14 00:00:[address] [facility] Meningococcal Polysaccharide (groups A, C, Y and W-135) conjugate vaccine (MCV4P) 2016-10-14 [facility] [facility] Meningococcal Polysaccharide (groups A, C, Y and W-135) conjugate vaccine (MCV4P) 2016-10-14 00:00:[address] [facility] TDAP 2016-10-14 00:00:[address] [facility] Meningococcal Polysaccharide (groups A, C, Y and W-135) conjugate vaccine (MCV4P) 2016-10-14 00:00:[address] [facility] TDAP 2016-10-14 00:00:[address] [facility] Meningococcal Polysaccharide (groups A, C, Y and W-135) conjugate vaccine (MCV4P) 2016-10-14 00:00:[address] [facility] TDAP 2016-10-14 00:00:[address] [facility] Meningococcal Polysaccharide (groups A, C, Y and W-135) conjugate vaccine (MCV4P) 2016-10-14 00:00:[address] [facility] TDAP 2016-10-14 00:00:[address] [facility] Meningococcal Polysaccharide (groups A, C, Y and W-135) conjugate vaccine (MCV4P) 2016-10-14 00:00:[address] [facility] TDAP 2016-10-14 00:00:[address] [facility] Meningococcal Polysaccharide (groups A, C, Y and W-135) conjugate vaccine (MCV4P) 2016-10-14 00:00:[address] [facility] TDAP 2016-10-14 00:00:[address] [facility] Meningococcal Polysaccharide (groups A, C, Y and W-135) conjugate vaccine (MCV4P) 2016-10-14 00:00:[address] [facility] TDAP 2016-10-14 00:00:[address] [facility] Meningococcal Polysaccharide (groups A, C, Y and W-135) conjugate vaccine (MCV4P) 2016-10-14 00:00:[address] [facility] TDAP 2016-10-14 00:00:[address] [facility] Meningococcal Polysaccharide (groups A, C, Y and W-135) conjugate vaccine (MCV4P) 2016-10-14 [facility] [facility] Meningococcal Polysaccharide (groups A, C, Y and W-135) conjugate vaccine (MCV4P) 2016-10-14 00:00:[address] [facility] TDAP 2016-10-14 00:00:[address] [facility] Meningococcal Polysaccharide (groups A, C, Y and W-135) conjugate vaccine (MCV4P) 2016-10-14 00:00:[address] [facility] TDAP 2016-10-14 00:00:[address] [facility] Meningococcal Polysaccharide (groups A, C, Y and W-135) conjugate vaccine (MCV4P) 2016-10-14 00:00:[address] [facility] TDAP 2016-10-14 00:00:[address] [facility] Meningococcal Polysaccharide (groups A, C, Y and W-135) conjugate vaccine (MCV4P) 2016-10-14 00:00:[address] [facility] TDAP 2016-10-14 00:00:[address] [facility] Meningococcal Polysaccharide (groups A, C, Y and W-135) conjugate vaccine (MCV4P) 2016-10-14 00:00:[address] [facility] TDAP 2016-10-14 00:00:[address] [facility] Meningococcal Polysaccharide (groups A, C, Y and W-135) conjugate vaccine (MCV4P) 2016-10-14 00:00:[address] [facility] TDAP 2016-10-14 00:00:[address] [facility] Meningococcal Polysaccharide (groups A, C, Y and W-135) conjugate vaccine (MCV4P) 2016-10-14 00:00:[address] [facility] TDAP 2016-10-14 00:00:[address] [facility] Meningococcal Polysaccharide (groups A, C, Y and W-135) conjugate vaccine (MCV4P) 2016-10-14 00:00:[address] [facility] TDAP 2016-10-14 00:00:[address] [facility] DTAP 2009-07-09 00:00:[address] [facility] DTAP 2009-07-09 00:00:[address] [facility] DTAP 2009-07-09 00:00:[address] [facility] DTAP 2009-07-09 00:00:[address] [facility] DTAP 2009-07-09 00:00:[address] [facility] DTAP 2009-07-09 00:00:[address] [facility] DTAP 2009-07-09 00:00:[address] [facility] DTAP 2009-07-09 00:00:[address] [facility] DTAP 2009-07-09 00:00:[address] [facility] DTAP 2009-07-09 00:00:[address] [facility] DTAP 2009-07-09 00:00:[address] [facility] DTAP 2009-07-09 00:00:[address] [facility] DTAP 2009-07-09 00:00:[address] [facility] DTAP 2009-07-09 00:00:[address] [facility] DTAP 2009-07-09 00:00:[address] [facility] DTAP 2009-07-09 00:00:[address] [facility] DTAP 2009-07-09 00:00:[address] [facility] DTAP 2009-07-09 00:00:[address] [facility] DTAP 2009-07-09 00:00:[address] [facility] DTAP 2009-07-09 00:00:[address] [facility] DTAP 2009-07-09 00:00:[address] [facility] DTAP 2009-07-09 00:00:[address] [facility] DTAP 2009-07-09 00:00:[address] [facility] DTAP 2009-07-09 00:00:[address] [facility] DTAP 2009-07-09 00:00:[address] [facility] DTAP 2009-07-09 00:00:[address] [facility] DTAP 2009-07-09 00:00:[address] [facility] DTAP 2009-07-09 00:00:[address] [facility] DTAP 2009-07-09 00:00:[address] [facility] DTAP 2009-07-09 00:00:[address] [facility] DTAP 2009-07-09 00:00:[address] [facility] DTAP 2009-07-09 00:00:[address] [facility] DTAP 2009-07-09 00:00:[address] [facility] DTAP 2009-07-09 00:00:00 Completed HEPATITIS A 2008-09-08 00:00:00 Completed MMR 2008-09-08 00:00:00 Completed Polio (IPV/OPV) 2008-09-08 00:00:00 Completed Varicella (varivax)(chicken pox) 2008-09-08 00:00:00 Completed HEPATITIS A 2008-09-08 00:00:[address] [facility] MMR 2008-09-08 00:00:[address] [facility] Polio (IPV/OPV) 2008-09-08 00:00:[address] [facility] Varicella (varivax)(chicken pox) 2008-09-08 00:00:[address] [facility] HEPATITIS A 2008-09-08 00:00:[address] [facility] MMR 2008-09-08 00:00:[address] [facility] Polio (IPV/OPV) 2008-09-08 00:00:[address] [facility] Varicella (varivax)(chicken pox) 2008-09-08 00:00:[address] [facility] HEPATITIS A 2008-09-08 00:00:[address] [facility] MMR 2008-09-08 00:00:[address] [facility] Polio (IPV/OPV) 2008-09-08 00:00:[address] [facility] Varicella (varivax)(chicken pox) 2008-09-08 00:00:[address] [facility] HEPATITIS A 2008-09-08 00:00:[address] [facility] MMR 2008-09-08 00:00:[address] [facility] Polio (IPV/OPV) 2008-09-08 00:00:[address] [facility] Varicella (varivax)(chicken pox) 2008-09-08 00:00:[address] [facility] HEPATITIS A 2008-09-08 00:00:[address] [facility] MMR 2008-09-08 00:00:[address] [facility] Polio (IPV/OPV) 2008-09-08 00:00:[address] [facility] Varicella (varivax)(chicken pox) 2008-09-08 00:00:[address] [facility] HEPATITIS A 2008-09-08 00:00:[address] [facility] MMR 2008-09-08 00:00:[address] [facility] Polio (IPV/OPV) 2008-09-08 00:00:[address] [facility] Varicella (varivax)(chicken pox) 2008-09-08 00:00:[address] [facility] HEPATITIS A 2008-09-08 00:00:[address] [facility] MMR 2008-09-08 00:00:[address] [facility] Polio (IPV/OPV) 2008-09-08 00:00:[address] [facility] Varicella (varivax)(chicken pox) 2008-09-08 00:00:[address] [facility] HEPATITIS A 2008-09-08 00:00:[address] [facility] MMR 2008-09-08 00:00:[address] [facility] Polio (IPV/OPV) 2008-09-08 00:00:[address] [facility] Varicella (varivax)(chicken pox) 2008-09-08 00:00:[address] [facility] HEPATITIS A 2008-09-08 00:00:[address] [facility] MMR 2008-09-08 00:00:[address] [facility] Polio (IPV/OPV) 2008-09-08 00:00:[address] [facility] Varicella (varivax)(chicken pox) 2008-09-08 00:00:[address] [facility] HEPATITIS A 2008-09-08 00:00:[address] [facility] MMR 2008-09-08 00:00:[address] [facility] Polio (IPV/OPV) 2008-09-08 00:00:[address] [facility] Varicella (varivax)(chicken pox) 2008-09-08 00:00:[address] [facility] HEPATITIS A 2008-09-08 00:00:[address] [facility] MMR 2008-09-08 00:00:[address] [facility] Polio (IPV/OPV) 2008-09-08 00:00:[address] [facility] Varicella (varivax)(chicken pox) 2008-09-08 00:00:[address] [facility] HEPATITIS A 2008-09-08 00:00:[address] [facility] MMR 2008-09-08 00:00:[address] [facility] Polio (IPV/OPV) 2008-09-08 00:00:[address] [facility] Varicella (varivax)(chicken pox) 2008-09-08 00:00:[address] [facility] HEPATITIS A 2008-09-08 00:00:[address] [facility] MMR 2008-09-08 00:00:[address] [facility] Polio (IPV/OPV) 2008-09-08 00:00:[address] [facility] Varicella (varivax)(chicken pox) 2008-09-08 00:00:[address] [facility] HEPATITIS A 2008-09-08 00:00:[address] [facility] MMR 2008-09-08 00:00:[address] [facility] Polio (IPV/OPV) 2008-09-08 00:00:[address] [facility] Varicella (varivax)(chicken pox) 2008-09-08 00:00:[address] [facility] HEPATITIS A 2008-09-08 00:00:[address] [facility] MMR 2008-09-08 00:00:[address] [facility] Polio (IPV/OPV) 2008-09-08 00:00:[address] [facility] Varicella (varivax)(chicken pox) 2008-09-08 00:00:[address] [facility] HEPATITIS A 2008-09-08 00:00:[address] [facility] MMR 2008-09-08 00:00:[address] [facility] Polio (IPV/OPV) 2008-09-08 00:00:[address] [facility] Varicella (varivax)(chicken pox) 2008-09-08 00:00:[address] [facility] HEPATITIS A 2008-09-08 00:00:[address] [facility] MMR 2008-09-08 00:00:[address] [facility] Polio (IPV/OPV) 2008-09-08 00:00:[address] [facility] Varicella (varivax)(chicken pox) 2008-09-08 00:00:[address] [facility] HEPATITIS A 2008-09-08 00:00:[address] [facility] MMR 2008-09-08 00:00:[address] [facility] Polio (IPV/OPV) 2008-09-08 00:00:[address] [facility] Varicella (varivax)(chicken pox) 2008-09-08 00:00:[address] [facility] HEPATITIS A 2008-09-08 00:00:[address] [facility] MMR 2008-09-08 00:00:[address] [facility] Polio (IPV/OPV) 2008-09-08 00:00:[address] [facility] Varicella (varivax)(chicken pox) 2008-09-08 00:00:[address] [facility] HEPATITIS A 2008-09-08 00:00:[address] [facility] MMR 2008-09-08 00:00:[address] [facility] Polio (IPV/OPV) 2008-09-08 00:00:[address] [facility] Varicella (varivax)(chicken pox) 2008-09-08 00:00:[address] [facility] HEPATITIS A 2008-09-08 00:00:[address] [facility] MMR 2008-09-08 00:00:[address] [facility] Polio (IPV/OPV) 2008-09-08 00:00:[address] [facility] Varicella (varivax)(chicken pox) 2008-09-08 00:00:[address] [facility] HEPATITIS A 2008-09-08 00:00:[address] [facility] MMR 2008-09-08 00:00:[address] [facility] Polio (IPV/OPV) 2008-09-08 00:00:[address] [facility] Varicella (varivax)(chicken pox) 2008-09-08 00:00:[address] [facility] HEPATITIS A 2008-09-08 00:00:[address] [facility] MMR 2008-09-08 00:00:[address] [facility] Polio (IPV/OPV) 2008-09-08 00:00:[address] [facility] Varicella (varivax)(chicken pox) 2008-09-08 00:00:[address] [facility] HEPATITIS A 2008-09-08 00:00:[address] [facility] MMR 2008-09-08 00:00:[address] [facility] Polio (IPV/OPV) 2008-09-08 00:00:[address] [facility] Varicella (varivax)(chicken pox) 2008-09-08 00:00:[address] [facility] HEPATITIS A 2008-09-08 00:00:[address] [facility] MMR 2008-09-08 00:00:[address] [facility] Polio (IPV/OPV) 2008-09-08 00:00:[address] [facility] Varicella (varivax)(chicken pox) 2008-09-08 00:00:[address] [facility] HEPATITIS A 2008-09-08 00:00:[address] [facility] MMR 2008-09-08 00:00:[address] [facility] Polio (IPV/OPV) 2008-09-08 00:00:[address] [facility] Varicella (varivax)(chicken pox) 2008-09-08 00:00:[address] [facility] HEPATITIS A 2008-09-08 00:00:[address] [facility] MMR 2008-09-08 00:00:[address] [facility] Polio (IPV/OPV) 2008-09-08 00:00:[address] [facility] Varicella (varivax)(chicken pox) 2008-09-08 00:00:[address] [facility] HEPATITIS A 2008-09-08 00:00:[address] [facility] MMR 2008-09-08 00:00:[address] [facility] Polio (IPV/OPV) 2008-09-08 00:00:[address] [facility] Varicella (varivax)(chicken pox) 2008-09-08 00:00:[address] [facility] HEPATITIS A 2008-09-08 00:00:[address] [facility] MMR 2008-09-08 00:00:[address] [facility] Polio (IPV/OPV) 2008-09-08 00:00:[address] [facility] Varicella (varivax)(chicken pox) 2008-09-08 00:00:[address] [facility] HEPATITIS A 2008-09-08 00:00:[address] [facility] MMR 2008-09-08 00:00:[address] [facility] Polio (IPV/OPV) 2008-09-08 00:00:[address] [facility] Varicella (varivax)(chicken pox) 2008-09-08 00:00:[address] [facility] HEPATITIS A 2008-09-08 00:00:[address] [facility] MMR 2008-09-08 00:00:[address] [facility] Polio (IPV/OPV) 2008-09-08 00:00:[address] [facility] Varicella (varivax)(chicken pox) 2008-09-08 00:00:[address] [facility] HEPATITIS A 2008-09-08 00:00:[address] [facility] MMR 2008-09-08 00:00:[address] [facility] Polio (IPV/OPV) 2008-09-08 00:00:[address] [facility] Varicella (varivax)(chicken pox) 2008-09-08 00:00:[address] [facility] HEPATITIS A 2008-09-08 00:00:[address] [facility] MMR 2008-09-08 00:00:[address] [facility] Polio (IPV/OPV) 2008-09-08 00:00:[address] [facility] Varicella (varivax)(chicken pox) 2008-09-08 00:00:[address] [facility] HIB 4 Dose Schedule 2006-07-01 00:00:00 Completed HEPATITIS A 2006-07-01 00:00:00 Completed DTAP 2006-07-01 00:00:[address] [facility] HIB 4 Dose Schedule 2006-07-01 00:00:[address] [facility] HEPATITIS A 2006-07-01 00:00:[address] [facility] DTAP 2006-07-01 00:00:[address] [facility] HIB 4 Dose Schedule 2006-07-01 00:00:[address] [facility] HEPATITIS A 2006-07-01 00:00:[address] [facility] DTAP 2006-07-01 00:00:[address] [facility] HIB 4 Dose Schedule 2006-07-01 00:00:[address] [facility] HEPATITIS A 2006-07-01 00:00:[address] [facility] DTAP 2006-07-01 00:00:[address] [facility] HIB 4 Dose Schedule 2006-07-01 00:00:[address] [facility] HEPATITIS A 2006-07-01 00:00:[address] [facility] DTAP 2006-07-01 00:00:[address] [facility] HIB 4 Dose Schedule 2006-07-01 00:00:[address] [facility] HEPATITIS A 2006-07-01 00:00:[address] [facility] DTAP 2006-07-01 00:00:[address] [facility] HIB 4 Dose Schedule 2006-07-01 00:00:[address] [facility] HEPATITIS A 2006-07-01 00:00:[address] [facility] DTAP 2006-07-01 00:00:[address] [facility] HIB 4 Dose Schedule 2006-07-01 00:00:[address] [facility] HEPATITIS A 2006-07-01 00:00:[address] [facility] DTAP 2006-07-01 00:00:[address] [facility] HIB 4 Dose Schedule 2006-07-01 00:00:[address] [facility] HEPATITIS A 2006-07-01 00:00:[address] [facility] DTAP 2006-07-01 00:00:[address] [facility] HIB 4 Dose Schedule 2006-07-01 00:00:[address] [facility] HEPATITIS A 2006-07-01 00:00:[address] [facility] DTAP 2006-07-01 00:00:[address] [facility] HIB 4 Dose Schedule 2006-07-01 00:00:[address] [facility] HEPATITIS A 2006-07-01 00:00:[address] [facility] DTAP 2006-07-01 00:00:[address] [facility] HIB 4 Dose Schedule 2006-07-01 00:00:[address] [facility] HEPATITIS A 2006-07-01 00:00:[address] [facility] DTAP 2006-07-01 00:00:[address] [facility] HIB 4 Dose Schedule 2006-07-01 00:00:[address] [facility] HEPATITIS A 2006-07-01 00:00:[address] [facility] DTAP 2006-07-01 00:00:[address] [facility] HIB 4 Dose Schedule 2006-07-01 00:00:[address] [facility] HEPATITIS A 2006-07-01 00:00:[address] [facility] DTAP 2006-07-01 00:00:[address] [facility] HIB 4 Dose Schedule 2006-07-01 00:00:[address] [facility] HEPATITIS A 2006-07-01 00:00:[address] [facility] DTAP 2006-07-01 00:00:[address] [facility] HIB 4 Dose Schedule 2006-07-01 00:00:[address] [facility] HEPATITIS A 2006-07-01 00:00:[address] [facility] DTAP 2006-07-01 00:00:[address] [facility] HIB 4 Dose Schedule 2006-07-01 00:00:[address] [facility] HEPATITIS A 2006-07-01 00:00:[address] [facility] DTAP 2006-07-01 00:00:[address] [facility] HIB 4 Dose Schedule 2006-07-01 00:00:[address] [facility] HEPATITIS A 2006-07-01 00:00:[address] [facility] DTAP 2006-07-01 00:00:[address] [facility] HIB 4 Dose Schedule 2006-07-01 00:00:[address] [facility] HEPATITIS A 2006-07-01 00:00:[address] [facility] DTAP 2006-07-01 00:00:[address] [facility] HIB 4 Dose Schedule 2006-07-01 00:00:[address] [facility] HEPATITIS A 2006-07-01 00:00:[address] [facility] DTAP 2006-07-01 00:00:[address] [facility] HIB 4 Dose Schedule 2006-07-01 00:00:[address] [facility] HEPATITIS A 2006-07-01 00:00:[address] [facility] DTAP 2006-07-01 00:00:[address] [facility] HIB 4 Dose Schedule 2006-07-01 00:00:[address] [facility] HEPATITIS A 2006-07-01 00:00:[address] [facility] DTAP 2006-07-01 00:00:[address] [facility] HIB 4 Dose Schedule 2006-07-01 00:00:[address] [facility] HEPATITIS A 2006-07-01 00:00:[address] [facility] DTAP 2006-07-01 00:00:[address] [facility] HIB 4 Dose Schedule 2006-07-01 00:00:[address] [facility] HEPATITIS A 2006-07-01 00:00:[address] [facility] DTAP 2006-07-01 00:00:[address] [facility] HIB 4 Dose Schedule 2006-07-01 00:00:[address] [facility] HEPATITIS A 2006-07-01 00:00:[address] [facility] DTAP 2006-07-01 00:00:[address] [facility] HIB 4 Dose Schedule 2006-07-01 00:00:[address] [facility] HEPATITIS A 2006-07-01 00:00:[address] [facility] DTAP 2006-07-01 00:00:[address] [facility] HIB 4 Dose Schedule 2006-07-01 00:00:[address] [facility] HEPATITIS A 2006-07-01 00:00:[address] [facility] DTAP 2006-07-01 00:00:[address] [facility] HIB 4 Dose Schedule 2006-07-01 00:00:[address] [facility] HEPATITIS A 2006-07-01 00:00:[address] [facility] DTAP 2006-07-01 00:00:[address] [facility] HIB 4 Dose Schedule 2006-07-01 00:00:[address] [facility] HEPATITIS A 2006-07-01 00:00:[address] [facility] DTAP 2006-07-01 00:00:[address] [facility] HIB 4 Dose Schedule 2006-07-01 00:00:[address] [facility] HEPATITIS A 2006-07-01 00:00:[address] [facility] DTAP 2006-07-01 00:00:[address] [facility] HIB 4 Dose Schedule 2006-07-01 00:00:[address] [facility] HEPATITIS A 2006-07-01 00:00:[address] [facility] DTAP 2006-07-01 00:00:[address] [facility] HIB 4 Dose Schedule 2006-07-01 00:00:[address] [facility] HEPATITIS A 2006-07-01 00:00:[address] [facility] DTAP 2006-07-01 00:00:[address] [facility] HIB 4 Dose Schedule 2006-07-01 00:00:[address] [facility] HEPATITIS A 2006-07-01 00:00:[address] [facility] DTAP 2006-07-01 00:00:[address] [facility] HIB 4 Dose Schedule 2006-07-01 00:00:[address] [facility] HEPATITIS A 2006-07-01 00:00:[address] [facility] DTAP 2006-07-01 00:00:00 Completed [facility] 2005-11-19 00:00:00 Completed Pneumococcal 13 Conjugate, PCV13 (Prevnar 13) 2005-11-19 00:00:00 Completed [facility] 2005-11-19 00:00:[address] [facility] Pneumococcal 13 Conjugate, PCV13 (Prevnar 13) 2005-11-19 00:00:[address] [facility] MMR 2005-11-19 00:00:[address] [facility] Pneumococcal 13 Conjugate, PCV13 (Prevnar 13) 2005-11-19 00:00:00 Completed [facility] 2005-11-19 00:00:[address] [facility] Pneumococcal 13 Conjugate, PCV13 (Prevnar 13) 2005-11-19 00:00:00 Completed [facility] 2005-11-19 00:00:[address] [facility] Pneumococcal 13 Conjugate, PCV13 (Prevnar 13) 2005-11-19 00:00:00 Completed [facility] 2005-11-19 00:00:[address] [facility] Pneumococcal 13 Conjugate, PCV13 (Prevnar 13) 2005-11-19 00:00:00 Completed [facility] 2005-11-19 00:00:[address] [facility] Pneumococcal 13 Conjugate, PCV13 (Prevnar 13) 2005-11-19 00:00:00 Completed [facility] 2005-11-19 00:00:[address] [facility] Pneumococcal 13 Conjugate, PCV13 (Prevnar 13) 2005-11-19 00:00:[address] [facility] MMR 2005-11-19 00:00:[address] [facility] Pneumococcal 13 Conjugate, PCV13 (Prevnar 13) 2005-11-19 00:00:00 Completed [facility] 2005-11-19 00:00:[address] [facility] Pneumococcal 13 Conjugate, PCV13 (Prevnar 13) 2005-11-19 00:00:[address] [facility] MMR 2005-11-19 00:00:[address] [facility] Pneumococcal 13 Conjugate, PCV13 (Prevnar 13) 2005-11-19 00:00:00 Completed [facility] 2005-11-19 00:00:[address] [facility] Pneumococcal 13 Conjugate, PCV13 (Prevnar 13) 2005-11-19 00:00:00 Completed [facility] 2005-11-19 00:00:[address] [facility] Pneumococcal 13 Conjugate, PCV13 (Prevnar 13) 2005-11-19 00:00:00 Completed [facility] 2005-11-19 00:00:[address] [facility] Pneumococcal 13 Conjugate, PCV13 (Prevnar 13) 2005-11-19 00:00:00 Completed [facility] 2005-11-19 00:00:[address] [facility] Pneumococcal 13 Conjugate, PCV13 (Prevnar 13) 2005-11-19 00:00:00 Completed [facility] 2005-11-19 00:00:[address] [facility] Pneumococcal 13 Conjugate, PCV13 (Prevnar 13) 2005-11-19 00:00:00 Completed [facility] 2005-11-19 00:00:[address] [facility] Pneumococcal 13 Conjugate, PCV13 (Prevnar 13) 2005-11-19 00:00:00 Completed [facility] 2005-11-19 00:00:[address] [facility] Pneumococcal 13 Conjugate, PCV13 (Prevnar 13) 2005-11-19 00:00:00 Completed [facility] 2005-11-19 00:00:[address] [facility] Pneumococcal 13 Conjugate, PCV13 (Prevnar 13) 2005-11-19 00:00:00 Completed [facility] 2005-11-19 00:00:[address] [facility] Pneumococcal 13 Conjugate, PCV13 (Prevnar 13) 2005-11-19 00:00:00 Completed [facility] 2005-11-19 00:00:[address] [facility] Pneumococcal 13 Conjugate, PCV13 (Prevnar 13) 2005-11-19 00:00:00 Completed [facility] 2005-11-19 00:00:[address] [facility] Pneumococcal 13 Conjugate, PCV13 (Prevnar 13) 2005-11-19 00:00:00 Completed [facility] 2005-11-19 00:00:[address] [facility] Pneumococcal 13 Conjugate, PCV13 (Prevnar 13) 2005-11-19 00:00:00 Completed [facility] 2005-11-19 00:00:[address] [facility] Pneumococcal 13 Conjugate, PCV13 (Prevnar 13) 2005-11-19 00:00:00 Completed [facility] 2005-11-19 00:00:[address] [facility] Pneumococcal 13 Conjugate, PCV13 (Prevnar 13) 2005-11-19 00:00:00 Completed [facility] 2005-11-19 00:00:[address] [facility] Pneumococcal 13 Conjugate, PCV13 (Prevnar 13) 2005-11-19 00:00:00 Completed [facility] 2005-11-19 00:00:[address] [facility] Pneumococcal 13 Conjugate, PCV13 (Prevnar 13) 2005-11-19 00:00:00 Completed [facility] 2005-11-19 00:00:[address] [facility] Pneumococcal 13 Conjugate, PCV13 (Prevnar 13) 2005-11-19 00:00:00 Completed [facility] 2005-11-19 00:00:[address] [facility] Pneumococcal 13 Conjugate, PCV13 (Prevnar 13) 2005-11-19 00:00:00 Completed [facility] 2005-11-19 00:00:[address] [facility] Pneumococcal 13 Conjugate, PCV13 (Prevnar 13) 2005-11-19 00:00:00 Completed [facility] 2005-11-19 00:00:[address] [facility] Pneumococcal 13 Conjugate, PCV13 (Prevnar 13) 2005-11-19 00:00:00 Completed [facility] 2005-11-19 00:00:[address] [facility] Pneumococcal 13 Conjugate, PCV13 (Prevnar 13) 2005-11-19 00:00:00 Completed [facility] 2005-11-19 00:00:[address] [facility] Pneumococcal 13 Conjugate, PCV13 (Prevnar 13) 2005-11-19 00:00:00 Completed [facility] 2005-11-19 00:00:[address] [facility] Pneumococcal 13 Conjugate, PCV13 (Prevnar 13) 2005-11-19 00:00:[address] [facility] Varicella (varivax)(chicken pox) 2005-08-20 00:00:00 Completed Varicella (varivax)(chicken pox) 2005-08-20 00:00:[address] [facility] Varicella (varivax)(chicken pox) 2005-08-20 00:00:[address] [facility] Varicella (varivax)(chicken pox) 2005-08-20 00:00:[address] [facility] Varicella (varivax)(chicken pox) 2005-08-20 00:00:[address] [facility] Varicella (varivax)(chicken pox) 2005-08-20 00:00:[address] [facility] Varicella (varivax)(chicken pox) 2005-08-20 00:00:[address] [facility] Varicella (varivax)(chicken pox) 2005-08-20 00:00:[address] [facility] Varicella (varivax)(chicken pox) 2005-08-20 00:00:[address] [facility] Varicella (varivax)(chicken pox) 2005-08-20 00:00:[address] [facility] Varicella (varivax)(chicken pox) 2005-08-20 00:00:[address] [facility] Varicella (varivax)(chicken pox) 2005-08-20 00:00:[address] [facility] Varicella (varivax)(chicken pox) 2005-08-20 00:00:[address] [facility] Varicella (varivax)(chicken pox) 2005-08-20 00:00:[address] [facility] Varicella (varivax)(chicken pox) 2005-08-20 00:00:[address] [facility] Varicella (varivax)(chicken pox) 2005-08-20 00:00:[address] [facility] Varicella (varivax)(chicken pox) 2005-08-20 00:00:[address] [facility] Varicella (varivax)(chicken pox) 2005-08-20 00:00:[address] [facility] Varicella (varivax)(chicken pox) 2005-08-20 00:00:[address] [facility] Varicella (varivax)(chicken pox) 2005-08-20 00:00:[address] [facility] Varicella (varivax)(chicken pox) 2005-08-20 00:00:[address] [facility] Varicella (varivax)(chicken pox) 2005-08-20 00:00:[address] [facility] Varicella (varivax)(chicken pox) 2005-08-20 00:00:[address] [facility] Varicella (varivax)(chicken pox) 2005-08-20 00:00:[address] [facility] Varicella (varivax)(chicken pox) 2005-08-20 00:00:[address] [facility] Varicella (varivax)(chicken pox) 2005-08-20 00:00:[address] [facility] Varicella (varivax)(chicken pox) 2005-08-20 00:00:[address] [facility] Varicella (varivax)(chicken pox) 2005-08-20 00:00:[address] [facility] Varicella (varivax)(chicken pox) 2005-08-20 00:00:[address] [facility] Varicella (varivax)(chicken pox) 2005-08-20 00:00:[address] [facility] Varicella (varivax)(chicken pox) 2005-08-20 00:00:[address] [facility] Varicella (varivax)(chicken pox) 2005-08-20 00:00:[address] [facility] Varicella (varivax)(chicken pox) 2005-08-20 00:00:[address] [facility] Varicella (varivax)(chicken pox) 2005-08-20 00:00:[address] [facility] HIB 4 Dose Schedule 2005-02-27 00:00:00 Completed Hep B, Adol or Pedi Dosage 2005-02-27 00:00:00 Completed Pneumococcal 13 Conjugate, PCV13 (Prevnar 13) 2005-02-27 00:00:00 Completed Polio (IPV/OPV) 2005-02-27 00:00:00 Completed DTAP 2005-02-27 00:00:[address] [facility] HIB 4 Dose Schedule 2005-02-27 00:00:[address] [facility] Hep B, Adol or Pedi Dosage 2005-02-27 00:00:[address] [facility] Pneumococcal 13 Conjugate, PCV13 (Prevnar 13) 2005-02-27 00:00:[address] [facility] Polio (IPV/OPV) 2005-02-27 00:00:[address] [facility] DTAP 2005-02-27 00:00:[address] [facility] HIB 4 Dose Schedule 2005-02-27 00:00:[address] [facility] Hep B, Adol or Pedi Dosage 2005-02-27 00:00:[address] [facility] Pneumococcal 13 Conjugate, PCV13 (Prevnar 13) 2005-02-27 00:00:[address] [facility] Polio (IPV/OPV) 2005-02-27 00:00:[address] [facility] DTAP 2005-02-27 00:00:[address] [facility] HIB 4 Dose Schedule 2005-02-27 00:00:[address] [facility] Hep B, Adol or Pedi Dosage 2005-02-27 00:00:[address] [facility] Pneumococcal 13 Conjugate, PCV13 (Prevnar 13) 2005-02-27 00:00:[address] [facility] Polio (IPV/OPV) 2005-02-27 00:00:[address] [facility] DTAP 2005-02-27 00:00:[address] [facility] HIB 4 Dose Schedule 2005-02-27 00:00:[address] [facility] Hep B, Adol or Pedi Dosage 2005-02-27 00:00:[address] [facility] Pneumococcal 13 Conjugate, PCV13 (Prevnar 13) 2005-02-27 00:00:[address] [facility] Polio (IPV/OPV) 2005-02-27 00:00:[address] [facility] DTAP 2005-02-27 00:00:[address] [facility] HIB 4 Dose Schedule 2005-02-27 00:00:[address] [facility] Hep B, Adol or Pedi Dosage 2005-02-27 00:00:[address] [facility] Pneumococcal 13 Conjugate, PCV13 (Prevnar 13) 2005-02-27 00:00:[address] [facility] Polio (IPV/OPV) 2005-02-27 00:00:[address] [facility] DTAP 2005-02-27 00:00:[address] [facility] HIB 4 Dose Schedule 2005-02-27 00:00:[address] [facility] Hep B, Adol or Pedi Dosage 2005-02-27 00:00:[address] [facility] Pneumococcal 13 Conjugate, PCV13 (Prevnar 13) 2005-02-27 00:00:[address] [facility] Polio (IPV/OPV) 2005-02-27 00:00:[address] [facility] DTAP 2005-02-27 00:00:[address] [facility] HIB 4 Dose Schedule 2005-02-27 00:00:[address] [facility] Hep B, Adol or Pedi Dosage 2005-02-27 00:00:[address] [facility] Pneumococcal 13 Conjugate, PCV13 (Prevnar 13) 2005-02-27 00:00:[address] [facility] Polio (IPV/OPV) 2005-02-27 00:00:[address] [facility] DTAP 2005-02-27 00:00:[address] [facility] HIB 4 Dose Schedule 2005-02-27 00:00:[address] [facility] Hep B, Adol or Pedi Dosage 2005-02-27 00:00:[address] [facility] Pneumococcal 13 Conjugate, PCV13 (Prevnar 13) 2005-02-27 00:00:[address] [facility] Polio (IPV/OPV) 2005-02-27 00:00:[address] [facility] DTAP 2005-02-27 00:00:[address] [facility] HIB 4 Dose Schedule 2005-02-27 00:00:[address] [facility] Hep B, Adol or Pedi Dosage 2005-02-27 00:00:[address] [facility] Pneumococcal 13 Conjugate, PCV13 (Prevnar 13) 2005-02-27 00:00:[address] [facility] Polio (IPV/OPV) 2005-02-27 00:00:[address] [facility] DTAP 2005-02-27 00:00:[address] [facility] HIB 4 Dose Schedule 2005-02-27 00:00:[address] [facility] Hep B, Adol or Pedi Dosage 2005-02-27 00:00:[address] [facility] Pneumococcal 13 Conjugate, PCV13 (Prevnar 13) 2005-02-27 00:00:[address] [facility] Polio (IPV/OPV) 2005-02-27 00:00:[address] [facility] DTAP 2005-02-27 00:00:[address] [facility] HIB 4 Dose Schedule 2005-02-27 00:00:[address] [facility] Hep B, Adol or Pedi Dosage 2005-02-27 00:00:[address] [facility] Pneumococcal 13 Conjugate, PCV13 (Prevnar 13) 2005-02-27 00:00:[address] [facility] Polio (IPV/OPV) 2005-02-27 00:00:[address] [facility] DTAP 2005-02-27 00:00:[address] [facility] HIB 4 Dose Schedule 2005-02-27 00:00:[address] [facility] Hep B, Adol or Pedi Dosage 2005-02-27 00:00:[address] [facility] Pneumococcal 13 Conjugate, PCV13 (Prevnar 13) 2005-02-27 00:00:[address] [facility] Polio (IPV/OPV) 2005-02-27 00:00:[address] [facility] DTAP 2005-02-27 00:00:[address] [facility] HIB 4 Dose Schedule 2005-02-27 00:00:[address] [facility] Hep B, Adol or Pedi Dosage 2005-02-27 00:00:[address] [facility] Pneumococcal 13 Conjugate, PCV13 (Prevnar 13) 2005-02-27 00:00:[address] [facility] Polio (IPV/OPV) 2005-02-27 00:00:[address] [facility] DTAP 2005-02-27 00:00:[address] [facility] HIB 4 Dose Schedule 2005-02-27 00:00:[address] [facility] Hep B, Adol or Pedi Dosage 2005-02-27 00:00:[address] [facility] Pneumococcal 13 Conjugate, PCV13 (Prevnar 13) 2005-02-27 00:00:[address] [facility] Polio (IPV/OPV) 2005-02-27 00:00:[address] [facility] DTAP 2005-02-27 00:00:[address] [facility] HIB 4 Dose Schedule 2005-02-27 00:00:[address] [facility] Hep B, Adol or Pedi Dosage 2005-02-27 00:00:[address] [facility] Pneumococcal 13 Conjugate, PCV13 (Prevnar 13) 2005-02-27 00:00:[address] [facility] Polio (IPV/OPV) 2005-02-27 00:00:[address] [facility] DTAP 2005-02-27 00:00:[address] [facility] HIB 4 Dose Schedule 2005-02-27 00:00:[address] [facility] Hep B, Adol or Pedi Dosage 2005-02-27 00:00:[address] [facility] Pneumococcal 13 Conjugate, PCV13 (Prevnar 13) 2005-02-27 00:00:[address] [facility] Polio (IPV/OPV) 2005-02-27 00:00:[address] [facility] DTAP 2005-02-27 00:00:[address] [facility] HIB 4 Dose Schedule 2005-02-27 00:00:[address] [facility] Hep B, Adol or Pedi Dosage 2005-02-27 00:00:[address] [facility] Pneumococcal 13 Conjugate, PCV13 (Prevnar 13) 2005-02-27 00:00:[address] [facility] Polio (IPV/OPV) 2005-02-27 00:00:[address] [facility] DTAP 2005-02-27 00:00:[address] [facility] HIB 4 Dose Schedule 2005-02-27 00:00:[address] [facility] Hep B, Adol or Pedi Dosage 2005-02-27 00:00:[address] [facility] Pneumococcal 13 Conjugate, PCV13 (Prevnar 13) 2005-02-27 00:00:[address] [facility] Polio (IPV/OPV) 2005-02-27 00:00:[address] [facility] DTAP 2005-02-27 00:00:[address] [facility] HIB 4 Dose Schedule 2005-02-27 00:00:[address] [facility] Hep B, Adol or Pedi Dosage 2005-02-27 00:00:[address] [facility] Pneumococcal 13 Conjugate, PCV13 (Prevnar 13) 2005-02-27 00:00:[address] [facility] Polio (IPV/OPV) 2005-02-27 00:00:[address] [facility] DTAP 2005-02-27 00:00:[address] [facility] HIB 4 Dose Schedule 2005-02-27 00:00:[address] [facility] Hep B, Adol or Pedi Dosage 2005-02-27 00:00:[address] [facility] Pneumococcal 13 Conjugate, PCV13 (Prevnar 13) 2005-02-27 00:00:[address] [facility] Polio (IPV/OPV) 2005-02-27 00:00:[address] [facility] DTAP 2005-02-27 00:00:[address] [facility] HIB 4 Dose Schedule 2005-02-27 00:00:[address] [facility] Hep B, Adol or Pedi Dosage 2005-02-27 00:00:[address] [facility] Pneumococcal 13 Conjugate, PCV13 (Prevnar 13) 2005-02-27 00:00:[address] [facility] Polio (IPV/OPV) 2005-02-27 00:00:[address] [facility] DTAP 2005-02-27 00:00:[address] [facility] HIB 4 Dose Schedule 2005-02-27 00:00:[address] [facility] Hep B, Adol or Pedi Dosage 2005-02-27 00:00:[address] [facility] Pneumococcal 13 Conjugate, PCV13 (Prevnar 13) 2005-02-27 00:00:[address] [facility] Polio (IPV/OPV) 2005-02-27 00:00:[address] [facility] DTAP 2005-02-27 00:00:[address] [facility] HIB 4 Dose Schedule 2005-02-27 00:00:[address] [facility] Hep B, Adol or Pedi Dosage 2005-02-27 00:00:[address] [facility] Pneumococcal 13 Conjugate, PCV13 (Prevnar 13) 2005-02-27 00:00:[address] [facility] Polio (IPV/OPV) 2005-02-27 00:00:[address] [facility] DTAP 2005-02-27 00:00:[address] [facility] HIB 4 Dose Schedule 2005-02-27 00:00:[address] [facility] Hep B, Adol or Pedi Dosage 2005-02-27 00:00:[address] [facility] Pneumococcal 13 Conjugate, PCV13 (Prevnar 13) 2005-02-27 00:00:[address] [facility] Polio (IPV/OPV) 2005-02-27 00:00:[address] [facility] DTAP 2005-02-27 00:00:[address] [facility] HIB 4 Dose Schedule 2005-02-27 00:00:[address] [facility] Hep B, Adol or Pedi Dosage 2005-02-27 00:00:[address] [facility] Pneumococcal 13 Conjugate, PCV13 (Prevnar 13) 2005-02-27 00:00:[address] [facility] Polio (IPV/OPV) 2005-02-27 00:00:[address] [facility] DTAP 2005-02-27 00:00:[address] [facility] HIB 4 Dose Schedule 2005-02-27 00:00:[address] [facility] Hep B, Adol or Pedi Dosage 2005-02-27 00:00:[address] [facility] Pneumococcal 13 Conjugate, PCV13 (Prevnar 13) 2005-02-27 00:00:[address] [facility] Polio (IPV/OPV) 2005-02-27 00:00:[address] [facility] DTAP 2005-02-27 00:00:[address] [facility] HIB 4 Dose Schedule 2005-02-27 00:00:[address] [facility] Hep B, Adol or Pedi Dosage 2005-02-27 00:00:[address] [facility] Pneumococcal 13 Conjugate, PCV13 (Prevnar 13) 2005-02-27 00:00:[address] [facility] Polio (IPV/OPV) 2005-02-27 00:00:[address] [facility] DTAP 2005-02-27 00:00:[address] [facility] HIB 4 Dose Schedule 2005-02-27 00:00:[address] [facility] Hep B, Adol or Pedi Dosage 2005-02-27 00:00:[address] [facility] Pneumococcal 13 Conjugate, PCV13 (Prevnar 13) 2005-02-27 00:00:[address] [facility] Polio (IPV/OPV) 2005-02-27 00:00:[address] [facility] DTAP 2005-02-27 00:00:[address] [facility] HIB 4 Dose Schedule 2005-02-27 00:00:[address] [facility] Hep B, Adol or Pedi Dosage 2005-02-27 00:00:[address] [facility] Pneumococcal 13 Conjugate, PCV13 (Prevnar 13) 2005-02-27 00:00:[address] [facility] Polio (IPV/OPV) 2005-02-27 00:00:[address] [facility] DTAP 2005-02-27 00:00:[address] [facility] HIB 4 Dose Schedule 2005-02-27 00:00:[address] [facility] Hep B, Adol or Pedi Dosage 2005-02-27 00:00:[address] [facility] Pneumococcal 13 Conjugate, PCV13 (Prevnar 13) 2005-02-27 00:00:[address] [facility] Polio (IPV/OPV) 2005-02-27 00:00:[address] [facility] DTAP 2005-02-27 00:00:[address] [facility] HIB 4 Dose Schedule 2005-02-27 00:00:[address] [facility] Hep B, Adol or Pedi Dosage 2005-02-27 00:00:[address] [facility] Pneumococcal 13 Conjugate, PCV13 (Prevnar 13) 2005-02-27 00:00:[address] [facility] Polio (IPV/OPV) 2005-02-27 00:00:[address] [facility] DTAP 2005-02-27 00:00:[address] [facility] HIB 4 Dose Schedule 2005-02-27 00:00:[address] [facility] Hep B, Adol or Pedi Dosage 2005-02-27 00:00:[address] [facility] Pneumococcal 13 Conjugate, PCV13 (Prevnar 13) 2005-02-27 00:00:[address] [facility] Polio (IPV/OPV) 2005-02-27 00:00:[address] [facility] DTAP 2005-02-27 00:00:[address] [facility] HIB 4 Dose Schedule 2005-02-27 00:00:[address] [facility] Hep B, Adol or Pedi Dosage 2005-02-27 00:00:[address] [facility] Pneumococcal 13 Conjugate, PCV13 (Prevnar 13) 2005-02-27 00:00:[address] [facility] Polio (IPV/OPV) 2005-02-27 00:00:[address] [facility] DTAP 2005-02-27 00:00:00 Completed HIB 4 Dose Schedule 2004 00:00:00 Completed Hep B, Adol or Pedi Dosage 2004 00:00:00 Completed Pneumococcal 13 Conjugate, PCV13 (Prevnar 13) 2004 00:00:00 Completed Polio (IPV/OPV) 2004 00:00:00 Completed DTAP 2004 00:00:[address] [facility] HIB 4 Dose Schedule 2004 00:00:[address] [facility] Hep B, Adol or Pedi Dosage 2004 00:00:[address] [facility] Pneumococcal 13 Conjugate, PCV13 (Prevnar 13) 2004 00:00:[address] [facility] Polio (IPV/OPV) 2004 00:00:[address] [facility] DTAP 2004 00:00:[address] [facility] HIB 4 Dose Schedule 2004 00:00:[address] [facility] Hep B, Adol or Pedi Dosage 2004 00:00:[address] [facility] Pneumococcal 13 Conjugate, PCV13 (Prevnar 13) 2004 00:00:[address] [facility] Polio (IPV/OPV) 2004 00:00:[address] [facility] DTAP 2004 00:00:[address] [facility] HIB 4 Dose Schedule 2004 00:00:[address] [facility] Hep B, Adol or Pedi Dosage 2004 00:00:[address] [facility] Pneumococcal 13 Conjugate, PCV13 (Prevnar 13) 2004 00:00:[address] [facility] Polio (IPV/OPV) 2004 00:00:[address] [facility] DTAP 2004 00:00:[address] [facility] HIB 4 Dose Schedule 2004 00:00:[address] [facility] Hep B, Adol or Pedi Dosage 2004 00:00:[address] [facility] Pneumococcal 13 Conjugate, PCV13 (Prevnar 13) 2004 00:00:[address] [facility] Polio (IPV/OPV) 2004 00:00:[address] [facility] DTAP 2004 00:00:[address] [facility] HIB 4 Dose Schedule 2004 00:00:[address] [facility] Hep B, Adol or Pedi Dosage 2004 00:00:[address] [facility] Pneumococcal 13 Conjugate, PCV13 (Prevnar 13) 2004 00:00:[address] [facility] Polio (IPV/OPV) 2004 00:00:[address] [facility] DTAP 2004 00:00:[address] [facility] HIB 4 Dose Schedule 2004 00:00:[address] [facility] Hep B, Adol or Pedi Dosage 2004 00:00:[address] [facility] Pneumococcal 13 Conjugate, PCV13 (Prevnar 13) 2004 00:00:[address] [facility] Polio (IPV/OPV) 2004 00:00:[address] [facility] DTAP 2004 00:00:[address] [facility] HIB 4 Dose Schedule 2004 00:00:[address] [facility] Hep B, Adol or Pedi Dosage 2004 00:00:[address] [facility] Pneumococcal 13 Conjugate, PCV13 (Prevnar 13) 2004 00:00:[address] [facility] Polio (IPV/OPV) 2004 00:00:[address] [facility] DTAP 2004 00:00:[address] [facility] HIB 4 Dose Schedule 2004 00:00:[address] [facility] Hep B, Adol or Pedi Dosage 2004 00:00:[address] [facility] Pneumococcal 13 Conjugate, PCV13 (Prevnar 13) 2004 00:00:[address] [facility] Polio (IPV/OPV) 2004 00:00:[address] [facility] DTAP 2004 00:00:[address] [facility] HIB 4 Dose Schedule 2004 00:00:[address] [facility] Hep B, Adol or Pedi Dosage 2004 00:00:[address] [facility] Pneumococcal 13 Conjugate, PCV13 (Prevnar 13) 2004 00:00:[address] [facility] Polio (IPV/OPV) 2004 00:00:[address] [facility] DTAP 2004 00:00:[address] [facility] HIB 4 Dose Schedule 2004 00:00:[address] [facility] Hep B, Adol or Pedi Dosage 2004 00:00:[address] [facility] Pneumococcal 13 Conjugate, PCV13 (Prevnar 13) 2004 00:00:[address] [facility] Polio (IPV/OPV) 2004 00:00:[address] [facility] DTAP 2004 00:00:[address] [facility] HIB 4 Dose Schedule 2004 00:00:[address] [facility] Hep B, Adol or Pedi Dosage 2004 00:00:[address] [facility] Pneumococcal 13 Conjugate, PCV13 (Prevnar 13) 2004 00:00:[address] [facility] Polio (IPV/OPV) 2004 00:00:[address] [facility] DTAP 2004 00:00:[address] [facility] HIB 4 Dose Schedule 2004 00:00:[address] [facility] Hep B, Adol or Pedi Dosage 2004 00:00:[address] [facility] Pneumococcal 13 Conjugate, PCV13 (Prevnar 13) 2004 00:00:[address] [facility] Polio (IPV/OPV) 2004 00:00:[address] [facility] DTAP 2004 00:00:[address] [facility] HIB 4 Dose Schedule 2004 00:00:[address] [facility] Hep B, Adol or Pedi Dosage 2004 00:00:[address] [facility] Pneumococcal 13 Conjugate, PCV13 (Prevnar 13) 2004 00:00:[address] [facility] Polio (IPV/OPV) 2004 00:00:[address] [facility] DTAP 2004 00:00:[address] [facility] HIB 4 Dose Schedule 2004 00:00:[address] [facility] Hep B, Adol or Pedi Dosage 2004 00:00:[address] [facility] Pneumococcal 13 Conjugate, PCV13 (Prevnar 13) 2004 00:00:[address] [facility] Polio (IPV/OPV) 2004 00:00:[address] [facility] DTAP 2004 00:00:[address] [facility] HIB 4 Dose Schedule 2004 00:00:[address] [facility] Hep B, Adol or Pedi Dosage 2004 00:00:[address] [facility] Pneumococcal 13 Conjugate, PCV13 (Prevnar 13) 2004 00:00:[address] [facility] Polio (IPV/OPV) 2004 00:00:[address] [facility] DTAP 2004 00:00:[address] [facility] HIB 4 Dose Schedule 2004 00:00:[address] [facility] Hep B, Adol or Pedi Dosage 2004 00:00:[address] [facility] Pneumococcal 13 Conjugate, PCV13 (Prevnar 13) 2004 00:00:[address] [facility] Polio (IPV/OPV) 2004 00:00:[address] [facility] DTAP 2004 00:00:[address] [facility] HIB 4 Dose Schedule 2004 00:00:[address] [facility] Hep B, Adol or Pedi Dosage 2004 00:00:[address] [facility] Pneumococcal 13 Conjugate, PCV13 (Prevnar 13) 2004 00:00:[address] [facility] Polio (IPV/OPV) 2004 00:00:[address] [facility] DTAP 2004 00:00:[address] [facility] HIB 4 Dose Schedule 2004 00:00:[address] [facility] Hep B, Adol or Pedi Dosage 2004 00:00:[address] [facility] Pneumococcal 13 Conjugate, PCV13 (Prevnar 13) 2004 00:00:[address] [facility] Polio (IPV/OPV) 2004 00:00:[address] [facility] DTAP 2004 00:00:[address] [facility] HIB 4 Dose Schedule 2004 00:00:[address] [facility] Hep B, Adol or Pedi Dosage 2004 00:00:[address] [facility] Pneumococcal 13 Conjugate, PCV13 (Prevnar 13) 2004 00:00:[address] [facility] Polio (IPV/OPV) 2004 00:00:[address] [facility] DTAP 2004 00:00:[address] [facility] HIB 4 Dose Schedule 2004 00:00:[address] [facility] Hep B, Adol or Pedi Dosage 2004 00:00:[address] [facility] Pneumococcal 13 Conjugate, PCV13 (Prevnar 13) 2004 00:00:[address] [facility] Polio (IPV/OPV) 2004 00:00:[address] [facility] DTAP 2004 00:00:[address] [facility] HIB 4 Dose Schedule 2004 00:00:[address] [facility] Hep B, Adol or Pedi Dosage 2004 00:00:[address] [facility] Pneumococcal 13 Conjugate, PCV13 (Prevnar 13) 2004 00:00:[address] [facility] Polio (IPV/OPV) 2004 00:00:[address] [facility] DTAP 2004 00:00:[address] [facility] HIB 4 Dose Schedule 2004 00:00:[address] [facility] Hep B, Adol or Pedi Dosage 2004 00:00:[address] [facility] Pneumococcal 13 Conjugate, PCV13 (Prevnar 13) 2004 00:00:[address] [facility] Polio (IPV/OPV) 2004 00:00:[address] [facility] DTAP 2004 00:00:[address] [facility] HIB 4 Dose Schedule 2004 00:00:[address] [facility] Hep B, Adol or Pedi Dosage 2004 00:00:[address] [facility] Pneumococcal 13 Conjugate, PCV13 (Prevnar 13) 2004 00:00:[address] [facility] Polio (IPV/OPV) 2004 00:00:[address] [facility] DTAP 2004 00:00:[address] [facility] HIB 4 Dose Schedule 2004 00:00:[address] [facility] Hep B, Adol or Pedi Dosage 2004 00:00:[address] [facility] Pneumococcal 13 Conjugate, PCV13 (Prevnar 13) 2004 00:00:[address] [facility] Polio (IPV/OPV) 2004 00:00:[address] [facility] DTAP 2004 00:00:[address] [facility] HIB 4 Dose Schedule 2004 00:00:[address] [facility] Hep B, Adol or Pedi Dosage 2004 00:00:[address] [facility] Pneumococcal 13 Conjugate, PCV13 (Prevnar 13) 2004 00:00:[address] [facility] Polio (IPV/OPV) 2004 00:00:[address] [facility] DTAP 2004 00:00:[address] [facility] HIB 4 Dose Schedule 2004 00:00:[address] [facility] Hep B, Adol or Pedi Dosage 2004 00:00:[address] [facility] Pneumococcal 13 Conjugate, PCV13 (Prevnar 13) 2004 00:00:[address] [facility] Polio (IPV/OPV) 2004 00:00:[address] [facility] DTAP 2004 00:00:[address] [facility] HIB 4 Dose Schedule 2004 00:00:[address] [facility] Hep B, Adol or Pedi Dosage 2004 00:00:[address] [facility] Pneumococcal 13 Conjugate, PCV13 (Prevnar 13) 2004 00:00:[address] [facility] Polio (IPV/OPV) 2004 00:00:[address] [facility] DTAP 2004 00:00:[address] [facility] HIB 4 Dose Schedule 2004 00:00:[address] [facility] Hep B, Adol or Pedi Dosage 2004 00:00:[address] [facility] Pneumococcal 13 Conjugate, PCV13 (Prevnar 13) 2004 00:00:[address] [facility] Polio (IPV/OPV) 2004 00:00:[address] [facility] DTAP 2004 00:00:[address] [facility] HIB 4 Dose Schedule 2004 00:00:[address] [facility] Hep B, Adol or Pedi Dosage 2004 00:00:[address] [facility] Pneumococcal 13 Conjugate, PCV13 (Prevnar 13) 2004 00:00:[address] [facility] Polio (IPV/OPV) 2004 00:00:[address] [facility] DTAP 2004 00:00:[address] [facility] HIB 4 Dose Schedule 2004 00:00:[address] [facility] Hep B, Adol or Pedi Dosage 2004 00:00:[address] [facility] Pneumococcal 13 Conjugate, PCV13 (Prevnar 13) 2004 00:00:[address] [facility] Polio (IPV/OPV) 2004 00:00:[address] [facility] DTAP 2004 00:00:[address] [facility] HIB 4 Dose Schedule 2004 00:00:[address] [facility] Hep B, Adol or Pedi Dosage 2004 00:00:[address] [facility] Pneumococcal 13 Conjugate, PCV13 (Prevnar 13) 2004 00:00:[address] [facility] Polio (IPV/OPV) 2004 00:00:[address] [facility] DTAP 2004 00:00:[address] [facility] HIB 4 Dose Schedule 2004 00:00:[address] [facility] Hep B, Adol or Pedi Dosage 2004 00:00:[address] [facility] Pneumococcal 13 Conjugate, PCV13 (Prevnar 13) 2004 00:00:[address] [facility] Polio (IPV/OPV) 2004 00:00:[address] [facility] DTAP 2004 00:00:[address] [facility] HIB 4 Dose Schedule 2004 00:00:[address] [facility] Hep B, Adol or Pedi Dosage 2004 00:00:[address] [facility] Pneumococcal 13 Conjugate, PCV13 (Prevnar 13) 2004 00:00:[address] [facility] Polio (IPV/OPV) 2004 00:00:[address] [facility] DTAP 2004 00:00:00 Completed HIB 4 Dose Schedule 2004 00:00:00 Completed Hep B, Adol or Pedi Dosage 2004 00:00:00 Completed Pneumococcal 13 Conjugate, PCV13 (Prevnar 13) 2004 00:00:00 Completed Polio (IPV/OPV) 2004 00:00:00 Completed DTAP 2004 00:00:[address] [facility] HIB 4 Dose Schedule 2004 00:00:[address] [facility] Hep B, Adol or Pedi Dosage 2004 00:00:[address] [facility] Pneumococcal 13 Conjugate, PCV13 (Prevnar 13) 2004 00:00:[address] [facility] Polio (IPV/OPV) 2004 00:00:[address] [facility] DTAP 2004 00:00:[address] [facility] HIB 4 Dose Schedule 2004 00:00:[address] [facility] Hep B, Adol or Pedi Dosage 2004 00:00:[address] [facility] Pneumococcal 13 Conjugate, PCV13 (Prevnar 13) 2004 00:00:[address] [facility] Polio (IPV/OPV) 2004 00:00:[address] [facility] DTAP 2004 00:00:[address] [facility] HIB 4 Dose Schedule 2004 00:00:[address] [facility] Hep B, Adol or Pedi Dosage 2004 00:00:[address] [facility] Pneumococcal 13 Conjugate, PCV13 (Prevnar 13) 2004 00:00:[address] [facility] Polio (IPV/OPV) 2004 00:00:[address] [facility] DTAP 2004 00:00:[address] [facility] HIB 4 Dose Schedule 2004 00:00:[address] [facility] Hep B, Adol or Pedi Dosage 2004 00:00:[address] [facility] Pneumococcal 13 Conjugate, PCV13 (Prevnar 13) 2004 00:00:[address] [facility] Polio (IPV/OPV) 2004 00:00:[address] [facility] DTAP 2004 00:00:[address] [facility] HIB 4 Dose Schedule 2004 00:00:[address] [facility] Hep B, Adol or Pedi Dosage 2004 00:00:[address] [facility] Pneumococcal 13 Conjugate, PCV13 (Prevnar 13) 2004 00:00:[address] [facility] Polio (IPV/OPV) 2004 00:00:[address] [facility] DTAP 2004 00:00:[address] [facility] HIB 4 Dose Schedule 2004 00:00:[address] [facility] Hep B, Adol or Pedi Dosage 2004 00:00:[address] [facility] Pneumococcal 13 Conjugate, PCV13 (Prevnar 13) 2004 00:00:[address] [facility] Polio (IPV/OPV) 2004 00:00:[address] [facility] DTAP 2004 00:00:[address] [facility] HIB 4 Dose Schedule 2004 00:00:[address] [facility] Hep B, Adol or Pedi Dosage 2004 00:00:[address] [facility] Pneumococcal 13 Conjugate, PCV13 (Prevnar 13) 2004 00:00:[address] [facility] Polio (IPV/OPV) 2004 00:00:[address] [facility] DTAP 2004 00:00:[address] [facility] HIB 4 Dose Schedule 2004 00:00:[address] [facility] Hep B, Adol or Pedi Dosage 2004 00:00:[address] [facility] Pneumococcal 13 Conjugate, PCV13 (Prevnar 13) 2004 00:00:[address] [facility] Polio (IPV/OPV) 2004 00:00:[address] [facility] DTAP 2004 00:00:[address] [facility] HIB 4 Dose Schedule 2004 00:00:[address] [facility] Hep B, Adol or Pedi Dosage 2004 00:00:[address] [facility] Pneumococcal 13 Conjugate, PCV13 (Prevnar 13) 2004 00:00:[address] [facility] Polio (IPV/OPV) 2004 00:00:[address] [facility] DTAP 2004 00:00:[address] [facility] HIB 4 Dose Schedule 2004 00:00:[address] [facility] Hep B, Adol or Pedi Dosage 2004 00:00:[address] [facility] Pneumococcal 13 Conjugate, PCV13 (Prevnar 13) 2004 00:00:[address] [facility] Polio (IPV/OPV) 2004 00:00:[address] [facility] DTAP 2004 00:00:[address] [facility] HIB 4 Dose Schedule 2004 00:00:[address] [facility] Hep B, Adol or Pedi Dosage 2004 00:00:[address] [facility] Pneumococcal 13 Conjugate, PCV13 (Prevnar 13) 2004 00:00:[address] [facility] Polio (IPV/OPV) 2004 00:00:[address] [facility] DTAP 2004 00:00:[address] [facility] HIB 4 Dose Schedule 2004 00:00:[address] [facility] Hep B, Adol or Pedi Dosage 2004 00:00:[address] [facility] Pneumococcal 13 Conjugate, PCV13 (Prevnar 13) 2004 00:00:[address] [facility] Polio (IPV/OPV) 2004 00:00:[address] [facility] DTAP 2004 00:00:[address] [facility] HIB 4 Dose Schedule 2004 00:00:[address] [facility] Hep B, Adol or Pedi Dosage 2004 00:00:[address] [facility] Pneumococcal 13 Conjugate, PCV13 (Prevnar 13) 2004 00:00:[address] [facility] Polio (IPV/OPV) 2004 00:00:[address] [facility] DTAP 2004 00:00:[address] [facility] HIB 4 Dose Schedule 2004 00:00:[address] [facility] Hep B, Adol or Pedi Dosage 2004 00:00:[address] [facility] Pneumococcal 13 Conjugate, PCV13 (Prevnar 13) 2004 00:00:[address] [facility] Polio (IPV/OPV) 2004 00:00:[address] [facility] DTAP 2004 00:00:[address] [facility] HIB 4 Dose Schedule 2004 00:00:[address] [facility] Hep B, Adol or Pedi Dosage 2004 00:00:[address] [facility] Pneumococcal 13 Conjugate, PCV13 (Prevnar 13) 2004 00:00:[address] [facility] Polio (IPV/OPV) 2004 00:00:[address] [facility] DTAP 2004 00:00:[address] [facility] HIB 4 Dose Schedule 2004 00:00:[address] [facility] Hep B, Adol or Pedi Dosage 2004 00:00:[address] [facility] Pneumococcal 13 Conjugate, PCV13 (Prevnar 13) 2004 00:00:[address] [facility] Polio (IPV/OPV) 2004 00:00:[address] [facility] DTAP 2004 00:00:[address] [facility] HIB 4 Dose Schedule 2004 00:00:[address] [facility] Hep B, Adol or Pedi Dosage 2004 00:00:[address] [facility] Pneumococcal 13 Conjugate, PCV13 (Prevnar 13) 2004 00:00:[address] [facility] Polio (IPV/OPV) 2004 00:00:[address] [facility] DTAP 2004 00:00:[address] [facility] HIB 4 Dose Schedule 2004 00:00:[address] [facility] Hep B, Adol or Pedi Dosage 2004 00:00:[address] [facility] Pneumococcal 13 Conjugate, PCV13 (Prevnar 13) 2004 00:00:[address] [facility] Polio (IPV/OPV) 2004 00:00:[address] [facility] DTAP 2004 00:00:[address] [facility] HIB 4 Dose Schedule 2004 00:00:[address] [facility] Hep B, Adol or Pedi Dosage 2004 00:00:[address] [facility] Pneumococcal 13 Conjugate, PCV13 (Prevnar 13) 2004 00:00:[address] [facility] Polio (IPV/OPV) 2004 00:00:[address] [facility] DTAP 2004 00:00:[address] [facility] HIB 4 Dose Schedule 2004 00:00:[address] [facility] Hep B, Adol or Pedi Dosage 2004 00:00:[address] [facility] Pneumococcal 13 Conjugate, PCV13 (Prevnar 13) 2004 00:00:[address] [facility] Polio (IPV/OPV) 2004 00:00:[address] [facility] DTAP 2004 00:00:[address] [facility] HIB 4 Dose Schedule 2004 00:00:[address] [facility] Hep B, Adol or Pedi Dosage 2004 00:00:[address] [facility] [facility] Pneumococcal 13 Conjugate, PCV13 (Prevnar 13) 2004 00:00:[address] [facility] Polio (IPV/OPV) 2004 00:00:[address] [facility] DTAP 2004 00:00:[address] [facility] HIB 4 Dose Schedule 2004 00:00:[address] [facility] Hep B, Adol or Pedi Dosage 2004 00:00:[address] [facility] Pneumococcal 13 Conjugate, PCV13 (Prevnar 13) 2004 00:00:[address] [facility] Polio (IPV/OPV) 2004 00:00:[address] [facility] DTAP 2004 00:00:[address] [facility] HIB 4 Dose Schedule 2004 00:00:[address] [facility] Hep B, Adol or Pedi Dosage 2004 00:00:[address] [facility] Pneumococcal 13 Conjugate, PCV13 (Prevnar 13) 2004 00:00:[address] [facility] Polio (IPV/OPV) 2004 00:00:[address] [facility] DTAP 2004 00:00:[address] [facility] HIB 4 Dose Schedule 2004 00:00:[address] [facility] Hep B, Adol or Pedi Dosage 2004 00:00:[address] [facility] Pneumococcal 13 Conjugate, PCV13 (Prevnar 13) 2004 00:00:[address] [facility] Polio (IPV/OPV) 2004 00:00:[address] [facility] DTAP 2004 00:00:[address] [facility] HIB 4 Dose Schedule 2004 00:00:[address] [facility] Hep B, Adol or Pedi Dosage 2004 00:00:[address] [facility] Pneumococcal 13 Conjugate, PCV13 (Prevnar 13) 2004 00:00:[address] [facility] Polio (IPV/OPV) 2004 00:00:[address] [facility] DTAP 2004 00:00:[address] [facility] HIB 4 Dose Schedule 2004 00:00:[address] [facility] Hep B, Adol or Pedi Dosage 2004 00:00:[address] [facility] Pneumococcal 13 Conjugate, PCV13 (Prevnar 13) 2004 00:00:[address] [facility] Polio (IPV/OPV) 2004 00:00:[address] [facility] DTAP 2004 00:00:[address] [facility] HIB 4 Dose Schedule 2004 00:00:[address] [facility] Hep B, Adol or Pedi Dosage 2004 00:00:[address] [facility] Pneumococcal 13 Conjugate, PCV13 (Prevnar 13) 2004 00:00:[address] [facility] Polio (IPV/OPV) 2004 00:00:[address] [facility] DTAP 2004 00:00:[address] [facility] HIB 4 Dose Schedule 2004 00:00:[address] [facility] Hep B, Adol or Pedi Dosage 2004 00:00:[address] [facility] Pneumococcal 13 Conjugate, PCV13 (Prevnar 13) 2004 00:00:[address] [facility] Polio (IPV/OPV) 2004 00:00:[address] [facility] DTAP 2004 00:00:[address] [facility] HIB 4 Dose Schedule 2004 00:00:[address] [facility] Hep B, Adol or Pedi Dosage 2004 00:00:[address] [facility] Pneumococcal 13 Conjugate, PCV13 (Prevnar 13) 2004 00:00:[address] [facility] Polio (IPV/OPV) 2004 00:00:[address] [facility] DTAP 2004 00:00:[address] [facility] HIB 4 Dose Schedule 2004 00:00:[address] [facility] Hep B, Adol or Pedi Dosage 2004 00:00:[address] [facility] Pneumococcal 13 Conjugate, PCV13 (Prevnar 13) 2004 00:00:[address] [facility] Polio (IPV/OPV) 2004 00:00:[address] [facility] DTAP 2004 00:00:[address] [facility] HIB 4 Dose Schedule 2004 00:00:[address] [facility] Hep B, Adol or Pedi Dosage 2004 00:00:[address] [facility] Pneumococcal 13 Conjugate, PCV13 (Prevnar 13) 2004 00:00:[address] [facility] Polio (IPV/OPV) 2004 00:00:[address] [facility] DTAP 2004 00:00:[address] [facility] HIB 4 Dose Schedule 2004 00:00:[address] [facility] Hep B, Adol or Pedi Dosage 2004 00:00:[address] [facility] Pneumococcal 13 Conjugate, PCV13 (Prevnar 13) 2004 00:00:[address] [facility] Polio (IPV/OPV) 2004 00:00:[address] [facility] DTAP 2004 00:00:[address] [facility] HIB 4 Dose Schedule 2004 00:00:[address] [facility] Hep B, Adol or Pedi Dosage 2004 00:00:[address] [facility] Pneumococcal 13 Conjugate, PCV13 (Prevnar 13) 2004 00:00:[address] [facility] Polio (IPV/OPV) 2004 00:00:[address] [facility] DTAP 2004 00:00:[address] [facility] Hep B, Adol or Pedi Dosage 2004 00:00:00 Completed Hep B, Adol or Pedi Dosage 2004 00:00:[address] [facility] Hep B, Adol or Pedi Dosage 2004 00:00:[address] [facility] Hep B, Adol or Pedi Dosage 2004 00:00:[address] [facility] Hep B, Adol or Pedi Dosage 2004 00:00:[address] [facility] Hep B, Adol or Pedi Dosage 2004 00:00:[address] [facility] Hep B, Adol or Pedi Dosage 2004 00:00:[address] [facility] Hep B, Adol or Pedi Dosage 2004 00:00:[address] [facility] Hep B, Adol or Pedi Dosage 2004 00:00:[address] [facility] Hep B, Adol or Pedi Dosage 2004 00:00:[address] [facility] Hep B, Adol or Pedi Dosage 2004 00:00:[address] [facility] Hep B, Adol or Pedi Dosage 2004 00:00:[address] [facility] Hep B, Adol or Pedi Dosage 2004 00:00:[address] [facility] Hep B, Adol or Pedi Dosage 2004 00:00:[address] [facility] Hep B, Adol or Pedi Dosage 2004 00:00:[address] [facility] Hep B, Adol or Pedi Dosage 2004 00:00:[address] [facility] Hep B, Adol or Pedi Dosage 2004 00:00:[address] [facility] Hep B, Adol or Pedi Dosage 2004 00:00:[address] [facility] Hep B, Adol or Pedi Dosage 2004 00:00:[address] [facility] Hep B, Adol or Pedi Dosage 2004 00:00:[address] [facility] Hep B, Adol or Pedi Dosage 2004 00:00:[address] [facility] Hep B, Adol or Pedi Dosage 2004 00:00:[address] [facility] Hep B, Adol or Pedi Dosage 2004 00:00:[address] [facility] Hep B, Adol or Pedi Dosage 2004 00:00:[address] [facility] Hep B, Adol or Pedi Dosage 2004 00:00:[address] [facility] Hep B, Adol or Pedi Dosage 2004 00:00:[address] [facility] Hep B, Adol or Pedi Dosage 2004 00:00:[address] [facility] Hep B, Adol or Pedi Dosage 2004 00:00:[address] [facility] Hep B, Adol or Pedi Dosage 2004 00:00:[address] [facility] Hep B, Adol or Pedi Dosage 2004 00:00:[address] [facility] Hep B, Adol or Pedi Dosage 2004 00:00:[address] [facility] Hep B, Adol or Pedi Dosage 2004 00:00:[address] [facility] Hep B, Adol or Pedi Dosage 2004 00:00:[address] [facility] Hep B, Adol or Pedi Dosage 2004 00:00:[address] [facility] Influenza Virus Vaccine Quad .5 mL IM 6+ MO (FLUZONE/FLULAVAL/FL UARIX) Unknown Completed [facility] DTAP Unknown Completed [facility] HIB 4 Dose Schedule Unknown Completed [facility] HEPATITIS A Unknown Completed [facility] Hep B, Adol or Pedi Dosage Unknown Completed [facility] Meningococcal Polysaccharide (groups A, C, Y and W-135) conjugate vaccine (MCV4P) Unknown Completed [facility] MMR Unknown Completed [facility] Pneumococcal 13 Conjugate, PCV13 (Prevnar 13) Unknown Completed [facility] Polio (IPV/OPV) Unknown Completed [facility] TDAP Unknown Completed [facility] Varicella (varivax)(chicken pox) Unknown Completed [facility] HPV9 [address] [facility] Pneumococcal Polysaccharide, PPSV23 (PNEUMOVAX) Unknown Completed [facility] Influenza Virus Vaccine Quad .5 mL IM 6+ MO (FLUZONE/FLULAVAL/FL UARIX) Unknown Completed [facility] DTAP Unknown Completed [facility] HIB 4 Dose Schedule Unknown Completed [facility] HEPATITIS A Unknown Completed [facility] Hep B, Adol or Pedi Dosage Unknown Completed [facility] Meningococcal Polysaccharide (groups A, C, Y and W-135) conjugate vaccine (MCV4P) Unknown Completed [facility] MMR Unknown Completed [facility] Pneumococcal 13 Conjugate, PCV13 (Prevnar 13) Unknown Completed [facility] Polio (IPV/OPV) Unknown Completed [facility] TDAP Unknown Completed [facility] Varicella (varivax)(chicken pox) Unknown Completed [facility] HPV9 [address] [facility] Pneumococcal Polysaccharide, PPSV23 (PNEUMOVAX) Unknown Completed [facility] Influenza Virus Vaccine Quad .5 mL IM 6+ MO (FLUZONE/FLULAVAL/FL UARIX) Unknown Completed [facility] DTAP Unknown Completed [facility] HIB 4 Dose Schedule Unknown Completed [facility] HEPATITIS A Unknown Completed [facility] Hep B, Adol or Pedi Dosage Unknown Completed [facility] Meningococcal Polysaccharide (groups A, C, Y and W-135) conjugate vaccine (MCV4P) Unknown Completed [facility] MMR Unknown Completed [facility] Pneumococcal 13 Conjugate, PCV13 (Prevnar 13) Unknown Completed [facility] Polio (IPV/OPV) Unknown Completed [facility] TDAP Unknown Completed [facility] Varicella (varivax)(chicken pox) Unknown Completed [facility] HPV9 [address] Com[address] [facility] Pneumococcal Polysaccharide, PPSV23 (PNEUMOVAX) Unknown Completed [facility] Pneumococcal Polysaccharide, PPSV23 (PNEUMOVAX) Unknown Completed [facility] Influenza Virus Vaccine Quad .5 mL IM 6+ MO (FLUZONE/FLULAVAL/FL UARIX) Unknown Completed [facility] DTAP Unknown Completed [facility] HIB 4 Dose Schedule Unknown Completed [facility] HEPATITIS A Unknown Completed [facility] Hep B, Adol or Pedi Dosage Unknown Completed [facility] Meningococcal Polysaccharide (groups A, C, Y and W-135) conjugate vaccine (MCV4P) Unknown Completed [facility] MMR Unknown Completed [facility] Pneumococcal 13 Conjugate, PCV13 (Prevnar 13) Unknown Completed [facility] Polio (IPV/OPV) Unknown Completed [facility] TDAP Unknown Completed [facility] Varicella (varivax)(chicken pox) Unknown Completed [facility] HPV9 [address] Com[address] [facility] Pneumococcal Polysaccharide, PPSV23 (PNEUMOVAX) Unknown Completed [facility] Influenza Virus Vaccine Quad .5 mL IM 6+ MO (FLUZONE/FLULAVAL/FL UARIX) Unknown Completed [facility] DTAP Unknown Completed [facility] HIB 4 Dose Schedule Unknown Completed [facility] HEPATITIS A Unknown Completed [facility] Hep B, Adol or Pedi Dosage Unknown Completed [facility] Meningococcal Polysaccharide (groups A, C, Y and W-135) conjugate vaccine (MCV4P) Unknown Completed [facility] MMR Unknown Completed [facility] Pneumococcal 13 Conjugate, PCV13 (Prevnar 13) Unknown Completed [facility] Polio (IPV/OPV) Unknown Completed [facility] TDAP Unknown Completed [facility] Varicella (varivax)(chicken pox) Unknown Completed [facility] HPV9 [address] Com[address] [facility] Pneumococcal Polysaccharide, PPSV23 (PNEUMOVAX) Unknown Completed [facility] Influenza Virus Vaccine Quad .5 mL IM 6+ MO (FLUZONE/FLULAVAL/FL UARIX) Unknown Completed [facility] DTAP Unknown Completed [facility] HIB 4 Dose Schedule Unknown Completed [facility] HEPATITIS A Unknown Completed [facility] Hep B, Adol or Pedi Dosage Unknown Completed [facility] Meningococcal Polysaccharide (groups A, C, Y and W-135) conjugate vaccine (MCV4P) Unknown Completed [facility] MMR Unknown Completed [facility] Pneumococcal 13 Conjugate, PCV13 (Prevnar 13) Unknown Completed [facility] Polio (IPV/OPV) Unknown Completed [facility] TDAP Unknown Completed [facility] Varicella (varivax)(chicken pox) Unknown Completed [facility] HPV9 [address] Com[address] [facility] Influenza Virus Vaccine Quad .5 mL IM 6+ MO (FLUZONE/FLULAVAL/FL UARIX) Unknown Completed [facility] DTAP Unknown Completed [facility] HIB 4 Dose Schedule Unknown Completed [facility] HEPATITIS A Unknown Completed [facility] Hep B, Adol or Pedi Dosage Unknown Completed [facility] Meningococcal Polysaccharide (groups A, C, Y and W-135) conjugate vaccine (MCV4P) Unknown Completed [facility] MMR Unknown Completed [facility] Pneumococcal 13 Conjugate, PCV13 (Prevnar 13) Unknown Completed [facility] Polio (IPV/OPV) Unknown Completed [facility] TDAP Unknown Completed [facility] Varicella (varivax)(chicken pox) Unknown Completed [facility] HPV9 [address] Com[address] [facility] Pneumococcal Polysaccharide, PPSV23 (PNEUMOVAX) Unknown Completed [facility] Influenza Virus Vaccine Quad .5 mL IM 6+ MO (FLUZONE/FLULAVAL/FL UARIX) Unknown Completed [facility] DTAP Unknown Completed [facility] HIB 4 Dose Schedule Unknown Completed [facility] HEPATITIS A Unknown Completed [facility] Hep B, Adol or Pedi Dosage Unknown Completed [facility] Meningococcal Polysaccharide (groups A, C, Y and W-135) conjugate vaccine (MCV4P) Unknown Completed [facility] MMR Unknown Completed [facility] Pneumococcal 13 Conjugate, PCV13 (Prevnar 13) Unknown Completed [facility] Polio (IPV/OPV) Unknown Completed [facility] TDAP Unknown Completed [facility] Varicella (varivax)(chicken pox) Unknown Completed [facility] HPV9 [address] Com[address] [facility] Pneumococcal Polysaccharide, PPSV23 (PNEUMOVAX) Unknown Completed [facility] Pneumococcal Polysaccharide, PPSV23 (PNEUMOVAX) Unknown Completed [facility] Influenza Virus Vaccine Quad .5 mL IM 6+ MO (FLUZONE/FLULAVAL/FL UARIX) Unknown Completed [facility] DTAP Unknown Completed [facility] HIB 4 Dose Schedule Unknown Completed [facility] HEPATITIS A Unknown Completed [facility] Hep B, Adol or Pedi Dosage Unknown Completed [facility] Meningococcal Polysaccharide (groups A, C, Y and W-135) conjugate vaccine (MCV4P) Unknown Completed [facility] MMR Unknown Completed [facility] Pneumococcal 13 Conjugate, PCV13 (Prevnar 13) Unknown Completed [facility] Polio (IPV/OPV) Unknown Completed [facility] TDAP Unknown Completed [facility] Varicella (varivax)(chicken pox) Unknown Completed [facility] HPV9 [address] Com[address] [facility] Influenza Virus Vaccine Quad .5 mL IM 6+ MO (FLUZONE/FLULAVAL/FL UARIX) Unknown Completed [facility] DTAP Unknown Completed [facility] HIB 4 Dose Schedule Unknown Completed [facility] HEPATITIS A Unknown Completed [facility] Hep B, Adol or Pedi Dosage Unknown Completed [facility] Meningococcal Polysaccharide (groups A, C, Y and W-135) conjugate vaccine (MCV4P) Unknown Completed [facility] MMR Unknown Completed [facility] Pneumococcal 13 Conjugate, PCV13 (Prevnar 13) Unknown Completed [facility] Polio (IPV/OPV) Unknown Completed [facility] TDAP Unknown Completed [facility] Varicella (varivax)(chicken pox) Unknown Completed [facility] HPV9 Unknown Completed [facility] Pneumococcal Polysaccharide, PPSV23 (PNEUMOVAX) Unknown Completed [facility] Influenza Virus Vaccine Quad .5 mL IM 6+ MO (FLUZONE/FLULAVAL/FL UARIX) Unknown Completed [facility] DTAP Unknown Completed [facility] HIB 4 Dose Schedule Unknown Completed [facility] HEPATITIS A Unknown Completed [facility] Hep B, Adol or Pedi Dosage Unknown Completed [facility] Meningococcal Polysaccharide (groups A, C, Y and W-135) conjugate vaccine (MCV4P) Unknown Completed [facility] MMR Unknown Completed [facility] Pneumococcal 13 Conjugate, PCV13 (Prevnar 13) Unknown Completed [facility] Polio (IPV/OPV) Unknown Completed [facility] TDAP Unknown Completed [facility] Varicella (varivax)(chicken pox) Unknown Completed [facility] HPV9 Unknown Com[address] [facility] Pneumococcal Polysaccharide, PPSV23 (PNEUMOVAX) Unknown Completed [facility] Influenza Virus Vaccine Quad .5 mL IM 6+ MO (FLUZONE/FLULAVAL/FL UARIX) Unknown Completed [facility] DTAP Unknown Completed [facility] HIB 4 Dose Schedule Unknown Completed [facility] HEPATITIS A Unknown Completed [facility] Hep B, Adol or Pedi Dosage Unknown Completed [facility] Meningococcal Polysaccharide (groups A, C, Y and W-135) conjugate vaccine (MCV4P) Unknown Completed [facility] MMR Unknown Completed [facility] Pneumococcal 13 Conjugate, PCV13 (Prevnar 13) Unknown Completed [facility] Polio (IPV/OPV) Unknown Completed [facility] TDAP Unknown Completed [facility] Varicella (varivax)(chicken pox) Unknown Completed [facility] HPV9 Unknown Completed [facility] Pneumococcal Polysaccharide, PPSV23 (PNEUMOVAX) Unknown Completed [facility] Influenza Virus Vaccine Quad .5 mL IM 6+ MO (FLUZONE/FLULAVAL/FL UARIX) Unknown Completed [facility] DTAP Unknown Completed [facility] HIB 4 Dose Schedule Unknown Completed [facility] HEPATITIS A Unknown Completed [facility] Hep B, Adol or Pedi Dosage Unknown Completed [facility] Meningococcal Polysaccharide (groups A, C, Y and W-135) conjugate vaccine (MCV4P) Unknown Completed [facility] MMR Unknown Completed [facility] Pneumococcal 13 Conjugate, PCV13 (Prevnar 13) Unknown Completed [facility] Polio (IPV/OPV) Unknown Completed [facility] TDAP Unknown Completed [facility] Varicella (varivax)(chicken pox) Unknown Completed [facility] HPV9 Unknown Completed [facility] Pneumococcal Polysaccharide, PPSV23 (PNEUMOVAX) Unknown Completed [facility] Influenza Virus Vaccine Quad .5 mL IM 6+ MO (FLUZONE/FLULAVAL/FL UARIX) Unknown Completed [facility] DTAP Unknown Completed [facility] HIB 4 Dose Schedule Unknown Completed [facility] HEPATITIS A Unknown Completed [facility] Hep B, Adol or Pedi Dosage Unknown Completed [facility] Meningococcal Polysaccharide (groups A, C, Y and W-135) conjugate vaccine (MCV4P) Unknown Completed [facility] MMR Unknown Completed [facility] Pneumococcal 13 Conjugate, PCV13 (Prevnar 13) Unknown Completed [facility] Polio (IPV/OPV) Unknown Completed [facility] TDAP Unknown Completed [facility] Varicella (varivax)(chicken pox) Unknown Completed [facility] HPV9 Unknown Completed [facility] Pneumococcal Polysaccharide, PPSV23 (PNEUMOVAX) Unknown Completed [facility] Vital Signs Vital Name Observation Time Observation Value Comments S ource Systolic blood pressure 2024-10-26 20:00:00 107 mm[Hg] [facility] Diastolic blood pressure 2024-10-26 20:00:00 57 mm[Hg] [facility] Heart rate 2024-10-26 20:00:00 92 /min [facility] Respiratory rate 2024-10-26 20:00:00 13 /min [facility] Oxygen saturation in Arterial blood by Pulse oximetry 2024-10-26 20:00:00 99 /min [facility] Body temperature 2024-10-26 17:13:[address] [facility] Body height 2024-10-26 17:13:00 160 cm [facility] Body weight 2024-10-26 17:13:00 45.36 kg [facility] BMI 2024-10-26 17:13:00 17.71 kg/m2 [facility] Systolic blood pressure 2024-10-26 15:42:00 100 mm[Hg] [facility] Diastolic blood pressure 2024-10-26 15:42:00 68 mm[Hg] [facility] Heart rate 2024-10-26 15:42:00 99 /min [facility] Respiratory rate 2024-10-26 15:42:00 16 /min [facility] Body height 2024-10-26 15:42:00 158.8 cm [facility] Body weight 2024-10-26 15:42:00 45.558 kg [facility] BMI 2024-10-26 15:42:00 18.08 kg/m2 [facility] Systolic blood pressure 2024-08-30 21:15:00 97 mm[Hg] [facility] Diastolic blood pressure 2024-08-30 21:15:00 57 mm[Hg] [facility] Heart rate 2024-08-30 21:15:00 69 /min [facility] Body temperature 2024-08-30 21:15:[address] [facility] Respiratory rate 2024-08-30 21:15:00 18 /min [facility] Oxygen saturation in Arterial blood by Pulse oximetry 2024-08-30 21:15:00 98 /min [facility] Body weight 2024-08-27 10:00:00 43.999 kg [facility] BMI 2024-08-27 10:00:00 17.18 kg/m2 [facility] Body height 2024-08-24 16:58:00 160 cm [facility] Systolic blood pressure 2024 21:34:43 92 mm[Hg] [facility] Diastolic blood pressure 2024 21:34:43 61 mm[Hg] [facility] Heart rate 2024 21:34:43 91 /min [facility] Body temperature 2024 21:34:[address] [facility] Respiratory rate 2024 21:34:43 16 /min [facility] Oxygen saturation in Arterial blood by Pulse oximetry 2024 21:34:43 97 /min [facility] Body height 2024 18:42:00 160 cm [facility] Body weight 2024 18:42:00 41.731 kg [facility] BMI 2024 18:42:00 16.30 kg/m2 [facility] Systolic blood pressure 2024-08-11 14:29:00 96 mm[Hg] [facility] Diastolic blood pressure 2024-08-11 14:29:00 56 mm[Hg] [facility] Heart rate 2024-08-11 14:29:00 69 /min [facility] Body temperature 2024-08-11 14:29:[address] [facility] Respiratory rate 2024-08-11 14:29:00 17 /min [facility] Body height 2024-08-11 14:29:00 160 cm [facility] Body weight 2024-08-11 14:29:00 44.18 kg [facility] BMI 2024-08-11 14:29:00 17.25 kg/m2 [facility] Oxygen saturation in Arterial blood by Pulse oximetry 2024-08-11 14:29:00 100 /min [facility] Systolic blood pressure 2024-05-10 12:51:00 111 mm[Hg] [facility] Diastolic blood pressure 2024-05-10 12:51:00 72 mm[Hg] [facility] Heart rate 2024-05-10 12:51:00 108 /min [facility] Body temperature 2024-05-10 12:51:[address] [facility] Respiratory rate 2024-05-10 12:51:00 16 /min [facility] Body height 2024-05-10 12:51:00 160 cm [facility] Body weight 2024-05-10 12:51:00 44.169 kg [facility] BMI 2024-05-10 12:51:00 17.25 kg/m2 [facility] Systolic blood pressure 2024-02-26 13:56:00 106 mm[Hg] [facility] Diastolic blood pressure 2024-02-26 13:56:00 70 mm[Hg] [facility] Heart rate 2024-02-26 13:56:00 87 /min [facility] Respiratory rate 2024-02-26 13:56:00 18 /min [facility] Body height 2024-02-26 13:56:00 158.8 cm [facility] Body weight 2024-02-26 13:56:00 42.638 kg [facility] BMI 2024-02-26 13:56:00 16.92 kg/m2 [facility] Systolic blood pressure 2024-02-15 16:03:00 102 mm[Hg] [facility] Diastolic blood pressure 2024-02-15 16:03:00 70 mm[Hg] [facility] Heart rate 2024-02-15 16:03:00 101 /min [facility] Body temperature 2024-02-15 16:03:[address] [facility] Respiratory rate 2024-02-15 16:03:00 16 /min [facility] Body height 2024-02-15 16:03:00 158.8 cm [facility] Body weight 2024-02-15 16:03:00 42.048 kg [facility] BMI 2024-02-15 16:03:00 16.68 kg/m2 [facility] Oxygen saturation in Arterial blood by Pulse oximetry 2024-02-15 16:03:00 98 /min [facility] Systolic blood pressure 2023-10-21 21:11:00 102 mm[Hg] [facility] Diastolic blood pressure 2023-10-21 21:11:00 70 mm[Hg] [facility] Heart rate 2023-10-21 21:11:00 111 /min [facility] Body temperature 2023-10-21 21:11:[address] [facility] Respiratory rate 2023-10-21 21:11:00 14 /min [facility] Body weight 2023-10-21 21:11:00 40.415 kg [facility] Oxygen saturation in Arterial blood by Pulse oximetry 2023-10-21 21:11:00 100 /min [facility] Systolic blood pressure 2023-08-05 14:04:00 125 mm[Hg] [facility] Diastolic blood pressure 2023-08-05 14:04:00 75 mm[Hg] [facility] Heart rate 2023-08-05 14:04:00 106 /min [facility] Respiratory rate 2023-08-05 14:04:00 16 /min [facility] Body weight 2023-08-05 14:04:00 40.484 kg [facility] Systolic blood pressure 2023-07-22 20:25:00 99 mm[Hg] [facility] Diastolic blood pressure 2023-07-22 20:25:00 61 mm[Hg] [facility] Heart rate 2023-07-22 20:25:00 72 /min [facility] Respiratory rate 2023-07-22 20:25:00 16 /min [facility] Body weight 2023-07-22 20:25:00 39.52 kg [facility] Oxygen saturation in Arterial blood by Pulse oximetry 2023-07-22 20:25:00 99 /min [facility] Systolic blood pressure 2023-06-08 14:13:00 102 mm[Hg] [facility] Diastolic blood pressure 2023-06-08 14:13:00 64 mm[Hg] [facility] Heart rate 2023-06-08 14:13:00 99 /min [facility] Body temperature 2023-06-08 14:13:[address] [facility] Respiratory rate 2023-06-08 14:13:00 16 /min [facility] Body height 2023-06-08 14:13:00 158.1 cm [facility] Body weight 2023-06-08 14:13:00 38.964 kg [facility] BMI 2023-06-08 14:13:00 15.59 kg/m2 [facility] Body mass index (BMI) [Percentile] Per age and sex 2023-06-08 14:13:00 0.06 % [facility] Oxygen saturation in Arterial blood by Pulse oximetry 2023-06-08 14:13:00 98 /min [facility] Heart rate 2023-06-01 18:31:00 91 /min [facility] Body temperature 2023-06-01 18:31:[address] [facility] Respiratory rate 2023-06-01 18:31:00 16 /min [facility] Body weight 2023-06-01 18:31:00 39.094 kg [facility] Systolic blood pressure 2023-06-01 18:31:00 102 mm[Hg] [facility] Diastolic blood pressure 2023-06-01 18:31:00 67 mm[Hg] [facility] Systolic blood pressure 2023-03-30 17:46:00 113 mm[Hg] [facility] Diastolic blood pressure 2023-03-30 17:46:00 77 mm[Hg] [facility] Heart rate 2023-03-30 17:46:00 94 /min [facility] Body temperature 2023-03-30 17:46:[address] [facility] Respiratory rate 2023-03-30 17:46:00 15 /min [facility] Body weight 2023-03-30 17:46:00 39.735 kg [facility] Systolic blood pressure 2023-02-27 17:55:00 98 mm[Hg] [facility] Diastolic blood pressure 2023-02-27 17:55:00 56 mm[Hg] [facility] Heart rate 2023-02-27 17:55:00 66 /min [facility] Body temperature 2023-02-27 17:55:[address] [facility] Respiratory rate 2023-02-27 17:55:00 18 /min [facility] Body weight 2023-02-27 17:55:00 39.418 kg [facility] Oxygen saturation in Arterial blood by Pulse oximetry 2023-02-27 17:55:00 98 /min [facility] Systolic blood pressure 2023-01-28 19:56:00 113 mm[Hg] [facility] Diastolic blood pressure 2023-01-28 19:56:00 68 mm[Hg] [facility] Heart rate 2023-01-28 19:56:00 112 /min [facility] Body height 2023-01-28 19:56:00 160.7 cm [facility] Body weight 2023-01-28 19:56:00 39.055 kg [facility] BMI 2023-01-28 19:56:00 15.13 kg/m2 [facility] Body mass index (BMI) [Percentile] Per age and sex 2023-01-28 19:56:00 0.02 % [facility] Oxygen saturation in Arterial blood by Pulse oximetry 2023-01-28 19:56:00 99 /min [facility] Systolic blood pressure 2023-01-21 18:22:00 102 mm[Hg] [facility] Diastolic blood pressure 2023-01-21 18:22:00 69 mm[Hg] [facility] Heart rate 2023-01-21 18:22:00 97 /min [facility] Body temperature 2023-01-21 18:22:[address] [facility] Respiratory rate 2023-01-21 18:22:00 15 /min [facility] Body weight 2023-01-21 18:22:00 39.644 kg [facility] Oxygen saturation in Arterial blood by Pulse oximetry 2023-01-21 18:22:00 98 /min [facility] Systolic blood pressure 2023-01-02 13:48:00 108 mm[Hg] [facility] Diastolic blood pressure 2023-01-02 13:48:00 69 mm[Hg] [facility] Heart rate 2023-01-02 13:48:00 113 /min [facility] Body temperature 2023-01-02 13:48:[address] [facility] Respiratory rate 2023-01-02 13:48:00 15 /min [facility] Body weight 2023-01-02 13:48:00 39.554 kg [facility] Systolic blood pressure 2022-12-18 18:46:00 101 mm[Hg] [facility] Diastolic blood pressure 2022-12-18 18:46:00 70 mm[Hg] [facility] Heart rate 2022-12-18 18:46:00 98 /min [facility] Body temperature 2022-12-18 18:46:[address] [facility] Respiratory rate 2022-12-18 18:46:00 15 /min [facility] Body weight 2022-12-18 18:46:00 38.374 kg [facility] Oxygen saturation in Arterial blood by Pulse oximetry 2022-12-18 18:46:00 100 /min [facility] Systolic blood pressure 2022-12-02 18:55:00 108 mm[Hg] [facility] Diastolic blood pressure 2022-12-02 18:55:00 73 mm[Hg] [facility] Heart rate 2022-12-02 18:55:00 110 /min [facility] Body temperature 2022-12-02 18:55:[address] [facility] Respiratory rate 2022-12-02 18:55:00 19 /min [facility] Body weight 2022-12-02 18:55:00 38.828 kg [facility] Systolic blood pressure 2022-09-10 20:37:00 105 mm[Hg] [facility] Diastolic blood pressure 2022-09-10 20:37:00 73 mm[Hg] [facility] Heart rate 2022-09-10 20:37:00 119 /min [facility] Body temperature 2022-09-10 20:37:[address] [facility] Respiratory rate 2022-09-10 20:37:00 18 /min [facility] Body weight 2022-09-10 20:37:00 37.875 kg [facility] Oxygen saturation in Arterial blood by Pulse oximetry 2022-09-10 20:37:00 98 /min [facility] Systolic blood pressure 2022-06-16 15:22:00 103 mm[Hg] [facility] Diastolic blood pressure 2022-06-16 15:22:00 69 mm[Hg] [facility] Heart rate 2022-06-16 15:22:00 95 /min [facility] Body temperature 2022-06-16 15:22:[address] [facility] Respiratory rate 2022-06-16 15:22:00 18 /min [facility] Body weight 2022-06-16 15:22:00 39.508 kg [facility] Oxygen saturation in Arterial blood by Pulse oximetry 2022-06-16 15:22:00 99 /min [facility] Systolic blood pressure 2022-05-23 15:59:00 97 mm[Hg] [facility] Diastolic blood pressure 2022-05-23 15:59:00 68 mm[Hg] [facility] Heart rate 2022-05-23 15:59:00 96 /min [facility] Body temperature 2022-05-23 15:59:[address] [facility] Respiratory rate 2022-05-23 15:59:00 18 /min [facility] Body weight 2022-05-23 15:59:00 40.552 kg [facility] Oxygen saturation in Arterial blood by Pulse oximetry 2022-05-23 15:59:00 99 /min [facility] Systolic blood pressure 2022-05-21 18:28:00 102 mm[Hg] [facility] Diastolic blood pressure 2022-05-21 18:28:00 69 mm[Hg] [facility] Heart rate 2022-05-21 18:28:00 103 /min [facility] Body temperature 2022-05-21 18:28:[address] [facility] Respiratory rate 2022-05-21 18:28:00 16 /min [facility] Body weight 2022-05-21 18:28:00 41.051 kg [facility] Systolic blood pressure 2022-03-21 08:00:00 93 mm[Hg] [facility] Diastolic blood pressure 2022-03-21 08:00:00 61 mm[Hg] [facility] Heart rate 2022-03-21 08:00:00 57 /min [facility] Respiratory rate 2022-03-21 08:00:00 16 /min [facility] Oxygen saturation in Arterial blood by Pulse oximetry 2022-03-21 08:00:00 99 /min [facility] Body temperature 2022-03-21 04:47:[address] [facility] Body height 2022-03-21 04:47:00 160 cm [facility] Body weight 2022-03-21 04:47:00 40.597 kg [facility] BMI 2022-03-21 04:47:00 15.85 kg/m2 [facility] Body mass index (BMI) [Percentile] Per age and sex 2022-03-21 04:47:00 0.31 % [facility] Systolic blood pressure 2022-02-24 15:11:00 99 mm[Hg] [facility] Diastolic blood pressure 2022-02-24 15:11:00 67 mm[Hg] [facility] Heart rate 2022-02-24 15:11:00 92 /min [facility] Body temperature 2022-02-24 15:11:[address] [facility] Respiratory rate 2022-02-24 15:11:00 12 /min [facility] Body height 2022-02-24 15:11:00 158.3 cm [facility] Body weight 2022-02-24 15:11:00 42.366 kg [facility] BMI 2022-02-24 15:11:00 16.91 kg/m2 [facility] Body mass index (BMI) [Percentile] Per age and sex 2022-02-24 15:11:00 2.60 % [facility] Systolic blood pressure 2022-02-24 15:11:00 99 mm[Hg] [facility] Diastolic blood pressure 2022-02-24 15:11:00 67 mm[Hg] [facility] Heart rate 2022-02-24 15:11:00 92 /min [facility] Body temperature 2022-02-24 15:11:[address] [facility] Respiratory rate 2022-02-24 15:11:00 12 /min [facility] Body height 2022-02-24 15:11:00 158.3 cm [facility] Body weight 2022-02-24 15:11:00 42.366 kg [facility] BMI 2022-02-24 15:11:00 16.91 kg/m2 [facility] Body mass index (BMI) [Percentile] Per age and sex 2022-02-24 15:11:00 2.60 % [facility] Systolic blood pressure 2024-10-26 20:00:00 107 mm[Hg] [facility] Diastolic blood pressure 2024-10-26 20:00:00 57 mm[Hg] [facility] Heart rate 2024-10-26 20:00:00 92 /min [facility] Respiratory rate 2024-10-26 20:00:00 13 /min [facility] Oxygen saturation in Arterial blood by Pulse oximetry 2024-10-26 20:00:00 99 /min [facility] Body temperature 2024-10-26 17:13:[address] [facility] Body height 2024-10-26 17:13:00 160 cm [facility] Body weight 2024-10-26 17:13:00 45.36 kg [facility] BMI 2024-10-26 17:13:00 17.71 kg/m2 [facility] Procedures Procedure Date / Time Performed Performing Clinician Source POCT TEST 2024-10-26 18:28:[address] [facility] POCT TEST 2024-10-26 18:28:[address] [facility] HB ECG ROUTINE & RHYTHM STRIP 2024-10-26 18:17:[address] [facility] TROPONIN I 2024-10-26 18:13:00 Ganga Islas [facility] COMP. METABOLIC PANEL ([id number]) 2024-10-26 18:13:[address] [facility] CBC WITH DIFF 2024-10-26 18:13:00 Ganga Islas U [facility] URINALYSIS 2024-10-26 18:13:00 Ganga Islas Un [facility] INFLUENZA A/B RSV COVID NAAT 2024-10-26 18:13:[address] [facility] N-TERMINAL PRO-BNP 2024-10-26 18:13:[address] [facility] URINE DRUG (IMMUNOASSAY) - COMPREHENSIVE DRUG SCREEN W/O REFLEX 2024-10-26 18:13:[address] [facility] FENTANYL (IMMUNOASSAY) 2024-10-26 18:13:[address] [facility] INFLUENZA A/B RSV COVID NAAT 2024-10-26 18:13:[address] [facility] CBC WITH DIFF 2024-10-26 18:13:00 Ganga Islas U [facility] COMP. METABOLIC PANEL ([id number]) 2024-10-26 18:13:[address] [facility] TROPONIN I 2024-10-26 18:13:00 Ganga Islas Un [facility] N-TERMINAL PRO-BNP 2024-10-26 18:13:[address] [facility] URINALYSIS 2024-10-26 18:13:00 Ganga Islas Un [facility] URINE DRUG (IMMUNOASSAY) - COMPREHENSIVE DRUG SCREEN W/O REFLEX 2024-10-26 18:13:[address] [facility] FENTANYL (IMMUNOASSAY) 2024-10-26 18:13:[address] [facility] LAB ONLY COVID INTERPRETATION 2024-10-26 18:13:[address] [facility] XR CHEST 2 VW 2024-10-26 17:59:13 Ganga Islas U [facility] XR CHEST 2 VW 2024-10-26 17:59:13 Ganga Islas U [facility] MAGNESIUM 2024-08-30 11:08:00 Movpr, [facility] COMP. METABOLIC PANEL ([id number]) 2024-08-30 11:[facility]00 [facility]FF 2024-08-30 [facility]30 [facility] 2024-08-30 11:08:00 [facility] COMP. METABOLIC PANEL ([id number]) 2024-08-30 11:08:00 [facility] LEPTOSPIRA ANTIBODY 2024-08-30 11:08:00 [facility] MISCELLANEOUS SEND OUT TEST 2024-08-30 11:08:00 [facility] HEPATITIS C VIRUS (HCV) BY QUANTITATIVE NAAT 2024-08-29 12:25:00 [facility] CMV BY QUANTITATIVE NAAT 2024-08-29 12:25:00 [facility] EBV VIRUS BY QUANTITATIVE NAAT, PLASMA 2024-08-29 12:25:00 [facility] HEPATITIS B VIRUS (HBV) BY QUANTITATIVE NAAT 2024-08-29 12:25:00 [facility] HEPATITIS C VIRUS (HCV) BY QUANTITATIVE NAAT 2024-08-29 12:25:00 [facility] EBV VIRUS BY QUANTITATIVE NAAT, PLASMA 2024-08-29 12:25:00 [facility] CMV BY QUANTITATIVE NAAT, PLASMA 2024-08-29 12:25:00 [facility] 2024-[facility]-29 12:24[facility]00 [facility] 2024-08-29 12:24:00 [facility] MAG[facility]UM 2024-08-29 12:23:00 Vadim [facility] COMP. METABOLIC PANEL ([id number]) 2024-08-29 12:23:00 Vadim [facility] COMP. METABOLIC PANEL ([id number]) 2024-08-29 12:23:00 Vadim [facility] MAGNESIUM 2024-08-29 12:23:00 [facility] 2024-08-28 18:30:00 Quinton Fierro [facility] US GALL BLADDER 2024-08-28 18:30:00 Quinton Fierro [facility] MAGNESIUM 2024-08-28 08:46:00 Vadim [facility] COMP. METABOLIC PANEL ([id number]) 2024-08-28 08:46:00 Vadim [facility] CBC WITH DIFF 2024-08-28 08:46:00 Vadim [facility] COMP. METABOLIC PANEL ([id number]) 2024-08-28 08:46:00 Vadim [facility] CBC WITH DIFF 2024-08-28 08:46:[address] [facility] MAGNESIUM 2024-08-28 08:46:00 Vadim [facility] HEPATITIS B SURFACE ANTIBODY 2024-08-27 20:53:00 Vadim [facility] HCV ANTIBODY 2024-08-27 20:53:00 Vadim [facility] HCV ANTIBODY 2024-08-27 20:53:00 [facility]TIBODY 2024-08-27 20:53:00 Vadim [facility] HBC ANTIBODY (IGM & IGG) 2024-08-27 20:52:00 Fer [facility] HBC ANTIBODY (IGM & IGG) 2024-08-27 20:52:00 Vadim [facility] MAGNESIUM 2024-08-27 12:17:00 [facility] COMP. METABOLIC PANEL ([id number]) 2024-08-27 12:17:00 Vadim [facility] CBC WITH DIFF 2024-08-27 12:17:00 Fer [facility] HEPATITIS B SURFACE ANTIGEN 2024-08-27 12:17:00 Fer [facility] HIV 1/2 AG-AB WITH REFLEX 2024-08-27 12:17:00 Vadim [facility] CBC WITH DIFF 2024-08-27 12:17:00 Vadim [facility] MAGNESIUM 2024-08-27 12:17:00 Fer [facility] COMP. METABOLIC PANEL ([id number]) 2024-08-27 12:17:00 Vadim [facility] HEPATITIS B SURFACE ANTIGEN 2024-08-27 12:17:00 Fer [facility] HIV 1/2 AG-AB WITH REFLEX 2024-08-27 12:17:00 Vadim [facility] XR CHEST 2 VW 2024-08-26 22:30:29 [facility] XR CHEST 2 VW 2024-08-26 22:30:29 [facility] CEREBROSPINAL FLUID PROTEIN 2024-08-26 [facility]SE 2024-08-26 17:50[facility] 2024-08-26 17:50[facility]/WILD LIFE MANAGER SHUNT CULTURE 2024-08-26 17:50:00 Everette Fierro [facility] [place] VIRUS AB PANEL 2024-08-26 17:50:00 Vadim [facility] EXTRA TUBE CSF 2024-08-26 17:50:00 Xiomy [facility] CSF CULTURE 2024-08-26 17:50:00 Vadim [facility] MENINGITIS/ENCEPHALITIS PANEL BY PCR 2024-08-26 17:50:00 Vadim [facility] CEREBROSPINAL FLUID PROTEIN 2024-08-26 17:50:00 Vadim [facility] CEREBROSPINAL FLUID GLUCOSE 2024-08-26 17:50:00 Vadim [facility] CSF/WILD LIFE MANAGER SHUNT CULTURE 2024-08-26 17:50:00 Everette Fierro [facility] BODY FLUID MANUAL DIFF 2024-08-26 17:50:[address] [facility] MENINGITIS/ENCEPHALITIS PANEL BY PCR 2024-08-26 17:50:00 Vadim [facility] [place] VIRUS AB PANEL 2024-08-26 17:50:00 Vadim [facility] CSF CULTURE 2024-08-26 17:50:00 Vadim [facility] EXTRA TUBE CSF 2024-08-26 17:50:00 Neo Stau[facility] MAGNESIUM 2024-08-26 09:29:00 Vadim [facility] BASIC METABOLIC PANEL (NA, K, CL, CO2, GLUCOSE, BUN, CREATININE, CA) 2024-08-26 09:29:00 Vadim [facility] CBC WITH DIFF 2024-08-26 09:29:00 [facility] DIFF 2024-08-26 09:29:00 Vadim [facility] BASIC METABOLIC PANEL (NA, K, CL, CO2, GLUCOSE, BUN, CREATININE, CA) 2024-08-26 09:29:00 [facility]im [facility] MAGNESIUM 2024-08-26 09:29:[facility] 2024-08-25 18:47:30 Natasha Fierro [facility] CT HEAD WO CONTRAST 2024-08-25 18:47:30 Natasha Fierro [facility] MAGNESIUM 2024-08-25 14:23:00 Vadim [facility] BASIC METABOLIC PANEL (NA, K, CL, CO2, GLUCOSE, BUN, CREATININE, CA) 2024-08-25 14:23:00 Vadim [facility] BASIC METABOLIC PANEL (NA, K, CL, CO2, GLUCOSE, BUN, CREATININE, CA) 2024-08-25 14:23:00 Vadim [facility] MAGNESIUM 2024-08-25 14:23:00 Vadim [facility] CORTISOL AM 2024-08-25 14:21:00 Vadim [facility] CBC WITH DIFF 2024-08-25 14:21:00 [facility] WITH DIFF 2024-08-25 14:21:[address] [facility] CORTISOL AM 2024-08-25 14:21:00 Vadim [facility] CT ABDOMEN PELVIS W CONTRAST 2024-08-24 19:58:55 Vadim [facility] CT ABDOMEN PELVIS W CONTRAST 2024-08-24 19:58:55 Vadim [facility] BLOOD CULTURE SCREEN 2024-08-24 18:22:00 [facility] BLOOD CULTURE SCREEN 2024-08-24 18:22:00 Pablo [facility] CREATININE 2024-08-24 18:06:00 [facility] 2024-08-24 18:06:00 [facility] 2024-08-24 18:06:00 Pablo [facility] FERRITIN SERUM 2024-08-24 18:06:00 [facility] B12, LEVEL 2024-08-24 18:06[facility]00 [facility] 2024-08-24 18:06:00 Vadim [facility] IMMUNOGLOBULIN M 2024-08-24 18:06:00 Vadim [facility] FREE T4 2024-08-24 18:06:00 Fer [facility] THYROID STIMULATING HORMONE 2024-08-24 18:06:00 [facility] COMP. METABOLIC PANEL ([id number]) 2024-08-24 18:06:00 [facility] IRON PANEL 2024-08-24 18:06:00 Vadim [facility] DIFF CONSULT INTERPRETATION 2024-08-24 18:06:00 Vadim [facility] CBC WITH DIFF 2024-08-24 18:06[facility]TIB[facility] SCREEN 2024-08-24 18:06:00 Vadim [facility] TYPHUS FEVER AB, IGM 2024-08-24 18:06:00 [facility] ANTI-NUCLEAR ANTIBODY-PATHOLOGIST INTERPRETATION 2024-08-24 18:06:00 Vadim [facility] CREATININE 2024-08-24 18:06:00 Neo Stauffer [facility] CBC WITH DIFF 2024-08-24 18:06:00 [facility] COMP. METABOLIC PANEL (98764) 2024-08-24 18:06:00 [facility] MAGNESIUM 2024-08-24 [facility] HORMONE 2024-08-24 18:06:00 [facility] IMMUNOGLOBULIN M 2024-08-24 18:06:00 [facility] TYPH[facility] FEVER AB, IGG 2024-08-24 18:06:00 [facility] FREE T4 2024-08-24 18:06:00 Vadim [facility] DIFF CONSULT INTERPRETATION 2024-08-24 18:06:00 [facility] FERRITIN SERUM 2024-08-24 18:06:00 Quinton Fierro [facility] TRIGLYCERIDES 2024-08-24 18:06:00 Quinton [facility] VITAMIN B12, LEVEL 2024-08-24 18:06:00 Evan Fier[facility] FOLATE 2024-08-24 18:06:00 Vadim [facility] IRON PANEL 2024-08-24 18:06:00 [facility] ANTI-NUCLEAR ANTIBODY SCREEN 2024-08-24 18:06:00 [facility] ANTI-NUCLEAR ANTIBODY-PATHOLOGIST INTERPRETATION 2024-08-24 18:06:00 [facility] URINALYSIS 2024-08-24 18:04:00 Vadim [facility] URINALYSIS 2024-08-24 18:04:00 Fer [facility] BLOOD CULTURE SCREEN 2024-08-24 18:03:00 [facility] BLOOD CULTURE SCREEN 2024-08-24 18:03:00 Pablo [facility] URINALYSIS 2024 19:18:00 Jennifer Roche Un [facility] POCT TEST 2024 19:18:[address] [facility] INFLUENZA A/B RSV COVID NAAT 2024 19:18:[address] [facility] POCT TEST 2024 19:18:[address] [facility] URINALYSIS 2024 19:18:00 [facility] INFLUEN[facility] A/B RSV COVID NAAT 2024 19:18:[address] [facility] LAB ONLY COVID INTERPRETATION 2024 19:18:[address] [facility] ASSIGNMENT OF BENEFITS 2023-07-22 20:16:42 Docto r Unassigned, [place] [facility] MEDICATION CORRESPONDENCE 2023-05-18 05:01:00 Do ctor Unassigned, [place] [facility] POCT URINALYSIS 2023-02-27 00:00:[address] [facility] HB ECG ROUTINE & RHYTHM STRIP 2022-12-18 19:20:[address] [facility] VACCINATION OF A MINOR 2022-12-18 18:41:26 Docto r Unassigned, [place] [facility] PATIENT FINANCIAL POLICY 2022-12-02 18:50:43 Doctor Unassigned, [place] [facility] POCT MOLECULAR FLU 2022-09-10 20:39:[address] [facility] CONSENT/REFUSAL FOR DIAGNOSIS AND TREATMENT 2022-06-16 15:13:11 Doctor Unassigned, [place] [facility] ASSIGNMENT OF BENEFITS 2022-06-16 15:12:55 Docto r Unassigned, [place] [facility] POCT GRP A STREP (MOLECULAR) 2022-05-23 00:00:[address] [facility] COMP. METABOLIC PANEL (90409) 2022-03-21 06:40:[address] [facility] CBC WITH DIFF 2022-03-21 06:40:00 [facility] POCT TEST 2022-03-21 04:59:[address] [facility] URINALYSIS 2022-03-21 04:56:00 [facility] NOTICE OF PRIVACY PRACTICES 2022-03-21 04:39:52 Doctor Unassigned, [place] [facility] CONSENT/REFUSAL FOR DIAGNOSIS AND TREATMENT 2022-03-21 04:38:45 Doctor Unassigned, [place] [facility] IMMUNOGLOBULIN E, SERUM 2022-02-24 16:40:00 Kole Lugo [facility] IMMUNOGLOBULIN G A M PANEL 2022-02-24 16:40:[address] [facility] Encounters Start Date/Time End Date/Time Encounter Type Admission Type Attending [facility] Facility Care Department Encounter ID Source 2021-07-01 17:55:48 Emergency [facility] [id number] [facility] 2021-06-28 16:10:45 Emergency [facility] [id number] [facility] 2021-06-28 11:07:15 Emergency [facility] [id number] [facility] 2021-06-27 18:46:17 Emergency [facility] [id number] [facility] 2024-11-18 00:00:00 2024-12-24 18:19:35 Patient Secure MsIvonne Allred [facility] 1..840.114 350.1.13.10 4.2.7.2.686 [id number] 225 [id number] [facility] 2024-11-18 00:00:00 2024-11-18 14:44:59 Telephone Jose E Ordonez [facility] 1..840.114 350.1.13.10 4.2.7.2.686 [id number] [facility] 2024-11-18 14:30:00 2024-11-18 14:30:00 Outpatient R JOSE E ORDONEZ [facility] [id number] [facility] 2024-11-04 08:26:00 2024-11-04 11:26:00 Emergency ISREAL BELLAMY JOSEPH [facility] [[email or web address]] ERT [id number] [facility] 2024-10-28 00:00:00 2024-11-02 12:12:57 Telephone Ivonne Nayak [facility] 1.2.840.114 350.1.13.10 4.2.7.2.686 [id number] 225 [id number] [facility] 2024-10-28 00:00:00 2024-10-28 15:33:20 Patient Outreach ManzoSimona 1.2.840.1 30406.1.1 3.104.2.7 .3.868439 .8 [id number] [facility] 2024-10-26 11:14:00 2024-10-26 14:19:00 Emergency X GANGA ISLAS [facility] [[email or web address]] ERT [id number] [facility] 2024-10-26 11:14:00 2024-10-26 14:19:00 Emergency Ganga Islas 1.2.840.1 12450.1.1 3.104.2.7 .3.376602 .8 [id number] [facility] 2024-10-26 00:00:00 2024-10-26 10:50:40 Telephone Ivonne Nayak 1.2.840.1 60279.1.1 3.104.2.7 .3.804113 .8 [id number] [facility] 2024-10-26 09:50:00 2024-10-26 10:10:00 Office Visit Ivonne Nayak 1.2.840.1 00980.1.1 3.104.2.7 .3.919538 .8 [id number] [facility] 2024-10-26 09:50:00 2024-10-26 09:50:00 Outpatient R IVONNE NAYAK [facility] [id number] [facility] 2024-10-26 00:00:00 2024-10-26 00:00:00 Travel 1.2.840.1 78018.1.1 3.104.2.7 .3.895810 .8 1.2.840.114 350.1.13.10 4.2.7.3.698 [id number] [facility] 2024-10-19 00:00:00 2024-10-19 11:15:27 Letter (Out) Jeni Fuentes 1.2.840.1 01693.1.1 3.104.2.7 .3.350838 .8 [id number] [facility] 2024-09-21 14:10:00 2024-09-21 14:10:00 Outpatient R IVONNE NAYAK [facility] [id number] [facility] 2024-09-02 00:00:00 2024-09-02 15:38:07 Letter (Out) [facility], Infectious 1.2.840.1 81187.1.1 3.104.2.7 .3.891338 .8 [id number] [facility] 2024-08-24 10:20:00 2024-08-30 18:06:00 Inpatient U LEI GUTIERREZ [facility] [[email or web address]] SHANA [id number] [facility] 2024-08-24 10:20:00 2024-08-30 18:06:00 Hospital Encounter Rebeca Swan, Lei Ann 1.2.840.1 71928.1.1 3.104.2.7 .3.734611 .8 [id number] [facility] 2024-08-23 00:00:00 2024-08-23 12:28:12 Nurse Triage Melonie Scott 1.2.840.1 55270.1.1 3.104.2.7 .3.322798 .8 [id number] [facility] 2024 12:44:00 2024 15:38:00 Emergency X [facility]ENNIFER [facility] [id number] [facility] 2024 12:44:00 2024 15:38:00 Emergency Jennifer Roche 1.2.840.1 56098.1.1 3.104.2.7 .3.049022 .8 [id number] [facility] 2024 00:00:00 2024 11:00:04 Nurse Triage Josselyn Duran 1.2.840.1 73069.1.1 3.104.2.7 .3.989552 .8 [id number] [facility] 2024 00:00:00 2024 00:00:00 Travel 1.2.840.1 24469.1.1 3.104.2.7 .3.142906 .8 1.2.840.114 350.1.13.10 4.2.7.3.698 084.8 [id number] [facility] 2024-08-11 00:00:00 2024-08-11 08:38:47 Letter (Out) Sushma Sesay 1.2.840.1 87892.1.1 3.104.2.7 .3.520361 .8 [id number] [facility] 2024-08-11 08:20:00 2024-08-11 08:38:20 Office Visit Sushma Sesay 1.2.840.1 72744.1.1 3.104.2.7 .3.356686 .8 [id number] [facility] 2024-08-11 08:20:00 2024-08-11 08:38:20 Outpatient R SUSHMA SESAY [facility] [id number] [facility] 2024-08-11 00:00:00 2024-08-11 00:00:00 Travel 1.2.840.1 22794.1.1 3.104.2.7 .3.328279 .8 1.2.840.114 350.1.13.10 4.2.7.3.698 [id number] [facility] 2024-08-09 09:50:00 2024-08-09 09:50:00 Outpatient IVONNE TUTTLE [facility] [id number] [facility] 2024-06-06 13:00:00 2024-06-06 13:00:00 Outpatient R ASHLEY ANTHONY [facility] [id number] [facility] 2024-06-03 09:00:00 2024-06-03 09:00:00 Outpatient GREG BUNCH VIEN [facility] [id number] [facility] 2024-05-10 08:10:00 2024-05-10 08:51:35 Outpatient IVONNE TUTTLE [facility] [id number] [facility] 2024-05-10 08:10:00 2024-05-10 08:51:35 Office Visit Ivonne Nayak [facility] 1.2.840.114 350.1.13.10 4.2.7.2.686 [id number] 225 [id number] [facility] 2024-05-09 00:00:00 2024-05-09 16:30:03 Telephone Ivonne Nayak [facility] 1.2.840.114 350.1.13.10 4.2.7.2.686 [id number] 225 [id number] [facility] 2024-05-09 00:00:00 2024-05-09 08:54:04 Telephone Ivonne Nayak [facility] 1.2.840.114 350.1.13.10 4.2.7.2.686 [id number] 225 [id number] [facility] 2024-03-25 16:00:00 2024-03-25 16:00:00 Outpatient IVY TOMLINSON [facility] [id number] [facility] 2024-02-26 09:00:00 2024-02-26 09:35:27 Outpatient R GREG PATEL VIEN [facility] [id number] [facility] 2024-02-26 09:00:00 2024-02-26 09:35:27 Office Visit Greg Patel [facility] 1.2.840.114 350.1.13.10 4.2.7.2.686 [id number] [facility] 2024-02-15 11:00:00 2024-02-15 11:21:28 Outpatient R CASIE ONEIL LESLEY [facility] [id number] [facility] 2024-02-15 11:00:00 2024-02-15 11:21:28 Office Visit Casie Oneil [facility] 1.2.840.114 350.1.13.10 4.2.7.2.686 [id number] 225 [id number] [facility] 2024-02-15 00:00:00 2024-02-15 00:00:00 Patient Outreach Simona Manzo [facility] 1.2.840.114 350.1.13.10 4.2.7.2.686 [id number] 225 [id number] [facility] 2024-01-30 00:00:00 2024-02-01 09:39:57 Telephone Ivonne Nayak [facility] 1.2.840.114 350.1.13.10 4.2.7.2.686 [id number] 225 [id number] [facility] 2024-02-01 09:10:00 2024-02-01 09:10:00 Outpatient IVONNE TUTTLE [facility] [id number] [facility] 2024-01-27 09:10:00 2024-01-27 09:10:00 Outpatient IVONNE TUTTLE [facility] [id number] [facility] 2024-01-26 00:00:00 2024-01-26 14:22:43 Telephone Ivonne Nayak [facility] 1.840.114 350.1.13.10 4.2.7.2.686 [id number] 225 [id number] [facility] 2023-11-04 07:30:00 2023-11-04 07:30:00 Outpatient R IVONNE NAYAK [facility] [id number] [facility] 2023-10-21 15:10:00 2023-10-21 15:35:17 Outpatient IVONNE TUTTLE [facility] [id number] [facility] 2023-10-21 15:10:00 2023-10-21 15:35:17 Office Visit Ivonne Nayak [facility] 1.84.114 350.1.13.10 4.2.7.2.686 [id number] [facility] 2023-08-05 08:10:00 2023-08-05 08:40:57 Outpatient R IVONNE NAYAK [facility] [id number] [facility] 2023-08-05 08:10:00 2023-08-05 08:40:57 Office Visit Ivonne Nayak [facility] 1.840.114 350.1.13.10 4.2.7.2.686 [id number] 225 [id number] [facility] 2023-07-22 14:10:00 2023-07-22 15:06:30 Outpatient R IVONNE NAYAK [facility] [id number] [facility] 2023-07-22 14:10:00 2023-07-22 15:06:30 Office Visit Ivonne Nayak [facility] 1.840.114 350.1.13.10 4.2.7.2.686 [id number] 225 [id number] [facility] 2023-07-22 00:00:00 2023-07-22 00:00:00 Orders Only Doctor Unassigned, [place] [facility] 1.2.840.114 350.1.13.10 4.2.7.2.686 [id number] [facility] 2023-06-08 09:00:00 2023-06-08 09:20:00 Office Visit Casie Oneil [facility] 1.2.840.114 350.1.13.10 4.2.7.2.686 [id number] 225 [id number] [facility] 2023-06-08 09:00:00 2023-06-08 09:00:00 Outpatient CASIE PEDRAZA LESLEY [facility] [id number] [facility] 2023-06-01 13:30:00 2023-06-01 14:13:57 Outpatient IVONNE TUTTLE [facility] [id number] [facility] 2023-06-01 13:30:00 2023-06-01 14:13:57 Office Visit Ivonne Nayak [facility] 1.2.840.114 350.1.13.10 4.2.7.2.686 [id number] 225 [id number] [facility] 2023-05-18 00:00:00 2023-05-18 00:00:00 Orders Only Doctor Unassigned, [place] [facility] 1.2.840.114 350.1.13.10 4.2.7.2.686 [id number] [facility] 2023-04-16 15:00:00 2023-04-16 15:00:00 Outpatient CASIE PEDRAZA LESLEY [facility] [id number] [facility] 2023-03-30 12:50:00 2023-03-30 13:24:25 Outpatient R IVONNE NAYAK [facility] [id number] [facility] 2023-03-30 12:50:00 2023-03-30 13:24:25 Office Visit Ivonne Nayak [facility] 1.2.840.114 350.1.13.10 4.2.7.2.686 [id number] [facility] 2023-02-27 12:50:00 2023-02-27 13:19:56 Outpatient R IVONNE NAYAK [facility] [id number] [facility] 2023-02-27 12:50:00 2023-02-27 13:19:56 Office Visit Ivonne Nayak [facility] 1.2.840.114 350.1.13.10 4.2.7.2.686 [id number] 225 [id number] [facility] 2023-01-28 14:50:00 2023-01-28 15:35:03 Outpatient R IVONNE NAYAK [facility] [id number] [facility] 2023-01-28 14:50:00 2023-01-28 15:35:03 Office Visit Ivonne Nayak [facility] 1.2.840.114 350.1.13.10 4.2.7.2.686 [id number] 225 [id number] [facility] 2023-01-27 08:10:00 2023-01-27 08:10:00 Outpatient R IVONNE NAYAK [facility] [id number] [facility] 2023-01-21 13:30:00 2023-01-21 14:23:13 Outpatient R IVONNE NAYAK [facility] [id number] [facility] 2023-01-21 13:30:00 2023-01-21 14:23:13 Office Visit Ivonne Nayak [facility] 1.2.840.114 350.1.13.10 4.2.7.2.686 [id number] 225 [id number] [facility] 2023-01-21 09:10:00 2023-01-21 09:10:00 Outpatient IVONNE TUTTLE [facility] [id number] [facility] 2023-01-16 00:00:00 2023-01-16 00:00:00 Ivy Raines [facility] 1.2.840.114 350.1.13.10 4.2.7.2.686 [id number] 225 [id number] [facility] 2023-01-02 08:50:00 2023-01-02 09:45:53 Outpatient IVONNE TUTTLE [facility] [id number] [facility] 2023-01-02 08:50:00 2023-01-02 09:45:53 Office Visit Ivonne Nayak [facility] 1.2840.114 350.1.13.10 4.2.7.2.686 [id number] [facility] 2023-01-02 00:00:00 2023-01-02 00:00:00 Letter (Out) Ivonne Nayak [facility] 1.2.840.114 350.1.13.10 4.2.7.2.686 [id number] 225 [id number] [facility] 2022-12-22 06:47:00 2022-12-22 23:59:00 Hospital Encounter Kadi Romero [facility] 1.2.840.114 350.1.13.10 4.2.7.2.686 [id number] [facility] 2022-12-22 00:00:00 2022-12-22 23:59:00 Outpatient KADI VIZCARRA [facility] [[email or web address]] ACO [id number] [facility] 2022-12-19 00:00:00 2022-12-19 00:00:00 Patient Outreach Janny Prater [facility] 1.2.840.114 350.1.13.10 4.2.7.2.686 [id number] 225 [id number] [facility] 2022-12-18 13:40:00 2022-12-18 14:51:11 Outpatient R CARLYN ZAIDI [facility] [id number] [facility] 2022-12-18 13:40:00 2022-12-18 14:51:11 Office Visit Carlyn zaidi [facility] 1.2.840.114 350.1.13.10 4.2.7.2.686 [id number] 225 [id number] [facility] 2022-12-18 00:00:00 2022-12-18 00:00:00 Orders Only Doctor Unassigned, [place] [facility] 1.2.840.114 350.1.13.10 4.2.7.2.686 [id number] [facility] 2022-12-02 14:00:00 2022-12-02 14:08:05 Outpatient R LÁZARO SUSHMA [facility] [id number] [facility] 2022-12-02 14:00:00 2022-12-02 14:08:05 Office Visit Sushma Sesay [facility] 1.2.840.114 350.1.13.10 4.2.7.2.686 [id number] 225 [id number] [facility] 2022-12-02 00:00:00 2022-12-02 00:00:00 Orders Only Doctor Unassigned, [place] [facility] 1.2.840.114 350.1.13.10 4.2.7.2.686 [id number] [facility] 2022-09-10 14:40:00 2022-09-10 15:00:00 Office Visit Sushma Sesay [facility] 1.2.840.114 350.1.13.10 4.2.7.2.686 [id number] 225 [id number] [facility] 2022-09-10 14:40:00 2022-09-10 14:40:00 [id number] 2022-09-10 00:00:00 2022-09-10 00:00:00 Letter (Out) Lázaro [facility] 1.2.840.114 350.1.13.10 4.2.7.2.686 [id number] [facility] 2022-06-16 10:20:00 2022-06-16 11:25:46 Outpatient R CARLYN ZAIDI [facility] [id number] [facility] 2022-06-16 10:20:00 2022-06-16 11:25:46 Office Visit Mary-David zaidi [facility] 1.2.840.114 350.1.13.10 4.2.7.2.686 [id number] [facility] 2022-06-16 00:00:00 2022-06-16 00:00:00 Orders Only Doctor Unassigned, [place] [facility] 1.2.840.114 350.1.13.10 4.2.7.2.686 [id number] [facility] 2022-06-16 00:00:00 2022-06-16 00:00:00 Telephone Carlyn zaidi [facility] 1.2.840.114 350.1.13.10 4.2.7.2.686 [id number] 225 [id number] [facility] 2022-06-16 00:00:00 2022-06-16 00:00:00 Letter (Out) Carlyn zaidi [facility] 1.2.840.114 350.1.13.10 4.2.7.2.686 [id number] 225 [id number] [facility] 2022-06-16 00:00:00 2022-06-16 00:00:00 Telephone Alejo Lloyd [facility] 1.2.840.114 350.1.13.10 4.2.7.2.686 [id number] [facility] 2022-06-03 00:00:00 2022-06-03 00:00:00 Telephone Alejo Lloyd [facility] 1.2.840.114 350.1.13.10 4.2.7.2.686 [id number] [facility] 2022-05-30 00:00:00 2022-05-30 00:00:00 Telephone Alejo Lloyd [facility] 1.2.840.114 350.1.13.10 4.2.7.2.686 [id number] [facility] 2022-05-29 00:00:00 2022-05-29 00:00:00 Telephone Alejo Lloyd [facility] 1.2.840.114 350.1.13.10 4.2.7.2.686 [id number] [facility] 2022-05-23 11:00:00 2022-05-23 11:43:52 Outpatient R CARLYN ZAIDI [facility] [id number] [facility] 2022-05-23 11:00:00 2022-05-23 11:43:52 Office Visit Carlyn zaidi [facility] 1.2.840.114 350.1.13.10 4.2.7.2.686 [id number] 225 [id number] [facility] 2022-05-23 00:00:00 2022-05-23 00:00:00 [facility] (Out[facility] 1.2.840.114 350.1.13.10 4.2.7.2.686 [id number] [facility] 2022-05-23 00:00:00 2022-05-23 00:00:00 Letter (Out) Carlyn zaidi [facility] 1.2.840.114 350.1.13.10 4.2.7.2.686 [id number] [facility] 2022-05-21 13:20:00 2022-05-21 13:46:44 Outpatient R L[facility]ZARO [facility] [id number] [facility] 2022-05-21 13:20:00 2022-05-21 13:46:44 Office Visit [facility] 1.2.840.114 350.1.13.10 4.2.7.2.686 [id number] 225 [id number] [facility] 2022-05-21 00:00:00 2022-05-21 00:00:00 Letter (Out) Lázaro [facility] 1.2.840.114 350.1.13.10 4.2.7.2.686 [id number] 225 [id number] [facility] 2022-05-21 00:00:00 2022-05-21 00:00:00 Telephone Alejo Lloyd [email or web address] [place] 1.2.840.114 350.1.13.10 4.2.7.2.686 [id number] 147 [id number] [facility] 2022-03-20 23:51:00 2022-03-21 03:03:00 Emergency X RICARDO SEVERION [facility] [[email or web address] ERT [id number] [facility] 2022-03-20 23:51:00 2022-03-21 03:03:00 Emergency Ricardo Severino S [facility] 1.2.840.114 350.1.13.10 4.2.7.2.686 [id number] [facility] 2022-03-20 00:00:00 2022-03-20 00:00:00 Orders Only Doctor Unassigned, [place] [facility] 1.2.840.114 350.1.13.10 4.2.7.2.686 [id number] [facility] 2022-02-28 00:00:00 2022-02-28 00:00:00 Telephone PremaAlejo haile Romie [facility] 1.2.840.114 350.1.13.10 4.2.7.2.686 [id number] [facility] 2022-02-26 00:00:00 2022-02-26 00:00:00 Telephone Hanna Jc [facility] 1.2.840.114 350.1.13.10 4.2.7.2.686 [id number] [facility] 2022-02-24 10:30:00 2022-02-24 11:00:00 Office Visit Alejo Lloyd [facility] 1.2.840.114 350.1.13.10 4.2.7.2.686 [id number] 147 [id number] [facility] 2022-02-24 10:30:00 2022-02-24 11:00:00 Office Visit NaylorAlejo haile [facility] 1.2.840.114 350.1.13.10 4.2.7.2.686 [id number] [facility] 2022-02-24 10:30:00 2022-02-24 10:30:00 Outpatient R ALEJO LLOYD [facility] [id number] [facility] 2022-02-24 10:30:00 2022-02-24 10:30:00 Outpatient R ALEJO LLOYD [facility] [id number] [facility] 2022-02-24 10:30:00 2022-02-24 10:30:00 Outpatient R PREMARUSSELL HAILEMERRY [facility] [id number] [facility] 2022-01-30 09:00:00 2022-01-30 09:00:00 Outpatient R LÁZARO SUSHMA [facility] [id number] [facility] 2022-01-14 00:00:00 2022-01-14 00:00:00 Telephone Prema Russellmerry Rafael Romie [facility] [[email or web address] [place] 1.2.840.114 350.1.13.10 4.2.7.2.686 [id number] [facility] 2022-01-01 00:00:00 2022-01-01 00:00:00 Telephone Lázaro Sushma [facility] 1.2.840.114 350.1.13.10 4.2.7.2.686 [id number] 225 [id number] [facility] 2021-12-30 08:20:00 2021-12-30 08:40:00 Office Visit Lázaro, Sushma [facility] 1.2.840.114 350.1.13.10 4.2.7.2.686 [id number] 225 [id number] [facility] 2021-12-30 08:20:00 2021-12-30 08:20:00 Outpatient R LÁZARO SUSHMA [facility] [id number] [facility] 2021-12-30 00:00:00 2021-12-30 00:00:00 Letter (Out) Ivonne Nayak [facility] 1.2.840.114 350.1.13.10 4.2.7.2.686 [id number] 225 [id number] [facility] 2021-12-09 09:00:00 2021-12-09 09:32:26 Outpatient R SUSHMA SESAY [facility] [id number] [facility] 2021-12-09 09:00:00 2021-12-09 09:32:26 Office Visit Sushma Sesay [facility] 1.2.840.114 350.1.13.10 4.2.7.2.686 [id number] 225 [id number] [facility] 2021-12-09 09:00:00 2021-12-09 09:32:26 Outpatient R LÁZARO SUSHMA [facility] [id number] [facility] 2021-12-09 00:00:00 2021-12-09 00:00:00 Letter (Out) Lázaro Sushma [facility] 1.2840.114 350.1.13.10 4.2.7.2.686 [id number] 225 [id number] [facility] 2021-11-29 15:30:00 2021-11-29 15:49:23 Outpatient R IVONNE NAYAK [facility] [id number] [facility] 2021-11-29 15:30:00 2021-11-29 15:49:23 Office Visit Ivonne Nayak [facility] 1.2840.114 350.1.13.10 4.2.7.2.686 [id number] 225 [id number] [facility] 2021-11-29 00:00:00 2021-11-29 00:00:00 Letter (Out) Ivonne Nayak [facility] 1.2.840.114 350.1.13.10 4.2.7.2.686 [id number] 225 [id number] [facility] 2021-11-27 00:00:00 2021-11-27 00:00:00 Telephone Ivonne Nayak [facility] 1.2.840.114 350.1.13.10 4.2.7.2.686 [id number] [facility] 2021-11-18 09:00:00 2021-11-18 11:00:05 Office Visit Christiano Hartman [facility] 1.114 350.1.13.10 4.2.7.2.686 [id number] [facility] 2021-11-18 09:00:00 2021-11-18 11:00:05 Outpatient R CHRISTIANO HARTMAN [facility] [id number] [facility] 2021-11-18 09:00:00 2021-11-18 09:00:00 Outpatient R CHRISTIANO HARTMAN [facility] [id number] [facility] 2021-11-18 09:00:00 2021-11-18 09:00:00 Outpatient R CHRISTIANO HARTMAN [facility] [id number] [facility] 2021-11-18 09:00:00 2021-11-18 09:00:00 Outpatient R CHRISTIANO HARTMAN [facility] [id number] [facility] 2021-11-18 09:00:00 2021-11-18 09:00:00 Outpatient R CHRISTIANO HARTMAN [facility] [id number] [facility] 2021-11-18 09:00:00 2021-11-18 09:00:00 Outpatient R CHRISTIANO HARTMAN [facility] [id number] [facility] 2021-11-18 09:00:00 2021-11-18 09:00:00 Outpatient R CHRISTIANO HARTMAN [facility] [id number] [facility] 2021-11-18 00:00:00 2021-11-18 00:00:00 Letter (Out) Christiano Hartman [facility] 1.840.114 350.1.13.10 4.2.7.2.686 [id number] [facility] 2021-11-18 00:00:00 2021-11-18 00:00:00 Letter (Out) Christiano Hartman [facility] 1.840.114 350.1.13.10 4.2.7.2.686 [id number] [facility] 2021-11-18 00:00:00 2021-11-18 00:00:00 Orders Only Doctor Unassigned, [place] [facility] 1.840.114 350.1.13.10 4.2.7.2.686 [id number] [facility] 2021-10-30 08:50:00 2021-10-30 09:19:34 Outpatient R IVONNE NAYAK [facility] [id number] [facility] 2021-10-30 08:50:00 2021-10-30 09:19:34 Office Visit Ivonne Nayak [facility] 1.0.114 350.1.13.10 4.2.7.2.686 [id number] 225 [id number] [facility] 2021-10-30 00:00:00 2021-10-30 00:00:00 Letter (Out) Ivonne Nayak [facility] 1.0.114 350.1.13.10 4.2.7.2.686 [id number] [facility] 2021-10-09 09:10:00 2021-10-09 10:00:26 Outpatient R IVONNE NAYAK [facility] [id number] [facility] 2021-10-09 09:10:00 2021-10-09 10:00:26 Office Visit Ivonne Nayak [facility] 1.840.114 350.1.13.10 4.2.7.2.686 [id number] [facility] 2021-10-09 09:10:00 2021-10-09 10:00:26 Outpatient IVONNE TUTTLE [facility] [id number] [facility] 2021-09-13 10:40:00 2021-09-13 11:02:02 Outpatient YENI MORELAND [facility] [id number] [facility] 2021-09-13 10:40:00 2021-09-13 11:02:02 Office Visit Yeni Reina [facility] 1.2.840.114 350.1.13.10 4.2.7.2.686 [id number] [facility] 2021-09-13 10:40:00 2021-09-13 11:02:02 Outpatient YENI MORELAND [facility] [id number] [facility] 2021-09-13 10:40:00 2021-09-13 11:02:02 Outpatient YENI MORELAND [facility] [id number] [facility] 2021-09-13 00:00:00 2021-09-13 00:00:00 Orders Only Doctor Unassigned, [place] [facility] 1.2.840.114 350.1.13.10 4.2.7.2.686 [id number] [facility] 2021-09-11 13:00:00 2021-09-11 13:23:13 Office Visit Zain Rosas [facility] 1.2.840.114 350.1.13.10 4.2.7.2.686 [id number] [facility] 2021-09-11 13:00:00 2021-09-11 13:23:13 Outpatient ZAIN SEPULVEDA [facility] [id number] [facility] 2021-09-11 13:00:00 2021-09-11 13:23:13 Outpatient ZAIN SEPULVEDA [facility] [id number] [facility] 2021-09-11 13:00:00 2021-09-11 13:00:00 Outpatient R ZAIN ROSAS [facility] [id number] [facility] 2021-09-11 00:00:00 2021-09-11 00:00:00 Letter (Out) Zain Rosas [facility] 1.2.840.114 350.1.13.10 4.2.7.2.686 [id number] [facility] 2021-08-12 08:49:00 2021-08-12 10:08:00 Emergency X JENNIFER ROCHE [facility] [[email or web address] ERT [id number] [facility] 2021-08-12 08:49:00 2021-08-12 10:08:00 Emergency Jennifer Roche [facility] 1.2.840.114 350.1.13.10 4.2.7.2.686 [id number] [facility] 2021-08-12 08:49:00 2021-08-12 10:08:00 Emergency X JENNIFER ROCHE [facility] [[email or web address]] ERT [id number] [facility] 2021-08-12 08:49:00 2021-08-12 10:08:00 Emergency X JENNIFER ROCHE [facility] [[email or web address]] ERT [id number] [facility] 2021-08-12 08:49:00 2021-08-12 10:08:00 Emergency X JENNIFER ROCHE [facility] [[email or web address]] ERT [id number] [facility] 2021-07-05 09:15:00 2021-07-05 12:26:00 Emergency X Jessica ORTEGA [facility] [[email or web address]] ERT [id number] [facility] 2021-07-05 09:15:00 2021-07-05 12:26:00 Emergency Jessica Ortega [facility] 1.2.840.114 350.1.13.10 4.2.7.2.686 [id number] [facility] 2021-07-01 08:30:00 2021-07-01 08:53:10 Outpatient R YAMILKANE IVONNE [facility] [id number] [facility] 2021-07-01 08:21:58 2021-07-01 08:53:10 Office Visit AngelicaIvonne Hernandez Orlin [facility] 1.2.840.114 350.1.13.10 4.2.7.2.686 [id number] 225 [id number] [facility] 2021-07-01 00:00:00 2021-07-01 00:00:00 Letter (Out) Ivonne Nayak [facility] 1.2.840.114 350.1.13.10 4.2.7.2.686 [id number] [facility] 2021-06-12 08:12:56 2021-06-12 09:00:36 Office Visit Ivonne Nayak [facility] 1.2.840.114 350.1.13.10 4.2.7.2.686 [id number] [facility] 2021-06-12 08:30:00 2021-06-12 08:30:00 Outpatient R NANDAIVONNE WELSH [facility] [id number] [facility] 2021-06-12 00:00:00 2021-06-12 00:00:00 Orders Only Doctor Unassigned, [place] [facility] 1.2.840.114 350.1.13.10 4.2.7.2.686 [id number] [facility] 2021-06-12 00:00:00 2021-06-12 00:00:00 Letter (Out) Ivonne Nayak [facility] 1.2.840.114 350.1.13.10 4.2.7.2.686 [id number] [facility] 2021-05-20 10:37:41 2021-05-20 11:18:33 Office Visit Malini Ivonne Orlin [facility] 1.2.840.114 350.1.13.10 4.2.7.2.686 [id number] [facility] 2021-05-20 10:50:00 2021-05-20 10:50:00 Outpatient R IVONNE NAYAK [facility] [id number] [facility] 2021-05-20 00:00:00 2021-05-20 00:00:00 Letter (Out) Malini Ivonne Ordaz [facility] 1.2.840.114 350.1.13.10 4.2.7.2.686 [id number] 225 [id number] [facility] 2021-05-20 00:00:00 2021-05-20 00:00:00 Letter (Out) Ivonne Nayak [facility] 1.2.840.114 350.1.13.10 4.2.7.2.686 [id number] [facility] 2021-05-17 10:50:00 2021-05-17 10:50:00 Outpatient R IVONNE NAYAK [facility] [id number] [facility] 2021-04-30 15:18:22 2021-04-30 16:18:22 Nurse Visit Therapy, Chuck Escalona [facility] 1.2840.114 350.1.13.10 4.2.7.2.686 [id number] [facility] 2021-04-30 15:18:22 2021-04-30 16:18:22 Nurse Visit Therapy, Chuck Armenta [facility] 1.2.840.114 350.1.13.10 4.2.7.2.686 [id number] [facility] 2021-04-30 15:30:00 2021-04-30 15:30:00 Outpatient R HARMAN ESCALONA [facility] [id number] [facility] 2021-04-25 13:20:00 2021-04-25 13:20:00 Outpatient R GIGISUSHMA MCKAY [facility] [id number] [facility] 2021-04-24 09:03:00 2021-04-24 12:06:00 Emergency Harman [facility] 1.2.840.114 350.1.13.10 4.2.7.2.686 [id number] [facility] 2021-04-24 09:03:00 2021-04-24 12:06:00 Emergency [facility] 1.2.840.114 350.1.13.10 4.2.7.2.686 [id number] [facility] 2021-04-08 11:12:30 2021-04-08 12:13:30 Office Visit Yeni Reina [facility] 1.2.840.114 350.1.13.10 4.2.7.2.686 [id number] [facility] 2021-04-08 11:20:00 2021-04-08 11:20:00 Outpatient R YENI RIENA [facility] [id number] [facility] 2021-03-25 08:33:34 2021-03-25 09:37:23 Office Visit Yeni Reina [facility] 1.2.840.114 350.1.13.10 4.2.7.2.686 [id number] [facility] 2021-03-25 08:40:00 2021-03-25 08:40:00 Outpatient R YENI REINA [facility] [id number] [facility] 2021-03-25 08:40:00 2021-03-25 08:40:00 Outpatient R YENI REINA [facility] [id number] [facility] 2021-03-15 08:56:12 2021-03-15 10:15:11 Office Visit Yeni Reina [facility] 1.2.840.114 350.1.13.10 4.2.7.2.686 [id number] [facility] 2021-03-15 09:00:00 2021-03-15 09:00:00 Outpatient R YENI REINA [facility] [id number] [facility] 2021-03-15 00:00:00 2021-03-15 00:00:00 Letter (Out) Yeni Reina [facility] 1.2.840.114 350.1.13.10 4.2.7.2.686 [id number] [facility] 2021-02-05 00:00:00 2021-02-05 00:00:00 Telephone Alejo Lloyd Rafael [facility] [place] 1.2.840.114 350.1.13.10 4.2.7.2.686 [id number] [facility] 2021-02-01 00:00:00 2021-02-01 00:00:00 Telephone Ivonne Nayak [facility] 1.2.840.114 350.1.13.10 4.2.7.2.686 [id number] 225 [id number] [facility] 2020-12-10 12:37:56 2020-12-10 13:10:49 Office Visit Ivonne Nayak [facility] 1.2.840.114 350.1.13.10 4.2.7.2.686 [id number] [facility] 2020-12-10 12:50:00 2020-12-10 12:50:00 Outpatient IVONNE TUTTLE [facility] [id number] [facility] 2020-11-21 00:00:00 2020-11-21 00:00:00 Telephone Alejo Lloyd [facility] 1.2.840.114 350.1.13.10 4.2.7.2.686 [id number] [facility] 2020-11-09 00:00:00 2020-11-09 00:00:00 Telephone Alejo Lloyd [facility] 1.2840.114 350.1.13.10 4.2.7.2.686 [id number] [facility] 2020-11-08 10:00:00 2020-11-08 10:00:00 Outpatient CHRISTIANO LE [facility] [id number] [facility] 2020-11-08 00:00:00 2020-11-08 00:00:00 Letter (Out) Doctor Unassigned, [place] [facility] 1.2840.114 350.1.13.10 4.2.7.2.686 [id number] [facility] 2020-10-22 14:40:00 2020-10-22 14:40:00 Outpatient YORDAN MCKEON [facility] [id number] [facility] 2020-10-22 09:22:20 2020-10-22 09:38:15 Nurse Visit Nurse, Yordan Duarte Charles [facility] 1.2840.114 350.1.13.10 4.2.7.2.686 [id number] [facility] 2020-10-22 00:00:00 2020-10-22 00:00:00 Letter (Out) Reinaldo Yordan Soto [facility] 1.2840.114 350.1.13.10 4.2.7.2.686 [id number] [facility] 2020-10-19 00:00:00 2020-10-19 00:00:00 Telephone Alejo Lloyd Romie [facility] 1.2.840.114 350.1.13.10 4.2.7.2.686 [id number] [facility] 2020-10-10 00:00:00 2020-10-10 00:00:00 Telephone Alejo Lloyd [facility] [place] 1.2.840.114 350.1.13.10 4.2.7.2.686 [id number] [facility] 2020-10-04 10:00:00 2020-10-04 10:00:00 Outpatient CHRISTIANO LE [facility] [id number] [facility] 2020-10-02 10:30:00 2020-10-02 10:30:00 Outpatient SEBASTIEN LANDEROS [facility] [id number] [facility] 2020-10-02 00:00:00 2020-10-02 00:00:00 Orders Only Doctor Unassigned, [place] [facility] 1.2.840.114 350.1.13.10 4.2.7.2.686 [id number] [facility] 2020-09-28 00:00:00 2020-09-28 00:00:00 Telephone Claudia Johnson [facility] 1.2.840.114 350.1.13.10 4.2.7.2.686 [id number] [facility] 2020-09-26 00:00:00 2020-09-26 00:00:00 Telephone Alejo Lloyd Romie [facility] 1.2.840.114 350.1.13.10 4.2.7.2.686 [id number] [facility] 2020-09-26 00:00:00 2020-09-26 00:00:00 Telephone Ivonne Nayak [facility] 1.2.840.114 350.1.13.10 4.2.7.2.686 [id number] [facility] 2020-09-25 00:00:00 2020-09-25 00:00:00 Letter (Out) Ivonne Nayak [facility] 1.2.840.114 350.1.13.10 4.2.7.2.686 [id number] [facility] 2020-09-24 13:40:00 2020-09-24 13:40:00 Outpatient YORDAN MCKEON [facility] [id number] [facility] 2020-09-24 09:33:13 2020-09-24 09:53:13 Nurse Visit Nurse, [facility] Yordan Self [facility] 1.2.840.114 350.1.13.10 4.2.7.2.686 [id number] [facility] 2020-09-24 00:00:00 2020-09-24 00:00:00 Letter (Out) Yordan Self [facility] 1.2.840.114 350.1.13.10 4.2.7.2.686 [id number] [facility] 2020-09-24 00:00:00 2020-09-24 00:00:00 Telephone Ivonne Nayak [facility] 1.2.840.114 350.1.13.10 4.2.7.2.686 [id number] [facility] 2020-09-18 00:00:00 2020-09-18 00:00:00 Telephone Ivonne Nayak [facility] 1.2.840.114 350.1.13.10 4.2.7.2.686 [id number] [facility] 2020-09-14 00:00:00 2020-09-14 00:00:00 Telephone Claudia Johnson [facility] 1.2.840.114 350.1.13.10 4.2.7.2.686 [id number] [facility] 2020-09-14 00:00:00 2020-09-14 00:00:00 Telephone Claudia Johnson [facility] 1.2.840.114 350.1.13.10 4.2.7.2.686 [id number] [facility] 2020-09-11 00:00:00 2020-09-11 00:00:00 Telephone Ivonne Nayak [facility] 1.2.840.114 350.1.13.10 4.2.7.2.686 [id number] [facility] 2020-09-10 10:31:00 2020-09-10 11:01:00 Office Visit Alejo Lloyd Romie [facility] 1.2.840.114 350.1.13.10 4.2.7.2.686 [id number] [facility] 2020-09-10 08:01:22 2020-09-10 08:55:15 Office Visit Ivonne Nayak [facility] 1.2.840.114 350.1.13.10 4.2.7.2.686 [id number] [facility] 2020-09-10 08:10:00 2020-09-10 08:10:00 Outpatient R IVONNE NAYAK [facility] [id number] [facility] 2020-09-10 00:00:00 2020-09-10 00:00:00 Letter (Out) Ivonne Nayak [facility] 1.2.840.114 350.1.13.10 4.2.7.2.686 [id number] [facility] 2020-09-10 00:00:00 2020-09-10 00:00:00 Letter (Out) Ivonne Nayak [facility] 1.2.840.114 350.1.13.10 4.2.7.2.686 [id number] [facility] 2020-09-10 00:00:00 2020-09-10 00:00:00 Letter (Out) Alejo Lloyd Romie [email or web address] [place] 1.2.840.114 350.1.13.10 4.2.7.2.686 [id number] [facility] 2020-09-07 10:00:00 2020-09-07 10:00:00 Outpatient ALEJO AMOS [facility] [id number] [facility] 2020-09-03 13:34:57 2020-09-03 14:19:15 Office Visit Yeni Reina [facility] 1.2.840.114 350.1.13.10 4.2.7.2.686 [id number] [facility] 2020-09-03 13:40:00 2020-09-03 13:40:00 Outpatient YENI MORELAND [facility] [id number] [facility] 2020-08-27 08:50:00 2020-08-27 08:50:00 Outpatient IVONNE TUTTLE [facility] [id number] [facility] 2020-08-21 09:25:47 2020-08-21 09:46:57 Nurse Visit Nurse, Jazz Bucio [facility] 1.2.840.114 350.1.13.10 4.2.7.2.686 [id number] 2020-08-21 09:25:47 2020-08-21 09:46:57 Nurse Visit Nurse, Ivonne Wesley [facility] 1.20.114 350.1.13.10 4.2.7.2.686 [id number] [facility] 2020-08-21 09:30:00 2020-08-21 09:30:00 Outpatient [facility] [id number] [facility] 2020-06-20 12:49:20 2020-06-20 13:58:11 Office Visit Ivonne Nayak [facility] 1.20.114 350.1.13.10 4.2.7.2.686 [id number] [facility] 2020-06-20 12:49:20 2020-06-20 13:58:11 Office Visit Ivonne Nayak [facility] 1.0.114 350.1.13.10 4.2.7.2.686 [id number] 2020-06-20 13:10:00 2020-06-20 13:10:00 Outpatient [facility]ONNE [facility] [id number] [facility] 2020-05-21 08:23:28 2020-05-21 08:32:31 Nurse Visit Nurse, Ivonne Wesley [facility] 1.2114 350.1.13.10 4.2.7.2.686 [id number] [facility] 2020-05-21 08:20:00 2020-05-21 08:20:00 Outpatient [facility]ONNE [facility] [id number] [facility] 2020-05-21 00:00:00 2020-05-21 00:00:00 Orders Only Doctor Unassigned, [place] [facility] 1.0.114 350.1.13.10 4.2.7.2.686 [id number] [id number] [facility] 2020-05-14 13:30:00 2020-05-14 13:30:00 Outpatient IVONNE [facility] [id number] [facility] 2020-05-06 15:21:00 2020-05-06 19:19:00 Emergency X CHEN SHIELDS [facility] [[email or web address]] ERT [id number] [facility] 2020-05-06 15:21:00 2020-05-06 19:19:00 Emergency Chen Shield[facility] 1.2.840.114 350.1.13.10 4.2.7.2.686 [id number] [facility] 2020-05-06 00:00:00 2020-05-06 00:00:00 Orders Only Doctor Unassigned, [place] [facility] 1.840.114 350.1.13.10 4.2.7.2.686 [id number] [facility] 2020-04-05 21:49:00 2020-04-06 00:26:00 Emergency Jeison Lui [facility] 1.2840.114 350.1.13.10 4.2.7.2.686 [id number] [facility] 2020-02-20 09:02:57 2020-02-20 09:22:57 Nurse Visit Nurse, Ivonne Wesley [facility] 1.0.114 350.1.13.10 4.2.7.2.686 [id number] [facility] 2020-02-20 09:00:00 2020-02-20 09:00:00 Outpatient [facility]ONNE [facility] [id number] [facility] 2020-02-15 07:35:19 2020-02-15 08:48:51 Office Visit Ivonne Nayak [facility] 1.2.840.114 350.1.13.10 4.2.7.2.686 [id number] [facility] 2020-02-15 07:50:00 2020-02-15 07:50:00 Outpatient R IVONNE NAYAK [facility] [id number] [facility] 2019-12-23 15:30:00 2019-12-23 15:30:00 Outpatient R IVONNE NAYAK [facility] [id number] [facility] 2019-12-23 12:47:38 2019-12-23 13:07:38 Telemedici ne Visit Ivonne Nayak [facility] 1..114 350.1.13.10 4.2.7.2.686 [id number] [facility] 2019-12-22 01:51:19 2019-12-22 02:57:00 Emergency X CHRISTINAO DISLA [facility] [[email or web address]] ERT [id number] [facility] 2019-12-22 01:51:19 2019-12-22 02:57:00 Emergency DislaNathanmichelle Franz [facility] 1.0.114 350.1.13.10 4.2.7.2.686 [id number] [facility] 2019-12-22 00:00:00 2019-12-22 00:00:00 Telephone Ivonne Nayak [facility] 1.2840.114 350.1.13.10 4.2.7.2.686 [id number] [facility] 2019-10-04 21:24:15 2019-10-04 23:11:00 Emergency X RICARDO SEVERINO [facility] [[email or web address]] ERT [id number] [facility] 2019-10-04 21:24:15 2019-10-04 23:11:00 Emergency Ricardo Severino [facility] 1.840.114 350.1.13.10 4.2.7.2.686 [id number] [facility] 2019-10-04 14:30:42 2019-10-04 15:36:54 Office Visit Zain Rosas [facility] 1.2.840.114 350.1.13.10 4.2.7.2.686 [id number] [facility] 2019-10-04 00:00:00 2019-10-04 00:00:00 Letter (Out) Ivonne Nayak [facility] 1.2.840.114 350.1.13.10 4.2.7.2.686 [id number] [facility] 2019-10-04 00:00:00 2019-10-04 00:00:00 Letter (Out) Ivonne Nayak [facility] 1.2.840.114 350.1.13.10 4.2.7.2.686 [id number] [facility] 2019-10-04 00:00:00 2019-10-04 00:00:00 Orders Only Doctor Unassigned, [place] [facility] 1.2.840.114 350.1.13.10 4.2.7.2.686 [id number] [id number] [facility] 2019-05-20 13:25:10 2019-05-20 14:25:03 Office Visit Ivonne Nayak [facility] 1.2.840.114 350.1.13.10 4.2.7.2.686 [id number] [facility] 2019-05-20 00:00:00 2019-05-20 00:00:00 Orders Only Doctor Unassigned, [place] [facility] 1.2.840.114 350.1.13.10 4.2.7.2.686 [id number] [facility] 2019-05-20 00:00:00 2019-05-20 00:00:00 Letter (Out) Ivonne Nayak [facility] 1.2.840.114 350.1.13.10 4.2.7.2.686 [id number] [facility] 2019-04-15 09:56:15 2019-04-15 10:37:17 Office Visit Ivonne Nayak [facility] 1.2.840.114 350.1.13.10 4.2.7.2.686 [id number] [facility] 2019-04-13 00:00:00 2019-04-13 00:00:00 Telephone Ivonne Nayak [facility] 1.2.840.114 350.1.13.10 4.2.7.2.686 [id number] [facility] Results Test Description Test Time Test Comments Results Result Co mments Source [facility] [id number] 18:58:21* Test Item Value Reference Range Interpretation Comme nts NT-proBNP (test code = 04203-5) 48 pg/mL <=125 Lab Interpretation (test cod e = 42415-7) Normal [facility] METABOLIC PANEL (85574)2024-10-26 18:49:37* Test Item Value Reference Range Interpretation Comme nts NA (test code = 2883445748) 138 mmol/L 135-145 K (test code = 0740946473) 3.8 mmol/L 3.5-5.0 CL (test code = 7056484167) 103 mmol/L 98-108 CO2 TOTAL (test code = 0319521013) 27 mmol/L 23-31 AGAP (test code = 0334382743) 8 2-16 BUN (test code = 5404946189) 10 mg/dL 7-23 GLUCOSE (test code = 8308643724) 88 mg/dL 70-110 CREATININE (test code = 2160-0) 0.48 mg/dL 0.50-1.04 L TOTAL BILI (test code = 4403206000) 0.6 mg/dL 0.1-1.1 CALCIUM (test code = 8886574560) 9.8 mg/dL 8.6-10.6 T PROTEIN (test code = 7961048415) 7.4 g/dL 6.3-8.2 ALBUMIN (test code = 9690868173) 5.1 g/dL 3.5-5.0 H ALK PHOS (test code = 5744579896) 60 U/L 34-122 ALTv (test code = 1742-6) 10 U/L 5-35 AST(SGOT) (test code = 3363247081) 37 U/L 13-40 eGFR (test code = 72699-1) 139.3 mL/min/1.73m2 CKD-EPI eGFR (2020). Assuming creatinine has been stable day-to-day for at least three months, the eGFR indicates Category G1 (>= 90 mL/min/1.73 m2) Lab Interpretation (test code = 36857-0) Abnormal [facility] WITH [id number] 18:34:34* Test Item Value Reference Range Interpretation Comme nts WBC (test code = 6690-2) 5.35 4.30-11.10 RBC (test code = 789-8) 4.37 3.93-5.25 HGB (test code = 718-7) 13.2 g/dL 11.6-15.0 HCT (test code = 4544-3) 38.9 % 35.7-45.2 MCV (test code = 787-2) 89.0 fL 80.6-95.5 MCH (test code = 785-6) 30.2 pg 25.9-32.8 MCHC (test code = 786-4) 33.9 g/dL 31.6-35.1 RDW-SD (test code = 70929-4) 41.6 fL 39.0-49.9 RDW-CV (test code = 788-0) 12.9 % 12.0-15.5 PLT (test code = 777-3) 318 166-358 MPV (test code = 25320-0) 10.3 fL 9.5-12.9 NRBC/100 WBC (test code = 9772234751) 0.0 0.0-10.0 NRBC x10^3 (test code = 0934585363) See_Comment [Automated me ssage] The system which generated this result transmitted reference range: 10*3/?L. The reference range was not used to interpret this result as normal/abnormal. GRAN MAT (NEUT) % (test code = 770-8) 43.5 % IMM GRAN % (test code = 0180161583) 0.20 % LYMPH % (test code = 736-9) 47.3 % MONO % (test code = 5905-5) 8.0 % EOS % (test code = 713-8) 0.6 % BASO % (test code = 706-2) 0.4 % GRAN MAT x10^3(ANC) (test code = 5595036924) 2.33 10*3/uL 1.88-7.09 IMM GRAN x10^3 (test code = 1791938826) 0.00-0.06 LYMPH x10^3 (test code = 731-0) 2.53 10*3/uL 1.32-3.29 MONO x10^3 (test code = 742-7) 0.43 10*3/uL 0.33-0.92 EOS x10^3 (test code = 711-2) 0.03 10*3/uL 0.03-0.39 BASO x10^3 (test code = 704-7) 0.01-0.07 [facility]PO[facility] [id number] 18:28:00* Test Item Value Reference Range Interpretation Comme nts POCT PREG (test code = 1605) Negative On board controls acceptable with C Line (test code = 3574) Yes POCT PREG LOT # (test code = 3575) [id number] POCT PREG TEST DATE ( test code = 3576) 01/07/2025 Lab Interpretation (test cod e = 57392-2) Normal [facility] 2 [id number] 18:01:15HISTORY: ?Chest pain. TECHNIQUE: PA and lateral views of the chest are obtained. Comparison hasbeenmade with 08/26/2024 study. FINDINGS: No acute pneumonia detected. No pneumothorax or pleural effusionor pulmonary congestion. Cardiomediastinal contour appears normal. No acutepulmonary abnormality is detected. CONCLUSIONS: No signs of acute cardiopulmonary disease.[facility] CenterCSF [id number] 15:20:28* Test Item Value Reference Range Interpretation Comme nts CSF CULTURE (test code = 606-4) No organisms isolated Gram stain (test code = 664-3) No PMNs or Mononuclear cells observed [facility] CenterUS Gall [id number] 21:34:31EXAM: US GALL BLADDER HISTORY: 19 years-old Female; Provided indication: r/o cholecystitis . TECHNIQUE: Limited abdominal ultrasound focused on the gallbladder wasperformed. The main portal vein was evaluated with color Doppler.Outcomes Manager images were obtained for the record. COMPARISON: Outside institution CT abdomen pelvis obtained on 08/24/2024 FINDINGS: The gallbladder is physiologically distended. No stone, wall thickening, orpericholecystic fluid is seen. The patient denied pain to sonographicpalpation. No biliary ductal dilatation is seen. The common duct is 0.[address] CenterWest Nile Virus Ab [id number] 21:22:56* Test Item Value Reference Range Interpretation Comme nts West Nile Virus Antibody IgG CSF (test code = 84693-3) 0.01 See_Comment INTERPRETI VE INFORMATION: West Nile [...] members of the Flaviviridae family, such as Thayer encephalitis virus, show extensive cross-reactivity with West [...] developed and its performance characteristics determined by [facility]. It has not been cleared or approved by the [place] Food and Drug Administration. This test was performed in a CLIA certified laboratory and is intended for clinical purposes. [Automated message] The system which generated this result transmitted reference range: <=1.29 IV. The reference range was not used to interpret this result as normal/abnormal. West Nile Virus Antibody IgM CSF (test code = 07525-8) 0.00 See_Comment INTERPRETI VE INFORMATION: West Nile [...] members of the Flaviviridae family, such as Thayer encephalitis virus, show extensive cross-reactivity with West [...] developed and its performance characteristics determined by [facility]. It has not been cleared or approved by the [place] Food and Drug Administration. This test was performed in a CLIA certified laboratory and is intended for clinical purposes.Performed By: [facility] [place] [address] [id number] Director: Johnie Welch MD, PhDCLIA Number: [id number] [Automated message] The system which generated this result transmitted reference range: <=0.89 IV. The reference range was not used to interpret this result as normal/abnormal. [facility]XR Chest 2 [id number] 23:56:39EXAM: XR CHEST 2 08/26/2024 4:24 PM HISTORY: 19 years-old Female with r/o pna TECHNIQUE: Frontaland lateral views of the chest. COMPARISON: Chest x-ray 04/24/2021 FINDINGS: Lungs: The lungs are clear. No focal opacities. No pleural abnormalitiesare detected. Heart/Mediastinum: The cardiomediastinal silhouette is normal in size. Musculoskeletal: No acute osseous abnormality.[facility] CenterMeningitis/Encephalitis Panel by [id number] 20:14:26* Test Item Value Reference Range Interpretation Comme nts Escherichia coli K1 (test code = 28586-6) Negative Negative, Indeterminate, See Comment Haemophilus influenzae (test code = 54591-4) Negative Negative, Indeterminate, See Comment Listeria monocytogenes (test code = 01806-8) Negative Negative, Indeterminate, See Comment Neisseria meningitidis (encapsulated) (test code = 20051-6) Negative Negative, Indeterminate, See Comment Streptococcus agalactiae (test code = 58686-5) Negative Negative, Indeterminate, See Comment Streptococcus pneumoniae (test code = 32319-7) Negative Negative, Indeterminate, See Comment Cytomegalovirus (test code = 28654-9) Negative Negative, Indeterminate, See Comment Enterovirus (test code = 67195-2) Negative Negative, Indeterminate, See Comment Herpes simplex virus 1 (test code = 14533-3) Negative Negative, Indeterminate, See Comment Herpes simplex virus 2 (test code = 93933-4) Negative Negative, Indeterminate, See Comment Human herpesvirus 6 (test code = 14314-8) Negative Negative, Indeterminate, See Comment Human parechovirus (test code = 99030-3) Negative Negative, Indeterminate, See Comment Varicella zoster virus (test code = 76304-2) Negative Negative, Indeterminate, See Comment Cryptococcus neoformans/gattii (test code = 67549-4) Negative Negative, Indeterminate, See Comment MITESH (test code = MITESH) Negative:A negativ e result does not rule-out infection. ?This assay does not test for all potential infectious agents. Positive:A positive test result does not necessarily indicate the presence of viable organism. ? Lab Interpretation (test code = 51561-8) Normal [facility] CenterBody Fluid Direct [id number] 19:22:43* Test Item Value Reference Range Interpretation Comme nts BF COLOR (test code = 4072416029) Clear BF WBC Count (test code = 4815926484) 1 0-5 BF RBC Count (test code = 4969971248) 1 See_Comment [Automated me ssage] The system which generated this result transmitted reference range: /?L. The reference range was not used to interpret this result as normal/abnormal. [facility] CenterBody Fluid Manual [id number] 19:22:43* Test Item Value Reference Range Interpretation Comme nts BF SEGS% (test code = 87490-8) 18 % 0-7 H BF LYMPHS% (test code = 01061-9) 73 % 28-96 BF MACROPHAGE% (test code = 05419-0) 9 % 16-56 L BF #CELLS CNTD (test code = 2276577151) 11 cells/uL Lab Interpretation (test cod e = 84462-3) Abnormal [facility] CenterCerebrospinal Fluid [id number] 18:58:31 * Test Item Value Reference Range Interpretation Comme nts GLU CSF (test code = 8794161399) 58 mg/dL 50-80 UNSPUN BODY FLUID COLOR (guanakito t code = 4954793408) Colorless UNSPUN BODY FLUID CLARITY (t est code = 0207726388) Clear SPUN BODY FLUID COLOR (test code = 4963264840) Colorless SPUN BODY FLUID CLARITY (guanakito t code = 8432912581) Clear Sediment (test code = 0102220002) No sediment [facility] CenterCerebrospinal Fluid [id number] 18:58:26 * Test Item Value Reference Range Interpretation Comme nts T. PRO CSF (test code = 4866106554) 24.0 mg/dL 15.0-45.0 UNSPUN BODY FLUID COLOR (guanakito t code = 8263720836) Colorless UNSPUN BODY FLUID CLARITY (t est code = 3678028000) Clear SPUN BODY FLUID COLOR (test code = 9416267268) Colorless SPUN BODY FLUID CLARITY (guanakito t code = 3338919205) Clear Sediment (test code = 0111751169) No sediment [facility] [id number] 19:01:04CT HEAD WO CONTRAST HISTORY: Mental status [...] imaging, ?[facility].Today's date 08/25/2024 9:35 AM HISTORY: Abdominal abscess/infection suspected. Neutropenia and sepsis. COMPARISON: CT abdomen pelvis 05/06/2020 PROCEDURE: Axial images of chest, abdomen and pelvis are obtained withoutintravenous administration of contrast. Sagittal and coronal reformats areprovided.[facility] CenterPODC [id number] 19:18:00* Test Item Value Reference Range Interpretation Comme nts POCT PREG (test code = 1605) Negative On board controls acceptable with C Line (test code = 3574) Yes POCT PREG LOT # (test code = 3575) [id number] POCT PREG TEST DATE ( test code = 3576) 08-15-2025 Lab Interpretation (test cod e = 31206-1) Normal [facility] URINALYSIS W SPECIFIC [id number] 18:23:00* Test Item Value Reference Range Interpretation [...] cloudy Lab Interpretation (test cod e = 37849-8) Abnormal [facility] URINALYSIS W SPECIFIC [id number] 18:23:00* Test Item Value Reference Range Interpretation [...] cloudy Lab Interpretation (test cod e = 93839-6) Abnormal [facility] URINALYSIS W SPECIFIC [id number] 18:23:00* Test Item Value Reference Range Interpretation [...] cloudy Lab Interpretation (test cod e = 57224-6) Abnormal [facility] MOLECULAR [id number] 20:50:59* Test Item Value Reference Range Interpretation Comme nts POCT Molecular FluA (test co de = 90817-3) Negative Negative POCT Molecular FluB (test co de = 09739-9) Negative Negative Lab Interpretation (test cod e = 40079-1) Normal [facility] MOLECULAR [id number] 20:50:59* Test Item Value Reference Range Interpretation Comme nts POCT Molecular FluA (test co de = 36457-3) Negative Negative POCT Molecular FluB (test co de = 71477-8) Negative Negative Lab Interpretation (test cod e = 46909-5) Normal [facility] GRP A STREP (MOLECULAR)2022-05-23 16:43:00* Test Item Value Reference Range Interpretation Comme nts POCT GP A STREP (test code = 69536-4) negative Negative - Negative Lab Interpretation (test cod e = 58586-4) Normal [facility] GRP A STREP (MOLECULAR)2022-05-23 16:43:00* Test Item Value Reference Range Interpretation Comme nts POCT GP A STREP (test code = 12561-9) negative Negative - Negative Lab Interpretation (test cod e = 55983-3) [facility] GRP A STREP (MOLECULAR)2022-05-23 16:43:00* Test Item Value Reference Range Interpretation Comme nts POCT GP A STREP (test code = 94125-1) negative Negative - Negative Lab Interpretation (test cod e = 03441-3) [facility]. METABOLIC PANEL (76054)2022-03-21 07:04:30* Test Item Value Reference Range Interpretation Comme nts NA (test code = 2894480856) 140 mmol/L 135-145 K (test code = 4929893131) 3.9 mmol/L 3.5-5 CL (test code = 0228122560) 102 mmol/L 98-108 CO2 TOTAL (test code = 6854576714) 26 mmol/L 23-31 AGAP (test code = 8766546530) 2-16 BUN (test code = 5390343572) 10 mg/dL 7-23 GLUCOSE (test code = 9667255433) 100 mg/dL 70-110 CREATININE (test code = 9648414488) 0.56 mg/dL 0.5-1.04 TOTAL BILI (test code = 9669519682) 0.4 mg/dL 0.1-1.1 CALCIUM (test code = 7831717931) 10.1 mg/dL 8.6-10.6 T PROTEIN (test code = 2317796296) 7.5 g/dL 6.3-8.2 ALBUMIN (test code = 5577331831) 5.8 g/dL 3.5-5 H ALK PHOS (test code = 3879028799) 66 U/L 34-122 ALTv (test code = 1742-6) 12 U/L 5-35 AST(SGOT) (test code = 9210272266) 21 U/L 13-40 MITESH (test code = [...] imaging tests). Lab Interpretation (test code = 86263-3) Abnormal [facility] WITH [id number] 06:52:47* Test Item Value Reference Range Interpretation Comme nts WBC (test code = 6690-2) See_Comment [[employer]] The system which generated this result transmitted reference range: 4.50 - 13.50 10*3/?L. The reference range was not used to interpret this result as normal/abnormal. RBC (test code = 789-8) See_Comment [[employer]] The system which generated this result [...] 33.6 g/dL 32-36 RDW-SD (test code = 19611-1) 41.7 fL 38.5-49 RDW-CV (test code = 788-0) 12.8 % 11.5-14 PLT (test code = 777-3) See_Comment [Automated messa ge] The system which generated this result transmitted reference range: 135 - 361 10*3/?L. The reference range was not used to interpret this result as normal/abnormal. MPV (test code = 57258-9) 10.3 fL 9.4-13.3 NRBC/100 WBC (test code = 9420779716) See_Comment [Automated me ssage] The system which generated this result transmitted reference range: 0.0 - 10.0 /100 WBCs. The reference range was not used to interpret this result as normal/abnormal. NRBC x10^3 (test code = 8055955034) See_Comment [Automated me ssage] The system which generated this result transmitted reference range: 10*3/?L. The reference range was not used to interpret this result as normal/abnormal. GRAN MAT (NEUT) % (test code = 770-8) 46.3 % IMM GRAN % (test code = 0020659159) 0.20 % LYMPH % (test code = 736-9) 47.6 % MONO % (test code = 5905-5) 5.4 % EOS % (test code = 713-8) 0.2 % BASO % (test code = 706-2) 0.3 % GRAN MAT x10^3(ANC) (test code = 1424211195) 3.02 10*3/uL 1.5-10.3 IMM GRAN x10^3 (test code = 4400873653) 0-0.06 LYMPH x10^3 (test code = 731-0) 3.10 10*3/uL 0.7-7.4 MONO x10^3 (test code = 742-7) 0.35 10*3/uL 0-0.5 EOS x10^3 (test code = 711-2) 0-0.4 BASO x10^3 (test code = 704-7) 0-0.1 [facility] [id number] 04:59:00* Test Item Value Reference Range Interpretation Comme nts POCT PREG (test code = 1605) Negative On board controls acceptable with C Line (test code = 3574) Positive POCT PREG LOT # (test code = 3575) [id number] POCT PREG TEST DATE ( test code = 3576) 06/30/2023 Lab Interpretation (test cod e = 43232-9) Normal [facility] CenterIMMUNOGLOBULIN E, [id number] 03:49:03* Test Item Value Reference Range Interpretation Comme nts IGE (test code = 29364-8) <2 See_Comment REFERENCE INTERV AL: Immunoglobulin E, Serum Access complete set of age- and/or gender-specific reference intervals for this test in the [email or web address] [facility] Test Directory (Treato).Performed By: [facility] [place] [address] [id number] Director: Jessica Mitchell MD [Automated message] The system which generated this result transmitted reference range: <=537. The reference range was not used to interpret this result as normal/abnormal. [facility] CenterIMMUNOGLOBULIN G A M [id number] 15:45:31 * Test Item Value Reference Range Interpretation Comme nts IgA (test code = 2512430775) 16 mg/dL 70-312 L IgG (test code = 2830649985) 425 mg/dL 636-1600 L IgM (test code = 1969671428) 22 mg/dL 56-352 L Lab Interpretation (test cod e = 66723-4) Abnormal [facility] Consult Notes Date/Time Note Provider Source 2024-08-28 10:30:00 Associated Order(s): CONSULT INFECTIOUS DISEASE INFECTIOUS DISEASES CONSULT NOTE Date of Service: 08/29/2024 00:39 Patient Name: Marlene Taylor Consultation requested by: Neo Stauffer MD Reason for Consult: has CVID, high [...] mg, 650 mg, Oral, Q6HPRN, Du Castellanos, DO proMETHazine (PHENERGAN) 25 mg in NS 50 [...] ID faculty. Melita Craft Infectious Disease Fellow STRANDER Associated attestation - Kiki Bolivar MD PhD - 08/29/2024 4:11 PM WIRE STRANDER I personally examined the patient on 08/28/2024 and agree with note as written by Dr. Craft. I actively participated in the decision-making process. Please see the fellow's note for additional details. INFECTIOUS DISEASE [facility] 2024-08-25 15:08:49 Associated Order(s): CONSULT FOOD AND NUTRITION MEDICAL NUTRITION THERAPY ASSESSMENT NOTE REASON FOR CONSULT: Consult for low BMI/ONS and Nursing Screen: [...] due to Reason: RD not on campus [employer] Strength Assessed: No Pertinent Medications: acyclovir, ampicillin, [...] -3.18)* * Growth percentiles are based on [facility] (Girls, 2-20 Years) data. Usual Body Weight: 40.5 kg (89 lb 4.6 oz) Percent of weight change: Percent of Weight change: 8.64% Timeframe of weight change: Timeframe of weight change: 1 year BMI: Body mass index is 17.18 kg/m?. (Underweight ) IBW: 52.3 kg %IBW: 84% Estimated Energy Needs Calories: 5336-2142 kcal/day; [place]-St. Jeor x AF1.3-1.5 Current Weight Protein: 44-53 g/day, 1.0-1.2 g/kg Current Weight Fluid: 8852-5293 ml/day (1 ml/kcal) or per MD/Medical Team Current Dietary Order(s): Regular Diet; Diet Texture: Regular. Food Allergies/Cultural or Mandaen Preferences: Allergies Allergen Reactions Vancomycin Itching NUTRITION [...] RD, CSG, LD Clinical Dietitian Office [place] Levi [facility] 2024-08-25 08:18:01 Associated Order(s): CONSULT ALLERGY [...] treated with cefepime, ampicilllin, acyclovir and Levaquin. [phone] - Jaime with pharmacy MEDICATIONS: Current Facility-Administered [...] the infection. We would also recommend a social worker psychiatric consult to help with insurance as she [...] Fisher MD Allergy and Immunology Fellow, PGY-4 STRANDER Associated attestation - Jeni Fuentes MD - 08/26/2024 7:58 PM WIRE STRANDER I agree with Dr. Fisher's fellow note with the following addition(s)/correction(s): During childhood, patient had experienced gaps in insurance coverage and therefore, was not always receiving immunoglobulin replacement therapy regularly even prior to January 2022 (last follow up visit with primary umbrella supervisor, Dr. Lloyd). Given that patient is not [...] note for additional details. 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 Patient was transferred to [facility] for c/f sepsis. Denies any diarrhea or [...] 650 mg, Q6HPRN ondansetron, 4 mg, Q8HPRN STRANDER Associated attestation - Neo Stauffer MD - 08/24/2024 12:13 PM WIRE STRANDER Images from the original note were not included. [facility] [[email or web address]] General Medicine Inpatient Service Faculty Attestation After discussion with the resident and the rounding team, I examined Marlene Regalado Nisreen on the date of service indicated. I agree with resident's note as written. I actively participated in the decision-making process regarding the patient's care. Please see the resident's note for additional details. All Medical Issues (pulled from [employer], may not be relevant to this hospitalization): [...] Additional Faculty Assessment (if any): N/A Neo Stauffer MD, FAAP, FACP, SFHM Portions of this [...] Ordering referrals and/or communicating with other health physician locums urgent care (when not separately reported), Documenting clinical information in the electronic or other health record, Independently interpreting results (not separately reported) and/or communicating results to the patient/family/caregiver, and Care coordination (not separately reported) [facility] Notes Date/Time Note Provider Source 2024-11-21 14:15:30 .A user error has taken place: encounter opened in error, closed for administrative reasons. Yovana Roche [facility] 2024-11-02 12:11:46 Called pt to asked where she would like to go. Pt said she needed to discuss with her mom on what clinc would be best for them. NE Nelson [facility] 2024-10-31 09:10:44 Please contact patient for updated insurance. [facility] to see about getting patient established with them NE Jacob RN [facility] 2024-10-31 08:06:37 Please perform chart review and see if it was included in her last admission discharge paper work, but usually it would be infectious disease as well as immunology for her CVID. She will also need a family medicine provider appt to move over to adult medicine. Her case is complicated and beyond pediatrics. We can do referrals to ID and immunology but she will also need help with family medicine on plan. Her plan should be to contact her new insurance for a list of Primary care on her plan. If [facility] [[email or web address] the we can schedule with [facility] med. If not then she can make an appt with new Dr. We can do referrals to ID and Immunology but we will need new insurance information. [facility] FATUMA-PHYSICIAN TECHNICAL TRANSLATOR MIDLEVEL PROVIDER [facility] 2024-10-28 16:39:38 Spoke with pt and MOC-- pt is feeling "okay", ER told her everything looked perfect, diagnosed her with depression and told her to "follow up with disease doctor". MOC and pt are not sure which doctor that would be. Pt is supposed to be getting insurance starting the but it is a marketplace plan and "wont cover anything" per pt. Pt also mentioned she was supposed to get an infusion after being discharged from hospital admission but never did. Please advise on what type of referral to specialist pt might need to further care for her symptoms. [facility] 2024-10-28 16:00:06 Please call and check on Marlene. See if she was able to understand steps to get aide and if she needs additional guidance finding PCP on new insurance plan. Please check that she is improving./acp STRANDER [facility] 2024-10-26 14:19:14 Patient given discharge instructions on fatigue. Given prescription X 1 for zofran. Advised to follow up with pcp. Pt left ER ambulatory, no signs of distress. NE Pineda RN [facility] 2024-10-26 11:10:36 Patient is here for ongoing virus concerns. [place] around [place] was seen at and here and diagnosed with virus for nausea, intermittent vomiting, weakness and fatigue with chest pain intermittently with no cough. Then she had fever for a week, but hasn't since then, but has all other listed symptoms. She was sent to [place] from ER back around [place] on second visit. Patient states she also recently quit vaping. Patient is here for the ongoing symptoms and "feeling like I'm dying." NE Kessler RN [facility] 2024-08-30 10:58:30 Problem: Falls, Risk of Goal: Absence of falls Outcome: Progressing as expected Problem: Discharge Planning Goal: Adequate for discharge Outcome: Progressing as expected Goal: Effective communication Outcome: Progressing as expected NE Shields RN [facility] 2024-08-30 02:47:11 Problem: Falls, Risk of Goal: Absence of falls Outcome: Progressing as expected Problem: Discharge Planning Goal: Adequate for discharge Outcome: Progressing as expected Goal: Effective communication Outcome: Progressing as expected NE [facility] 2024-08-29 12:43:45 Problem: Falls, Risk of Goal: Absence of falls Outcome: Progressing as expected Problem: Discharge Planning Goal: Adequate for discharge Outcome: Progressing as expected Goal: Effective communication Outcome: Progressing as expected [facility] 2024-08-29 04:40:00 Problem: Falls, Risk of Goal: Absence of falls Outcome: Progressing as expected Problem: Discharge Planning Goal: Adequate for discharge Outcome: Progressing as expected Goal: Effective communication Outcome: Progressing as expected STRANDER Maddy Huston RN [facility] 2024-08-28 10:06:03 Problem: Falls, Risk of Goal: Absence of falls Outcome: Progressing as expected Problem: Discharge Planning Goal: Effective communication Outcome: Progressing as expected STRANDER Chelsey Oleary RN [facility] 2024-08-28 07:50:33 Problem: Falls, Risk of Goal: Absence of falls Outcome: Progressing as expected Problem: Discharge Planning Goal: Adequate for discharge Outcome: Progressing as expected Goal: Effective communication Outcome: Progressing as expected STRANDER Lia Mireles RN [facility] 2024-08-27 18:10:30 Problem: Falls, Risk of Goal: Absence of falls Outcome: Progressing as expected Problem: Discharge Planning Goal: Adequate for discharge Outcome: Progressing as expected Goal: Effective communication Outcome: Progressing as expected STRANDER Zulema Albarran RN [facility] 2024-08-27 03:51:10 Problem: Falls, Risk of Goal: Absence of falls Outcome: Progressing as expected Problem: Discharge Planning Goal: Adequate for discharge Outcome: Progressing as expected Goal: Effective communication Outcome: Progressing as expected NE Gonzales RN [facility] 2024-08-26 17:34:08 Problem: Falls, Risk of Goal: Absence of falls Outcome: Progressing as expected Problem: Discharge Planning Goal: Adequate for discharge Outcome: Progressing as expected Goal: Effective communication Outcome: Progressing as expected STRANDER [facility] 2024-08-26 11:22:36 Antimicrobial Stewardship Program Note Based on review of Marlene Taylor's chart, microbiology and susceptibility results, and radiology, the antimicrobial stewardship program recommends the following: Microbiology 08/24 Blood cultures - NGTD Anti-infectives Ceftriaxone 08/24 Doxycycline 08/24 -08/25 Levofloxacin 08/25 - Acyclovir 08/25 - Ampicillin 08/25 - Cefepime 08/25 - - Recommend changing levofloxacin to linezolid 600 mg PO Q12h as a vancomycin alternative due to 1:1 serum to PREVOCATIONAL/REHABILITATION COUNSELOR penetration - Linezolid has 100% bioavailability so PO is appropriate as long as patient can take and absorb oral medications Please call with questions or concerns. Martha Turpin, PharmD, [facility] Clinical Drill Grinder - Infectious Diseases Antimicrobial [place]: [id number] [address] [facility] 2024-08-26 05:56:20 Discussed PO meds vs suppository w/ pt. Pt initially agreed to liquid tylenol vs pill given she refuses to swallow pills at home. After extensive encouragement pt able to get majority of medication down. Little bit at a time and w/ much anxiety. Discussed importance of pt being able to take a pill given how she poorly handles taking larger doses of liquid medication. Given how not all medications are found in liquid form, and those that are will generally be in more than 5ml forms, it is in her best interest to begin to try and take pills. Parents were at bedside for conversation, and seem to understand the benefits of encouraging pt to learn to swallow pills in the long run. [facility] Yari Valiente RN [facility] 2024-08-25 13:30:47 Problem: Falls, Risk of Goal: Absence of falls Outcome: Progressing as expected Problem: Discharge Planning Goal: Adequate for discharge Outcome: Progressing as expected Goal: Effective communication Outcome: Progressing as expected [facility] 2024-08-24 11:02:56 AdmissionCare Guideline: Sepsis (and Other Febrile Illness without Focal Infection), Inpatient Based on the indications selected for the patient, the bed status of Inpatient was determined to be NOT MET The following indications were selected as present at the time of evaluation of the patient: - Clinical Indications for Admission to Inpatient Care - Admission is indicated for 1 or more of the following: - Hypotension, as indicated by ALL of the following: - Not patient baseline (eg, healthy adult with low SBP) or intentional therapeutic goal (eg, low SBP as treatment goal in heart failure) - Low blood pressure, as indicated by 1 or more of the following: - Mean arterial pressure less than 70 mm Hg in adult or child 10 years or older AdmissionCare documentation entered by: Jose Shah [facility] Visual Threat, 28th edition, Copyright ? 2023 [facility] [employer] [facility] All Rights Reserved. [id number] [facility] 2024-08-23 12:11:00 Regarding: CBCW, 19 yr old female, fever x 1 week, 103.7 this morning, requesting to speak with nurse. ----- Message from Patient Salesman/Owner sent at 08/23/2024 12:10 PM WIRE STRANDER ----- Marlene Taylor is a 19 year old female STRANDER Melonie Scott RN [facility] 2024-08-23 12:11:00 Adult Triage Assessment Last Clinic Visit: yesterday went to the ER for fever Primary Symptom: fever Onset / Duration: a week Location / Description: systemic Pain / Severity: 0/10 Associated Symptoms: shoulders and right hip in pain when waking up in the morning Fever / Method: took temperature this morning about 10 am it was 103.4 ( did not provide method of temperature) Hydration: drinking Pedialyte, last urination was 20 minutes ago Treatment so far: Motrin 400 mg taken 45 minutes ago- now sweating Effect on ADL's: some change LMP: 1 month ago Pre-existing condition / Immunocompromised: CVID, Reason for Disposition [1] Recent medical visit within 24 hours AND [2] condition / symptoms SAME (unchanged) AND [3] caller has additional questions triager can answer Protocols used: Recent Medical Visit for Illness Follow-up [id number] Per Marlene," I still have a fever. How long am I going to have this fever" I advised her if she still has fever omn call clinic to be seen. STRANDER [facility] 2024 15:38:14 PT D/C home. GCS15, VS stable. Given D/C paperwork. Pt ambulatory at time of discharge. Pt educated on med usage, follow up care, s/s worsening condition, need for hydration. Pt verbalized understanding. Pt ambulated from ED in NAD with family. Prescription x 1 sent to pharmacy. NE Shelby RN [facility] 2024 12:41:20 CC: patient presents to the ER with complaints of fever and kidney pain that began night. Patient's Mother states she was seen at [facility] for same symptoms where she was diagnosed with an UTI. Awake, alert, oriented, resp reg unlabored, skin warm and dry, color appropriate for race, moves all ext without difficulty, amb without assistance. Appears in no distress. 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 Today is Thursday. She last had medication for her fever yesterday. Nothing to eat or drink today. She reports she was seen at outside hospital recently and diagnosed with a UTI and prescribed antibiotics. She is been on them for 4 days. She denies any dysuria or hematuria. She states her last medical period was 1 month ago and she denies being . No history of asthma. She does not smoke. No sore throat. No ear pain. Here for evaluation. Past Medical History/Immunizations: Past Medical History: Diagnosis Date ADHD CVID (common variable immunodeficiency) Dysmenorrhea 11/09/2020 Tetanus received in last 5 years: No Childhood immunizations: Up-to-date Allergies: No Known Allergies Past Social History: Tobacco Use Never Smokeless Tobacco: Current user of smokeless tobacco. Comments: Vapes Vaping Use Never used Alcohol Use Never. Drug Use Never. Sexual Activity Not sexually active. Past Surgical History: Past Surgical History: Procedure Laterality Date MYRINGOTOMY Review of Systems: Review of Systems Constitutional: Positive for chills and fever. Respiratory: Positive for cough. Cardiovascular: Negative for chest pain. Gastrointestinal: Negative for abdominal pain and vomiting. Genitourinary: Negative for dysuria. Musculoskeletal: Positive for myalgias. Negative for neck pain and neck stiffness. Skin: Negative for wound. Neurological: Negative for dizziness. Psychiatric/Behavioral: Negative for agitation. Endocrine: Negative for goiter. Physical Exam: ED Triage Vitals [08/22/24 1242] Weight 41.7 kg (92 lb) Actual or estimated Estimated by patient/family report Height 1.6 m (5' 3") BP 103/64 Pulse 127 Resp 16 Temp 38.6 ?C (101.4 ?F) Temp source Oral SpO2 93 % Measured on Physical Exam Vitals and nursing note reviewed. Constitutional: Appearance: Normal appearance. She is normal weight. HENT: Head: Normocephalic and atraumatic. Right Ear: Tympanic membrane, ear canal and external ear normal. Left Ear: Tympanic membrane, ear canal and external ear normal. Nose: Nose normal. Mouth/Throat: Mouth: Mucous membranes are dry. Pharynx: Oropharynx is clear. No oropharyngeal exudate or posterior oropharyngeal erythema. Cardiovascular: Rate and Rhythm: Regular rhythm. Tachycardia present. Pulmonary: Effort: Pulmonary effort is normal. No respiratory distress. Breath sounds: No stridor. No wheezing or rhonchi. Abdominal: General: There is no distension. Palpations: Abdomen is soft. There is no mass. Tenderness: There is no abdominal tenderness. There is no right CVA tenderness, left CVA tenderness, guarding or rebound. Hernia: No hernia is present. Musculoskeletal: General: Normal range of motion. Cervical back: Normal range of motion and neck supple. Skin: General: Skin is warm and dry. Neurological: General: No focal deficit present. Mental Status: She is alert and oriented to person, place, and time. Radiology: No orders to display Lab Results: Lab Results URINALYSIS - Abnormal Result Value Ref Range APPEARANCE Cloudy (*) Clear COLOR Alva (*) Yellow PH 5.0 4.8 - 8.0 SP GRAVITY 1.030 1.003 - 1.030 GLU U QUAL Normal Normal BLOOD Negative Negative KETONES 80 mg/dL (*) Negative PROTEIN 100 mg/dL (*) Negative UROBILIN 4.0 mg/dL (*) Normal BILIRUBIN Negative Negative NITRITE Negative Negative LEUK PHILLIP Negative Negative RBC/HPF 5 (*) 0 - 3 HPF WBC/HPF 12 (*) 0 - 5 HPF BACTERIA Many (*) Negative MUCOUS Marked (*) Negative LPF SQ EPITH 23 HPF POCT TEST - Normal POCT PREG Negative On board controls acceptable with C Line Yes POCT PREG LOT # [id number] POCT PREG TEST DATE 08-15-2025 INFLUENZA A/B RSV COVID NAAT - Normal Influenza A NAAT Negative Negative Influenza B NAAT Negative Negative RSV by PCR Negative Negative SARS-CoV-2 NAAT Negative Negative EKG: If EKG completed, see Procedure Note. Orders and Treatments: Orders Placed This Encounter Procedures POCT TEST URINALYSIS Influenza A B RSV COVID NAAT Lab Only COVID Interpretation Orders Placed This Encounter Medications ondansetron (ZOFRAN-ODT) disintegrating tablet 4 mg acetaminophen (TYLENOL) tablet 650 mg ondansetron 4 mg disintegrating tablet First Provider Eval: ED Events Date/Time Event User Comments 08/22/24 1247 Medical Screening Begins JENNIFER ROCHE DO -- 08/22/24 1247 First Provider Evaluation JENNIFER ROCHE DO -- ED COURSE Diagnosis/Impression as of 08/22/24 1518 Fever, unspecified fever cause Viral illness Nausea Procedures: Procedures MDM: Medical Decision Making The patient presents from home with her mother for evaluation for body aches, cough, fever as well as nausea since . Today is Thursday. She last had medication for her fever yesterday. Nothing to eat or drink today. She reports she was seen at outside hospital recently and diagnosed with a UTI and prescribed antibiotics. She is been on them for 4 days. She denies any dysuria or hematuria. She states her last medical period was 1 month ago and she denies being . No history of asthma. She does not smoke. No sore throat. No ear pain. The patient is febrile upon arrival at 1 1.4 degrees orally and tachycardic in the 120s. Her lungs are clear bilaterally. Her tympanic members are pearly kidd. Her pharynx is pink and without exudates erythema. Her abdomen is soft and nontender. She has no CVA tenderness bilaterally. Will give the patient antiemetics followed by an antipyretic. Will screen the patient for COVID, influenza and RSV. Will also check a urinalysis. Anticipate discharge home later. 1515 -the patient is doing well. She is feeling better after the antiemetics and antipyretics given here in the ER. Her fever has resolved. Her UPT is negative and her urinalysis shows no infection. Her viral swab for COVID, influenza and RSV is also negative. Recommend she use Zofran ODT as needed for nausea and vomiting as well as povn-gra-gtnmtfr cough and cold medication such as DayQuil and NyQuil. She remained stable here in the ER and is okay for discharge home with PCP follow-up. Problems Addressed: Fever, unspecified fever cause: acute illness or injury Nausea: acute illness or injury Viral illness: acute illness or injury Amount and/or Complexity of Data Reviewed Independent Historian: parent Labs: ordered. Decision-making details documented in ED Course. Risk OTC drugs. Prescription drug management. Flowsheet Documentation: Scoring Tools: No data recorded Disposition/Condition: ED Disposition ED Disposition Discharge Condition Stable Comment -- Discharge Medications: Patient's Medications START taking these medications ONDANSETRON 4 MG DISINTEGRATING TABLET Take 1 tablet by mouth every 8 (eight) hours as needed for Nausea and Vomiting (N/V). CONTINUE taking these medications which have NOT CHANGED ALBUTEROL (PROAIR HFA) 90 MCG/ACTUATION INHALER Inhale 2 Puffs every 6 (six) hours as needed for Wheezing or Shortness of Breath. CETIRIZINE (ZYRTEC) 10 MG TABLET Take 1 tablet by mouth in the morning for 30 days. FLUOXETINE 10 MG CAPSULE Take one capsule once at day for two weeks then increase to two tabs po once a day FLUTICASONE PROPIONATE 50 MCG/ACTUATION NASAL SPRAY Use 1 [place] in each nostril in the morning for 30 days. IMMUNE GLOBULIN, HUMAN,, IGG, (HIZENTRA) 4 GRAM/20 ML (20 %) SUBCUTANEOUS INFUSION RTU inject 40 mL under the skin every 2 (two) weeks. NORGESTIMATE-ETHINYL ESTRADIOL 0.25-35 MG-MCG PER TABLET Take 1 tablet by mouth in the morning. PEDI MULTIVIT NO.140-IRON FUM (KIDS MULTIVITAMIN COMPLETE) 18 MG IRON CHEW Take 1 tablet by mouth in the morning. TRAZODONE 50 MG TABLET Take 1 tablet by mouth at bedtime. START taking Modified Medications as Prescribed No medications on file STOP taking these medications DEXTROMETHORPHAN-GUAIFENESIN 10-100 MG/5 ML SOLUTION Take 10 mL by mouth every 6 (six) hours as needed for Cough. FAMOTIDINE 20 MG TABLET Take 1 tablet by mouth in the morning and 1 tablet in the evening. FLUTICASONE PROPIONATE 44 MCG/ACTUATION INHALER Inhale 2 Puffs 2 (two) times daily. FLUTICASONE PROPIONATE 50 MCG/ACTUATION NASAL SPRAY Use 1 [place] in each nostril in the morning. ONDANSETRON 8 MG DISINTEGRATING TABLET Take 1 tablet by mouth every 8 (eight) hours as needed for Nausea and Vomiting (N/V). Follow-up: Electronically signed by: Jennifer Roche DO 08/22/24 1518 [facility] 2024 10:34:00 Regarding: Crying on phone from severe pain,Fever x 3 days, hard to breathe, body aches, has a UTI ----- Message from Patient Salesman/Owner sent at 2024 10:34 AM WIRE STRANDER ----- Marlene Taylor is a 19 year old female Fever x 3 days, hard to breathe, body aches, has a UTI, crying on phone from severe pain No appts available today at clinic [place] Duran RN [facility] 2024 10:34:00 Adult Triage Assessment Last Clinic Visit: 08/11/24, slow wt gain Primary Symptom: pain Onset / Duration: couple days Location / Description: systemic Pain / Severity: 04/09 Associated Symptoms: hip and back pain, has UTI Fever / Method: 102.8F orally a few min ago Hydration: eating less, drinking fluids, last void 0300, denies dysuria or hematuria Treatment so far: Motrin 400mg midnight Effect on ADL's: some LMP: "a month ago" Pre-existing condition / Immunocompromised: ADHD, CVID Marlene Taylor is a 19 year old female whose calling for advice with pain. Pt reports onset a couple of days ago. Pt reports pain to hips, and back. Pt reports she was dx with a UTI and has been on abx x4 days. Pt reports she is having fever as well. Pt denies dysuria, hematuria, or inability to empty her bladder. Assessment and triage completed per protocol. Patient verbalizes understanding and agrees to follow plan of care. Pt verbalized understanding of need for ER eval and will go to [facility] ER within 1 hr as advised. Pt had no further questions or concerns. Call back advice given and pt verbalized understanding. Josselyn Duran RN Reason for Disposition Patient sounds very sick or weak to the triager Protocols used: Urinary Tract Infection on Antibiotic Follow-up Call - [id number] STRANDER [facility] 2024-05-09 14:44:42 Spoke with pt-- she states she has been very anxious and had an anxiety attack recently, pt also mentioned maybe wanting to start medication. Pt had an interview today and starting Thursday so she will be able to pay the bill as soon as she gets her check. Pt does not recall the conversation with SW in January 2024, she will need updated resources and referrals if needed. Pt reports not having active suicidal thoughts or thoughts of hurting herself. Amy Jacob RN [facility] 2024-05-09 14:13:34 Can you call patient and triage to see if she is best served here, UC, ER or if she maybe needs a social work consult for services. Their is documentation that she wants the appt and CC is listed as anxiety, but cannot afford to pay for the appt. We will not turn her away but there may be community resources or more urgent resources than waiting till tomorrow./acp [facility] 2024-05-09 08:54:07 Spoke to her- wont be able to pay for appt. Still needing to be seen- Birgit Stiles [facility] 2024-05-09 07:53:04 Marlene Taylor is a 18 year old female Pt has an appointment for 05/09. Pt is self pay. Pt would like to speak to the office regarding co pay. Please advise. [phone] (home) Trupti Boland [facility] 2024-02-01 09:35:25 Called and spoke with [facility], that is who answered the number left to call back ([facility] is in chart). She states that patient stayed at a friends house and didn't have a ride to her appointment today. I gave her [facility] [[email or web address] [employer]GET SPECIALIST phone number ([phone]) to contact them for pricing questions. Verbal understanding from [facility]. [facility] 2024-02-01 07:51:07 Patient has appointment this morning. Will contact her if she doesn't show. She will need to contact whoever put it in to find out removal cox. T [facility] 2024-01-30 15:59:04 Marlene Taylor is a 18 year old female is calling In to see how much it will cost out of pocket to have her control implant removed. Please advise [phone] Diomedes Scott [facility] 2024-01-26 09:21:24 Called to check on pt and triage, no answer, and unable to leave VM. Will try again at a later time. Monse Bradley MA [facility] 2024-01-26 09:11:28 Please call pt and triage need for sooner appointment. Made on [employer] for tomorrow but comment is " checked AAKASH". Please advise./acp [facility]
--- NOTE | 2025-06-15 06:40 | ER ---
Nurse's Notes [facility] Name: Ana Paula Nielson Age: 19 yrs Sex: Female : 2005 Arrival Date: 06/15/2025 Time: 06:13 Bed 4 Private MD: Diagnosis: Foreign body in left ear Presentation: 06/15 06:25 Chief complaint: Patient states: felt a bug crawl on my neck and went to swat it and vc1 felt it crawl in my ear. Coronavirus screen: Client denies travel out of the [place] in the last 14 days. At this time, the client does not indicate any symptoms associated with coronavirus-19. Ebola Screen: Patient negative for fever greater than or equal to 101.5 degrees Fahrenheit, and additional compatible Ebola Virus Disease symptoms Patient denies exposure to infectious person. Patient denies travel to an Ebola-affected area in the 21 days before illness onset. No symptoms or risks identified at this time. Initial Sepsis Screen: Does the patient meet any 2 criteria? No. Patient's initial sepsis screen is negative. Does the patient have a suspected source of infection? No. Patient's initial sepsis screen is negative. Risk Assessment: Do you want to hurt yourself or someone else? Patient reports no desire to harm self or others. Onset of symptoms was June 15, 2025. 06:25 Method Of Arrival: Ambulatory vc1 06:25 Acuity: GERARD 5 vc1 Triage Assessment: 06:32 General: Appears in no apparent distress. uncomfortable, slender, well groomed, well vc1 developed, well nourished, Behavior is calm, cooperative, appropriate for age. Pain: Denies pain. EENT: Reports insect in left ear. Neuro: Level of Consciousness is awake, alert, obeys commands, Oriented to person, place, time, situation, Appropriate for age. Cardiovascular: Capillary refill < 3 seconds Patient's skin is warm and dry. Respiratory: Airway is patent Respiratory effort is even, unlabored, Respiratory pattern is regular, symmetrical. GI: No deficits noted. No signs and/or symptoms were reported involving the gastrointestinal system. : No deficits noted. No signs and/or symptoms were reported regarding the genitourinary system. Derm: Skin is intact, is healthy with good turgor, Skin is dry, Skin is normal, Skin temperature is warm. Musculoskeletal: Circulation, motion, and sensation intact. Range of motion: intact in all extremities. 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 - Infectious Disease History:: Denies. - Social history:: Smoking status: Reported history of juuling and/or vaping. Screenin:32 Abuse screen: Denies threats or abuse. Nutritional screening: No deficits noted. vc1 Tuberculosis screening: No symptoms or risk factors identified. 06:34 [facility] ED Fall Risk Assessment (Adult) History of falling in the last 3 months, at6 including since admission No falls in past 3 months (0 pts) Confusion or Disorientation No (0 pts) Intoxicated or Sedated No (0 pts) Impaired Gait No (0 pts) Mobility Assist Device Used No (0 pt) Altered Elimination No (0 pt) Score/Fall Risk Level 0 - 2 = Low Risk. Assessment: 06:32 Reassessment: Provider at bedside assessing patient's ear for foreign body at this at6 time. All questions answered. 06:39 General: Appears distressed, uncomfortable, Behavior is anxious, Smells of Reports at6 feeling of a bug crawling into her ear. Vital Signs: 06:25 BP 124 / 71; Pulse 99; Resp 14; Temp 98; Pulse Ox 99% ; Weight 47.63 kg; Height 5 ft. 3 vc1 in. ; 06:25 Body Mass Index 18.60 (47.63 kg, 160.02 cm) vc1 ED Course: 06:16 Patient arrived in ED. gm2 06:21 Tang Barrett DO is Attending Physician. tt7 06:28 Triage completed. vc1 06:31 Arm band placed on left wrist. vc1 06:34 Marlene Barrett, RN is Primary Nurse. at6 06:34 Patient has correct armband on for positive identification. Provided Education on: Plan vc1 of care. 06:34 Assisted provider with: checking patient ear for foreign body. at6 06:43 Patient did not have IV access during this emergency room visit. at6 Administered Medications: No medications were administered Medication: 06:32 VIS not applicable for this client. vc1 Outcome: 06:40 Discharge ordered by . tt7 06:42 Discharged to home ambulatory, at6 06:42 Condition: stable 06:42 Discharge instructions given to patient, Demonstrated understanding of follow-up care, 06:43 Patient left the ED. at6 Signatures: Yulissa Pineda, RN RN vc1 Ade Chavez gm2 Tang Barrett, DO tt7 Marlene Barrett RN RN at6
[2025-06-15 07:26] VITALS: BP 124/71; TEMP 98; O2SAT 99
--- NOTE | 2025-06-16 06:43 | EDPHYS ---
Physician Documentation [facility] Name: Ana Paula Nielson Age: 19 yrs Sex: Female : 2005 Arrival Date: 06/15/2025 Time: 06:13 Bed 4 Private MD: ED Physician Tang Barrett HPI: 06/15 06:57 This 19 yrs old Female presents to ER via Ambulatory with complaints of Foreign Body In tt7 Ear. 06:57 Patient reports that she felt a insect crawled into her left ear, denies any pain, tt7 reports uncomfortable sensation of insect crawling around in her left ear. 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 - Infectious Disease History:: Denies. - Social history:: Smoking status: Reported history of juuling and/or vaping. ROS: 06:58 Constitutional: negative for fever. Cardiovascular: negative for chest pain. tt7 Respiratory: negative for shortness of breath. Abdomen/GI: negative for abdominal pain, nausea, vomiting, diarrhea. MS/Extremity: negative for injury and deformity. Skin: negative for rash. Neuro: negative for focal weakness. Exam: 06:58 Constitutional: Constitutional: vital signs reviewed, well appearing Head: tt7 normocephalic Eyes: no conjunctival injection, anicteric sclerae, bilateral tympanic membranes are clear and normal, bilateral external auditory canals are clear without erythema or tenderness ENMT: mucus membranes moist Neck: trachea midline, no JVD Respiratory: normal respiratory effort, no accessory muscle use, no audible wheezing Cardiovascular: Regular rate and rhythm, no lower extremity edema Abdomen: nondistended MSK: normal ROM of extremities, no gross deformities Skin: warm, dry, intact Neuro: alert and oriented with appropriate mental status, normal speech, follows commands, no focal neurologic deficits Psych: Very anxious Vital Signs: 06:25 BP 124 / 71; Pulse 99; Resp 14; Temp 98; Pulse Ox 99% ; Weight 47.63 kg; Height 5 ft. 3 vc1 in. ; 06:25 Body Mass Index 18.60 (47.63 kg, 160.02 cm) vc1 MDM: 06:21 Medical Screening Exam initiated tt7 06:59 Data reviewed: vital signs, nurses notes. ED course: Patient presented very anxious tt7 about insect in her left ear, vital signs stable, 3 mL of 1% lidocaine were placed in the left ear to humanely euthanized potential insect, the ear was then examined and no insect was identified, the tympanic membrane was intact and without evidence of infection, no excoriations or injury to the external auditory canal, afterwards a mosquito was seen flying around the patient's head, I personally killed the mosquito, patient was discharged in stable condition. Administered Medications: No medications were administered Disposition: 07:00 Co-signature as Attending Physician, Tang Barrett DO. tt7 Disposition Summary: 06/15/25 06:40 Discharge Ordered Notes: Location: Home tt7 Problem: new tt7 Symptoms: are resolved tt7 Condition: Stable tt7 Diagnosis - Foreign body in left ear tt7 Followup: tt7 - With: Emergency Department - When: As needed - Reason: Followup: tt7 - With: Private Physician - When: 1 - 2 days - Reason: Recheck today's complaints, Re-evaluation by your physician Forms: - Medication Reconciliation Form tt7 - Antibiotic Education tt7 - Prescription Opioid Use tt7 - Patient Portal Instructions tt7 - Leadership Thank You Letter tt7 Signatures: Yulissa Pineda, RN RN vc1 Tang Barrett DO DO tt7
== END 2025-06-15 06:43 | disposition home or self-care (01) ==
LOC: ER 06:13
DX: T16.2XXA Foreign body in left ear, initial encounter (principal)
CPT/HCPCS: 99282